=== PATIENT | female | born 1985 | race Caucasian/White ===

== ENCOUNTER 2024-12-06 23:23 | Outpatient (CLI) | payer MEDICAID, SELFPAY ==
[2024-12-06 23:39] VITALS: BMI 24.5
[2024-12-06 23:51] VITALS: BP 129/71; PULSE 90; RESP 16; TEMP 36.4
[2024-12-07 00:18] LABS: Color, Urine Yellow (Yellow); Glucose, Dipstick Normal (Normal); Ketone-Dipstick Negative (Negative); Leukocyte Esterase-Dipstick Negative /ul (Negative); Nitrite-Dipstick Negative (Negative); Occult Blood-Urine Negative /ul (Negative); Protein-Dipstick 15 mg/dl (Negative); Specific Gravity, Urine 1.015 (1.002-1.030); Urine Bilirubin Dipstick Negative (Negative)
[2024-12-07 00:38] LABS: ROM Internal Control Test YES-OK TO RESULT pt. (Internal QC); ROM Patient Test Negative (Negative); Record Kit Lot#, ROM+ K3607
[2024-12-07 01:01] LABS: Fetal Fibronectin Negative
[2024-12-07 01:02] LABS: Record Kit Lot#, fFN L4921
== END 2024-12-07 00:55 | disposition home or self-care (01) ==
LOC: WPOUT 23:37 → WP 23:38
PROVIDERS: Visit Provider Obstetrics & Gynecology
DX: O47.02 False labor before 37 completed weeks of gestation, second trimester (principal); Z3A.27 27 weeks gestation of pregnancy
CPT/HCPCS: 59025; 59050; 81002; 82731; 84112; 99221; G0378

== ENCOUNTER 2025-02-03 04:35 | Outpatient (CLI) | payer MEDICAID, SELFPAY ==
[2025-02-03 04:44] VITALS: BMI 25.5
--- OUTSIDE RECORDS SUMMARY | 2025-02-03 04:47 | XMS RPT_ITS | CCD ---
Author Organization [facility] Care Team Providers Care Demurrage Clerk Name Role Phone Rhys Drake W Unavailable Unavailable Rhys Drake W Unavailable Unavailable No Doctor Assigned, Nodr Unavailable Unavail able Michelle Mckee Unavailable Unavailable Unavailable Unavailable Dayan Galindo MD Primary Care Provider [phone] Mallmarva, Dayan Nag S Unavailable NAZIA GALINDOUN Primary Care Unavailable SUMMER MILNER Attending Unavail able Mallapareddi, Dayan Nag S Unavailable Unavail able Joseph Gallegos Unavailable Unavailable Unavailable Unavailable Issa Gomez Unavailable Unavailable Furnhaja, Fernando Unavailable Mallapareddi, Dayan Nag Betty Primary Care Unavailable Joseph Gallegos Attending Unavailable Mallapareddi, Dayan Nag Betty Primary Care Unavailable Hinds II, Dr. Azael Baker Attending Unavai lable Mallaparedantonio, Dayan Nag Betty Primary Care Unavailable Mallapareddi, Dayan Nag Betty Attending Unavailable Mallapareddi, Dayan Nag Betty Primary Care Unavailable Mallapareddi, Dayan Nag Betty Attending Unavailable DO ISSA GOMEZ Attending Unavailab le Mallapareddi, Dayan Nag Betty Primary Care Unavailable MALLAPAREDDI, DAYAN NAG BETTY Primary Care Unavailable Azael Hinds Attending Unavailable Azael Hinds Referring Unavailable MALLAPAREDDI, DAYAN NAG BETTY Primary Care Unavailable Azael Hinds Attending Unavailable Azael Hinds Referring Unavailable MALLAPAREDDI, DAYAN NAG BETTY Referring Unavailable Ms. MICHELLE MCKEE Primary Care Unavailable MALLAPAREDDI, DAYAN NAG BETTY Attending Unavailable MALLAPAREDDI, DAYAN NAG BETTY Referring Unavailable MALLAPAREDDI, DAYAN NAG BETTY Attending Unavailable MALLAPAREDDI, DAYAN NAG BETTY Referring Unavailable MALLAPAREDDI, DAYAN NAG BETTY Primary Care Unavailable MALLAPAREDDI, DAYAN LILIBETH HERNÁNDEZ Attending Unavailable MALLAPAREDDI, DAYAN NAG BETTY Referring Unavailable RYLEE, Arash VICTORAH Colby Primary Care Unavailable MALLAPAREDDI, DAYAN NAG BETTY Attending Unavailable VICENTA BARR Attending Unavailable MALLAPAREDDI, DAYAN Primary Care Unavailable Mateo POOL MPH, Dayan Nag S Primary Care Pro vider Mateo POOL MPH, Dayan Nag S Unavailable Unavailable Primary Care Provider Unavailabl e MATEO, DAYAN NAG S Primary Care Unavail able Mateo POOL, Dayan Primary Care Provider Unavailable Primary Care Provider Unavailtisha Grijalva MD, Shaila Segundo Unavailable Elsa Das RN Unavailable Unavailable Valeria Werner MD Unavailable Graf MISTRYC, Adriane Rhonda Unavailable [phone] BENY ALATORRE Attending Unavailab awilda HASSAN, PHYSICIAN Primary Care Unavailable SANJUANITA RODARTE Attending Unavailable SANJUANITA RODARTE Attending Unavailable ADRIANE LI Referring Unavailable SANJUANITA RODARTE Attending Unavailable SANJUANITA RODARTE Attending Unavailable Care Physician, No Primary Primary Care Unava ilable Lisa Chapman Attending Unavailable Care Physician, No Primary Primary Care Physicia n Unavailable Dr. Lisa Chapman DO Attending Physician DMITRY GUTIÉRREZ Attending Unavailable VALERIA WERNER Referring Unavailable LISA CHAPMAN Attending Unavailable OTONIEL DEL VALLE Referring Unavailable JEN BOWLING Attending Unavailable ARIN TAYLOR Attending Unavailable JEN BOWLING Attending Unavailable OTONIEL DEL VALLE Attending Unavailable OTONIEL DEL VALLE Referring Unavailable SANJUANITA RODARTE Referring Unavailable SANJUANITA RODARTE Referring Unavailable JEN BOWLING Referring Unavailable UNIQUE MEJIA Attending Unavailable JEN BOWLING Referring Unavailable ABAD STRONG Attending Unavailable PLOTTS, JEN Referring Unavailable PLOTTS, JEN Referring Unavailable PLOTTS, JEN Referring Unavailable PLOTTS, JEN Referring Unavailable PLOTTS, JEN Attending Unavailable PLOTTS, JEN Referring Unavailable PLOTTS, JEN Attending Unavailable BRIDGET, SANJUANITA Referring Unavailable SHINDORF, SANJUANITA Referring Unavailable ROMMEL, LISA Attending Unavailable VALERIA WERNER Attending Unavailable SHINDORF, SANJUANITA Referring Unavailable LINDA COLON Attending Unavail able SHINRF, SANJUANITA Referring Unavailable SABINA UNIQUE James Referring Unavailable OTONIEL DEL VALLE Attending Unavailable SHINPATRICK, SANJUANITA Referring Unavailable Medications Current Medications Medication Drug Class(es) Dates Sig (Normalized) Sig (Original) acetaminophen 325 mg / oxyCODONE hydrochloride 5 mg oral tablet (3 sources) Opioid Agonist Start: 09-09-2023 End: 09-16-2023 take 1 tablet by mouth every six hours for pain oxyCODONE-acetami nophen (Percocet) 5-325 mg tablet Indications: Kidney stone on right side Take 1 tablet by mouth every 6 hours if needed for severe pain (7 - 10) for up to 7 days. 4 tablet 09/09/2023 09/16/2023 Active Start: 12-24-2015 End: 12-06-2024 Oxycodone-Acetaminophen 1 TA BLET tablet Discontinued 2 {tbl} PO EVERY 4 HOURS NEEDED as needed for Moderate-Severe pain 10 0 December 24, 2015 12:00am December 06, 2024 11:54pm albendazole 200 mg oral tablet (2 sources) Antihelminthic Start: 05-02-2021 End: 05-05-2021 take 2 tablets by mouth once daily albendazole (ALBENZA) 200 mg tablet Indications: Rash and nonspecific skin eruption Take 2 (two) tablets (400 mg total) by mouth daily for 3 days . 6 tablet 0 05/02/2021 05/05/2021 Active aspirin 81 mg delayed release oral tablet (14 sources) Platelet Aggregation Inhibitor, Nonsteroidal Anti-inflammatory Drug Start: 10-13-2024 take 2 tablets by mouth once daily aspirin, enteric coated (ECOTRIN LOW STRENGTH) 81 mg EC tablet Take 2 tablets by mouth once daily. 180 tablet 2 10/13/2024 Active Start: 08-04-2024 End: 10-13-2024 take 1 tablet by mouth once daily aspirin, enteric coated (ECOTRIN LOW STRENGTH) 81 mg EC tablet Indications: Encounter for supervision of high risk in first trimester, antepartum (HCC) Take 1 tablet by mouth once daily. 90 tablet 3 08/04/2024 10/13/2024 Discontinued diphenhydrAMINE hydrochloride 25 mg oral capsule (10 sources) Histamine-1 Receptor Antagonist Start: 08-04-2024 take 1 capsule by mouth every twenty-four hours as needed BANOPHEN 25 mg capsule Take 25 mg by mouth at bedtime as needed. 08/04/2024 Active enteric contrast (will be provided with radiology test) (1 source) Start: 05-01-2024 End: 05-02-2024 enteric contrast (will be provided with radiology test) Indications: Encounter for follow-up surveillance of melanoma For CT CHESTABD/PEL W IVCON Routine order Administer, As Directed One Time Only, via Oral, Rectal, both Oral and Rectal, Enteric Tube, Stoma or Indwelling Catheter, Enteric Contrast as designated per enteric contrast guidelines 1 Each 05/01/2024 05/02/2024 Active famotidine 20 mg oral tablet (14 sources) Histamine-2 Receptor Antagonist Start: 08-04-2024 End: 10-13-2024 take 1 tablet by mouth twice daily famotidine (PEPCID) 20 mg tablet Take 1 tablet by mouth two times a day. 60 tablet 2 10/13/2024 Active gabapentin 100 mg oral capsule (10 sources) Anti-epileptic Agent Start: 04-17-2024 End: 05-01-2024 take 1 capsule by mouth three times daily gabapentin (NEURONTIN) 100 mg capsule Take 1 capsule by mouth three times a day for 14 days. 42 capsule 04/17/2024 Active iv contrast (will be provided with radiology test) (20 sources) Start: 05-01-2024 End: 05-02-2024 iv contrast (will be provided with radiology test) Indications: Encounter for follow-up surveillance of melanoma CT Chest ABD/PEL-Inject, intravenously, once for 1 dose.No IV access, insert saline lock prior to the beginning of sedation, infusion, injection of imaging exam. Discontinue saline lock post exam. If Pt. has a central line or IVAD, may access for administration according to line specific nursing protocol. Once exam is complete flush line and de-access according to line specific nursing protocol in the CT contrast administration guidelines link. 1 Each 05/01/2024 05/02/2024 Active Start: 04-09-2024 End: 08-04-2024 iv contrast (will be provide d with radiology test) CT Chest ABD/PEL-Inject, intravenously, once for 1 dose.No IV access, insert saline lock prior to the beginning of sedation, infusion, injection of imaging exam. Discontinue saline lock post exam. If Pt. has a central line or IVAD, may access for administration according to line specific nursing protocol. Once exam is complete flush line and de-access according to line specific nursing protocol in the CT contrast administration guidelines link. 1 Each 04/09/2024 08/04/2024 Discontinued Start: 04-09-2024 End: 04-10-2024 inject 1 dose intravenously once iv contrast (will be provided with radiology test) MRI Brain Inject, intravenously, once for 1 dose.No IV access, insert saline lock prior to beginning of sedation, infusion, injection of imaging exam.Discontinue saline lock post exam. If Pt. has a central line or IVAD, may access for administration according to line specific nursing protocol.Once exam is complete flush line and de-access according to line specific nursing protocol in the MR contrast administration guidelines link 1 Each 04/09/2024 04/10/2024 Active Start: 04-09-2024 iv contrast (w ill be provided with radiology test) CT Chest ABD/PEL-Inject, intravenously, once for 1 dose.No IV access, insert saline lock prior to the beginning of sedation, infusion, injection of imaging exam. Discontinue saline lock post exam. If Pt. has a central line or IVAD, may access for administration according to line specific nursing protocol. Once exam is complete flush line and de-access according to line specific nursing protocol in the CT contrast administration guidelines link. 1 Each 04/09/2024 Active norethindrone 0.35 mg oral tablet (20 sources) Start: 09-24-2023 End: 08-25-2024 take 1 tablet by mouth once daily Norethindrone, Contraceptive, (CANDICE) 0.35 mg tablet Take 1 tablet by mouth once daily. 84 tablet 3 09/24/2023 08/25/2024 Active Start: 10-21-2019 End: 04-18-2023 norethindrone (AYGESTIN) 5 m g tablet Indications: Excessive bleeding in premenopausal period Take 1 tablet by mouth as directed. one by mouth tid x 3 days, bid x 3 days, then daily for up to 10 days 25 tablet 0 10/21/2019 04/18/2023 Discontinued Comment on above: Take 1 tablet by carlos alberto th as directed. one by mouth tid x 3 days, bid x 3 days, then daily for up to 10 days ondansetron 4 mg oral tablet (12 sources) Serotonin-3 Receptor Antagonist Start: take 1 tablet by mouth every eight hours as needed ondansetron (ZOFRAN) 4 mg tablet Take 1 tablet by mouth every 8 hours as needed. 60 tablet 1 08/26/2024 Active Start: 09-09-2023 End: 09-09-2023 4 mg, intravenous, Once, On Sat09/09/23 at 1555, For 1 dose, When administering via IV Push, administer over 3-5 minutes. Start: 09-09-2023 End: 09-16-2023 take 1 tablet by mouth every eight hours for nausea ondansetron ODT (Zofran-ODT) 4 mg disintegrating tablet Indications: Kidney stone on right side Take 1 tablet (4 mg) by mouth every 8 hours if needed for nausea or vomiting for up to 7 days. 2 tablet 09/09/2023 09/16/2023 Active phenazopyridine hydrochloride 200 mg oral tablet (2 sources) Start: 09-14-2021 take 1 tablet by mouth every eight hours as needed Pyridium 200 mg oral tablet ; 1 tab(s) orally every 8 hours, As Needed Quantity: 21 Refills: 0 Ordered: 14-Sep-2021 Azael Hinds Start: 14-Sep-2021 Generic Substitution Allowed Comments: May discolor urine or feces.Medication should be taken with plenty of water.Take with food or milk. Comment on above: May discolor urine o r feces.Medication should be taken with plenty of water.Take with food or milk. PNV no.95/ferrous fum/folic ac ( ORAL) (14 sources) PNV no.95/ferrou s fum/folic ac ( ORAL) Take by mouth. Active Vit,Hood 94-Vxxa-Esvbe (Prenatabs Fa) 1 TABLET tablet (1 source) Start: 12-22-2015 take 1 tablet by mouth once daily Vit,Hood 29-Ftsk-Vgbbl (Prenatabs Fa) 1 TABLET tablet Active 1 {tbl} PO DAILY December 22, 2015 12:00am Complies with drug therapy sertraline 100 mg oral tablet (9 sources) Serotonin Reuptake Inhibitor Start: 12-06-2024 take 1 tablet by mouth once daily Sertraline (Zoloft) 100 mg tablet Active 100 mg PO DAILY December 06, 2024 12:00am Complies with drug therapy Start: 09-02-2024 take 1 tablet by carlos alberto th once daily sertraline (ZOLOFT) 50 mg tablet Take 50 mg by mouth once daily. 09/02/2024 Active tamsulosin hydrochloride 0.4 mg oral capsule (1 source) alpha-Adrenergic Rasta Start: 09-09-2023 End: 09-16-2023 take 1 capsule by mouth once daily tamsulosin (Flomax) 0.4 mg 24 hr capsule Indications: Kidney stone on right side Take 1 capsule (0.4 mg) by mouth once daily for 7 days. 7 capsule 09/09/2023 09/16/2023 Active Completed/Discontinued Medications Medication Drug Class(es) Dates Sig (Normalized) Sig (Original) acetaminophen 325 mg / HYDROcodone bitartrate 5 mg oral tablet (2 sources) Opioid Agonist Start: 09-14-2021 End: 09-18-2021 take 1 tablet by mouth every eight hours hydrocodone-acetam inophen 5 mg-325 mg oral tablet ; 1 tab(s) orally every 8 hours Quantity: 20 Refills: 0 Ordered: 14-Sep-2021 Azael Hinds Start: 14-Sep-2021 End: 18-Sep-2021 Generic Substitution Allowed Comments: Caution [email or web address] prohibits the transfer of this drug to any person other than the person for whom it was prescribed.May cause drowsiness. Alcohol may intensify this effect. Use care when operating dangerous machinery.This product contains acetaminophen. Do not use with any other product containing acetaminophen to prevent possible liver damage.Using more of this medication than prescribed may cause serious breathing problems. Comment on above: [email or web address] prohibits the transfer of this drug to any person other than the person for whom it was prescribed.May cause drowsiness. Alcohol may intensify this effect. Use care when operating dangerous machinery.This product contains acetaminophen. Do not use with any other product containing acetaminophen to prevent possible liver damage.Using more of this medication than prescribed may cause serious breathing problems. [id number] 200 actuat albuterol 0.09 mg/actuat metered dose inhaler (20 sources) beta2-Adrenergic Agonist Start: 09-07-2019 take 1-2 puff(s) by inhalation every four to six hours as needed Ventolin HFA 108 (90 Base) MCG/ACT Inhalation Aerosol Solution INHALE 1 TO 2 PUFFS EVERY 4 TO 6 HOURS NEEDED. Quantity: 1 Refills: 0 Ordered: 07-Sep-2019 Michelle Govea Start : 07-Sep-2019 Active Start: 05-27-2015 End: 08-04-2024 take 2 puff(s) by inhalation every four hours as needed for wheezing albuterol HFA (PROAIR HFA) 90 mcg/actuation inhaler Inhale 2 Puffs as instructed every 4 hours as needed for Wheezing/Shortness of Breath. 1 Inhaler 0 05/27/2015 08/04/2024 Discontinued (Course of therapy completed) Comment on above: Inhale 2 Puffs as in structed every 4 hours as needed for Wheezing/Shortness of Breath. ALPRAZolam 0.5 mg oral tablet (6 sources) Benzodiazepine Start: take 0.5-1 tablets by mouth three times daily as needed ALPRAZolam 0.5 MG Oral Tablet 0.5 - 1 tabs 3 times daily as needed Quantity: 30 Refills: 0 Ordered: 18-Apr-2021 Mateo POOL, MPH, Dayan Mcelroy Start : 18-Apr-2021 Active Benadryl Allergy TABS (6 sources) Benadryl Allergy TABS Quantity: 0 Refills: 0 Ordered: 18-Apr-2021 DO Active cephalexin 500 mg oral tablet (2 sources) Cephalosporin Antibacterial Start: End: take 1 tablet by mouth four times daily cephalexin 500 mg oral tablet ; 1 tab(s) orally 4 times a day Quantity: 28 Refills: 0 Ordered: 18-Sep-2021 Joseph Gallegos Start: 18-Sep-2021 End: 24-Sep-2021 Generic Substitution Allowed Comments: Finish all this medication unless otherwise directed by prescriber. Comment on above: Finish all this medi cation unless otherwise directed by prescriber. Cetirizine (6 sources) Histamine-1 Receptor Antagonist Zyrtec TABS Quantity: 0 Refills: 0 Ordered: 18-Aug-2019 DO Active ciprofloxacin 250 mg oral tablet (2 sources) Quinolone Antimicrobial Start: End: take 1 tablet by mouth twice daily Cipro 250 mg oral tablet ; 1 tab(s) orally 2 times a day Quantity: 6 Refills: 0 Ordered: 14-Sep-2021 Azael Hinds Start: 14-Sep-2021 End: 16-Sep-2021 Generic Substitution Allowed Comments: Avoid prolonged or excessive exposure to direct and/or artificial sunlight while taking this medication.Check with your doctor before becoming .Do not take dairy products, antacids, or iron preparations within one hour of this medication.Finish all this medication unless otherwise directed by prescriber.Medicati on should be taken with plenty of water. Comment on above: Avoid prolonged or e xcessive exposure to direct and/or artificial sunlight while taking this medication.Check with your doctor before becoming .Do not take dairy products, antacids, or iron preparations within one hour of this medication.Finish all this medication unless otherwise directed by prescriber.Medication should be taken with plenty of water. fluticasone propionate 0.05 mg/actuat metered dose nasal spray (6 sources) Corticosteroid Start: take 1 spray(s) nasal route once daily Fluticasone Propionate 50 MCG/ACT Nasal Suspension instill 1 spray into each nostril once daily Quantity: 16 Refills: 0 Ordered: 19-Jun-2019 DO Start : 19-Jun-2019 Active iohexol (OMNIPaque) 350 mg iodine/mL solution 67 mL (1 source) Start: End: 67 mL, intravenous, Once in imaging, Starting on Sat09/09/23 at 1808, For 1 dose 1 ml ketorolac tromethamine 30 mg/ml injection (2 sources) Nonsteroidal Anti-inflammatory Drug, Cyclooxygenase Inhibitor Start: End: 07-15-2 024 15 mg, intravenous, Once, On Sat09/09/23 at 1555, For 1 dose Start: 09-09-2023 End: 09-12-2023 take 1 tablet by mouth every six hours for pain ketorolac (Toradol) 10 mg tablet Indications: Kidney stone on right side Take 1 tablet (10 mg) by mouth every 6 hours if needed for moderate pain (4 - 6) for up to 3 days. 12 tablet 09/09/2023 09/12/2023 Active mebendazole 100 mg chewable tablet (6 sources) Antihelminthic Start: 04-18-2021 take 1 tablet by mouth twice daily Emverm 100 MG Oral Tablet Chewable CHEW AND SWALLOW 1 TABLET TWICE DAILY FOR 3 DAYS Quantity: 6 Refills: 0 Ordered: 18-Apr-2021 Mateo POOL, MPH, Dayan Mcelroy Start : 18-Apr-2021 Active 1 ml morphine sulfate 4 mg/ml prefilled syringe (1 source) Opioid Agonist Start: 09-09-2023 End: 09-09-2023 4 mg, intravenous, Once, On Sat09/09/23 at 1650, For 1 dose naproxen 250 mg oral tablet (1 source) Nonsteroidal Anti-inflammatory Drug Start: 12-24-2015 End: 12-06-2024 take 250-500 mg by mouth every eight hours as needed for pain Naproxen 250 MG tablet Discontinued 250 - 500 mg PO EVERY 8 HOURS NEEDED as needed for MILD PAIN 30 0 December 24, 2015 12:00am December 06, 2024 11:54pm omeprazole 40 mg delayed release oral capsule (1 source) Proton Pump Inhibitor Start: 07-19-2009 End: 04-18-2023 omeprazole(PRILOSE C 40 MG CAP) Take one(1) tablet daily. 30 0 07/19/2009 04/18/2023 Discontinued Comment on above: Take one(1) tablet d aily. predniSONE 20 mg oral tablet (2 sources) Start: 09-16-2019 End: 09-20-2019 take 2 tablets by mouth once daily at mealtime predniSONE 20 mg oral tablet ; 2 tab(s) orally once a day Quantity: 10 Refills: 0 Ordered: 16-Sep-2019 Tiara Hannon Start: 16-Sep-2019 End: 20-Sep-2019 Status: Other Generic Substitution Allowed Comments: It is very important that you take or use this exactly as directed. Do not skip doses or discontinue unless directed by your doctor.Obtain medical advice before taking any non-prescription drugs as some may affect the action of this medication.Take with food or milk. Comment on above: It is very important that you take or use this exactly as directed. Do not skip doses or discontinue unless directed by your doctor.Obtain medical advice before taking any non-prescription drugs as some may affect the action of this medication.Take with food or milk. 1000 ml sodium chloride 9 mg/ml injection (1 source) Start: 09-09-2023 End: 09-09-2023 1,000 mL, intravenous, at 999 mL/hr, Administer over 1 Hours, Once, On Sat09/09/23 at 1555, For 1 dose Problems Active Problems Problem Classification Problem Date Documented Da te Episodic/Chronic Abdominal pain (20 sources) Lower abdominal pain, unspecified; Translations: [Right lower quadrant pain] Onset: 8 Resolved: 0 05-01-2022 Episodic Anxiety disorders (20 sources) Anxiety; Translations: [Anxiety state, unspecified] Onset: 5 08-04-2024 Chronic Calculus of urinary tract (6 sources) Ureteric stone; Translations: [Calculus of ureter] Onset: 2 02-22-2022 Episodic Cancer; other and unspecified primary (20 sources) H/O Malignant melanoma; Translations: [Encounter for follow-up examination after completed treatment for malignant neoplasm] Onset: 5 05-01-2024 Episodic Contraceptive and procreative management (1 source) Patient encounter status; Translations: [Encounter for insertion of intrauterine contraceptive device] 04-23-2024 Episodic Early or threatened labor (20 sources) False labor before 37 completed weeks of gestation, unspecified trimester; Translations: [Threatened premature labor, antepartum condition or complication] Onset: 8 Resolved: 8 11-11-2007 Episodic Esophageal disorders (20 sources) Gastroesophageal reflux disease; Translations: [Gastro-esophageal reflux disease without esophagitis] Onset: 0 07-19-2009 Chronic Fever of unknown origin (1 source) Fever, unspecified; Translations: [Fever, unspecified] Onset: 2 Episodic Gastritis and duodenitis (6 sources) Gastritis; Translations: [Unspecified gastritis and gastroduodenitis, without mention of hemorrhage] Episodic Genitourinary symptoms and ill-defined conditions (1 source) Dysuria; Translations: [Dysuria] Onset: 5 Episodic Headache; including migraine (2 sources) Headache; including migraine; Translations: [Headache, unspecified] Onset: 2 Hemorrhoids (2 sources) Internal hemorrhoids; Translations: [Other hemorrhoids] Onset: 4 09-20-2023 Episodic Immunizations and screening for infectious disease (20 sources) Contact with or exposure to other viral diseases; Translations: [Contact with and (suspected) exposure to covid-19] Onset: 5 02-22-2022 Episodic Melanomas of skin (20 sources) Malignant melanoma of trunk; Translations: [Malignant melanoma of other part of trunk] Onset: 5 03-26-2024 Chronic Other complications of (20 sources) Multigravida of advanced maternal age; Translations: [Supervision of elderly multigravida, first trimester] Onset: 5 08-04-2024 Episodic Other complications of (17 sources) High risk ; Translations: [Supervision of high risk , unspecified, first trimester] Onset: 5 08-04-2024 Episodic Other complications of (15 sources) Heartburn; Translations: [Other specified related conditions, first trimester] Onset: 5 08-04-2024 Episodic Other complications of (2 sources) Vomiting of , unspecified; Translations: [Unspecified vomiting of , unspecified as to episode of care or not applicable] Onset: 5 08-26-2024 Episodic Other complications of (10 sources) Diseases of the digestive system complicating , second trimester; Translations: [Other current conditions classifiable elsewhere of mother, antepartum condition or complication] Onset: 5 09-14-2024 Episodic Other complications of (1 source) Supervision of high risk , unspecified, third trimester; Translations: [Supervision of high risk in third trimester (HCC)] Onset: 5 Episodic Other complications of (1 source) Supervision of with other poor reproductive or obstetric history, third trimester; Translations: [Hx of pre-eclampsia in prior , currently , third trimester ([facility])] Onset: 5 Episodic Other complications of (1 source) Other specified related conditions, third trimester; Translations: [Heartburn during in third trimester ([facility])] Onset: 5 Episodic Other complications of (2 sources) Supervision of elderly multigravida, second trimester; Translations: [Advanced maternal age in multigravida, second trimester ([facility])] Onset: 5 Episodic Other complications of (1 source) Supervision of elderly multigravida, third trimester; Translations: [Multigravida of advanced maternal age in third trimester ([facility])] Onset: 5 Episodic Other complications of (1 source) Other specified related conditions, unspecified trimester; Translations: [Pelvic pressure in ([facility])] Onset: 5 Episodic Other diseases of kidney and ureters (1 source) Hydronephrosis co-occurrent and due to calculus of kidney and ureter; Translations: [Hydronephrosis with renal and ureteral calculous obstruction] 02-13-2022 Episodic Other female genital disorders (16 sources) H/O: premature delivery; Translations: [Personal history of pre-term labor] Onset: 5 08-04-2024 Episodic Other gastrointestinal disorders (6 sources) Chronic constipation; Translations: [Constipation, unspecified] Episodic Other gastrointestinal disorders (6 sources) Diarrhea; Translations: [Diarrhea] Episodic Other gastrointestinal disorders (2 sources) Constipation, unspecified; Translations: [Constipation, unspecified] Onset: 5 Episodic Other gastrointestinal disorders (1 source) Heartburn; Translations: [Heartburn during in third trimester ([facility])] Onset: 5 Episodic Other infections; including parasitic (4 sources) Disease caused by parasite; Translations: [Infestation, unspecified] Episodic Other inflammatory condition of skin (1 source) Pruritus, unspecified; Translations: [Itching] Onset: 5 Episodic Other lower respiratory disease (6 sources) Cough; Translations: [Cough] Episodic Other lower respiratory disease (1 source) Shortness of breath; Translations: [Shortness of breath] Onset: 2 Episodic Other screening for suspected conditions (not mental disorders or infectious disease) (4 sources) Cancer cervix screening status; Translations: [Encounter for screening for malignant neoplasm of cervix] Onset: 5 04-18-2023 Episodic Other skin disorders (1 source) Eruption; Translations: [Rash and other nonspecific skin eruption] Episodic Other upper respiratory disease (6 sources) Nasal discharge; Translations: [Other disease of nasal cavity and sinuses] Episodic Other upper respiratory disease (1 source) Nasal congestion; Translations: [Nasal congestion] Onset: 2 Episodic Residual codes; unclassified (2 sources) Family history of malignant melanoma; Translations: [Family history of malignant neoplasm of other organs or systems] 05-28-2024 Episodic Residual codes; unclassified (2 sources) Family history of breast cancer; Translations: [Family history of malignant neoplasm of breast] 05-28-2024 Episodic Residual codes; unclassified (19 sources) History of pre-eclampsia; Translations: [Personal history of other complications of , childbirth and the puerperium] Onset: 5 08-04-2024 Episodic Residual codes; unclassified (2 sources) Gestation period, 9 weeks; Translations: [9 weeks gestation of ] 08-04-2024 Episodic Residual codes; unclassified (2 sources) Gestation period, 12 weeks; Translations: [12 weeks gestation of ] 08-26-2024 Episodic Residual codes; unclassified (1 source) Gestation period, 15 weeks; Translations: [15 weeks gestation of ] 09-14-2024 Episodic Residual codes; unclassified (3 sources) Gestation period, 19 weeks; Translations: [19 weeks gestation of ] 10-13-2024 Episodic Residual codes; unclassified (2 sources) Gestation period, 27 weeks; Translations: [27 weeks gestation of ] 12-14-2024 Episodic Residual codes; unclassified (1 source) 30 weeks gestation of ; Translations: [30 weeks gestation of (HCC)] Onset: Episodic Residual codes; unclassified (1 source) 24 weeks gestation of ; Translations: [24 weeks gestation of (HCC)] Onset: 5 Episodic Residual codes; unclassified (1 source) 28 weeks gestation of ; Translations: [28 weeks gestation of (HCC)] Onset: 5 Episodic Residual codes; unclassified (1 source) 27 weeks gestation of ; Translations: [27 weeks gestation of ([facility])] Onset: 5 Episodic Residual codes; unclassified (1 source) 19 weeks gestation of ; Translations: [19 weeks gestation of ([facility])] Onset: 5 Episodic Secondary malignancies (1 source) Metastatic malignant melanoma ; Translations: [Secondary and unspecified malignant neoplasm of lymph node, unspecified] 05-01-2024 Chronic Skin and subcutaneous tissue infections (5 sources) Infection of skin; Translations: [Unspecified local infection of skin and subcutaneous tissue] Episodic Spondylosis; intervertebral disc disorders; other back problems (3 sources) Cervicalgia; Translations: [Dorsalgia, unspecified] Onset: 3 Episodic Substance-related disorders (4 sources) Cigarette smoker ; Translations: [Nicotine dependence, cigarettes, uncomplicated] Onset: 2 Chronic Unclassified (2 sources) LOWER R ABD PAIN 09-18-2021 Comment on above: LOWER R ABD PAIN Unclassified (1 source) Pain due to ureteral stent 09-18-2021 Unclassified (2 sources) SOB/FEVER/CONGESTION 11-29-2021 Comment on above: SOB/FEVER/CONGESTION Unclassified (1 source) VIRAL SYNDROME VIRAL SYNDROME 11-29-2021 Comment on above: VIRAL SYNDROME VIRAL SYNDROME Unclassified (1 source) Cough, unspecified; Translations: [Cough, unspecified] Onset: 2 Unclassified (1 source) Contact with and (suspected) exposure to COVID-19; Translations: [Contact with and (suspected) exposure to COVID-19] Onset: 2 Unclassified (1 source) Patient encounter status 04-23-2024 Unclassified (17 sources) [facility] Education - COMMON Onset: 5 07-16-2024 Unclassified (17 sources) Education - [place] Onset: 5 07-16-2024 Unclassified (1 source) Back pain in (HCC); Translations: [Back pain in (HCC)] Onset: 5 Viral infection (2 sources) Viral disease; Translations: [Unspecified viral infection] 11-29-2021 Episodic Viral infection (1 source) COVID-19; Translations: [COVID-19] Onset: 2 Past or Other Problems Problem Classification Problem Date Documented Date Episodic/Chronic Complication of device; implant or graft (2 sources) Ureteric pain; Translations: [Other complications due to genitourinary device, implant, and graft] Onset: 09-18-2021 09-18-2021 Episodic Deficiency and other anemia (20 sources) Anemia; Translations: [Anemia, unspecified] Onset: 10-01-2007 Resolved: 07-19-2009 07-19-2009 Episodic Melanomas of skin (1 source) Personal history of malignant melanoma of skin; Translations: [History of melanoma] Onset: 08-04-2024 Episodic Nonspecific chest pain (15 sources) Tight chest; Translations: [Other chest pain] Onset: 05-03-2021 Episodic Other complications of (20 sources) care for patient with recurrent loss, second trimester; Translations: [Recurrent loss, antepartum condition or complication] Onset: 05-19-2015 Resolved: 05-10-2017 02-20-2021 Episodic Other complications of (20 sources) Maternal tobacco use; Translations: [Smoking (tobacco) complicating , first trimester] Onset: 05-19-2015 Resolved: 05-10-2017 02-20-2021 Episodic Other complications of (1 source) Supervision of high risk , unspecified, second trimester; Translations: [Encounter for supervision of high risk in second trimester, antepartum (HCC)] Onset: 09-14-2024 Episodic Other complications of (1 source) Supervision of elderly multigravida, first trimester; Translations: [Multigravida of advanced maternal age in first trimester ([facility])] Onset: 08-04-2024 Episodic Other complications of (1 source) Supervision of high risk , unspecified, first trimester; Translations: [Encounter for supervision of high risk in first trimester, antepartum ([facility])] Onset: 08-04-2024 Episodic Other diseases of kidney and ureters (1 source) Hydronephrosis with renal and ureteral calculous obstruction; Translations: [Hydronephrosis with renal and ureteral calculous obstruction] Onset: 09-14-2021 Episodic Other female genital disorders (1 source) Personal history of pre-term labor; Translations: [History of delivery] Onset: 08-04-2024 Episodic Other infections; including parasitic (20 sources) 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; Translations: [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] Onset: 04-23-2024 04-23-2024 Episodic Other infections; including parasitic (2 sources) Unspecified parasitic disease; Translations: [Unspecified parasitic disease] Onset: 05-06-2021 Episodic Other and delivery including normal (20 sources) Normal ; Translations: [Encounter for supervision of other normal , unspecified trimester] Onset: 06-30-2007 Resolved: 05-10-2017 07-19-2009 Episodic Other skin disorders (20 sources) Decorative tattoo; Translations: [Other specified disorders of pigmentation] Onset: 05-19-2015 02-20-2021 Episodic Residual codes; unclassified (20 sources) H/O: eclampsia; Translations: [Personal history of other complications of , childbirth and the puerperium] Onset: 05-19-2015 02-20-2021 Episodic Residual codes; unclassified (20 sources) H/O: depression; Translations: [Personal history of other complications of , childbirth and the puerperium] Onset: 05-19-2015 02-20-2021 Episodic Residual codes; unclassified (1 source) Personal history of other complications of , childbirth and the puerperium; Translations: [History of pre-eclampsia] Onset: 08-04-2024 Episodic Residual codes; unclassified (1 source) 15 weeks gestation of ; Translations: [15 weeks gestation of (HCC)] Onset: 09-14-2024 Episodic Residual codes; unclassified (1 source) 12 weeks gestation of ; Translations: [12 weeks gestation of (HCC)] Onset: 08-26-2024 Episodic Residual codes; unclassified (1 source) 9 weeks gestation of ; Translations: [9 weeks gestation of (HCC)] Onset: 08-04-2024 Episodic Urinary tract infections (3 sources) Urinary tract infectious disease; Translations: [Urinary tract infection, site not specified] Onset: 09-18-2021 09-18-2021 Episodic Results Test Name Value Interpretation Reference Range Facility CBC panel Auto (Bld)on 12-14 Erythrocyte distribution width (RBC) [Ratio] 13.6 % Normal 11.5-15.0 [facility] Comment on above: Order Comment: Speci men Type: BLOOD SPECIMEN Ordering Facility: [facility] Address: [address] [place] [address] Performed By: #### 7 3752-8, 5195-3, 13566-2 #### [facility] CLIA [id number] [address] [place] [address] [place] Hematocrit (Bld) [Volume fraction] 34.8 % Low 36.0-46.0 [facility] Comment on above: Order Comment: Speci men Type: BLOOD SPECIMEN Ordering Facility: [facility] Address: [address] [place] [address] Performed By: #### 7 3752-8, 5-3, 84279-1 #### [facility] CLIA [id number] [address] [place] [address] [place] Hemoglobin (Bld) [Mass/Vol] 11.7 g/dL Normal 11.5-15.5 [facility] Comment on above: Order Comment: Speci men Type: BLOOD SPECIMEN Ordering Facility: [facility] Address: [address] [place] [address] Performed By: #### 7 3752-8, 5194-3, 55467-5 #### [facility] CLIA [id number] [address] [place] [address] [place] MCH (RBC) [Entitic mass] 30.0 pg Normal 26.0-34.0 [facility] Comment on above: Order Comment: Speci men Type: BLOOD SPECIMEN Ordering Facility: [facility] Address: [address] [place] [address] Performed By: #### 7 3752-8, 519-3, 35454-0 #### [facility] CLIA [id number] [address] [place] [address] [place] MCHC (RBC) [Mass/Vol] 33.6 g/dL Normal 30.5-36.0 [facility] Comment on above: Order Comment: Speci men Type: BLOOD SPECIMEN Ordering Facility: [facility] Address: [address] [place] [address] Performed By: #### 7 3752-8, 5195-3, 84539-3 #### [facility] CLIA [id number] [address] [place] [address] [place] MCV (RBC) [Entitic vol] 89.2 fL Normal 80.0-100.0 [facility] Comment on above: Order Comment: Speci men Type: BLOOD SPECIMEN Ordering Facility: [facility] Address: [address] [place] [address] Performed By: #### 7 3752-8, 5195-3, 44139-7 #### [facility] CLIA [id number] [address] [place] [address] [place] Nucleated RBC (Bld) [#/Vol] 10*3/uL Normal <0.01 [facility] Comment on above: Order Comment: Speci men Type: BLOOD SPECIMEN Ordering Facility: [facility] Address: [address] [place] [address] Performed By: #### 7 3752-8, 5195-3, 91245-6 #### [facility] CLIA [id number] [address] [place] [address] [place] Platelet mean volume (Bld) [Entitic vol] 8.3 fL Low 9.0-12.7 [facility] Comment on above: Order Comment: Speci men Type: BLOOD SPECIMEN Ordering Facility: [facility] Address: [address] [place] [address] Performed By: #### 7 3752-8, 5195-3, 12953-6 #### [facility] CLIA [id number] [address] [place] [address] [place] Platelets (Bld) [#/Vol] 308 10*3/uL Normal 150-400 [facility] Comment on above: Order Comment: Speci men Type: BLOOD SPECIMEN Ordering Facility: [facility] Address: [address] [place] [address] Performed By: #### 7 3752-8, 5195-3, 20956-6 #### [facility] CLIA [id number] [address] [place] [address] [place] RBC (Bld) [#/Vol] 3.90 10*6/uL Normal 3.90-5.20 [facility] Comment on above: Order Comment: Speci men Type: BLOOD SPECIMEN Ordering Facility: [facility] Address: [address] [place] [address] Performed By: #### 7 3752-8, 5195-3, 37741-2 #### [facility] CLIA [id number] [address] [place] [address] [place] WBC (Bld) [#/Vol] 11.56 10*3/uL High 3.70-11.00 [facility] Comment on above: Order Comment: Speci men Type: BLOOD SPECIMEN Ordering Facility: [facility] Address: [address] [place] [address] Performed By: #### 7 3752-8, 5195-3, 02576-5 #### [facility] CLIA [id number] [address] [place] [address] [place] GESTATIONAL GLUCOSE SCREEN, 1-HOUR, 50 GRAM, NON-FASTINGon 12-14-2024 Glucose [Mass/Vol] 77 mg/dL Normal 74-134 [facility] Comment on above: Order Comment: Speci men Type: BLOOD SPECIMEN Ordering Facility: [facility] Address: [address] [place] [address] Result Comment: [facility] Congress of Obstetricians and Gynecologists ([place]ena/Negro) guidelines state a gestational diabetes mellitus positive screen is made, in women not previously diagnosed with overt diabetes, when the 1 hr plasma glucose level is equal to or above 140 mg/dL. The [facility] recommends a 135 mg/dL cutoff. Performed By: #### 7 3752-8, 5195-3, 53085-5 #### [facility] CLIA [id number] [address] [place] [address] OF [facility] OB Triage Physician Noteon 1 OB Triage Physician Note [facility] Medical Records Department [address] [place] [address] OB Triage Physician Note 12/14/242103 MR#: [id number] Acct: [id number] Name: ADRIANE CARD Rep #: [id number] : 1985 39 From: Lisa Chapman DO PCP: Care Physician,No Primary Status:DEP CLI Y [email or web address] HPI - General General Date of Admission: 12/06/24 Date of Service: 12/06/24 Chief Complaint: r/o labor HPI Narrative ADRIANE CARD, is a 39 F who presents with contractions. No vb, lof. Good FM. Patient states she had a 3D ultrasound done at an outside clinic to get pictures of the baby, and she searched a picture online and was concerned about cervical funneling. She would like some reassurance. PFSH PFSH Home Medications ???Medication ???Instructions ???Recorded ???Last Taken ???Type vits,calcium no.78-iron 1 tab PO DAILY 12/22/15 Unknown Hi story fumarate-folic acid 29 mg-1 mg tablet (Prenatabs FA) sertraline 100 mg tablet (Zoloft) 100 mg PO DAILY 12/06/24 Unknown History Allergy/AdvReac Type Severity Reaction Status Date / Time No Known Allergies Allergy Verified 12/06/24 23:53 Social History Smoking Status: Former smoker History Elective abortions Hx Para 2 Spontaneous abortions Hx # Term Pregnancies Ectopic pregnancies Hx # Pregnancies Multiple births # of living children NST FHR Rate Baby A Baseline: 125 Variability:: Moderate NST Reactive:: Appropriate for gestational age Uterine Activity:: no ctx's Assessment Plan (1) 27 weeks gestation of : (2) Uterine contractions: PLAN: Cervix closed and patient comfortable appearing without regular ctx's on toco. D/c home with return precautions. 12/14/242106 Date Lisa Chapman DO Cosigner Signature (if applicable): Date CC: Dr. Lisa Chapman, DO; No Primary Care Physician Signed Normal [facility] Reagin and Treponema pallidu m IgG and IgM [Interp]on 12-14-2024 T. pallidum IgG+IgM IA Ql (S) Non-Reactive Normal Nonreactive [facility] Comment on above: Order Comment: Speci men Type: BLOOD SPECIMEN [facility] Facility: [facility] Address: [address] [place] [address] Performed By: #### 7 3752-8, 5195-3, 81282-7 #### [facility] CLIA [id number] [address] [place] [address] [place] Reagin+T pallidum IgG+IgM Se rPl-Impon 12-14-2024 Reagin and Treponema pallidum IgG and IgM [Interp] Cannot exclude recent Treponemal infection if specimen collected within 7-10 days after appearance of suspect lesions or 2-3 weeks after an exposure. Clinical correlation is required. Normal [facility] Comment on above: Order Comment: Speci men Type: BLOOD SPECIMEN [facility]ing Facility: [facility] Address: [address] [place] [address] Performed By: #### 7 3752-8, 5195-3, 43067-3 #### [facility] CLIA [id number] [address] [place] [address] [place] [address] [place] BILE ACIDS, TOTALon 12-12-19 25 Bile acid [Moles/Vol] 2.0 umol/L Normal <7.5 [facility] Comment on above: Order Comment: Good cheema Type: BLOOD SPECIMEN Ordering Facility: [facility] Address: [address] [place] [address] Result Comment: Refe rence interval applies to fasting specimens. The total serum bile acid concentration is increased after meals; hence, samples should be collected under fasting conditions, when possible. This does not apply to patients for whom intrahepatic cholestasis of as a diagnostic consideration; these patients will need peak bile acid testing, and samples should be postprandial. This serum bile acid assay should not be used for patients receiving ursodeoxycholic acid, nor should it be used as the primary assay for the screening or diagnosis of genetic disorders of bile acid metabolism. Patient Reference Intervals: 0 Days to 5 Months: Not established 6 Months to 23 Months: <25.8 umol/L 2 Years to 4 Years: <20.9 umol/L 5 Years to 9 Years: <12.4 umol/L 10 Years to 19 Years: <13.6 umol/L 20 Years to 59 Years: <7.5 umol/L >=60 Years: <8.3 umol/L Reference Intervals (Non-fasting): First Trimester (up to 13 weeks gestation): < 15.3 umol/L Reference Interval (Non-fasting): Second Trimester (13 - 27 weeks gestation): < 11.4 umol/L Reference Interval (Non-fasting): Third Trimester (> 27 weeks gestation): < 10.4 umol/L Performed By: #### 2 4325-3, 76085-7 #### [facility] CLIA [id number] [address] [place] [address] [place] Basic metabolic 2000 panelon 12-11-2024 Anion gap [Moles/Vol] 9 mmol/L Normal 8-15 [facility] Comment on above: Order Comment: Good cheema Type: BLOOD SPECIMEN Ordering Facility: [facility] Address: [address] [place] [address] Performed By: #### 2 4325-3, 36153-4 #### [facility] CLIA [id number] [address] [place] [address] [place] Calcium [Mass/Vol] 8.1 mg/dL Low 8.5-10.2 [facility] Comment on above: Order Comment: Speci men Type: BLOOD SPECIMEN Ordering Facility: [facility] Address: [address] [place], [place] [id number] Performed By: #### 2 4325-3, 85773-7 #### [facility] CLIA [id number] [address] [place] [address] [place] Chloride [Moles/Vol] 106 mmol/L Normal 98-107 [facility] Comment on above: Order Comment: Speci men Type: BLOOD SPECIMEN [facility]ing Facility: [facility] Address: [address] [place], [place] [address] Performed By: #### 2 4324-3, 68546-9 #### [facility] CLIA [id number] [address] [place] [address] [place] CO2 [Moles/Vol] 23 mmol/L Normal 22-30 [facility] Comment on above: Order Comment: Speci men Type: BLOOD SPECIMEN Ordering Facility: [facility] Address: [address] [place] [address] Performed By: #### 2 5-3, 87732-2 #### [facility] CLIA [id number] [address] [place] [address] [place] Creatinine [Mass/Vol] 0.53 mg/dL Low 0.58-0.96 [facility] Comment on above: Order Comment: Speci men Type: BLOOD SPECIMEN Ordering Facility: [facility] Address: [address] [place] [address] Performed By: #### 2 4325-3, 40443-6 #### [facility] CLIA [id number] [address] [place] [address] [place] eGFRcr SerPlBld CKD-EPI 2020 122 mL/min/1.73m??? Normal >=60 [facility] Comment on above: Order Comment: Good cheema Type: BLOOD SPECIMEN Ordering Facility: [facility] Address: [address] [place] [address] Result Comment: Thee mated Glomerular Filtration Rate (eGFR) is calculated using the 2020 CKD-EPI creatinine equation. This equation utilizes serum creatinine, sex, and age as parameters. The creatinine assay has traceable calibration to isotope dilution-mass spectrometry. Refer to KDIGO guidelines for clinical interpretation. In patients with unstable renal function, e.g. those with acute kidney injury, the eGFR may not accurately reflect actual GFR. Performed By: #### 2 4325-3, 23878-6 #### [facility] [id number] [address] [place] [address] [place] Glucose [Mass/Vol] 68 mg/dL Low 74-99 [facility] Comment on above: Order Comment: Good cheema Type: BLOOD SPECIMEN [facility]ing Facility: [facility] Address: [address] [place] [address] Result Comment: The [place] Diabetes Association (ADA) provides guidance for cutoff values for fasting glucose and random glucose. The ADA defines fasting as no caloric intake for at least 8 hours. Fasting plasma glucose results between 100 to 125 mg/dL indicate increased risk for diabetes (prediabetes). Fasting plasma glucose results greater than or equal to 126 mg/dL meet the criteria for diagnosis of diabetes. In the absence of unequivocal hyperglycemia, results should be confirmed by repeat testing. In a patient with classic symptoms of hyperglycemia or hyperglycemic crisis, random plasma glucose results greater than or equal to 200 mg/dL meet the criteria for diagnosis of diabetes. Reference: Standards of Medical Care in Diabetes 2016, [place] Diabetes Association. Diabetes Care. 2016.39(Suppl 1). Performed By: #### 2 4325-3, 85278-5 #### [facility] CLIA [id number] [address] [place] [address] [place] Potassium [Moles/Vol] 3.4 mmol/L Low 3.7-5.1 [facility] Comment on above: Order Comment: Speci men Type: BLOOD SPECIMEN [facility]ing Facility: [facility] Address: [address] [place] [address] Performed By: #### 2 4325-3, 97340-5 #### [facility] CLIA [id number] [address] [place] [address] [place] Sodium [Moles/Vol] 138 mmol/L Normal 136-144 [facility] Comment on above: Order Comment: Speci men Type: BLOOD SPECIMEN [facility]ing Facility: [facility] Address: [address] [place] [address] Performed By: #### 2 4325-3, 39241-2 #### [facility] CLIA [id number] [address] [place] [address] [place] Urea nitrogen [Mass/Vol] 12 mg/dL Normal 7-21 [facility] Comment on above: Order Comment: Speci men Type: BLOOD SPECIMEN Ordering Facility: [facility] Address: [address] [place] [address] Performed By: #### 2 4325-3, 40638-8 #### [facility] CLIA [id number] [address] [place] [address] [place] Hepatic function 2000 panelo n 12-11-2024 Albumin [Mass/Vol] 3.5 g/dL Low 3.9-4.9 [facility] Comment on above: Order Comment: Speci men Type: BLOOD SPECIMEN Ordering Facility: [facility] Address: [address] [place] [address] Performed By: #### 2 4325-3, 51779-2 #### [facility] CLIA [id number] [address] [place] [address] [place] ALP [Catalytic activity/Vol] 75 U/L Normal 34-123 [facility] Comment on above: Order Comment: Speci men Type: BLOOD SPECIMEN Ordering Facility: [facility] Address: [address] [place] [address] Performed By: #### 2 4325-3, 11039-6 #### [facility] CLIA [id number] [address] [place] [address] [place] ALT [Catalytic activity/Vol] 8 U/L Normal 7-38 [facility] Comment on above: Order Comment: Speci men Type: BLOOD SPECIMEN Ordering Facility: [facility] Address: [address] [place] [address] Performed By: #### 2 4325-3, 02715-1 #### [facility] CLIA [id number] [address] [place] [address] [place] AST [Catalytic activity/Vol] 13 U/L Normal 13-35 [facility] Comment on above: Order Comment: Speci men Type: BLOOD SPECIMEN Ordering Facility: [facility] Address: [address] [place], [place] [id number] Performed By: #### 2 4325-3, 27221-1 #### [facility] CLIA [id number] [address] [place] [address] [place] Bilirubin [Mass/Vol] 0.3 mg/dL Normal 0.2-1.3 [facility] Comment on above: Order Comment: Speci men Type: BLOOD SPECIMEN Ordering Facility: [facility] Address: [address] [place] [address] Performed By: #### 2 4325-3, 34156-0 #### [facility] CLIA [id number] [address] [place] [address] [place] Bilirubin.conjugated [Mass/Vol] 0.1 mg/dL Normal <0.3 [facility] Comment on above: Order Comment: Speci men Type: BLOOD SPECIMEN Ordering Facility: [facility] Address: [address] [place] [address] Performed By: #### 2 4325-3, 38134-8 #### [facility] CLIA [id number] [address] [place] [address] [place] Protein [Mass/Vol] 6.0 g/dL Low 6.3-8.0 [facility] Comment on above: Order Comment: Speci men Type: BLOOD SPECIMEN Ordering Facility: [facility] Address: [address] [place] [address] [place] [address] Performed By: #### 2 4325-3, 81440-2 #### [facility] CLIA [id number] [address] [place] [address] [place] (ROM) Rupture Of Membraneson 12-07-2024 ROM Negative Normal Negative [facility] Comment on above: Result Comment: Amni otic fluid not present indicates No Rupture of Membranes at time of specimen collection. Performed By: #### L 205.1000, L205.0000 #### [facility] [address] [place] [address]. [place], [place], [address] Bilirubin Test strip Ql (U)O rdered By: Lisa Chapman on 12-07-2024 Bilirubin Ql (U) Negative Negative [facility] Fibronectinon 12-08-19 25 fFIBRONECTIN Negative Normal [facility] Comment on above: Performed By: #### L 205.1000, L205.0000 #### [facility]. [place], [place], [address] fibronectinOrdered By: Lisa Chapman on 12-07-2024 Fibronectin. (Vag fld) [Mass/Vol] Negative [facility] Ketones Test strip Ql (U)Ord ered By: Lisa Chapman on 12-07-2024 Ketones Ql (U) Negative Negative [facility] Nitrite Test strip Ql (U)Ord ered By: Lisa Chapman on 12-07-2024 Nitrite Ql (U) Negative Negative [facility] Protein Test strip Ql (U)Ord ered By: Lisa Chapman on 12-07-2024 Protein Ql (U) 15 mg/dl High Negative [facility] Urinalysis, Routine (Dipstic k)on 12-07-2024 BILIRUBIN URINE Negative Normal Negative [facility] Comment on above: Order Comment: MARVIN CTOR TO SPECIFY Performed By: #### L 400.2010 #### [facility] [address] [place], [address] Clarity (U) Cloudy Normal Clear [facility] Comment on above: Order Comment: MARVIN CTOR TO SPECIFY Performed By: #### L 400.2010 #### [facility] [address] [place], [address] Color (U) Yellow Normal Yellow [facility] Comment on above: Order Comment: MARVIN CTOR TO SPECIFY Performed By: #### L 400.2010 #### [facility] [address] [place], [address] GLUCOSE, UR Normal Normal Normal [facility] Comment on above: Order Comment: MARVIN CTOR TO SPECIFY Performed By: #### L 400.2010 #### [facility] [address] [place], [address] KETONE UR Negative Normal Negative [facility] Comment on above: Order Comment: MARVIN CTOR TO SPECIFY Performed By: #### L 400.2010 #### [facility] [address] [place], [address] LEUK ESTERASE Negative Normal Negative [facility] Comment on above: Order Comment: MARVIN CTOR TO SPECIFY Performed By: #### L 400.2010 #### [facility] [address] [place], [address] Nitrite Ql (U) Negative Normal Negative [facility] Comment on above: Order Comment: MARVIN CTOR TO SPECIFY Performed By: #### L 400.2010 #### [facility] [address] [place], [address] OCCULT BLOOD-UR Negative Normal Negative [facility] Comment on above: Order Comment: MARVIN CTOR TO SPECIFY Performed By: #### L 400.2010 #### [facility] [address] [place], [address] pH UR 7.0 Normal 5.0 - 8.0 [facility] Comment on above: Order Comment: COLLE CTOR TO SPECIFY Performed By: #### L 400.2010 #### [facility] [address] [place], [address] PROT DIPSTX 15 mg/dl Abnormal Negative [facility] Comment on above: Order Comment: MARVIN CTOR TO SPECIFY Performed By: #### L 400.2010 #### [facility] [address] [place], [address] SP.GR. DIPSTX 1.015 Normal 1.002-1.030 [facility] Comment on above: Order Comment: MARVIN CTOR TO SPECIFY Performed By: #### L 400.2010 #### [facility] [address] [place], [address] UROBILI Normal Normal Normal [facility] Comment on above: Order Comment: MARVIN CTOR TO SPECIFY Performed By: #### L 400.2010 #### [facility] [address] [place], [address] Urine clarityOrdered By: Nata Chapman on 12-07-2024 Clarity (U) Cloudy Clear [facility] Urine color determinationOrd ered By: Lisa Chapman on 12-07-2024 Color (U) Yellow Yellow [facility] Urine glucose detectionOrder ed By: Lisa Chapman on 12-07-2024 Glucose Ql (U) Normal mg/dl Normal [facility] Urine leukocyte esterase det ection by dipstickOrdered By: Lisa Chapman on 12-07-2024 Leukocyte esterase Test strip Ql (U) Negative Negative [facility] Urine pHOrdered By: Lisa jimenez on 12-07-2024 pH (U) 7.0 [pH] 5.0 - 8.0 [facility] Urine specific gravity measu rementOrdered By: Lisa Chapman on 12-07-2024 Specific gravity (U) [Rel density] 1.015 1.002-1.030 [facility] Urine urobilinogen measureme ntOrdered By: Lisa Chapman on 12-07-2024 Urobilinogen Ql (U) Normal mg/dl Normal [facility] CNPNon 12-02-2024 CNPN Telephone (OBGYWM) ADRIANE CARD ([id number]) 1985 F Date Time Provider Department 12/02/24 LINDA LUTZ OBGYWMihaela During your visit today, we recorded the following information about you: Linda Gaspar RN 12/02/2024 9:51 AM Signed 26w3d Patient called with c/o LUQ pain. Sharp and shooting. Pain rate of 6 that began this morning. Feeling +FM. She's been working today and has tried drinking water, took a Pepcid ,and walking around. Patient states that she has a hx of Pre E. Denies RUQ pain, KEYS, or vision changes. Last BP in office on 11/24/24 was WNL. Inquired if patient can take her BP at home. She can. Please advise as patient was tearful on the phone. MARYAN Schneider Jennifer, MD 12/02/2024 10:30 AM Signed Symptoms are more consistent with constipation, gas or maternal discomfort from position. Have her check BP if elevated should be seen. Abeba Grullon RN 12/02/2024 10:45 AM Signed Patient notified. Abeba Grullon RN Allergies As of Date: 12/02/2024 (No Known Allergies) Date Reviewed: 12/01/2024 Reviewed by: Sanjuanita Rodarte MD - Fully Assessed Reason for Visit: OB Pain [Other] Prescriptions as of 12/02/2024 - aspirin, enteric coated (ECOTRIN LOW STRENGTH) 81 mg EC tablet Take 2 tablets by mouth once daily. - famotidine (PEPCID) 20 mg tablet Take 1 tablet by mouth two times a day. - sertraline (ZOLOFT) 50 mg tablet Take 50 mg by mouth once daily. - BANOPHEN 25 mg capsule Take 25 mg by mouth at bedtime as needed. - ondansetron (ZOFRAN) 4 mg tablet Take 1 tablet by mouth every 8 hours as needed. - PNV no.95/ferrous fum/folic ac ( ORAL) Take by mouth. Problem List As Of Date 12/02/2024 Noted Resolved Supervision of Other Normal [Z34.80] 06/30/2007 07/19/2009 THRT TRENT LABOR-ANTEPART [O47.00] 09/03/2007 11/11/2007 Unspecified Anemia [D64.9] 10/01/2007 07/19/2009 Abdominal Pain, Generalized [R10.84] 10/01/2007 07/19/2009 GERD (gastroesophageal reflux disease) [K21.9] 07/19/2009 11/17/2024 Two previous miscarriages, affecting care of mo*05/19/2015 05/10/2017 History of toxemia of [Z87.59] 05/19/2015 Tobacco smoking complicating in first*05/19/2015 05/10/2017 History of depression [Z87.59, Z86.5*05/19/2015 Patient requested diagnostic testing [Z01.89] 05/19/2015 05/10/2017 Tattoo [L81.8] 05/19/2015 Encounter for supervision of normal i*05/27/2015 05/10/2017 Malignant melanoma of torso excluding breast (H*03/26/2024 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] 04/23/2024 History of positive PPD, 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] 08/04/2024 CHERI (generalized anxiety disorder) [F41.1] 08/04/2024 History of delivery [Z87.51] 08/04/2024 History of melanoma [Z85.820] 08/04/2024 History of pre-eclampsia [Z87.59] 08/04/2024 Multigravida of advanced maternal age in first *08/04/2024 Heartburn during in first trimester (*08/04/2024 Constipation during in second trimest*09/14/2024 headache in second trimester (HCC) [O*11/24/2024 Encounter Status:Closed by DARIOABEBA WHITMORE on 12/02/24 Normal [facility] US AXILLA ONLY LTon 10-0 PACO US AXILLA ONLY LT * * *Final Report* * * DATE OF EXAM: Nov 25 2024 1:51PM WRU [id number] - PACO US AXILLA ONLY LT / PROCEDURE REASON: 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) * * * * Physician Interpretation * * * * [place] [address] #[id number] - PACO US AXILLA ONLY LT #[id number] - PACO US AXILLA ONLY RT HISTORY: 39 year-old patient presents for short term follow-up of left breast findings described on prior ultrasound. Patient states no personal history of breast cancer. COMPARISON STUDIES: The present examination has been compared to prior imaging studies dated 06/03/2018 (ultrasound) and 08/05/2024 (ultrasound). ULTRASOUND TECHNIQUE: Targeted ultrasound of the indicated area was performed. Card scale images were saved. ULTRASOUND FINDINGS: There are nonenlarged, morphologically normal lymph nodes in the bilateral axillae. No enlarged lymph nodes or lymph nodes with suspicious morphologic features are identified. Findings are stable compared to the prior exam. There are no suspicious findings in the imaged area. IMPRESSION: There are no suspicious sonographic findings in the bilateral axillary regions. Return to annual screening mammogram is recommended. Annual mammogram will be due at age 41. BI-RADS Category 2: Benign Interpreting Radiologist: Salvador Lang M.D. Electronically signed on: 11/25/2024 Brusher Hand: JESSEE Transcribe Date/Time: Nov 25 2024 1:30P Dictated by : SALVADOR LANG MD This examination was interpreted and the report reviewed and electronically signed by: SALVADOR LANG MD on Nov 25 2024 2:02PM EST [id number] Normal [facility] US AXILLA ONLY RTon 10-0 PACO US AXILLA ONLY RT * * *Final Report* * * DATE OF EXAM: Nov 25 2024 1:51PM WRU 0592 - PACO US AXILLA ONLY RT / PROCEDURE REASON: 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) * * * * Physician Interpretation * * * * [place] [address] [place] [address] #[id number] - PACO US AXILLA ONLY LT #[id number] - PACO US AXILLA ONLY RT HISTORY: 39 year-old patient presents for short term follow-up of left breast findings described on prior ultrasound. Patient states no personal history of breast cancer. COMPARISON STUDIES: The present examination has been compared to prior imaging studies dated 06/03/2018 (ultrasound) and 08/05/2024 (ultrasound). ULTRASOUND TECHNIQUE: Targeted ultrasound of the indicated area was performed. Card scale images were saved. ULTRASOUND FINDINGS: There are nonenlarged, morphologically normal lymph nodes in the bilateral axillae. No enlarged lymph nodes or lymph nodes with suspicious morphologic features are identified. Findings are stable compared to the prior exam. There are no suspicious findings in the imaged area. IMPRESSION: There are no suspicious sonographic findings in the bilateral axillary regions. Return to annual screening mammogram is recommended. Annual mammogram will be due at age 41. BI-RADS Category 2: Benign Interpreting Radiologist: Salvador Lang M.D. Electronically signed on: 11/25/2024 Brusher Hand: JESSEE Transcribe Date/Time: Nov 25 2024 1:30P Dictated by : SALVADOR LANG MD This examination was interpreted and the report reviewed and electronically signed by: SALVADOR LANG MD on Nov 25 2024 2:02PM EST [id number] N Normal [facility] Sandy 11-18-2024 CNPN Telephone ([id number]) LONDONADRIANE Bonilla ([id number]) 1985 F Date Time Provider Department 11/18/24 LINDA JAMISON [id number] During your visit today, we recorded the following information about you: Linda Jamison RN 11/18/2024 9:47 AM Signed 2nd risk assessment form submitted 11/18/2024. 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 - famotidine (PEPCID) 20 mg tablet Take 1 tablet by mouth two times a day. - sertraline (ZOLOFT) 50 mg tablet Take 50 mg by mouth once daily. - BANOPHEN 25 mg capsule Take 25 mg by mouth at bedtime as needed. - ondansetron (ZOFRAN) 4 mg tablet Take 1 tablet by mouth every 8 hours as needed. - PNV no.95/ferrous fum/folic ac ( ORAL) Take by mouth. Problem List As Of Date 11/18/2024 Noted Resolved Supervision of Other Normal [Z34.80] 06/30/2007 07/19/2009 THRT TRENT LABOR-ANTEPART [O47.00] 09/03/2007 11/11/2007 Unspecified Anemia [D64.9] 10/01/2007 07/19/2009 Abdominal Pain, Generalized [R10.84] 10/01/2007 07/19/2009 GERD (gastroesophageal reflux disease) [K21.9] 07/19/2009 11/17/2024 Two previous miscarriages, affecting care of mo*05/19/2015 05/10/2017 History of toxemia of [Z87.59] 05/19/2015 Tobacco smoking complicating in first*05/19/2015 05/10/2017 History of depression [Z87.59, Z86.5*05/19/2015 Patient requested diagnostic testing [Z01.89] 05/19/2015 05/10/2017 Tattoo [L81.8] 05/19/2015 Encounter for supervision of normal i*05/27/2015 05/10/2017 Malignant melanoma of torso excluding breast (H*03/26/2024 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 Examination level ultrasound on 10-13-2024 Indication Detailed anatomic survey Advanced maternal age, History of preeclampsia Impression The patient is referred for a detailed anatomic survey. - Single, live, intrauterine . - biometry is consistent with the established gestational age. - No malformations were visualized on a complete detailed anatomic survey. - The amniotic fluid volume is normal amount. - The placenta is anterior, fundal. - The Transabdominal cervical length measures 39.9 mm with no evidence of funneling or other dynamic changes. - Not all structural malformations can be detected by ultrasound examination. Recommendations - growth every 4 weeks starting at 28 weeks. - Additional follow up as clinically indicated. Maternal Assessment Height 170 cm Height (ft) 5 ft Height (in) 7 in Physical Exam Initial weight (lb) 135 lb Initial BMI 21.14 kg/m Maternal assessment other: 6 Para 3 REMOTE READ Method Transabdominal ultrasound examination. View: Suboptimal view: limited by position Reddy . Number of fetuses: 1 Dating LMP on: 05/23/2024 GA by LMP 20 w + 3 d MORENO by LMP: 02/27/2025 GA by prior assessment 19 w + 2 d MORENO by prior assessment: 03/07/2025 Ultrasound examination on: 10/13/2024 GA by U/S based upon: AC, BPD, Femur, HC GA by U/S 20 w + 1 d MORENO by U/S: 03/01/2025 Assigned: based on stated MORENO, selected on 10/13/2024 Assigned GA 19 w + 2 d Assigned MORENO: 03/07/2025 General Evaluation Cardiac activity present. FHR 155 bpm. movements: present. Presentation: cephalic Placenta: Placental site: anterior, fundal Umbilical cord: Cord vessels: 3 vessel cord Amniotic fluid: Amount of AF: normal amount. MVP 4.0 cm Growth Overview Exam date GA BPD (mm) HC (mm) AC (mm) FL (mm) HL (mm) EFW (g) 10/13/2024 19w 2d 46.7 83% 174.3 71% 159.3 92% 30.5 71% 30.3 76% 342 91% Biometry Standard BPD 46.7 mm 20w 1d 83% Hadlock OFD 61.4 mm 19w 6d 91% Nicolaides HC 174.3 mm 20w 0d 71% Gaby Cerebellum tr 20.3 mm 19w 3d 60% Hill Nuchal fold 3.5 mm AC 159.3 mm 21w 0d 92% Hadlock Femur 30.5 mm 19w 4d 71% Gaby Humerus 30.3 mm 20w 0d 76% Gaby EFW 342 g 20w 1d 91% Hadlock EFW (lb) 0 lb EFW (oz) 12 oz EFW by: Hadlock (HC-AC-FL) Extended Plastics Fabricator Or Welder 5.8 mm CM 5.5 mm 72% Nicolaides Extremities / Bony Struc FL / HC 0.17 11% Hadlock Other Structures FHR 155 bpm Anatomy Cranium: normal Lateral ventricles: normal Choroid plexus: normal Midline falx: normal Cavum septi pellucidi: normal Cerebellum: normal Cisterna magna: normal Head / Neck Vermis: normal Neck: normal Nuchal fold: normal Lips: normal Profile: normal Nose: normal Face Maxilla: normal Mandible: normal Orbits: normal Lens: normal 4-chamber view: normal RVOT view: normal LVOT view: normal 3-vessel view: normal 0-byysnz-lmhpqgn view: normal Heart / Thorax Situs: situs solitus (normal) Aortic arch view: normal SVC: normal IVC: normal Cardiac axis: normal Rt lung: normal Lt lung: normal Diaphragm: normal Cord insertion: normal Stomach: normal Kidneys: normal Bladder: normal Genitals: normal Abdomen Abdom. wall: normal Cervical spine: normal Thoracic spine: normal Lumbar spine: normal Sacral spine: normal Arms: normal Legs: normal Rt upper arm: normal Rt forearm: normal Rt hand: normal Rt fingers: normal Lt upper arm: normal Lt forearm: normal Lt hand: normal Lt fingers: normal Rt upper leg: normal Rt lower leg: normal Rt foot: normal Lt upper leg: normal Lt lower leg: normal Lt foot: normal sex: female Wants to know sex: yes Maternal Structures Uterus / Cervix Uterus: Visualized Cervix: Visualized Approach: Transabdominal Cervical length 39.9 mm Other: Patient declined transvaginal ultrasound for cervical length. Ovaries / Tubes / Adnexa Rt ovary: Visualized Lt ovary: Not visualized Performed By: Nika Torres RDMS, RVT Read By: Unique Mejia M.D. MATERNAL MEDICINE [facility] Radiology Study observation (narrative) [facility] Sandy 10-05-2024 BANNER Telephone (GMINE) ADRIANE CARD ([id number]) 1985 F Date Time Provider Department 10/05/24 RAMYA RINALDI During your visit today, we recorded the following information about you: Esperanza Sanabria 10/05/2024 3:23 PM Signed Received call from [email or web address] regarding PA for genetic testing. Confirmed patient's name and , note that patient's last name on genetic testing/PA is Bailey. Deisy explained that they were calling in reference to the patient's genetic testing. Deisy stated that they were unable to process the patient's PA as a privious PA had been submitted and denied in May 2024. [employer] stated that the denial could be appealed, denial number [id number]. Reason for denial was listed as no medical necessity. Informed Deisy that I would update the ordering provider. Esperanza Sanabria Genetic Counselor Library Aide Allergies As of Date: 10/05/2024 (No Known Allergies) Date Reviewed: 09/14/2024 Reviewed by: Raffy Kate LPN - Fully Assessed Prescriptions as of 10/05/2024 - sertraline (ZOLOFT) 50 mg tablet Take 50 mg by mouth once daily. - BANOPHEN 25 mg capsule Take 25 mg by mouth at bedtime as needed. - ondansetron (ZOFRAN) 4 mg tablet Take 1 tablet by mouth every 8 hours as needed. - aspirin, enteric coated (ECOTRIN LOW STRENGTH) 81 mg EC tablet Take 1 tablet by mouth once daily. - famotidine (PEPCID) 20 mg tablet Take 1 tablet by mouth two times a day. - PNV no.95/ferrous fum/folic ac ( ORAL) Take by mouth. Problem List As Of Date 10/05/2024 Noted Resolved Supervision of Other Normal [Z34.80] 06/30/2007 07/19/2009 THRT TRENT LABOR-ANTEPART [O47.00] 09/03/2007 11/11/2007 Unspecified Anemia [D64.9] 10/01/2007 07/19/2009 Abdominal Pain, Generalized [R10.84] 10/01/2007 07/19/2009 GERD (Gastroesophageal Reflux Disease) [K21.9] 07/19/2009 Two previous miscarriages, affecting care of mo*05/19/2015 05/10/2017 History of toxemia of [Z87.59] 05/19/2015 Tobacco smoking complicating in first*05/19/2015 05/10/2017 History of depression [Z87.59, Z86.5*05/19/2015 Patient requested diagnostic testing [Z01.89] 05/19/2015 05/10/2017 Tattoo [L81.8] 05/19/2015 Encounter for supervision of normal i*05/27/2015 05/10/2017 Malignant melanoma of torso excluding breast (H*03/26/2024 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] 04/23/2024 History of positive PPD, 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] 08/04/2024 CHERI (generalized anxiety disorder) [F41.1] 08/04/2024 History of delivery [Z87.51] 08/04/2024 History of melanoma [Z85.820] 08/04/2024 History of pre-eclampsia [Z87.59] 08/04/2024 Encounter for supervision of high risk pregnanc*08/04/2024 Multigravida of advanced maternal age in first *08/04/2024 Heartburn during in first trimester (*08/04/2024 Constipation during in second trimest*09/14/2024 Encounter Status:Closed by ESPERANZA SANABRIA on 10/05/24 [facility] 09-30-2024 CNPN Telephone (OBGYWM) ADRIANE CARD ([id number]) 1985 F Date Time Provider Department 09/30/24 UNIQUE MEJIA OBGYWM During your visit today, we recorded the following information about you: Jason Marquez RN 09/30/2024 2:19 PM Signed OB delivery note from 2005 requested from [facility] for upcoming [facility] appointment. I did call medical records and it is available Jason Marquez RN 09/30/2024 2:30 PM Signed received Allergies As of Date: 09/30/2024 (No Known Allergies) Date Reviewed: 09/14/2024 Reviewed by: Raffy Kate LPN - Fully Assessed Reason for Visit: Request Outside Medical Records [6404] Prescriptions as of 09/30/2024 - sertraline (ZOLOFT) 50 mg tablet Take 50 mg by mouth once daily. - BANOPHEN 25 mg capsule Take 25 mg by mouth at bedtime as needed. - ondansetron (ZOFRAN) 4 mg tablet Take 1 tablet by mouth every 8 hours as needed. - aspirin, enteric coated (ECOTRIN LOW STRENGTH) 81 mg EC tablet Take 1 tablet by mouth once daily. - famotidine (PEPCID) 20 mg tablet Take 1 tablet by mouth two times a day. - PNV no.95/ferrous fum/folic ac ( ORAL) Take by mouth. Problem List As Of Date 09/30/2024 Noted Resolved Supervision of Other Normal [Z34.80] 06/30/2007 07/19/2009 [facility]RT TRENT LABOR-ANTEPART [O47.00] 09/03/2007 11/11/2007 Unspecified Anemia [D64.9] 10/01/2007 07/19/2009 Abdominal Pain, Generalized [R10.84] 10/01/2007 07/19/2009 GERD (Gastroesophageal Reflux Disease) [K21.9] 07/19/2009 Two previous miscarriages, affecting care of mo*05/19/2015 05/10/2017 History of toxemia of [Z87.59] 05/19/2015 Tobacco smoking complicating in first*05/19/2015 05/10/2017 History of depression [Z87.59, Z86.5*05/19/2015 Patient requested diagnostic testing [Z01.89] 05/19/2015 05/10/2017 Tattoo [L81.8] 05/19/2015 Encounter for supervision of normal i*05/27/2015 05/10/2017 Malignant melanoma of torso excluding breast (H*03/26/2024 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] 04/23/2024 History of positive PPD, 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] 08/04/2024 CHERI (generalized anxiety disorder) [F41.1] 08/04/2024 History of delivery [Z87.51] 08/04/2024 History of melanoma [Z85.820] 08/04/2024 History of pre-eclampsia [Z87.59] 08/04/2024 Encounter for supervision of high risk pregnanc*08/04/2024 Multigravida of advanced maternal age in first *08/04/2024 Heartburn during in first trimester (*08/04/2024 Constipation during in second trimest*09/14/2024 Encounter Status:Closed by JASON MARQUEZ on 09/30/24 [facility] Sandy 09-21-2024 CNPN Telephone ([employer]) LONDONADRIANE ([id number]) 1985 F Date Time Provider Department 09/21/24 DMITRY GUTIÉRREZ During your visit today, we recorded the following information about you: Dmitry Gutiérrez LGC 09/21/2024 12:52 PM Signed Tried to call to explain the following: I periodically check to make sure my previous genetic test orders have gone through. When I checked for this patient, I could not find their order in [employer] portal. [employer] also could not find their order, and our [employer] team was unable to see what happened since our interface messages only go back 3 months. Therefore, Ramya Rinaldi placed a new order for testing and I sent a message to the patient via [employer] to inform her of this technical error. Shortly after I sent the [employer] message, Ramya found that the patient was showing up with multiple RQ numbers in [employer] portal and we came to the conclusion that I had been searching for the order using the patient's current last name, but when I had placed the original genetic testing order, the patient's last name was different. I tried to call the patient to let them know this and ask if they still wanted to proceed with genetic testing or not. I will send a [employer] message to follow up instead since she was unavailable and I was unable to leave a voicemail since her mailbox was full. Dmitry Gutiérrez Allergies As of Date: 09/21/2024 (No Known Allergies) Date Reviewed: 09/14/2024 Reviewed by: Raffy Kate LPN - Fully Assessed Reason for Visit: genetic testing update [Other] Prescriptions as of 09/21/2024 - sertraline (ZOLOFT) 50 mg tablet Take 50 mg by mouth once daily. - BANOPHEN 25 mg capsule Take 25 mg by mouth at bedtime as needed. - ondansetron (ZOFRAN) 4 mg tablet Take 1 tablet by mouth every 8 hours as needed. - aspirin, enteric coated (ECOTRIN LOW STRENGTH) 81 mg EC tablet Take 1 tablet by mouth once daily. - famotidine (PEPCID) 20 mg tablet Take 1 tablet by mouth two times a day. - PNV no.95/ferrous fum/folic ac ( ORAL) Take by mouth. Problem List As Of Date 09/21/2024 Noted Resolved Supervision of Other Normal [Z34.80] 06/30/2007 07/19/2009 THRT TRENT LABOR-ANTEPART [O47.00] 09/03/2007 11/11/2007 Unspecified Anemia [D64.9] 10/01/2007 07/19/2009 Abdominal Pain, Generalized [R10.84] 10/01/2007 07/19/2009 GERD (Gastroesophageal Reflux Disease) [K21.9] 07/19/2009 Two previous miscarriages, affecting care of mo*05/19/2015 05/10/2017 History of toxemia of [Z87.59] 05/19/2015 Tobacco smoking complicating in first*05/19/2015 05/10/2017 History of depression [Z87.59, Z86.5*05/19/2015 Patient requested diagnostic testing [Z01.89] 05/19/2015 05/10/2017 Tattoo [L81.8] 05/19/2015 Encounter for supervision of normal i*05/27/2015 05/10/2017 Malignant melanoma of torso excluding breast (H*03/26/2024 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 ED Prov Noteon 09-10-2024 ED Prov Note ED PROVIDER NOTE [facility] EMERGENCY [facility] NAME: Adriane Card AGE: 39 y.o. : 1985 VISIT DATE: 09/10/2024 CSN: [id number] PCP: No, Physician Chief Complaint Patient presents with Constipation Chief complaint constipation History of present illness 39-year-old female who has not had a bowel movement in a week and a half. She has used sasx-ufu-spogbnf enema mag citrate and a suppository still not has had good bowel movement. And is here for assessment she denies any localizing pain or vomiting or fever or chills she is keeping liquids down she has been producing urine as well her blood pressure 114/77 pulse 67 respirate 16 temp 98, she denies any pelvic cramping or vaginal bleeding Past Medical History: Diagnosis Date Anxiety History of pre-eclampsia Melanoma (HCC) Past Surgical History: Procedure Laterality Date LYMPH NODE BIOPSY AND MELANOMA REMOVAL ON BACK; MAR 2024 Family History Problem Relation Age of Onset Breast cancer Maternal Grandmother Social History [1] Previous Medications Medication Sig aspirin 81 MG EC tablet Take 1 (one) tablet (81 mg total) by mouth daily . famotidine (PEPCID) 20 MG tablet Take 1 (one) tablet (20 mg total) by mouth 2 (two) times a day . sertraline (ZOLOFT) 50 MG tablet Take 1 (one) tablet (50 mg total) by mouth nightly . ondansetron (ZOFRAN) 4 MG tablet Take 1 (one) tablet (4 mg total) by mouth every 8 (eight) hours as needed . vitamin with Ca-Iron-FA 27-1 mg Tab Take 1 (one) tablet by mouth daily . Allergies[2] Review of Systems All other systems reviewed and are negative. Patient Vitals for the past 24 hrs: BP Temp Temp src Pulse Resp SpO2 Height Weight 09/10/242031 114/77 98 degrees F (36.7 degrees C) Temporal 67 16 98 % 5' 6 61.2 kg (135 lb) Physical Exam Vitals and nursing note reviewed. Exam conducted with a customs and border protection inspector present. Constitutional: Appearance: Normal appearance. She is normal weight. HENT: Head: Normocephalic and atraumatic. Nose: Nose normal. Mouth/Throat: Mouth: Mucous membranes are dry. Eyes: Extraocular Movements: Extraocular movements intact. Pupils: Pupils are equal, round, and reactive to light. Cardiovascular: Rate and Rhythm: Normal rate and regular rhythm. Musculoskeletal: Cervical back: Normal range of motion and neck supple. Pulmonary: Effort: Pulmonary effort is normal. Breath sounds: Normal breath sounds. Abdominal: General: Abdomen is flat. Bowel sounds are normal. There is no distension. Palpations: Abdomen is soft. Tenderness: There is no abdominal tenderness. There is no right CVA tenderness, left CVA tenderness, guarding or rebound. Hernia: No hernia is present. Skin: General: Skin is warm. Capillary Refill: Capillary refill takes less than 2 seconds. Neurological: Mental Status: She is alert. Laboratory & Radiographic Imaging (if done): No results found for this visit on 09/10/24. No orders to display Procedures Medical Decision Making Differential diagnosis Constipation Soapsuds were given Amount and/or Complexity of Data Reviewed Discussion of management or test interpretation with external provider(s): Relief was experienced and then discharged home . . Clinical Impression: 1. Constipation, unspecified constipation type ED Disposition ED Disposition Discharge Condition Stable Comment Adriane Card discharged to home/self care in stable condition. Follow-up Information 1. Dayan Galindo MD. Specialty: Family Medicine [address] [place] [address] Contact information for after-discharge care Follow-up information has not been specified. [1] Social History Socioeconomic History Marital status: Single Tobacco Use Smoking status: Former Current packs/day: 0.50 Types: Cigarettes Smokeless tobacco: Never Vaping Use Vaping status: Never Used Substance and Sexual Activity Alcohol use: Not Currently Comment: occasional Drug use: Never Sexual activity: Yes Partners: Male [2] No Known Allergies Beny Alatorre MD 09/11/24 0651 AUTHENTICATED BY BENY ALATORRE, ON 09/11/2024 06:51:59 Normal [facility] Examination level ultrasound on 08-26-2024 Indication First trimester anatomic survey Advanced maternal age Impression The patient is referred for a first trimester anatomy scan including nuchal translucency measurement as clinically indicated. - Single, live, intrauterine . - [place] rump length measurement is consistent with the established gestational age. - A qualitative screen of the nuchal translucency and other anatomic structures was unremarkable on an incomplete first trimester anatomic assessment. - Not all structural malformations can be detected by ultrasound examination. Maternal Structures: Right Ovary: Size 25 mm x 22 mm x 20 mm Left Ovary: Size 27 mm x 24 mm x 28 mm Recommendations - A standard anatomic survey at 16 weeks can be offered and a detailed exam at 20 weeks is recommended for increased risk. Maternal Assessment Height 170 cm Height (ft) 5 ft Height (in) 7 in Physical Exam Initial weight (lb) 135 lb Initial BMI 21.14 kg/m Maternal assessment other: 6 Para 3 REMOTE READ Method Transabdominal ultrasound examination Reddy . Number of fetuses: 1 Dating LMP on: 05/23/2024 GA by LMP 13 w + 4 d MORENO by LMP: 02/27/2025 GA by prior assessment 12 w + 3 d MORENO by prior assessment: 03/07/2025 Ultrasound examination on: 08/26/2024 GA by U/S based upon: CRL GA by U/S 12 w + 5 d MORENO by U/S: 03/05/2025 Assigned: based on ultrasound (CRL), selected on 07/16/2024 Assigned GA 12 w + 3 d Assigned MORENO: 03/07/2025 General Evaluation Cardiac activity present Placenta: anterior Cord vessels: 3 vessel cord Amniotic fluid: normal amount Biometry Standard FHR 159 bpm CRL 63.0 mm 12w 5d 60% [place] First Trimester Anatomy Calvarium: normal Falx cerebri: normal Choroid plexus: normal Profile: normal Nasal bone: normal Retronasal triangle: normal Maxilla: normal Mandible: normal Nuchal translucency: Unremarkable Situs: normal Cardiac position: normal Cardiac axis: normal 4-chamber view: normal 4-chamber view with color: normal 5-wdycfj-ssearou view: normal Abdominal cord insertion: normal Stomach: normal Kidneys: normal Bladder: normal Color doppler of perivesical umbilical arteries: normal Vertebral alignment: normal Arms: normal Hands: normal Legs: normal Feet: normal Maternal Structures Uterus / Cervix Uterus: Visualized Uterus length 118 mm Uterus width 105 mm Uterus height 95 mm Uterus Vol 617.7 cm Ovaries / Tubes / Adnexa Rt ovary: Visualized Rt ovary D1 25 mm Rt ovary D2 22 mm Rt ovary D3 20 mm Rt ovary Vol 5.8 cm Lt ovary: Visualized Lt ovary D1 27 mm Lt ovary D2 24 mm Lt ovary D3 28 mm Lt ovary Vol 9.5 cm Performed By: Nika Torres RDMS, RVT Read By: Aura Junior M.D. MATERNAL MEDICINE [facility] Radiology Study observation (narrative) [facility] CBC W Auto Differential pane l (Bld)on 08-19-2024 Basophils (Bld) [#/Vol] 0.04 10*3/uL Normal <0.11 [facility] Comment on above: Order Comment: Speci men Type: BLOOD SPECIMEN Ordering Facility: [facility] Address: [address] [place] [address] Performed By: #### 2 4325-3, 44212-9 #### [facility] CLIA [id number] [address] [place] [address] [place] Basophils/100 WBC (Bld) 0.5 % Normal [facility] Comment on above: Order Comment: Speci men Type: BLOOD SPECIMEN Ordering Facility: [facility] Address: [address] [place] [address] Performed By: #### 2 4325-3, 06573-8 #### [facility] CLIA [id number] [address] [place] [address] [place] Differential cell count method Nom (Bld) Auto Normal [facility] Comment on above: Order Comment: Speci men Type: BLOOD SPECIMEN Ordering Facility: [facility] Address: [address] [place] [address] Performed By: #### 2 4325-3, 79232-6 #### [facility] CLIA [id number] [address] [place] [address] [place] Eosinophils (Bld) [#/Vol] 0.09 10*3/uL Normal <0.46 [facility] Comment on above: Order Comment: Speci men Type: BLOOD SPECIMEN Ordering Facility: [facility] Address: [address] [place] [address] Performed By: #### 2 4325-3, 59648-7 #### [facility] CLIA [id number] [address] [place] [address] [place] Eosinophils/100 WBC (Bld) 1.2 % Normal [facility] Comment on above: Order Comment: Speci men Type: BLOOD SPECIMEN Ordering Facility: [facility] Address: [address] [place] [address] Performed By: #### 2 4325-3, 80305-1 #### [facility] CLIA [id number] [address] [place] [address] [place] Erythrocyte distribution width (RBC) [Ratio] 14.5 % Normal 11.5-15.0 [facility] Comment on above: Order Comment: Speci men Type: BLOOD SPECIMEN Ordering Facility: [facility] Address: [address] [place] [address] Performed By: #### 2 4325-3, 36314-8 #### [facility] CLIA [id number] [address] [place] [address] [place] Hematocrit (Bld) [Volume fraction] 37.9 % Normal 36.0-46.0 [facility] Comment on above: Order Comment: Speci men Type: BLOOD SPECIMEN Ordering Facility: [facility] Address: [address] [place] [address] Performed By: #### 2 4325-3, 70336-1 #### [facility] CLIA [id number] [address] [place] [address] [place] Hemoglobin (Bld) [Mass/Vol] 12.9 g/dL Normal 11.5-15.5 [facility] Comment on above: Order Comment: Speci men Type: BLOOD SPECIMEN Ordering Facility: [facility] Address: [address] [place] [address] Performed By: #### 2 4325-3, 70396-0 #### [facility] CLIA [id number] [address] [place] [address] [place] Immature granulocytes (Bld) [#/Vol] 0.03 10*3/uL Normal <0.10 [facility] Comment on above: Order Comment: Speci men Type: BLOOD SPECIMEN Ordering Facility: [facility] Address: [address] [place] [address] Performed By: #### 2 4325-3, 77780-3 #### [facility] CLIA [id number] [address] [place] [address] [place] Immature granulocytes/100 WBC (Bld) 0.4 % Normal [facility] Comment on above: Order Comment: Speci men Type: BLOOD SPECIMEN Ordering Facility: [facility] Address: [address] [place] [address] Performed By: #### 2 4325-3, 95106-3 #### [facility] CLIA [id number] [address] [place] [address] [place] Lymphocytes (Bld) [#/Vol] 2.68 10*3/uL Normal 1.00-4.00 [facility] Comment on above: Order Comment: Speci men Type: BLOOD SPECIMEN Ordering Facility: [facility] Address: [address] [place] [address] Performed By: #### 2 4325-3, 20078-9 #### [facility] CLIA [id number] [address] [place] [address] [place] Lymphocytes/100 WBC (Bld) 36.3 % Normal [facility] Comment on above: Order Comment: Speci men Type: BLOOD SPECIMEN Ordering Facility: [facility] Address: [address] [place] [address] Performed By: #### 2 4325-3, 33176-8 #### [facility] CLIA [id number] [address] [place] [address] STATES [facility] MCH (RBC) [Entitic mass] 29.2 pg Normal 26.0-34.0 [facility] Comment on above: Order Comment: Speci men Type: BLOOD SPECIMEN Ordering Facility: [facility] Address: [address] [place], [place] [id number] Performed By: #### 2 4324-3, 43593-7 #### [facility] CLIA [id number] [address] [place] [address] [place] MCHC (RBC) [Mass/Vol] 34.0 g/dL Normal 30.5-36.0 [facility] Comment on above: Order Comment: Speci men Type: BLOOD SPECIMEN Ordering Facility: [facility] Address: [address] [place] [address] Performed By: #### 2 3, 75760-8 #### [facility] CLIA [id number] [address] [place] [address] [place] MCV (RBC) [Entitic vol] 85.7 fL Normal 80.0-100.0 [facility] Comment on above: Order Comment: Speci men Type: BLOOD SPECIMEN Ordering Facility: [facility] Address: [address] [place] [address] Performed By: #### 2 3, 87059-3 #### [facility] CLIA [id number] [address] [place] [address] [place] Monocytes (Bld) [#/Vol] 0.48 10*3/uL Normal <0.87 [facility] Comment on above: Order Comment: Speci men Type: BLOOD SPECIMEN Ordering Facility: [facility] Address: [address] [place] [address] Performed By: #### 2 4324-3, 70882-1 #### [facility] CLIA [id number] [address] [place] [address] [place] Monocytes/100 WBC (Bld) 6.5 % Normal [facility] Comment on above: Order Comment: Speci men Type: BLOOD SPECIMEN Ordering Facility: [facility] Address: [address] [place] [address] Performed By: #### 2 4325-3, 22303-9 #### [facility] CLIA [id number] [address] [place] [address] [place] Neutrophils (Bld) [#/Vol] 4.06 10*3/uL Normal 1.45-7.50 [facility] Comment on above: Order Comment: Speci men Type: BLOOD SPECIMEN Ordering Facility: [facility] Address: [address] [place] [address] Performed By: #### 2 4325-3, 79596-8 #### [facility] CLIA [id number] [address] [place] [address] [place] Neutrophils/100 WBC (Bld) 55.1 % Normal [facility] Comment on above: Order Comment: Speci men Type: BLOOD SPECIMEN Ordering Facility: [facility] Address: [address] [place] [address] Performed By: #### 2 4325-3, 53343-9 #### [facility] CLIA [id number] [address] [place] [address] [place] Nucleated RBC (Bld) [#/Vol] 10*3/uL Normal <0.01 [facility] Comment on above: Order Comment: Speci men Type: BLOOD SPECIMEN Ordering Facility: [facility] Address: [address] [place] [address] Performed By: #### 2 4325-3, 24548-0 #### [facility] CLIA [id number] [address] [place] [address] [place] Nucleated RBC/100 WBC (Bld) [Ratio] 0.0 /[address] [facility] Comment on above: Order Comment: Speci men Type: BLOOD SPECIMEN Ordering Facility: [facility] Address: [address] [place] [address] Performed By: #### 2 4325-3, 02079-2 #### [facility] CLIA [id number] [address] [place] [address] [place] Platelet mean volume (Bld) [Entitic vol] 8.3 fL Low 9.0-12.7 [facility] Comment on above: Order Comment: Speci men Type: BLOOD SPECIMEN Ordering Facility: [facility] Address: [address] [place] [address] Performed By: #### 2 4325-3, 04692-1 #### [facility] CLIA [id number] [address] [place] [address] [place] Platelets (Bld) [#/Vol] 280 10*3/uL Normal 150-400 [facility] Comment on above: Order Comment: Speci men Type: BLOOD SPECIMEN Ordering Facility: [facility] Address: [address] [place] [address] Performed By: #### 2 4325-3, 48951-6 #### [facility] CLIA [id number] [address] [place] [address] [place] RBC (Bld) [#/Vol] 4.42 10*6/uL Normal 3.90-5.20 [facility] Comment on above: Order Comment: Speci men Type: BLOOD SPECIMEN Ordering Facility: [facility] Address: [address] [place] [address] Performed By: #### 2 4325-3, 79406-9 #### [facility] CLIA [id number] [address] [place] [address] [place] WBC (Bld) [#/Vol] 7.38 10*3/uL Normal 3.70-11.00 [facility] Comment on above: Order Comment: Speci men Type: BLOOD SPECIMEN Ordering Facility: [facility] Address: [address] [place] [address] Performed By: #### 2 4325-3, 22783-9 #### [facility] CLIA [id number] [address] [place] [address] [place] HBV surface Ag Ser Qlon 07-27 HBV surface Ag Ql (S) Negative Normal Negative [facility] Comment on above: Order Comment: Speci men Type: BLOOD SPECIMEN Ordering Facility: [facility] Address: [address] [place] [address] Performed By: #### 7 3752-8, 5195-3, 20392-8 #### [facility] CLIA [id number] [address] [place] [address] [place] HCV Ab Ser Qlon 08-19-2024 HCV Ab Ql (S) Negative Normal Negative [facility] Comment on above: Order Comment: Speci men Type: BLOOD SPECIMEN Ordering Facility: [facility] Address: [address] [place] [address] Result Comment: The result suggests no evidence of infection with Hepatitis C virus. Should recent infection be suspected, repeat testing may be considered 4-6 weeks after this draw. Performed By: #### 7 3752-8, 5195-3, 48020-9 #### [facility] CLIA [id number] [address] [place] [address] [place] HIV 1+2 Ab IA Qlon HIV 1 and 2 Ab IA.rapid Nom (S/P/Bld) Normal [facility] Comment on above: Order Comment: Speci men Type: BLOOD SPECIMEN Ordering Facility: [facility] Address: [address] [place] [address] Result Comment: Test not indicated. Performed By: #### 7 3752-8, 5195-3, 77640-0 #### [facility] CLIA [id number] [address] [place] [address] [place] HIV 1+2 Ab+HIV1 p24 Ag IA Ql Non-Reactive Normal Nonreactive [facility] Comment on above: Order Comment: Speci men Type: BLOOD SPECIMEN Ordering Facility: [facility] Address: [address] [place] [address] Performed By: #### 7 3752-8, 5195-3, 13018-8 #### [facility] CLIA [id number] [address] [place] [address] [place] HIV immunoassay testing algorithm interpretation (S/P/Bld) [Interp] Normal [facility] Comment on above: Order Comment: Speci men Type: BLOOD SPECIMEN Ordering Facility: [facility] Address: [address] [place] [address] Result Comment: No e vidence of HIV-1 or HIV-2 infection. Should recent infection be suspected, repeat testing may be considered 2-3 weeks after this draw. [place] Rev. Code 3701.243(E): This information has been disclosed to you from confidential records protected from disclosure by state law. You shall make no further disclosure of this information without the specific, written, and informed release of the individual to whom it pertains or as otherwise permitted by state law. A general authorization for the release of medical or other information is not sufficient for the purpose of the release of HIV test results or diagnoses. Performed By: #### 7 3752-8, 5195-3, 14975-1 #### [facility] CLIA [id number] [address] [place] [address] [place] HbA1c (Bld)on 08-19-2024 Average glucose Estimated from glycated hemoglobin (Bld) [Mass/Vol] 103 mg/dL Normal [facility] Comment on above: Order Comment: Speci men Type: BLOOD SPECIMEN [facility]ing Facility: [facility] Address: [address] [place] [address] Result Comment: eAG: (Estimated average glucose) is a calculated value from HgbA1c and is international sales representative of the average blood glucose level in the last 2-3 month period. Performed By: #### 7 3752-8, 5195-3, 97495-2 #### [facility] CLIA [id number] [address] [place] [address] [place] HbA1c (Bld) [Mass fraction] 5.2 % Normal 4.3-5.6 [facility] Comment on above: Order Comment: Good cheema Type: BLOOD SPECIMEN [facility]ing Facility: [facility] Address: [address] [place] [address] Result Comment: Amer [place] Diabetes Association guidelines indicate that patients with HgbA1c in the range 5.7-6.4% are at increased risk for development of diabetes, and intervention by lifestyle modification may be beneficial. HgbA1c greater or equal to 6.5% is considered diagnostic of diabetes. Performed By: #### 7 3752-8, 5195-3, 31185-1 #### [facility] CLIA [id number] [address] [place] [address] [place] RUBELLA IGG ANTIBODYon 08-19 RUBELLA IGG AB, QUAL Positive Normal Positive [facility] Comment on above: Order Comment: Good cheema Type: BLOOD SPECIMEN [facility] Facility: [facility] Address: [address] [place] [address] Result Comment: The result suggests recent or past exposure to Rubella virus or history of Rubella vaccination. Positive result may also be seen due to presence of passively-transferred antibodies. Please correlate with patient's history. Performed By: #### 7 3752-8, 5195-3, 22584-5 #### [facility] CLIA [id number] [address] [place] [address] [place] Reagin and Treponema pallidu m IgG and IgM [Interp]on 08-19-2024 T. pallidum IgG+IgM IA Ql (S) Non-Reactive Normal Nonreactive [facility] Comment on above: Order Comment: Good cheema Type: BLOOD SPECIMEN Ordering Facility: [facility] Address: [address] [place] [address] Performed By: #### 7 3752-8, 5-3, 19094-4 #### [facility] CLIA [id number] [address] [place] [address] [place] Reagin+T pallidum IgG+IgM Se rPl-Impon 08-19-2024 Reagin and Treponema pallidum IgG and IgM [Interp] Cannot exclude recent Treponemal infection if specimen collected within 7-10 days after appearance of suspect lesions or 2-3 weeks after an exposure. Clinical correlation is required. Normal [facility] Comment on above: Order Comment: Speci men Type: BLOOD SPECIMEN [facility]ing Facility: [facility] Address: [address] [place] [address] Performed By: #### 7 3752-8, 5195-3, 35893-6 #### [facility] CLIA [id number] [address] [place] [address] [place] TYPE + SCREEN PRENATALon ABO A Normal [facility] Comment on above: Order Comment: Speci men Type: BLOOD SPECIMEN [facility]ing Facility: [facility] Address: [address] [place] [address] Performed By: #### 7 3752-8, 5-3, 99777-2 #### [facility] CLIA [id number] [address] [place] [address] [place] Rh Nom (Bld) Positive Normal [facility] Comment on above: Order Comment: Speci men Type: BLOOD SPECIMEN [facility]ing Facility: [facility] Address: [address] [place] [address] Performed By: #### 7 3752-8, 5-3, 87834-7 #### [facility] CLIA [id number] [address] [place] [address] [place] TYPE AND SCREEN EXPIRATION 08/22/2024 23:[address] [facility] Comment on above: Order Comment: Speci men Type: BLOOD SPECIMEN [facility]ing Facility: [facility] Address: [address] [place] [address] Performed By: #### 7 3752-8, 5195-3, 42220-0 #### [facility] CLIA [id number] [address] [place], [place] [address] [address] [place] [id number] PLUSon 08-10-2024 Cell-free DNA./Cell-free DNA.total Dosage of chromosome-specific cfDNA (cfDNA) [Molar fraction] 17% Normal [facility] Comment on above: Order Comment: Speci men Type: BLOOD SPECIMEN [facility]ing Facility: [facility] Address: [address] [place] [address] Performed By: #### 2 4325-3, 35343-6 #### [facility] CLIA [id number] [address] [place] [address] [place] Chr 13+18+21+X+Y aneuploidy Dosage of chromosome-specific cfDNA Ql (cfDNA) Negative Normal [facility] Comment on above: Order Comment: Speci men Type: BLOOD SPECIMEN [facility]ing Facility: [facility] Address: [address] [place] [address] Performed By: #### 2 4325-3, 66468-4 #### [facility] CLIA [id number] [address] [place] [address] [place] Chr 21 trisomy Dosage of chromosome-specific cfDNA Ql (cfDNA) Negative Normal [facility] Comment on above: Order Comment: Speci men Type: BLOOD SPECIMEN [facility]ing Facility: [facility] Address: [address] [place] [address] Performed By: #### 2 4325-3, 63554-7 #### [facility] CLIA [id number] [address] [place] [address] [place] Chr X and Y aneuploidy risk Sequencing Ql (cfDNA) [Interp] Not detected Normal [facility] Comment on above: Order Comment: Speci men Type: BLOOD SPECIMEN [facility]ing Facility: [facility] Address: [address] [place] [address] Result Comment: Not Detected Not Detected Performed By: #### 2 5-3, 62253-2 #### [facility] CLIA [id number] [address] [place] [address] [place] Citation Jamarcus (Reference lab test) Comment Normal [facility] Comment on above: Order Comment: Speci men Type: BLOOD SPECIMEN [facility]ing Facility: [facility] Address: [address] [place] [address] Result Comment: 1. P jazmine MONGE, et al. Yasmin Med. 2012;14(3):296-305. 2. Magda MANDUJANO, et al. Prenat Diag. 2013;33(6):591-597. 3. Justo C, et al. Clin Chem. 2015 Apr;61(4):608-616. 4. Juan Jose MONGE, et al. Yasmin Med. 2011;13(11):913-920. 5. ACOG/SMFM Practice Bulletin No. 226, Nov 2019. Performed By: #### 2 3, 33927-7 #### [facility] CLIA [id number] [address] [place] [address] Gestational age Estimated from conception date Reddy Normal [facility] Comment on above: Order Comment: Speci men Type: BLOOD SPECIMEN [facility]ing Facility: [facility] Address: [address] [place] [address] Performed By: #### 2 4324-3, 84939-7 #### [facility] CLIA [id number] [address] [place] [address] [place] GESTATIONALAGE AGE > OR = 9W Yes Normal [facility] Comment on above: Order Comment: Speci men Type: BLOOD SPECIMEN [facility]ing Facility: [facility] Address: [address] [place] [address] Performed By: #### 2 5-3, 24979-4 #### [facility] CLIA [id number] [address] [place] [address] Laboratory comment Jamarcus (Report) Comment Normal [facility] Comment on above: Order Comment: Good cheema Type: BLOOD SPECIMEN [facility]ing Facility: [facility] Address: [address] [place] [address] Result Comment: The MaterniT(R) 21 PLUS laboratory-developed test (LDT) analyzes circulating cell-free DNA from a maternal blood sample. This test is used for screening purposes and not diagnostic. Clinical correlation is recommended. Validation data on twin pregnancies is limited and the ability of this test to detect aneuploidy in higher multiple gestations has not yet been validated. Performed By: #### 2 4325-3, 75847-5 #### [facility] CLIA [id number] [address] [place] [address] forensics team director name Nom (Provider) Comment Normal [facility] Comment on above: Order Comment: Good cheema Type: BLOOD SPECIMEN [facility]ing Facility: [facility] Address: [address] [place] [address] Result Comment: This specimen showed an expected representation of chromosome 21, 18 and 13 material. Clinical correlation is suggested. Comment Ricky Garcia MD, PhD, Director, [facility] Performed By: #### 2 4325-3, 82224-4 #### [facility] [id number] [address] [place] [address] LIMITATIONS OF THE TEST Comment Normal [facility] Comment on above: Order Comment: Good cheema Type: BLOOD SPECIMEN [facility] Facility: [facility] Address: [address] [place] [address] Result Comment: Whil e the results of these tests are highly reliable, discordant results, including inaccurate sex prediction, may occur due to placental, maternal, or mosaicism or neoplasm; vanishing twin; prior maternal organ transplant; or other causes. These tests are screening tests and not diagnostic; they do not replace the accuracy and precision of diagnosis with CVS or amniocentesis. A patient with a positive test result should be referred for genetic counseling and offered invasive diagnosis for confirmation of test results.[5] The results of this testing, including the benefits and limitations, should be discussed with a qualified healthcare provider. management decisions, including termination of the , should not be based on the results of these tests alone. The healthcare provider is responsible for the use of this information in the management of their patient. Sex chromosomal aneuploidies are not reportable for known multiple gestations. A negative result does not ensure an unaffected nor does it exclude the possibility of other chromosomal abnormalities or defects which are not a part of these tests. An uninformative result may be reported, the causes of which may include, but are not limited to, insufficient sequencing coverage, noise or artifacts in the region, amplification or sequencing bias, or insufficient fraction. These tests are not intended to identify pregnancies at risk for neural tube defects or ventral wall defects. Testing for whole chromosome abnormalities (including sex chromosomes) and for subchromosomal abnormalities could lead to the potential discovery of both and maternal genomic abnormalities that could have major, minor, or no, clinical significance. Evaluating the significance of a positive or a non-reportable result may involve both invasive testing and additional studies on the mother. Such investigations may lead to a diagnosis of maternal chromosomal or subchromosomal abnormalities, which on occasion may be associated with benign or malignant maternal neoplasms. These tests may not accurately identify triploidy, balanced rearrangements, or the precise location of subchromosomal duplications or deletions; these may be detected by diagnosis with CVS or amniocentesis. The ability to report results may be impacted by maternal BMI, maternal weight, maternal systemic lupus erythematosus (SLE) and/or by certain pharmaceutical agents such as low molecular weight heparin (for example: Lovenox(R), Xaparin(R), Clexane(R) and Fragmin(R)). Performed By: #### 2 4325-3, 71271-2 #### [facility] CLIA [id number] [address] [place] [address] [place] Monosomy X risk Dosage of chromosome-specific cfDNA Ql (Plasma cell-free+WBC DNA) [Interp] Not detected Normal [facility] Comment on above: Order Comment: Speci men Type: BLOOD SPECIMEN [facility]ing Facility: [facility] Address: [address] [place] [id number] Performed By: #### 2 4325-3, 34703-8 #### [facility] CLIA [id number] [address] [place] [address] NEGATIVE PREDICTIVE VALUE Note Normal [facility] Comment on above: Order Comment: Good cheema Type: BLOOD SPECIMEN [facility]ing Facility: [facility] Address: [address] [place] [address] Result Comment: The Negative Predictive Value (NPV) for trisomy 21, 18, and 13 is greater than 99%. The NPV for SCA and ESS cannot be calculated as SCA and ESS are only reported when an abnormality is detected. Performed By: #### 2 4325-3, 05595-7 #### [facility] CLIA [id number] [address] [place] [address] PERFORMANCE CHARACTERISTICS Note Normal [facility] Comment on above: Order Comment: Good cheema Type: BLOOD SPECIMEN [facility]ing Facility: [facility] Address: [address] [place] [address] Result Comment: ! Sex ! Accuracy: 99.4% ! ! ! ! Region (associated syndrome) ! Est. Sens# ! Est. Spec ! ! ! ! Trisomy 21 (Down Syndrome) ! 99.1% ! 99.9% ! ! ! ! Trisomy 18 (Adan Syndrome) ! >99.9% ! 99.6% ! ! ! ! Trisomy 13 (Patau Syndrome) ! 91.7% ! 99.7% ! ! ! ! Sex Chromosome Aneuploidies## ! 96.2% ! 99.7% ! ! ! * As reported in [facility] database nstd37 [https://www.ncbi.nlm.nih.gov/dbvar/studies/nstd37/ ] # Estimated Sensitivity. Sensitivity estimated across the observed size distribution of each syndrome [per ISCA database nstd37] and across the range of fractions observed in routine clinical NIPT. Actual sensitivity can also be influenced by other factors such as the size of the event, total sequence counts, amplification bias, or sequence bias. ## Reddy gestation only. Performed By: #### 2 4325-3, #### [facility] [id number] [address] [place] [address] [place] POSITIVE PREDICTIVE VALUE N/A Normal [facility] Comment on above: Order Comment: Speci men Type: BLOOD SPECIMEN [facility]ing Facility: [facility] Address: [address] [place] [address] Performed By: #### 2 4325-3, 39662-2 #### [facility] CLIA [id number] [address] [place] [address] [place] Reference Lab Test Method Comment Normal [facility] Comment on above: Order Comment: Speci men Type: BLOOD SPECIMEN [facility]ing Facility: [facility] Address: [address] [place] [address] Result Comment: See Notes Circulating cell-free DNA was purified from the plasma component of maternal blood. The extracted DNA was then converted into a genomic DNA library for aneuploidy analysis of chromosomes 21, 18, and 13 via next generation sequencing.[1] Optional findings based on the test order include sex chromosome aneuploidy (SCA)[2], and enhanced sequencing series (ESS)[3], which will only be reported on as an additional finding when an abnormality is detected. SCA testing includes information on X and Y representation, while ESS testing includes deletions in selected regions (22q, 15q, 11q, 8q, 5p, 4p, 1p) and trisomy of chromosomes 16 and 22. Performed By: #### 2 4325-3, 32610-0 #### [facility] CLIA [id number] [address] [place] [address] [place] Service comment (Unsp spec) [Interp] Comment Normal [facility] Comment on above: Order Comment: Speci men Type: BLOOD SPECIMEN [facility] Facility: [facility] Address: [address] [place] [address] Result Comment: See Notes [employer] is a subsidiary of [facility], using the brand [employer]. This test was developed and its performance characteristics determined by [employer]. It has not been cleared or approved by the Food and Drug Administration. This laboratory is certified under the Clinical Laboratory Improvement Amendments (CLIA) as qualified to perform high complexity clinical laboratory testing and accredited by the [employer] [place] [employer] (CAP). If there is future clinical need for adding MaterniT GENOME testing, this specimen will be available until term. [facility] samples will not be retained beyond 60 days. [facility] patients will have to send a new sample for re-sequencing ([facility] Test Code: 922672). Performed By: #### 2 4325-3, 43520-9 #### [facility] CLIA [id number] [address] [place] [address] [place] Sex Dosage of chromosome-specific cfDNA Nom (cfDNA) Comment Normal [facility] Comment on above: Order Comment: Speci men Type: BLOOD SPECIMEN [facility] Facility: [facility] Address: [address] [place] [address] Result Comment: Cons istent with Female Performed By: #### 2 5-3, 22042-0 #### [facility] CLIA [id number] [address] [place] [address] [place] Test performance information Jamarcus (Unsp spec) Comment Normal [facility] Comment on above: Order Comment: Speci men Type: BLOOD SPECIMEN [facility] Facility: [facility] Address: [address] [place] [address] Result Comment: The performance characteristics of the MaterniT(R) 21 PLUS laboratory-developed test (LDT) have been determined in a clinical validation study with women at increased risk for chromosomal aneuploidy.[1-4] Performed By: #### 2 4324-3, 83294-2 #### [facility] CLIA [id number] [address] [place] [address] [place] Trisomy 13 risk Dosage of chromosome-specific cfDNA Ql (cfDNA) [Interp] Negative Normal [facility] Comment on above: Order Comment: Speci men Type: BLOOD SPECIMEN [facility]ing Facility: [facility] Address: [address] [place] [address] Performed By: #### 2 4325-3, 64445-8 #### [facility] CLIA [id number] [address] [place] [address] [place] Trisomy 18 risk Dosage of chromosome-specific cfDNA Ql (Plasma cell-free+WBC DNA) [Interp] Negative Normal [facility] Comment on above: Order Comment: Speci men Type: BLOOD SPECIMEN [facility] Facility: [facility] Address: [address] [place], [place] [address], [place] [address] Performed By: #### 2 4325-3, 74462-8 #### [facility] [place] [id number] [address] [place] [address] [facility] Sandy 08-06-2024 CNPN Telephone (OGFVWE) ADRIANE CARD ([id number]) 1985 F Date Time Provider Department 08/06/24 NURSE SIZE MARKER [facility] During your visit today, we recorded the following information about you: Lexi Veloz RN 08/06/2024 10:36 AM Signed 1st risk assessment form submitted 08/06/2024. Lexi Veloz RN Allergies As of Date: 08/06/2024 (No Known Allergies) Date Reviewed: 08/04/2024 Reviewed by: Raffy Kate MA - Fully Assessed Reason for Visit: PRAF [4193] Prescriptions as of 08/06/2024 - aspirin, enteric coated (ECOTRIN LOW STRENGTH) 81 mg EC tablet Take 1 tablet by mouth once daily. - famotidine (PEPCID) 20 mg tablet Take 1 tablet by mouth two times a day. - PNV no.95/ferrous fum/folic ac ( ORAL) Take by mouth. Problem List As Of Date 08/06/2024 Noted Resolved Supervision of Other Normal [Z34.80] 06/30/2007 07/19/2009 [facility]RT [facility]ENT LABOR-ANTEPART [O47.00] 09/03/2007 11/11/2007 Unspecified Anemia [D64.9] 10/01/2007 07/19/2009 Abdominal Pain, Generalized [R10.84] 10/01/2007 07/19/2009 GERD (Gastroesophageal Reflux Disease) [K21.9] 07/19/2009 Two previous miscarriages, affecting care of mo*05/19/2015 05/10/2017 History of toxemia of [Z87.59] 05/19/2015 Tobacco smoking complicating in first*05/19/2015 05/10/2017 History of depression [Z87.59, Z86.5*05/19/2015 Patient requested diagnostic testing [Z01.89] 05/19/2015 05/10/2017 Tattoo [L81.8] 05/19/2015 Encounter for supervision of normal i*05/27/2015 05/10/2017 Malignant melanoma of torso excluding breast (H*03/26/2024 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] 04/23/2024 History of positive PPD, 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] 08/04/2024 CHERI (generalized anxiety disorder) [F41.1] 08/04/2024 History of delivery [Z87.51] 08/04/2024 History of melanoma [Z85.820] 08/04/2024 History of pre-eclampsia [Z87.59] 08/04/2024 Encounter for supervision of high risk pregnanc*08/04/2024 Multigravida of advanced maternal age in first *08/04/2024 Heartburn during in first trimester (*08/04/2024 Encounter Status:Closed by LEXI VELOZ on 08/06/24 [facility] PACO US AXILLA ONLY LTon 06- PACO US AXILLA ONLY LT * * *Final Report* * * DATE OF EXAM: Aug 05 2024 11:06AM [id number] - PACO US AXILLA ONLY LT / PROCEDURE REASON: 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) * * * * Physician Interpretation * * * * #[id number] - PACO US AXILLA ONLY LT #[id number] - PACO US AXILLA ONLY RT HISTORY: 39 year-old patient presents for diagnostic evaluation. Patient is asymptomatic in the left breast. Patient states no personal history of breast cancer. COMPARISON STUDIES: The present examination has been compared to prior imaging studies dated 06/03/2018 (mammogram) and 06/03/2018 (ultrasound). ULTRASOUND TECHNIQUE: Targeted ultrasound of the indicated area was performed. Card scale images were saved. ULTRASOUND FINDINGS: There are benign lymph nodes in the bilateral axillae, demonstrating intact fatty hilus and normal cortical thickness. No enlarged or abnormal lymph nodes are identified within either axilla. No masses or fluid collections. IMPRESSION: There are no suspicious sonographic findings in the bilateral axillary regions. Return to annual screening mammogram is recommended. Annual mammogram will be due at age 41. BI-RADS Category 2: Benign Interpreting Radiologist: Salvador Lang M.D. Electronically signed on: 08/05/2024 Brusher Hand: BERNADINE Transcribe Date/Time: Aug 05 2024 11:33A Dictated by : SALVADOR LANG MD This examination was interpreted and the report reviewed and electronically signed by: SALVADOR LANG MD on Aug 05 2024 11:35AM EST [id number] N Normal [facility] PACO US AXILLA ONLY RTon 07-26 PACO US AXILLA ONLY RT * * *Final Report* * * DATE OF EXAM: Aug 05 2024 11:06AM WRU [id number] - PACO US AXILLA ONLY RT / PROCEDURE REASON: 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) * * * * Physician Interpretation * * * * #[id number] - PACO US AXILLA ONLY LT #[id number] - PACO US AXILLA ONLY RT HISTORY: 39 year-old patient presents for diagnostic evaluation. Patient is asymptomatic in the left breast. Patient states no personal history of breast cancer. COMPARISON STUDIES: The present examination has been compared to prior imaging studies dated 06/03/2018 (mammogram) and 06/03/2018 (ultrasound). ULTRASOUND TECHNIQUE: Targeted ultrasound of the indicated area was performed. Card scale images were saved. ULTRASOUND FINDINGS: There are benign lymph nodes in the bilateral axillae, demonstrating intact fatty hilus and normal cortical thickness. No enlarged or abnormal lymph nodes are identified within either axilla. No masses or fluid collections. IMPRESSION: There are no suspicious sonographic findings in the bilateral axillary regions. Return to annual screening mammogram is recommended. Annual mammogram will be due at age 41. BI-RADS Category 2: Benign Interpreting Radiologist: Salvador Lang M.D. Electronically signed on: 08/05/2024 Brusher Hand: BERNADINE Transcribe Date/Time: Aug 05 2024 11:33A Dictated by : SALVADOR LANG MD This examination was interpreted and the report reviewed and electronically signed by: SALVADOR LANG MD on Aug 05 2024 11:35AM EST [id number] N Normal [facility] No Panel Informationon 08-05 IMPRESSION: There are no suspicious sonographic findings in the bilateral axillary regions. Return to annual screening mammogram is recommended. Annual mammogram will be due at age 41. BI-RADS Category 2: Benign Interpreting Radiologist: Salvador Lang M.D. Electronically signed on: 08/05/2024 Brusher Hand: BERNADINE Transcribe Date/Time: Aug 05 2024 11:33A Dictated by : SALVADOR LANG MD This examination was interpreted and the report reviewed and electronically signed by: SALVADOR LANG MD on Aug 05 2024 11:35AM EST DIVISION OF RADIOLOGY Radiology Study observation (narrative) [facility] No Panel InformationOrdered By: Ccf Provider on 08-05-2024 [facility] US Axilla - lefton * * *Final Report* * * DATE OF EXAM: Aug 05 2024 11:06AM WRU 0591 - [facility] US AXILLA ONLY LT / PROCEDURE REASON: 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) * * * * Physician Interpretation * * * * #[id number] - PACO US AXILLA ONLY LT #[id number] - PACO US AXILLA ONLY RT HISTORY: 39 year-old patient presents for diagnostic evaluation. Patient is asymptomatic in the left breast. Patient states no personal history of breast cancer. COMPARISON STUDIES: The present examination has been compared to prior imaging studies dated 06/03/2018 (mammogram) and 06/03/2018 (ultrasound). ULTRASOUND TECHNIQUE: Targeted ultrasound of the indicated area was performed. Card scale images were saved. ULTRASOUND FINDINGS: There are benign lymph nodes in the bilateral axillae, demonstrating intact fatty hilus and normal cortical thickness. No enlarged or abnormal lymph nodes are identified within either axilla. No masses or fluid collections. DIVISION OF RADIOLOGY Provider, [facility] - 08/05/2024 * * *Final Report* * * DATE OF EXAM: Aug 05 2024 11:06AM WRU 0591 - PACO US AXILLA ONLY LT / PROCEDURE REASON: 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) * * * * Physician Interpretation * * * * #[id number] - PACO US AXILLA ONLY LT #[id number] - PACO US AXILLA ONLY RT HISTORY: 39 year-old patient presents for diagnostic evaluation. Patient is asymptomatic in the left breast. Patient states no personal history of breast cancer. COMPARISON STUDIES: The present examination has been compared to prior imaging studies dated 06/03/2018 (mammogram) and 06/03/2018 (ultrasound). ULTRASOUND TECHNIQUE: Targeted ultrasound of the indicated area was performed. Card scale images were saved. ULTRASOUND FINDINGS: There are benign lymph nodes in the bilateral axillae, demonstrating intact fatty hilus and normal cortical thickness. No enlarged or abnormal lymph nodes are identified within either axilla. No masses or fluid collections. IMPRESSION IMPRESSION: There are no suspicious sonographic findings in the bilateral axillary regions. Return to annual screening mammogram is recommended. Annual mammogram will be due at age 41. BI-RADS Category 2: Benign Interpreting Radiologist: Salvador Lang M.D. Electronically signed on: 08/05/2024 Brusher Hand: [facility] Transcribe Date/Time: Aug 05 2024 11:33A Dictated by : SALVADOR LANG MD This examination was interpreted and the report reviewed and electronically signed by: SALVADOR LANG MD on Aug 05 2024 11:35AM [facility] US Axilla - righton 08-06-19 25 * * *Final Report* * * DATE OF EXAM: Aug 05 2024 11:06AM U 0592 - [facility] US AXILLA ONLY RT / PROCEDURE REASON: 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) * * * * Physician Interpretation * * * * #[id number] - PACO US AXILLA ONLY LT #[id number] - PACO US AXILLA ONLY RT HISTORY: 39 year-old patient presents for diagnostic evaluation. Patient is asymptomatic in the left breast. Patient states no personal history of breast cancer. COMPARISON STUDIES: The present examination has been compared to prior imaging studies dated 06/03/2018 (mammogram) and 06/03/2018 (ultrasound). ULTRASOUND TECHNIQUE: Targeted ultrasound of the indicated area was performed. Card scale images were saved. ULTRASOUND FINDINGS: There are benign lymph nodes in the bilateral axillae, demonstrating intact fatty hilus and normal cortical thickness. No enlarged or abnormal lymph nodes are identified within either axilla. No masses or fluid collections. DIVISION OF RADIOLOGY Provider, [facility] - 08/05/2024 * * *Final Report* * * DATE OF EXAM: Aug 05 2024 11:06AM WRU 0592 - PACO US AXILLA ONLY RT / PROCEDURE REASON: 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) * * * * Physician Interpretation * * * * #[id number] - PACO US AXILLA ONLY LT #[id number] - PACO US AXILLA ONLY RT HISTORY: 39 year-old patient presents for diagnostic evaluation. Patient is asymptomatic in the left breast. Patient states no personal history of breast cancer. COMPARISON STUDIES: The present examination has been compared to prior imaging studies dated 06/03/2018 (mammogram) and 06/03/2018 (ultrasound). ULTRASOUND TECHNIQUE: Targeted ultrasound of the indicated area was performed. Card scale images were saved. ULTRASOUND FINDINGS: There are benign lymph nodes in the bilateral axillae, demonstrating intact fatty hilus and normal cortical thickness. No enlarged or abnormal lymph nodes are identified within either axilla. No masses or fluid collections. IMPRESSION IMPRESSION: There are no suspicious sonographic findings in the bilateral axillary regions. Return to annual screening mammogram is recommended. Annual mammogram will be due at age 41. BI-RADS Category 2: Benign Interpreting Radiologist: Salvador Lang M.D. Electronically signed on: 08/05/2024 Brusher Hand: [facility] Transcribe Date/Time: Aug 05 2024 11:33A Dictated by : SALVADOR LANG MD This examination was interpreted and the report reviewed and electronically signed by: SALVADOR LANG MD on Aug 05 2024 11:35AM EST [facility] Bacteria Ur Culton 5 Bacteria identified Cx Nom (U) CULTURE, URINE: No growth (<1,000 CFU/ml) Normal [facility] Comment on above: Performed By: #### 7 3752-8, 5195-3, 41733-6 #### [facility] CLIA [id number] [address] [place] [address] [place] C. trachomatis+N. gonorrhoea e DNA YAS+probe Ql (Unsp spec)on 08-04-2024 C. trachomatis rRNA YAS+probe Ql (Unsp spec) Not detected Not detected [facility] Interpretation and review of laboratory results Normal [facility] N. gonorrhoeae rRNA YAS+probe Ql (Unsp spec) Not detected Not detected [facility] This FDA-approved assay has been modified to accept rectal swabs self-collected in a healthcare setting. For self-collected rectal swabs, the test was developed and its performance characteristics determined by the [facility]'s [facility] Pathology and Laboratory Medicine [place] ([facility]). It has not been cleared or approved by the FDA. [facility] is regulated under CLIA as qualified to perform high-complexity testing. This test is used for clinical purposes. It should not be regarded as investigational or for research. [facility] C. trachomatis rRNA YAS+probe Ql (Unsp spec) Not detected Normal Not detected [facility] Comment on above: Order Comment: Speci men Type: SWABOrdering Facility: [facility] Address: [address] [place] [address] Performed By: #### 3 6902-5 ####[facility]IA [id number] [place] [address] [place] N. gonorrhoeae rRNA YAS+probe Ql (Unsp spec) Not detected Normal Not detected [facility] Comment on above: Order Comment: Speci men Type: SWABOrdering Facility: [facility] Address: [address] [place] [address] Performed By: #### 3 6902-5 ####[facility]IA [id number] [place] [address] [place] POC SANDING MACHINE TENDER ULTRASOUNDon 08-05-19 25 Indication Viability; confirm cardiac activity Impression Single intrauterine gestational sac, CRL is appropriate for clinical dates, corresponding to MORENO cardiac activity is visualized Recommendations Follow up for 1st Trimester Anatomy with Nuchal Translucency as clinically indicated if desired. Method Transvaginal ultrasound examination Reddy . Number of embryos: 1 Dating LMP on: 05/23/2024 GA by LMP 10 w + 3 d MORENO by LMP: 02/27/2025 Ultrasound examination on: 08/04/2024 GA by U/S based upon: CRL GA by U/S 9 w + 5 d MORENO by U/S: 03/04/2025 Assigned: based on ultrasound (CRL), selected on 07/16/2024 Assigned GA 9 w + 2 d Assigned MORENO: 03/07/2025 Biometry Standard CRL 28.9 mm 9w 5d 92% Hadlock Assessment Gestational sac: visualized Location: intrauterine Yolk sac: visualized Embryo: visualized CRL 28.9 mm 9w 5d 92% Hadlock Cardiac activity: present General Evaluation Cardiac activity present Performed By: Jen Bowling CNM Read By: Jen Bowling CNM MATERNAL MEDICINE [facility] Radiology Study observation (narrative) [facility] CNOVon 07-28-2024 CNOV Office Visit (AGGENS3) BAILEYADRIANE ABDI ([id number]) 1985 F Date Time Provider Department 07/28/24 11:00 AM SANJUANITA RODARTE AGGENS3 During your visit today, we recorded the following information about you: Weight Height 62.6 kg 1.676 m Sanjuanita Rodarte MD 07/28/2024 11:39 AM Signed Sanjuanita Rodarte MD Surgical Oncology 1 [facility], [address] [place] [address] Name: Adriane Avalos Age: [age] year old Sex: Adriane Avalos : 1985 Referring Provider: No ref. provider found Subjective CHIEF COMPLAINT: Melanoma surveillance ONCOLOGIC HISTORY: 03/03/24: Melanoma of upper back 04/03/24: WLE + SLNB, path: [id number] Anatomic Location: Upper back Breslow Depth: 1.5mm Ulceration: No Mitosis: 1/mm2 Waldo Lymph Node Biopsy: Yes Number of positive SLN: +1/2 Largest deposit: 0.1mm HISTORY OF PRESENT ILLNESS: Ms. Avalos is a 39 year old female who presents for follow up for history of melanoma. Recently had dermatology appointment where they biopsied another skin lesion which returned with some atypical cells. So she is undergoing a further excision tomorrow. Is currently 9 weeks . Neoadjuvant Immunotherapy: No Number of Neoadjuvant Immunotherapy Cycles: N/A Adjuvant Immunotherapy: No Number of Adjuvant Immunotherapy Cycles: N/A Recurrence: No Location of Recurrence: N/A I personally reviewed Objective PHYSICAL EXAM: Ht 5' 6 (1.68m) Wt 138 lb (62.6kg) LMP 05/23/2024 BMI 22.28 kg/(m2). Physical Exam Constitutional: General: She is not in acute distress. Appearance: Normal appearance. HENT: Head: Normocephalic and atraumatic. Mouth/Throat: Mouth: Mucous membranes are moist. Eyes: Extraocular Movements: Extraocular movements intact. Cardiovascular: Rate and Rhythm: Normal rate. Pulmonary: Effort: Pulmonary effort is normal. No respiratory distress. Abdominal: General: Abdomen is flat. Palpations: Abdomen is soft. Musculoskeletal: General: Normal range of motion. Cervical back: Normal range of motion. Lymphadenopathy: Cervical: No cervical adenopathy. Upper Body: Right upper body: No supraclavicular or axillary adenopathy. Left upper body: No supraclavicular or axillary adenopathy. Lower Body: No right inguinal adenopathy. No left inguinal adenopathy. Skin: General: Skin is warm and dry. Comments: WLE scar well healed without evidence of recurrence or pigmented lesions. Neurological: General: No focal deficit present. Mental Status: She is alert and oriented to person, place, and time. Mental status is at baseline. Psychiatric: Mood and Affect: Mood normal. Behavior: Behavior normal. Thought Content: Thought content normal. Judgment: Judgment normal. DATA: Labs: N/A Images: N/A Assessment/Plan Ms. Avalos is a 39 year old female with history of melanoma of upper back, s/p WLE and SLNB, no signs of recurrence. -Will follow up on previously scheduled US of axilla -Follow up in 3 months with imaging - US of axilla given . -Follow up with Dermatology q3 months. -Skin protection discussed Cancer Staging 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) Staging form: Melanoma of the Skin, AJCC 8th Edition - Pathologic stage from 04/03/2024: Stage IIIA (pT2a, pN1a, cM0) - Signed by Sanjuanita Rodarte MD on 04/13/2024 Sanjuanita Rodarte MD 07/28/2024 1138 Allergies As of Date: 07/28/2024 (No Known Allergies) Date Reviewed: 07/28/2024 Reviewed by: Sanjuanita Rodarte MD - Fully Assessed Reason for Visit: Established Patient [175] Cmt: 3 month follow up, melanoma Primary Visit Diagnosis: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) [C43.59] Order(s):US AXILLA ONLY LEFT [[id number]] Order #: [id number] FUTURE US AXILLA ONLY RIGHT [[id number]] Order #: [id number] FUTURE Prescriptions as of 07/28/2024 - iv contrast (will be provided with radiology test) CT Chest ABD/PEL-Inject, intravenously, once for 1 dose.No IV access, insert saline lock prior to the beginning of sedation, infusion, injection of imaging exam. Discontinue saline lock post exam. If Pt. has a central line or IVAD, may access for administration according to line specific nursing protocol. Once exam is complete flush line and de-access according to line specific nursing protocol in the CT contrast administration guidelines link. - albuterol HFA (PROAIR HFA) 90 mcg/actuation inhaler Inhale 2 Puffs as instructed every 4 hours as needed for Wheezing/Shortness of Breath. Problem List As Of Date 07/28/2024 Noted Resolved Supervision of Other Normal [Z34.80] 06/30/2007 07/19/2009 THRT TRENT LABOR-ANTEPART [O47.00] 09/03/2007 11/11/2007 Unspecified Anemia [D64.9] 10/01/2007 07/19/2009 Abdominal Pain, Generalized [R10.84] 10/01/2007 07/19/2009 GERD ( (more content not included)... Normal [facility] CNOVon 07-16-2024 CNOV Office Visit (OBGYWM ) ADRIANE AVALOS ([id number]) 1985 F Date Time Provider Department 07/16/24 10:45 AM ARIN TAYLOR OBGYWMihaela During your visit today, we recorded the following information about you: Blood pressure Weight Last Period 10460 61.2 kg 05/23/24 Arin Taylor APRN.OPERATIONS OFFICER 07/16/2024 12:08 PM Signed 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 Adriane Avalos is a 39 year old female who presents for problem visit of positive test. HPI: Adriane presents for confirmation of . Taking PNV. was unplanned, but she is accepting. LMP 05/23/24. OB History Gravida5 Para3 Term2 Preterm1 AB2 Living3 SAB2 IAB0 Ectopic0 Multiple0 Live Births3 Dean Of Admissions History LMP: 05/23/2024 (Exact Date), Age at Menarche: 14 Age at First : Age at Menopause: Dean Of Admissions History Comments: Sexual Activity: Yes; Male Contraception: No contraception data on record Menstrual Tracking History Flowsheet Row Office Visit from 04/23/2024 in OB/Gynecology Period Cycle (Days) 28 Period Duration (Days) 6 Menstrual Flow Moderate PAST MEDICAL HISTORY Diagnosis Date - Anemia - GERD (gastroesophageal reflux disease) - History of pre-eclampsia - kidney stones - Known medical problems melanoma back - depression PAST SURGICAL HISTORY Procedure Laterality Date - IUD INSERTION (OUTCOMES MANAGER DEPT)_*[place] 01/29/2008 Mirena - IUD REMOVAL (OUTCOMES MANAGER DEPT)_*FL 06/28/2008 Mirena - KIDNEY STONE SURGERY HX 09/2021 - PAST SURGICAL HISTORY OF 2024 skin lesion biopsy, back FAMILY HISTORY Problem Relation Age of Onset - Breast Cancer Maternal Grandmother 75 - Melanoma Maternal Grandmother one on nose - Diabetes Maternal Grandfather - Heart Maternal Grandfather [place]- Social History Tobacco Use - Smoking status: Former Current packs/day: 0.50 Average packs/day: 0.5 packs/day for 0.4 years (0.2 ttl pk-yrs) Types: Cigarettes Start date: 06/02/2009 Quit date: 06/03/2015 - Smokeless tobacco: Never Vaping Use - Vaping status: Never Used Substance Use Topics - Alcohol use: Not Currently Comment: OCCASIONALLY - Drug use: Never Current Outpatient Medications Medication Sig - albuterol HFA (PROAIR HFA) 90 mcg/actuation inhaler Inhale 2 Puffs as instructed every 4 hours as needed for Wheezing/Shortness of Breath. - iv contrast (will be provided with radiology test) CT Chest ABD/PEL-Inject, intravenously, once for 1 dose.No IV access, insert saline lock prior to the beginning of sedation, infusion, injection of imaging exam. Discontinue saline lock post exam. If Pt. has a central line or IVAD, may access for administration according to line specific nursing protocol. Once exam is complete flush line and de-access according to line specific nursing protocol in the CT contrast administration guidelines link. No current facility-administered medications for this visit. Allergies As of Date: 07/16/2024 (No Known Allergies) Fully Assessed 07/16/2024 REVIEW OF SYSTEMS Expanded ROS: OUTCOMES MANAGER: + test Allergies and current medication updated:Yes SENSITIVE EXAM: The sensitive examination was discussed with the Patient or Patient's Authorized Senior Quality Control Inspector. As applicable, any other physician, advance practice provider, medical student, or other health professional student that will be observing or involved in the sensitive examination for educational or training purposes was discussed with the Patient or Authorized Senior Quality Control Inspector. The Patient or Authorized Senior Quality Control Inspector has agreed to proceed with the sensitive examination. (Sensitive examination includes inspection and/or palpation of the breasts, pelvis, prostate and anorectal regions). EXAM: BP 104/60 Wt 135 lb (61.2kg) LMP 05/23/2024 GENERAL: pleasant, female in no apparent distress HEENT: Normocephalic, atraumatic, mucus membranes moist, and no lesions CHEST: Normal inspiratory effort PELVIC: external genitalia normal, normal Bartholin's glands, urethra, Haven's glands, no vulvar lesions, normal appearing perineal body and perianal region NEURO: alert and oriented x3,exam grossly non-focal EXTREMITIES: normal ASSESSMENT AND PLAN: 1. Encounter for test, result positive (HCC) - ICD9: V72.42, ICD10: Z32.01 (primary diagnosis) - Enrolled in care director rn - Recommend continuing PNV - Reviewed avoiding environmental exposures - Schedule new OB visit 2. with uncertain dates in first trimester (HCC) - ICD9: V22.1, ICD10: Z34.91 - POCUS confirms IUP - POCUS inconsistent with LMP. Confirm MORENO with NT RTO for new OB visit or sooner as needed. Arin Taylor, KAMLA.ARUY Medical Decision Making: Problems: Moderate: New problem with uncertain prognosis Data: Unique test(s) ordered: 2 Risk: Minimal: Minimal risk from testing/treatment Medical Decision Reyna (more content not included)... Normal [facility] OUTSIDE SURG PATH SLIDE REVI EWon 05-28-[address] [facility] Comment on above: Order Comment: Good cheema Type: BLOOD SPECIMEN [facility] Address: [address] [place] [address] Result Comment: Jg gómez Developed Test (LDT) Disclaimer: Performance characteristics of immunohistochemical, immunofluorescent, and chromogenic in-situ hybridization tests have been determined by the performing laboratory within [facility]'s [facility] Pathology and Laboratory Medicine Department ([facility], [facility], [facility], [facility], [facility], [facility], [facility], or [facility]) in a manner consistent with CLIA requirements. One or more of these tests may not have been cleared or approved by the FDA. [facility] is regulated under CLIA as qualified to perform high-complexity testing. These tests are used for clinical purposes. These should not be regarded as investigational or for research. Positive and negative controls stain appropriately. Performed By: #### 7 3752-8, 5195-3, 10456-3 #### [facility] CLIA [id number] [address] [place], [place] [address] [place] [address] [place] CASE REPORT Normal [facility] Comment on above: Order Comment: Good cheema Type: BLOOD SPECIMEN [facility] Address: [address] [place] [address] Result Comment: Surg ical Pathology Report Case: [id number] Authorizing Provider: Valeria Werner MD Collected: 05/28/2024 11:04 AM Ordering Location: [facility] Received: 05/28/2024 11:03 AM [facility] Pathologist: Linda Coates MD Specimen: Slide(s), 1 SLIDE [id number] Performed By: #### 7 3752-8, 5195-3, 23188-4 #### [facility] CLIA [id number] [address] [place] [address] [facility] Comment on above: Order Comment: Speci men Type: BLOOD SPECIMEN [facility] Address: [address] [place] [address] Result Comment: A. S kin, right superior medial upper back, shave biopsy ([id number], A1): - Melanoma, see synoptic report. JK/EB 05/28/2024 at 1012 EDT Performed By: #### 7 3752-8, 5195-3, 59462-3 #### [facility] CLIA [id number] [address] [place] [address] FINAL PERFORMING LAB Normal [facility] Comment on above: Order Comment: Speci men Type: BLOOD SPECIMEN [facility] Address: [address] [place] [address] Result Comment: Diag nostic interpretation performed at: [facility], [address] [place], [place] [address] CLIA# [id number] Dispatcher Street Department: Eamon Forte MD Performed By: #### 7 3752-8, 5195-3, 29204-9 #### [facility] CLIA [id number] [address] [place], [place] [id number] [facility] SYNOPTIC REPORT Normal [facility] Comment on above: Order Comment: Speci men Type: BLOOD SPECIMEN [facility] Address: [address] [place] [address] Result Comment: JONNY PEREZ MELANOMA OF THE SKIN: Biopsy MELANOMA OF THE SKIN: BIOPSY - All Specimens 8th Edition - Protocol posted: 02/06/2023 SPECIMEN Procedure: Biopsy, shave Specimen Laterality: Right TUMOR Tumor Site: Skin of trunk: Superior medial upper back Histologic Type: Low-cumulative sun damage (CSD) melanoma (including superficial spreading melanoma) Maximum Tumor (Breslow) Thickness (Millimeters): At least: 1.5 mm : The lesion focally abuts the base of the shave biopsy specimen. Ulceration: Not identified Anatomic (Wisam) Level: IV (melanoma invades reticular dermis) Mitotic Rate: 1 mitoses per mm2 Microsatellite(s): Not identified Lymphatic and / or Vascular Invasion: Not identified Neurotropism: Not identified Tumor-Infiltrating Lymphocytes: Present, brisk MARGINS Margin Status for Invasive Melanoma: Invasive melanoma present at margin Margin(s) Involved by Invasive Melanoma: Deep: focally abuts deep margin Margin Status for Melanoma In Situ: Melanoma in situ present at margin Margin(s) Involved by Melanoma In Situ: Peripheral pTMN CLASSIFICATION (AJCC 8th Edition) Reporting of pT category is based on information available to the pathologist at the time the report is issued. As per the AJCC (Chapter 1, 8th Ed.) it is the managing physician???s responsibility to establish the final pathologic stage based upon all pertinent information, including but potentially not limited to this pathology report. pT Category: pT2a Performed By: #### 7 3752-8, 5195-3, 86818-2 #### [facility] CLIA [id number] [address] [place] [address] [place] US CERVICAL LYMPH NODE MAPPI NGon 05-13-2024 US CERVICAL LYMPH NODE MAPPING * * *Final Report* * * DATE OF EXAM: May 13 2024 11:54AM [facility] 1049 - US CERVICAL LYMPH NODE MAPPING / PROCEDURE REASON: 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) * * * * Physician Interpretation * * * * CERVICAL LYMPH NODE MAPPING ULTRASOUND CLINICAL HISTORY: History of melanoma. Cervical lymph nodes reported on recent brain MRI. COMPARISON: MRI brain, 04/23/2024. TECHNIQUE: Sonography of the cervical lymph node stations was performed bilaterally. Images were obtained and stored in a permanent archive. RESULT: Right neck: - Level I: No abnormal lymph nodes. - Level II: No abnormal lymph nodes. - Level III: No abnormal lymph nodes. - Level IV: No abnormal lymph nodes. - Level V: No abnormal lymph nodes. Nonenlarged (0.8 cm short axis) posterior neck lymph node corresponds to the palpable abnormality. Left neck: - Level I: No abnormal lymph nodes. - Level II: No abnormal lymph nodes. - Level III: No abnormal lymph nodes. - Level IV: No abnormal lymph nodes. - Level V: No abnormal lymph nodes. Central compartment, Level : No abnormal lymph nodes. IMPRESSION: No pathologic cervical lymphadenopathy. Non-enlarged right posterior cervical node corresponds to a palpable abnormality. Brusher Hand: [facility] Transcribe Date/Time: May 13 2024 11:58A Dictated by : CHAZ MARIE MD This examination was interpreted and the report reviewed and electronically signed by: CHAZ MARIE MD on May 13 2024 12:00PM EST [id number] N Normal [facility] US Head and Neckon Radiology Study observation (narrative) [facility] IMPRESSION: No pathologic cervical lymphadenopathy. Non-enlarged right posterior cervical node corresponds to a palpable abnormality. Brusher Hand: [facility] Transcribe Date/Time: May 13 2024 11:58A Dictated by : CHAZ MARIE MD This examination was interpreted and the report reviewed and electronically signed by: CHAZ MARIE MD on May 13 2024 12:00PM [facility] DIVISION OF RADIOLOGY * * *Final Report* * * DATE OF EXAM: May 13 2024 11:54AM [facility] [address] [facility] CERVICAL LYMPH NODE MAPPING / PROCEDURE REASON: 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) * * * * Physician Interpretation * * * * CERVICAL LYMPH NODE MAPPING ULTRASOUND CLINICAL HISTORY: History of melanoma. Cervical lymph nodes reported on recent brain MRI. COMPARISON: MRI brain, 04/23/2024. TECHNIQUE: Sonography of the cervical lymph node stations was performed bilaterally. Images were obtained and stored in a permanent archive. RESULT: Right neck: - Level I: No abnormal lymph nodes. - Level II: No abnormal lymph nodes. - Level III: No abnormal lymph nodes. - Level IV: No abnormal lymph nodes. - Level V: No abnormal lymph nodes. Nonenlarged (0.8 cm short axis) posterior neck lymph node corresponds to the palpable abnormality. Left neck: - Level I: No abnormal lymph nodes. - Level II: No abnormal lymph nodes. - Level III: No abnormal lymph nodes. - Level IV: No abnormal lymph nodes. - Level V: No abnormal lymph nodes. Central compartment, Level : No abnormal lymph nodes. DIVISION OF RADIOLOGY Provider, Jocelyne Long - 05/13/2024 * * *Final Report* * * DATE OF EXAM: May 13 2024 11:54AM [facility] - US CERVICAL LYMPH NODE MAPPING / PROCEDURE REASON: 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) * * * * Physician Interpretation * * * * CERVICAL LYMPH NODE MAPPING ULTRASOUND CLINICAL HISTORY: History of melanoma. Cervical lymph nodes reported on recent brain MRI. COMPARISON: MRI brain, 04/23/2024. TECHNIQUE: Sonography of the cervical lymph node stations was performed bilaterally. Images were obtained and stored in a permanent archive. RESULT: Right neck: - Level I: No abnormal lymph nodes. - Level II: No abnormal lymph nodes. - Level III: No abnormal lymph nodes. - Level IV: No abnormal lymph nodes. - Level V: No abnormal lymph nodes. Nonenlarged (0.8 cm short axis) posterior neck lymph node corresponds to the palpable abnormality. Left neck: - Level I: No abnormal lymph nodes. - Level II: No abnormal lymph nodes. - Level III: No abnormal lymph nodes. - Level IV: No abnormal lymph nodes. - Level V: No abnormal lymph nodes. Central compartment, Level : No abnormal lymph nodes. IMPRESSION IMPRESSION: No pathologic cervical lymphadenopathy. Non-enlarged right posterior cervical node corresponds to a palpable abnormality. Brusher Hand: [facility] Transcribe Date/Time: May 13 2024 11:58A Dictated by : CHAZ MARIE MD This examination was interpreted and the report reviewed and electronically signed by: CHAZ MARIE MD on May 13 2024 12:00PM [facility] US Head and NeckOrdered By: Ccf Provider on 05-13-2024 [facility] CNOVSPon 05-01-2024 CNOVSP Visit (SP) [facility] ADRIANE AVALOS ([id number]) 1985 F Date Time Provider Department 05/01/24 9:00 AM VALER[facility] WERN[facility] During your visit today, we recorded the following information about you: Temperature Pulse Respiration Blood pressure 96.8 degrees 76/minute 20/minute 106/85 Weight Height 59.6 kg 1.689 m Valeria Werner MD 05/01/2024 10:58 AM Signed [facility] Patient name: Adriane Avalos Date of service: May 01, 2024 Diagnosis Stage IIIA melanoma, upper back Oncology History Stage IIIA melanoma of upper back 03/03/24: melanoma of upper back: Depth 1.5 mm. Ulceration not present. Performed at [facility] 04/03/24 WLE and SLNB: no residual melanoma. [place] lymph node with metastatic melanoma in 1/2 lymph nodes. The metastatic deposit measures 0.1 mm. No extranodal extension is present. 04/23/24 CT C/A/P and brain MRI: incompletely evaluated cervical nodes for which she will have ultrasound; otherwise no evidence of metastatic disease Molecular None Current treatment Surveillance History of Present Illness Ms. Avalos is seen for a diagnosis of stage IIIA melanoma of upper back with < 1mm lymph node involvement. She had biopsy of the upper back on 03/03/24 with pathology showing melanoma, thickness 1.5 mm, ulceration not present. WLE and SLNB on 04/03/24 with metastatic melanoma in 1 lymph node with largest deposit of melanoma measuring 0.1 mm. She has no history of autoimmune disease. Past Medical History PAST MEDICAL HISTORY Diagnosis Date Anemia GERD (gastroesophageal reflux disease) History of pre-eclampsia kidney stones Known medical problems melanoma back depression Surgical History PAST SURGICAL HISTORY Procedure Laterality Date IUD INSERTION (OUTCOMES MANAGER DEPT)_*FL 01/29/2008 Mirena IUD REMOVAL (OUTCOMES MANAGER DEPT)_*FL 06/28/2008 Mirena KIDNEY STONE SURGERY HX 09/2021 PAST SURGICAL HISTORY OF 2024 skin lesion biopsy, back Family History FAMILY HISTORY Problem Relation Age of Onset Breast Cancer Maternal Grandmother 75 Melanoma Maternal Grandmother Diabetes Maternal Grandfather Heart Maternal Grandfather [place]- Social History Social History Tobacco Use Smoking status: Every Day Current packs/day: 0.50 Average packs/day: 0.5 packs/day for 0.2 years (0.1 ttl pk-yrs) Types: Cigarettes Start date: 06/02/2009 Last attempt to quit: 06/03/2015 Smokeless tobacco: Never Vaping Use Vaping status: Never Used Substance Use Topics Alcohol use: Not Currently Comment: OCCASIONALLY Drug use: Never Medications Current Outpatient Medications Medication Sig Dispense Refill gabapentin (NEURONTIN) 100 mg capsule Take 1 capsule by mouth three times a day for 14 days. 42 capsule 0 iv contrast (will be provided with radiology test) CT Chest ABD/PEL-Inject, intravenously, once for 1 dose.No IV access, insert saline lock prior to the beginning of sedation, infusion, injection of imaging exam. Discontinue saline lock post exam. If Pt. has a central line or IVAD, may access for administration according to line specific nursing protocol. Once exam is complete flush line and de-access according to line specific nursing protocol in the CT contrast administration guidelines link. 1 Each 0 Norethindrone, Contraceptive, (CANDICE) 0.35 mg tablet Take 1 tablet by mouth once daily. 84 tablet 3 albuterol HFA (PROAIR HFA) 90 mcg/actuation inhaler Inhale 2 Puffs as instructed every 4 hours as needed for Wheezing/Shortness of Breath. 1 Inhaler 0 iv contrast (will be provided with radiology test) CT Chest ABD/PEL-Inject, intravenously, once for 1 dose.No IV access, insert saline lock prior to the beginning of sedation, infusion, injection of imaging exam. Discontinue saline lock post exam. If Pt. has a central line or IVAD, may access for administration according to line specific nursing protocol. Once exam is complete flush line and de-access according to line specific nursing protocol in the CT contrast administration guidelines link. 1 Each 0 enteric contrast (will be provided with radiology test) For CT CHESTABD/PEL W IVCON Routine order Administer, As Directed One Time Only, via Oral, Rectal, both Oral and Rectal, Enteric Tube, Stoma or Indwelling Catheter, Enteric Contrast as designated per enteric contrast guidelines 1 Each 0 No current facility-administered medications for this visit. Allergies ALLERGIES No Known Allergies Review of systems Review of systems is negative except that noted in HPI. Physical exam Vitals BP 106/85 Pulse 76 Temp 36 ?C (96.8 ?F) (Temporal) Resp 20 Ht 168.9 cm (5' 6.5) Wt 59.6 kg (131 lb 6.3 oz) LMP 04/18/2024 (Exact Date) SpO2 99% BMI 20.89 kg/m? ECOG PERFORMANCE STATUS: 0- Fully active, able to carry on all pre-disease (more content not included)... Normal [facility] C. trachomatis+N. gonorrhoea e DNA YAS+probe Ql (Unsp spec)on 04-23-2024 C. trachomatis rRNA YAS+probe Ql (Unsp spec) Not detected Normal Not detected [facility] Comment on above: Order Comment: Speci men Type: BLOOD SPECIMEN Ordering Facility: [facility] Address: [address] [place] [address] Performed By: #### 2 4325-3, 46143-0 #### [facility] [id number] [address] [place] [address] [place] N. gonorrhoeae rRNA YAS+probe Ql (Unsp spec) Not detected Normal Not detected [facility] Comment on above: Order Comment: Speci men Type: BLOOD SPECIMEN Ordering Facility: [facility] Address: [address] [place] [address] Performed By: #### 2 4325-3, 07098-7 #### [facility] CLIA [id number] [address] [place] [address] [place] CNOVon 04-23-2024 CNOV Office Visit (OBGYWM ) ADRIANE AVALOS ([id number]) 1985 F Date Time Provider Department 04/23/24 3:30 PM LISA CARNEY OBGYWM During your visit today, we recorded the following information about you: Blood pressure Weight Height Last Period 120/70 62.3 kg 1.676 m 04/18/24 Lisa Carney APRN.OPERATIONS OFFICER 04/23/2024 4:15 PM Signed Patient declined customs and border protection inspector. Adriane is a 39 year old who presents for an annual gynecologic exam without complaints. LMP 04/18/2024 Menses: cycles every 25 days and 5-6 days of flow. Contraception: progesterone only HPV vaccine: No Last Pap: 05/20/2018 normal HPV: 05/20/2018 negative History of abnormal pap: No Last mammogram: 2018normal OB History Gravida5 Para3 Term2 Preterm1 AB2 Living3 SAB2 IAB0 Ectopic0 Multiple0 Live Births3 Dean Of Admissions History LMP: 04/18/2024 (Exact Date), Having periods Age at Menarche: 14 Age at First : Age at Menopause: Dean Of Admissions History Comments: Sexual Activity: Yes; Male Contraception: Vasectomy, Pill Menstrual Tracking History Flowsheet Row Office Visit from 04/23/2024 in OB/Gynecology Period Cycle (Days) 28 Period Duration (Days) 6 Menstrual Flow Moderate PAST MEDICAL HISTORY Diagnosis Date Anemia GERD (gastroesophageal reflux disease) History of pre-eclampsia kidney stones Known medical problems melanoma back depression PAST SURGICAL HISTORY Procedure Laterality Date IUD INSERTION (OUTCOMES MANAGER DEPT)_*FL 01/29/2008 Mirena IUD REMOVAL (OUTCOMES MANAGER DEPT)_*FL 06/28/2008 Mirena KIDNEY STONE SURGERY HX 09/2021 PAST SURGICAL HISTORY OF 2024 skin lesion biopsy, back FAMILY HISTORY Problem Relation Age of Onset Breast Cancer Maternal Grandmother 75 Melanoma Maternal Grandmother Diabetes Maternal Grandfather Heart Maternal Grandfather [place]- SOCIAL HISTORY Social History Tobacco Use Smoking status: Every Day Current packs/day: 0.50 Average packs/day: 0.5 packs/day for 0.2 years (0.1 ttl pk-yrs) Types: Cigarettes Start date: 06/02/2009 Last attempt to quit: 06/03/2015 Smokeless tobacco: Never Vaping Use Vaping status: Never Used Substance Use Topics Alcohol use: Not Currently Comment: OCCASIONALLY Drug use: Never REVIEW OF SYSTEMS Abdomen: No abdominal pain, nausea, vomiting, diarrhea, or constipation. No bloating, early satiety, indigestion, or increased flatulence. Bladder: No dysuria, gross hematuria, urinary frequency, urinary urgency, +stress incontinence. Breast: No breast lumps, nipple d/c, overlying skin changes, redness or skin retraction. Allergies and current medication updated:Yes SENSITIVE EXAM: The sensitive examination was discussed with the Patient or Patient's Authorized Senior Quality Control Inspector. As applicable, any other physician, advance practice provider, medical student, or other health professional student that will be observing or involved in the sensitive examination for educational or training purposes was discussed with the Patient or Authorized Senior Quality Control Inspector. The Patient or Authorized Senior Quality Control Inspector has agreed to proceed with the sensitive examination. (Sensitive examination includes inspection and/or palpation of the breasts, pelvis, prostate and anorectal regions). EXAM: BP 120/70 Ht 5' 6 (1.68m) Wt 137 lb 6.4 oz (62.3kg) LMP 04/18/2024 BMI 22.19 kg/(m2). GENERAL: pleasant, female in no apparent distress HEENT: Normocephalic, atraumatic, mucus membranes moist, and no lesions DERMATOLOGY: Normal, without lesions, non-icteric, and non-hirsute BREAST: soft, non-tender, symmetric, no dominant mass, normal nipple-areolar complex, no lymphadenopathy, and no nipple discharge CHEST: Normal inspiratory effort ABDOMEN: soft, non-tender, and no masses PELVIC: external genitalia normal, normal Bartholin's glands, urethra, Haven's glands, no vulvar lesions, no cervical lesions, good vaginal support, physiologic discharge present, normal appearing perineal body and perianal region BIMANUAL: uterus normal size, shape and consistency, no adnexal masses, and non-tender RECTOVAGINAL: deferred. NEURO: alert and oriented x3,exam grossly non-focal EXTREMITIES: normal ASSESSMENT/PLAN: 1) Health maintenance: Pap/HPV up to date. Mammogram starting age 40. Nutrition, exercise and routine health maintenance exams reviewed. Colon cancer screening: start at age 45 2) Contraception: Progestin - only contraceptives Contraceptive options reviewed and information provided. Mirena order filed 3) STD screening: Accepted STD check for Gonorrhea and Chlamydia. 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 Normal [facility] CT ABD/PEL W IVCONon 025 CT ABD/PEL W IVCON * * *Final Report* * * DATE OF EXAM: Apr 23 2024 11:09AM [facility] 0530 - CT ABD/PEL W IVCON / PROCEDURE REASON: 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) * * * * Physician Interpretation * * * * EXAMINATION: CT CHEST WITH IV CONTRAST AND CT ABDOMEN AND PELVIS WITH IV CONTRAST CLINICAL HISTORY: Malignant melanoma TECHNIQUE: CT of the chest from the thoracic inlet to the upper abdomen was performed following administration of IV contrast. CT of the abdomen and pelvis was performed using standard technique. Contrast: IV: 100 ml of Omnip[address] CT Radiation dose: Integrated Dose-length product (DLP) for this visit = 606 mGy*cm. CT Dose Reduction Employed: Automated exposure control(AEC) and iterative recon RESULT: Limitations: None. Chest: Lines, tubes, and devices: None. Lung parenchyma and pleura: There is no effusion. There is dependent atelectasis. Mild biapical fibrosis. There is an approximately 3 mm subpleural nodule within the right apex (series 7, image #15). There is an approximately 5 mm nodule within the apicoposterior segment right upper lobe. There is an approximately 3 mm subpleural nodule within the left lung base (series 7, image #163). Partially calcified nodule is seen in the left lower lobe, measuring approximately 9 mm with surrounding satellite pulmonary nodules, likely related to granulomatous infection (series 7, image #126). There is no pneumothorax or endobronchial lesion. No convincing CT evidence for pneumonia. Thoracic inlet, heart, and mediastinum: Surgical clips are seen within both axilla from prior axillary lymph node dissection. There are associated fluid collections seen within both axilla, measuring 3.1 x 1.3 cm within the right adnexa (series 7, image #35) and 1.8 x 1.3 cm within the left adnexa (series 7, image #42). Consider postoperative hematomas or seromas. Otherwise, there are no pathologically enlarged axillary, mediastinal, or hilar lymph nodes. Calcified left hilar lymph nodes from remote granulomatous disease. The heart is normal in size. There is no significant pericardial effusion. Abdomen/pelvis: Liver: Focal fatty change is seen within the liver, adjacent to the falciform ligament. There is no obvious focal discrete hepatic mass. Biliary: The gallbladder is relatively collapsed. There is no biliary dilation. Spleen: No mass. No splenomegaly. Pancreas: There is no obvious focal discrete pancreatic mass or pancreatic ductal dilation. Adrenals:No mass. Kidneys: There is no hydronephrosis or perinephric fluid collection. Nonobstructing left nephrolithiasis. GI tract: Nonspecific wall thickening of the stomach likely relates to underdistention. There are no dilated loops of bowel to suggest obstruction. Apparent wall thickening of multiple loops of colon is felt to relate to underdistention. Lymph nodes: Prominent retroperitoneal lymph nodes are seen, measuring less than 1 cm in short axis dimension. For example, a left periaortic lymph node measures 0.9 cm in short axis dimension (series 8, image #46). Continued interval surveillance is recommended. Mesentery/Peritoneum: No abdominal ascites. Vasculature: No abdominal aortic aneurysm. Pelvis: There is an approximately 4.1 x 3.6 cm left adnexal cyst (series 8, image #111). Nonspecific wall thickening of the stomach likely relates to underdistention. Phleboliths are seen within the pelvis. Prominent, less than 1 cm pelvic lymph nodes are likely reactive. Bones/Soft Tissues: Mild scoliosis of the spine. No destructive bony lesion. Vacuum phenomena is seen involving sacroiliac joint spaces, bilaterally, with associated sclerosis. A few presumed bone islands are seen within the osseous structures. IMPRESSION: 1. Surgical clips are seen within both axilla from prior axillary lymph node dissection. Associated fluid collections are seen within both axilla, measuring up to 3.1 cm in short axis dimension. Consider postoperative hematomas or seromas. 2. No bulmaro lymphadenopathy is seen within the chest. 3. Indeterminate subcentimeter pulmonary nodules, measuring up to 5 mm in size. Additionally, there is a partially calcified nodule left lower lobe, measuring approximately 9 mm, surrounding tree-in-bud type satellite nodules, which may relate to prior granulomatous infection. 4. No convincing CT evidence for metastatic disease within the abdomen or pelvis. 5. Prominent retroperitoneal lymph nodes, measuring less than 1 cm in short axis dimension. 6. Nonobstructing left nephrolithiasis. 7. 4.1 cm left adnexal cyst. Brusher Hand: [facility] Transcribe Date/Time: Apr 23 2024 1:04P Dictated by : AROLDO SHIRLEY MD This examination was interpreted and the report reviewed and electronically signed by: AROLDO SHIRLEY MD on Apr 23 2024 1:20PM EST [id number] Normal [facility] CT Abdomen and Pelvis W cont rast Solange 04-23-2024 * * *Final Report* * * DATE OF EXAM: Apr 23 2024 11:09AM [facility] 0530 - CT ABD/PEL W IVCON / PROCEDURE REASON: 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) * * * * Physician Interpretation * * * * EXAMINATION: CT CHEST WITH IV CONTRAST AND CT ABDOMEN AND PELVIS WITH IV CONTRAST CLINICAL HISTORY: Malignant melanoma TECHNIQUE: CT of the chest from the thoracic inlet to the upper abdomen was performed following administration of IV contrast. CT of the abdomen and pelvis was performed using standard technique. Contrast: IV: 100 ml of Omnipaque 350 CT Radiation dose: Integrated Dose-length product (DLP) for this visit = 606 mGy*cm. CT Dose Reduction Employed: Automated exposure control(AEC) and iterative recon RESULT: Limitations: None. Chest: Lines, tubes, and devices: None. Lung parenchyma and pleura: There is no effusion. There is dependent atelectasis. Mild biapical fibrosis. There is an approximately 3 mm subpleural nodule within the right apex (series 7, image #15). There is an approximately 5 mm nodule within the apicoposterior segment right upper lobe. There is an approximately 3 mm subpleural nodule within the left lung base (series 7, image #163). Partially calcified nodule is seen in the left lower lobe, measuring approximately 9 mm with surrounding satellite pulmonary nodules, likely related to granulomatous infection (series 7, image #126). There is no pneumothorax or endobronchial lesion. No convincing CT evidence for pneumonia. Thoracic inlet, heart, and mediastinum: Surgical clips are seen within both axilla from prior axillary lymph node dissection. There are associated fluid collections seen within both axilla, measuring 3.1 x 1.3 cm within the right adnexa (series 7, image #35) and 1.8 x 1.3 cm within the left adnexa (series 7, image #42). Consider postoperative hematomas or seromas. Otherwise, there are no pathologically enlarged axillary, mediastinal, or hilar lymph nodes. Calcified left hilar lymph nodes from remote granulomatous disease. The heart is normal in size. There is no significant pericardial effusion. Abdomen/pelvis: Liver: Focal fatty change is seen within the liver, adjacent to the falciform ligament. There is no obvious focal discrete hepatic mass. Biliary: The gallbladder is relatively collapsed. There is no biliary dilation. Spleen: No mass. No splenomegaly. Pancreas: There is no obvious focal discrete pancreatic mass or pancreatic ductal dilation. Adrenals:No mass. Kidneys: There is no hydronephrosis or perinephric fluid collection. Nonobstructing left nephrolithiasis. GI tract: Nonspecific wall thickening of the stomach likely relates to underdistention. There are no dilated loops of bowel to suggest obstruction. Apparent wall thickening of multiple loops of colon is felt to relate to underdistention. Lymph nodes: Prominent retroperitoneal lymph nodes are seen, measuring less than 1 cm in short axis dimension. For example, a left periaortic lymph node measures 0.9 cm in short axis dimension (series 8, image #46). Continued interval surveillance is recommended. Mesentery/Peritoneum: No abdominal ascites. Vasculature: No abdominal aortic aneurysm. Pelvis: There is an approximately 4.1 x 3.6 cm left adnexal cyst (series 8, image #111). Nonspecific wall thickening of the stomach likely relates to underdistention. Phleboliths are seen within the pelvis. Prominent, less than 1 cm pelvic lymph nodes are likely reactive. Bones/Soft Tissues: Mild scoliosis of the spine. No destructive bony lesion. Vacuum phenomena is seen involving sacroiliac joint spaces, bilaterally, with associated sclerosis. A few presumed bone islands are seen within the osseous structures. DIVISION OF RADIOLOGY Provider, [facility] - 04/23/2024 * * *Final Report* * * DATE OF EXAM: Apr 23 2024 11:09AM [facility] 7162 - CT ABD/PEL W IVCON / PROCEDURE REASON: 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) * * * * Physician Interpretation * * * * EXAMINATION: CT CHEST WITH IV CONTRAST AND CT ABDOMEN AND PELVIS WITH IV CONTRAST CLINICAL HISTORY: Malignant melanoma TECHNIQUE: CT of the chest from the thoracic inlet to the upper abdomen was performed following administration of IV contrast. CT of the abdomen and pelvis was performed using standard technique. Contrast: IV: 100 ml of Omnipaque 350 CT Radiation dose: Integrated Dose-length product (DLP) for this visit = 606 mGy*cm. CT Dose Reduction Employed: Automated exposure control(AEC) and iterative recon RESULT: Limitations: None. Chest: Lines, tubes, and devices: None. Lung parenchyma and pleura: There is no effusion. There is dependent atelectasis. Mild biapical fibrosis. There is an approximately 3 mm subpleural nodule within the right apex (series 7, image #15). There is an approximately 5 mm nodule within the apicoposterior segment right upper lobe. There is an approximately 3 mm subpleural nodule within the left lung base (series 7, image #163). Partially calcified nodule is seen in the left lower lobe, measuring approximately 9 mm with surrounding satellite pulmonary nodules, likely related to granulomatous infection (series 7, image #126). There is no pneumothorax or endobronchial lesion. No convincing CT evidence for pneumonia. Thoracic inlet, heart, and mediastinum: Surgical clips are seen within both axilla from prior axillary lymph node dissection. There are associated fluid collections seen within both axilla, measuring 3.1 x 1.3 cm within the right adnexa (series 7, image #35) and 1.8 x 1.3 cm within the left adnexa (series 7, image #42). Consider postoperative hematomas or seromas. Otherwise, there are no pathologically enlarged axillary, mediastinal, or hilar lymph nodes. Calcified left hilar lymph nodes from remote granulomatous disease. The heart is normal in size. There is no significant pericardial effusion. Abdomen/pelvis: Liver: Focal fatty change is seen within the liver, adjacent to the falciform ligament. There is no obvious focal discrete hepatic mass. Biliary: The gallbladder is relatively collapsed. There is no biliary dilation. Spleen: No mass. No splenomegaly. Pancreas: There is no obvious focal discrete pancreatic mass or pancreatic ductal dilation. Adrenals:No mass. Kidneys: There is no hydronephrosis or perinephric fluid collection. Nonobstructing left nephrolithiasis. GI tract: Nonspecific wall thickening of the stomach likely relates to underdistention. There are no dilated loops of bowel to suggest obstruction. Apparent wall thickening of multiple loops of colon is felt to relate to underdistention. Lymph nodes: Prominent retroperitoneal lymph nodes are seen, measuring less than 1 cm in short axis dimension. For example, a left periaortic lymph node measures 0.9 cm in short axis dimension (series 8, image #46). Continued interval surveillance is recommended. Mesentery/Peritoneum: No abdominal ascites. Vasculature: No abdominal aortic aneurysm. Pelvis: There is an approximately 4.1 x 3.6 cm left adnexal cyst (series 8, image #111). Nonspecific wall thickening of the stomach likely relates to underdistention. Phleboliths are seen within the pelvis. Prominent, less than 1 cm pelvic lymph nodes are likely reactive. Bones/Soft Tissues: Mild scoliosis of the spine. No destructive bony lesion. Vacuum phenomena is seen involving sacroiliac joint spaces, bilaterally, with associated sclerosis. A few presumed bone islands are seen within the osseous structures. IMPRESSION IMPRESSION: 1. Surgical clips are seen within both axilla from prior axillary lymph node dissection. Associated fluid collections are seen within both axilla, measuring up to 3.1 cm in short axis dimension. Consider postoperative hematomas or seromas. 2. No bulmaro lymphadenopathy is seen within the chest. 3. Indeterminate subcentimeter pulmonary nodules, measuring up to 5 mm in size. Additionally, there is a partially calcified nodule left lower lobe, measuring approximately 9 mm, surrounding tree-in-bud type satellite nodules, which may relate to prior granulomatous infection. 4. No convincing CT evidence for metastatic disease within the abdomen or pelvis. 5. Prominent retroperitoneal lymph nodes, measuring less than 1 cm in short axis dimension. 6. Nonobstructing left nephrolithiasis. 7. 4.1 cm left adnexal cyst. Brusher Hand: BERNADINE Transcribe Date/Time: Apr 23 2024 1:04P Dictated by : AROLDO SHIRLEY MD This examination was interpreted and the report reviewed an (more content not included)... [facility] Radiology Study observation (narrative) [facility] CT CHEST W IVCONon 5 CT CHEST W IVCON * * *Final Report* * * DATE OF EXAM: Apr 23 2024 11:09AM [facility] 0539 - CT CHEST W IVCON / PROCEDURE REASON: 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) * * * * Physician Interpretation * * * * EXAMINATION: CT CHEST WITH IV CONTRAST AND CT ABDOMEN AND PELVIS WITH IV CONTRAST CLINICAL HISTORY: Malignant melanoma TECHNIQUE: CT of the chest from the thoracic inlet to the upper abdomen was performed following administration of IV contrast. CT of the abdomen and pelvis was performed using standard technique. Contrast: IV: 100 ml of Omnipaque 350 CT Radiation dose: Integrated Dose-length product (DLP) for this visit = 606 mGy*cm. CT Dose Reduction Employed: Automated exposure control(AEC) and iterative recon RESULT: Limitations: None. Chest: Lines, tubes, and devices: None. Lung parenchyma and pleura: There is no effusion. There is dependent atelectasis. Mild biapical fibrosis. There is an approximately 3 mm subpleural nodule within the right apex (series 7, image #15). There is an approximately 5 mm nodule within the apicoposterior segment right upper lobe. There is an approximately 3 mm subpleural nodule within the left lung base (series 7, image #163). Partially calcified nodule is seen in the left lower lobe, measuring approximately 9 mm with surrounding satellite pulmonary nodules, likely related to granulomatous infection (series 7, image #126). There is no pneumothorax or endobronchial lesion. No convincing CT evidence for pneumonia. Thoracic inlet, heart, and mediastinum: Surgical clips are seen within both axilla from prior axillary lymph node dissection. There are associated fluid collections seen within both axilla, measuring 3.1 x 1.3 cm within the right adnexa (series 7, image #35) and 1.8 x 1.3 cm within the left adnexa (series 7, image #42). Consider postoperative hematomas or seromas. Otherwise, there are no pathologically enlarged axillary, mediastinal, or hilar lymph nodes. Calcified left hilar lymph nodes from remote granulomatous disease. The heart is normal in size. There is no significant pericardial effusion. Abdomen/pelvis: Liver: Focal fatty change is seen within the liver, adjacent to the falciform ligament. There is no obvious focal discrete hepatic mass. Biliary: The gallbladder is relatively collapsed. There is no biliary dilation. Spleen: No mass. No splenomegaly. Pancreas: There is no obvious focal discrete pancreatic mass or pancreatic ductal dilation. Adrenals:No mass. Kidneys: There is no hydronephrosis or perinephric fluid collection. Nonobstructing left nephrolithiasis. GI tract: Nonspecific wall thickening of the stomach likely relates to underdistention. There are no dilated loops of bowel to suggest obstruction. Apparent wall thickening of multiple loops of colon is felt to relate to underdistention. Lymph nodes: Prominent retroperitoneal lymph nodes are seen, measuring less than 1 cm in short axis dimension. For example, a left periaortic lymph node measures 0.9 cm in short axis dimension (series 8, image #46). Continued interval surveillance is recommended. Mesentery/Peritoneum: No abdominal ascites. Vasculature: No abdominal aortic aneurysm. Pelvis: There is an approximately 4.1 x 3.6 cm left adnexal cyst (series 8, image #111). Nonspecific wall thickening of the stomach likely relates to underdistention. Phleboliths are seen within the pelvis. Prominent, less than 1 cm pelvic lymph nodes are likely reactive. Bones/Soft Tissues: Mild scoliosis of the spine. No destructive bony lesion. Vacuum phenomena is seen involving sacroiliac joint spaces, bilaterally, with associated sclerosis. A few presumed bone islands are seen within the osseous structures. IMPRESSION: 1. Surgical clips are seen within both axilla from prior axillary lymph node dissection. Associated fluid collections are seen within both axilla, measuring up to 3.1 cm in short axis dimension. Consider postoperative hematomas or seromas. 2. No bulmaro lymphadenopathy is seen within the chest. 3. Indeterminate subcentimeter pulmonary nodules, measuring up to 5 mm in size. Additionally, there is a partially calcified nodule left lower lobe, measuring approximately 9 mm, surrounding tree-in-bud type satellite nodules, which may relate to prior granulomatous infection. 4. No convincing CT evidence for metastatic disease within the abdomen or pelvis. 5. Prominent retroperitoneal lymph nodes, measuring less than 1 cm in short axis dimension. 6. Nonobstructing left nephrolithiasis. 7. 4.1 cm left adnexal cyst. Brusher Hand: BERNADINE Transcribe Date/Time: Apr 23 2024 1:04P Dictated by : AROLDO SHIRLEY MD This examination was interpreted and the report reviewed and electronically signed by: AROLDO SHIRLEY MD on Apr 23 2024 1:20PM EST [id number] N Normal [facility] CT Chest W contrast [place] * * *Final Report* * * DATE OF EXAM: Apr 23 2024 11:09AM [facility] 0539 - CT CHEST W IVCON / PROCEDURE REASON: 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) * * * * Physician Interpretation * * * * EXAMINATION: CT CHEST WITH IV CONTRAST AND CT ABDOMEN AND PELVIS WITH IV CONTRAST CLINICAL HISTORY: Malignant melanoma TECHNIQUE: CT of the chest from the thoracic inlet to the upper abdomen was performed following administration of IV contrast. CT of the abdomen and pelvis was performed using standard technique. Contrast: IV: 100 ml of Omnipaque 350 CT Radiation dose: Integrated Dose-length product (DLP) for this visit = 606 mGy*cm. CT Dose Reduction Employed: Automated exposure control(AEC) and iterative recon RESULT: Limitations: None. Chest: Lines, tubes, and devices: None. Lung parenchyma and pleura: There is no effusion. There is dependent atelectasis. Mild biapical fibrosis. There is an approximately 3 mm subpleural nodule within the right apex (series 7, image #15). There is an approximately 5 mm nodule within the apicoposterior segment right upper lobe. There is an approximately 3 mm subpleural nodule within the left lung base (series 7, image #163). Partially calcified nodule is seen in the left lower lobe, measuring approximately 9 mm with surrounding satellite pulmonary nodules, likely related to granulomatous infection (series 7, image #126). There is no pneumothorax or endobronchial lesion. No convincing CT evidence for pneumonia. Thoracic inlet, heart, and mediastinum: Surgical clips are seen within both axilla from prior axillary lymph node dissection. There are associated fluid collections seen within both axilla, measuring 3.1 x 1.3 cm within the right adnexa (series 7, image #35) and 1.8 x 1.3 cm within the left adnexa (series 7, image #42). Consider postoperative hematomas or seromas. Otherwise, there are no pathologically enlarged axillary, mediastinal, or hilar lymph nodes. Calcified left hilar lymph nodes from remote granulomatous disease. The heart is normal in size. There is no significant pericardial effusion. Abdomen/pelvis: Liver: Focal fatty change is seen within the liver, adjacent to the falciform ligament. There is no obvious focal discrete hepatic mass. Biliary: The gallbladder is relatively collapsed. There is no biliary dilation. Spleen: No mass. No splenomegaly. Pancreas: There is no obvious focal discrete pancreatic mass or pancreatic ductal dilation. Adrenals:No mass. Kidneys: There is no hydronephrosis or perinephric fluid collection. Nonobstructing left nephrolithiasis. GI tract: Nonspecific wall thickening of the stomach likely relates to underdistention. There are no dilated loops of bowel to suggest obstruction. Apparent wall thickening of multiple loops of colon is felt to relate to underdistention. Lymph nodes: Prominent retroperitoneal lymph nodes are seen, measuring less than 1 cm in short axis dimension. For example, a left periaortic lymph node measures 0.9 cm in short axis dimension (series 8, image #46). Continued interval surveillance is recommended. Mesentery/Peritoneum: No abdominal ascites. Vasculature: No abdominal aortic aneurysm. Pelvis: There is an approximately 4.1 x 3.6 cm left adnexal cyst (series 8, image #111). Nonspecific wall thickening of the stomach likely relates to underdistention. Phleboliths are seen within the pelvis. Prominent, less than 1 cm pelvic lymph nodes are likely reactive. Bones/Soft Tissues: Mild scoliosis of the spine. No destructive bony lesion. Vacuum phenomena is seen involving sacroiliac joint spaces, bilaterally, with associated sclerosis. A few presumed bone islands are seen within the osseous structures. DIVISION OF RADIOLOGY Provider, [facility] - 04/23/2024 * * *Final Report* * * DATE OF EXAM: Apr 23 2024 11:09AM [facility] 0539 - CT CHEST W IVCON / PROCEDURE REASON: 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) * * * * Physician Interpretation * * * * EXAMINATION: CT CHEST WITH IV CONTRAST AND CT ABDOMEN AND PELVIS WITH IV CONTRAST CLINICAL HISTORY: Malignant melanoma TECHNIQUE: CT of the chest from the thoracic inlet to the upper abdomen was performed following administration of IV contrast. CT of the abdomen and pelvis was performed using standard technique. Contrast: IV: 100 ml of Omnipaque 350 CT Radiation dose: Integrated Dose-length product (DLP) for this visit = 606 mGy*cm. CT Dose Reduction Employed: Automated exposure control(AEC) and iterative recon RESULT: Limitations: None. Chest: Lines, tubes, and devices: None. Lung parenchyma and pleura: There is no effusion. There is dependent atelectasis. Mild biapical fibrosis. There is an approximately 3 mm subpleural nodule within the right apex (series 7, image #15). There is an approximately 5 mm nodule within the apicoposterior segment right upper lobe. There is an approximately 3 mm subpleural nodule within the left lung base (series 7, image #163). Partially calcified nodule is seen in the left lower lobe, measuring approximately 9 mm with surrounding satellite pulmonary nodules, likely related to granulomatous infection (series 7, image #126). There is no pneumothorax or endobronchial lesion. No convincing CT evidence for pneumonia. Thoracic inlet, heart, and mediastinum: Surgical clips are seen within both axilla from prior axillary lymph node dissection. There are associated fluid collections seen within both axilla, measuring 3.1 x 1.3 cm within the right adnexa (series 7, image #35) and 1.8 x 1.3 cm within the left adnexa (series 7, image #42). Consider postoperative hematomas or seromas. Otherwise, there are no pathologically enlarged axillary, mediastinal, or hilar lymph nodes. Calcified left hilar lymph nodes from remote granulomatous disease. The heart is normal in size. There is no significant pericardial effusion. Abdomen/pelvis: Liver: Focal fatty change is seen within the liver, adjacent to the falciform ligament. There is no obvious focal discrete hepatic mass. Biliary: The gallbladder is relatively collapsed. There is no biliary dilation. Spleen: No mass. No splenomegaly. Pancreas: There is no obvious focal discrete pancreatic mass or pancreatic ductal dilation. Adrenals:No mass. Kidneys: There is no hydronephrosis or perinephric fluid collection. Nonobstructing left nephrolithiasis. GI tract: Nonspecific wall thickening of the stomach likely relates to underdistention. There are no dilated loops of bowel to suggest obstruction. Apparent wall thickening of multiple loops of colon is felt to relate to underdistention. Lymph nodes: Prominent retroperitoneal lymph nodes are seen, measuring less than 1 cm in short axis dimension. For example, a left periaortic lymph node measures 0.9 cm in short axis dimension (series 8, image #46). Continued interval surveillance is recommended. Mesentery/Peritoneum: No abdominal ascites. Vasculature: No abdominal aortic aneurysm. Pelvis: There is an approximately 4.1 x 3.6 cm left adnexal cyst (series 8, image #111). Nonspecific wall thickening of the stomach likely relates to underdistention. Phleboliths are seen within the pelvis. Prominent, less than 1 cm pelvic lymph nodes are likely reactive. Bones/Soft Tissues: Mild scoliosis of the spine. No destructive bony lesion. Vacuum phenomena is seen involving sacroiliac joint spaces, bilaterally, with associated sclerosis. A few presumed bone islands are seen within the osseous structures. IMPRESSION IMPRESSION: 1. Surgical clips are seen within both axilla from prior axillary lymph node dissection. Associated fluid collections are seen within both axilla, measuring up to 3.1 cm in short axis dimension. Consider postoperative hematomas or seromas. 2. No bulmaro lymphadenopathy is seen within the chest. 3. Indeterminate subcentimeter pulmonary nodules, measuring up to 5 mm in size. Additionally, there is a partially calcified nodule left lower lobe, measuring approximately 9 mm, surrounding tree-in-bud type satellite nodules, which may relate to prior granulomatous infection. 4. No convincing CT evidence for metastatic disease within the abdomen or pelvis. 5. Prominent retroperitoneal lymph nodes, measuring less than 1 cm in short axis dimension. 6. Nonobstructing left nephrolithiasis. 7. 4.1 cm left adnexal cyst. Brusher Hand: BERNADINE Transcribe Date/Time: Apr 23 2024 1:04P Dictated by : AROLDO SHIRLEY MD This examination was interpreted and the report reviewed and (more content not included)... [facility] MR Brain WO and W contrast I VOrdered By: [facility] Provider on 04-23-2024 Interpretation and review of laboratory results Abnormal [facility] Radiology Result ACTIONABLE Abnormal [facility] Comment on above: This report contains an incidental or actionable finding. This finding may be a new finding separate from the reason your provider ordered the imaging test or it may be an already known finding that needs additional or continued follow-up. Because of this incidental or actionable finding, you may need another test (imaging or a different type of test). Please contact your provider for the next steps. [facility] MR Brain WO and W contrast I Von 04-23-2024 IMPRESSION: 1. Age expected MRI brain. 2. No MR imaging evidence for intracranial metastasis disease. 3. Numerous incompletely evaluated cervical lymph nodes. ACTIONABLE RESULT: FOLLOW-UP Acuity: Actionable Findings: Head and Neck-ENT Routing Code: HNI_3 Recommendation: Unlisted Recommendation (see report) Time Frame: At the discretion of the clinical team. COMMUNICATION: Results will be communicated with the ordering provider via [employer] staff message or phone message by [facility] [employer] [facility] within 2 business days of report finalization. --END OF FINDING-- Brusher Hand: PSCMicah Transcribe Date/Time: Apr 23 2024 11:38A Dictated by : MELINA DONAHUE MD This examination was interpreted and the report reviewed and electronically signed by: MELINA DONHAUE MD on Apr 23 2024 11:41AM [facility] DIVISION OF RADIOLOGY * * *Final Report* * * DATE OF EXAM: Apr 23 2024 11:33AM [facility] 0295 - MRI BRAIN WO/W IVCON / PROCEDURE REASON: 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) * * * * Physician Interpretation * * * * COMPARISONS: None. HISTORY: Malignant melanoma. TECHNIQUE: MRI brain without and with contrast. MQ: MRBWOW_2 CONTRAST: 6.5 mL Elucirem IV. RESULT: MRI BRAIN: Acute abnormality: None. No abnormal signal, mass or enhancement that would raise concern for intracranial metastatic disease on MR imaging. On contrast no abnormal enhancement in brain or meninges. No restricted diffusion concerning for acute ischemia. No susceptibility concerning for acute hemorrhage. Age expected sulci, gyri, ventricles, CSF spaces, brain, bones & skull base. No mass effect or collections. On contrast no abnormal enhancement in brain or meninges. Incompletely evaluated cervical region numerous lymph nodes which are of unclear significance & may be inflammatory in nature, however, should be further worked up by clinical exam and if necessary CT neck for characterization. These are only partially visualized on the current MRI. DIVISION OF RADIOLOGY Provider, [facility] - 04/23/2024 * * *Final Report* * * DATE OF EXAM: Apr 23 2024 11:33AM [facility] 0295 - MRI BRAIN WO/W IVCON / PROCEDURE REASON: 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) * * * * Physician Interpretation * * * * COMPARISONS: None. HISTORY: Malignant melanoma. TECHNIQUE: MRI brain without and with contrast. MQ: MRBWOW_2 CONTRAST: 6.5 mL Elucirem IV. RESULT: MRI BRAIN: Acute abnormality: None. No abnormal signal, mass or enhancement that would raise concern for intracranial metastatic disease on MR imaging. On contrast no abnormal enhancement in brain or meninges. No restricted diffusion concerning for acute ischemia. No susceptibility concerning for acute hemorrhage. Age expected sulci, gyri, ventricles, CSF spaces, brain, bones & skull base. No mass effect or collections. On contrast no abnormal enhancement in brain or meninges. Incompletely evaluated cervical region numerous lymph nodes which are of unclear significance & may be inflammatory in nature, however, should be further worked up by clinical exam and if necessary CT neck for characterization. These are only partially visualized on the current MRI. IMPRESSION IMPRESSION: 1. Age expected MRI brain. 2. No MR imaging evidence for intracranial metastasis disease. 3. Numerous incompletely evaluated cervical lymph nodes. ACTIONABLE RESULT: FOLLOW-UP Acuity: Actionable Findings: Head and Neck-ENT Routing Code: HNI_3 Recommendation: Unlisted Recommendation (see report) Time Frame: At the discretion of the clinical team. COMMUNICATION: Results will be communicated with the ordering provider via [employer] staff message or phone message by [facility] within 2 business days of report finalization. --END OF FINDING-- Brusher Hand: BERNADINE Transcribe Date/Time: Apr 23 2024 11:38A Dictated by : MELINA DONAHUE MD This examination was interpreted and the report reviewed and electronically signed by: MELINA DONAHUE MD on Apr 23 2024 11:41AM [facility] MRI BRAIN WO/W IVCONon 04-23 MRI BRAIN WO/W IVCON * * *Final Report* * * DATE OF EXAM: Apr 23 2024 11:33AM [facility] 0295 - MRI BRAIN WO/W IVCON / PROCEDURE REASON: 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) * * * * Physician Interpretation * * * * COMPARISONS: None. HISTORY: Malignant melanoma. TECHNIQUE: MRI brain without and with contrast. MQ: MRBWOW_2 CONTRAST: 6.5 mL Elucirem IV. RESULT: MRI BRAIN: Acute abnormality: None. No abnormal signal, mass or enhancement that would raise concern for intracranial metastatic disease on MR imaging. On contrast no abnormal enhancement in brain or meninges. No restricted diffusion concerning for acute ischemia. No susceptibility concerning for acute hemorrhage. Age expected sulci, gyri, ventricles, CSF spaces, brain, bones and skull base. No mass effect or collections. On contrast no abnormal enhancement in brain or meninges. Incompletely evaluated cervical region numerous lymph nodes which are of unclear significance and may be inflammatory in nature, however, should be further worked up by clinical exam and if necessary CT neck for characterization. These are only partially visualized on the current MRI. IMPRESSION: 1. Age expected MRI brain. 2. No MR imaging evidence for intracranial metastasis disease. 3. Numerous incompletely evaluated cervical lymph nodes. ACTIONABLE RESULT: FOLLOW-UP Acuity: Actionable Findings: Head and Neck-ENT Routing Code: HNI_3 Recommendation: Unlisted Recommendation (see report) Time Frame: At the discretion of the clinical team. COMMUNICATION: Results will be communicated with the ordering provider via [employer] staff message or phone message by [facility] within 2 business days of report finalization. --END OF FINDING-- Brusher Hand: BERNADINE Transcribe Date/Time: Apr 23 2024 11:38A Dictated by : MELINA DONAHUE MD This examination was interpreted and the report reviewed and electronically signed by: MELINA DONAHUE MD on Apr 23 2024 11:41AM EST [id number] ACTIONABLE Invalid Interpretation Code [facility] No Panel Informationon 04-23 IMPRESSION: 1. Surgical clips are seen within both axilla from prior axillary lymph node dissection. Associated fluid collections are seen within both axilla, measuring up to 3.1 cm in short axis dimension. Consider postoperative hematomas or seromas. 2. No bulmaro lymphadenopathy is seen within the chest. 3. Indeterminate subcentimeter pulmonary nodules, measuring up to 5 mm in size. Additionally, there is a partially calcified nodule left lower lobe, measuring approximately 9 mm, surrounding tree-in-bud type satellite nodules, which may relate to prior granulomatous infection. 4. No convincing CT evidence for metastatic disease within the abdomen or pelvis. 5. Prominent retroperitoneal lymph nodes, measuring less than 1 cm in short axis dimension. 6. Nonobstructing left nephrolithiasis. 7. 4.1 cm left adnexal cyst. Brusher Hand: BERNADINE Transcribe Date/Time: Apr 23 2024 1:04P Dictated by : AROLDO SHIRLEY MD This examination was interpreted and the report reviewed and electronically signed by: AROLDO SHIRLEY MD on Apr 23 2024 1:20PM [facility] RAD[facility] Radiology Study observation (narrative) [facility] No Panel InformationOrdered By: Ccf Provider on 04-23-2024 [facility] TRICHOMONAS VAGINALIS NAATon 04-23-2024 T. vaginalis DNA YAS+probe Ql (Unsp spec) Not detected Normal Not detected [facility] Comment on above: Order Comment: Speci men Type: BLOOD SPECIMEN [facility]ing Facility: [facility] Address: [address] [place] [address] Performed By: #### 2 4325-3, 98660-0 #### [facility] CLIA [id number] [address] [place] [address] CNOVon 04-14-2024 CNOV Office Visit (AGGENS3) BAILEYADRIANE ABDI ([id number]) 1985 F Date Time Provider Department 04/14/24 3:15 PM SANJUANITA RODARTE AGGENS3 During your visit today, we recorded the following information about you: Pulse Respiration Blood pressure Weight 68/minute 18/minute 116/72 68 kg Height 1.676 m Sanjuanita Rodarte MD 04/14/2024 4:23 PM Signed Sanjuanita Rodarte MD Surgical Oncology [address] [place] [address], [address] [place], [place] [phone] Name: Adriane Avalos Age: [age] year old Sex: Adriane Avalos : 1985 Referring Provider: No ref. provider found Subjective CHIEF COMPLAINT: Postop Melanoma ONCOLOGIC HISTORY: 03/03/24: Melanoma of upper back 04/03/24: WLE + SLNB, path: [id number] HISTORY OF PRESENT ILLNESS: Ms. Avalos is a 39 year old female who presents for postop follow up for history of melanoma. Date of Surgery:04/03/2024 Anatomic Location: Upper back Breslow Depth: 1.5mm Ulceration: No Mitosis: 1/mm2 Waldo Lymph Node Biopsy: Yes Number of positive SLN: +1/2 Largest deposit: 0.1mm I personally reviewed Tobacco Allergies Meds Problems Med Hx Surg Hx Fam Hx Objective PHYSICAL EXAM: BP 116/72 Pulse 68 Resp 18 Ht 5' 6 (1.68m) Wt 150 lb (68.0kg) LMP 03/26/2023 BMI 24.22 kg/(m2). Physical Exam Constitutional: Appearance: Normal appearance. She is normal weight. HENT: Head: Normocephalic and atraumatic. Eyes: Extraocular Movements: Extraocular movements intact. Cardiovascular: Rate and Rhythm: Normal rate. Pulmonary: Effort: Pulmonary effort is normal. No respiratory distress. Breath sounds: No stridor. Abdominal: General: Abdomen is flat. Palpations: Abdomen is soft. Musculoskeletal: General: Normal range of motion. Cervical back: Normal range of motion. Lymphadenopathy: Comments: Bilateral axillary seromas, no drainage Skin: General: Skin is warm and dry. Comments: Incisions well healing Neurological: General: No focal deficit present. Mental Status: She is alert and oriented to person, place, and time. Mental status is at baseline. Psychiatric: Mood and Affect: Mood normal. Behavior: Behavior normal. Thought Content: Thought content normal. Judgment: Judgment normal. DATA: Pathology Report: FINAL DIAGNOSIS A. Waldo lymph node, right axillary, excision: - Metastatic melanoma in one (1) lymph node (1), (see comment). - The metastatic deposit is 0.1 mm. - No extranodal extension is present. B. Waldo lymph node, left axillary, excision: - One (1) benign lymph node (0), (see comment). C. Skin, back, wide local excision: - Skin with scar formation, consistent with prior surgical procedure. - There is a small junctional nevus near to scar, completely excised. - No evidence of residual melanoma. Assessment/Plan Ms. Avalos is a 39 year old female with history of melanoma of upper back, s/p WLE and SLNB, recovering well but has developed a right axillary seroma -Seroma bilaterally in axilla. If continues to be bothersome, will have IR place seroma drain. -Discussed pathology results with her. Staging scans have been ordered. -Will discuss at Tumor Board in regard to adjuvant immunotherapy and call her with consensus recommendations after. -Follow up in 3 months with US of axilla. -Follow up [id number] with Dermatology -Sun protection recommendations discussed. Cancer Staging 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) Staging form: Melanoma of the Skin, AJCC 8th Edition - Pathologic stage from 04/03/2024: Stage IIIA (pT2a, pN1a, cM0) - Signed by Sanjuanita Rodarte MD on 04/13/2024 Sanjuanita Rodarte MD 04/14/2024 1622 Allergies As of Date: 04/14/2024 (No Known Allergies) Date Reviewed: 04/14/2024 Reviewed by: Sanjuanita Rodarte MD - Fully Assessed Reason for Visit: Post Op Follow Up [3947] Cmt: PO S/P WLE Melanoma Primary Visit Diagnosis: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) [C43.59] Order(s):US AXILLA ONLY LEFT [[id number]] Order #: [id number] FUTURE US AXILLA ONLY RIGHT [[id number]] Order #: [id number] FUTURE Prescriptions as of 04/14/2024 - iv contrast (will be provided with radiology test) CT Chest ABD/PEL-Inject, intravenously, once for 1 dose.No IV access, insert saline lock prior to the beginning of sedation, infusion, injection of imaging exam. Discontinue saline lock post exam. If Pt. has a central line or IVAD, may access for administration according to line specific nursing protocol. Once exam is complete flush line and de-access according to line specific nursing protocol in the CT contrast administration guidelines link. - Norethindrone, Contraceptive, (CANDICE) 0.35 mg tablet Take 1 tablet by mouth once daily. - albuterol HFA (PROAIR HFA) 90 mcg/actuation inhaler Inhale 2 Puffs as inst (more content not included)... Normal [facility] ANES POSTPROC EVALon 025 ANES POSTPROC EVAL HNO ID: [id number] Author: MANJIT PUCKETT MD Service: Anesthesiology Author Type: Anesthesiologist Type: Anesthesia Postprocedure Evaluation Filed: 04/03/2024 19:20 Note Text: POST ANESTHESIA EVALUATION NOTE : 1985 Procedure Summary Date: 04/03/24 Room / Location: [place] [address] [place] [address] OR Anesthesia Start: 1346 Anesthesia Stop: 1647 Procedures: WIDE LOCAL EXCISION OF BACK MELANOMA INTRAOPERATIVE ID OF SENTINEL LYMPH NODE(S) INCL'D INJECTION OF NON-RAD DYE WHEN PERFORMED EXCISION LYMPH NODE OPEN DEEP AXILLARY NODE (Bilateral: Axilla) Diagnosis: Malignant melanoma of back (HCC) (Malignant melanoma of back (HCC) [C43.59]) Surgeons: Sanjuanita Rodarte MD Responsible Provider: Manjit Puckett MD Anesthesia Type: general ASA Status: 2 Anesthesia Type: general Airway Type: ETT Last Vitals Vitals Value Taken Time BP 120/72 04/03/24 1810 Temp 36.1 ?C (97 ?F) 04/03/24 1810 HR SpO2 68 04/03/24 1812 Resp 23 04/03/24 1812 SpO2 100 % 04/03/24 1810 Vitals shown include unfiled device data. Post Anesthesia Patient Status Patient Evaluation: bedside. Anticipated Disposition: phase 2 then home. Neurological Status: aware and responsive. Pulmonary Status: breathing comfortably on room air Airway Control: returned to baseline unsupported. Cardiovascular Status: stable. Pain Management: clinically adequate - multimodal analgesia pain management approach Postoperative Hydration: acceptable. Intraoperative Events: no significant anesthesia events Post Operative Nausea/Vomiting Status: no significant post operative nausea or vomiting Recommendation: continue current plan of care. Anesthesia Observations No Documentation SIGNATURE: Manjit Puckett MD PATIENT NAME: Adriane Avalos DATE: April 03, 2024 TIME: 7:19 PM CSN: [id number] [facility] ANES PRE-OPon 04-03-2024 ANES PRE-OP HNO ID: [id number] Author: JULIO DEMARCO MD Service: Anesthesiology Author Type: Anesthesiologist Type: Anesthesia Preprocedure Evaluation Filed: 04/03/2024 12:58 Note Text: ANESTHESIOLOGY DAY OF SURGERY NOTE : 1985 Procedure Information Date/Time: 04/03/24 1230 Procedures: WIDE LOCAL EXCISION OF BACK MELANOMA INTRAOPERATIVE ID OF SENTINEL LYMPH NODE(S) INCL'D INJECTION OF NON-RAD DYE WHEN PERFORMED Location: [place] [facility] [place] Surgeons: Sanjuanita Rodarte MD Estimated body mass index is 24.21 kg/m? as calculated from the following: Height as of 03/26/24: 167.6 cm (5' 6). Weight as of 03/26/24: 68 kg (150 lb). Most recent hematocrit and potassium results: Hematocrit 36.9 11/23/2015 Other history: + tobacco - 1/2 ppd x 20 years Melanoma Relevant Problems GI (+) GERD (gastroesophageal reflux disease) NEURO-PSYCH (+) History of depression (+) History of toxemia of I - PHYSICAL EVALUATION AIRWAY Patient intubated: No. Tracheostomy tube not present Mallampati: II. TM distance: >3 FB. Neck ROM: full ROM without neurological symptoms. Mouth opening: adequate. Short neck: no. Thick neck: no DENTAL Dental findings: teeth intact. II - ANESTHESIA PLAN ASA Score: 2 Anesthetic Plan: general Airway type: ETT The patient is a current smoker. NPO Status: adequate Beta Rasta Monitoring Plan Monitoring plan: standard ASA. Post Procedure Analgesic Plan Postoperative analgesic plan: multimodal analgesia. Informed Consent Anesthetic risks, benefits, alternatives, personnel and consent discussed: yes. Patient / Responsible Democrat agrees to proceed: yes Patient / Surrogate agrees to blood products: blood products not planned Significant changes in the patient condition since the History and Physical, not otherwise documented in primary service progress note: no. Potential Anesthesia issues that may suggest increased risk of complications or contraindication to planned procedure: none. Vitals Value Taken Time BP 112/69 04/03/24 0910 Pulse 72 04/03/24 0910 Resp 16 04/03/24 0910 Temp 36.9 ?C (98.4 ?F) 04/03/24 0910 SpO2 99 % 04/03/24 0910 Facility-Administered Medications as of 04/03/2024 Medication Dose Route Frequency lidocaine (PF) 10 mg/mL (1 %) 1-2 mg injection (XYLOCAINE) 0.1-0.2 mL INTRADERMAL PRN NaCl 0.9% iv flush bag 20 mL INTRAVENOUS PRN [COMPLETED] acetaminophen 975 mg tab(s) (TYLENOL) 975 mg ORAL Pre-Op Once [COMPLETED] celecoxib 400 mg cap(s) (CeleBREX) 400 mg ORAL Pre-Op Once [COMPLETED] gabapentin 300 mg cap(s) (NEURONTIN) 300 mg ORAL Pre-Op Once Outpatient Medications as of 04/03/2024 Medication Sig Norethindrone, Contraceptive, (CANDICE) 0.35 mg tablet Take 1 tablet by mouth once daily. albuterol HFA (PROAIR HFA) 90 mcg/actuation inhaler Inhale 2 Puffs as instructed every 4 hours as needed for Wheezing/Shortness of Breath. I have interviewed and examined the patient. I have reviewed the medical record and/or the pre-anesthesia evaluation, pertinent labs, and test results. This contains updated information obtained within 48 hours of Surgery/Procedure. SIGNATURE: Julio Demarco MD PATIENT NAME: Adriane Avalos DATE: April 03, 2024 TIME: 12:28 PM CSN: [id number] Normal [facility] NM LYMPH NODE IMAGINGon NM LYMPH NODE IMAGING * * *Final Report* * * DATE OF EXAM: Apr 03 2024 8:15AM [facility] 0033 - NM LYMPH NODE IMAGING / PROCEDURE REASON: 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) * * * * Physician Interpretation * * * * EXAM: CUTANEOUS LYMPHOSCINTIGRAPHY HISTORY: 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) Preoperative sentinel lymph node mapping. TECHNIQUE: * The injection was performed by Dr. Rodarte, Patient identity verified by having them verbalize their name and date of . Injection site was verified with the electronic medical record, patient, and electroneurodiagnostic technologist prior to radiopharmaceutical administration. Safety time out was performed prior to injection and site was cleaned in usual sterile fashion. * 1.18 millicuries of filtered technetium-99m sulfur colloid were injected in 4 aliquots intradermally around the aforementioned skin lesion site. * Immediate dynamic images were acquired to confirm location. Subsequent static images were obtained. * Fused images created and sent to the imaging archive. RESULTS: Foci of activity in the right axillary, consistent with the sentinel lymph nodes. Additional possible left axillary lymph node Injection related activity in the mid to the back. IMPRESSION: Few sentinel lymph nodes in the right axilla. Additional possible lymph node in the left axilla. Brusher Hand: PSCB Transcribe Date/Time: Apr 03 2024 9:00A Dictated by : GIFTY PATTERSON MD This examination was interpreted and the report reviewed and electronically signed by: GIFTY PATTERSON MD on Apr 03 2024 9:04AM EST [id number] Normal [facility] NURSING PROGon 04-03-2024 NURSING PROG HNO ID: [id number] Author: MATTHEW TEAGUE, MARYAN Service: ? Author Type: Registered Nurse Type: Nursing Progress Note Filed: 04/03/2024 07:27 Note Text: Pt had a positive test today, pt states she had a medication induced 03/26/24. Dr Demarco, Dr Rodarte and Nuclear Imaging notified, ok to proceed from Dr Rodarte and Dr Demarco [facility] OPERATIVE NOon 04-03-2024 OPERATIVE NO HNO ID: [id number] Author: SANJUANITA RODARTE MD Service: General Surgery Author Type: Physician Type: Operative Report Filed: 04/03/2024 16:27 Note Text: OPERATIVE/PROCEDURE REPORT LOG ID: [id number] Surgery/Procedure Date: 04/03/2024 Incision/Procedure Start Time: 2:25 PM Incision Close/Procedure End Time: Surgeon(s)/Procedural ist(s) and Library Aide(s): Surgeons and Role: * Sanjuanita Rodarte MD - Primary * Aldo Forrest MD - Resident - Assisting No Additional Staff Procedure(s): Wide local excision of melanoma of right upper back and bilateral axillary sentinel lymph node biopsy Anesthesia: General Indications for Surgery: Ms. Adriane Avalos is a 39 year old female with a history of melanoma on right upper back. Findings: Biopsy site without residual pigmentation. Bilateral axillary lymph nodes hot and blue. Procedure Details: Prior to the operation, the patient was seen in the preoperative holding area where the site and side were marked. The patient was then taken to radiology where they were injected with radiocolloid by nuclear medicine radiology. A post-procedure lymphoscintigraphy showed localization of the sentinel node to the bilateral axillary lymph node basin. The patient was brought to the operating room after a preoperative huddle was performed, confirming the correct patient, procedure, and site. General anesthesia was induced. The patient was positioned supine with both arms out. Antibiotics were admininstered within one hour of incision. Surgical timeout was performed prior to making incision to confirm correct patient, procedure, and site with all members of the team in agreement. The dermis around the index site was then injected with lymphazurin blue. The patient was then prepped and draped in usual sterile fashion. The area of maximum radioactive uptake in the left axillary lymph node basin was identified using the gamma probe. A transverse incision was made in this area and extended through the superficial fascia. The gamma probe was then used to direct dissection toward the sentinel lymph node as well as identifying any blue lymphatics or lymph nodes. Clips were used to secure the lymphatics and the node was dissected free. The node was hot and blue. The ex vivo count of the node was measured and the lymph node basin was explored with the gamma probe for any nodes with greater than 10% of this count. The basin was also explored for any additional blue or palpable lymph nodes. No additional lymph nodes were identified. Hemostasis was achieved and the incision was closed in layers and skin glue applied. The area of maximum radioactive uptake in the right axillary lymph node basin was identified using the gamma probe. A transverse incision was made in this area and extended through the superficial fascia. The gamma probe was then used to direct dissection toward the sentinel lymph node as well as identifying any blue lymphatics or lymph nodes. Clips were used to secure the lymphatics and the node was dissected free. The node was hot and blue. The ex vivo count of the node was measured and the lymph node basin was explored with the gamma probe for any nodes with greater than 10% of this count. The basin was also explored for any additional blue or palpable lymph nodes. No additional lymph nodes were identified. Hemostasis was achieved and the incision was closed in layers and skin glue applied. The patient was then repositioned prone and reprepped and redraped in the usual sterile fashion. Attention was then turned to the wide local excision of the index site located on the right upper back. A 1 cm circumferential margin was marked around the primary lesion. This created a 3 cm diameter excision. The excision was made elliptical with the long axis of closure in the longitudinal axis of the right upper back. The incision was made sharply and carried down to the level of the fascia using electrocautery. The specimen was oriented, marked, and passed off to Pathology. The total length of the incision was 7.5 cm. Cutaneous flaps were created by undermining the subcutaneous tissue off of the deep fascia for 1 cm. Once this was completed, the incision was able to be closed with acceptable amount of tension due to the mobility of the flaps. The incision was closed with a combination of various sized vicryl sutures in multiple layers. Skin glue was applied. At the completion of the case, sponge, lap, and instrument counts were correct x2. The patient tolerated the procedure well, was extubated in the operating room, and taken to the PACU in stable condition. Commission on Cancer - Standard 5.5: Wide Local Excision for Primary Cutaneous Melanoma Wide Local Excision for Primary Cutaneous Melanoma - Excision 1 (Back) Operation performed with curative intent Yes Original Breslow thickness of the lesion 1.5 mm (to the tenth of a millimeter) (more content not included)... Normal [facility] Pathology biopsy report Jamarcus (Tiss)on 04-03-2024 CASE REPORT Normal [facility] Comment on above: Order Comment: Speci men Type: TISSUE SPECIMEN [facility]ing Facility: [facility] Address: [address] [place] [address] Result Comment: Surg ica Pathology Report Case: [id number] Authorizing Provider: Sanjuanita Rodarte MD Collected: 04/03/2024 02:47 PM Ordering Location: [place] [facility] Received: 04/06/2024 07:57 AM Pathologist: Maycol Olivares MD Specimens: A) - Lymph Node, Right, Waldo, right axillary sentinal lymph node #1, hot and blue OOB 1444 B) - Lymph Node, Left, Waldo, left axillary sentinal lymph node #1, Hot and blue, OOB 1513 C) - Skin, Wide Excision, wide local excision, single staple marking superior, double staple marking right lateral Performed By: #### 6 6121-5 #### [facility] CLIA [id number] [address] [place] [address] [place] CLINICAL HISTORY Normal [facility] Comment on above: Order Comment: Speci men Type: TISSUE SPECIMEN Ordering Facility: [facility] Address: [address] [place] [address] Result Comment: Pre- op diagnosis: Malignant melanoma of back (HCC) [C43.59] Performed By: #### 6 6121-5 #### [facility] CLIA [id number] [address] DIAGNOSIS COMMENT Normal [facility] Comment on above: Order Comment: Speci men Type: TISSUE SPECIMEN [facility]ing Facility: [facility] Address: [address] [place] [address] Result Comment: In a ccordance with sentinel lymph node protocol, immunostains for SOX10, Melan A and HMB45 were performed on parts A and B. There is a small focus of melanoma cells in part A which is positive for SOX10, Melan A and HMB45. No melanoma cells are identified in part B. Per outside report, the patient was previously diagnosed with superficial spreading melanoma, staged as pT2a; together with the findings here, the stage would be [id number]. Selected slides were reviewed by Dr. Rah Cottrell, who agrees with this assessment. Laboratory Developed Test (LDT) Disclaimer: Performance characteristics of immunohistochemical, immunofluorescent and chromogenic in-situ hybridization tests have been determined by the performing laboratory within [facility]???s [facility] Pathology and Laboratory Medicine Department ([facility], [facility], [facility], [facility], [facility], [facility], [facility], or [facility]) in a manner consistent with CLIA requirements. One or more of these tests have not been cleared or approved by the FDA. [facility] is regulated under CLIA as qualified to perform high-complexity testing. These tests are used for clinical purposes. They should not be regarded as investigational or for research. Positive and negative controls stain appropriately. Performed By: #### 6 6121-5 #### [facility] CLIA [id number] [address] FINAL DIAGNOSIS Normal [facility] Comment on above: Order Comment: Speci men Type: TISSUE SPECIMEN Ordering Facility: [facility] Address: [address] [place] [address] Result Comment: A. S entinel lymph node, right axillary, excision: - Metastatic melanoma in one (1) lymph node (1/), (see comment). - The metastatic deposit is 0.1 mm. - No extranodal extension is present. B. Waldo lymph node, left axillary, excision: - One (1) benign lymph node (0/1), (see comment). C. Skin, back, wide local excision: - Skin with scar formation, consistent with prior surgical procedure. - There is a small junctional nevus near to scar, completely excised. - No evidence of residual melanoma. at 1508 EST Performed By: #### 6 6121-5 #### [facility] CLIA [id number] [address] FINAL PERFORMING LAB Normal [facility] Comment on above: Order Comment: Good cheema Type: TISSUE SPECIMEN Ordering Facility: [facility] Address: [address] [place] [address] Result Comment: Diag nostic interpretation performed at: [facility], [address] [place] [address] CLIA# [id number] Dispatcher Street Department: Rah Cottrell MD Performed By: #### 6 6121-5 #### [facility] CLIA [id number] [address] GROSS DESCRIPTION Normal [facility] Comment on above: Order Comment: Good cheema Type: TISSUE SPECIMEN Ordering Facility: [facility] Address: [address] [place] [address] Result Comment: A. L ymph Node, Right, Waldo Received in formalin labeled right axillary sentinel lymph node 1 is a yellow to pink-carlton nodule resembling a possible lymph node measuring 3.1 x 2.3 x 1.7 cm. The specimen is serially sectioned and totally submitted in formalin in 5 cassettes. B. Lymph Node, Left, Waldo Received in formalin labeled left axillary sentinel lymph node #1 is a yellow-pink nodule resembling a possible lymph node measuring 4.5 x 2.3 x 1.5 cm. The specimen is serially sectioned and totally submitted in formalin in 7 cassettes. C. Skin, Wide Excision Received in formalin labeled wide local excision and oriented per the requisition with 1 staple superior to yemi lateral is an oriented ellipse of skin with underlying tissue measuring 5.5 x 2.7 x 2.1 cm. The lateral margin is inked orange, the medial margin is inked blue and the deep margin is inked black. The skin surface displays a red-carlton scarlike area measuring 1.2 x 0.8 cm. The scarlike area extends within 1.7 cm of the superior tip, 0.8 cm of the lateral margin, 2.5 cm of the inferior tip and 0.8 cm of the medial margin. The scarlike area is totally submitted en bloc. Tissue submitted as follows: C1 perpendicular superior tip international sales representative section C2 perpendicular inferior tip international sales representative section C3-C14 scarlike area totally submitted in block from superior to inferior aspect (C3-C8 with lateral margin, C9-C14 with medial margin) Gross examination performed at [facility], [address] [place] [address] KVB April 06, 2024 12:07 PM Performed By: #### 6 6121-5 #### [facility] CLIA [id number] [address] [place] [address] CNOVon 03-26-2024 CNOV Office Visit (AGGENS3) BAILEYADRIANE ([id number]) 1985 F Date Time Provider Department 03/26/24 11:30 AM SANJUANITA RODARTE AGGENS3 During your visit today, we recorded the following information about you: Weight Height 68 kg 1.676 m Sanjuanita Rodarte MD 03/26/2024 11:59 AM Signed Sanjuanita Rodarte MD Surgical Oncology [address] [place] [address], [address] [place] [address] Name: Adriane Avalos Age: [age] year old Sex: Adriane Bailey : 1985 Referring Provider: Adriane Li PA-C Subjective CHIEF COMPLAINT: Melanoma ONCOLOGIC HISTORY: 03/03/24: Melanoma of upper back HISTORY OF PRESENT ILLNESS: Ms. Avalos is a 39 year old female who presents for initial evaluation for melanoma. New Skin Lesion: Yes Changing size/shape: No Bleeding: No Other concerning lesions/nodules: No Prior history of melanoma: No History of sunburns:Yes History of tanning bed use: Yes Family history of Melanoma: Yes Maternal grandmother Anatomic Location: Right upper medial back Breslow Depth: 1.5mm Ulceration: No Mitosis: 1/mm2 PAST MEDICAL HISTORY Diagnosis Date Anemia GERD (gastroesophageal reflux disease) History of pre-eclampsia in prior , currently kidney stones depression Pre-eclampsia or eclampsia superimposed on pre-existing hypertension, with delivery, with current complication PAST SURGICAL HISTORY Procedure Laterality Date IUD INSERTION (OUTCOMES MANAGER DEPT)_*FL 01/29/2008 Mirena IUD REMOVAL (OUTCOMES MANAGER DEPT)_*FL 06/28/2008 Mirena KIDNEY STONE SURGERY HX 09/2021 PAST SURGICAL HISTORY OF 2024 skin lesion biopsy, back Current Outpatient Medications on File Prior to Visit Medication Sig Norethindrone, Contraceptive, (CANDICE) 0.35 mg tablet Take 1 tablet by mouth once daily. albuterol HFA (PROAIR HFA) 90 mcg/actuation inhaler Inhale 2 Puffs as instructed every 4 hours as needed for Wheezing/Shortness of Breath. No current facility-administered medications on file prior to visit. ALLERGIES No Known Allergies FAMILY HISTORY Problem Relation Age of Onset Breast Cancer Maternal Grandmother 75 Melanoma Maternal Grandmother Diabetes Maternal Grandfather Heart Maternal Grandfather [place]- Social History Tobacco Use Smoking status: Every Day Current packs/day: 0.50 Average packs/day: 0.5 packs/day for 0.1 years Types: Cigarettes Start date: 06/02/2009 Last attempt to quit: 06/03/2015 Smokeless tobacco: Never Vaping Use Vaping status: Never Used Substance Use Topics Alcohol use: Not Currently Comment: OCCASIONALLY Drug use: Never I personally reviewed Tobacco Allergies Meds Problems Med Hx Surg Hx Fam Hx Objective PHYSICAL EXAM: Ht 5' 6 (1.68m) Wt 150 lb (68.0kg) LMP 03/31/2023 BMI 24.22 kg/(m2). Physical Exam Constitutional: Appearance: Normal appearance. She is normal weight. HENT: Head: Normocephalic and atraumatic. Mouth/Throat: Mouth: Mucous membranes are moist. Eyes: Extraocular Movements: Extraocular movements intact. Cardiovascular: Rate and Rhythm: Normal rate. Pulmonary: Effort: Pulmonary effort is normal. No respiratory distress. Abdominal: General: Abdomen is flat. Palpations: Abdomen is soft. Musculoskeletal: General: Normal range of motion. Cervical back: Normal range of motion. Lymphadenopathy: Cervical: No cervical adenopathy. Right cervical: No superficial or posterior cervical adenopathy. Left cervical: No superficial or posterior cervical adenopathy. Upper Body: Right upper body: No supraclavicular or axillary adenopathy. Left upper body: No supraclavicular or axillary adenopathy. Lower Body: No right inguinal adenopathy. No left inguinal adenopathy. Skin: General: Skin is warm and dry. Comments: Biopsy site without residual pigmenation Neurological: General: No focal deficit present. Mental Status: She is alert and oriented to person, place, and time. Psychiatric: Mood and Affect: Mood normal. Behavior: Behavior normal. Thought Content: Thought content normal. Judgment: Judgment normal. Back melanoma biopsy site DATA: Pathology Report: 03/03/24: Right Medial Upper back Melanoma Histologic Type: superficial spreading Maximum Tumor thickness: 1.5mm Ulceration: Not identified Margins: Positive - deep focally involved by invasive melanoma and peripheral involved by melanoma in situ Mitotic index: 1/mm2 LVI: Not identified Microsatellitosis: not identified PNI: not identified Regeression: not identified Pathologic stage: pT2a Assessment/Plan Ms. Avalos is a 39 year old female with new melanoma of right upper back. Surgical Planning: WLE: Yes SLNB: Yes - Melanoma [place] risk calculator: 19% Adjacent tissue rearrangement, possible skin graft: No (more content not included)... Normal [facility] HISTORY PHYSICALon HISTORY PHYSICAL HNO ID: [id number] Author: SANJUANITA RODARTE MD Service: ? Author Type: Physician Type: H&P Filed: 03/26/2024 11:59 Note Text: Sanjuanita Rodarte MD Surgical Oncology [address] [place] [address] [address] [place] [address] Name: Adriane Avalos Age: [age] year old Sex: Adriane Avalos : 1985 Referring Provider: Adriane Li PA-C Subjective CHIEF COMPLAINT: Melanoma ONCOLOGIC HISTORY: 03/03/24: Melanoma of upper back HISTORY OF PRESENT ILLNESS: Ms. Avalos is a 39 year old female who presents for initial evaluation for melanoma. New Skin Lesion: Yes Changing size/shape: No Bleeding: No Other concerning lesions/nodules: No Prior history of melanoma: No History of sunburns:Yes History of tanning bed use: Yes Family history of Melanoma: Yes Maternal grandmother Anatomic Location: Right upper medial back Breslow Depth: 1.5mm Ulceration: No Mitosis: 1/mm2 PAST MEDICAL HISTORY Diagnosis Date Anemia GERD (gastroesophageal reflux disease) History of pre-eclampsia in prior , currently kidney stones depression Pre-eclampsia or eclampsia superimposed on pre-existing hypertension, with delivery, with current complication PAST SURGICAL HISTORY Procedure Laterality Date IUD INSERTION (OUTCOMES MANAGER DEPT)_*FL 01/29/2008 Mirena IUD REMOVAL (OUTCOMES MANAGER DEPT)_*FL 06/28/2008 Mirena KIDNEY STONE SURGERY HX 09/2021 PAST SURGICAL HISTORY OF 2024 skin lesion biopsy, back Current Outpatient Medications on File Prior to Visit Medication Sig Norethindrone, Contraceptive, (CANDICE) 0.35 mg tablet Take 1 tablet by mouth once daily. albuterol HFA (PROAIR HFA) 90 mcg/actuation inhaler Inhale 2 Puffs as instructed every 4 hours as needed for Wheezing/Shortness of Breath. No current facility-administered medications on file prior to visit. ALLERGIES No Known Allergies FAMILY HISTORY Problem Relation Age of Onset Breast Cancer Maternal Grandmother 75 Melanoma Maternal Grandmother Diabetes Maternal Grandfather Heart Maternal Grandfather [place]- Social History Tobacco Use Smoking status: Every Day Current packs/day: 0.50 Average packs/day: 0.5 packs/day for 0.1 years Types: Cigarettes Start date: 06/02/2009 Last attempt to quit: 06/03/2015 Smokeless tobacco: Never Vaping Use Vaping status: Never Used Substance Use Topics Alcohol use: Not Currently Comment: OCCASIONALLY Drug use: Never I personally reviewed Tobacco Allergies Meds Problems Med Hx Surg Hx Fam Hx Objective PHYSICAL EXAM: Ht 5' 6 (1.68m) Wt 150 lb (68.0kg) LMP 03/31/2023 BMI 24.22 kg/(m2). Physical Exam Constitutional: Appearance: Normal appearance. She is normal weight. HENT: Head: Normocephalic and atraumatic. Mouth/Throat: Mouth: Mucous membranes are moist. Eyes: Extraocular Movements: Extraocular movements intact. Cardiovascular: Rate and Rhythm: Normal rate. Pulmonary: Effort: Pulmonary effort is normal. No respiratory distress. Abdominal: General: Abdomen is flat. Palpations: Abdomen is soft. Musculoskeletal: General: Normal range of motion. Cervical back: Normal range of motion. Lymphadenopathy: Cervical: No cervical adenopathy. Right cervical: No superficial or posterior cervical adenopathy. Left cervical: No superficial or posterior cervical adenopathy. Upper Body: Right upper body: No supraclavicular or axillary adenopathy. Left upper body: No supraclavicular or axillary adenopathy. Lower Body: No right inguinal adenopathy. No left inguinal adenopathy. Skin: General: Skin is warm and dry. Comments: Biopsy site without residual pigmenation Neurological: General: No focal deficit present. Mental Status: She is alert and oriented to person, place, and time. Psychiatric: Mood and Affect: Mood normal. Behavior: Behavior normal. Thought Content: Thought content normal. Judgment: Judgment normal. Back melanoma biopsy site DATA: Pathology Report: 03/03/24: Right Medial Upper back Melanoma Histologic Type: superficial spreading Maximum Tumor thickness: 1.5mm Ulceration: Not identified Margins: Positive - deep focally involved by invasive melanoma and peripheral involved by melanoma in situ Mitotic index: 1/mm2 LVI: Not identified Microsatellitosis: not identified PNI: not identified Regeression: not identified Pathologic stage: pT2a Assessment/Plan Ms. Avalos is a 39 year old female with new melanoma of right upper back. Surgical Planning: WLE: Yes SLNB: Yes - Melanoma [place] risk calculator: 19% Adjacent tissue rearrangement, possible skin graft: No Plastics to close: No Cardiac History: no On ASA or Anticoagulants: no Pacemaker/defibrillat or/implanted device: no Cancer Staging 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) Staging form: Melanoma of the Skin, AJCC 8th Editi (more content not included)... Normal [facility] CBC W Auto Differential pane l (Bld)on 09-09-2023 Basophils (Bld) [#/Vol] 0.05 10*3/uL [facility] Basophils/100 WBC (Bld) 0.5 % 0.0 - 2.0 % [facility] Eosinophils (Bld) [#/Vol] 0.53 10*3/uL [facility] Eosinophils/100 WBC (Bld) 5.1 % 0.0 - 6.0 % [facility] Erythrocyte distribution width (RBC) [Ratio] 13.6 % 11.5 - 14.5 % [facility] Hematocrit (Bld) [Volume fraction] 42.0 % 36.0 - 46.0 % [facility] Hemoglobin (Bld) [Mass/Vol] 13.8 g/dL 12.0 - 16.0 g/dL [facility] Immature granulocytes (Bld) [#/Vol] 0.03 10*3/uL [facility] Immature granulocytes/100 WBC (Bld) 0.3 % 0.0 - 0.9 % [facility] Comment on above: Immature Granulocyte Count (IG) includes promyelocytes, myelocytes and metamyelocytes but does not include bands. Percent differential counts (%) should be interpreted in the context of the absolute cell counts (cells/UL). Lymphocytes (Bld) [#/Vol] 3.86 10*3/uL [facility] Lymphocytes/100 WBC (Bld) 37.2 % 13.0 - 44.0 % [facility] MCH (RBC) [Entitic mass] 29.9 pg 26.0 - 34.0 pg [facility] MCHC (RBC) [Mass/Vol] 32.9 g/dL 32.0 - 36.0 g/dL [facility] MCV (RBC) [Entitic vol] 91 fL 80 - 100 fL [facility] Monocytes (Bld) [#/Vol] 0.79 10*3/uL [facility] Monocytes/100 WBC (Bld) 7.6 % 2.0 - 10.0 % [facility] Neutrophils (Bld) [#/Vol] 5.11 10*3/uL [facility] Comment on above: Percent differential counts (%) should be interpreted in the context of the absolute cell counts (cells/uL). Neutrophils/100 WBC (Bld) 49.3 % 40.0 - 80.0 % [facility] Nucleated RBC/100 WBC (Bld) [Ratio] 0.0 % [facility] Platelets (Bld) [#/Vol] 348 10*3/uL [facility] RBC (Bld) [#/Vol] 4.61 10*6/uL [facility] WBC (Bld) [#/Vol] 10.4 10*3/uL [facility] Basophils (Bld) [#/Vol] 0.05 x10*3/uL Normal 0.00-0.10 [facility] Comment on above: Performed By: #### 5 7021-8 #### MARLEE FREEMAN ([id number]) [facility] ([facility]) [address] [place] [address]236 Basophils/100 WBC (Bld) 0.5 % Normal 0.0-2.0 [facility] Comment on above: Performed By: #### 5 7021-8 #### MARLEE FREEMAN ([id number]) [facility] ([facility]) [address] [place] [address] 17642 Eosinophils (Bld) [#/Vol] 0.53 x10*3/uL Normal 0.00-0.70 [facility] Comment on above: Performed By: #### 5 7021-8 #### MARELE FREEMAN ([id number]) [facility] ([facility]) [facility] [place] [address] Eosinophils/100 WBC (Bld) 5.1 % Normal 0.0-6.0 [facility] Comment on above: Performed By: #### 5 7021-8 #### MARLEE FREEMAN ([id number]) [facility] ([facility]) [address] [place] [address] 23213 Erythrocyte distribution width (RBC) [Ratio] 13.6 % Normal 11.5-14.5 [facility] Comment on above: Performed By: #### 5 7021-8 #### MARLEE FREEMAN ([id number]) [facility] ([facility]) [address] [place] [address] Hematocrit (Bld) [Volume fraction] 42.0 % Normal 36.0-46.0 [facility] Comment on above: Performed By: #### 5 7021-8 #### MARLEE FREEMAN ([id number]) [facility] ([facility]) [address] [place], [place] [id number] Hemoglobin (Bld) [Mass/Vol] 13.8 g/dL Normal 12.0-16.0 [facility] Comment on above: Performed By: #### 5 7021-8 #### MARLEE FREEMAN ([id number]) [facility] ([facility]) [address] [place] [address] Immature granulocytes (Bld) [#/Vol] 0.03 x10*3/uL Normal 0.00-0.70 [facility] Comment on above: Performed By: #### 5 7021-8 #### MARLEE FREEMAN ([id number]) [facility] ([facility]) [address] [place], [place] [id number] Immature granulocytes/100 WBC (Bld) 0.3 % Normal 0.0-0.9 [facility] Comment on above: Result Comment: Suzan ture Granulocyte Count (IG) includes promyelocytes, myelocytes and metamyelocytes but does not include bands. Percent differential counts (%) should be interpreted in the context of the absolute cell counts (cells/UL). Performed By: #### 5 7021-8 #### MARLEE FREEMAN ([id number]) [facility] ([facility]) [address] [place] [address]1740 Lymphocytes (Bld) [#/Vol] 3.86 x10*3/uL Normal 1.20-4.80 [facility] Comment on above: Performed By: #### 5 7021-8 #### MARLEE FREEMAN ([id number]) [facility] ([facility]) [address] [place] [address] 13698 Lymphocytes/100 WBC (Bld) 37.2 % Normal 13.0-44.0 [facility] Comment on above: Performed By: #### 5 7021-8 #### MARLEE FREEMAN ([id number]) [facility] ([facility]) [address] [place] [address] 77273 MCH (RBC) [Entitic mass] 29.9 pg Normal 26.0-34.0 [facility] Comment on above: Performed By: #### 5 7021-8 #### MARLEE FREEMAN ([id number]) [facility] ([facility]) [address] [place] [address] 32273 MCHC (RBC) [Mass/Vol] 32.9 g/dL Normal 32.0-36.0 [facility] Comment on above: Performed By: #### 5 7021-8 #### MARLEE FREEMAN ([id number]) [facility] ([facility]) [address] [place] [address] 52566 MCV (RBC) [Entitic vol] 91 fL Normal 80-100 [facility] Comment on above: Performed By: #### 5 7021-8 #### MARLEE FREEMAN ([id number]) [facility] ([facility]) [address] [place] [address] 16615 Monocytes (Bld) [#/Vol] 0.79 x10*3/uL Normal 0.10-1.00 [facility] Comment on above: Performed By: #### 5 7021-8 #### MARLEE FREEMAN ([id number]) [facility] ([facility]) [address] [place] [address] 52448 Monocytes/100 WBC (Bld) 7.6 % Normal 2.0-10.0 [facility] Comment on above: Performed By: #### 5 7021-8 #### MARLEE FREEMAN ([id number]) [facility] ([facility]) [address] [place] [address] 71161 Neutrophils (Bld) [#/Vol] 5.11 x10*3/uL Normal 1.20-7.70 [facility] Comment on above: Result Comment: Perc ent differential counts (%) should be interpreted in the context of the absolute cell counts (cells/uL). Performed By: #### 5 7021-8 #### MARLEE FREEMAN ([id number]) [facility] ([facility]) [address] [place] [address] 43346 Neutrophils/100 WBC (Bld) 49.3 % Normal 40.0-80.0 [facility] Comment on above: Performed By: #### 5 7021-8 #### MARLEE FREEMAN ([id number]) [facility] ([facility]) [address] [place] [address] 69244 Nucleated RBC/100 WBC (Bld) [Ratio] 0.0 /100 WBCs Normal 0.0-0.0 [facility] Comment on above: Performed By: #### 5 7021-8 #### MARLEE FREEMAN ([id number]) [facility] ([facility]) [address] [place] [address] 27710 Platelets (Bld) [#/Vol] 348 x10*3/uL Normal 150-450 [facility] Comment on above: Performed By: #### 5 7021-8 #### MARLEE FREEMAN ([id number]) [facility] ([facility]) [address] [place] [address] 59347 RBC (Bld) [#/Vol] 4.61 x10*6/uL Normal 4.00-5.20 [facility] Comment on above: Performed By: #### 5 7021-8 #### MARLEE FREEMAN ([id number]) [facility] ([facility]) [address] [place] [address] 56685 WBC (Bld) [#/Vol] 10.4 x10*3/uL Normal 4.4-11.3 [facility] Comment on above: Performed By: #### 5 7021-8 #### MARLEE FREEMAN ([id number]) [facility] ([facility]) [address] [place] [address] ABDOMEN PELVIS W IV CONTR Rod 09-09-2023 CT ABDOMEN PELVIS W IV CONTRAST STUDY: CT Abdomen and Pelvis with IV Contrast; 09/09/2023 6:10 PM INDICATION: Right lower quadrant pain. COMPARISON: XR abdomen 09/18/2021. CT abdomen/pelvis 09/14/2021. ACCESSION NUMBER(S): [id number] ORDERING CLINICIAN: SELAM MARCELO TECHNIQUE: CT of the abdomen and pelvis was performed. Contiguous axial images were obtained at 3 mm slice thickness through the abdomen and pelvis. Coronal and sagittal reconstructions at 3 mm slice thickness were performed. Omnipaque 350:67 mL was administered intravenously. FINDINGS: LOWER CHEST: No cardiomegaly. No pericardial effusion. Lung bases are clear. ABDOMEN: LIVER: No hepatomegaly. Smooth surface contour. Redemonstration of periportal edema which is more prominent currently. BILE DUCTS: No intrahepatic or extrahepatic biliary ductal dilatation. GALLBLADDER: The gallbladder is normal. STOMACH: No abnormalities identified. PANCREAS: No masses or ductal dilatation. SPLEEN: No splenomegaly or focal splenic lesion. ADRENAL GLANDS: No thickening or nodules. KIDNEYS AND URETERS: Kidneys are normal in size and location. There is a 4 mm nonobstructing calculus in the lower pole of the left kidney. There is moderate right hydroureteronephrosis down to the bladder where there is a 2 to 3 mm calculus. PELVIS: BLADDER: The bladder although not well filled and is grossly unremarkable for intrinsic disease. REPRODUCTIVE ORGANS: No abnormalities identified. BOWEL: No abnormalities identified. VESSELS: No abnormalities identified. Abdominal aorta is normal in caliber. PERITONEUM/RETROPERIT ONEUM/LYMPH NODES: No free fluid. No pneumoperitoneum. No lymphadenopathy. ABDOMINAL WALL: No abnormalities identified. SOFT TISSUES: No abnormalities identified. BONES: No acute fracture or aggressive osseous lesion. IMPRESSION: 2-3 mm obstructing calculus at the right ureterovesical junction with moderate right hydroureteronephrosis . Nonobstructing 4 mm calculus in lower pole left kidney. Marked periportal edema. Correlation with patient's history for any known liver disease or other cause is recommended if not already evaluated.. Signed by Nick Luz MD [facility] CT Abdomen and Pelvis W cont rast [place] 09-09-2023 2-3 mm obstructing calculus at the right ureterovesical junction with moderate right hydroureteronephrosis . Nonobstructing 4 mm calculus in lower pole left kidney. Marked periportal edema. Correlation with patient's history for any known liver disease or other cause is recommended if not already evaluated.. Signed by Nick Luz MD TELERADIOLOGY STUDY: CT Abdomen and Pelvis with IV Contrast; 09/09/2023 6:10 PM INDICATION: Right lower quadrant pain. COMPARISON: XR abdomen 09/18/2021. CT abdomen/pelvis 09/14/2021. ACCESSION NUMBER(S): [id number] ORDERING CLINICIAN: SELAM MARCELO TECHNIQUE: CT of the abdomen and pelvis was performed. Contiguous axial images were obtained at 3 mm slice thickness through the abdomen and pelvis. Coronal and sagittal reconstructions at 3 mm slice thickness were performed. Omnipaque 350:67 mL was administered intravenously. FINDINGS: LOWER CHEST: No cardiomegaly. No pericardial effusion. Lung bases are clear. ABDOMEN: LIVER: No hepatomegaly. Smooth surface contour. Redemonstration of periportal edema which is more prominent currently. BILE DUCTS: No intrahepatic or extrahepatic biliary ductal dilatation. GALLBLADDER: The gallbladder is normal. STOMACH: No abnormalities identified. PANCREAS: No masses or ductal dilatation. SPLEEN: No splenomegaly or focal splenic lesion. ADRENAL GLANDS: No thickening or nodules. KIDNEYS AND URETERS: Kidneys are normal in size and location. There is a 4 mm nonobstructing calculus in the lower pole of the left kidney. There is moderate right hydroureteronephrosis down to the bladder where there is a 2 to 3 mm calculus. PELVIS: BLADDER: The bladder although not well filled and is grossly unremarkable for intrinsic disease. REPRODUCTIVE ORGANS: No abnormalities identified. BOWEL: No abnormalities identified. VESSELS: No abnormalities identified. Abdominal aorta is normal in caliber. PERITONEUM/RETROPERIT ONEUM/LYMPH NODES: No free fluid. No pneumoperitoneum. No lymphadenopathy. ABDOMINAL WALL: No abnormalities identified. SOFT TISSUES: No abnormalities identified. BONES: No acute fracture or aggressive osseous lesion. TELERADIOLOGY Sukh, Nick Wells MD - 09/09/2023 STUDY: CT Abdomen and Pelvis with IV Contrast; 09/09/2023 6:10 PM INDICATION: Right lower quadrant pain. COMPARISON: XR abdomen 09/18/2021. CT abdomen/pelvis 09/14/2021. ACCESSION NUMBER(S): [id number] ORDERING CLINICIAN: SELAM Bella BILDERQUIRINO TECHNIQUE: CT of the abdomen and pelvis was performed. Contiguous axial images were obtained at 3 mm slice thickness through the abdomen and pelvis. Coronal and sagittal reconstructions at 3 mm slice thickness were performed. Omnipaque 350:67 mL was administered intravenously. FINDINGS: LOWER CHEST: No cardiomegaly. No pericardial effusion. Lung bases are clear. ABDOMEN: LIVER: No hepatomegaly. Smooth surface contour. Redemonstration of periportal edema which is more prominent currently. BILE DUCTS: No intrahepatic or extrahepatic biliary ductal dilatation. GALLBLADDER: The gallbladder is normal. STOMACH: No abnormalities identified. PANCREAS: No masses or ductal dilatation. SPLEEN: No splenomegaly or focal splenic lesion. ADRENAL GLANDS: No thickening or nodules. KIDNEYS AND URETERS: Kidneys are normal in size and location. There is a 4 mm nonobstructing calculus in the lower pole of the left kidney. There is moderate right hydroureteronephrosis down to the bladder where there is a 2 to 3 mm calculus. PELVIS: BLADDER: The bladder although not well filled and is grossly unremarkable for intrinsic disease. REPRODUCTIVE ORGANS: No abnormalities identified. BOWEL: No abnormalities identified. VESSELS: No abnormalities identified. Abdominal aorta is normal in caliber. PERITONEUM/RETROPERIT ONEUM/LYMPH NODES: No free fluid. No pneumoperitoneum. No lymphadenopathy. ABDOMINAL WALL: No abnormalities identified. SOFT TISSUES: No abnormalities identified. BONES: No acute fracture or aggressive osseous lesion. IMPRESSION: 2-3 mm obstructing calculus at the right ureterovesical junction with moderate right hydroureteronephrosis . Nonobstructing 4 mm calculus in lower pole left kidney. Marked periportal edema. Correlation with patient's history for any known liver disease or other cause is recommended if not already evaluated.. Signed by Nick Luz MD [facility] Work Phone: Radiology Study observation (narrative) [facility] Work Phone: CT Abdomen and Pelvis W cont rast IVOrdered By: Nick Luz on 09-09-2023 [facility] Work Phone: Comprehensive metabolic 2000 panelon 09-09-2023 Albumin BCP dye [Mass/Vol] 4.3 g/dL 3.4 - 5.0 g/dL [facility] ALP [Catalytic activity/Vol] 52 U/L 33 - 110 U/L [facility] ALT With P-5'-P [Catalytic activity/Vol] 10 U/L 7 - 45 U/L [facility] Comment on above: Patients treated wit h Sulfasalazine may generate falsely decreased results for ALT. Anion gap [Moles/Vol] 12 mmol/L 10 - 20 mmol/L [facility] AST With P-5'-P [Catalytic activity/Vol] 10 U/L 9 - 39 U/L [facility] Bilirubin [Mass/Vol] 0.5 mg/dL 0.0 - 1 .2 mg/dL [facility] Calcium [Mass/Vol] 8.9 mg/dL 8.6 - 10. 3 mg/dL [facility] Chloride [Moles/Vol] 107 mmol/L 98 - 10 7 mmol/L [facility] CO2 [Moles/Vol] 23 mmol/L 21 - 32 mmol/L [facility] Creatinine [Mass/Vol] 0.76 mg/dL 0.50 - 1.05 mg/dL [facility] eGFR - PINF [facility] Comment on above: Calculations of thee mated GFR are performed using the 2020 CKD-EPI Study Refit equation without the race variable for the IDMS-Traceable creatinine methods. https://jasn.asnjournals.org/content//ASN.503852 5012 Glucose [Mass/Vol] 96 mg/dL 74 - 99 mg/dL [facility] Potassium [Moles/Vol] 3.7 mmol/L 3.5 - 5.3 mmol/L [facility] Protein [Mass/Vol] 6.8 g/dL 6.4 - 8.2 g/dL [facility] Sodium [Moles/Vol] 138 mmol/L 136 - 145 mmol/L [facility] Urea nitrogen [Mass/Vol] 13 mg/dL 6 - 23 mg/dL [facility] Albumin BCP dye [Mass/Vol] 4.3 g/dL Normal 3.4-5.0 [facility] Comment on above: Performed By: #### 2 4323-8 #### WHALEN LYDIA ([id number]) [facility] ([facility]) [address] [place] [address] ALP [Catalytic activity/Vol] 52 U/L Normal 33-110 [facility] Comment on above: Performed By: #### 2 4323-8 #### MARLEE FREEMAN ([id number]) [facility] ([facility]) [address] [place] [address] ALT With P-5'-P [Catalytic activity/Vol] 10 U/L Normal 7-45 [facility] Comment on above: Result Comment: Ingrid ents treated with Sulfasalazine may generate falsely decreased results for ALT. Performed By: #### 2 432-8 #### MARLEE FREEMAN ([id number]) [facility] ([facility]) [address] [place] [address]126 Anion gap [Moles/Vol] 12 mmol/L Normal 10-20 [facility] Comment on above: Performed By: #### 2 432-8 #### MARLEE FREEMAN ([id number]) [facility] ([facility]) [address] [place] [address] 97924 AST With P-5'-P [Catalytic activity/Vol] 10 U/L Normal 9-39 [facility] Comment on above: Performed By: #### 2 432-8 #### MARLEE FREEMAN ([id number]) [facility] ([facility]) [address] [place] [address] Bilirubin [Mass/Vol] 0.5 mg/dL Normal 0.0-1.2 [facility] Comment on above: Performed By: #### 2 432-8 #### MARLEE FREEMAN ([id number]) [facility] ([facility]) [address] [place] [address] Calcium [Mass/Vol] 8.9 mg/dL Normal 8.6-10.3 [facility] Comment on above: Performed By: #### 2 4323-8 #### MARLEE FREEMAN ([id number]) [facility] ([facility]) [address] [place] [address] Chloride [Moles/Vol] 107 mmol/L Normal 98-107 [facility] Comment on above: Performed By: #### 2 4323-8 #### MARLEE FREEMAN ([id number]) [facility] ([facility]) [address] [place] [address] 42719 CO2 [Moles/Vol] 23 mmol/L Normal 21-32 [facility] Comment on above: Performed By: #### 2 4323-8 #### MARLEE FREEMAN ([id number]) [facility] ([facility]) [address] [place] [address] 78649 Creatinine [Mass/Vol] 0.76 mg/dL Normal 0.50-1.05 [facility] Comment on above: Performed By: #### 2 4323-8 #### MARLEE FREEMAN ([id number]) [facility] ([facility]) [address] [place] [address] 13929 GFR/1.73 sq M.predicted MDRD (S/P/Bld) [Vol rate/Area] mL/min/{1.73_m2} Normal >60 [facility] Comment on above: Result Comment: Calc ulations of estimated GFR are performed using the 2020 CKD-EPI Study Refit equation without the race variable for the IDMS-Traceable creatinine methods. https://jasn.asnjournals.org/content/early//ASN.120998 1196 Performed By: #### 2 4323-8 #### MARLEE FREEMAN ([id number]) [facility] ([facility]) [address] [place] [address] 65857 Glucose [Mass/Vol] 96 mg/dL Normal 74-99 [facility] Comment on above: Performed By: #### 2 4323-8 #### MARLEE FREEMAN ([id number]) [facility] ([facility]) [address] [place] [address]70 Potassium [Moles/Vol] 3.7 mmol/L Normal 3.5-5.3 [facility] Comment on above: Performed By: #### 2 4323-8 #### MARLEE FREEMAN ([id number]) [facility] ([facility]) [address] [place] [address] 31719 Protein [Mass/Vol] 6.8 g/dL Normal 6.4-8.2 [facility] Comment on above: Performed By: #### 2 4323-8 #### MARLEE FREEMAN ([id number]) [facility] ([facility]) [address] [place] [address] 92056 Sodium [Moles/Vol] 138 mmol/L Normal 136-145 [facility] Comment on above: Performed By: #### 2 4323-8 #### MARLEE FREEMAN ([id number]) [facility] ([facility]) [address] [place] [address] 41841 Urea nitrogen [Mass/Vol] 13 mg/dL Normal 6-23 [facility] Comment on above: Performed By: #### 2 4323-8 #### MARLEE FREEMAN ([id number]) [facility] ([facility]) [address] [place], [place] [phone] HCG ( test) IA.rapi d Ql (U)Ordered By: Joni Soriano on 09-09-2023 HCG ( test) Ql (U) Negative NEGATIVE [facility] Interpretation and review of laboratory results Normal [facility] HCG ( test) IA.rapi d Ql (U)on 09-09-2023 HCG ( test) Ql (U) Negative Normal NEGATIVE [facility] Comment on above: Performed By: #### 8 0384-1 #### MARLEE FREEMAN ([id number]) [facility] ([facility]) [address] [place] [address] 73824 Lactateon 09-09-2023 Lactate [Moles/Vol] 1.1 mmol/L 0.4 - 2. 0 mmol/L [facility] Lactate [Moles/Vol] 1.1 mmol/L Normal 0.4-2.0 [facility] Comment on above: Order Comment: Venip uncture immediately after or during the administration of Metamizole may lead to falsely low results. Testing should be performed immediately prior to Metamizole dosing. Performed By: #### 2 524-7 #### MARLEE FREEMAN ([id number]) [facility] ([facility]) [address] [place] [address] Lactate [Moles/Vol]on 2023 Interpretation and review of laboratory results Normal [facility] Venipuncture immediately after or during the administration of Metamizole may lead to falsely low results. Testing should be performed immediately prior to Metamizole dosing. [facility] Lipaseon 09-09-2023 Lipase [Catalytic activity/Vol] 20 U/L U/L [facility] Lipase [Catalytic activity/V ol]on 09-09-2023 Venipuncture immediately after or during the administration of Metamizole may lead to falsely low results. Testing should be performed immediately prior to Metamizole dosing. [facility] No Panel Informationon 09-08 Interpretation and review of laboratory results Normal [facility] Triacylglycerol lipaseon Lipase [Catalytic activity/Vol] 20 U/L Normal [facility] Comment on above: Order Comment: Venip uncture immediately after or during the administration of Metamizole may lead to falsely low results. Testing should be performed immediately prior to Metamizole dosing. Performed By: #### 3 040-3 #### MARLEE FREEMAN ([id number]) [facility] ([facility]) [address] [place] [phone] Urinalysis complete W Reflex Culture panel (U)on 09-09-2023 Appearance (U) Clear Clear [facility] Bacteria Auto (Urine sed) [#/Area] 1+ Abnormal NONE SEEN /HPF [facility] Bilirubin (U) [Mass/Vol] Negative NEGATIVE [facility] Color (U) Light-Yellow Light-Yellow, Yellow, Dark-Yellow [facility] Epithelial cells.squamous Auto (Urine sed) [#/Area] 1-9 (SPARSE) Reference range not established. /HPF [facility] Glucose Auto test strip (U) [Mass/Vol] Normal Normal mg/dL [facility] Interpretation and review of laboratory results Abnormal [facility] Ketones (U) [Mass/Vol] Negative NEGATIVE mg/dL [facility] Leukocyte esterase Auto test strip Ql (U) Negative NEGATIVE [facility] Mucus Auto (Urine sed) [#/Area] 2+ Reference range not established. /LPF [facility] Nitrite Auto test strip Ql (U) Negative NEGATIVE [facility] pH (U) 5.5 [pH] 5.0, 5.5, 6.0, 6.5, 7.0, 7.5, 8.0 [facility] Protein (U) [Mass/Vol] Negative NEGATIVE, 10 (TRACE), 20 (TRACE) mg/dL [facility] RBC (U) [#/Vol] 0.1 (1+) Abnormal NEGATIVE [facility] RBC Auto (Urine sed) [#/Area] 6-10 Abnormal NONE, 1-2, 3-5 /HPF [facility] Specific gravity (U) [Rel density] 1.012 1.005 - 1.035 [facility] Urobilinogen (U) [Mass/Vol] Normal Normal mg/dL [facility] WBC Auto (Urine sed) [#/Area] 1-5 1-5, NONE /HPF [facility] Appearance (U) Clear Normal Clear [facility] Comment on above: Performed By: #### 5 8077-9 #### MARLEE FREEMAN ([id number]) [facility] ([facility]) [address] [place] [address] Bacteria Auto (Urine sed) [#/Area] 1+ /HPF Abnormal NONE SEEN [facility] Comment on above: Performed By: #### 5 8077-9 #### MARLEE FREEMAN ([id number]) [facility] ([facility]) [address] [place] [address] 82853 Bilirubin (U) [Mass/Vol] Negative Normal NEGATIVE [facility] Comment on above: Performed By: #### 5 8077-9 #### MARLEE FREEMAN ([id number]) [facility] ([facility]) [address] [place], [place] [phone] Color (U) Light-Yellow Normal Light-Yellow, Yellow, Dark-Yellow [facility] Comment on above: Performed By: #### 5 8077-9 #### MARLEE FREEMAN ([id number]) [facility] ([facility]) [address] [place] [address] 11775 Epithelial cells.squamous Auto (Urine sed) [#/Area] 1-9 (SPARSE) Normal Reference range not established. [facility] Comment on above: Performed By: #### 5 8077-9 #### MARLEE FREEMAN ([id number]) [facility] ([facility]) [address] [place] [address] Glucose Auto test strip (U) [Mass/Vol] Normal Normal Normal [facility] Comment on above: Performed By: #### 5 8077-9 #### MARLEE FREEMAN ([id number]) [facility] ([facility]) [address] [place] [address] Ketones (U) [Mass/Vol] Negative Normal NEGATIVE [facility] Comment on above: Performed By: #### 5 8077-9 #### MARLEE FREEMAN ([id number]) [facility] ([facility]) [address] [place] [address] Leukocyte esterase Auto test strip Ql (U) Negative Normal NEGATIVE [facility] Comment on above: Performed By: #### 5 8077-9 #### MARLEE FREEMAN ([id number]) [facility] ([facility]) [address] [place] [address] Mucus Auto (Urine sed) [#/Area] 2+ /LPF Normal Reference range not established. [facility] Comment on above: Performed By: #### 5 8077-9 #### MARLEE FREEMAN ([id number]) [facility] ([facility]) [address] [place] [address] Nitrite Auto test strip Ql (U) Negative Normal NEGATIVE [facility] Comment on above: Performed By: #### 5 8077-9 #### MARLEE FREEMAN ([id number]) [facility] ([facility]) [address] [place] [address] pH (U) 5.5 [pH] Normal 5.0, 5.5, 6.0, 6.5, 7.0, 7.5, 8.0 [facility] Comment on above: Performed By: #### 5 8077-9 #### MARLEE FREEMAN ([id number]) [facility] ([facility]) [address] [place] [address] 76326 Protein (U) [Mass/Vol] Negative Normal NEGATIVE, 10 (TRACE), 20 (TRACE) [facility] Comment on above: Performed By: #### 5 8077-9 #### MARLEE FREEMAN ([id number]) [facility] ([facility]) [address] [place] [address] 02879 RBC (U) [#/Vol] 0.1 (1+) Abnormal NEGATIVE [facility] Comment on above: Performed By: #### 5 8077-9 #### MARLEE FREEMAN ([id number]) [facility] ([facility]) [address] [place] [address] 38734 RBC Auto (Urine sed) [#/Area] 6-10 Abnormal NONE, 1-2, 3-5 [facility] Comment on above: Performed By: #### 5 8077-9 #### MARLEE FREEMAN ([id number]) [facility] ([facility]) [address] [place] [address] Specific gravity (U) [Rel density] 1.012 Normal 1.005-1.035 [facility] Comment on above: Performed By: #### 5 8077-9 #### MARLEE FREEMAN ([id number]) [facility] ([facility]) [address] [place] [address] 82329 Urobilinogen (U) [Mass/Vol] Normal Normal Normal [facility] Comment on above: Performed By: #### 5 8077-9 #### MARLEE FREEMAN ([id number]) [facility] ([facility]) [address] [place] [address] 82739 WBC Auto (Urine sed) [#/Area] 1-5 Normal 1-5, NONE [facility] Comment on above: Performed By: #### 5 8077-9 #### MARLEE FREEMAN ([id number]) [facility] ([place] [address] [place] [address] C. trachomatis+N. gonorrhoea e DNA YAS+probe Ql (Unsp spec)on 04-19-2023 C. trachomatis rRNA YAS+probe Ql (Unsp spec) Negative Negative for Chlamydia trachomatis by amplificaton [facility] N. gonorrhoeae rRNA YAS+probe Ql (Unsp spec) Negative Negative for Neisseria gonorrhoeae by amplification [facility] TRICHOMONAS VAGINALIS NAATon 04-19-2023 T. vaginalis DNA YAS+probe Ql (Unsp spec) Negative Negative for Trichomonas vaginalis by amplification [facility] HEP B SURF AG SCRNon 024 HBV surface Ag Ql (S) Negative Negative [facility] HIV 1+2 Ab IA Qlon 4 HIV 1 and 2 Ab IA.rapid Nom (S/P/Bld) [facility] HIV 1+2 Ab+HIV1 p24 Ag IA Ql Non-Reactive Nonreactive [facility] HIV immunoassay testing algorithm interpretation (S/P/Bld) [Interp] [facility] Reagin and Treponema pallidu m IgG and IgM [Interp]on 04-18-2023 T. pallidum IgG+IgM IA Ql (S) Non-Reactive Nonreactive [facility] SYPHILIS TOTAL W/REFLEXon Reagin and Treponema pallidum IgG and IgM [Interp] Cannot exclude recent Treponemal infection if specimen collected within 7-10 days after appearance of suspect lesions or 2-3 weeks after an exposure. Clinical correlation is required. [facility] CT ANGIOGRAM NECKon 03-17-19 CT ANGIOGRAM NECK EXAMINATION: CT ANGIOGRAM NECK HISTORY: ORDERING SYSTEM PROVIDED HISTORY: neck pain, fall COMPARISON: None TECHNIQUE: Standard contrast enhanced neck CT arteriogram was performed. Dose reduction techniques were achieved by using automated exposure control and/or adjustment of mA and/or kV according to patient size and/or use of iterative reconstruction technique. Carotid stenosis was measured utilizing NASCET criteria. 3D volume-rendered images were also created on a separate workstation and submitted as part of the examination. CONTRAST: IOPAMIDOL 370 MG IODINE/ML (76 %) INTRAVENOUS SOLUTION - 75 mL, FINDINGS: VASCULATURE FINDINGS: Arch AND Subclavian Arteries: Brachiocephalic and left common carotid artery share a common origin. Subclavian arteries are normal bilaterally. Common Carotids: Normal bilaterally. ICAs: Patent bilaterally to the carotid terminus. Vertebral Arteries: Patent to the confluence with the basilar artery. Left dominant vertebral system. NECK FINDINGS: No acute soft tissue abnormalities in the neck. Airway is patent. Normal thyroid. Visualized lungs are clear. No acute osseous abnormalities. IMPRESSION: No large vessel arterial occlusion, high-grade narrowing, or substantial luminal irregularity in the neck to suggest traumatic vascular injury. Workstation ID: [id number] Dictated by: LISA BOWIE on Sat Mar 17, 2022 9:51:01 PM EST Transcribed by: LISA BOWIE on Sat Mar 17, 2022 9:51:01 PM EST Finalized by: LISA BOWIE on Sat Mar 17, 2022 9:51:01 PM EST Normal [facility] Comment on above: Order Comment: Injur y/Trauma or Illness?:Injury/Trauma How long have you had these symptoms (acute/chronic)?:Acute Reason for exam?:neck pain post fall Type of Exam?:Initial Mechanism of injury?:fall Additional signs and symptoms?:fall Clinical Event Note-ED Post Discharge Result Follow Up: COVIon 11-30-2021 Clinical Event Note-ED Post Discharge Result Follow Up: COVI Clinical Event: Clinical Event Note: TopicED Post Discharge Result Follow Up: COVID (+) Details Patient tested positive for COVID during recent ED visit. ED doctor educated the patient on the positive result and proper discharge instructions (at-home care, quarantine, etc). No further follow up from EDPD team is needed. If there are any other questions for the ED Post-Discharge Culture Follow Up Team, please contact [phone]. . Pharm. JamesD. 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 This test has received FDA Emergency Use Authorization (EUA) and has been verified by [facility]. This test is only authorized for the duration of time that circumstances exist to justify the authorization of the emergency use of in vitro diagnostic tests for the detection of SARS-CoV-2 virus and/or diagnosis of COVID-19 infection under section 564(b)(1) of the Act, 21 U.S.C. 360bbb-3(b)(1), unless the authorization is terminated or revoked sooner. [facility] is certified under CLIA-88 as qualified to perform high complexity testing. Testing is performed in the [facility] laboratory located at [address] [place] [address]. SARS-CoV-2/Flu/RSV Multiplex Test: Fact sheet for providers: https://www.fda.gov/media/849002/download Fact sheet for patients: https://www.fda.gov/media/356298/download Performed By: #### C OV19 #### [place] [id number] Lab Specimen Source Nasal, Nasopharyngeal Normal [facility] Comment on above: Performed By: #### C OV19 #### [place] [id number] Performed By: #### O VPG3 #### [address] [address] Covid 19 Resultson 2 SARS-CoV-2 (COVID-19) RNA YAS+probe Ql (Unsp spec) POSITIVE COVID-19 Test Coronaviruses are common world-wide and are the cause of many common colds. SARS-COV2 is a new coronavirus that began circulating worldwide in 2019 so we are calling it COVID-19. It has been estimated that four out of five patients with COVID-19 will recover at home without the need for medical attention. Symptoms of COVID-19 may include cough, fever, shortness of breath, loss of taste or smell and other flu-like symptoms including chills, sore muscles, sore throat, and headache. Severe illness is more common in older people and people with other health problems such as high blood pressure, obesity, and immune system problems. If the test is positive, you have COVID-19. You will be contacted by the ordering physicians office and instructed to remain on home isolation, in accordance with CDC guidelines. You may also be contacted by the [facility] to see if any of your close contacts may have been exposed to the virus and need to quarantine. If the test is negative, you likely do not have COVID-19 at this time, but you still may have a different illness that can spread to other people (like Influenza, or the Flu) and could still be at risk for getting COVID-19. We recommend that you stay away from other people to limit the spread of illness until your symptoms are improving and you are fever-free for 24 hours without the use of fever lowering medications such as acetaminophen or ibuprofen. No test is 100% accurate so if you are still concerned you may have COVID-19, talk to your doctor about the need to continue to stay away from others. Medicines Unless your provider told you not to use the following: Acetaminophen (Tylenol and others) is generally safe. Anti-inflammatory medications, such as Ibuprofen (Advil or Motrin) or Naproxen (Aleve) can also be used. Slgl-ucl-thzxjuy cough and cold medicines can be used according to the instructions on the package. Some wqia-zdq-fteiizy medicines also contain acetaminophen. Make sure you are not taking more than your recommended dose. For those not hospitalized, there is no specific treatment available for this illness. Antibiotics do not treat Coronaviruses. Follow-Up Follow up with your doctor by scheduling a virtual visit or consider follow-up at one of our urgent care fever clinics. If you are having difficulty breathing, or are very weak and having difficulty standing, this is a medical emergency. Call 911 or have someone take you to the nearest emergency room immediately. If possible, wear a facemask. Additional guidance from the CDC for patients who tested POSITIVE for COVID-19 How to isolate: Isolate yourself in a specific room at home and limit your contact with others. Use a separate bathroom from other members of the household, when possible. Leave home only to get essential medical care. Do not go to work, school or public areas. Avoid using public transportation, ride-sharing, or taxis. Restrict contact with pets and other animals. If you must care for your pet or be around animals while you are sick, wash your hands before and after your interaction and wear a facemask. Make sure that shared spaces in the home have good airflow, such as by an air conditioner or an opened window, weather permitting. Personal Hygiene Procedures: Wear a face mask when in the same room as other people or pets. If a face mask interferes with your breathing, others should wear a mask when sharing space with you. Frequent hand-washing: wash your hands with soap and water for at least 20 seconds. If soap and water are not available, use alcohol-based hand reclamation kettle tender. Avoid touching your eyes, nose, and mouth with unwashed hands. Household Hygiene Procedures: Avoid sharing personal household items such as dishes, glassware, cups, eating utensils, towels or bedding with other people or pets in your home. After use, these items should be washed with soap and hot water. Disinfect all high-touch surfaces every day with antibacterial cleaning solutions such as Lysol wipes, bleach, cleansers, etc. High-touch surfaces include tabletops, doorknobs, bathroom fixtures, toilets, phones, keyboards, tablets and bedside tables. Immediately clean any surfaces that may have blood, poop or body fluids on them, using antibacterial cleaning solutions such as Lysol wipes, bleach, cleansers, etc. If clothing or bedding come into contact with blood, poop or body fluids, they should be washed immediately. Follow the directions on the laundry detergent and clothing labels but hot water is recommended when possible. Stopping home isolation precautions: If possible, consult your doctor before stopping home isolation precautions. According to the CDC, you can discontinue home isolation precautions when you have met both of these criteria: Your fever and respiratory symptoms have been gone for 24 nela (more content not included)... Normal [facility] INFLUENZA A + B PCRon 2021 INFLUENZA A, PCR Not detected Normal Not Detected [facility] Comment on above: Result Comment: Resp iratory virus testing is performed routinely by PCR for Influenza A/B and RSV. Not Detected results do not preclude Influenza A/B or RSV infections since the adequacy of sample collection or low viral burden may impact the clinical sensitivity of this test method. Performed By: #### O VPG3 #### [facility] [address] [place] [address] INFLUENZA B, PCR Not detected Normal Not Detected [facility] Comment on above: Result Comment: Resp iratory virus testing is performed routinely by PCR for Influenza A/B and RSV. Not Detected results do not preclude Influenza A/B or RSV infections since the adequacy of sample collection or low viral burden may impact the clinical sensitivity of this test method. Performed By: #### O VPG3 #### [facility] [address] [place] [address] Provider Note - ED v3on 100 Provider Note - ED v3 Provider Note: Chart Review: ED NOTES ED NOTES: Source of Information: Patient. EMR was reviewed for previous records. HPI: Flu symptoms. This 36-year-old white female presents to the ED with complaint of flulike symptoms that began yesterday with a fever of 101.6 with body aches, headache, cough, congestion shortness of breath. Patient states that she was ill approximate week ago with similar symptoms did test herself multiple times for COVID which were negative. States that she is concerned because she is having shortness of breath. Patient does admit to smoking 1/2 pack/day of cigarettes. She denies any sputum production. She states that she has been treating herself with Tylenol and ibuprofen with some relief of her symptoms nothing else seems a make her symptoms worse. PMH: Kidney stones PSH: Kidney stone surgery August 2021 Social Hx: The patient is to smoking 1/2 pack/day. Admits to occasional use of alcohol. Denies any illegal drug use. Fam: MEDS: Ibuprofen, Tylenol ALLERGIES: NKDA PHYSICAL EXAM: General: Patient alert, awake, oriented X3, appears to be in no obvious distress, nontoxic, cooperative Skin: Warm. Dry. Intact. No rash. Eyes: PEARTLA, EOMIs intact, sclera white, conjunctiva clear HEENT: Atraumatic. Normo-cephalic. Oral and nasal mucosa pink and moist. Neck: Supple without meningismus, no lymphadenopathy. CV: Heart is slightly tachycardic regular without murmur Respiratory: Nonlabored breathing. There are no retractions or tachypnea. Lungs are clear to auscultation bilaterally. GI: Soft, nontender, without gross distention, bowel sounds present in all 4 quadrants. There is no pulsatile masses. There is no CVA tenderness. No rebound, rigidity or guarding. MUSC: There is no joint swelling or bony tenderness on exam. Neuro: Cranial nerves II - XII grossly intact. No focal neurologic deficits are noted on exam. Lower extremities: There is no peripheral edema bilaterally, negative Homans sign. No palpable cords. Distal pulses are +2/4 and present in both lower extremities. Psych: Maintains eye contact. Cooperative. ED course: Patient's room air pulse ox was 99 - 100%. He was treated Tylenol for her fever and tested for influenza and COVID-19. Meets SIRS criteria but clinically she does not appear to be toxic I believe her abnormal vital signs are secondary to her fever. Patient was tested for flu and COVID-19. Patient felt that since I was in and do any x-rays that she wanted to go home and be contacted about her tests via phone. Patient's COVID-19 test did come back positive she was contacted by nursing staff via phone concerning her positive status and the need for isolation until asymptomatic for 5 days. This chart was dictated with the use of FilesX software within the framework of the current electronic medical records software. Attempts were made to edit in real time, given time constraints there is the potential for inaccuracies in my dictation. Issa Gomez, DO HISTORY OF PRESENTING ILLNESS ADRIANE is a 36 year old Female and was seen by me at 29-Nov-2021 08:20 for a chief complaint of cough (c/o cough, fever and sob on and off since last week. states she was exposed to covid.)(1). Triage Information: Most recent Vital Sign Value Date Temp (F): 100.8 11-29-2021 08:18 Temp (C): 38.2 11-29-2021 08:18 Heart Rate (beats/min): 104 11-29-2021 08:18 Respirations (breaths/min): 18 11-29-2021 08:18 SpO2 (%): 98 11-29-2021 08:18 BP Systolic (mm Hg): 129 11-29-2021 08:18 BP Diastolic (mm Hg): 92 11-29-2021 08:18 PAST MEDICAL HISTORY CURRENT OR FORMER SUBSTANCE USE: Tobacco/Nicotine Use: light user (uses <10 cig/day, OR <0.5 ppd, OR 1 can/pouch loose leaf tobacco per week, OR <0.5 vape pods per day) Alcohol Use: occasionally Drug Use: denies,ALLERGIES/INTO LERANCES: No Known Allergies HEALTH HISTORY: No documented data. OUTPATIENT MEDICATIONS: Home Medications Review Status for Reconciliation: Incomplete Med Status: Incomplete Medication History Drug Name: Cipro 250 mg oral tablet Instructions: 1 tab(s) orally 2 times a day Drug Name: Pyridium 200 mg oral tablet Instructions: 1 tab(s) orally every 8 hours, As Needed Drug Name: hydrocodone-acetamino phen 5 mg-325 mg oral tablet Instructions: 1 tab(s) orally every 8 hours Drug N (more content not included)... Normal [facility] Risk Screen - Adult Emergenc yon 11-29-2021 Risk Screen - Adult Emergency Preferred Language: Preferred Language: Preferred Language for Discussing Health Care (patient/designee)Yin gu Patient Preferred Pharmacy: Patient Preferred Pharmacy Statement: I have reviewed and updated the patient's preferred pharmacy selection for today's visit. Advanced Directives: Advance Directive/DNRno Family Violence Adult: Abuse Screen: Are you or have you been threatened or abused physically, emotionally, or sexually by anyoneno Learning Assessment (Patient): Learning Assessment (Patient): Patient is Able to be Assessed for Learningyes Factors Influencing Readiness to Learnn/a Factors that Impact Ability to Learnnone Devices/Methods Used to Communicatenone Learning Preferencesverbal instruction; written material Cultural Considerationsnone Developmental Considerationsnone Taoism Considerationsnone Learning Assessment (Other Learner): Learning Assessment (Other Learner): Other learner availableno Pressure Injury/TB/Substance: Pressure Injury: Do you have a coughyes... Has your cough lasted longer than 2 weeksno Smoking Statusmoderate user (uses 11-30 cig/day, OR 0.5-1.5 ppd, OR 2-3 cans/pouches loose leaf tobacco per week, OR 0.5-1.5 vape pods per day) Tobacco Cessation Education (provide if tobacco use within the last 12 mos) patient declined Alcohol Useoccasionally Drug Usedenies Admission Risk Screen: Significant IndicatorsComplete CAGE: CAGE: Is this an injured patient at a Trauma Center ([facility]/Sis lisbeth/[place]): no Electronic Signatures: Rita Stevenson (RN) (Signed 29-Nov-2021 08:25) Authored: Preferred Language, Patient Preferred Pharmacy, Advanced Directives, Family Violence Adult, Learning Assessment (Patient), Learning Assessment (Other Learner), Pressure Injury/TB/Substance, Pressure Injury, CAGE Last Updated: 29-Nov-2021 08:25 by Rita Stevenson (RN) [facility] Triage - EDon 11-29-2021 Triage - ED Quick Triage: Are You no Have You Given In The Last 6 Weeksno Are You Currently Breastfeedingno Chart Review: PRIMARY ASSESSMENT ABCD Normal Findings: airway open and patent, circulation normal and alert and oriented ARRIVAL INFORMATION Means of Arrival: Ambulatory Mode of Arrival: private vehicle Arrival From: home Accompanied By: spouse/significant other Language: Spoken Language Preferred: Dominican Reading Language Preferred: Dominican Present on Arrival: Device Present on Arrival to ED: no CHIEF COMPLAINT ADRIANE AVALOS is a Female patient with a chief complaint of cough (c/o cough, fever and sob on and off since last week. states she was exposed to covid.). Triage Date/Time: 29-Nov-2021 08:13 KAT: 3 Pain Rating (0-10): 6 = Moderate Pain location: generalized Vital Signs: Temperature: 100.8F ( 38.2C) taken temporal Blood Pressure: 129/92 Mean: Heart Rate: 104 Respiratory Rate: 18 Pulse Oximetry: 98% on room air, no respiratory support. Height: 5 feet 6.00 inches. 167.6 CM Weight: 139.9 pounds. Calculated 63.5 kg. (stated) Calculated BMI (kg/m2): 22.606 Calculated BSA (m2) 1.72 Darron Coma Scale: Best Eye Response: (E4) spontaneous Best Motor Response: (M6) obeys commands Best Verbal Response: (V5) oriented [place] Score: 15 Allergies: no Last menstrual period: 27-Sep-2022 Patient has homicidal thoughts: no Symptoms Are POSITIVE For: body aches, congestion, cough, dyspnea and fever. Risk Screens Suicide Risk Screen In the Past Month: Have you wished you were or wished you could go to sleep and not wake up no In the Past Month: Have you had any actual thoughts of killing yourself no In Your Lifetime: Have you ever done anything, started to do anything, or prepared to do anything to end your life no Goodson Fall Scale Screening Has the patient fallen before (or is the patient in the ED as a result of a fall) has not had a fall Does the patient have an impaired gait does not have impaired gait Is the patient cognitively impaired not cognitively impaired Interventions: Goodson Fall Interventions: LOW INTERVENTIONS: *patient oriented to surroundings and call system, * patient/family falls education completed and documented, *patients fall status communicated during bedside handoff, *whiteboard updated, *mode of toileting discussed with patient, *bed in low position with brakes locked, *call light in reach, * non-skid footwear TRAVEL HISTORY Travel History Coronavirus Screening: positive for exposure and positive for symptoms Travel Exposure History: NO travel to International locations in the past 30 days PAIN Pain Scale Used: LAYA Pain Rating (0-10): 6 = Moderate Past Medical History: Past Medical History Reviewedyes kidney stone: Past Surgical History, Active stent: Past Medical History, Active Electronic Signatures: Rita Stevenson (MARYAN) (Signed 29-Nov-2021 08:23) Entered: Risk Screens, Pain, Arrival, ABCD, Travel History, Chart Review, Scores, Past Medical History Authored: Quick Triage, Risk Screens, Pain, Arrival, ABCD, Travel History, Chart Review, Scores, Past Medical History Last Updated: 29-Nov-2021 08:23 by Rita Stevenson (MARYAN) Normal [facility] Office Visit (Urology)on Follow-up visit Diagnoses/Problems Assessed Right ureteral stone (592.1) (N20.1) Patient Discussion/Summary Stone analysis reviewed Stone prevention discussed. Diet reviewed. Discussed fluid intake Will follow small renal stone Treatment options for LUTS reviewed Lifestyle change to help prevent UTIs discussed. Encouraged fluid intake. F/U 1 year with [facility] Chief Complaint An interactive audio and video telecommunication system which permits real time communications between the patient (at the originating site) and provider (at the distant site) was utilized to provide this telehealth service. Verbal consent was requested and obtained from ADRIANE AVALOS on this date, 09/28/2021 12:30 PM , for a telehealth visit. stone analysis results History of Present IllnessPatient is here for stone analysis results. S/P Right Ureteroscopy on 09/14/21. Chronic LUT'S sx are mild and stable. Denies urgency and frequency. Denies dysuria. Denies hematuria. Nocturia x1. No medication for LUT'S. Review of Systems Constitutional: No fever, No chills. Eye: Negative. Ear/Nose/Mouth/Throat : Negative. Respiratory: No shortness of breath, No cough. Cardiovascular: No chest pain, No peripheral edema. Gastrointestinal: No nausea, Genitourinary: Negative except as documented in history of present illness. Hematology/Lymphatics : Patient denies being on blood thinners.. Endocrine: Negative. Immunologic: Not immunocompromised. Musculoskeletal: Negative Integumentary: Negative. Neurologic: Alert and oriented X4. Psychiatric: Negative. Active Problems Problems Anxiety (300.00) (F41.9) Chest tightness (786.59) (R07.89) Chest wall pain (786.52) (R07.89) Chronic constipation (564.00) (K59.09) Cough (786.2) (R05.9) Diarrhea, unspecified type (787.91) (R19.7) Gastritis (535.50) (K29.70) Hookworm, Citizen [place] (126.1) (B76.1) Parasite infestation (134.9) (B89) Right ureteral stone (592.1) (N20.1) Skin infection (686.9) (L08.9) Stuffy and runny nose (478.19) (J34.89) Surgical History Problems No history of surgery Family History Maternal Grandmother Family history of malignant neoplasm of breast (V16.3) (Z80.3) Social History Problems Current some day smoker (305.1) (F17.200) social smoker on weekends No advance directives (V49.89) (Z78.9) No recent foreign travel Allergies Medication No Known Drug Allergies Recorded By: Breanne Gutiérrez; 08/18/2019 3:38:15 PM Current Meds Medication NameInstruction ALPRAZolam 0.5 MG Oral Tablet0.5 - 1 tabs 3 times daily as needed Benadryl Allergy TABS Emverm 100 MG Oral Tablet ChewableCHEW AND SWALLOW 1 TABLET TWICE DAILY FOR 3 DAYS Fluticasone Propionate 50 MCG/ACT Nasal Suspensioninstill 1 spray into each nostril once daily Ventolin HFA 108 (90 Base) MCG/ACT Inhalation Aerosol SolutionINHALE 1 TO 2 PUFFS EVERY 4 TO 6 HOURS NEEDED. Zyrtec TABS Physical Exam No physical exam done given the virtual nature of the visit Signatures Electronically signed by : Azael Hinds II, MD; Sep 28 2021 12:07PM EST (Author) [email or web address] Surgical pathology studyon 0 09-25-2021 CONVERTED CLINICAL DIAGNOSIS-HISTORY Clinical Diagnosis History UETER CALCULI [facility] CONVERTED FINAL DIAGNOSIS A. STONE CALCULI: --GROSS DIAGNOSIS ONLY: CALCULUS MATERIAL, SENT FOR STONE ANALYSIS. [facility] CONVERTED FINAL REPORT PDF LINK TO COPY AND PASTE \\copathshare\copath\ PDF \[id number] .pdf [facility] CONVERTED GROSS DESCRIPTION Received fresh, labeled with the patient's name and hospital number and stone calculus, are two calculi aggregating to 0.4 x 0.3 x 0.2 cm. Tissue is not received with the specimen. A photograph has been taken. The stones are sent for stone analysis. The specimen is for gross examination only. [facility] Pathology Report Name ADRIANE AVALOS Pathologist: PETE JEFFERSON Date of Procedure: 09/14/2021 Date Received: 09/15/2021 Date Reported 09/25/2021 Submitting Physician: AZAEL HINDS II, MD Location: [facility] Other External # FINAL DIAGNOSIS A. STONE CALCULI: --GROSS DIAGNOSIS ONLY: CALCULUS MATERIAL, SENT FOR STONE ANALYSIS. Electronically Signed Out By PETE JEFFERSON/IDALMIS By the signature on this report, the individual or group listed as making the Final Interpretation/Diagno sis certifies that they have reviewed this case. Diagnostic interpretation performed [facility] [address] [facility] [address] [facility] [address] Clinical History: Clinical Diagnosis History UETER CALCULI Specimens Submitted As: A: STONE CALCULI Gross Description: Received fresh, labeled with the patient's name and hospital number and stone calculus, are two calculi aggregating to 0.4 x 0.3 x 0.2 cm. Tissue is not received with the specimen. A photograph has been taken. The stones are sent for stone analysis. The specimen is for gross examination only. [facility] rcc/09/16/2021 [facility] Department of Pathology [address] [place] [address] [facility] CALCULI [STONE] ANALYSISon 0 09-22-2021 CALCULI COMPOSITION See Note Merged with [facility] Comment on above: Result Comment: Calc malcolm composed primarily of: 30% calcium oxalate monohydrate, 10% calcium oxalate dihydrate, and 60% calcium phosphate (hydroxy- and carbonate- apatite). INTERPRETIVE INFORMATION: Calculi (Stone) analysis Calculi are the products of physiological processes that yield crystalline compounds in a matrix of biological compounds and blood. Matrix components are not reported. The clinically significant crystalline components identified in calculi specimens are reported. Gross description may not be consistent with composition determined by FTIR analysis. Performed By: [email or web address] [address] [place] [address] Department: Austin Dolan MD, PhD Performed By: #### C ALCU #### [email or web address] [address] [place] [id number] DESCRIPTION See Note [facility] Comment on above: Result Comment: Spec imen consists of two brown and carlton calculi fragments. The total weight is 6 mg. Performed By: #### C ALCU #### [email or web address] [address] [place] [address] WEIGHT 6 mg [facility] Comment on above: Performed By: #### C ALCU #### [email or web address] [address] [place] [address] ABDOMEN AP VIEWon 09-18-2021 ABDOMEN AP VIEW Patient Name: ADRIANE AVALOS STUDY: ABDOMEN AP VIEW; 09/18/2021 2:02 am INDICATION: Ureteral stent. COMPARISON: CT abdomen pelvis 09/14/2021 ACCESSION NUMBER(S): [id number] ORDERING CLINICIAN: JOSEPH GALLEGOS FINDINGS: A right-sided double-J stent is present. The distal loop overlies the lower pelvis and suspected location of the bladder. The proximal loop overlies the right lower abdomen, slightly lower than the expected level of the renal pelvis, even with the position of the kidney being inferiorly displaced on prior CT Nonobstructive bowel gas pattern. Visualized lungs are clear. Osseous structures demonstrate no acute bony changes. IMPRESSION: A right-sided double-J stent is present with the proximal loop slightly lower than expected even though the right kidney is inferiorly displaced on prior CT. Consider repeat CT if there is clinical concern for a malpositioned stent in the setting of pain. Electronically signed by: JORGE BANKS MD Normal [facility] HCG,URINEon 09-18-2021 Beta HCG ( test) Ql (U) Negative Normal Negative [facility] Comment on above: Performed By: #### H [place] #### [place] [id number] Office Visit (Urology)on Follow-up visit Diagnoses/Problems Assessed Right ureteral stone (592.1) (N20.1) Current some day smoker (305.1) (F17.200) social smoker on weekends Orders Right ureteral stone Follow-up visit in 2 weeks Outpatient Follow-up STONE ANALYSIS Status: Hold For - Scheduling Requested for: [id number] Ordered Stat;For: Right ureteral stone; Ordered By: Azael Hinds II Performed: Due: 17Dec2021 SocHx: Current some day smoker Tobacco Use Screening; Status:Complete; Done: [id number] Perform:Not Applicable;Ordered; For:SocHx: Current some day smoker; Ordered By:Henrietta Barrientos; Chief Complaint RIGHT URETERAL STONE Active Problems Problems Anxiety (300.00) (F41.9) Chest tightness (786.59) (R07.89) Chest wall pain (786.52) (R07.89) Chronic constipation (564.00) (K59.09) Cough (786.2) (R05.9) Diarrhea, unspecified type (787.91) (R19.7) Gastritis (535.50) (K29.70) Hookworm, Citizen [place] (126.1) (B76.1) Parasite infestation (134.9) (B89) Skin infection (686.9) (L08.9) Stuffy and runny nose (478.19) (J34.89) Surgical History Problems No history of surgery Family History Maternal Grandmother Family history of malignant neoplasm of breast (V16.3) (Z80.3) Social History Problems Current some day smoker (305.1) (F17.200) social smoker on weekends No advance directives (V49.89) (Z78.9) No recent foreign travel Allergies Medication No Known Drug Allergies Recorded By: Breanne Gutiérrez; 08/18/2019 3:38:15 PM Current Meds Medication NameInstruction ALPRAZolam 0.5 MG Oral Tablet0.5 - 1 tabs 3 times daily as needed Benadryl Allergy TABS Emverm 100 MG Oral Tablet ChewableCHEW AND SWALLOW 1 TABLET TWICE DAILY FOR 3 DAYS Fluticasone Propionate 50 MCG/ACT Nasal Suspensioninstill 1 spray into each nostril once daily Ventolin HFA 108 (90 Base) MCG/ACT Inhalation Aerosol SolutionINHALE 1 TO 2 PUFFS EVERY 4 TO 6 HOURS NEEDED. Zyrtec TABS Vitals Vital Signs Recorded: [id number] 11:43AM Heart Rate70 Hgnsdrxs417 [id number] Height5 ft 7 in Enzmxc782 lb 6 oz BMI Zrsucdxyvt18.67 kg/m2 BSA Calculated1.73 Tobacco Usea) Yes PHQ-2 Patient Declined/Screening not indicatedYes Falls Screening (Age 18+)a) No falls within the last year Procedure The patient was prepped using a Betadine solution. Lidocaine jelly was instilled into the urethra. The flexible cystoscope was sterilely inserted into the urethra and formal cystoscopy performed in a systematic fashion. . For detailed findings of the procedure, please see Dr. Hinds's remarks below SCOPE B USED, PATIENT IS ON KEFLEX STENT REMOVED. NORMAL CYSTO F/U 2 WEEKS TO REVIEW STONE ANALYSIS Signatures Electronically signed by : Azael Hinds II, MD; Sep 18 2021 12:50PM EST (Author) [email or web address] Provider Note - ED v3on 07-2 Provider Note - ED v3 Provider Note: Chart Review: ED NOTES ED NOTES: This is a 36-year-old female who presents with pain in her lower quadrant. She recently had stent placement in her right ureter with Dr. Hinds on 09/14, states she was feeling very well after the procedure. Then today she started noticing worsening pain. Denied any fevers or chills. Notes nausea but no vomiting. Denied any prior abdominal surgeries. Denies any vaginal bleeding or vaginal discharge. No back pain or CVA tenderness. She is supposed to call Dr. Hinds's office this week in order to have the stent removed. HISTORY OF PRESENTING ILLNESS ADRIANE is a 36 year old Female and was seen by me at 17-Sep-2021 22:27 for a chief complaint of other (SP kidney stone surgery with stent placement 2 days ago. C/O severe pain and feels like she has another kidney stone.)(1). The historian is the patient. Triage Information: Most recent Vital Sign Value Date Temp (F): 100.1 09-17-2021 22:28 Temp (C): 37.8 09-17-2021 22:28 Heart Rate (beats/min): 75 09-17-2021 22:28 Respirations (breaths/min): 20 09-17-2021 22:28 SpO2 (%): 97 09-17-2021 22:28 BP Systolic (mm Hg): 123 09-17-2021 22:28 BP Diastolic (mm Hg): 84 09-17-2021 22:28 PAST MEDICAL HISTORY CURRENT OR FORMER SUBSTANCE USE: Tobacco/Nicotine Use: never smoker Alcohol Use: denies Drug Use: denies,ALLERGIES/INTO LERANCES: No Known Allergies HEALTH HISTORY: No documented data. OUTPATIENT MEDICATIONS: Home Medications Review Status for Reconciliation: Not Done Med Status: Patient Currently Takes Medications Drug Name: Cipro 250 mg oral tablet Instructions: 1 tab(s) orally 2 times a day Drug Name: Pyridium 200 mg oral tablet Instructions: 1 tab(s) orally every 8 hours, As Needed Drug Name: hydrocodone-acetamino phen 5 mg-325 mg oral tablet Instructions: 1 tab(s) orally every 8 hours Drug Name: cephalexin 500 mg oral tablet Instructions: 1 tab(s) orally 4 times a day SIGNIFICANT EVENTS: Clinical Events Description:Surgical Procedure Additional Notes:1. CYSTO R RPG R UETER W/CRISTIANO R STENT; Past Medical History Description:stent Past Surgical History Description:kidney stone REVIEW OF SYSTEMS CONSTITUTIONAL: Negative for: chills and fever CARDIOVASCULAR: Negative for: chest pain RESPIRATORY: Negative for: cough and dyspnea GASTROINTESTINAL: POSITIVE for: abdominal pain (RLQ pain) and nausea; Negative for: diarrhea and vomiting; GENITOURINARY: POSITIVE for: dysuria, frequency and hematuria; Negative for: vaginal bleeding and vaginal discharge; MUSCULOSKELETAL: Negative for: back pain, sensory deficits, stiffness and weakness NEUROLOGICAL: Negative for: dizziness and loss of consciousness; All other systems reviewed and are negative PHYSICAL EXAM CONSTITUTIONAL: Well appearing, well nourished, awake, alert, oriented to person, place, time/situation and in no apparent distress. CARDIOVASCULAR: RRR RESPIRATORY: Breath sounds clear and equal bilaterally. GASTROINTESTINAL: Abdomen soft, no abdominal tenderness to palpation, negative Meadows sign, no pain at McBurney's point, no CVA tenderness to percussion MUSCULOSKELETAL: Spine appears normal, range of motion is not limited, no muscle or joint tenderness. NEUROLOGICAL: Alert and oriented, no focal deficits, no motor or sensory deficits. SKIN: Skin normal color for race, warm, dry and intact. No evidence of trauma. CRITICAL CARE RESULTS: Recent Lab Results: I have reviewed these laboratory results: Urinalysis 18-Sep-2021 00:19:00 ResultValue Color, Urine [place] Reference Range: STRAW,YELLOW Appearance, Urine HAZY Specific [place], Urine 1.019 pH, Urine 6.0 Protein, Urine >=500(3+) A Glucose, Urine NEGATIVE Blood, Urine LARGE(3+) A Ketones, Urine NEGATIVE Bilirubin, Urine NEGATIVE Urobilinogen, Urine 4.0 H Nitrite, Urine Positive A Leukocyte Esterase, Urine TRACE A Urine Test 18-Sep-2021 00:19:00 ResultValue HCG, Urine NEGATIVE Urinalysis, Microscopic 18-Sep-2021 00:19:00 ResultValue White Cells 42 A Red Blood Cells >182 A Epithelial Cells, Squamous 1 Radiology Results: Impression: A right-sided double-J stent is present with the proximal loop slightly lower than expected even though the right kidney is inferiorly displaced on prior CT. Considerrepeat CT if there is clinical concern for a malpositioned stent in the setting of pain. Xray Abdomen AP View [Sep 18 2021 2:58AM] VITAL SIGNS: T PRBP SpO2O2(LPM) %FiO2 Method 18-Sep-2021 02:00:[id number] 98 18-Sep-2021 01:30:[id number] 97 17-Sep-2021 23:37:[id number] 97 17-Sep-2021 22:28:[id number]/ 84 97 room air, no respiratory support MDM MDM/ED COURSE: This is a young female who was recently diagnosed with kidney stones. She had a ureteral stent put in the right side on September [address] Hinds (more content not included)... Normal [facility] Rad[facility]on 09-18-2021 XR Abdomen AP Normal [facility]- [employer] Phone: Risk Screen - Adult Emergenc yon 09-18-2021 Risk Screen - Adult Emergency Preferred Language: Preferred Language: Preferred Language for Discussing Health Care (patient/designee)Yin gu Advanced Directives: Advance Directive/DNRno Family Violence Adult: Abuse Screen: Are you or have you been threatened or abused physically, emotionally, or sexually by anyoneno Learning Assessment (Patient): Learning Assessment (Patient): Patient is Able to be Assessed for Learningyes Factors Influencing Readiness to Learnpain Factors that Impact Ability to Learnnone Devices/Methods Used to Communicatenone Learning Preferenceswritten material Cultural Considerationsnone Developmental Considerationsnone Taoism Considerationsnone Other Learnersnone Learning Assessment (Other Learner): Learning Assessment (Other Learner): Other learner availableno Pressure Injury/TB/Substance: Pressure Injury: Pressure Injury Present on Admissionno Do you have a coughno Smoking Statusmoderate user (uses 11-30 cig/day, OR 0.5-1.5 ppd, OR 2-3 cans/pouches loose leaf tobacco per week, OR 0.5-1.5 vape pods per day) Tobacco Cessation Education (provide if tobacco use within the last 12 mos) patient declined Alcohol Useoccasionally Drug Usedenies Drug 2 Usedenies Admission Risk Screen: Significant IndicatorsComplete CAGE: CAGE: Is this an injured patient at a Trauma Center ([facility] no Electronic Signatures: Brittny Porter (SUPV) (Signed 17-Sep-2021 22:52) Authored: Preferred Language, Advanced Directives, Family Violence Adult, Learning Assessment (Patient), Learning Assessment (Other Learner), Pressure Injury/TB/Substance, Pressure Injury, CAGE Last Updated: 17-Sep-2021 22:52 by Brittny Porter (SUPV) [facility] Tobacco Screening.on 022 Fall risk assessment a) No falls within the last year QL-Bejvnjs-Qth land Work Phone: Tobacco use status CPHS a) Yes FB-Tuqxbup-Hfn land Work Phone: Tobacco Screening. Yes MP-Uro logy-[employer] Work Phone: Triage - EDon 09-18-2021 Triage - ED Quick Triage: Are You no Have You Given In The Last 6 Weeksno Are You Currently Breastfeedingno The patient and/or guardian verbally acknowledges placement for services into the following (when Urgent Care Service hours are operating):emergency department Chart Review: ARRIVAL INFORMATION Mode of Arrival: private vehicle CHIEF COMPLAINT ADRIANE AVALOS is a Female patient with a chief complaint of other (SP kidney stone surgery with stent placement 2 days ago. C/O severe pain and feels like she has another kidney stone.). Onset of the Complaint: 17-Sep-2021 Triage Date/Time: 17-Sep-2021 22:28 KAT: 3 Pain Rating (0-10): 10 = Severe Vital Signs: Temperature: 100.1F ( 37.8C) taken temporal Blood Pressure: 123/84 Mean: Heart Rate: 75 Respiratory Rate: 20 Pulse Oximetry: 97% on room air, no respiratory support. Height: 5 feet 7.00 inches. 170.1 CM Weight: 154.3 pounds. Calculated 70.0 kg. (stated) Calculated BMI (kg/m2): 24.192 Calculated BSA (m2) 1.82 Darron Coma Scale: Best Eye Response: (E4) spontaneous Best Motor Response: (M6) obeys commands Best Verbal Response: (V5) oriented [place] Score: 15 Cough lasting greater than 3 weeks: no Patient immunocompromised related to: N/A Allergies: no Last menstrual period: 04-Sep-2021 unknown [employer]IOR [employer] History: (N/A had vasectomy) Patient has homicidal thoughts: no Last Known Well: unknown Risk Screens Suicide Risk Screen In the Past Month: Have you wished you were or wished you could go to sleep and not wake up no In the Past Month: Have you had any actual thoughts of killing yourself no In Your Lifetime: Have you ever done anything, started to do anything, or prepared to do anything to end your life no Goodson Fall Scale Screening Has the patient fallen before (or is the patient in the ED as a result of a fall) has not had a fall Does the patient have an impaired gait does not have impaired gait Is the patient cognitively impaired not cognitively impaired Interventions: Goodson Fall Interventions: LOW INTERVENTIONS: *patient oriented to surroundings and call system, * patient/family falls education completed and documented, *patients fall status communicated during bedside handoff, *whiteboard updated, *mode of toileting discussed with patient, *bed in low position with brakes locked, *call light in reach, * non-skid footwearlow interventions except: patient oriented to surroundings and call systemlow interventions except: patient/family falls education completed and documentedlow interventions except: patients fall status communicated during bedside handoff, whiteboard updatedlow interventions except: mode of toileting discussed with patientlow interventions except: bed in low position with brakes lockedlow interventions except: call light in reach and low interventions except: non-skid footwear TRAVEL HISTORY Travel History Coronavirus Screening: no exposure or symptoms and congregate living Coronavirus Screening Details: No COVID vaccine Travel Exposure History: NO travel to International locations in the past 30 days PAIN Pain Scale Used: LAYA Pain Rating (0-10): 10 = Severe Past Medical History: Past Medical History Reviewedyes kidney stone: Past Surgical History, Active stent: Past Medical History, Active Electronic Signatures: Brittny Porter (SUPV) (Signed 17-Sep-2021 22:51) Authored: Quick Triage, Risk Screens, Pain, Travel History, Chart Review, Scores, Past Medical History Last Updated: 17-Sep-2021 22:51 by Brittny Porter (SUPV) Normal [facility] UA MICROSCOPICon 09-18-2021 RBC (U) [#/Vol] /uL Abnormal 0-5 [facility] Comment on above: Performed By: #### U AMIC #### [address] [address] SQUAMOUS EPITH. CELLS 1 /HPF Normal [facility] Comment on above: Performed By: #### U AMIC #### [address] [address] WBC 42 /HPF Abnormal 0-5 [facility] Comment on above: Performed By: #### U AMIC #### [address] [address] URINALYSISon 09-18-2021 Appearance (U) HAZY Normal CLEAR [facility] Comment on above: Performed By: #### U A #### [address] [address] Bilirubin Ql (U) Negative Normal NEGATIVE [facility] Comment on above: Performed By: #### U A #### [address] [address] Color (U) [place] Normal STRAW,YELLOW [facility] Comment on above: Performed By: #### U A #### [address] [address] Glucose Ql (U) Negative Normal NEGATIVE [facility] Comment on above: Performed By: #### U A #### [address] [address] Hemoglobin Ql (U) LARGE(3+) Abnormal NEGATIVE [facility] Comment on above: Performed By: #### U A #### [address] [address] Ketones Ql (U) Negative Normal NEGATIVE [facility] Comment on above: Performed By: #### U A #### [address] [address] Leukocyte esterase Test strip Ql (U) TRACE Abnormal NEGATIVE [facility] Comment on above: Performed By: #### U A #### [address] [address] Nitrite Ql (U) Positive Abnormal NEGATIVE [facility] Comment on above: Performed By: #### U A #### [address] [address] pH (U) 6.0 [pH] Normal 5.0 - 8.0 [facility] Comment on above: Performed By: #### U A #### [address] [address] Protein Ql (U) >=500(3+) Abnormal NEGATIVE [facility] Comment on above: Performed By: #### U A #### [address] [address] Specific gravity (U) [Rel density] 1.019 Normal 1.005 - 1.035 [facility] Comment on above: Performed By: #### U A #### [address] [address] Urobilinogen (U) [Mass/Vol] 4.0 mg/dL High 0.0 - 1.9 [facility] Comment on above: Result Comment: SOME PIGMENTS AND MEDICATIONS MAY CAUSE A FALSE POSITIVE UROBILINOGEN Performed By: #### U A #### [address] [address] Urinalysison 09-18-2021 Color (U) [place] See Below [employer] Work Phone: Comment on above: Reference Range: STR AW,YELLOW Glucose Ql (U) Negative NEGATIVE [employer] Work Phone: Ketones Ql (U) Negative NEGATIVE [employer] TESARO Work Phone: Leukocyte esterase Test strip Ql (U) TRACE Abnormal NEGATIVE BV-Djyhwbw-Wor land Work Phone: pH (U) 6.0 [pH] 5.0 - 8.0 NF-Iaajyxw-Ock land Work Phone: Protein (U) [Mass/Vol] >=500(3+) Abnormal NEGATIVE XE-Lgslmck-Elx land Work Phone: RBC (U) [#/Vol] LARGE(3+) Abnormal NEGATIVE [employer] yTESARO Work Phone: Specific gravity (U) [Rel density] 1.019 1 See Below CZ-Npepdne-Qgp land Work Phone: Comment on above: Reference Range: 1.0 05 - 1.035 Urinalysis Positive Abnormal NEGATIVE KN-Rfzbxcl-Rvq land Work Phone: Urinalysis 4.0 mg/dL above high threshold 0.0 - 1.9 NU-Xdeofbp-Ezi land Work Phone: Comment on above: SOME PIGMENTS AND ME DICATIONS MAY CAUSE AFALSE POSITIVE UROBILINOGEN Urinalysis Negative NEGATIVE WK-Kekujyf-Dgo opvizor Work Phone: Urinalysis HAZY CLEAR IW-Cvgtvfe-Lca land Work Phone: Urinalysis, Microscopicon Urinalysis, Microscopic 1 {/HPF} RM-Wkymewe-Bit land Work Phone: Urinalysis, Microscopic >182 Abnormal 0-5 LR-Ixujyck-Edv land Work Phone: Urinalysis, Microscopic 42 {/HPF} Abnormal 0-5 CZ-Trppmpx-Mcb land Work Phone: Urine Teston 09-18 HCG ( test) Ql (U) Negative Negative UL-Fwnxrns-Nox land Work Phone: Bacteria identified Cx Nom ( U)on 09-15-2021 PATIENT: ADRIANE AVALOS LOCATION: [facility]#: [id number] : 87 AGE: SEX: F ORDERED BY: AHMET CARCAMO SOURCE: URINE COLLECTED: 09/14/21 09:24 ANTIBIOTICS AT ILDA.: RECEIVED : 09/14/21 17:25 SITE: R E S U L T S URINE CULTURE,BACTERIAL FINAL 09/15/21 11:04 NO SIGNIFICANT GROWTH. SOFT CONVERSION [facility] CBC AND DIFFERENTIALon 09-14 Basophils (Bld) [#/Vol] 0.10 10*3/uL Normal 0.00 - 0.10 [facility] Comment on above: Performed By: #### O VPG3 #### [facility] [address] [place] [address] Basophils/100 WBC (Bld) 0.9 % Normal 0.0 - 2.0 [facility] Comment on above: Performed By: #### O VPG3 #### [facility] [address] [place] [address] Eosinophils (Bld) [#/Vol] 0.30 10*3/uL Normal 0.00 - 0.70 [facility] Comment on above: Performed By: #### O VPG3 #### [facility] [address] [place] [address] Eosinophils/100 WBC (Bld) 4.4 % Normal 0.0 - 6.0 [facility] Comment on above: Performed By: #### O VPG3 #### [facility] [address] [place] [address] Erythrocyte distribution width (RBC) [Ratio] 13.8 % Normal 11.5 - 14.5 [facility] Comment on above: Performed By: #### O VPG3 #### [facility] [address] [place] [address] Hematocrit (Bld) [Volume fraction] 41.0 % Normal 36.0 - 46.0 [facility] Comment on above: Performed By: #### O VPG3 #### [facility] [address] [place] [address] Hemoglobin (Bld) [Mass/Vol] 14.1 g/dL Normal 12.0 - 16.0 [facility] Comment on above: Performed By: #### O VPG3 #### [facility] [address] [place] [address] Lymphocytes (Bld) [#/Vol] 3.10 10*3/uL Normal 1.20 - 4.80 [facility] Comment on above: Performed By: #### O VPG3 #### [facility] [address] [place] [address] Lymphocytes/100 WBC (Bld) 39.9 % Normal 13.0 - 44.0 [facility] Comment on above: Performed By: #### O VPG3 #### [facility] [address] [place] [address] MCHC (RBC) [Mass/Vol] 34.3 g/dL Normal 32.0 - 36.0 [facility] Comment on above: Performed By: #### O VPG3 #### [facility] [address] [place] [address] MCV (RBC) [Entitic vol] 89 fL Normal 80 - 100 [facility] Comment on above: Performed By: #### O VPG3 #### [facility] [address] [place] [address] Monocytes (Bld) [#/Vol] 0.60 10*3/uL Normal 0.10 - 1.00 [facility] Comment on above: Performed By: #### O VPG3 #### [facility] [address] [place] [address] Monocytes/100 WBC (Bld) 7.5 % Normal 2.0 - 10.0 [facility] Comment on above: Performed By: #### O VPG3 #### [facility] [address] [place] [address] Neutrophils (Bld) [#/Vol] 3.70 10*3/uL Normal 1.20 - 7.70 [facility] Comment on above: Result Comment: Perc ent differential counts (%) should be interpreted in the context of the absolute cell counts (cells/L). Performed By: #### O VPG3 #### [facility] [address] [place] [address] Neutrophils/100 WBC (Bld) 47.3 % Normal 40.0 - 80.0 [facility] Comment on above: Performed By: #### O VPG3 #### [facility] [address] [place] [address] Platelets (Bld) [#/Vol] 313 10*3/uL Normal 150 - 450 [facility] Comment on above: Performed By: #### O VPG3 #### [facility] [address] [place] [address] RBC 4.63 x10E12/L Normal 4.00 - 5.20 [facility] Comment on above: Performed By: #### O VPG3 #### [facility] [address] [place] [address] WBC (Bld) [#/Vol] 7.8 10*3/uL Normal 4.4 - 11.3 [facility] Comment on above: Performed By: #### O VPG3 #### [facility] [address] [place] [address] CBC W Auto Differential pane l (Bld)on 09-14-2021 Basophils (Bld) [#/Vol] 0.10 10*3/uL [facility] Basophils/100 WBC (Bld) 0.9 % 0.0 - 2.0 % [facility] Eosinophils (Bld) [#/Vol] 0.30 10*3/uL [facility] Eosinophils/100 WBC (Bld) 4.4 % 0.0 - 6.0 % [facility] Erythrocyte distribution width (RBC) [Ratio] 13.8 % 11.5 - 14.5 % [facility] Hematocrit (Bld) [Volume fraction] 41.0 % 36.0 - 46.0 % [facility] Hemoglobin (Bld) [Mass/Vol] 14.1 g/dL 12.0 - 16.0 g/dL [facility] Lymphocytes (Bld) [#/Vol] 3.10 10*3/uL [facility] Lymphocytes/100 WBC (Bld) 39.9 % 13.0 - 44.0 % [facility] MCHC (RBC) [Mass/Vol] 34.3 g/dL 32.0 - 36.0 g/dL [facility] MCV (RBC) [Entitic vol] 89 fL 80 - 100 fL [facility] Monocytes (Bld) [#/Vol] 0.60 10*3/uL [facility] Monocytes/100 WBC (Bld) 7.5 % 2.0 - 10.0 % [facility] Neutrophils (Bld) [#/Vol] 3.70 10*3/uL [facility] Comment on above: Percent differential counts (%) should be interpreted in the context of the absolute cell counts (cells/L). Neutrophils/100 WBC (Bld) 47.3 % 40.0 - 80.0 % [facility] Platelets (Bld) [#/Vol] 313 10*3/uL [facility] RBC (Bld) [#/Vol] 4.63 10*6/uL [facility] WBC (Bld) [#/Vol] 7.8 10*3/uL [facility] COMPREHENSIVE PANELon 2021 Albumin [Mass/Vol] 4.2 g/dL Normal 3.4 - 5.0 [facility] Comment on above: Performed By: #### C MP #### [address] [address] ALP [Catalytic activity/Vol] 54 U/L Normal 33 - 110 [facility] Comment on above: Performed By: #### C MP #### [address] [address] ALT [Catalytic activity/Vol] 19 U/L Normal 7 - 45 [facility] Comment on above: Result Comment: Ingrid ents treated with Sulfasalazine may generate falsely decreased results for ALT. Performed By: #### C MP #### [address] [address] Anion gap [Moles/Vol] 10 mmol/L Normal 10 - 20 [facility] Comment on above: Performed By: #### C MP #### [address] [address] AST [Catalytic activity/Vol] 16 U/L Normal 9 - 39 [facility] Comment on above: Performed By: #### C MP #### [address] [address] Bilirubin [Mass/Vol] 0.5 mg/dL Normal 0.0 - 1.2 [facility] Comment on above: Performed By: #### C MP #### [address] [address] Calcium [Mass/Vol] 8.5 mg/dL Low 8.6 - 10.3 [facility] Comment on above: Performed By: #### C MP #### [address] [address] Chloride [Moles/Vol] 106 mmol/L Normal 98 - 107 [facility] Comment on above: Performed By: #### C MP #### [address] [address] Creatinine [Mass/Vol] 0.92 mg/dL Normal 0.50 - 1.05 [facility] Comment on above: Performed By: #### C MP #### [address] [address] GFR/1.73 sq M.predicted among non-blacks MDRD (S/P/Bld) [Vol rate/Area] 83 mL/min/{1.73_m2} Normal >90 [facility] Comment on above: Result Comment: CALC ULATIONS OF ESTIMATED GFR ARE PERFORMED USING THE 2020 CKD-EPI STUDY REFIT EQUATION WITHOUT THE RACE VARIABLE FOR THE IDMS-TRACEABLE CREATININE METHODS. https://jasn.asnjournals.org/content/early//ASN.447598 8952 Performed By: #### C MP #### [address] [address] Glucose [Mass/Vol] 100 mg/dL High 74 - 99 [facility] Comment on above: Performed By: #### C MP #### [address] [address] HCO3 (Bld) [Moles/Vol] 27 mmol/L Normal 21 - 32 [facility] Comment on above: Performed By: #### C MP #### [address] [address] Potassium [Moles/Vol] 4.1 mmol/L Normal 3.5 - 5.3 [facility] Comment on above: Performed By: #### C MP #### [address] [address] Protein [Mass/Vol] 6.7 g/dL Normal 6.4 - 8.2 [facility] Comment on above: Performed By: #### C MP #### [address] [address] Sodium [Moles/Vol] 139 mmol/L Normal 136 - 145 [facility] Comment on above: Performed By: #### C MP #### [address] [address] Urea nitrogen [Mass/Vol] 16 mg/dL Normal 6 - 23 [facility] Comment on above: Performed By: #### C MP #### [address] [address] CORONAVIRUS 2019 BY PCRon Lab Specimen Source Nasal, Nasopharyngeal Normal [facility] Comment on above: Performed By: #### C OV19 #### [place] [id number] SARS-CoV-2 (COVID-19) RNA YAS+probe Ql (Unsp spec) Not detected Normal Not Detected [facility] Comment on above: Result Comment: . This test has received FDA Emergency Use Authorization (EUA) and has been verified by [facility]. This test is only authorized for the duration of time that circumstances exist to justify the authorization of the emergency use of in vitro diagnostic tests for the detection of SARS-CoV-2 virus and/or diagnosis of COVID-19 infection under section 564(b)(1) of the Act, 21 U.S.C. 360bbb-3(b)(1), unless the authorization is terminated or revoked sooner. [facility] is certified under CLIA-88 as qualified to perform high complexity testing. Testing is performed in the [facility] laboratory located at [address] [place] [address]. SARS-CoV-2/Flu/RSV Multiplex Test: Fact sheet for providers: https://www.fda.gov/media/448314/download Fact sheet for patients: https://www.fda.gov/media/920014/download Performed By: #### C OV19 #### [place] [id number] CT ABDOMEN AND PELVIS W IV C Syd 09-14-2021 CT ABDOMEN AND PELVIS W IV CONTRAST Patient Name: ADRIANE AVALOS STUDY: CT ABDOMEN AND PELVIS W IV CONTRAST; 09/14/2021 10:11 am INDICATION: stable. Right lower quadrant pain COMPARISON: 02/18/2016 ACCESSION NUMBER(S): [id number] ORDERING CLINICIAN: AHMET CARCAMO TECHNIQUE: CT of the abdomen and pelvis was performed. Standard contiguous axial images were obtained at 3 mm slice thickness through the abdomen and pelvis. Coronal and sagittal reconstructions at 3 mm slice thickness were performed. 90 milliliter OMNIPAQUE 350 contrast administered intravenously without immediate complication. FINDINGS: LOWER CHEST: Unremarkable. ABDOMEN: LIVER: There is periportal edema present. The liver density is normal. The size is mildly enlarged. Smooth surface contour. Patent hepatic vasculature. No focal lesion is evident. GALLBLADDER: Normal size gallbladder. No radiopaque gallstones. BILE DUCTS: Normal caliber. PANCREAS: The pancreas appears within normal limits, no evidence of pancreatitis or mass. SPLEEN: Normal size. Homogeneous enhancement. ADRENAL GLANDS: Within normal limits. KIDNEYS AND URETERS: Delayed nephrographic enhancement pattern of the right kidney. Moderate right hydronephrosis and hydroureter. Obstructing stone measuring 6 mm, at the right UVJ. Approximately 3 mm stone identified in the left lower kidney is unchanged. No left hydronephrosis. Normal left renal enhancement. No focal lesion evident. PELVIS: BLADDER: Bladder is low in volume. REPRODUCTIVE ORGANS: Normal size anteverted uterus and ovaries. Corpus luteal cyst noted in the left ovary. No suspicious adnexal mass. BOWEL: The stomach is unremarkable. The small bowel is normal in caliber without evidence of focal wall thickening or obstruction. There is no evidence of focal wall thickening or dilatation of the large bowel. Appendix is difficult to follow, visualized portions have normal caliber, mildly prominent enhancement, such as image 109 series 2, however no surrounding inflammatory change. No fluid in the lumen or findings to suggest acute appendicitis. VESSELS: The aorta and IVC are within normal limits. The principal vasculature of the abdomen and pelvis is patent. No aneurysm. PERITONEUM/RETROPERIT ONEUM/LYMPH NODES: Trace free fluid, likely physiologic. No generalized ascites. No abscess. No pneumoperitoneum. No adenopathy. BONES AND ABDOMINAL WALL: No evidence of acute fracture. No suspicious osseous lesions are identified. The abdominal wall soft tissues appear normal. IMPRESSION: 1. 6 mm stone in the right ureter at the UVJ, causing moderate hydronephrosis and hydroureter, with delayed nephrographic enhancement pattern in the right kidney compared to the left. Unclear if this is a different stone or the same stone previously identified in the right ureter on the remote prior study. 2. There is a nonobstructing unchanged left lower pole kidney stone seen. No left ureteral stone or hydronephrosis. 3. Mild hepatic enlargement and periportal edema noted. 4. No evidence of appendicitis or acute abnormality of the bowel. Electronically signed by: LIUDMILA BELTRÁN MD Normal [facility] CT Abdomen and Pelvis W cont rast Solange 09-14-2021 Patient Name: ADRIANE AVALOS STUDY: CT ABDOMEN AND PELVIS W IV CONTRAST; 09/14/2021 10:11 am INDICATION: stable. Right lower quadrant pain COMPARISON: 02/18/2016 ACCESSION NUMBER(S): [id number] ORDERING CLINICIAN: AHMET CARCAMO TECHNIQUE: CT of the abdomen and pelvis was performed. Standard contiguous axial images were obtained at 3 mm slice thickness through the abdomen and pelvis. Coronal and sagittal reconstructions at 3 mm slice thickness were performed. 90 milliliter OMNIPAQUE 350 contrast administered intravenously without immediate complication. FINDINGS: LOWER CHEST: Unremarkable. ABDOMEN: LIVER: There is periportal edema present. The liver density is normal. The size is mildly enlarged. Smooth surface contour. Patent hepatic vasculature. No focal lesion is evident. GALLBLADDER: Normal size gallbladder. No radiopaque gallstones. BILE DUCTS: Normal caliber. PANCREAS: The pancreas appears within normal limits, no evidence of pancreatitis or mass. SPLEEN: Normal size. Homogeneous enhancement. ADRENAL GLANDS: Within normal limits. KIDNEYS AND URETERS: Delayed nephrographic enhancement pattern of the right kidney. Moderate right hydronephrosis and hydroureter. Obstructing stone measuring 6 mm, at the right UVJ. Approximately 3 mm stone identified in the left lower kidney is unchanged. No left hydronephrosis. Normal left renal enhancement. No focal lesion evident. PELVIS: BLADDER: Bladder is low in volume. REPRODUCTIVE ORGANS: Normal size anteverted uterus and ovaries. Corpus luteal cyst noted in the left ovary. No suspicious adnexal mass. BOWEL: The stomach is unremarkable. The small bowel is normal in caliber without evidence of focal wall thickening or obstruction. There is no evidence of focal wall thickening or dilatation of the large bowel. Appendix is difficult to follow, visualized portions have normal caliber, mildly prominent enhancement, such as image 109 series 2, however no surrounding inflammatory change. No fluid in the lumen or findings to suggest acute appendicitis. VESSELS: The aorta and IVC are within normal limits. The principal vasculature of the abdomen and pelvis is patent. No aneurysm. PERITONEUM/RETROPERIT ONEUM/LYMPH NODES: Trace free fluid, likely physiologic. No generalized ascites. No abscess. No pneumoperitoneum. No adenopathy. BONES AND ABDOMINAL WALL: No evidence of acute fracture. No suspicious osseous lesions are identified. The abdominal wall soft tissues appear normal. IMPRESSION: 1. 6 mm stone in the right ureter at the UVJ, causing moderate hydronephrosis and hydroureter, with delayed nephrographic enhancement pattern in the right kidney compared to the left. Unclear if this is a different stone or the same stone previously identified in the right ureter on the remote prior study. 2. There is a nonobstructing unchanged left lower pole kidney stone seen. No left ureteral stone or hydronephrosis. 3. Mild hepatic enlargement and periportal edema noted. 4. No evidence of appendicitis or acute abnormality of the bowel. RIS LEGACY CONVERSIONS Liudmila Beltrán MD - 05/01/2022 Patient Name: ADRIANE AVALOS STUDY: CT ABDOMEN AND PELVIS W IV CONTRAST; 09/14/2021 10:11 am INDICATION: stable. Right lower quadrant pain COMPARISON: 02/18/2016 ACCESSION NUMBER(S): [id number] ORDERING CLINICIAN: AHMET CARCAMO TECHNIQUE: CT of the abdomen and pelvis was performed. Standard contiguous axial images were obtained at 3 mm slice thickness through the abdomen and pelvis. Coronal and sagittal reconstructions at 3 mm slice thickness were performed. 90 milliliter OMNIPAQUE 350 contrast administered intravenously without immediate complication. FINDINGS: LOWER CHEST: Unremarkable. ABDOMEN: LIVER: There is periportal edema present. The liver density is normal. The size is mildly enlarged. Smooth surface contour. Patent hepatic vasculature. No focal lesion is evident. GALLBLADDER: Normal size gallbladder. No radiopaque gallstones. BILE DUCTS: Normal caliber. PANCREAS: The pancreas appears within normal limits, no evidence of pancreatitis or mass. SPLEEN: Normal size. Homogeneous enhancement. ADRENAL GLANDS: Within normal limits. KIDNEYS AND URETERS: Delayed nephrographic enhancement pattern of the right kidney. Moderate right hydronephrosis and hydroureter. Obstructing stone measuring 6 mm, at the right UVJ. Approximately 3 mm stone identified in the left lower kidney is unchanged. No left hydronephrosis. Normal left renal enhancement. No focal lesion evident. PELVIS: BLADDER: Bladder is low in volume. REPRODUCTIVE ORGANS: Normal size anteverted uterus and ovaries. Corpus luteal cyst noted in the left ovary. No suspicious adnexal mass. BOWEL: The stomach is unremarkable. The small bowel is normal in caliber without evidence of focal wall thickening or obstruction. There is no evidence of focal wall thickening or dilatation of the large bowel. Appendix is difficult to follow, visualized portions have normal caliber, mildly prominent enhancement, such as image 109 series 2, however no surrounding inflammatory change. No fluid in the lumen or findings to suggest acute appendicitis. VESSELS: The aorta and IVC are within normal limits. The principal vasculature of the abdomen and pelvis is patent. No aneurysm. PERITONEUM/RETROPERIT ONEUM/LYMPH NODES: Trace free fluid, likely physiologic. No generalized ascites. No abscess. No pneumoperitoneum. No adenopathy. BONES AND ABDOMINAL WALL: No evidence of acute fracture. No suspicious osseous lesions are identified. The abdominal wall soft tissues appear normal. IMPRESSION: 1. 6 mm stone in the right ureter at the UVJ, causing moderate hydronephrosis and hydroureter, with delayed nephrographic enhancement pattern in the right kidney compared to the left. Unclear if this is a different stone or the same stone previously identified in the right ureter on the remote prior study. 2. There is a nonobstructing unchanged left lower pole kidney stone seen. No left ureteral stone or hydronephrosis. 3. Mild hepatic enlargement and periportal edema noted. 4. No evidence of appendicitis or acute abnormality of the bowel. [facility] Work Phone: Radiology Study observation (narrative) [facility] Work Phone: CT Abdomen and Pelvis W cont rast IVOrdered By: Liudmila Beltrán on 09-14-2021 [facility] Work Phone: CT Abdomen and Pelvis with I V Contraston 09-14-2021 CT Abdomen and Pelvis W contrast IV Normal YS-Mmknvhf-JjpMetrolight Work Phone: Complete Blood Count + Diffe rentialon 09-14-2021 Basophils/100 WBC (Bld) 0.9 % 0.0 - 2.0 CJ-Xihchhs-QytAppear Here Work Phone: Erythrocyte distribution width (RBC) [Ratio] 13.8 % See Below AC-Lpzchdu-XvrAppear Here Work Phone: Comment on above: Reference Range: 11. 5 - 14.5 Hematocrit (Bld) [Volume fraction] 41.0 % See Below PW-Voxxszl-Bhj land Work Phone: Comment on above: Reference Range: 36. 0 - 46.0 Hemoglobin (Bld) [Mass/Vol] 14.1 g/dL See Below UR-Wcuclms-Mnn land Work Phone: Comment on above: Reference Range: 12. 0 - 16.0 Lymphocytes/100 WBC (Bld) 39.9 % See Below JI-Zfgycxy-And land Work Phone: Comment on above: Reference Range: 13. 0 - 44.0 MCHC (RBC) [Mass/Vol] 34.3 g/dL See Below Luxim- Urology-SnapLayout Work Phone: Comment on above: Reference Range: 32. 0 - 36.0 MCV (RBC) [Entitic vol] 89 fL 80 - 100 EW-Kbdemyt-Dzt land Work Phone: Monocytes/100 WBC (Bld) 7.5 % 2.0 - 10.0 MG-Nekkvni-Ely land Work Phone: Neutrophils/100 WBC (Bld) 47.3 % See Below GA-Vbtgyap-Heh land Work Phone: Comment on above: Reference Range: 40. 0 - 80.0 Platelets (Bld) [#/Vol] 313 10*3/uL 150 - 450 SI-Abmmvxh-Oml land Work Phone: RBC (Bld) [#/Vol] 4.63 {x10E12/L} See Below metraTecyTESARO Work Phone: Comment on above: Reference Range: 4.0 0 - 5.20 WBC (Bld) [#/Vol] 7.8 10*3/uL 4.4 - 11.3 MP-Uro logy-SnapLayout Work Phone: Complete Blood Count + Differential 0.10 {x10E9/L} See Below VR-Twuwusu-Bfn land Work Phone: Comment on above: Reference Range: 0.0 0 - 0.10 Complete Blood Count + Differential 0.30 {x10E9/L} See Below CV-Lqvdajr-Tjj land Work Phone: Comment on above: Reference Range: 0.0 0 - 0.70 Complete Blood Count + Differential 0.60 {x10E9/L} See Below FW-Opwtaaq-Xli land Work Phone: Comment on above: Reference Range: 0.1 0 - 1.00 Complete Blood Count + Differential 3.10 {x10E9/L} See Below PP-Kuhjlgt-Nsn land Work Phone: Comment on above: Reference Range: 1.2 0 - 4.80 Complete Blood Count + Differential 3.70 {x10E9/L} See Below KI-Umviozz-Zcq opvizor Work Phone: Comment on above: Reference Range: 1.2 0 - 7.70 Percent differential counts (%) should be interpreted in the context of the absolute cell counts (cells/L). Complete Blood Count + Differential 4.4 % 0.0 - 6.0 DL-Fzbcnwh-OxsAppear Here Work Phone: Comprehensive metabolic 2000 panelon 09-14-2021 Albumin BCP dye [Mass/Vol] 4.2 g/dL 3.4 - 5.0 g/dL [facility] ALP [Catalytic activity/Vol] 54 U/L 33 - 110 U/L [facility] ALT With P-5'-P [Catalytic activity/Vol] 19 U/L 7 - 45 U/L [facility] Comment on above: Patients treated wit h Sulfasalazine may generate falsely decreased results for ALT. Anion gap [Moles/Vol] 10 mmol/L 10 - 20 mmol/L [facility] AST With P-5'-P [Catalytic activity/Vol] 16 U/L 9 - 39 U/L [facility] Bilirubin [Mass/Vol] 0.5 mg/dL 0.0 - 1 .2 mg/dL [facility] Calcium [Mass/Vol] 8.5 mg/dL Low 8.6 - 10. 3 mg/dL [facility] Chloride [Moles/Vol] 106 mmol/L 98 - 10 7 mmol/L [facility] CO2 [Moles/Vol] 27 mmol/L 21 - 32 mmol/L [facility] Creatinine [Mass/Vol] 0.92 mg/dL 0.50 - 1.05 mg/dL [facility] GFR Female 83 - PINF [facility] Comment on above: CALCULATIONS OF THEE MATED GFR ARE PERFORMED USING THE 2020 CKD-EPI STUDY REFIT EQUATION WITHOUT THE RACE VARIABLE FOR THE IDMS-TRACEABLE CREATININE METHODS. https://jasn.asnjournals.org/content//ASN.574708 0400 Glucose [Mass/Vol] 100 mg/dL High 74 - 99 mg/dL [facility] Interpretation and review of laboratory results Abnormal [facility] Potassium [Moles/Vol] 4.1 mmol/L 3.5 - 5.3 mmol/L [facility] Protein [Mass/Vol] 6.7 g/dL 6.4 - 8.2 g/dL [facility] Sodium [Moles/Vol] 139 mmol/L 136 - 145 mmol/L [facility] Urea nitrogen [Mass/Vol] 16 mg/dL 6 - 23 mg/dL [facility] Coronavirus 2019 RNA by PCR, Symptomaticon 09-14-2021 Coronavirus 2019 RNA by PCR, Symptomatic Not detected Normal See Below HL-Yyltoob-C OpVista Work Phone: Comment on above: SOURCE: Nasal, Nasop haryngealReference Range: Not Detected.This test has received FDA Emergency Use Authorization (EUA) and has been verified by [facility]. This test is only authorized for the duration of time that circumstances exist to justify the authorization of the emergency use of in vitro diagnostic tests for the detection of SARS-CoV-2 virus and/or diagnosis of COVID-19 infection under section 564(b)(1) of the Act, 21 U.S.C. 360bbb-3(b)(1), unless the authorization is terminated or revoked sooner. [facility] is certified under CLIA-88 as qualified to perform high complexity testing. Testing is performed in the [facility] laboratory located at [address] [place] [address].SARS-CoV-2/Flu/RSV Multiplex Test: Fact sheet for providers: https://www.fda.gov/media/108177/downloadFact sheet for patients: https://www.fda.gov/media/202234/download Covid 19 Resultson 2 SARS-CoV-2 (COVID-19) RNA YAS+probe Ql (Unsp spec) NEGATIVE COVID-19 Test Coronaviruses are common world-wide and are the cause of many common colds. SARS-COV2 is a new coronavirus that began circulating worldwide in 2019 so we are calling it COVID-19. It has been estimated that four out of five patients with COVID-19 will recover at home without the need for medical attention. Symptoms of COVID-19 may include cough, fever, shortness of breath, loss of taste or smell and other flu-like symptoms including chills, sore muscles, sore throat, and headache. Severe illness is more common in older people and people with other health problems such as high blood pressure, obesity, and immune system problems. If the test is positive, you have COVID-19. You will be contacted by the ordering physicians office and instructed to remain on home isolation, in accordance with CDC guidelines. You may also be contacted by the [facility] to see if any of your close contacts may have been exposed to the virus and need to quarantine. If the test is negative, you likely do not have COVID-19 at this time, but you still may have a different illness that can spread to other people (like Influenza, or the Flu) and could still be at risk for getting COVID-19. We recommend that you stay away from other people to limit the spread of illness until your symptoms are improving and you are fever-free for 24 hours without the use of fever lowering medications such as acetaminophen or ibuprofen. No test is 100% accurate so if you are still concerned you may have COVID-19, talk to your doctor about the need to continue to stay away from others. Medicines Unless your provider told you not to use the following: Acetaminophen (Tylenol and others) is generally safe. Anti-inflammatory medications, such as Ibuprofen (Advil or Motrin) or Naproxen (Aleve) can also be used. Lhto-rgu-zswmzgv cough and cold medicines can be used according to the instructions on the package. Some eupy-ixx-xtckqrr medicines also contain acetaminophen. Make sure you are not taking more than your recommended dose. For those not hospitalized, there is no specific treatment available for this illness. Antibiotics do not treat Coronaviruses. Follow-Up Follow up with your doctor by scheduling a virtual visit or consider follow-up at one of our urgent care fever clinics. If you are having difficulty breathing, or are very weak and having difficulty standing, this is a medical emergency. Call 911 or have someone take you to the nearest emergency room immediately. If possible, wear a facemask. Additional guidance from the CDC for patients who tested POSITIVE for COVID-19 How to isolate: Isolate yourself in a specific room at home and limit your contact with others. Use a separate bathroom from other members of the household, when possible. Leave home only to get essential medical care. Do not go to work, school or public areas. Avoid using public transportation, ride-sharing, or taxis. Restrict contact with pets and other animals. If you must care for your pet or be around animals while you are sick, wash your hands before and after your interaction and wear a facemask. Make sure that shared spaces in the home have good airflow, such as by an air conditioner or an opened window, weather permitting. Personal Hygiene Procedures: Wear a face mask when in the same room as other people or pets. If a face mask interferes with your breathing, others should wear a mask when sharing space with you. Frequent hand-washing: wash your hands with soap and water for at least 20 seconds. If soap and water are not available, use alcohol-based hand reclamation kettle tender. Avoid touching your eyes, nose, and mouth with unwashed hands. Household Hygiene Procedures: Avoid sharing personal household items such as dishes, glassware, cups, eating utensils, towels or bedding with other people or pets in your home. After use, these items should be washed with soap and hot water. Disinfect all high-touch surfaces every day with antibacterial cleaning solutions such as Lysol wipes, bleach, cleansers, etc. High-touch surfaces include tabletops, doorknobs, bathroom fixtures, toilets, phones, keyboards, tablets and bedside tables. Immediately clean any surfaces that may have blood, poop or body fluids on them, using antibacterial cleaning solutions such as Lysol wipes, bleach, cleansers, etc. If clothing or bedding come into contact with blood, poop or body fluids, they should be washed immediately. Follow the directions on the laundry detergent and clothing labels but hot water is recommended when possible. Stopping home isolation precautions: If possible, consult your doctor before stopping home isolation precautions. According to the CDC, you can discontinue home isolation precautions when you have met both of these criteria: Your fever and respiratory symptoms have been gone for 24 nela (more content not included)... Normal [facility] Cult, Urineon 09-14-2021 Bacteria identified Cx Nom (U) FR-Nkusdst-RmyAppear Here Work Phone: HCG ( test) IA.rapi d Ql (U)on 09-14-2021 HCG ( test) Ql (U) Negative Negative [facility] HCG,URINEon 09-14-2021 Beta HCG ( test) Ql (U) Negative Normal Negative [facility] Comment on above: Performed By: #### U A #### [facility] [address] [place] [address] LACTATEon 09-14-2021 Lactate [Moles/Vol] 0.6 mmol/L Normal 0.4 - 2.0 [facility] Comment on above: Result Comment: Millicent puncture immediately after or during the administration of Metamizole may lead to falsely low results. Testing should be performed immediately prior to Metamizole dosing. Performed By: #### O VPG3 #### [facility] [address] [place] [address] Laboratory - Chemistry and C hemistry - challengeon 09-14-2021 Albumin BCP dye [Mass/Vol] 4.2 g/dL 3.4 - 5.0 NH-Ehthagr-CpvAppear Here Work Phone: ALP [Catalytic activity/Vol] 54 U/L 33 - 110 WQ-Eepmbnu-YqdAppear Here Work Phone: ALT With P-5'-P [Catalytic activity/Vol] 19 U/L 7 - 45 CM-Qykgotc-MxuMetrolight Work Phone: Comment on above: Patients treated wit h Sulfasalazine may generate falsely decreased results for ALT. Anion gap [Moles/Vol] 10 mmol/L 10 - 20 [facility] Work Phone: AST With P-5'-P [Catalytic activity/Vol] 16 U/L 9 - 39 PW-Xyvllez-Yob land Work Phone: Bilirubin [Mass/Vol] 0.5 mg/dL 0.0 - 1.2 MP-U rology-Doc land Work Phone: Calcium [Mass/Vol] 8.5 mg/dL below low threshold 8.6 - 10.3 OL-Sjeqyls-Jqq land Work Phone: Chloride [Moles/Vol] 106 mmol/L 98 - 107 MP-U rology-Doc land Work Phone: CO2 [Moles/Vol] 27 mmol/L 21 - 32 MP-Urolog y-Doc land Work Phone: Creatinine [Mass/Vol] 0.92 mg/dL See Below MP- Urology-Doc land Work Phone: Comment on above: Reference Range: 0.5 0 - 1.05 Glucose [Mass/Vol] 100 mg/dL above high threshold 74 - 99 HQ-Jmldjps-Onq land Work Phone: Potassium [Moles/Vol] 4.1 mmol/L 3.5 - 5.3 MP- Urology-Dco land Work Phone: Protein [Mass/Vol] 6.7 g/dL 6.4 - 8.2 MP-Uro logy-Doc land Work Phone: Sodium [Moles/Vol] 139 mmol/L 136 - 145 MP-Uro logy-Doc land Work Phone: Urea nitrogen [Mass/Vol] 16 mg/dL 6 - 23 MU-Gntvfqj-Fdt land Work Phone: Lactateon 09-14-2021 Lactate [Moles/Vol] 0.6 mmol/L 0.4 - 2. 0 mmol/L [facility] Comment on above: Venipuncture immedia tely after or during the administration of Metamizole may lead to falsely low results. Testing should be performed immediately prior to Metamizole dosing. Lactate [Moles/Vol]on 2021 [facility] Lactate, Levelon 09-14-2021 Lactate [Moles/Vol] 0.6 mmol/L 0.4 - 2.0 MP-Ur ology-SnapLayout Work Phone: Comment on above: Venipuncture immedia tely after or during the administration of Metamizole may lead to falsely low results. Testing should be performed immediately prior to Metamizole dosing. No Panel Informationon 09-14 Please click on the link to view the study images Normal UO-Dmplbpj-Rtk land Work Phone: [facility] 83 {mL/min/1.73m2} >90 MP-Uro logy-SnapLayout Work Phone: Comment on above: CALCULATIONS OF THEE MATED GFR ARE PERFORMED USING THE 2020 CKD-EPI STUDY REFIT EQUATION WITHOUT THE RACE VARIABLE FOR THE IDMS-TRACEABLE CREATININE METHODS.https://jasn.asnjournals.org/content/early/ N.0723537422 Order Reconciliationon 09-14 Order Reconciliation Page 1 Discharge Reconciliation Document Reconciliation Type: Discharge requested on behalf of Azael Hinds (Physician) done by Azael Hinds) Discharge - Reconciliation: 14-Sep-2021 12:31 by: Azael Hinds) Current OrdersDateHOME MEDICATIONS AT DISCHARGE DateReconciliation Comment/ Additional Information Sodium Chloride 0.9% Infusion IV Bag Volume = 1,000 mL Run at: 125 mL/hr IntraVenous 14-Sep-2021 09:38 Sodium Chloride 0.9% Infusion is not required Home Medications Added During Discharge Reconciliation Call Physician For: inability to urinate every 8-12 hours and your bladder becomes too full or painful. Call Physician For: signs and sypmtoms of infection Increased redness or swelling at incision site, increased pain/tenderness at surgical site, increased temperature greater than 100 degress, increasing and/or progressive drainage from surgical site, and/or unusual odor from surgical site. Cipro 250 mg oral tablet 1 tab(s) orally 2 times a day Diet Regular Discharge Discharge Diagnosis< N13.30 Hydronephrosis, acquired Discharge Provider, Azael Hinds Discharge Disposition : .Home Condition at Discharge: Satisfactory Discharge Communication Instructions for Nursing Only: Remove IV prior to discharge from hospital. Do not remove any midline, if present, without an order from the provider. Discharge Instructions - PHR After your discharge from the hospital, two Summary of Care Documents will be available online in your Personal Health Record (PHR). 1.[facility] Document Architecture (C-CDA) Patient Discharge Summary This document is a summary of your hospital stay to be kept for your reference.2.C-CDA Visit Summary This document is a summary of your hospital stay to be shared with your follow-up providers (doctor, scooping machine tender, physical therapist, etc.). Follow Up with Dr Hinds in 1-2 Weeks hydrocodone-acetamino phen 5 mg-325 mg oral tablet 1 tab(s) orally every 8 hours Post Procedure Discharge Criteria Criteria: Easily arousable / responding appropriately; Significant complications are absent; SpO2 = or > 92%, or if SpO2 < 92%, maintains within 2% of baseline; Vital signs +/- 20% of preprocedure status; Ambulates without dizziness / age appropriate activity and ambulatory status returns to pre-procedure baseline. Pyridium 200 mg oral tablet 1 tab(s) orally every 8 hours, As Needed All Active Home Medications at time of Discharge Reconciliation: 14-Sep-2021 12:31 Call Physician For: inability to urinate every 8-12 hours and your bladder becomes too full or painful. Call Physician For: signs and sypmtoms of infection Increased redness or swelling at incision site, increased pain/tenderness at surgical site, increased temperature greater than 100 degress, increasing and/or progressive drainage from surgical site, and/or unusual odor from surgical site. Cipro 250 mg oral tablet 1 tab(s) orally 2 times a day Diet Regular Discharge Discharge Diagnosis< N13.30 Hydronephrosis, acquired Discharge Provider, Azael Hinds Discharge Disposition : .Home Condition at Discharge: Satisfactory Discharge Communication Instructions for Nursing Only: Remove IV prior to discharge from hospital. Do not remove any midline, if present, without an order from the provider. Discharge Instructions - PHR After your discharge from the hospital, two Summary of Care Documents will be available online in your Personal Health Record (PHR). 1.[facility] Document Architecture (C-CDA) Patient Discharge Summary This document is a summary of your hospital stay to be kept for your reference.2.C-CDA Visit Summary This document is a summary of your hospital stay to be shared with your follow-up providers (doctor, scooping machine tender, physical therapist, etc.). Follow Up with Dr Hinds in 1-2 Weeks hydrocodone-acetamino phen 5 mg-325 mg oral tablet 1 tab(s) orally every 8 hours Post Procedure Discharge Criteria Criteria: Easily arousable / responding appropriately; Significant complications are absent; SpO2 = or > 92%, or if SpO2 < 92%, maintains within 2% of baseline; Vital signs +/- 20% of preprocedure status; Ambulates without dizziness / age appropriate activity and ambulatory status returns to pre-procedure baseline. Pyridium 200 mg oral tablet 1 tab(s) orally every 8 hours, As Needed Normal [facility] Preop Checkliston 09-14-2021 Preop Checklist Preop Checklist: Preop Checklist: Arrival [id number] Arrival Time13:00 Procedure Typeright cystoscopy, stent placement Temperature C36.7 degrees C Temperature F98.1 degrees F Heart Rate50 beats per minute Respiratory Rate16 breath per minute Blood Pressure Usayvukp732 mm/Hg Blood Pressure Hdunqvqgo32 mm/Hg COVID 19 Results in Last 7 daysnegative NPOyes Last Food [id number] 18:00 Last Clear Fluid [id number] 18:00 NPO Commentyes ID Band On Patientpatient ID (name) Consent Signedyes H&P Completeyes EKG Performednot ordered Chest X-Ray Performednot ordered Preop Antibioticsnot ordered Type and Screen Resultedn/a HCG Urine TestN/A blood work was negative SCD's Appliednot applicable Denturesnot applicable Prostheticsnot applicable Hearing Aidsnot applicable Valuables Securednot applicable Glasses / Contactsnot applicable Cardiovascular Assessment: Apicalregular Respiratory Assessment: Respirationsunlabored regular Air Exchangegood Breath Soundsclear Neurological Assessment: Level of Consciousnessalert, oriented Mobilitymoves all extremities Able to Express Selfyes Age Appropriateyes Emotional Statuscalm Skin Assessment: Skin Site(s) with Current Compromisenone Preop Education: Surgical Site Infection Preventionyes Pain Scales and Managementyes Language / Communication: Language / CommunicationEnglish Electronic Signatures: Mayra Olguin) (Signed 14-Sep-2021 13:23) Authored: Preop Checklist Last Updated: 14-Sep-2021 13:23 by Mayra Olguin (RN) [facility] Provider Note - ED v3on 07- Provider Note - ED v3 Provider Note: Chart Review: ED NOTES ED NOTES: 36-year-old female presents with chief complaint of right lower quadrant pain. Patient states symptoms abruptly started approximately 3 hours ago. Patient is complaining of moderate amount of pain in the right inguinal area with radiation into the flank. Patient does have history of both ovarian cyst and urolithiasis. Patient is complaining of associated nausea. Patient denies any possibility of . Patient denies any diarrhea. Patient denies any trauma to the affected area. Patient will have an IV established and be given Toradol 15 mg IV and Zofran 4 mg IV. The patient states that she is still having severe pain after Toradol was given. Patient did receive 2 mg of IV morphine which she told the nurse usually does not work. Patient is still complaining of pain will be given 50 micrograms of fentanyl. I did speak to Dr. Hinds and patient will have retrieval of the stone this afternoon at 130. I have let the patient know this. Patient will be discharged to same-day surgery with discharge instructions per Dr. Hinds. HISTORY OF PRESENTING ILLNESS ADRIANE is a 36 year old Female and was seen by me at 14-Sep-2021 08:51 for a chief complaint of abdominal pain (c/o right lower abd pain x 2 hrs, states it woke her this morning. c/o nausea, denies v/d. denies any urinary symptoms)(1). The historian is the patient. Triage Information: Most recent Vital Sign Value Date Temp (F): 99.5 09-14-2021 08:51 Temp (C): 37.5 09-14-2021 08:51 Heart Rate (beats/min): 64 09-14-2021 08:51 Respirations (breaths/min): 20 09-14-2021 08:51 SpO2 (%): 100 09-14-2021 08:51 BP Systolic (mm Hg): 146 09-14-2021 08:51 BP Diastolic (mm Hg): 104 09-14-2021 08:51 PAST MEDICAL HISTORY ALLERGIES/INTOLERANCE S: No Known Allergies HEALTH HISTORY: No documented data. OUTPATIENT MEDICATIONS: Home Medications Review Status for Reconciliation: N/A Med Status: Patient Currently Takes Medications Drug Name: predniSONE 20 mg oral tablet Instructions: 2 tab(s) orally once a day SIGNIFICANT EVENTS: No documented data. REVIEW OF SYSTEMS GASTROINTESTINAL: POSITIVE for: abdominal pain, nausea and vomiting; All other systems reviewed and are negative PHYSICAL EXAM CONSTITUTIONAL: Well appearing, well nourished, awake, alert, oriented to person, place, time/situation and in no apparent distress. HENMT: Airway patent, ears with clear tympanic membranes bilaterally. Nasal mucosa clear. Mouth with normal mucosa. Throat has no vesicles, no oropharyngeal exudates and uvula is midline. Face with no lymph node enlargement. EYES: Clear bilaterally, pupils equal, round and reactive to light. CARDIOVASCULAR: Normal rate, regular rhythm. Heart sounds S1, S2. No murmurs, rubs or gallops. PMI non-displaced. RESPIRATORY: Breath sounds clear and equal bilaterally. GASTROINTESTINAL: Abdomen soft, non-distended, no rebound, no guarding. Bowel sounds normal in all 4 quadrants. Moderate right inguinal pain with some pain over the right ovary. GENITOURINARY: No discharge, no lesions. MUSCULOSKELETAL: Spine appears normal, range of motion is not limited, no muscle or joint tenderness. NEUROLOGICAL: Alert and oriented, no focal deficits, no motor or sensory deficits. SKIN: Skin normal color for race, warm, dry and intact. No evidence of trauma. PSYCHIATRIC: Alert and oriented to person, place, time/situation. normal mood and affect. No apparent risk to self or others. HEME/LYMPH: No adenopathy or splenomegaly. No cervical, supraclavicular or inguinal lymphadenopathy. CRITICAL CARE RESULTS: Recent Lab Results: I have reviewed these laboratory results: Urine Test 14-Sep-2021 09:24:00 ResultValue HCG, Urine NEGATIVE Urinalysis with Culture if Indicated 14-Sep-2021 09:24:00 ResultValue Color, Urine Yellow Reference Range: STRAW,YELLOW Appearance, Urine HAZY Specific [place], Urine 1.021 pH, Urine 5.0 Protein, Urine NEGATIVE Glucose, Urine NEGATIVE Blood, Urine SMALL(1+) A Ketones, Urine NEGATIVE Bilirubin, Urine NEGATIVE Urobilinogen, Urine <2.0 Nitrite, Urine Negative Leukocyte Esterase, Urine TRACE A Urinalysis, Microscopic 14-Sep-2021 09:24:00 ResultValue White Cells 12 A Red Blood Cells 8 A Epithelial Cells, Squamous 12 Bacteria, Urine 1+ A Mucous 2+ Complete Blood Count + Differential 14-Sep-2021 08:54:00 ResultValue White Blood Cell Count 7.8 Red Blood Cell Count 4.63 HGB 14.1 HCT 41.0 MCV 89 MCHC 34.3 PLT 313 RDW-CV 13.8 Neutrophil % 47.3 Lymphocyte % 39.9 Monocyte % 7.5 Eosinophil % 4.4 Basophil % 0.9 Neutrophil Count 3.70 Lymphocyte Count 3.10 Monocyte Count 0.60 Eosinophil Count 0.30 Basophil Count 0.10 Comprehensive Metabolic Panel 14-Sep-2021 08:54:00 ResultValue Glucose, Serum 100 H NA 139 K 4.1 CL 106 Bicarbonate, Serum 27 Anion G (more content not included)... Normal [facility] RF Kidney and Ureter and Uri nary bladder Views W contrast retrogradeon 09-14-2021 [email or web address] LEGACY CONVERSIONS Conversion, Ge Radiology - 04/20/2022 [facility] Work Phone: Radiology Study observation (narrative) [facility] Work Phone: RF Kidney and Ureter and Uri nary bladder Views W contrast retrogradeOrdered By: Ge Conversion on 09-14-2021 [facility] Risk Screen - Adult Emergenc yon 09-14-2021 Risk Screen - Adult Emergency Preferred Language: Preferred Language: Preferred Language for Discussing Health Care (patient/designee)Yin gu Advanced Directives: Advance Directive/DNRno Family Violence Adult: Abuse Screen: Are you or have you been threatened or abused physically, emotionally, or sexually by anyoneno Learning Assessment (Patient): Learning Assessment (Patient): Patient is Able to be Assessed for Learningyes Factors Influencing Readiness to Learnn/a Factors that Impact Ability to Learnnone Devices/Methods Used to Communicatenone Learning Preferencesverbal instruction; written material Cultural Considerationsnone Developmental Considerationsnone Taoism Considerationsnone Learning Assessment (Other Learner): Learning Assessment (Other Learner): Other learner availableno Pressure Injury/TB/Substance: Pressure Injury: Do you have a coughno Smoking Statusmoderate user (uses 11-30 cig/day, OR 0.5-1.5 ppd, OR 2-3 cans/pouches loose leaf tobacco per week, OR 0.5-1.5 vape pods per day) Tobacco Cessation Education (provide if tobacco use within the last 12 mos) patient declined Alcohol Useoccasionally Drug Usedenies Admission Risk Screen: Significant IndicatorsComplete CAGE: CAGE: Is this an injured patient at a Trauma Center ([facility]/Sis [place]): no Electronic Signatures: Rita Stevenson (RN) (Signed 14-Sep-2021 08:57) Authored: Preferred Language, Advanced Directives, Family Violence Adult, Learning Assessment (Patient), Learning Assessment (Other Learner), Pressure Injury/TB/Substance, Pressure Injury, CAGE Last Updated: 14-Sep-2021 08:57 by Rita Stevenson (RN) [facility] SARS-CoV-2 (COVID-19) RNA NA A+probe Ql (Resp)on 09-14-2021 SARS-related CoV RNA YAS+probe Ql (Resp) Not detected Not Detected [facility] Comment on above: . This test has received [facility] Emergency Use Authorization (EUA) and has been verified by [facility]. This test is only authorized for the duration of time that circumstances exist to justify the authorization of the emergency use of in vitro diagnostic tests for the detection of SARS-CoV-2 virus and/or diagnosis of COVID-19 infection under section 564(b)(1) of the Act, 21 U.S.C. 360bbb-3(b)(1), unless the authorization is terminated or revoked sooner. [facility] is certified under CLIA-88 as qualified to perform high complexity testing. Testing is performed in the [facility] laboratory located at [address] [place] [address]. SARS-CoV-2/Flu/RSV Multiplex Test: Fact sheet for providers: https://www.fda.gov/media/169336/download Fact sheet for patients: https://www.fda.gov/media/445295/download [facility] Triage - EDon 09-14-2021 Triage - ED Quick Triage: Are You no Have You Given In The Last 6 Weeksno Are You Currently Breastfeedingno Chart Review: PRIMARY ASSESSMENT ABCD Normal Findings: airway open and patent, circulation normal and alert and oriented ARRIVAL INFORMATION Means of Arrival: Ambulatory Mode of Arrival: private vehicle Arrival From: home Accompanied By: immediate family member Language: Spoken Language Preferred: Dominican Reading Language Preferred: Dominican Present on Arrival: Device Present on Arrival to ED: no CHIEF COMPLAINT ADRIANE AVALOS is a Female patient with a chief complaint of abdominal pain (c/o right lower abd pain x 2 hrs, states it woke her this morning. c/o nausea, denies v/d. denies any urinary symptoms). Triage Date/Time: 14-Sep-2021 08:45 KAT: 3 Pain Rating (0-10): 8 = Severe Pain location: abd Vital Signs: Temperature: 99.5F ( 37.5C) taken temporal Blood Pressure: 146/104 Mean: Heart Rate: 64 Respiratory Rate: 20 Pulse Oximetry: 100% on room air, no respiratory support. Height: 5 feet 6.00 inches. 167.6 CM Weight: 145.5 pounds. Calculated 66.0 kg. (stated) Calculated BMI (kg/m2): 23.496 Calculated BSA (m2) 1.75 [place] Coma Scale: Best Eye Response: (E4) spontaneous Best Motor Response: (M6) obeys commands Best Verbal Response: (V5) oriented Darron Score: 15 Allergies: no Patient has homicidal thoughts: no Symptoms Are POSITIVE For: nausea. Symptoms Are Negative For: diarrhea, fever and vomiting. Risk Screens Suicide Risk Screen In the Past Month: Have you wished you were or wished you could go to sleep and not wake up no In the Past Month: Have you had any actual thoughts of killing yourself no In Your Lifetime: Have you ever done anything, started to do anything, or prepared to do anything to end your life no Goodson Fall Scale Screening Has the patient fallen before (or is the patient in the ED as a result of a fall) has not had a fall Does the patient have an impaired gait does not have impaired gait Is the patient cognitively impaired not cognitively impaired Interventions: Goodson Fall Interventions: LOW INTERVENTIONS: *patient oriented to surroundings and call system, * patient/family falls education completed and documented, *patients fall status communicated during bedside handoff, *whiteboard updated, *mode of toileting discussed with patient, *bed in low position with brakes locked, *call light in reach, * non-skid footwear TRAVEL HISTORY Travel History Coronavirus Screening: no exposure or symptoms Travel Exposure History: NO travel to International locations in the past 30 days PAIN Pain Scale Used: LAYA Pain Rating (0-10): 8 = Severe Past Medical History: Past Medical History Reviewedyes Electronic Signatures: Rita Stevenson (RN) (Signed 14-Sep-2021 08:56) Entered: Risk Screens, Pain, Arrival, ABCD, Travel History, Chart Review, Scores, Past Medical History Authored: Quick Triage, Risk Screens, Pain, Arrival, ABCD, Travel History, Chart Review, Scores, Past Medical History Last Updated: 14-Sep-2021 08:56 by Rita Stevenson (MARYAN) Normal [facility] UA MICROSCOPICon 09-14-2021 BACTERIA 1+ /HPF Abnormal [facility] Comment on above: Performed By: #### U [place] #### [place] [id number] Mucus Ql (Urine sed) 2+ /LPF Normal [facility] Comment on above: Performed By: #### U AMIC #### [place] [id number] RBC 8 /HPF Abnormal 0-5 [facility] Comment on above: Performed By: #### U AMIC #### [place] [id number] SQUAMOUS EPITH. CELLS 12 /HPF Normal [facility] Comment on above: Performed By: #### U AMIC #### [place] [id number] WBC 12 /HPF Abnormal 0-5 [facility] Comment on above: Performed By: #### U AMIC #### [address] Surgical Pathology Depar tmenton 09-14-2021 [facility] Surgical Pathology Department Name ADRIANE AVALOS Pathologist: PETE JEFFERSON Date of Procedure: 09/14/2021 Date Received: 09/15/2021 Date Reported 09/25/2021 Submitting Physician: AZAEL HINDS II, MD Location: [facility] Other External # FINAL DIAGNOSIS A. STONE CALCULI: --GROSS DIAGNOSIS ONLY: CALCULUS MATERIAL, SENT FOR STONE ANALYSIS. Electronically Signed Out By PETE JEFFERSON/IDALMIS By the signature on this report, the individual or group listed as making the Final Interpretation/Diagno sis certifies that they have reviewed this case. Diagnostic interpretation performed at [address] [place] [address] Clinical History: Clinical Diagnosis History UETER CALCULI Specimens Submitted As: A: STONE CALCULI Gross Description: Received fresh, labeled with the patient's name and hospital number and stone calculus, are two calculi aggregating to 0.4 x 0.3 x 0.2 cm. Tissue is not received with the specimen. A photograph has been taken. The stones are sent for stone analysis. The specimen is for gross examination only. [facility] 09/16/2021 [facility] Department of Pathology [address] [place] [address] Normal [facility] Comment on above: Performed By: #### U HCS #### [facility] Surgical Pathology Department [address] [place] [address] URINALYSIS WITH CULTURE IF I NDICATEDon 09-14-2021 Appearance (U) HAZY Normal CLEAR [facility] Comment on above: Performed By: #### U A #### [address] [address] Bilirubin Ql (U) Negative Normal NEGATIVE [facility] Comment on above: Performed By: #### U A #### [address] [address] Color (U) Yellow Normal STRAW,YELLOW [facility] Comment on above: Performed By: #### U A #### [address] [address] Glucose Ql (U) Negative Normal NEGATIVE [facility] Comment on above: Performed By: #### U A #### [address] [address] Hemoglobin Ql (U) SMALL(1+) Abnormal NEGATIVE [facility] Comment on above: Performed By: #### U A #### [address] [address] Ketones Ql (U) Negative Normal NEGATIVE [facility] Comment on above: Performed By: #### U A #### [address] [address] Leukocyte esterase Test strip Ql (U) TRACE Abnormal NEGATIVE [facility] Comment on above: Performed By: #### U A #### [address] [address] Nitrite Ql (U) Negative Normal NEGATIVE [facility] Comment on above: Performed By: #### U A #### [address] [address] pH (U) 5.0 [pH] Normal 5.0 - 8.0 [facility] Comment on above: Performed By: #### U A #### [address] [address] Protein Ql (U) Negative Normal NEGATIVE [facility] Comment on above: Performed By: #### U A #### [address] [address] Specific gravity (U) [Rel density] 1.021 Normal 1.005 - 1.035 [facility] Comment on above: Performed By: #### U A #### [address] [address] Urobilinogen (U) [Mass/Vol] mg/dL Normal 0.0 - 1.9 [facility] Comment on above: Performed By: #### U A #### [address] [address] Color (U) Yellow See Below [facility] Work Phone: Comment on above: Reference Range: STR AW,YELLOW Glucose Ql (U) Negative NEGATIVE -Urology -[employer] Work Phone: Ketones Ql (U) Negative NEGATIVE -Urolog [facility] Work Phone: Leukocyte esterase Test strip Ql (U) TRACE Abnormal NEGATIVE KS[facility] Work Phone: pH (U) 5.0 [pH] 5.0 - 8.0 ZP[facility]Ssanfjf[facility] Work Phone: Protein (U) [Mass/Vol] Negative NEGATIVE EX[facility]Ddbmjii[facility]Njf [facility] Work Phone: RBC (U) [#/Vol] SMALL(1+) Abnormal NEGATIVE [employer] yTESARO Work Phone: Specific gravity (U) [Rel density] 1.021 1 See Below SF[facility]kz[facility]ac[facility] Work Phone: Comment on above: Reference Range: 1.0 05 - 1.035 URINALYSIS WITH CULTURE IF INDICATED Negative NEGATIVE [employer] Work Phone: URINALYSIS WITH CULTURE IF INDICATED <2.0 0.0 - 1.9 [employer] Work Phone: URINALYSIS WITH CULTURE IF INDICATED HAZY CLEAR [employer] Work Phone: URINE CULTURE,BACTERIALon URINE CULTURE,BACTERIAL PATIENT: ADRIANE AVALOS LOCATION: [facility]#: [id number] : 87 AGE: SEX: F ORDERED BY: AHMET CARCAMO SOURCE: URINE COLLECTED: 09/14/21 09:24 ANTIBIOTICS AT ILDA.: RECEIVED : 09/14/21 17:25 SITE: R E S U L T S URINE CULTURE,BACTERIAL FINAL 09/15/21 11:04 NO SIGNIFICANT GROWTH. [facility] Comment on above: Performed By: #### U [facility] [address] #### [facility] [address] [address] [facility] [place] [address] Urinalysis complete W Reflex Culture panel (U)on 09-14-2021 Appearance (U) HAZY CLEAR [facility] Bilirubin (U) [Mass/Vol] Negative NEGATIVE [facility] Color (U) Yellow STRAW,YELLOW [facility] Glucose Auto test strip (U) [Mass/Vol] Negative NEGATIVE mg/dL [facility] Interpretation and review of laboratory results Abnormal [facility] Ketones (U) [Mass/Vol] Negative NEGATIVE mg/dL [facility] Leukocyte esterase Auto test strip Ql (U) TRACE Abnormal NEGATIVE [facility] Nitrite Auto test strip Ql (U) Negative NEGATIVE [facility] pH (U) 5.0 [pH] 5.0 - 8.0 [facility] Protein (U) [Mass/Vol] Negative NEGATIVE mg/dL [facility] RBC (U) [#/Vol] SMALL(1+) Abnormal NEGATIVE [facility] Specific gravity (U) [Rel density] 1.021 1.005 - 1.035 [facility] Urobilinogen (U) [Mass/Vol] mg/dL 0.0 - 1.9 mg/dL [facility] Urinalysis microscopic panel Auto Ql (U)on 09-14-2021 Bacteria Auto (Urine sed) [#/Area] 1+ Abnormal /HPF [facility] Epithelial cells.squamous Auto (Urine sed) [#/Area] 12 /HPF [facility] Interpretation and review of laboratory results Abnormal [facility] Mucus Auto (Urine sed) [#/Area] 2+ /LPF [facility] RBC Auto (Urine sed) [#/Area] 8 Abnormal [facility] WBC Auto (Urine sed) [#/Area] 12 Abnormal [facility] Urinalysis, Microscopicon Urinalysis, Microscopic 2+ [facility] Work Phone: Urinalysis, Microscopic 1+ Abnormal VQ[facility]Flcbysa[facility] Work Phone: Urinalysis, Microscopic 12 {/HPF} Abnormal 0-5 CC[facility]rap[facility]Wul [facility] Work Phone: Urinalysis, Microscopic 8 {/HPF} Abnormal 0-5 JP[facility]Xcpfeww[facility]tv [facility] Work Phone: Urine Teston 09-14 HCG ( test) Ql (U) Negative Negative TM[facility] Work Phone: OVA/PARA + GIARDIA/CRYPTOSPO RIDIUM ANTIGENon 05-12-2021 OVA + PARASITE EXAM Negative Normal Negative [facility] Comment on above: Order Comment: TAKEN FROM [facility], WENT TO [place] Result Comment: INTE RPRETIVE INFORMATION: Ova and Parasite, Fecal Method for identification of Ova and Parasites includes wet mount and trichrome stains. Due to the various shedding cycles of many parasites, three separate stool specimens collected over a 5-7-day period are recommended for ova and parasite examination. A single negative result does not rule out the possibility of a parasitic infection. The ova and parasite exam does not specifically detect Cryptosporidium, Cyclospora, Cystoisospora, and Microsporidia. For additional test information refer to [employer] consult, https://Care-n-Share.Cazoomi/content/diarrhea Performed By: [email or web address] [address] [place] [address] Department: Cinda Mcghee MD Performed By: #### O VPG3 #### [place] [address] OVA/PARA + GIARDIA/CRYPTOSPO RIDIUM ANTIGENon 05-10-2021 GIARDIA ANTIGEN Negative Normal Negative [facility] Comment on above: Order Comment: TAKEN FROM [facility], WENT TO [place] Result Comment: Perf ormed By: WARUPINDER [employer] [address] [place] [address] Department: Cinda Mcghee MD Performed By: #### O VPG3 #### [place] [address] CRYPTOSPORIDIUM ANTIGEN Negative Normal Negative [facility] Comment on above: Order Comment: TAKEN FROM [facility], WENT TO [place] Result Comment: Perf ormed By: [facility] [employer] [address] [place] [address] Department: Cinda Mcghee MD Performed By: #### O VPG3 #### [place] [address] No Panel Informationon 05-06 Negative Negative [facility] Work Phone: Comment on above: Performed By: [email or web address], [place] [address]Laboratory Director: Cinda Mcghee MD SOURCE: INTERPRETIVE INFORMATION: Ova and Parasite, FecalMethod for identification of Ova and Parasites includes wet mount and trichrome stains.Due to the various shedding cycles of many parasites, three separate stool specimens collected over a 5-7-day period are recommended for ova and parasite examination. A single negative result does not rule out the possibility of a parasitic infection. The ova and parasite exam does not specifically detect Cryptosporidium, Cyclospora, Cystoisospora, and Microsporidia. For additional test information refer to [facility] consult, [email or web address] By: [email or web address] [place], [place] [email or web address] Director: Cinda Mcghee MD OVA/PARA + GIARDIA/CRYPTOSPO RIDIUM ANTIGENon 05-06-2021 Lab Specimen Source Merged with [facility] Comment on above: Order Comment: TAKEN FROM [facility], WENT TO [place] Performed By: #### O VPG3 #### [facility] [address] [place] [address] CHEST 2 VIEW PA AND LATon CHEST 2 VIEW PA AND LAT Patient Name: ADRIANE AVALOS STUDY: TH CHEST 2 VIEW PA AND LAT; 05/03/2021 10:36 am INDICATION: pain in the posterior chestwall. R07.89: Chest wall pain. COMPARISON: None. ACCESSION NUMBER(S): [id number] ORDERING CLINICIAN: BENNY GALINDO FINDINGS: CARDIOMEDIASTINAL SILHOUETTE: Cardiomediastinal silhouette is normal in size and configuration. LUNGS: There are no focal areas of consolidation or pleural effusions noted. ABDOMEN: No remarkable upper abdominal findings. BONES: No acute osseous changes. IMPRESSION: 1. No evidence of acute cardiopulmonary process. Electronically signed by: SHORTY JARRELL MD [facility] Office Visit (Family Medicin e)on 05-03-2021 Follow-up visit Diagnoses/Problems Chest wall pain (786.52) (R07.89) Skin infection (686.9) (L08.9) Parasite infestation (134.9) (B89) Orders Chest wall pain Xray Chest 2 View PA + Lateral; Status:Complete; Done: 03May2021 10:36AM Radiologist to Determine Optimal Study : Y What are the patient's signs and symptoms? : pain in the posterior chestwall. Parasite infestation Ova and Parasite + Giardia/Crypto Ag; Status:Active; Requested for:04May2021; Patient History : Travel History Skin infection Infectious Disease Referral Evaluation and Treatment Evaluate AND Treat Status: Hold For - Scheduling Requested for: 03May2021 Chief Complaint pt. co itching, pinching, stinging felling under skin. History of Present Illness patient is here for follow up regarding concerns about parasite infestation. Patient reports that after the previous course of mebendazole her symptoms significantly improved. However in the last few days she noticed more worms coming out of her nose and around her lips. She also reports that her has started having similar symptoms. She also reports that she has pain in her back chest wall in the right upper chest. Hurts intermittently. Worse with pressure on that area. Patient is concerned that the parasite may exist other organs such as lungs, heart, brain or eyes. She reports that she went to the urgent care yesterday and was started on another course of antiparasitic treatment. Unsure what the medication was. Plan: Her stool for parasites and ova did not show any evidence of parasites. Discussed the low likelihood of parasitic infestation in her brain or eyes at this time. Ordering another on parasite as the patient is concerned that there is infestation in her nose. She will bring sample. Collection container is provided. 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 X-rays ordered for further evaluation of any possible pulmonary condition. 1 Follow-up in 2 weeks 1 1 Amended By: Dayan Galindo; May 04 2021 8:55 PM ESTReview of Systems ROS negative except discussed above in HPI. Active Problems Anxiety (300.00) (F41.9) Chest tightness (786.59) (R07.89) Chronic constipation (564.00) (K59.09) Cough (786.2) (R05.9) Diarrhea, unspecified type (787.91) (R19.7) Gastritis (535.50) (K29.70) Hookworm, Citizen Of [place] (126.1) (B76.1) Stuffy and runny nose (478.19) (J34.89) Surgical History No history of surgery Family History Family history of malignant neoplasm of breast (V16.3) (Z80.3) Social History Current some day smoker (305.1) (F17.200) social smoker on weekends No advance directives (V49.89) (Z78.9) No recent foreign travel Allergies No Known Drug Allergies Recorded By: Breanne Gutiérrez; 08/18/2019 3:38:15 PM Current Meds Medication NameInstructionReason ALPRAZolam 0.5 MG Oral Tablet0.5 - 1 tabs 3 times daily as neededAnxiety Ventolin HFA 108 (90 Base) MCG/ACT Inhalation Aerosol SolutionINHALE 1 TO 2 PUFFS EVERY 4 TO 6 HOURS NEEDED.Chest tightness, Cough Emverm 100 MG Oral Tablet ChewableCHEW AND SWALLOW 1 TABLET TWICE DAILY FOR 3 DAYSHookworm, Citizen Of [place] Benadryl Allergy TABS Fluticasone Propionate 50 MCG/ACT Nasal Suspensioninstill 1 spray into each nostril once daily Zyrtec TABS Vitals Vital Signs Recorded: 03May2021 09:33AM Heart Rate96 Ogjwsevw223 Xevmtkdru19 Height5 ft 7 in Cjxkbb375 lb 5.86 oz BMI Adxsvbcdja98.99 kg/m2 BSA Calculated1.74 Tobacco Usea) Yes Patient encouraged to stop using tobacco productsYes Physical Exam Healing wounds are noticed in her forearms. Otherwise normal examination. Results/Data Xray Chest 2 View PA + [id number] 10:36Dayan Masters Test NameResultFlagReferen ce Xray Chest 2 View PA + Lateral(Report) FINAL REPORT Interpreted by: SHORTY JARRELL CRAIG, MD 05/04/21 10:53 Patient Name: ADRIANE AVALOS STUDY: TH CHEST 2 VIEW PA AND LAT; 05/03/2021 10:36 am INDICATION: pain in the posterior chestwall. R07.89: Chest wall pain. COMPARISON: None. ACCESSION NUMBER(S): [id number] ORDERING CLINICIAN: BENNY GALINDO FINDINGS: CARDIOMEDIASTINAL SILHOUETTE: Cardiomediastinal silhouette is normal in size and configuration. LUNGS: There are no focal areas of consolidation or pleural effusions noted. ABDOMEN: No remarkable upper abdominal findings. BONES: No acute osseous changes. IMPRESSION: 1. No evidence of acute cardiopulmonary process. Electronically signed by: SHORTY JARRELL 05/04/21 10:53 'Scores and Scales' Message Please let the patient know that the x-ray did not show any abnormalities in her lungs. Verified Results Xray Chest 2 View PA + [id number] 10:36Dayan Masters Test NameResultFlagReferen ce Xray Chest 2 View PA + Lateral(Report) FINAL REPORT Interpreted by: SHORTY JARRELL CRAIG, MD 05/04/21 10:53 Patient Name: ADRIANE AVALOS STUDY: TH CHEST 2 VIEW PA A (more content not included)... Normal [facility] 05-03-2021 XR Chest 2 Views Please click on the link to view the study images Normal -[facility] Work Phone: XR Chest 2 Views Normal [facility] Work Phone: Tobacco Screening.on 022 Tobacco use status [facility] a) Yes [facility] Work Phone: Tobacco Screening. Yes [facility] Work Phone: OVA/PARA + GIARDIA/CRYPTOSPO RIDIUM ANTIGENon 04-27-2021 OVA + PARASITE EXAM Negative Normal Negative [facility] Comment on above: Result Comment: INTE RPRETIVE INFORMATION: Ova and Parasite, Fecal Method for identification of Ova and Parasites includes wet mount and trichrome stains. Due to the various shedding cycles of many parasites, three separate stool specimens collected over a 5-7-day period are recommended for ova and parasite examination. A single negative result does not rule out the possibility of a parasitic infection. The ova and parasite exam does not specifically detect Cryptosporidium, Cyclospora, Cystoisospora, and Microsporidia. For additional test information refer to [facility] consult, [email or web address] Performed By: [facility] [address] [place] [address] Department: Cinda Mcghee MD Performed By: #### O VPG3 #### [employer] [address] [place], [place] [address] [address] [place] [address] OVA/PARA + GIARDIA/CRYPTOSPO RIDIUM ANTIGENon 04-23-2021 GIARDIA ANTIGEN Negative Normal Negative [facility] Comment on above: Result Comment: Perf ormed By: [employer] [address] [place] [address] Department: Cinda Mcghee MD Performed By: #### O VPG3 #### [facility] [address] [place] [address] [facility] [address] [place] [address] CRYPTOSPORIDIUM ANTIGEN Negative Normal Negative [facility] Comment on above: Result Comment: Perf ormed By: [facility] [address] [place] [address] Department: Cinda Mcghee MD Performed By: #### O VPG3 #### [facility] [address] [place] [address] [facility] [address] [place] [address] No Panel Informationon 04-20 Negative Negative [facility] Work Phone: Comment on above: Performed By: CRISTOBAL Chairez [email or web address] [place], [place] [address]Laboratory Director: Cinda Mcghee MD SOURCE: INTERPRETIVE INFORMATION: Ova and Parasite, FecalMethod for identification of Ova and Parasites includes wet mount and trichrome stains.Due to the various shedding cycles of many parasites, three separate stool specimens collected over a 5-7-day period are recommended for ova and parasite examination. A single negative result does not rule out the possibility of a parasitic infection. The ova and parasite exam does not specifically detect Cryptosporidium, Cyclospora, Cystoisospora, and Microsporidia. For additional test information refer to [facility] consult, [email or web address] By: CRISTOBAL Rodriguez[address] [place], [place] [address]Laboratory Director: Cinda Mcghee MD OVA/PARA + GIARDIA/CRYPTOSPO RIDIUM ANTIGENon 04-20-2021 Lab Specimen Source Normal [facility] Comment on above: Performed By: #### O VPG3 #### [facility] [address] [place], [place] [id number] [place] [address] Office Visit (Family Medicin e)on 04-18-2021 Follow-up visit Diagnoses/Problems Anxiety (300.00) (F41.9) Hookworm, Citizen [place] (126.1) (B76.1) Orders Anxiety Start: ALPRAZolam 0.5 MG Oral Tablet; 0.5 - 1 tabs 3 times daily as needed Hookworm, Citizen Of [place] Start: Emverm 100 MG Oral Tablet Chewable (Mebendazole); CHEW AND SWALLOW 1 TABLET TWICE DAILY FOR 3 DAYS Ova and Parasite + Giardia/Crypto Ag; Status:Active; Requested for:[id number]; Patient History : Travel History Chief Complaint pt. c/o itchy skin,can see parasites under her skin. An interactive audio and video telecommunication system which permits real time communications between the patient (at the originating site) and provider (at the distant site) was utilized to provide this telehealth service. Verbal consent was requested and obtained from ADRIANE AVALOS on this date, 04/18/2021 01:40 PM , for a telehealth visit. History of Present Illness Adriane is a 36-year-old female here for evaluation of skin lesions and worms noticed on her skin. Patient reports that 2 days ago she started to notice small lesions on her skiN which were itchy. When she scratched them she noticed that a small worm was present inside the skin lesion. Then she eventually noticed any skin lesions and noticed similar worms expressed from the wounds. She traveled to [place] about a month ago. Other than that did not have any other travel. Her daughter was treated recently for pinworms. Along with the daughter she was also treated for pinworm with 1 dose of parenteral pamoate, despite not having any symptoms because of her close proximity. She is in significant amount of distress. She has history of anxiety and she is not able to control her anxiety at this point. She has not rested for the last 16-18 hours due to the distress from her skin lesions. Previously has used alprazolam to help her anxiety pain.. Plan: Unfortunately unable to examine due to the nature of the visit. Seen the videos over the phone which are not very clear but can notice possibly some minute worm in the wounds. We will treat with 3 days course of mebendazole for possible hookworm infestation. We will sign the parasite for further evaluation from pathology. Recommended to collect clean samples. Given her acute anxiety with the current skin lesions starting alprazolam at a low dose to be taken as needed up to 3 times per day. Follow-up in 1 to 2 weeks. Active Problems Chest tightness (786.59) (R07.89) Chronic constipation (564.00) (K59.09) Cough (786.2) (R05.9) Diarrhea, unspecified type (787.91) (R19.7) Gastritis (535.50) (K29.70) Stuffy and runny nose (478.19) (J34.89) Surgical History No history of surgery Family History Family history of malignant neoplasm of breast (V16.3) (Z80.3) Social History Current some day smoker (305.1) (F17.200) social smoker on weekends No advance directives (V49.89) (Z78.9) No recent foreign travel Allergies No Known Drug Allergies Recorded By: Breanne Gutiérrez; 08/18/2019 3:38:15 PM Current Meds Medication NameInstructionReason Ventolin HFA 108 (90 Base) MCG/ACT Inhalation Aerosol SolutionINHALE 1 TO 2 PUFFS EVERY 4 TO 6 HOURS NEEDED.Chest tightness, Cough Benadryl Allergy TABS Fluticasone Propionate 50 MCG/ACT Nasal Suspensioninstill 1 spray into each nostril once daily Zyrtec TABS Physical Exam Unable to perform examination due to nature of the visit 'Scores and Scales' Signatures Electronically signed by : Dayan Galindo MD MPH; Apr 18 2021 3:56PM EST (Author) Normal [facility] X[facility] Spine Cervical 2 or 3 Vie on 02-10-2017 INR Coag RelTime (Bld) Exam Date/Time:02/10/2017 07:54 ESTReason for Exam:Neck PainReportXR Spine Cervical 2 or 3 Views.CLINICAL STATEMENT: Neck pain in a 32-year-old female.TECHNIQUE: AP, lateral, and odontoid views.COMPARISON: None.FINDINGS:7 normal cervical segments are seen. The alignment is satisfactory.Preverte bral soft tissues are normal. Disc spaces are preserved. No traumaticor degenerative change is noted.C1 and C2 appear anatomically aligned.IMPRESSION:No rmal cervical spine. FINAL REPORT Dictated: 02/10/2017 8:42 am Natalya Wise DO RSigned (Electronic Signature): 02/10/2017 8:42 amSigned by: Natalya Wise DO Technologist: [facility] Vital Signs Date Time Vital Sign Value Performing Clinician Faci lity 12-06-2024 23:51-0400 Body temperature 97.6 [degF] No Primary Care Physician [facility] 12-06-2024 23:51-0400 Diastolic blood pressure 71 mm[Hg] No Primary Care Physician [facility] 12-06-2024 23:51-0400 Heart rate 90 /min No Primary Care Physician [facility] 12-06-2024 23:51-0400 Respiratory rate 16 /min No Primary Care Physician [facility] 12-06-2024 23:51-0400 Systolic blood pressure 129 mm[Hg] No Primary Care Physician [facility] 12-06-2024 23:39-0400 Body height 167.64 cm No Primary Care Physician [facility] 12-06-2024 23:39-0400 Body mass index (BMI) [Ratio] 24.5 kg/m2 No Primary Care Physician [facility] 12-06-2024 23:39-0400 Body weight 68.76 kg No Primary Care Physician [facility] 10-13-2024 10:57-0400 Body mass index (BMI) [Ratio] 21.76 kg/m2 Abad Strong MD Work Phone: [facility] 10-13-2024 10:57-0400 Body weight 62.51 kg Abad Strong MD Work Phone: [facility] 10-13-2024 10:57-0400 Diastolic blood pressure 66 mm[Hg] Abad Strong MD Work Phone: [facility] 10-13-2024 10:57-0400 Systolic blood pressure 114 mm[Hg] Abad Strong MD Work Phone: [facility] 10-13-2024 09:06-0400 Body mass index (BMI) [Ratio] 21.91 kg/m2 Unique Mejia MD Work Phone: [facility] 10-13-2024 09:06-0400 Body weight 62.96 kg Unique Mejia MD Work Phone: [facility] 10-13-2024 09:06-0400 Diastolic blood pressure 62 mm[Hg] Unique Mejia MD Work Phone: [facility] 10-13-2024 09:06-0400 Systolic blood pressure 100 mm[Hg] Unique Mejia MD Work Phone: [facility] 09-14-2024 09:22-0400 Body mass index (BMI) [Ratio] 21.31 kg/m2 Jen Plotts BAG SHAKER.CNM Work Phone: [facility] 09-14-2024 09:22-0400 Body weight 61.24 kg Jen Plotts BAG SHAKER.CNM Work Phone: [facility] 09-14-2024 09:22-0400 Diastolic blood pressure 60 mm[Hg] Jen Plotts BAG SHAKER.CNM Work Phone: [facility] 09-14-2024 09:22-0400 Systolic blood pressure 96 mm[Hg] Jen Plotts BAG SHAKER.CNM Work Phone: [facility] 08-26-2024 10:20-0400 Body mass index (BMI) [Ratio] 21.16 kg/m2 Jen Plotts [employer] SH[employer]ER.CNM Work Phone: [facility] 08-26-2024 10:20-0400 Body weight 60.78 kg Jen Plotts BAG SHAKER.CNM Work Phone: [facility] 08-26-2024 10:20-0400 Diastolic blood pressure 66 mm[Hg] Jen Plotts BAG SHAKER.CNM Work Phone: [facility] 08-26-2024 10:20-0400 Systolic blood pressure 118 mm[Hg] Jen Plotts BAG SHAKER.CNM Work Phone: [facility] 08-04-2024 08:45-0400 Body height 169.5 cm Jen Plotts BAG [employer]ER.CNM Work Phone: [facility] 08-04-2024 08:45-0400 Body mass index (BMI) [Ratio] 21.47 kg/m2 Jen Plotts BAG SHAKER.CNM Work Phone: [facility] 08-04-2024 08:45-0400 Body weight 61.69 kg Jen Bowling BAG SHAKER.CNM Work Phone: [facility] 08-04-2024 08:45-0400 Diastolic blood pressure 66 mm[Hg] Jen Bowling BAG SHAKER.CNM Work Phone: [facility] 08-04-2024 08:45-0400 Systolic blood pressure 102 mm[Hg] Jen Bowling BAG SHAKER.CNM Work Phone: [facility] 07-28-2024 11:12-0400 Body height 167.6 cm Sanjuanita Rodarte MD Work Phone: [facility] 07-28-2024 11:12-0400 Body mass index (BMI) [Ratio] 22.27 kg/m2 Sanjuanita Rodarte MD Work Phone: [facility] 07-28-2024 11:12-0400 Body weight 62.6 kg Sanjuanita Rodarte MD Work Phone: [facility] 05-01-2024 09:10-0500 Body height 168.9 cm Valeria Werner MD Work Phone: [facility] 05-01-2024 09:10-0500 Body mass index (BMI) [Ratio] 20.89 kg/m2 Valeria Werner MD Work Phone: [facility] 05-01-2024 09:10-0500 Body temperature 96.8 [degF] Valeria Werner MD Work Phone: [facility] 05-01-2024 09:10-0500 Body weight 59.6 kg Valeria Werner MD Work Phone: [facility] 05-01-2024 09:10-0500 Diastolic blood pressure 85 mm[Hg] Valeria Werner MD Work Phone: [facility] 05-01-2024 09:10-0500 Heart rate 76 /min Valeria Werner MD Work Phone: [facility] 05-01-2024 09:10-0500 Respiratory rate 20 /min Valeria Werner MD Work Phone: [facility] 05-01-2024 09:10-0500 SaO2% (BldA) [Mass fraction] 99 % Valeria Werner MD Work Phone: [facility] 05-01-2024 09:10-0500 Systolic blood pressure 106 mm[Hg] Valeria Werner MD Work Phone: [facility] 04-23-2024 15:38-0500 Body height 167.6 cm Lisa Rommel [employer]ER.OPERATIONS OFFICER Work Phone: [facility] 04-23-2024 15:38-0500 Body mass index (BMI) [Ratio] 22.18 kg/m2 Lisa Rommel BAG SHAKER.OPERATIONS OFFICER Work Phone: [facility] 04-23-2024 15:38-0500 Body weight 62.32 kg Lisa Felt BAG SHAKER.OPERATIONS OFFICER Work Phone: [facility] 04-23-2024 15:38-0500 Diastolic blood pressure 70 mm[Hg] Lisa Felt BAG SHAKER.OPERATIONS OFFICER Work Phone: [facility] 04-23-2024 15:38-0500 Systolic blood pressure 120 mm[Hg] Lisa Felt BAG SHAKER.OPERATIONS OFFICER Work Phone: [facility] 04-14-2024 15:08-0500 Body height 167.6 cm Sanjuanita Rodarte MD Work Phone: [facility] 04-14-2024 15:08-0500 Body mass index (BMI) [Ratio] 24.21 kg/m2 Sanjuanita Rodarte MD Work Phone: [facility] 04-14-2024 15:08-0500 Body weight 68.04 kg Sanjuanita Rodarte MD Work Phone: [facility] 04-14-2024 15:08-0500 Diastolic blood pressure 72 mm[Hg] Sanjuanita Rodarte MD Work Phone: [facility] 04-14-2024 15:08-0500 Heart rate 68 /min Sanjuanita Rodarte MD Work Phone: [facility] 04-14-2024 15:08-0500 Respiratory rate 18 /min Sanjuanita Rodarte MD Work Phone: [facility] 04-14-2024 15:08-0500 Systolic blood pressure 116 mm[Hg] Sanjuanita Rodarte MD Work Phone: [facility] 03-26-2024 11:11-0500 Body height 167.6 cm Sanjuanita Rodarte MD Work Phone: [facility] 03-26-2024 11:11-0500 Body mass index (BMI) [Ratio] 24.21 kg/m2 Sanjuanita Rodarte MD Work Phone: [facility] 03-26-2024 11:11-0500 Body weight 68.04 kg Sanjuanita Rodarte MD Work Phone: [facility] 09-20-2023 13:36-0400 Body height 167.6 cm Shila Herrera MD Work Phone: [facility] 09-20-2023 13:36-0400 Body mass index (BMI) [Ratio] 22.6 kg/m2 Shila Herrera MD Work Phone: [facility] 09-20-2023 13:36-0400 Body temperature 97.81 [degF] Shila Herrera MD Work Phone: [facility] 09-20-2023 13:36-0400 Body weight 63.5 kg Shila Herrera MD Work Phone: [facility] 09-20-2023 13:36-0400 Diastolic blood pressure 74 mm[Hg] Shila Herrera MD Work Phone: [facility] 09-20-2023 13:36-0400 Heart rate 90 /min Shila Herrera MD Work Phone: [facility] 09-20-2023 13:36-0400 Respiratory rate 17 /min Shila Herrera MD Work Phone: [facility] 09-20-2023 13:36-0400 SaO2% (BldA) [Mass fraction] 99 % Shila Herrera MD Work Phone: [facility] 09-20-2023 13:36-0400 Systolic blood pressure 110 mm[Hg] Shila Herrera MD Work Phone: [facility] 09-09-2023 20:02-0400 Diastolic blood pressure 67 mm[Hg] Dayan Galindo MD MPH Work Phone: [facility] 09-09-2023 20:02-0400 Heart rate 60 /min Dayan aGlindo MD MPH Work Phone: [facility] 09-09-2023 20:02-0400 Respiratory rate 16 /min Dayan Galindo MD MPH Work Phone: [facility] 09-09-2023 20:02-0400 SaO2% (BldA) [Mass fraction] 96 % Dayan Galindo MD MPH Work Phone: [facility] 09-09-2023 20:02-0400 Systolic blood pressure 110 mm[Hg] Dayan Galindo MD MPH Work Phone: [facility] 09-09-2023 15:54-0400 Body height 167.6 cm Dayan Galindo MD MPH Work Phone: [facility] 09-09-2023 15:54-0400 Body mass index (BMI) [Ratio] 24.21 kg/m2 Dayan Galindo MD MPH Work Phone: [facility] 09-09-2023 15:54-0400 Body temperature 97.59 [degF] Dayan Galindo MD MPH Work Phone: [facility] 09-09-2023 15:54-0400 Body weight 68.04 kg Dayan Galindo MD MPH Work Phone: [facility] 04-18-2023 15:29-0500 Body height 167.6 cm Lisa Rommel B[employer]ER.OPERATIONS OFFICER Work Phone: [facility] 04-18-2023 15:29-0500 Body weight 71.4 kg Lisa Felt BAG SHAKER.OPERATIONS OFFICER Work Phone: [facility] 04-18-2023 15:29-0500 Diastolic blood pressure 76 mm[Hg] Lisa Rommel BAG SHAKER.OPERATIONS OFFICER Work Phone: [facility] 04-18-2023 15:29-0500 Systolic blood pressure 110 mm[Hg] Lisa Rommel BAG SHAKER.OPERATIONS OFFICER Work Phone: [facility] 11-29-2021 11:10-0400 Diastolic blood pressure 86 mm[Hg] Dayan Nag Mallapareddi [facility] 11-29-2021 11:10-0400 Heart rate 102 /min Dayan Lilibeth Mallapareddi [facility] 11-29-2021 11:10-0400 Respiratory rate 18 /min Dayan Nag Mallapareddi [facility] 11-29-2021 11:10-0400 SaO2% (BldA) [Mass fraction] 98 % Dayan Nag Mallapareddi [facility] 11-29-2021 11:10-0400 Systolic blood pressure 97 mm[Hg] Dayan Nag Mallapareddi [facility] 11-29-2021 10:18-0400 Body height 167.6 cm Dayan Nag Mallapareddi [facility] 11-29-2021 10:18-0400 Body temperature 100.76 [degF] Dayan Nag Mallapareddi [facility] 11-29-2021 10:18-0400 Body weight 63.5 kg Dayan Nag Mallapareddi [facility] 09-18-2021 11:43-0400 Body height 170.18 cm Dayan Nag S Mallapareddi Work Phone: AQ-Tvbibzx-Ujiouiw Work Phone: 09-18-2021 11:43-0400 Body mass index (BMI) [Ratio] 21.67 kg/m2 Dayan Nag S Mallapareddi Work Phone: YH-Ejhzkpm-Yjzhpef Work Phone: 09-18-2021 11:43-0400 Body surface area Derived from formula 1.73 m2 Dayan Nag S Mallapareddi Work Phone: SJ-Csinuxw-Nkrjtsv Work Phone: 09-18-2021 11:43-0400 Body weight 62.77 kg Dayan Nag S Mallapareddi Work Phone: XK-Ykmjvuf-Zqbhnor Work Phone: 09-18-2021 11:43-0400 Diastolic blood pressure 70 mm[Hg] Dayan Nag S Mallapareddi Work Phone: AW-Qmgufmi-Exnzdnh Work Phone: 09-18-2021 11:43-0400 Heart rate 70 /min Dayan Nag S Mallapareddi Work Phone: VK-Dqcmqcd-Vqznnza Work Phone: 09-18-2021 11:43-0400 Systolic blood pressure 118 mm[Hg] Dayan Nag S Mallapareddi Work Phone: CB-Febefjv-Aqawlbb Work Phone: 09-18-2021 05:30-0400 Diastolic blood pressure 72 mm[Hg] Dayan Nag Mallapareddi [facility] 09-18-2021 05:30-0400 Heart rate 61 /min Dayan Nag Mallapareddi [facility] 09-18-2021 05:30-0400 Respiratory rate 17 /min Dayan Nag Mallapareddi [facility] 09-18-2021 05:30-0400 SaO2% (BldA) [Mass fraction] 100 % Dayan Nag Mallapareddi [facility] 09-18-2021 05:30-0400 Systolic blood pressure 112 mm[Hg] Dayan Nag Mallapareddi [facility] 09-14-2021 13:19-0400 Body temperature 98.1 [degF] Azael Hinds MD Work Phone: [facility] 09-14-2021 13:19-0400 Diastolic blood pressure 95 mm[Hg] Azael Hinds MD Work Phone: [facility] 09-14-2021 13:19-0400 Heart rate 50 /min Azael Hinds MD Work Phone: [facility] 09-14-2021 13:19-0400 Respiratory rate 16 /min Azael Hinds MD Work Phone: [facility] 09-14-2021 13:19-0400 Systolic blood pressure 135 mm[Hg] Azael Hinds MD Work Phone: [facility] 09-14-2021 08:51-0400 Body height 167.6 cm Azael Hinds MD Work Phone: [facility] 09-14-2021 08:51-0400 Body mass index (BMI) [Ratio] 23.5 kg/m2 Azael Hinds MD Work Phone: [facility] 09-14-2021 08:51-0400 Body weight 66 kg Azael Hinds MD Work Phone: [facility] 09-14-2021 08:51-0400 SaO2% (BldA) [Mass fraction] 100 % Azael Hinds MD Work Phone: [facility] 05-03-2021 09:33-0500 Body height 170.18 cm Dayan Nag S Mallapareddi Work Phone: [facility] Work Phone: 05-03-2021 09:33-0500 Body mass index (BMI) [Ratio] 21.99 kg/m2 Dayan Nag S Mallapareddi Work Phone: [facility] Work Phone: 05-03-2021 09:33-0500 Body surface area Derived from formula 1.74 m2 Dayan Nag S Mallapareddi Work Phone: [facility] Work Phone: 05-03-2021 09:33-0500 Body weight 63.67 kg Dayan Nag S Mallapareddi Work Phone: [facility] Work Phone: 05-03-2021 09:33-0500 Diastolic blood pressure 82 mm[Hg] Dayan Nag S Mallapareddi Work Phone: [facility] Work Phone: 05-03-2021 09:33-0500 Heart rate 96 /min Dayan Nag S Mallapareddi Work Phone: [facility] Work Phone: 05-03-2021 09:33-0500 Systolic blood pressure 112 mm[Hg] Dayan Nag S Mallapareddi Work Phone: [facility] Work Phone: 05-02-2021 19:27-0500 Body height 167.6 cm Summer Milner OPERATIONS OFFICER Work Phone: [facility] 05-02-2021 19:27-0500 Body mass index (BMI) [Ratio] 23.4 kg/m2 Summer Milner OPERATIONS OFFICER Work Phone: [facility] 05-02-2021 19:27-0500 Body temperature 97.2 [degF] Summer Milner OPERATIONS OFFICER Work Phone: [facility] 05-02-2021 19:27-0500 Body weight 65.77 kg Summerliya Milner OPERATIONS OFFICER Work Phone: [facility] 05-02-2021 19:27-0500 Diastolic blood pressure 87 mm[Hg] Summer Conn OPERATIONS OFFICER Work Phone: [facility] 05-02-2021 19:27-0500 Heart rate 87 /min Summerliya Milner OPERATIONS OFFICER Work Phone: [facility] 05-02-2021 19:27-0500 Respiratory rate 16 /min Summerliya Milner OPERATIONS OFFICER Work Phone: [facility] 05-02-2021 19:27-0500 SaO2% (BldA) [Mass fraction] 100 % Summer Milner OPERATIONS OFFICER Work Phone: [facility] 05-02-2021 19:27-0500 Systolic blood pressure 133 mm[Hg] Summer Milner OPERATIONS OFFICER Work Phone: [facility] Encounters Encounter Date Encounter Type Care Provider Facility Start: 12-28-2024 End: 12-28-2024 ambulatory JEN BOWLING Facility:[facility] [place] Start: 12-14-2024 End: 12-14-2024 ambulatory OTONIEL DEL VALLE Facility:[facility] [place] Start: 12-11-2024 End: 12-11-2024 [facility] [place] Start: 12-08-2024 End: 12-08-2024 ambulatory UNIQUE MEJIA Facility:[facility] [place] Start: 12-06-2024 End: 12-07-2024 ambulatory No Primary Care Physician Facility:[facility] Start: 12-06-2024 End: 12-07-[address] Lisa Chapman DO [facility] Work Phone: Start: 12-02-2024 End: 12-02-2024 ambulatory SANJUANITA RODARTE Facility:[facility] Start: 11-25-2024 ambulatory SANJUANITA RODARTE Faci lity:[facility] [place] Start: 11-24-2024 End: 11-24-2024 ambulatory LINDA CARMONA Facility:[facility] [place] Start: 11-17-2024 End: 11-17-2024 [facility] Facility:[facility] [place] Start: 10-13-2024 End: 10-13-2024 Patient encounter procedure Whi Tech 1 Enrobing Machine Feeder [facility] Comment on above: screening for malformation using ultrasonics (HCC) (Primary Dx); Multigravida of advanced maternal age in second trimester (HCC); 19 weeks gestation of (HCC) History of pre-eclam psia (Primary Dx); History of melanoma; 19 weeks gestation of ([facility]) Encounter for superv ision of high risk in second trimester, antepartum (HCC) (Primary Dx); 19 weeks gestation of (HCC); Advanced maternal age in multigravida, second trimester (HCC) Start: 10-13-2024 End: 10-13-2024 ambulatory UNIQUE MEJIA Facility:[facility] [place] Start: 10-05-2024 End: 10-05-2024 Telephone encounter Ramya Rinaldi MS Work Phone: [facility] Start: 09-21-2024 End: 09-21-2024 Orders Only Ramya Rinaldi MS Work Phone: [facility] Comment on above: Malignant melanoma o f skin (HCC) (Primary Dx); Family history of breast cancer; Family history of melanoma genetic testing upda te Start: 09-14-2024 End: 09-14-2024 Patient encounter procedure Jen Bowling APRN.QUITA Work Phone: OB/Gynecology Comment on above: 15 weeks gestation o f ([facility]) (Primary Dx); CHERI (generalized anxiety disorder); Multigravida of advanced maternal age in second trimester ([facility]); Encounter for supervision of high risk in second trimester, antepartum ([facility]); Constipation during in second trimester ([facility]) Start: 09-14-2024 End: 09-14-2024 [facility] [place] Start: 09-10-2024 End: 09-10-2024 Emergency department patient visit BENY MENDOZA [facility] Start: 08-26-2024 End: 08-26-2024 ambulatory JEN BOWLING Facility:[facility] [place] Start: 08-26-2024 End: 08-26-2024 Patient encounter procedure Jen Bowling BAG SHAKER.CNMihaela Work Phone: OB/Gynecology Comment on above: 12 weeks gestation o f ([facility]) (Primary Dx); History of delivery; History of pre-eclampsia; Nausea/vomiting in ([facility]) Encounter for antena trista screening for malformation using ultrasound ([facility]) (Primary Dx); 12 weeks gestation of ([facility]); Multigravida of advanced maternal age in first trimester ([facility]) Start: 08-19-2024 End: 08-19-2024 ambulatory JEN [facility] Facility:[facility] [place] Start: 08-17-2024 End: 10-17-2024 Follow-up encounter Jen Bowling APRN.CNM Work Phone: OB/Gynecology Start: 08-10-2024 End: 08-10-2024 [facility]ulatory [facility] [place] Start: 08-06-2024 End: 08-06-2024 Telephone encounter Nurse Enrobing Machine Feeder Jerrica Lopez Work Phone: Obstetrics/Gynecology Comment on above: PRAF Start: 08-05-2024 ambulatory DMITRY GUTIÉRREZ Facility :[facility] [place] Start: 08-05-2024 End: 08-05-2024 Subsequent hospital visit by physician [facility] 2 Work Phone: Radiology Comment on above: Malignant melanoma o f torso excluding breast (HCC) [C43.59] Start: 08-04-2024 End: 08-04-2024 Patient encounter procedure eJn Bowling APRN.CNM Work Phone: OB/Gynecology Comment on above: Encounter for superv ision of high risk in first trimester, antepartum (HCC) (Primary Dx); 9 weeks gestation of (HCC); with uncertain dates in first trimester (HCC); Multigravida of advanced maternal age in first trimester (HCC); History of pre-eclampsia; History of melanoma; History of delivery; CHERI (generalized anxiety disorder); History of positive PPD, untreated; 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); History of depression; Heartburn during in first trimester (HCC) Start: 08-04-2024 End: 08-04-2024 [facility] [place] Start: 08-03-2024 End: 08-03-2024 E-mail encounter from caregiver Jen Bowling REA Work Phone: OB/Gynecology Start: 08-03-2024 End: 08-03-2024 Patient encounter procedure Jen Bowling APRN.CNM Work Phone: OB/Gynecology Comment on above: New OB appointment o n 08/04/24 Start: 07-29-2024 End: 07-29-2024 ambulatory Elsa Das RN Hematology/Oncology Start: 07-29-2024 End: 07-29-2024 E-mail encounter from caregiver Elsa Das RN Hematology/Oncology Start: 07-28-2024 End: 07-28-2024 Office outpatient visit 25 minutes Sanjuanita Rodarte MD Work Phone: [facility] Comment on above: Malignant melanoma o f torso excluding breast (HCC) (Primary Dx) Start: 07-28-2024 End: 07-28-2024 ambulatory SANJUANITA RODARTE Facility:[facility] Start: 07-16-2024 End: 07-16-2024 ambulatory ARIN TAYLOR Facility:[facility] [place] Start: 06-01-2024 End: 06-05-2024 ambulatory Valeria Werner MD Work Phone: Hematology/Oncology Comment on above: pathology re-review Start: 06-01-2024 End: 06-05-2024 E-mail encounter from caregiver Valeria Werner MD Work Phone: Hematology/Oncology Start: 06-01-2024 End: 08-01-2024 Follow-up encounter Valeria Werner MD Work Phone: Hematology/Oncology Start: 05-28-2024 End: 05-28-2024 ambulatory Dmitry Gutiérrez [facility] Work Phone: [facility] Comment on above: Family history of me lanoma (Primary Dx); Malignant melanoma of skin (HCC); Family history of breast cancer Start: 05-28-2024 End: 05-28-2024 Telemedicine consultation with patient Dmitry Gutiérrez [facility] Work Phone: [facility] Start: 05-13-2024 End: 07-13-2024 Follow-up encounter Sanjuanita Rodarte MD Work Phone: [facility] Start: 05-13-2024 End: 05-13-2024 ambulatory SANJUANITA RODARTE Facility:[facility] [place] Start: 05-13-2024 End: 05-13-2024 Subsequent hospital visit by physician Us Walter A21 5 Work Phone: Radiology Start: 05-01-2024 End: 05-01-2024 ambulatory VALERIA WERNER Facility:[facility] [place] Start: 05-01-2024 End: 05-01-2024 Follow-up encounter Valeria Werner MD Work Phone: Hematology/Oncology Comment on above: Encounter for follow -up surveillance of melanoma (Primary Dx); 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); Malignant melanoma of skin (HCC); 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) Start: 05-01-2024 End: 05-01-2024 Patient encounter procedure Valeria Werner MD Work Phone: Hematology/Oncology Start: 04-24-2024 End: 06-24-2024 Orders Only Sanjuanita Rodarte MD Work Phone: [facility] Comment on above: Malignant melanoma o f back (HCC) (Primary Dx) Malignant melanoma o f torso excluding breast (HCC) (Primary Dx) Start: 04-23-2024 End: 04-23-2024 Patient encounter procedure Lisa Carney APRN.CNP Work Phone: OB/Gynecology Comment on above: Encounter for gyneco logical examination (general) (routine) without abnormal findings (Primary Dx); Screen for STD (sexually transmitted disease); Encounter for insertion of intrauterine contraceptive device (IUD) Start: 04-23-2024 End: 04-23-2024 Patient encounter status Lisa Carney APRN.OPERATIONS OFFICER Work Phone: [facility] Start: 04-23-2024 End: 04-23-2024 ambulatory LISA CARNEY Facility:[facility] [place] Start: 04-23-2024 End: 04-23-2024 ambulatory SANJUANITA RODARTE Facility:[facility] [place] Start: 04-23-2024 End: 04-23-2024 Subsequent hospital visit by physician [facility] (I-Stat) Work Phone: Cat Scan Comment on above: Malignant melanoma o f torso excluding breast (HCC) [C43.59] Start: 04-17-2024 End: 04-17-2024 Orders Only Sanjuanita Rodarte MD Work Phone: [facility] Start: 04-16-2024 End: 04-16-2024 Orders Only Sanjuanita Rodarte MD Work Phone: [facility] Comment on above: Malignant melanoma o f torso excluding breast (HCC) (Primary Dx) Start: 04-14-2024 End: 04-14-2024 Postop follow up visit related to original px Sanjuanita Rodarte MD Work Phone: [facility] Comment on above: Malignant melanoma o f torso excluding breast (HCC) (Primary Dx) Start: 04-14-2024 End: 04-14-2024 ambulatory SANJUANITA RODARTE Facility:[facility] Start: 04-09-2024 End: 04-09-2024 Orders Only Sanjuanita Rodarte MD Work Phone: [facility] Comment on above: Malignant melanoma o f torso excluding breast (HCC) (Primary Dx) Start: 03-26-2024 End: 03-26-2024 Office outpatient new 60 minutes Sanjuanita Rodarte MD Work Phone: [facility] Comment on above: Malignant melanoma o f torso excluding breast (HCC) (Primary Dx) Start: 03-26-2024 End: 03-26-2024 Orders Only Sanjuanita Rodarte MD Work Phone: [facility] Comment on above: Malignant melanoma o f back (HCC) (Primary Dx) Start: 12-04-2023 End: 12-04-2023 Refill Lisa Rommel PAREDES Work Phone: OB/Gynecology Comment on above: Refill Request Start: 09-20-2023 End: 09-20-2023 Office outpatient new 30 minutes Shila Herrera MD Work Phone: [facility] Comment on above: Internal hemorrhoids (Primary Dx) Start: 09-09-2023 End: 09-09-2023 Emergency department patient visit DAYAN Wells [facility] Work Phone: Comment on above: Kidney stone on righ t side (Primary Dx) Start: 04-18-2023 End: 04-18-2023 Patient encounter procedure Lisa Carney OPERATIONS OFFICER Work Phone: OB/Gynecology Comment on above: Encounter for gyneco logical examination (general) (routine) without abnormal findings (Primary Dx); Screening for cervical cancer; Encounter for screening for human papillomavirus (HPV); Screening for STDs (sexually transmitted diseases) Start: 04-18-2023 End: 04-18-2023 Patient encounter status Lisa Carney OPERATIONS OFFICER Work Phone: [facility] Start: 03-17-2022 End: 03-18-2022 Emergency department patient visit [facility] Start: 11-29-2021 End: 11-29-2021 Emergency department patient visit Issa Gomez [facility] Emergency 04 Start: 09-28-2021 ambulatory [id number] Start: 09-18-2021 amb[id number] Start: 09-18-2021 Patient encounter procedure Dayan Galindo Work Phone: [facility] Work Phone: Start: 09-18-2021 End: 09-18-2021 Emergency department patient visit Joseph Gallegos [facility] Emergency 11 Start: 09-14-2021 End: 09-14-2021 [id number] Start: 09-14-2021 End: 09-14-2021 Subsequent hospital visit by physician Azael Hinds MD Work Phone: [facility] Comment on above: Hydronephrosis with renal and ureteral calculous obstruction (Primary Dx); Contact with and (suspected) exposure to covid-19; Nicotine dependence, unspecified, uncomplicated; Calculus of ureter; Right lower quadrant pain Start: 05-17-2021 ambulatory [facility] Facility:[id number] Start: 05-17-2021 EPV, Provider: Dayan Galindo, Status: Pen, Time: 10:00 AM Dayan Wells Mallapareddi Work Phone: [facility] Work Phone: Start: 05-15-2021 Chart Update Dayan Blakereddi Work Phone: [facility] Work Phone: Start: 05-08-2021 AUDIT Dayan Wells Mallapareddi Work Phone: [facility] Work Phone: Start: 05-06-2021 ambulatory Dayan Lilibeth [facility] Mallapareddi Facility:[id number] Start: 05-03-2021 ambulatory Dayan Mcel[facility] Mallapareddi Facility:[id number] Start: 05-03-2021 Office outpatient vi sit 25 minutes Dayan Wells Mallapareddi Work Phone: [facility] Work Phone: Start: 05-03-2021 Patient encounter procedure Dayan Blakereddi Work Phone: [facility] Work Phone: Start: 05-02-2021 End: 05-02-2021 Office outpatient new 20 minutes Summer Milner CNP Work Phone: [facility] Comment on above: Rash and nonspecific skin eruption (Primary Dx); Cigarette smoker Start: 05-02-2021 End: 05-02-2021 ambulatory DAYAN [facility] Start: 04-18-2021 Office outpatient vi sit 15 minutes Michelle Mckee [facility] Work Phone: Start: 04-18-2021 ambulatory [facility]ANMARIBELL [facility] Facility:[id number] Start: 02-10-2017 End: 02-10-2017 Emergency department patient visit Rhys Drake Facility:[facility] Start: 05-19-2015 End: 05-10-2017 Patient requested procedure Lisa Carney APRN.OPERATIONS OFFICER Work Phone: [facility] Procedures Date Procedure Procedure Detail Performing Clinician Start: 12-07-2024 Measurement of pH in vaginal fluid specimen using nitrazine yellow for detection of rupture of amniotic membrane No Primary Care Physician Comment on above: Amniotic fluid not p resent indicates No Rupture of FetalMembranes at time of specimen collection. Start: 12-07-2024 Urnls dip stick/tabl et reagent auto microscopy No Primary Care Physician Start: 10-13-2024 Us preg uterus after 1st trimest / gestation Jen Bowling BAG SHAKER.CNM Work Phone: Start: 08-26-2024 Us preg uterus after 1st trimest / gestation Jen Bowling BAG SHAKER.CNM Work Phone: Start: 08-19-2024 Antibody screen DMITRY GUTIÉRREZ Comment on above: Order Comment: Speci men Type: BLOOD SPECIMEN Ordering Facility: [facility] Address: [address] [place] [address] Performed By: #### 7 [id number], [id number], [id number] #### [facility] CLIA [id number] [address] [place] [address] [place] Start: 08-05-2024 Us lmtd joint/oth no nvasc xtr strux r-t w/img Sanjuanita Rodarte MD Work Phone: Start: 08-04-2024 Iadna chlamydia trac homatis amplified probe tq Jen Bowilng BAG SHAKER.KARMENM Work Phone: Start: 08-04-2024 Us uterus l imited 1/> fetuses Jen Bowling BAG SHAKER.KARMENM Work Phone: Start: 05-13-2024 Us soft tissue head & neck real time imge docm Sanjuanita Rodarte MD Work Phone: Start: 04-23-2024 Mri brain brain stem w/o w/contrast material Sanjuanita Rodarte MD Work Phone: Start: 04-23-2024 Ct abdomen & pelvis w/contrast material Sanjuanita Rodarte MD Work Phone: Start: 04-23-2024 Ct thorax w/contrast material Sanjuanita Rodarte MD Work Phone: Start: 09-09-2023 Ct abdomen & pelvis w/contrast material Selam Marcelo BAG SHAKER-OPERATIONS OFFICER Work Phone: Start: 09-09-2023 Urinalysis complete W Reflex Culture panel - Urine Selam Marcelo BAG SHAKER-OPERATIONS OFFICER Work Phone: Start: 09-09-2023 Urine test visual color cmprsn meths Selam Marcelo BAG SHAKER-OPERATIONS OFFICER Work Phone: Start: 09-09-2023 Urnls dip stick/tabl et reagent auto microscopy Selam Robbinsderquirino BAG SHAKER-OPERATIONS OFFICER Work Phone: Start: 09-09-2023 Comprehensive metabo lic panel Selam Marcelo BAG SHAKER-OPERATIONS OFFICER Work Phone: Start: 04-18-2023 Iadna chlamydia trac homatis amplified probe tq Lisa Felt BAG SHAKER.OPERATIONS OFFICER Work Phone: Start: 04-18-2023 Microscopic observat ion [Identifier] in Cervix by Cyto stain Dayan Galindo MD MPH Work Phone: Start: 09-14-2021 X-ray urinary tract exam with contrast material Azael Hinds MD Work Phone: Start: 09-14-2021 Surgical pathology study Azael Hinds MD Work Phone: Start: 09-14-2021 SARS-CoV-2 (COVID-19 ) RNA [Presence] in Respiratory specimen by YAS with probe detection Ahmet Robertsonft DO Work Phone: Start: 09-14-2021 Ct abdomen & pelvis w/contrast material Ahmet Carcamo DO Work Phone: Start: 09-14-2021 Bacteria identified in Urine by Culture Ahmet Carcamo DO Work Phone: Start: 09-14-2021 Choriogonadotropin ( test) [Presence] in Urine Ahmet Bonilla [employer] Work Phone: Start: 09-14-2021 Urinalysis complete W Reflex Culture panel - Urine Ahmet Bonilla [employer] Work Phone: Start: 09-14-2021 Urinalysis microscop ic panel - Urine Qualitative by Automated Ahmet Bonilla [employer] Work Phone: Start: 09-14-2021 Blood count complete auto&auto difrntl wbc Ahmet Bonilla [employer] Work Phone: Start: 09-14-2021 Comprehensive metabo lic 2000 panel - Serum or Plasma Ahmet Bonilla [employer] Work Phone: Start: 09-14-2021 Lactate [Moles/volum e] in Serum or Plasma Ahmet Bonilla [employer] Work Phone: No history of surgery Michelle Mckee Plan of Treatment Date Care Activity Detail Author Start: 01-26-2036 Zoster Vaccines (1 o f 2) Zoster Vaccines (1 of 2) [facility] Start: 04-18-2028 Screening for malign ant neoplasm of cervix [facility] Start: 04-18-2026 Screening for malign ant neoplasm of cervix [facility] Start: 10-10-2025 DTaP/Tdap/Td Vaccine s (2 - Td or Tdap) DTaP/Tdap/Td Vaccines (2 - Td or Tdap) [facility] Start: 10-10-2025 Tetanus vaccination Tetanus: Every 1 0yrs [facility] Start: 10-10-2025 Urine microalbumin profile DTaP,Tdap,Td Vaccine (2 - Td or Tdap) [facility] Start: 04-26-2025 End: 04-26-2025 Patient encounter procedure 04/26/2025 4:00 PM EST Office Visit OB/Gynecology [address] [place] [address] Lisa Carney APRN.OPERATIONS OFFICER [address] [place], [place] [address] Annual OB/Gynecology Comment on above: Annual Start: 01-10-2025 RSV Vaccine (1 - Ris k 1-dose series) RSV Vaccine (1 - Risk 1-dose series) [facility] Start: 12-07-2024 [facility] Start: 12-06-2024 Nonstress test [facility] Start: 12-06-2024 Obstetric monitoring [facility] Start: 12-06-2024 Vital signs measurements [facility] Start: 12-06-2024 [facility] Start: 11-24-2024 End: 11-24-2024 Admission to same day surgery center 11/24/2024 3:45 PM EDT [facility] SURGERY DEPARTMENT 1 [facility] 3rd Floor [place] [id number] Sanjuanita Rodarte MD [address] [place] [phone] Fu Ultrasound 11/10(LEFT MESSAGE TO R/S 08/24) [facility] SURGERY [facility] Comment on above: Fu Ultrasound 11/10( LEFT MESSAGE TO R/S 08/24) Start: 11-17-2024 End: 11-17-2024 Admission to same day surgery center [facility] SURGERY DEPARTMENT Comment on above: Fu Ultrasound 11/10 Fu Ultrasound 11/10( LEFT MESSAGE TO R/S 08/24) Start: 11-10-2024 End: 11-10-2024 Patient encounter procedure Radiology Comment on above: Malignant melanoma o f torso excluding breast (HCC) [C43.59] OB Start: 10-26-2024 Influenza vaccination [facility] Start: 10-13-2024 End: 10-13-2024 Patient encounter procedure [facility] Comment on above: Anatomy Consult to MFM Anatomy/MFM/OB Start: 09-14-2024 End: 09-14-2024 Patient encounter procedure 09/14/2024 9:15 AM EDT Routine Office Visit OB/Gynecology [address] [place] [address] Jen Bowling APRN.CN [address] [place] [address] OB OB/Gynecology Comment on above: OB Start: 09-03-2024 End: 08-03-2025 OBSTETRIC ULTRASOUND WHI OBSTETRIC ULTRASOUND WHI Anc Imaging Routine Encounter for supervision of high risk in first trimester, antepartum (HCC) Expected: 09/03/2024, Expires: 08/03/2025 [facility] Comment on above: Expected: 09/03/2024 , Expires: 08/03/2025 Start: 09-03-2024 End: 09-03-2024 Patient encounter procedure 09/03/2024 10:20 AM EDT Routine Office Visit OB/Gynecology [address] [place], [place] [id number] Abad Strong MD [address] [place], [place] [id number] Initial OB - LMP 05/23 OB/Gynecology Comment on above: Initial OB - LMP 04/26 9 Start: 08-26-2024 End: 08-26-2024 Patient encounter procedure Maternal Medicine Comment on above: Nuchal OB Start: 08-18-2024 End: 11-17-2024 ANEMIA REFLEX PANEL ANEMIA REFLEX PANEL Lab Routine Encounter for supervision of high risk in first trimester, antepartum (HCC) Expected: 08/18/2024, Expires: 11/17/2024 [facility] Work Phone: Comment on above: Expected: 08/18/2024 , Expires: 11/17/2024 Start: 08-18-2024 End: 11-17-2024 Hemoglobin A1c in Blood HEMOGLOBIN A1C Lab Routine Encounter for supervision of high risk in first trimester, antepartum (HCC) Expected: 08/18/2024, Expires: 11/17/2024 [facility] Comment on above: Expected: 08/18/2024 , Expires: 11/17/2024 Start: 08-18-2024 End: 11-17-2024 Hepatitis B virus surface Ag [Presence] in Serum HEPATITIS B SURFACE ANTIGEN Lab Routine Encounter for supervision of high risk in first trimester, antepartum (HCC) Expected: 08/18/2024, Expires: 11/17/2024 [facility] Comment on above: Expected: 08/18/2024 , Expires: 11/17/2024 Start: 08-18-2024 End: 11-17-2024 Hepatitis C virus Ab [Presence] in Serum HEPATITIS C ANTIBODY IA WITH CONFIRMATION Lab Routine Encounter for supervision of high risk in first trimester, antepartum (HCC) Expected: 08/18/2024, Expires: 11/17/2024 [facility] Comment on above: Expected: 08/18/2024 , Expires: 11/17/2024 Start: 08-18-2024 End: 11-17-2024 HIV 1+2 Ab [Presence] in Serum or Plasma by Immunoassay HIV 1/2 COMBO WITH REFLEX TO DIFFERENTIATION Lab Routine Encounter for supervision of high risk in first trimester, antepartum (HCC) Expected: 08/18/2024, Expires: 11/17/2024 [facility] Comment on above: Expected: 08/18/2024 , Expires: 11/17/2024 Start: 08-18-2024 End: 08-03-2025 OBSTETRIC ULTRASOUND WHI OBSTETRIC ULTRASOUND WHI Anc Imaging Routine Encounter for supervision of high risk in first trimester, antepartum (HCC) Expected: 08/18/2024, Expires: 08/03/2025 [facility] Comment on above: Expected: 08/18/2024 , Expires: 08/03/2025 Start: 08-18-2024 End: 11-17-2024 RUBELLA IGG ANTIBODY RUBELLA IGG ANTIBODY Lab Routine Encounter for supervision of high risk in first trimester, antepartum (HCC) Expected: 08/18/2024, Expires: 11/17/2024 [facility] Comment on above: Expected: 08/18/2024 , Expires: 11/17/2024 Start: 08-18-2024 End: 11-17-2024 SYPHILIS TREPONEMAL W/REFLEX SYPHILIS TREPONEMAL W/REFLEX Lab Routine Encounter for supervision of high risk in first trimester, antepartum (HCC) Expected: 08/18/2024, Expires: 11/17/2024 [facility] Comment on above: Expected: 08/18/2024 , Expires: 11/17/2024 Start: 08-18-2024 End: 11-17-2024 TYPE + SCREEN TYPE + SCREEN Blood Bank Routine Encounter for supervision of high risk in first trimester, antepartum (HCC) Expected: 08/18/2024, Expires: 11/17/2024 [facility] Comment on above: Expected: 08/18/2024 , Expires: 11/17/2024 Start: 08-05-2024 End: 08-05-2024 Patient encounter procedure 08/05/2024 10:45 AM EDT Appointment Radiology [address] [place] [address] tried to leave vm about canceling diagnostic mammogram after verifying with Dr. Lang-bogdan full, Requested Diagnostic mammogram orders only if needed, per Dr. Lang. Dx: 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) [C43.59] Radiology Comment on above: tried to leave vm ab out canceling diagnostic mammogram after verifying with Dr. Grady full, Requested Diagnostic mammogram orders only if needed, per Dr. Lang. Dx: 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) [C43.59] Start: 08-04-2024 End: 11-03-2024 Chromosome 21 trisomy [Presence] in Blood or Tissue by Cytogenetics [id number] PLUS Lab Routine Encounter for supervision of high risk in first trimester, antepartum (HCC) 9 weeks gestation of (HCC) Multigravida of advanced maternal age in first trimester ([facility]) History of pre-eclampsia History of melanoma History of delivery Expected: 08/04/2024, Expires: 11/03/2024 [facility] Comment on above: Expected: 08/04/2024 , Expires: 11/03/2024 Start: 08-04-2024 End: 08-04-2024 Patient encounter procedure OB/Gynecology Comment on above: Initial OB - LMP 04/26 9 Encounter for superv ision of normal in multigravida (HCC) (Primary Dx); with uncertain dates in first trimester (HCC) Start: 07-31-2024 End: 07-31-2024 ambulatory 07/31/2024 3:30 PM EDT [facility] Hematology/Oncology [address] [place] [address] Valeria Werner MD [address] [place] [address] vv per pt req Hematology/Oncology Comment on above: vv per pt req Start: 07-29-2024 End: 07-29-2024 ambulatory 07/29/2024 1:30 PM EDT [facility] Hematology/Oncology [address] [place] [address] Valeria Werner MD [address] [place] [address] vv per pt req Hematology/Oncology Comment on above: vv per pt req Start: 07-29-2024 End: 07-29-2024 Patient encounter procedure Mammogram Comment on above: Dx: Malignant melano ma of torso excluding breast (HCC) [C43.59] tried to leave vm ab out canceling diagnostic mammogram after verifying with Dr. Lang- full, Requested Diagnostic mammogram orders only if needed, per Dr. Lang. Dx: 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) [C43.59] Start: 07-28-2024 End: 07-28-2024 Patient encounter procedure 07/28/2024 11:00 AM EDT Office Visit [facility] GENER[facility] SURGERY DEPARTMENT [address] [place] [address] [address] [place] [address] Sanjuanita Rodarte MD [address] [place] [address] 3 month FU melanoma and US 07/14 [facility] SURGERY DEPARTMENT Comment on above: 3 month FU melanoma and US 07/14 Start: 07-24-2024 End: 07-24-2024 Patient encounter procedure Cat Scan Comment on above: Malignant melanoma o f skin (HCC) [C43.9] Start: 07-16-2024 End: 07-16-2024 Patient encounter procedure 07/16/2024 10:45 AM EDT Office Visit OB/Gynecology [address] [place] [address] Arin Taylor, KAMLA.OPERATIONS OFFICER [address] [place] [address] Confrim a test. OB/Gynecology Comment on above: Confrim a test. Start: 07-14-2024 End: 07-14-2024 Patient encounter procedure 07/14/2024 4:00 PM EDT Appointment Radiology [address] [place] [address] Dx: 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) [C43.59] Radiology Comment on above: Dx: Malignant melano ma of torso excluding breast (HCC) [C43.59] Start: 07-12-2024 End: 05-14-2025 US Axilla - left US AXILLA ONLY LEFT Radiology Routine 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) Expected: 07/12/2024 (Approximate), Expires: 05/14/2025 [facility] Work Phone: Comment on above: Expected: 07/12/2024 (Approximate), Expires: 05/14/2025 Start: 06-16-2024 End: 06-16-2024 Patient encounter procedure 06/16/2024 4:00 PM EDT Office Visit OB/Gynecology [address] [place] [address] Linda Colon MD [address] [place] [address] IUD insert OB/Gynecology Comment on above: IUD insert Start: 06-01-2024 End: 06-01-2024 Patient encounter procedure 06/01/2024 4:00 PM EDT Office Visit OB/Gynecology [address] [place] [address] Arin Taylor APRN.OPERATIONS OFFICER [address] [place] [address] IUD insert OB/Gynecology Comment on above: IUD insert Start: 05-28-2024 End: 05-28-2024 ambulatory 05/28/2024 3:00 PM EDT [facility] [address] [place] [address] Dmitry Gutiérrez LGC [address] [place] [address] Malignant melanoma of skin (HCC) [C43.9] [facility] Comment on above: Malignant melanoma o f skin (HCC) [C43.9] Start: 05-15-2024 End: 05-15-2024 Patient encounter procedure 05/15/2024 10:00 AM EDT Office Visit OB/Gynecology [address] [place] [address] Lisa Carney, BAG SHAKER.OPERATIONS OFFICER [address] [place] [address] IUD insert OB/Gynecology Comment on above: IUD insert Start: 05-07-2024 End: 05-07-2024 Patient encounter procedure 05/07/2024 9:15 AM EDT Appointment Radiology [address] [place] [address] 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) [C43.59] Radiology Comment on above: Malignant melanoma o f torso excluding breast (HCC) [C43.59] Start: 05-01-2024 End: 05-01-2024 ambulatory 05/01/2024 9:00 AM EST Visit (SP) Office Hematology/Oncology [address] [place] [address] Valeria Werner MD [address] [place] [address] Metastatic Melanoma Hematology/Oncology Comment on above: Metastatic Melanoma Start: 04-23-2024 End: 04-23-2024 Patient encounter procedure 04/23/2024 3:30 PM EST Office Visit OB/Gynecology [address] [place] [address] Lisa Carney, BAG SHAKER.OPERATIONS OFFICER [address] [place] [address] Annual OB/Gynecology Comment on above: Annual Start: 04-23-2024 End: 04-23-2024 Patient encounter procedure Cat Scan Comment on above: Malignant melanoma o f torso excluding breast (HCC) [C43.59] Start: 04-14-2024 End: 04-14-2024 Patient encounter procedure 04/14/2024 10:00 AM EST Office [address] [facility] SURGERY DEPARTMENT 1 [facility] 3rd Floor [place] [phone] Sanjuanita Rdoarte MD [address] [place] [phone] s/p wle melanoma [facility] DEPARTMENT Comment on above: s/p wle melanoma Start: 04-09-2024 End: 07-09-2024 CREATININE BLD CREATININE BLD Lab Routine 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) Expected: 04/09/2024, Expires: 07/09/2024 [facility] Comment on above: Expected: 04/09/2024 , Expires: 07/09/2024 Start: 04-03-2024 End: 04-03-2024 Admission to same day surgery center 04/03/2024 12:30 PM EST - 04/03/2024 2:15 PM EST Surgery [place] [facility] 1 [place] [address] Sanjuanita Rodarte MD [address] [place] [phone] WIDE LOCAL EXCISION OF BACK MELANOMA [facility] Comment on above: WIDE LOCAL EXCISION OF BACK MELANOMA Start: 04-03-2024 End: 04-03-2024 Excision mal lesion trunk/arm/leg 2.1-3.0 cm EXCISION MALIGNANT LESION TRUNK 2.1-3.0CM Malignant melanoma of back (HCC) 04/03/2024 12:30 PM EST [facility] Start: 04-03-2024 End: 04-03-2024 Intraop sentinel lymph node id w/dye injection INTRAOPERATIVE ID OF SENTINEL LYMPH NODE(S) INCL'D INJECTION OF NON-RAD DYE WHEN PERFORMED Malignant melanoma of back (HCC) 04/03/2024 12:30 PM EST [facility] Start: 04-03-2024 Subsequent hospital visit by physician 04/03/2024 12:30 PM EST Hospital Encounter [facility] [address] [place] [address] Sanjuanita Rodarte MD [address] [place] [phone] Malignant melanoma of back (HCC) [C43.59] [facility] Comment on above: Malignant melanoma o f back (HCC) [C43.59] Start: 10-27-2023 Covid-19 Vaccine ( season) Covid-19 Vaccine ( season) [facility] Start: 10-27-2023 Influenza vaccination Influenza Vacc ine (#1) [facility] Start: 05-17-2023 Screening for malign ant neoplasm of cervix [facility] Start: 04-18-2023 End: 07-18-2023 Hepatitis C virus Ab [Presence] in Serum [facility] Work Phone: Comment on above: Expected: 04/18/2023 , Expires: 07/18/2023 Start: 02-25-2023 Depression Assessment Depression Ass essment [facility] Start: 10-26-2022 COVID-19 Vaccine ( season) COVID-19 Vaccine ( season) [facility] Start: 10-26-2022 Influenza vaccination Influenza Vacc ine (#1) [facility] Start: 12-05-2021 Patient encounter procedure [facility] Start: 10-06-2021 FUV, Provider: Azael Hinds II, Status: Pen, Time: 11:15 AM FUV, Provider: Azael Hinds II, Status: Pen, Time: 11:15 AM [id number] Work Phone: Start: 08-24-2021 Influenza vaccination Sequenti al Influenza Vaccine (#1) [facility] Comment on above: Postponed from 10/26 (Treatment Not Available) Start: 05-17-2021 EPV, Provider: Dayan Galindo, Status: Pen, Time: 10:00 AM EPV, Provider: Dayan Galindo, Status: Pen, Time: 10:00 AM [facility] Work Phone: Start: 05-17-2019 History and physical examination, annual for health maintenance Wellness Visit [facility] Start: 02-05-2017 Hepatitis B Vaccine (2 of 3 - 19+ 3-dose series) Hepatitis B Vaccine (2 of 3 - 19+ 3-dose series) [facility] Start: 02-05-2017 Hepatitis B Vaccines (2 of 3 - 19+ 3-dose series) Hepatitis B Vaccines (2 of 3 - 19+ 3-dose series) [facility] Start: 02-05-2017 MMR Vaccines (1 of 1 - Standard series) MMR Vaccines (1 of 1 - Standard series) [facility] Start: 02-05-2017 Varicella vaccination Varicell a Vaccines (2 of 2 - 13+ 2-dose series) [facility] Start: 2013 HPV Vaccine (1 - 3-d ose SCDM series) HPV Vaccine (1 - 3-dose SCDM series) [facility] Start: 01-26-2008 DTaP/Tdap/Td Vaccine s (1 - Tdap) DTaP/Tdap/Td Vaccines (1 - Tdap) [facility] Start: 2007 Screening for malign ant neoplasm of cervix [facility] Start: 2005 Pneumococcal vaccination Pneumococcal Vaccine (1 of 2 - PCV) [facility] Start: 01-26-2004 Anxiety Screening Anxiety Screening [facility] Start: 01-26-2004 Depression Screening Depression Scre ening [facility] Start: 01-26-2004 Hepatitis C screening Hepatitis C Sc reening [facility] Start: 2001 HIV screening HIV Screening [facility] Start: 1998 Depression screening using PHQ-9 (Patient Health Questionnaire 9) score [facility] Start: 01-26-1992 Pneumococcal Vaccine : Ped or At-Risk (1 of 2 - PCV) Pneumococcal Vaccine: Ped or At-Risk (1 of 2 - PCV) [facility] Start: 01-26-1992 Pneumococcal Vaccine : Ped or At-Risk (1 of 2 - PPSV23) Pneumococcal Vaccine: Ped or At-Risk (1 of 2 - PPSV23) [facility] Start: 01-26-1992 Pneumococcal Vaccine : Pediatrics (0 to 5 Years) and At-Risk Patients (6 to 64 Years) (1 of 2 - PCV) Pneumococcal Vaccine: Pediatrics (0 to 5 Years) and At-Risk Patients (6 to 64 Years) (1 of 2 - PCV) [facility] Start: 1991 COVID-19 Vaccine (1) COVID-19 Vaccin e (1) [facility] Start: 1989 History and physical examination, annual for health maintenance Wellness Visit [facility] Start: 1987 MMR Vaccines (1 of 1 - Standard series) MMR Vaccines (1 of 1 - Standard series) [facility] Start: 1987 Varicella vaccination Varicell a Vaccines (1 of 2 - 2-dose childhood series) [facility] Start: 1986 COVID-19 Vaccine (#1) COVID-19 Vacci ne (#1) [facility] Start: 1986 Hepatitis B Vaccines (1 of 3 - 3-dose series) Hepatitis B Vaccines (1 of 3 - 3-dose series) [facility] Start: 1986 HIV screening HIV Screening [facility] Start: 1986 Lipid panel Lipid Panel [facility] Start: 1986 Screening for malign ant neoplasm of cervix Pap Smear [facility] Start: 1986 Yearly Adult Physical Yearly Adult P hysical [facility] Bacteria identified in Urine by Culture BACTERIAL CULTURE, URINE Microbiology Routine Encounter for supervision of high risk in first trimester, antepartum (HCC) 08/04/2024 9:38 AM EDT [facility] Chlamydia trachomatis+Neisseria gonorrhoeae DNA [Presence] in Unspecified specimen by YAS with probe detection GONORRHEA/CHLAMYDIA NAAT Lab Routine Screen for STD (sexually transmitted disease) 04/23/2024 4:21 PM EST [facility] End: 05-07-2025 CT Abdomen and Pelvis W contrast IV CT ABD/PEL W IVCON Radiology Routine 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) 1 Occurrences starting 04/09/2024 until 05/07/2025 [facility] Comment on above: 1 Occurrences starti ng 04/09/2024 until 05/07/2025 End: 05-31-2025 CT Abdomen and Pelvis W contrast IV CT ABD/PEL W IVCON Radiology Routine Malignant melanoma of skin (HCC) Encounter for follow-up surveillance of melanoma 1 Occurrences starting 05/01/2024 until 05/31/2025 [facility] Work Phone: Comment on above: 1 Occurrences starti ng 05/01/2024 until 05/31/2025 End: 05-07-2025 CT Chest W contrast IV CT CHEST W IVCON Radiology Routine 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) 1 Occurrences starting 04/09/2024 until 05/07/2025 [facility] Comment on above: 1 Occurrences starti ng 04/09/2024 until 05/07/2025 End: 05-31-2025 CT Chest W contrast IV CT CHEST W IVCON Radiology Routine Malignant melanoma of skin (HCC) Encounter for follow-up surveillance of melanoma 1 Occurrences starting 05/01/2024 until 05/31/2025 [facility] Comment on above: 1 Occurrences starti ng 05/01/2024 until 05/31/2025 End: 09-09-2023 Extra Urine Cadr Tube Extra Urine Card Tube Lab Timed Once for 1 Occurrences starting 09/09/2023 until 09/09/2023 [facility] Work Phone: Comment on above: Once for 1 Occurrenc es starting 09/09/2023 until 09/09/2023 Insertion intrauteri ne device iud INSERT INTRAUTERINE DEVICE Procedures Routine Encounter for insertion of intrauterine contraceptive device (IUD) Ordered: 04/23/2024 [facility] Work Phone: Comment on above: Ordered: 04/23/2024 End: 05-09-2025 MR Brain WO and W contrast IV MRI BRAIN WO/W IVCON Radiology Routine 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) 1 Occurrences starting 04/09/2024 until 05/09/2025 [facility] Work Phone: Comment on above: 1 Occurrences starti ng 04/09/2024 until 05/09/2025 End: 04-24-2025 NM Lymph node Views NM LYMPH NODE IMAGING Radiology Routine 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) 1 Occurrences starting 03/26/2024 until 04/24/2025 [facility] Work Phone: Comment on above: 1 Occurrences starti ng 03/26/2024 until 04/24/2025 [facility] INVITAE HEREDIT DERRICK DIAGNOSTIC CANCER PANEL [facility] INVITAE HEREDITARY DIAGNOSTIC CANCER PANEL Lab Routine Malignant melanoma of skin (HCC) Family history of melanoma Family history of breast cancer Ordered: 05/28/2024 [facility] Work Phone: Comment on above: Ordered: 05/28/2024 [facility] INVITAE HEREDIT DERRICK DIAGNOSTIC CANCER PANEL [facility] INVITAE HEREDITARY DIAGNOSTIC CANCER PANEL Lab Routine Malignant melanoma of skin (HCC) Family history of breast cancer Family history of melanoma Ordered: 09/21/2024 [facility] Work Phone: Comment on above: Ordered: 09/21/2024 End: 05-01-2025 OBSTETRIC ULTRASOUND WHI OBSTETRIC ULTRASOUND WHI Anc Imaging Routine History of pre-eclampsia Once per month for 5 Occurrences starting 10/13/2024 until 05/01/2025 [facility] Work Phone: Comment on above: Once per month for 5 Occurrences starting 10/13/2024 until 05/01/2025 PAP TEST PAP TEST Lab Dianna thakur Encounter for gynecological examination (general) (routine) without abnormal findings Screening for cervical cancer Encounter for screening for human papillomavirus (HPV) 04/18/2023 4:18 PM [facility] Work Phone: Patient Education Kick Counts ED False Labor OB Triage: Return to Hospital or Notify Physician if you Experience: [facility] Work Phone: TRICHOMONAS VAGINALI S NAAT TRICHOMONAS VAGINALIS NAAT Lab Routine Screen for STD (sexually transmitted disease) 04/23/2024 4:21 PM [facility] End: 09-09-2023 Urinalysis complete W Reflex Culture panel - Urine [facility] Service Area Work Phone: Comment on above: STAT (Lab) for 1 Occ urrences starting 09/09/2023 until 09/09/2023 End: 08-27-2025 US Axilla - left US AXILLA ONLY LEFT Radiology Routine 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) 1 Occurrences starting 07/28/2024 until 08/27/2025 [facility] Work Phone: Comment on above: 1 Occurrences starti ng 07/28/2024 until 08/27/2025 End: 05-14-2025 US Axilla - right US AXILLA ONLY RIGHT Radiology Routine 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) 1 Occurrences starting 04/14/2024 until 05/14/2025 [facility] Comment on above: 1 Occurrences starti ng 04/14/2024 until 05/14/2025 End: 08-27-2025 US Axilla - right US AXILLA ONLY RIGHT Radiology Routine 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) 1 Occurrences starting 07/28/2024 until 08/27/2025 [facility] Comment on above: 1 Occurrences starti ng 07/28/2024 until 08/27/2025 End: 05-24-2025 US Head and neck soft tissue US HEAD/NECK SOFT TISSUE OTHER Radiology Routine 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) 1 Occurrences starting 04/24/2024 until 05/24/2025 [facility] Work Phone: Comment on above: 1 Occurrences starti ng 04/24/2024 until 05/24/2025 US NECK (POC) FOR ASCENCIO RG USE ONLY US NECK (POC) FOR SURG USE ONLY Imaging Diagnostic Routine Malignant melanoma of back (HCC) Ordered: 04/24/2024 [facility] Work Phone: Comment on above: Ordered: 04/24/2024 US NECK (POC) FOR ASCENCIO RG USE ONLY US NECK (POC) FOR SURG USE ONLY Imaging Diagnostic Routine 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) Ordered: 04/24/2024 [facility] Work Phone: Comment on above: [facility]: [facility] Immunization Date Immunization Notes Care Provider Sergei sadler 11-17-2019 Influenza, injectabl e, Madin [place] Canine Kidney, preservative free, quadrivalent Michelle Mckee -[facility] Work Phone: 11-17-2019 influenza virus vaccine, unspecified formulation Lisa Carney APRN.CNP Work Phone: [facility] 03-31-2018 Influenza, injectabl e, Madin Yaneli Canine Kidney, preservative free, quadrivalent Michelle Colby Mckee [facility] Work Phone: 01-08-2017 hepatitis B vaccine, adult dosage Michelle Bowman Rylee [facility] Work Phone: 01-08-2017 varicella virus vaccine Michelle D Gio bose [facility] Work Phone: 11-17-2015 influenza, injectabl e, quadrivalent, contains preservative Lisa Felt [facility] Work Phone: [facility] 10-27-2015 Influenza virus vaccine No P [facility] Physician [facility] 10-11-2015 tetanus toxoid, redu karley diphtheria toxoid, and acellular pertussis vaccine, adsorbed Michelle Mckee [facility] Payers Date Payer Category Payer Self-pay 2023 Medicaid [id number] 2023 Private Health Insurance HUMANA HU[employer]NA MEDICAID [facility] [id number] 2023-Present [address] [address] [place] [address] Medicaid [id number] 2022 Unknown [id number] 2021 Unknown [id number] 2017 Unknown 2015 Medicaid [id number] 1985 Unknown [id number] [id number] 03 1986 Unknown [id number] 2.16.840.1.676286.3.579.2.1 9 1986 Unknown [id number] 2.16.840.1.909488.3.579.2.1 9 1986 Unknown [id number] 2.16.840.1.172729.3.579.2.1 069 1986 Unknown [id number] 2.16.840.1.442123.3.579.2.1 069 1986 Unknown [id number] 2.16.840.1.966491.3.579.2.1 069 1986 Unknown [id number] 2.16.840.1.044899.3.579.2.3 56 1986 Unknown [id number] 2.16.840.1.022630.3.579.2.3 56 1986 Unknown [id number] 2.16.840.1.808132.3.579.2.3 56 1986 Unknown [id number] 2.16.840.1.524381.3.579.2.3 56 1986 Unknown [id number] 2.16.840.1.784958.3.579.2.3 56 1986 Unknown [id number] 2.16.840.1.108971.3.579.2.3 56 1986 Unknown [id number] 2.16.840.1.641705.3.579.2.9 03 1986 Unknown [id number] 2.16.840.1.741237.3.579.2.1 243 1986 Unknown [id number] 2.16.840.1.264075.3.579.2.9 02 Unknown [id number] 2.16.840.1.368644.3.579.2.4 62 Social History Date Type Detail Facility Start: 05-02-2021 End: 03-26-2024 No advance directives No advance directives [facility] Comment on above: social smoker on bryce sheppard; Start: 06-02-2009 End: 03-26-2024 Tobacco smoking status NHIS Smokes tobacco daily [facility] Start: 05-02-2021 End: 07-16-2024 Tobacco use and exposure Smokeless tobacco non-user [facility] Start: 05-02-2021 End: 09-09-2023 Alcohol intake Current drinker of alcohol (finding) [facility] Start: 05-02-2021 History SDOH Alcohol Comment occasional [facility] Start: 1985 Sex Assigned At Not on file [facility] Start: 04-22-2021 End: 09-09-2023 Exposure to SARS-CoV-2 (event) Not sure [facility] Tobacco smoking consumption unknown [facility] Start: 04-18-2023 End: 03-26-2024 Gender identity Not on file [facility] Work Phone: Start: 12-22-2015 End: 02-02-2016 Tobacco smoking status NHIS Ex-smoker [facility] Start: 06-02-2009 End: 06-03-2015 History of tobacco use Current smoker [facility] Start: 06-02-2009 End: 06-03-2015 History of tobacco use Cigarette Smoker [facility] Start: 04-18-2023 End: 08-04-2024 Alcohol intake Ex-drinker (finding) [facility] Start: 01-27-2012 National Score (1-100), lower number is lower risk 80 [facility] Start: 04-18-2023 Alcohol Comment [facility]CCASIONALLY [facility] Start: 05-02-2021 Gender identity Identifies as female gender (finding) [facility] Start: 06-14-2024 [facility] Start: 1985 Sex assigned at Female [facility] Medical Equipment Procedure Code Equipment Code Equipment Origin al Text Equipment Identifier Dates [id number] Slimeline Ez 365 Laser Case [id number] Start: 09-14-2021 Comment on above: Description: Convert ed from [facility]. Please see archived information for full log information. Stent, Polaris Ultra 5fr 24cm, Disposable Case [id number] Start: 09-14-2021 Comment on above: Description: Convert ed from [facility]. Please see archived information for full log information. Goals Date Patient Goal Desired Activity /State Personal health goal Clinical Notes 05-27-2015 to 12-14-2024 Quick Notes - Abad Strong MD - 10/13/2024 11:02 AM EDTPrenatal Quick Notes - Abad Strong MD - 10/13/2024 11:02 AM EDTPatient InstructionsPatient Instructions<item> Note Date & Type Note Facility 12-14-2024 Note HNO ID: [id number] Author: ADRIANE RODRIGUEZ MA Service: ? Author Type: Hot Wort Settler Type: Progress Notes Filed: 12/14/2024 17:29 Note Text: Patient identified by name and date of . Adriane Card presents today for a vaccination of Tdap. Patient denies an allergy to latex: yes Patient denies a severe (life-threatening) allergy to a previous dose of Tdap, DTP, DTaP, DT or Td vaccine. Yes Patient denies history of epilepsy or neurological problems: Yes Patient is afebrile and denies being moderately or severely ill: Yes Patient denies history of Guillain-Holden Syndrome (a severe paralytic illness): Yes Tdap Adacel injection was given without incident. See immunizations for details of immunizations administered today. VIS sheet provided: Yes Provider Lisa Chapman DO was present in office at time of injection. Adriane Rodriguez MA [facility] 12-01-2024 Note HNO ID: [id number] Author: SANJUANITA RODARTE MD Service: ? Author Type: Physician Type: Progress Notes Filed: 12/08/2024 11:50 Note Text: Sanjuanita Rodarte MD Surgical Oncology 1 [facility], [place] [address] VIRTUAL VISIT PROGRESS NOTE This is a virtual visit using Audio Only Visit due to technical issues. It required patient-provider interaction for the medical decision making as documented below. I have communicated my name and active licensure. The patient's identity and physical location were verified at the time of this visit. Either the patient or their legal international sales representative has been informed of the risks and benefits of -- and alternatives to -- treatment through a remote evaluation and consents to proceed with the evaluation remotely. Name: Adriane Card Age: [age] year old Sex: Adriane Card : 1985 Referring Provider: No ref. provider found Subjective CHIEF COMPLAINT: Melanoma surveillance ONCOLOGIC HISTORY: 03/03/24: Melanoma of upper back 04/03/24: WLE + SLNB, path: [id number] Anatomic Location: Upper back Breslow Depth: 1.5mm Ulceration: No Mitosis: 1/mm2 Waldo Lymph Node Biopsy: Yes Number of positive SLN: +1/2 Largest deposit: 0.1mm HISTORY OF PRESENT ILLNESS: Ms. Card is a 39 year old female who presents for follow up for history of melanoma. Adjuvant Immunotherapy: No Number of Adjuvant Immunotherapy Cycles: N/A Recurrence: No Location of Recurrence: N/A I personally reviewed Tobacco Allergies Meds Problems Med Hx Surg Hx Fam Hx Objective OBJECTIVE VIDEO EXAM: (if completed, performed via video enabled technology) No exam performed DATA: Labs: No recent labs Images: US Date of Test: 11/25/2024 IMPRESSION: There are no suspicious sonographic findings in the bilateral axillary regions. Assessment/Plan Ms. Card is a 39 year old female with history of melanoma of upper back, s/p WLE and SLNB, without any evidence of recurrence. -Follow up in 3 months with US given . -Continue skin protection and regular Dermatology skin checks. Cancer Staging 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) Staging form: Melanoma of the Skin, AJCC 8th Edition - Pathologic stage from 04/03/2024: Stage IIIA (pT2a, pN1a, cM0) - Signed by Sanjuanita Rodarte MD on 04/13/2024 I spent a total of 20 minutes on the date of the service which included preparing to see the patient, completing clinical documentation, counseling and educating the patient/family/caregiver, and ordering medications, tests, or procedures Encounter started as a virtual visit (audio-visual) but was converted to a telephone visit (audio only) due to insurmountable technological challenges. Sanjuanita Rodarte MD 12/01/2024 1559 [facility] 11-25-2024 Note HNO ID: [id number] Author: MAYRA ALMANZA RDMS Service: ? Author Type: Contact Center Engineer Type: Progress Notes Filed: 11/26/2024 14:45 Note Text: Radiology Service Progress Note PATIENT NAME: Adriane Card DATE OF SERVICE: November 26, 2024 TIME: 2:45 PM PATIENT IDENTITY VERIFICATION COMPLETED USING TWO (2) IDENTIFIERS: Name and Date of confirmed by patient verbally. FALL SCREENING: Has the patient had 2 falls in the last year or 1 fall with injury or currently using an Ambulatory Assistive Device (Walker, Cane, Wheelchair, Crutches, etc.)? No PATIENT GENDER DATA: Assigned female at . status: : Yes. Urinalysis hCG results are as follows: Positive status: NO. PATIENT RELEVANT IMPLANT DATA REVIEWED: Not Applicable PATIENT PRESENTS WITH AN IMPLANTABLE OR ATTACHED GROUP MANAGER: No RADIOLOGY DEPARTMENT: Ultrasound PERIPHERAL IV DATA: Not applicable SIGNED BY: Mayra Almanza RDMS RVT November 26, 2024 2:[address] [facility] 10-13-2024 Progress note Formatting of t his note might be different from the original. RR- VB No. LOF No. CTXS No. Movement: present. Other c/o: No. Medication list reviewed. SENSITIVE EXAM: Sensitive exam not performed. Physical Exam See Flow Sheet Gen: no accute distress, well appearing A/P 19w2d Estimated Date of Delivery: 03/07/25 ASSESSMENT/PLAN: 1. Encounter for supervision of high risk in second trimester, antepartum (HCC) - ICD9: V23.9, ICD10: O09.92 (primary diagnosis) 2. 19 weeks gestation of (HCC) - ICD9: V22.2, ICD10: Z3A.19 3. Advanced maternal age in multigravida, second trimester (HCC) - ICD9: 659.63, ICD10: O09.522 cont asa refill on pepcid prn heartburn anatomy US nad MFM consult done f/u in 4 weeks or prn Abad Strong MD [facility] 10-13-2024 Miscellaneous Notes RR- VB No. LOF No. CTXS No. Movement: present. Other c/o: No. Medication list reviewed. SENSITIVE EXAM: Sensitive exam not performed. Physical Exam See Flow Sheet Gen: no accute distress, well appearing A/P 19w2d Estimated Date of Delivery: 03/07/25 ASSESSMENT/PLAN: 1. Encounter for supervision of high risk in second trimester, antepartum (HCC) - ICD9: V23.9, ICD10: O09.92 (primary diagnosis) 2. 19 weeks gestation of (HCC) - ICD9: V22.2, ICD10: Z3A.19 3. Advanced maternal age in multigravida, second trimester (HCC) - ICD9: 659.63, ICD10: O09.522 cont asa refill on pepcid prn heartburn anatomy US nad MFM consult done f/u in 4 weeks or prn Abad Strong MD documented in this encounter [facility] 10-13-2024 Instructions Lavern Gan LPN - 10/13/2024 10:53 AM EDT SEQUENTIAL SCREENINGS The [facility] offers sequential screenings for women who are interested in screenings for chromosomal abnormalities and certain defects during a . The sequential screen combines ultrasound and blood tests to determine the risk of chromosomal abnormalities, including Down's Syndrome (Trisomy 21) and Trisomy 18, as well as open neural tube defects including spina bifida. Ultrasound examination is performed between 11 weeks and 13 weeks gestational age. Blood tests are drawn after the ultrasound and again later in the between 15 and 21 weeks gestational age. Please let your physician know if you are interested in this testing. It will require an appointment with our digital field service technician. This is not an ultrasound performed by a physician in our office during a routine visit. SIGNS AND SYMPTOMS OF LABOR 1. Contractions every 10 minutes or more often 2. Clear, pink, or brownish fluid (water) leaking from vagina 3. Feeling that baby is pushing down, pressure 4. Low, dull backache 5. Cramps that feel like a period 6. Cramps with or without diarrhea If you notice any of the above symptoms, contact our office at [phone] and ask to speak with a nurse. After hours, you can call doctors registry at [phone] OR call [facility] at [phone] and ask to have the doctor delivery consultant paged. If you consider this an emergency, dial -[phone] or go to your nearest emergency department. NEED HELP? Are you dealing with a violent or abusive relationship? Are you a victim of rape or sexual assult? Call [facility] ([place]) 24 hour Crisis Hotline: 893.359.8431 or 805-314-9731. MANUAL Your Guide to a Healthy manual is now on-line. Visit [email or web address] ncyGuide to download your free copy documented in this encounter [facility] 10-13-2024 Note HNO ID: [id number] Author: UNIQUE MEJIA MD Service: ? Author Type: Physician Type: Progress Notes Filed: 10/13/2024 10:52 Note Text: MFM Consultation requested by Jen Bowling CNM. I will convey my findings and advice to the requesting provider either through electronic medical record or via [place] postal service. 39 year old at 19 wks and 2 days presents for maternal medicine consultation secondary to history of severe preeclampsia at 34 weeks resulting in an induced vaginal delivery. She had severe range blood pressures with systolics in 180's. She had neurological symptoms as well with headaches and visual changes. Her subsequent pregnancies resulted in full term deliveries. She has been diagnosed with melanoma stage IIIa in late 2023. She had surgery in 02/2024 and has been following with dermatology/oncology with frequent visits. She is scheduled for visits every 3 months. Did not require immunotherapy or chemo. Surgery is considered curative in this case. Past Medical History: PAST MEDICAL HISTORY Diagnosis Date Anemia GERD (gastroesophageal reflux disease) History of pre-eclampsia kidney stones Known medical problems melanoma back Malignant melanoma (HCC) depression Past Surgical History: PAST SURGICAL HISTORY Procedure Laterality Date IUD INSERTION (OUTCOMES MANAGER DEPT)_*FL 01/29/2008 Mirena IUD REMOVAL (OUTCOMES MANAGER DEPT)_*FL 06/28/2008 Mirena KIDNEY STONE SURGERY HX 09/2021 PAST SURGICAL HISTORY OF 2024 skin lesion biopsy, back Past Obstetrical History: Obstetric History T2 L3 SAB2 IAB0 Ectopic0 Multiple0 Live Births3 Name of Baby 1: CRISTAL Date: 07/01/05 GA: 34w0d Type: VAGINAL Apgar1: Not recorded Apgar5: Not recorded Living: Living Name of Baby 2: Not recorded Date: 12/27/06 GA: 6w0d Type: Not recorded Apgar1: Not recorded Apgar5: Not recorded Living: Not recorded Name of Baby 3: richard Date: 11/26/07 GA: 39w0d Type: Vaginal, Spontaneous Apgar1: Not recorded Apgar5: Not recorded Living: Living Name of Baby 4: Not recorded Date: 08/25/14 GA: 4w0d Type: Not recorded Apgar1: Not recorded Apgar5: Not recorded Living: Not recorded Name of Baby 5: Aria Date: 12/23/15 GA: 37w6d Type: Vaginal, Spontaneous Apgar1: 8 Apgar5: 8 Living: Living Name of Baby 6: Not recorded Date: Not recorded GA: Not recorded Type: Not recorded Apgar1: Not recorded Apgar5: Not recorded Living: Not recorded Problem List Noted Noted By Resolved Resolved By Constipation during in second trimester (HCC) 09/14/2024 Jen Bowling APRN.CNM No Overview Signed 09/14/2024 12:01 PM by Jen Bowling APRN.CNM 09/14/24- Taking stool softeners daily with minimal relief. Seen in ED last week and had enema done. Stopped taking Zofran due to constipation. 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 Has upcoming appointment with psychiatrist for evaluation for medication. CHERI score today 18. Jen Bowling APRN.CNM History of delivery 08/04/2024 Jen Bowling APRN.CNM No Overview Addendum 08/04/2024 12:19 PM by Jen Bowling APRN.CNM 08/04/24 - First in 2005 diagnosed with preeclampsia and delivered at 34 weeks gestation. All other deliveries were term deliveries. Order for M consult. Jen Bowling APRN.CNM History of melanoma 08/04/2024 Jen Bowling APRN.CNM No History of pre-eclampsia 08/04/2024 Jen Bowling APRN.CNM No Overview Signed 08/04/2024 12:09 PM by Jen Bowling APRN.CNM 08/04/24- Delivered at 34 weeks gestation due to preeclampsia. Patient was on magnesium sulfate during labor. Jen Bowling APRN.CNM Encounter for supervision of high risk in second trimester, antepartum (HCC) 08/04/2024 Jen Bowling APRN.CNM No Overview Addendum 09/14/2024 12:08 PM by Jen Bowling APRN.CNM Care Checklist Vaccines: [] Flu vaccine [x] declined [] RSV vaccine 32 - 36 08/01 (Oct - Mar) [x] declined [] COVID vaccine [x] declined [] TDaP 27-36 [] declined First trimester: [x] Dating US [x] 1st tri labs [x] Pap smear [] Carrier screening [x] declined [x] NIPT screening [] declined [x] First trimester anatomy scan [] declined [x] universal ASA ordered (start 12w-16w) [] declined [] M Power Consult [x] not indicated [] declined Second trimester: [] Anatomy scan [] Mode of Delivery - [] Feeding - [] Pump ordered [] Diabetes screen [] CBC, RPR [] Behavioral Health Screening Third trimester (28-30 weeks): [] Consent [] Contraception [] Math And Science Division Chair [] TeamBirth handout Third trimester (36-40 weeks): [] GBS [] Presentation - [] Sched (more content not included)... [facility] 10-13-2024 History of Present illness Narrative MFM Consultation requested by Jen Bowling CNM. I will convey my findings and advice to the requesting provider either through electronic medical record or via [place] postal service. 39 year old at 19 wks and 2 days presents for maternal medicine consultation secondary to history of severe preeclampsia at 34 weeks resulting in an induced vaginal delivery. She had severe range blood pressures with systolics in 180's. She had neurological symptoms as well with headaches and visual changes. Her subsequent pregnancies resulted in full term deliveries. She has been diagnosed with melanoma stage IIIa in late 2024. She had surgery in 02/2024 and has been following with dermatology/oncology with frequent visits. She is scheduled for visits every 3 months. Did not require immunotherapy or chemo. Surgery is considered curative in this case. Past Medical History: PAST MEDICAL HISTORY Diagnosis Date Anemia GERD (gastroesophageal reflux disease) History of pre-eclampsia kidney stones Known medical problems melanoma back Malignant melanoma (HCC) depression Past Surgical History: PAST SURGICAL HISTORY Procedure Laterality Date IUD INSERTION (OUTCOMES MANAGER DEPT)_*FL 01/29/2008 Mirena IUD REMOVAL (OUTCOMES MANAGER DEPT)_*FL 06/28/2008 Mirena KIDNEY STONE SURGERY HX 09/2021 PAST SURGICAL HISTORY OF 2024 skin lesion biopsy, back Past Obstetrical History: Obstetric History T2 L3 SAB2 IAB0 Ectopic0 Multiple0 Live Births3 Name of Baby 1: CRISTAL Date: 07/01/05 GA: 34w0d Type: VAGINAL Apgar1: Not recorded Apgar5: Not recorded Living: Living Name of Baby 2: Not recorded Date: 12/27/06 GA: 6w0d Type: Not recorded Apgar1: Not recorded Apgar5: Not recorded Living: Not recorded Name of Baby 3: addyson Date: 11/26/07 GA: 39w0d Type: Vaginal, Spontaneous Apgar1: Not recorded Apgar5: Not recorded Living: Living Name of Baby 4: Not recorded Date: 08/25/14 GA: 4w0d Type: Not recorded Apgar1: Not recorded Apgar5: Not recorded Living: Not recorded Name of Baby 5: Aria Date: 12/23/15 GA: 37w6d Type: Vaginal, Spontaneous Apgar1: 8 Apgar5: 8 Living: Living Name of Baby 6: Not recorded Date: Not recorded GA: Not recorded Type: Not recorded Apgar1: Not recorded Apgar5: Not recorded Living: Not recorded Problem List Noted Noted By Resolved Resolved By Constipation during in second trimester ([facility]) 09/14/2024 Jen Bowling APRN.CNM No Overview Signed 09/14/2024 12:01 PM by Jen Bowling APRN.CNM 09/14/24- Taking stool softeners daily with minimal relief. Seen in ED last week and had enema done. Stopped taking Zofran due to constipation. 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 Has upcoming appointment with psychiatrist for evaluation for medication. CHERI score today 18. Jen Bowling APRN.CNM History of delivery 08/04/2024 Jen Bowling APRN.CNM No Overview Addendum 08/04/2024 12:19 PM by Jen Bowling APRN.CNM 08/04/24 - First in 2005 diagnosed with preeclampsia and delivered at 34 weeks gestation. All other deliveries were term deliveries. Order for M consult. Jen Bowling APRN.CNM History of melanoma 08/04/2024 Jen Bowling APRN.CNM No History of pre-eclampsia 08/04/2024 Jen Bowling APRN.CNM No Overview Signed 08/04/2024 12:09 PM by Jen Bowling APRN.CNM 08/04/24- Delivered at 34 weeks gestation due to preeclampsia. Patient was on magnesium sulfate during labor. Jen Bowling APRN.CNM Encounter for supervision of high risk in second trimester, antepartum (HCC) 08/04/2024 Jen Bowling APRN.CNM No Overview Addendum 09/14/2024 12:08 PM by Jen Bowling APRN.CNM Care Checklist Vaccines: [] Flu vaccine [x] declined [] RSV vaccine 32 0/7 - 36 6/ (Oct - Mar) [x] declined [] COVID vaccine [x] declined [] TDaP 27-36 [] declined First trimester: [x] Dating US [x] 1st tri labs [x] Pap smear [] Carrier screening [x] declined [x] NIPT screening [] declined [x] First trimester anatomy scan [] declined [x] universal ASA ordered (start 12w-16w) [] declined [] M Power Consult [x] not indicated [] declined Second trimester: [] Anatomy scan [] Mode of Delivery - [] Feeding - [] Pump ordered [] Diabetes screen [] CBC, RPR [] Behavioral Health Screening Third trimester (28-30 weeks): [] Consent [] Contraception [] Math And Science Division Chair [] TeamBirth handout Third trimester (36-40 weeks): [] GBS [] Presentation - [] Scheduled [] yes - Hibiclens, pre-op instructions, CBC, T&S ordered [] no [] H&P [] Preferences worksheet [] Scanned in EMR [] Patient to bring copy to hospital [] Declined Multigravida of advanced maternal age in first trimester ([facility]) 08/04/2024 Jen Bowling APRN.CNM No Overview Signed 08/04/2024 12:25 PM by Jen Bowling APRN.CNM 08/04/24- Patient will be age 40 at the time of delivery. Accepts NIPT screening after 10 weeks gestation. Jen Bowling APRN.CNM Heartburn during in first trimester ([facility]) 08/04/2024 Jen Bowling APRN.CNM No Overview Signed 08/04/2024 4:44 PM by Jen Bowling APRN.CNM Pepcid 20 mg PO -RX sent. 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 Patient had removal of lymph nodes. No chemo/radiation. Continues to have exams every 6 months with oncology. Jen Bowling APRN.CNM History of toxemia of 05/19/2015 Jason Marquez, RN No Overview Signed 05/19/2015 11:11 AM by Jason Marquez (Rn) 05/19/2015Pt has a history of toxemia with her first and she was transferred to [facility] and was induced at 34 weeks.No problems with last . TKRN History of depression 05/19/2015 Jason Marquez RN No Overview Signed 05/19/2015 11:13 AM by Jason Marquez (Rn) 05/19/2015Pt has a history of depression never diagnosed by a doctor. She has never been on medication to treat the depression. She said the depression symptoms. TKRN Tattoo 05/19/2015 Jason Marquez RN No Overview Signed 05/19/2015 11:14 AM by Jason Marquez (Rn) Pt requests Hepatitis C testing @ [facility]. TKRN GERD (gastroesophageal reflux disease) 07/19/2009 Melodie Vizcarra No Encounter for supervision of normal in multigravida in first trimester ([facility]) 05/27/2015 Linda Grimes 05/10/2017 Lisa Carney APRN.OPERATIONS OFFICER Two previous miscarriages, affecting care of mother in second trimester, antepartum ([facility]) 05/19/2015 Jason Marquez RN 05/10/2017 Overview Signed 05/19/2015 11:10 AM by Jason Marquez (Rn) 05/19/2015 Pt has a history of 2 miscarriages. She denies any bleeding. Notes occasional mild cramping that she believes is round ligament pain. Pt to call/come in of she develops any bleeding, pain worsens or PRN problems. TKRN Tobacco smoking complicating in first trimester ([facility]) 05/19/2015 Jason Marquez RN 05/10/2017 Overview Addendum 10/11/2015 10:18 AM by Jennyfer Mota CNP Quit smoking MH 05/19/2015 Pt smokes 4-5 cigarettes a day, down from 1/2 ppd. Discussed risks of smoking during . Advised pt to quit.TKRN Patient requested diagnostic testing 05/19/2015 Jason Marquez RN 05/10/2017 Overview Signed 05/19/2015 11:14 AM by Jason Marquez (Rn) 05/19/2015 Pt requests nuchal ultrasound. TKRN Anemia, unspecified 10/01/2007 Anthony Stevenson MD 07/19/2009 Melodie Vizcarra Abdominal pain, generalized 10/01/2007 Anthony Stevenson MD 07/19/2009 Melodie Vizcarra Threatened premature labor, antepartum(644.03) 09/03/2007 Anthony Stevenson MD 11/11/2007 Anthony Stevenson MD Supervision of other normal 06/30/2007 Anthony Stevenson MD 07/19/2009 Melodie Vizcarra Social History: SOCIAL HISTORY[1] Medications: Current Outpatient Medications on File Prior to Visit Medication Sig sertraline (ZOLOFT) 50 mg tablet Take 50 mg by mouth once daily. BANOPHEN 25 mg capsule Take 25 mg by mouth at bedtime as needed. ondansetron (ZOFRAN) 4 mg tablet Take 1 tablet by mouth every 8 hours as needed. aspirin, enteric coated (ECOTRIN LOW STRENGTH) 81 mg EC tablet Take 1 tablet by mouth once daily. famotidine (PEPCID) 20 mg tablet Take 1 tablet by mouth two times a day. PNV no.95/ferrous fum/folic ac ( ORAL) Take by mouth. No current facility-administered medications on file prior to visit. Allergies: ALLERGIES No Known Allergies Family History: FAMILY HISTORY Adopted: Yes Problem Relation Age of Onset Breast Cancer Maternal Grandmother 75 Melanoma Maternal Grandmother one on nose Diabetes Maternal Grandfather Heart Maternal Grandfather AK- Assessment: 39 year old at 19 wks and 2 days presents for maternal medicine consultation secondary to history of severe preeclampsia and stage IIIa melanoma. Plan: History of severe preeclampsia at 34 weeks in 2005 Women with a clinical diagnosis of preeclampsia have increased risk for hypertensive disorders in subsequent pregnancies. The chances of recurrence decrease as the likelihood of true preeclampsia increases. If the condition does recur, it will usually not be worse, and if preeclampsia truly arose de maria e, it probably will be less severe in subsequent pregnancies. Some women, however, are normotensive between pregnancies but have recurrent preeclampsia. The risk of such recurrence is increased when preeclampsia occurs in the late second or early third trimester. The recurrence of severe preeclampsia or eclampsia in one predicts its likely recurrence in subsequent pregnancies. In patients who had a diagnosis of preeclampsia with their first , the risk of recurrence of preeclampsia with subsequent is 11%. In a study of primiparas with severe preeclampsia, the recurrence rate was 45% . Because the diagnosis in these studies was based solely on clinical findings, these groups probably included patients with unrecognized preexisting blood pressure elevation or underlying renal or cardiovascular disease. I advised the patient regarding the signs and symptoms of severe preeclampsia. We discussed the recommendation for delivery with magnesium for seizure prophylaxis if preeclampsia with severe features is diagnosed. We discussed that the diagnosis of severe preeclampsia in the patient usually requires delivery unless the patient meets certain diagnostic criteria for conservative management. I recommend initiating baby ASA in the late first trimester to reduce the risk of recurrence. Recommend initiating serial growth scans every 4 weeks starting at 28 weeks secondary to history of preeclampsia with previous . Melanoma in Malignant melanoma occurs accounts for 8% of all gestational malignant tumors. Concerns regarding the possible relationship between melanoma and arose from early reports of poor outcome of melanoma in women. Melanoma occurring during may be more advanced and is more likely located in sites associated with poorer prognosis. Head, neck, and truncal lesions occurred in 43% of patients, compared with 38% of non controls, but other reports found no increase in poor prognostic locations in . has been associated with increased tumor thickness in some reports. There may be a hormonal induction of proliferation of the cancerous melanoma cells in , but no specific -related hormone has been identified. The effect of on tumor site and thickness remains unclear. Historically, melanoma in has been associated with a poorer prognosis, with several controlled studies reporting a decrease in survival rates compared with those for non women. However, when matched for site and stage, no significant difference in survival is observed. Natasha and coworkers reported the only study showing a difference in survival rate despite matching by age, tumor site, and stage. At 10 years of follow-up, there was a statistically different survival rate of 26% for the group and 43% for the non group in this study. Other studies have not observed any significant differences in survival rates in women, but some report a shorter disease-free survival for women, perhaps because of the shorter follow-up period in these studies. Three large, case-control studies of the prognosis of melanoma diagnosed during did not show any difference in survival. O'Akhil and colleagues used the records from the [place] [facility] Registry between 1990 and 1998 and reported no difference in survival between 303 patients with -associated melanoma and 1799 age-matched non controls. Surgery is the only effective cure for melanoma. Recommendations should be based on the same prognostic factors established for a non patient. In a woman diagnosed with early-stage melanoma, there is no reason to delay surgery. Chemotherapy does not offer sufficient benefit to the mother to warrant risk to the fetus. In women presenting with metastatic disease, the decision regarding termination of and initiating systemic therapy should be individualized according to the prognosis and the patient's wishes. Although melanoma is not the most common malignancy manifesting in , it is the most common cancer to metastasize to the placenta. With placental involvement, risk of melanoma metastasis is approximately 22%. Neonates delivered with concomitant placental involvement should be considered a high-risk population. Given the risk of metastasis to the fetus, we recommend that the placentas of all women with suspected metastatic melanoma during should be closely evaluated by gross and microscopic examination. Immunohistochemical staining for melanoma antigens should be performed on histologic sections, using S-100, HMB-45, or other appropriate markers. Research tests that may be of value include examination of cord blood buffy coat for the presence of tumor cells using immunohistochemical staining or reverse transcriptase polymerase chain reaction. Research evaluation to establish the maternal origin of the tumor (including karyotyping, cytogenetics, and HLA typing of the mother, , and tumors) may also be useful. If the does not present with metastases at , we would recommend periodic evaluation for development of melanoma for at least 24 months coinciding with routine well-child checks. Evaluation should include a baseline chest x-ray and liver enzymes, including lactate dehydrogenase, which may be repeated every 6 months. Other studies may be included on the basis of clinical suspicion. Because of its rarity, studies regarding melanoma treatment are lacking in infants. The use of adjuvant high-dose interferon valentina therapy has not been reported. A low incidence of irreversible spastic diplegia (0% to 11.5%) has been observed with low-dose interferon valentina in infants, and the risk of this complication may be increased in neonates. At this point, there is insufficient information to make a definitive recommendation about adjuvant therapy for infants at risk for maternal melanoma metastases. Further information can be found in the following article: Journal of Clinical Oncology, Vol 21, Issue 11 (July), 2002: 0165-0550 Metastatic Melanoma in : Risk of Transplacental Metastases in the May Cathie Julian Douglas Grossman, [place], Mohsen Blackburn, Pierre Parks [place], Catalino Davenport To be clear, this patient was not diagnosed with metastatic melanoma, but if she happens to have a metastatic recurrence during , the above information may apply. Recommend continued surveillance with dermatology and oncology during the course of this . Unique Mejia MD I spent a total of 40 minutes on the date of the service which included preparing to see the patient, [id number] patient care, completing clinical documentation, obtaining and/or reviewing separately obtained history, counseling and educating the patient/family/caregiver, ordering medications, tests, or procedures, communicating with other HCPs (not separately reported), independently interpreting results (not separately reported), and communicating results to the patient/family/caregiver. [1] Social History Tobacco Use Smoking status: Former Current packs/day: 0.50 Average packs/day: 0.5 packs/day for 0.6 years (0.3 ttl pk-yrs) Types: Cigarettes Start date: 06/02/2009 Quit date: 06/03/2015 Smokeless tobacco: Never Vaping Use Vaping status: Never Used Substance Use Topics Alcohol use: Not Currently Comment: OCCASIONALLY Drug use: Never documented in this encounter [facility] 10-05-2024 Telephone encounter Note Received call from [employer] regarding PA for genetic testing. Confirmed patient's name and , note that patient's last name on genetic testing/PA is Bailey. [employer] explained that they were calling in reference to the patient's genetic testing. Deisy stated that they were unable to process the patient's PA as a privious PA had been submitted and denied in May 2024. Deisy stated that the denial could be appealed, denial number [id number]. Reason for denial was listed as no medical necessity. Informed Deisy that I would update the ordering provider. Esperanza Sanabria Genetic Counselor Library Aide [facility] 10-05-2024 Miscellaneous Notes Received call from [employer] regarding PA for genetic testing. Confirmed patient's name and , note that patient's last name on genetic testing/PA is Starkey. [employer] explained that they were calling in reference to the patient's genetic testing. Allial[employer]to stated that they were unable to process the patient's PA as a privious PA had been submitted and denied in May 2024. Deisy stated that the denial could be appealed, denial number [id number]. Reason for denial was listed as no medical necessity. Informed Deisy that I would update the ordering provider. Esperanza Sanabria Genetic Counselor Library Aide documented in this encounter [facility] 09-21-2024 Telephone encounter Note Tried to call to explain the following: I periodically check to make sure my previous genetic test orders have gone through. When I checked for this patient, I could not find their order in [employer]'s portal. [employer] also could not find their order, and our [employer] team was unable to see what happened since our interface messages only go back 3 months. Therefore, Ramya Rinaldi placed a new order for testing and I sent a message to the patient via [employer] to inform her of this technical error. Shortly after I sent the [employer] message, Ramya found that the patient was showing up with multiple RQ numbers in [employer]'s portal and we came to the conclusion that I had been searching for the order using the patient's current last name, but when I had placed the original genetic testing order, the patient's last name was different. I tried to call the patient to let them know this and ask if they still wanted to proceed with genetic testing or not. I will send a [employer] message to follow up instead since she was unavailable and I was unable to leave a voicemail since her mailbox was full. Dmitry Gutiérrez [facility] Work Phone: 09-21-2024 Miscellaneous Notes Tried to call to explain the following: I periodically check to make sure my previous genetic test orders have gone through. When I checked for this patient, I could not find their order in [employer]'s portal. [employer] also could not find their order, and our [employer] team was unable to see what happened since our interface messages only go back 3 months. Therefore, Ramya Franklyn placed a new order for testing and I sent a message to the patient via [employer] to inform her of this technical error. Shortly after I sent the [employer] message, Ramya found that the patient was showing up with multiple RQ numbers in [employer]'s portal and we came to the conclusion that I had been searching for the order using the patient's current last name, but when I had placed the original genetic testing order, the patient's last name was different. I tried to call the patient to let them know this and ask if they still wanted to proceed with genetic testing or not. I will send a [employer] message to follow up instead since she was unavailable and I was unable to leave a voicemail since her mailbox was full. Dmitry Gutiérrez documented in this encounter [facility] 09-21-2024 Note HNO ID: [id number] Author: RAMYA RINALDI MS Service: ? Author Type: Genetic Counselor Type: Progress Notes Filed: 09/21/2024 12:36 Note Text: After discussing with original ordering genetic counselor, Dmitry Gutiérrez MS, placing new genetic testing order for patient. Original order never got correctly integrated with [employer], so saliva sample never got sent. Ramya Rinaldi MS, [facility] Licensed, Certified Genetic Counselor [facility] 09-21-2024 History of Present illness Narrative After discussing with original ordering genetic counselor, Dmitry Gutiérrez MS, placing new genetic testing order for patient. Original order never got correctly integrated with [employer], so saliva sample never got sent. Ramya Rinaldi MS, [facility] Licensed, Certified Genetic Counselor documented in this encounter [facility] 09-14-2024 Progress note Formatting of t his note might be different from the original. S: Adriane Card is a 39 year old female who presents at 15 weeks gestation for a routine visit. No movement to date. Increased anxiety over not feeling movement. Has anterior placenta. Denies headache, visual changes, chest pain, shortness of breath, vaginal bleeding, leakage of fluid, or dysuria. Seen in ED last week for constipation. Got enema. Stopped taking Zofran PO and is taking stool softeners daily. O: See flow sheet Gen: No apparent distress Abd: Gravid, nontender ASSESSMENT/PLAN: 1. 15 weeks gestation of 2. CHERI (generalized anxiety disorder) 3. Multigravida of advanced maternal age in second trimester 4. Encounter for supervision of high risk in second trimester, antepartum 5. Constipation in - Continue stool softeners daily - Continue vitamin and ASA - Continue Zoloft 50 mg PO daily- counseling? - In process of getting insurance switched from [employer] in order to deliver at [facility] 4 weeks for anatomy US and MFM consult Jen Bowling APRN.CNM [facility] 09-14-2024 Miscellaneous Notes S: Adriane Card is a 39 year old female who presents at 15 weeks gestation for a routine visit. No movement to date. Increased anxiety over not feeling movement. Has anterior placenta. Denies headache, visual changes, chest pain, shortness of breath, vaginal bleeding, leakage of fluid, or dysuria. Seen in ED last week for constipation. Got enema. Stopped taking Zofran PO and is taking stool softeners daily. O: See flow sheet Gen: No apparent distress Abd: Gravid, nontender ASSESSMENT/PLAN: 1. 15 weeks gestation of 2. CHERI (generalized anxiety disorder) 3. Multigravida of advanced maternal age in second trimester 4. Encounter for supervision of high risk in second trimester, antepartum 5. Constipation in - Continue stool softeners daily - Continue vitamin and ASA - Continue Zoloft 50 mg PO daily- counseling? - In process of getting insurance switched from [employer] in order to deliver at [facility] 4 weeks for anatomy US and MFM consult Jen Bowling APRN.CNM documented in this encounter [facility] 09-14-2024 Instructions Raffy Kate LPN - 09/14/2024 9:21 AM EDT SEQUENTIAL SCREENINGS The [facility] offers sequential screenings for women who are interested in screenings for chromosomal abnormalities and certain defects during a . The sequential screen combines ultrasound and blood tests to determine the risk of chromosomal abnormalities, including Down's Syndrome (Trisomy 21) and Trisomy 18, as well as open neural tube defects including spina bifida. Ultrasound examination is performed between 11 weeks and 13 weeks gestational age. Blood tests are drawn after the ultrasound and again later in the between 15 and 21 weeks gestational age. Please let your physician know if you are interested in this testing. It will require an appointment with our digital field service technician. This is not an ultrasound performed by a physician in our office during a routine visit. SIGNS AND SYMPTOMS OF LABOR 1. Contractions every 10 minutes or more often 2. Clear, pink, or brownish fluid (water) leaking from vagina 3. Feeling that baby is pushing down, pressure 4. Low, dull backache 5. Cramps that feel like a period 6. Cramps with or without diarrhea If you notice any of the above symptoms, contact our office at [phone] and ask to speak with a nurse. After hours, you can call doctors registry at [phone] OR call [facility] at [phone] and ask to have the doctor delivery consultant paged. If you consider this an emergency, dial 7-1-2 or go to your nearest emergency department. NEED HELP? Are you dealing with a violent or abusive relationship? Are you a victim of rape or sexual assult? Call [facility] ([facility] 24 hour Crisis Hotline: 614.518.4704 or 485-849-8341. MANUAL Your Guide to a Healthy manual is now on-line. Visit [email or web address] ncyGuide to download your free copy documented in this encounter [facility] 08-26-2024 Progress note Formatting of t his note might be different from the original. Anatomy ultrasound reviewed. No abnormalities identified. Follow up as clinically indicated. Please place copy in ob chart. Abad Strong MD [facility] Work Phone: 08-26-2024 Miscellaneous Notes Anatomy ultrasound reviewed. No abnormalities identified. Follow up as clinically indicated. Please place copy in ob chart. Abad Strong MD documented in this encounter [facility] 08-26-2024 Progress note Formatting of t his note might be different from the original. S: Adriane Card is a 39 year old female who presents at 12 weeks gestation for a routine visit. Just completed 1st trimester ultrasound. Has already completed labs and NIPT. Still struggling with daily nausea and some emesis. Taking Pepcid for acid reflux. Seen by counselor and discussed starting on medication for anxiety. Was given Benadryl (something equivalent) but this is not helping yet. Planning on discussing other medications at next visit in 2 weeks. Denies headache, visual changes, chest pain, shortness of breath, vaginal bleeding, leakage of fluid, or dysuria. Feeling well, no complaints. O: See flow sheet Gen: No apparent distress Abd: Gravid, nontender ASSESSMENT/PLAN: 1. 12 weeks gestation of 2. History of delivery 3. History of pre-eclampsia 4. Nausea/vomiting in - Insurance is [employer]- patient notified that [facility] does not take insurance and she will call and attempt to change plan - Continue vitamin and ASA - Labs completed - Start Zofran 4 mg PO PRN for nausea - RTO 4 weeks or sooner if needed Jen Bowling APRN.CNM [facility] 08-26-2024 Miscellaneous Notes S: Adriane Card is a 39 year old female who presents at 12 weeks gestation for a routine visit. Just completed 1st trimester ultrasound. Has already completed labs and NIPT. Still struggling with daily nausea and some emesis. Taking Pepcid for acid reflux. Seen by counselor and discussed starting on medication for anxiety. Was given Benadryl (something equivalent) but this is not helping yet. Planning on discussing other medications at next visit in 2 weeks. Denies headache, visual changes, chest pain, shortness of breath, vaginal bleeding, leakage of fluid, or dysuria. Feeling well, no complaints. O: See flow sheet Gen: No apparent distress Abd: Gravid, nontender ASSESSMENT/PLAN: 1. 12 weeks gestation of 2. History of delivery 3. History of pre-eclampsia 4. Nausea/vomiting in - Insurance is [employer]- patient notified that [facility] does not take insurance and she will call and attempt to change plan - Continue vitamin and ASA - Labs completed - Start Zofran 4 mg PO PRN for nausea - RTO 4 weeks or sooner if needed Jen Bowling APRN.CNM documented in this encounter [facility] 08-26-2024 Instructions Lavern Gan LPN - 08/26/2024 9:59 AM EDT SEQUENTIAL SCREENINGS The [facility] offers sequential screenings for women who are interested in screenings for chromosomal abnormalities and certain defects during a . The sequential screen combines ultrasound and blood tests to determine the risk of chromosomal abnormalities, including Down's Syndrome (Trisomy 21) and Trisomy 18, as well as open neural tube defects including spina bifida. Ultrasound examination is performed between 11 weeks and 13 weeks gestational age. Blood tests are drawn after the ultrasound and again later in the between 15 and 21 weeks gestational age. Please let your physician know if you are interested in this testing. It will require an appointment with our digital field service technician. This is not an ultrasound performed by a physician in our office during a routine visit. SIGNS AND SYMPTOMS OF LABOR 1. Contractions every 10 minutes or more often 2. Clear, pink, or brownish fluid (water) leaking from vagina 3. Feeling that baby is pushing down, pressure 4. Low, dull backache 5. Cramps that feel like a period 6. Cramps with or without diarrhea If you notice any of the above symptoms, contact our office at [phone] and ask to speak with a nurse. After hours, you can call doctors registry at [phone] OR call [facility] at [phone] and ask to have the doctor delivery consultant paged. If you consider this an emergency, dial [phone]- or go to your nearest emergency department. NEED HELP? Are you dealing with a violent or abusive relationship? Are you a victim of rape or sexual assult? Call [facility] ([place]) 24 hour Crisis Hotline: 150.182.6629 or 232-425-9033. MANUAL Your Guide to a Healthy manual is now on-line. Visit [email or web address] ncyGuide to download your free copy documented in this encounter [facility] 08-06-2024 Telephone encounter Note 1st risk assessment form submitted 08/06/2024. Lexi Veloz RN [facility] 08-06-2024 Miscellaneous Notes 1st risk assessment form submitted 08/06/2024. Lexi Veloz RN documented in this encounter [facility] 08-05-2024 Note HNO ID: [id number] Author: MAYRA ALMANZA RDMS Service: ? Author Type: Contact Center Engineer Type: Progress Notes Filed: 08/06/2024 15:46 Note Text: Radiology Service Progress Note PATIENT NAME: Adriane Card DATE OF SERVICE: August 06, 2024 TIME: 3:45 PM PATIENT IDENTITY VERIFICATION COMPLETED USING TWO (2) IDENTIFIERS: Name and Date of confirmed by patient verbally. FALL SCREENING: Has the patient had 2 falls in the last year or 1 fall with injury or currently using an Ambulatory Assistive Device (Walker, Cane, Wheelchair, Crutches, etc.)? No PATIENT GENDER DATA: Assigned female at . status: : Yes. Urinalysis hCG results are as follows: Positive Radiologist notified: Dr. Lang status: NO. PATIENT RELEVANT IMPLANT DATA REVIEWED: Not Applicable PATIENT PRESENTS WITH AN IMPLANTABLE OR ATTACHED GROUP MANAGER: No RADIOLOGY DEPARTMENT: Ultrasound PERIPHERAL IV DATA: Not applicable SIGNED BY: Mayra Almanza RDMS RVT August 06, 2024 3:[address] [facility] 08-04-2024 Note Addended by: JEN BOWLING on: 08/04/2024 04:44 PM Modules accepted: Orders [facility] 08-04-2024 Note Addended by: JEN BOWLING on: 08/04/2024 04:44 PM Modules accepted: Orders [facility] 08-04-2024 Miscellaneous Notes Addended by: JEN BOWLING on: 08/04/2024 04:44 PM Modules accepted: Orders Addended by: JEN BOWLING on: 08/04/2024 04:44 PM Modules accepted: Orders at 9.2 weeks gestation here for NOB. See progress note. Jen Bowling APRN.CNM documented in this encounter [facility] 08-04-2024 Progress note Formatting of t his note might be different from the original. at 9.2 weeks gestation here for NOB. See progress note. Jen Bowling APRN.CNM [facility] 08-03-2024 Note HNO ID: [id number] Author: JEN BOWLING APRN.CNM Service: ? Author Type: Ultrasound Specialist Type: Progress Notes Filed: 08/04/2024 12:32 Note Text: INITIAL OB ASSESSMENT HPI: Adriane is a 39 year old White here to establish Obstetrical Care. Patient's last menstrual period was 05/23/2024 (exact date). from OB Dating Form. was unplanned but accepted Complaints: nausea in the evening OB History Gravida6 Para3 Term2 Preterm1 AB2 Living3 SAB2 IAB0 Ectopic0 Multiple0 Live Births3 Previous history: Prior : never History of 4th degree laceration: No History of shoulder dystocia: No History of Hypertensive disorders including pre-eclampsia or gestational hypertension: Yes History of gestational diabetes: No Patient's Risk Screening for delivery: Have you had a prior reddy between 20w and 36w6d? Yes Did you present in active spontaneous labor or have ruptured membranes, or advanced cervical dilation (greater than or equal to 4 cm) or effacement? No How many pregnancies have you had before? 4 Did you have a previous baby with a GBS Infection? No Please select all that apply for any prior : N/A MEDICAL/PSYCHOSOCIAL HISTORY: History of hemorrhage or bleeding concerns: No Thyroid Disease: No History of chronic hypertension: No History of pre-existing diabetes: No ABO/RH(D) Date Value Ref Range Status 06/24/2015 A POSITIVE Final BMI 21.47 kg/(m2) Last Pap: 04/30/2023 History of abnormal pap: No Prior treatment for cervical dysplasia: none. Last HPV: 04/30/2023 History of STDs: None Partner History of STDs: None Did you have a partner with Herpes? No Tobacco use: No E-Cigarette/Vaping Use: No Caffeine use: Yes - 1 cup of coffee int he morning Drug use: No Alcohol use: No Multivitamin with Folic acid: Yes Would refuse blood transfusion if medically necessary: No Social Needs: How often does this describe you? I don't have enough money to pay my bills: Sometimes Within the past 12 months, have you worried that your food would run out before you had money to buy more? Often - has a WIC appointment 08/05/2024 In the past 12 months, has lack of reliable transportation kept you from going to medical appointments or work, or from getting things needed for daily living? Never In the past 12 months, have you had any concerns about having a place to live, or about the condition or quality of your housing? Never Would you like more information on any of the following (please check all that apply)? Not interested Social History: Do you have any history of depression, anxiety, PTSD, or other mood problems? Yes Do you have a history of abuse or trauma that may impact your experience? No Are you currently employed? Yes Depression/Anxiety Screening: denies, admits to symptoms of depression. OB Depression and Anxiety Screening- This Encounter Feeling down, depressed, or hopeless: Not at all Little interest or pleasure in doing things: Not at all Feeling nervous, anxious, or on edge More than half the days Not being able to stop or control worrying Several days Anxiety Pre-Screening Total (If >/= 3 additional questions will be reviewed) 3 Worrying too much about different things Nearly Everyday Trouble relaxing Nearly Everyday Being so restless that it is hard to sit still Nearly Everyday Becoming easily annoyed or irritable Nearly Everyday Feeling afraid, as if something awful might happen Nearly Everyday How difficult to do work, care for home, get along with people Somewhat difficult CHERI-7 Score 18 Genetic Screening: Partner present: No Patient verbalized knowledge of partner family health history: No Do you or your partner have any personal or family history of defects not previously discussed: No Do you have history of a complicated by anomaly, genetic condition, or demise: No Preeclampsia Risk Screening: Screening for prevention of preeclampsia: High risk factors: History of pre-eclampsia, especially when accompanied by an adverse outcome Moderate risk ractors: Age 35 years or older OB Risk Screening: Completed, positive findings include: Patient answered 'Yes' they had a prior reddy between 20w and 36w6d. Marital Status:Single Partner: Name: Jace Ramsey Age: 31 Occupation: [employer] Gender: Male PAST MEDICAL HISTORY Diagnosis Date Anemia GERD (gastroesophageal reflux disease) History of pre-eclampsia kidney stones Known medical problems melanoma back Malignant melanoma (HCC) depression PAST SURGICAL HISTORY Procedure Laterality Date IUD INSERTION (OUTCOMES MANAGER DEPT)_*FL 01/29/2008 Mirena IUD REMOVAL (OUTCOMES MANAGER DEPT)_*FL 06/28/2008 Mirena KIDNEY STONE SURGERY HX 09/2021 PAST SURGICAL HISTORY OF 2024 skin lesion biopsy, back Current Outpatient Medications (more content not included)... [facility] 08-03-2024 History of Present illness Narrative INITIAL OB ASSESSMENT HPI: Adriane is a 39 year old White here to establish Obstetrical Care. Patient's last menstrual period was 05/23/2024 (exact date). from OB Dating Form. was unplanned but accepted Complaints: nausea in the evening OB History Gravida6 Para3 Term2 Preterm1 AB2 Living3 SAB2 IAB0 Ectopic0 Multiple0 Live Births3 Previous history: Prior : never History of 4th degree laceration: No History of shoulder dystocia: No History of Hypertensive disorders including pre-eclampsia or gestational hypertension: Yes History of gestational diabetes: No Patient's Risk Screening for delivery: Have you had a prior reddy between 20w and 36w6d? Yes Did you present in active spontaneous labor or have ruptured membranes, or advanced cervical dilation (greater than or equal to 4 cm) or effacement? No How many pregnancies have you had before? 4 Did you have a previous baby with a GBS Infection? No Please select all that apply for any prior : N/A MEDICAL/PSYCHOSOCIAL HISTORY: History of hemorrhage or bleeding concerns: No Thyroid Disease: No History of chronic hypertension: No History of pre-existing diabetes: No ABO/RH(D) Date Value Ref Range Status 06/24/2015 A POSITIVE Final BMI 21.47 kg/(m^2) Last Pap: 04/30/2023 History of abnormal pap: No Prior treatment for cervical dysplasia: none. Last HPV: 04/30/2023 History of STDs: None Partner History of STDs: None Did you have a partner with Herpes? No Tobacco use: No E-Cigarette/Vaping Use: No Caffeine use: Yes - 1 cup of coffee int he morning Drug use: No Alcohol use: No Multivitamin with Folic acid: Yes Would refuse blood transfusion if medically necessary: No Social Needs: How often does this describe you? I don't have enough money to pay my bills: Sometimes Within the past 12 months, have you worried that your food would run out before you had money to buy more? Often - has a WIC appointment 08/05/2024 In the past 12 months, has lack of reliable transportation kept you from going to medical appointments or work, or from getting things needed for daily living? Never In the past 12 months, have you had any concerns about having a place to live, or about the condition or quality of your housing? Never Would you like more information on any of the following (please check all that apply)? Not interested Social History: Do you have any history of depression, anxiety, PTSD, or other mood problems? Yes Do you have a history of abuse or trauma that may impact your experience? No Are you currently employed? Yes Depression/Anxiety Screening: denies, admits to symptoms of depression. OB Depression and Anxiety Screening- This Encounter Feeling down, depressed, or hopeless: Not at all Little interest or pleasure in doing things: Not at all Feeling nervous, anxious, or on edge More than half the days Not being able to stop or control worrying Several days Anxiety Pre-Screening Total (If >/= 3 additional questions will be reviewed) 3 Worrying too much about different things Nearly Everyday Trouble relaxing Nearly Everyday Being so restless that it is hard to sit still Nearly Everyday Becoming easily annoyed or irritable Nearly Everyday Feeling afraid, as if something awful might happen Nearly Everyday How difficult to do work, care for home, get along with people Somewhat difficult CHERI-7 Score 18 Genetic Screening: Partner present: No Patient verbalized knowledge of partner family health history: No Do you or your partner have any personal or family history of defects not previously discussed: No Do you have history of a complicated by anomaly, genetic condition, or demise: No Preeclampsia Risk Screening: Screening for prevention of preeclampsia: High risk factors: History of pre-eclampsia, especially when accompanied by an adverse outcome Moderate risk ractors: Age 35 years or older OB Risk Screening: Completed, positive findings include: Patient answered 'Yes' they had a prior reddy between 20w and 36w6d. Marital Status:Single Partner: Name: Jace Ramsey Age: 31 Occupation: [employer] Gender: Male PAST MEDICAL HISTORY Diagnosis Date Anemia GERD (gastroesophageal reflux disease) History of pre-eclampsia kidney stones Known medical problems melanoma back Malignant melanoma (HCC) depression PAST SURGICAL HISTORY Procedure Laterality Date IUD INSERTION (OUTCOMES MANAGER DEPT)_*FL 01/29/2008 Mirena IUD REMOVAL (OUTCOMES MANAGER DEPT)_*FL 06/28/2008 Mirena KIDNEY STONE SURGERY HX 09/2021 PAST SURGICAL HISTORY OF 2024 skin lesion biopsy, back Current Outpatient Medications Medication Sig Dispense Refill PNV no.95/ferrous fum/folic ac ( ORAL) Take by mouth. albuterol HFA (PROAIR HFA) 90 mcg/actuation inhaler Inhale 2 Puffs as instructed every 4 hours as needed for Wheezing/Shortness of Breath. 1 Inhaler 0 iv contrast (will be provided with radiology test) CT Chest ABD/PEL-Inject, intravenously, once for 1 dose.No IV access, insert saline lock prior to the beginning of sedation, infusion, injection of imaging exam. Discontinue saline lock post exam. If Pt. has a central line or IVAD, may access for administration according to line specific nursing protocol. Once exam is complete flush line and de-access according to line specific nursing protocol in the CT contrast administration guidelines link. (Patient not taking: Reported on 07/28/2024) 1 Each 0 No current facility-administered medications for this visit. Allergies As of Date: 08/04/2024 (No Known Allergies) Fully Assessed 08/04/2024 Does patient have penicillin allergy: No REVIEW OF SYSTEMS: GENERAL: Negative for: Fever or Chills and Positive for: Fatigue HEENT: Negative for: Headache, Impaired Vision, Ringing in Ears, Nosebleeds NECK: Negative for: Swelling, Pain, Stiffness RESPIRATORY: Negative for: Cough, Shortness of breath, Wheezing GASTROINTESTINAL: Negative for: Heartburn, Constipation, Diarrhea, Blood in stool, Vomiting, Positive for: Nausea and Positive for: Heartburn MUSCULOSKELETAL: Negative for: Muscle or joint pain, stiffness, Joint swelling NEUROLOGIC/PSYCHIATRIC: Negative for: Weakness, Paralysis, Numbness, Tingling, Tremor, Anxiety, Depression, Memory loss SKIN: Negative for: Rash, Itching GENITOURINARY: Negative for: vaginal itching, vaginal discharge, hematuria or dysuria and Positive for: urinary frequency SENSITIVE EXAM: The sensitive examination was discussed with the Patient or Patient's Authorized Senior Quality Control Inspector. As applicable, any other physician, advance practice provider, medical student, or other health professional student that will be observing or involved in the sensitive examination for educational or training purposes was discussed with the Patient or Authorized Senior Quality Control Inspector. The Patient or Authorized Senior Quality Control Inspector has agreed to proceed with the sensitive examination. (Sensitive examination includes inspection and/or palpation of the breasts, pelvis, prostate and anorectal regions). PHYSICAL EXAM: BP 102/66 Ht 5' 6.732 (1.70m) Wt 136 lb (61.7kg) LMP 05/23/2024 BMI 21.47 kg/(m^2). GENERAL: pleasant in no apparent distress DERMATOLOGY: Normal, without lesions, non-icteric, and non-hirsute NECK: Supple and full range of motion CHEST: Normal inspiratory effort BREAST: soft, non-tender, symmetric, no dominant mass, normal nipple-areolar complex, no lymphadenopathy, and no nipple discharge ABDOMEN: soft, non-tender, and no masses NEURO: alert and oriented x3,exam grossly non-focal PELVIS: External genitalia normal without lesions. Perineal body intact. No vaginal or cervical lesions. Cervix closed. Clinical Pelvimetry: Pelvimetry clinically assessed as adequate Limited OB ultrasound exam: single intrauterine , positive cardiac activity, and crown-rump length 9.5 weeks ASSESSMENT: 39 year old at 9w2d wks gestational age PLAN: 1) Patient oriented to practice. Patient given new OB orientation folder. Discussed nutrition, folic acid supplementation, dietary guidelines, exercise, smoking, alcohol, caffeine, and drug use. Discussed routine OB labs including STD/HIV. Discussed how to access Your guide to a health and the Acupuncture Physician. Reviewed midwifery and emergency medical service manager services that are available. Reviewed [employer] program. Patient declines referral at this time. 2) Screening: Hemoglobin A1C: ordered Baby Aspirin: The patient has been counseled about the potential benefits of low dose aspirin in and our recommendation that this be offered to all patients, regardless of whether they meet the high risk criteria specified above. She Accepts Aneuploidy Screening: Discussed aneuploidy screening, nuchal translucency/first trimester early anatomy ultrasound and NIPT. The risks/benefits and limitations of NIPT/aneuploidy screening were reviewed including the potential for false negative and false positive results. The availability of genetic counseling was reviewed. Information on aneuploidy screening was provided. The patient chooses to proceed with First trimester early anatomy ultrasound (12-13w6d) and NIPT (10 weeks) Myriad Carrier Screening: Discussed myriad carrier screening. We discussed the availability of professional-society guided carrier screening and reviewed the conditions screened and limitations of screening. The availability of genetic counseling was reviewed. Information on carrier screening was provided. The patient Declines 3) Patient offered option of Virtual Visits. Patient prefers in person visits. 4) History of . Will order MFM consult for further discussion. AMA: Aneuploidy screening reviewed Follow up in 4 weeks or sooner prn. Jen oBwling APRN.CNM documented in this encounter [facility] 08-03-2024 Instructions Raffy Kate MA - 08/03/2024 10:58 AM EDT Please select the following link to access the [facility] Your Guide to a Healthy . [email or web address] documented in this encounter [facility] 07-29-2024 Telephone encounter Note Chas Forrest, You had an appointment with Dr. Werner today that you did not log in for. If you are still seeking care with her, please call [phone] to reschedule. If not, please call the office at [phone] to update the office. Elsa RNCC [facility] 07-29-2024 Miscellaneous Notes Chas Forrest, You had an appointment with Dr. Werner today that you did not log in for. If you are still seeking care with her, please call [phone] to reschedule. If not, please call the office at [phone] to update the office. Elsa RNCC documented in this encounter [facility] 07-28-2024 History of Present illness Narrative Images from the original note were not included. Sanjuanita Rodarte MD Surgical Oncology [address] [facility], [address] [place] [id number] Name: Adriane Avalos Age: [age] year old Sex: Adriane Avalos : 1985 Referring Provider: No ref. provider found Subjective CHIEF COMPLAINT: Melanoma surveillance ONCOLOGIC HISTORY: 03/03/24: Melanoma of upper back 04/03/24: WLE + SLNB, path: [id number] Anatomic Location: Upper back Breslow Depth: 1.5mm Ulceration: No Mitosis: 1/mm2 Waldo Lymph Node Biopsy: Yes Number of positive SLN: +1/2 Largest deposit: 0.1mm HISTORY OF PRESENT ILLNESS: Ms. Avalos is a 39 year old female who presents for follow up for history of melanoma. Recently had dermatology appointment where they biopsied another skin lesion which returned with some atypical cells. So she is undergoing a further excision tomorrow. Is currently 9 weeks . Neoadjuvant Immunotherapy: No Number of Neoadjuvant Immunotherapy Cycles: N/A Adjuvant Immunotherapy: No Number of Adjuvant Immunotherapy Cycles: N/A Recurrence: No Location of Recurrence: N/A I personally reviewed Objective PHYSICAL EXAM: Ht 5' 6 (1.68m) Wt 138 lb (62.6kg) LMP 05/23/2024 BMI 22.28 kg/(m^2). Physical Exam Constitutional: General: She is not in acute distress. Appearance: Normal appearance. HENT: Head: Normocephalic and atraumatic. Mouth/Throat: Mouth: Mucous membranes are moist. Eyes: Extraocular Movements: Extraocular movements intact. Cardiovascular: Rate and Rhythm: Normal rate. Pulmonary: Effort: Pulmonary effort is normal. No respiratory distress. Abdominal: General: Abdomen is flat. Palpations: Abdomen is soft. Musculoskeletal: General: Normal range of motion. Cervical back: Normal range of motion. Lymphadenopathy: Cervical: No cervical adenopathy. Upper Body: Right upper body: No supraclavicular or axillary adenopathy. Left upper body: No supraclavicular or axillary adenopathy. Lower Body: No right inguinal adenopathy. No left inguinal adenopathy. Skin: General: Skin is warm and dry. Comments: WLE scar well healed without evidence of recurrence or pigmented lesions. Neurological: General: No focal deficit present. Mental Status: She is alert and oriented to person, place, and time. Mental status is at baseline. Psychiatric: Mood and Affect: Mood normal. Behavior: Behavior normal. Thought Content: Thought content normal. Judgment: Judgment normal. DATA: Labs: N/A Images: N/A Assessment/Plan Ms. Avalos is a 39 year old female with history of melanoma of upper back, s/p WLE and SLNB, no signs of recurrence. -Will follow up on previously scheduled US of axilla -Follow up in 3 months with imaging - US of axilla given . -Follow up with Dermatology q3 months. -Skin protection discussed Cancer Staging 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) Staging form: Melanoma of the Skin, AJCC 8th Edition - Pathologic stage from 04/03/2024: Stage IIIA (pT2a, pN1a, cM0) - Signed by Sanjuanita Rodarte MD on 04/13/2024 Sanjuanita Rodarte MD 07/28/2024 [id number] documented in this encounter [facility] 07-28-2024 Note HNO ID: [id number] Author: SANJUANITA RODARTE MD Service: ? Author Type: Physician Type: Progress Notes Filed: 07/28/2024 11:39 Note Text: Sanjuanita Rodarte MD Surgical Oncology [address] [facility], [address] [place] [id number] Name: Adriane Avalos Age: [age] year old Sex: Adriane Avalos : 1985 Referring Provider: No ref. provider found Subjective CHIEF COMPLAINT: Melanoma surveillance ONCOLOGIC HISTORY: 03/03/24: Melanoma of upper back 04/03/24: WLE + SLNB, path: [id number] Anatomic Location: Upper back Breslow Depth: 1.5mm Ulceration: No Mitosis: 1/mm2 Waldo Lymph Node Biopsy: Yes Number of positive SLN: +1/2 Largest deposit: 0.1mm HISTORY OF PRESENT ILLNESS: Ms. Avalos is a 39 year old female who presents for follow up for history of melanoma. Recently had dermatology appointment where they biopsied another skin lesion which returned with some atypical cells. So she is undergoing a further excision tomorrow. Is currently 9 weeks . Neoadjuvant Immunotherapy: No Number of Neoadjuvant Immunotherapy Cycles: N/A Adjuvant Immunotherapy: No Number of Adjuvant Immunotherapy Cycles: N/A Recurrence: No Location of Recurrence: N/A I personally reviewed Objective PHYSICAL EXAM: Ht 5' 6 (1.68m) Wt 138 lb (62.6kg) LMP 05/23/2024 BMI 22.28 kg/(m2). Physical Exam Constitutional: General: She is not in acute distress. Appearance: Normal appearance. HENT: Head: Normocephalic and atraumatic. Mouth/Throat: Mouth: Mucous membranes are moist. Eyes: Extraocular Movements: Extraocular movements intact. Cardiovascular: Rate and Rhythm: Normal rate. Pulmonary: Effort: Pulmonary effort is normal. No respiratory distress. Abdominal: General: Abdomen is flat. Palpations: Abdomen is soft. Musculoskeletal: General: Normal range of motion. Cervical back: Normal range of motion. Lymphadenopathy: Cervical: No cervical adenopathy. Upper Body: Right upper body: No supraclavicular or axillary adenopathy. Left upper body: No supraclavicular or axillary adenopathy. Lower Body: No right inguinal adenopathy. No left inguinal adenopathy. Skin: General: Skin is warm and dry. Comments: WLE scar well healed without evidence of recurrence or pigmented lesions. Neurological: General: No focal deficit present. Mental Status: She is alert and oriented to person, place, and time. Mental status is at baseline. Psychiatric: Mood and Affect: Mood normal. Behavior: Behavior normal. Thought Content: Thought content normal. Judgment: Judgment normal. DATA: Labs: N/A Images: N/A Assessment/Plan Ms. Avalos is a 39 year old female with history of melanoma of upper back, s/p WLE and SLNB, no signs of recurrence. -Will follow up on previously scheduled US of axilla -Follow up in 3 months with imaging - US of axilla given . -Follow up with Dermatology q3 months. -Skin protection discussed Cancer Staging 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) Staging form: Melanoma of the Skin, AJCC 8th Edition - Pathologic stage from 04/03/2024: Stage IIIA (pT2a, pN1a, cM0) - Signed by Sanjuanita Rodarte MD on 04/13/2024 Sanjuanita Rodarte MD 07/28/2024 [id number] [facility] 07-16-2024 Note HNO ID: [id number] Author: ARIN TAYLOR APRN.OPERATIONS OFFICER Service: ? Author Type: Nurse Practitioner Type: Progress Notes Filed: 07/16/2024 12:08 Note Text: 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 Adriane Avalos is a 39 year old female who presents for problem visit of positive test. HPI: Adriane presents for confirmation of . Taking PNV. was unplanned, but she is accepting. LMP 05/23/24. OB History Gravida5 Para3 Term2 Preterm1 AB2 Living3 SAB2 IAB0 Ectopic0 Multiple0 Live Births3 Dean Of Admissions History LMP: 05/23/2024 (Exact Date), Age at Menarche: 14 Age at First : Age at Menopause: Dean Of Admissions History Comments: Sexual Activity: Yes; Male Contraception: No contraception data on record Menstrual Tracking History Flowsheet Row Office Visit from 04/23/2024 in OB/Gynecology Period Cycle (Days) 28 Period Duration (Days) 6 Menstrual Flow Moderate PAST MEDICAL HISTORY Diagnosis Date - Anemia - GERD (gastroesophageal reflux disease) - History of pre-eclampsia - kidney stones - Known medical problems melanoma back - depression PAST SURGICAL HISTORY Procedure Laterality Date - IUD INSERTION (OUTCOMES MANAGER DEPT)_*FL 01/29/2008 Mirena - IUD REMOVAL (OUTCOMES MANAGER DEPT)_*FL 06/28/2008 Mirena - KIDNEY STONE SURGERY HX 09/2021 - PAST SURGICAL HISTORY OF 2024 skin lesion biopsy, back FAMILY HISTORY Problem Relation Age of Onset - Breast Cancer Maternal Grandmother 75 - Melanoma Maternal Grandmother one on nose - Diabetes Maternal Grandfather - Heart Maternal Grandfather [place]- Social History Tobacco Use - Smoking status: Former Current packs/day: 0.50 Average packs/day: 0.5 packs/day for 0.4 years (0.2 ttl pk-yrs) Types: Cigarettes Start date: 06/02/2009 Quit date: 06/03/2015 - Smokeless tobacco: Never Vaping Use - Vaping status: Never Used Substance Use Topics - Alcohol use: Not Currently Comment: OCCASIONALLY - Drug use: Never Current Outpatient Medications Medication Sig - albuterol HFA (PROAIR HFA) 90 mcg/actuation inhaler Inhale 2 Puffs as instructed every 4 hours as needed for Wheezing/Shortness of Breath. - iv contrast (will be provided with radiology test) CT Chest ABD/PEL-Inject, intravenously, once for 1 dose.No IV access, insert saline lock prior to the beginning of sedation, infusion, injection of imaging exam. Discontinue saline lock post exam. If Pt. has a central line or IVAD, may access for administration according to line specific nursing protocol. Once exam is complete flush line and de-access according to line specific nursing protocol in the CT contrast administration guidelines link. No current facility-administered medications for this visit. Allergies As of Date: 07/16/2024 (No Known Allergies) Fully Assessed 07/16/2024 REVIEW OF SYSTEMS Expanded ROS: OUTCOMES MANAGER: + test Allergies and current medication updated:Yes SENSITIVE EXAM: The sensitive examination was discussed with the Patient or Patient's Authorized Senior Quality Control Inspector. As applicable, any other physician, advance practice provider, medical student, or other health professional student that will be observing or involved in the sensitive examination for educational or training purposes was discussed with the Patient or Authorized Senior Quality Control Inspector. The Patient or Authorized Senior Quality Control Inspector has agreed to proceed with the sensitive examination. (Sensitive examination includes inspection and/or palpation of the breasts, pelvis, prostate and anorectal regions). EXAM: BP 104/60 Wt 135 lb (61.2kg) LMP 05/23/2024 GENERAL: pleasant, female in no apparent distress HEENT: Normocephalic, atraumatic, mucus membranes moist, and no lesions CHEST: Normal inspiratory effort PELVIC: external genitalia normal, normal Bartholin's glands, urethra, Haven's glands, no vulvar lesions, normal appearing perineal body and perianal region NEURO: alert and oriented x3,exam grossly non-focal EXTREMITIES: normal ASSESSMENT AND PLAN: 1. Encounter for test, result positive (HCC) - ICD9: V72.42, ICD10: Z32.01 (primary diagnosis) - Enrolled in care director rn - Recommend continuing PNV - Reviewed avoiding environmental exposures - Schedule new OB visit 2. with uncertain dates in first trimester (HCC) - ICD9: V22.1, ICD10: Z34.91 - POCUS confirms IUP - POCUS inconsistent with LMP. Confirm MORENO with NT RTO for new OB visit or sooner as needed. Arin Taylor APRN.AURY Medical Decision Making: Problems: Moderate: New problem with uncertain prognosis Data: Unique test(s) ordered: 2 Risk: Minimal: Minimal risk from testing/treatment Medical Decision Making Level: 3 - Low [facility] 05-28-2024 History of Present illness Narrative Images from the original note were not included. [facility] Department of Medical Genetics Consultation Note Genetic Counselor: Dmitry Gutiérrez [facility] [place] Patient: Adriane Avalos This visit was conducted via [employer]. I have communicated my name and active licensure. The patient's identity and physical location were verified at the time of this visit. Either the patient or their legal international sales representative has been informed of the risks and benefits of -- and alternatives to -- treatment through a remote evaluation and consents to proceed with the evaluation remotely. The patient provided consent for a genetic counseling student to observe their appointment. HIGH LEVEL SUMMARY: The patient's personal and family history is potentially suggestive of a hereditary cancer syndrome. The patient provided informed consent for Multi-Cancer panel through [employer] [facility]. Results are expected in 2-3 weeks from the time of sample collection. Genetic counseling and consideration of genetic testing is recommended for the patient's maternal grandmother. We will request that [employer] sends a saliva kit to the patient's home. The patient should follow up with me if they do not receive this kit within one week of today's appointment. IDENTIFICATION AND CHIEF COMPLAINT: Dr. Valeria Werner requested a consultation for genetic counseling and risk assessment for Adriane Avalos, a 39 year old female, for discussion of her recent diagnosis of melanoma and family history of breast cancer and melanoma. She presents to clinic today to discuss the possibility of a genetic predisposition to cancer, and to further clarify her risks, as well as her family members' risks for cancer. 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 This was found to be metastatic to one lymph node. She is being followed for surveillance and serial imaging. PAST MEDICAL HISTORY Diagnosis Date Anemia GERD (gastroesophageal reflux disease) History of pre-eclampsia kidney stones Known medical problems melanoma back depression PAST SURGICAL HISTORY Procedure Laterality Date IUD INSERTION (OUTCOMES MANAGER DEPT)_*FL 01/29/2008 Mirena IUD REMOVAL (OUTCOMES MANAGER DEPT)_*FL 06/28/2008 Mirena KIDNEY STONE SURGERY HX 09/2021 PAST SURGICAL HISTORY OF 2024 skin lesion biopsy, back CANCER SURVEILLANCE HISTORY: Mammograms: Yes / most recent on 06/03/2018 Breast MRI's: No Breast Biopsies: No Colonoscopy: No EGD: No GI Polyps: N/A Dermatology: Yes / most recent in February, goes every 3 months for follow up per patient REPRODUCTIVE HISTORY AND PERSONAL RISK ASSESSMENT FACTORS: Weight: Last 1 Encounter Wt Readings: Date: Wt: 05/01/2024 59.6 kg (131 lb 6.3 oz) Height: Last 1 Encounter Ht Readings: Date: Ht: 05/01/2024 168.9 cm (5' 6.5) Menarche was at age 14 Premenopausal Uterus Intact: Yes Ovaries Intact: Yes First live at age 20 She has not used HRT in the past. SOCIAL HISTORY: Social History Tobacco Use Smoking status: Every Day Current packs/day: 0.50 Average packs/day: 0.5 packs/day for 0.3 years (0.1 ttl pk-yrs) Types: Cigarettes Start date: 06/02/2009 Last attempt to quit: 06/03/2015 Smokeless tobacco: Never Vaping Use Vaping status: Never Used Substance Use Topics Alcohol use: Not Currently Comment: OCCASIONALLY Drug use: Never FAMILY HISTORY: We obtained a detailed, 4-generation family history. Significant diagnoses are listed below: FAMILY HISTORY Problem Relation Age of Onset Breast Cancer Maternal Grandmother 75 Melanoma Maternal Grandmother one on nose Diabetes Maternal Grandfather Heart Maternal Grandfather [place]- The patient's maternal ancestors are of [place] descent and paternal ancestors are of unknown descent. It is unknown if there is Ashkenazi Jehovah'S Witness ancestry. It is unknown if there is consanguinity. A copy of the patient's pedigree will be available under the scanned documents tab following today's visit. GENETIC COUNSELING RISK ASSESSMENT, DISCUSSION, AND SUGGESTED FOLLOW UP: We reviewed the natural history and genetic etiology of sporadic, familial and hereditary cancer syndromes. The patient's personal and family history is potentially suggestive of: a hereditary cancer syndrome Genetic testing can be offered to individuals that have been diagnosed with melanoma that meet the following criteria: >= 2 melanomas in an individual or family melanoma and other cancer(s) in an individual melanoma and at least 2 other cancers in 1st- or 2nd-degree relatives age <=35 at diagnosis Uveal melanoma Non-cutaneous melanoma Melanoma in non-sun exposed area limited family structure Additionally, a recent 2023 study (PMID: 47940204) showed that 10.6-15.8% patients with melanoma have a germline pathogenic/likely pathogenic mutation, so genetic testing can be considered for any patient with a diagnosis of melanoma, regardless of additional history. We discussed that identification of a hereditary cancer syndrome may help her care providers tailor her medical management. If a mutation is detected, the National Comprehensive Cancer Network and/or expert opinion recommendations could include increased cancer surveillance and prophylactic surgery options. If a mutation is detected, the patient will be referred back to the referring provider and to any additional appropriate care providers to discuss the relevant options. Inheritance of hereditary cancer syndromes was discussed with the patient. If a mutation is not found in the patient, this will decrease the likelihood of a hereditary cancer syndrome as the explanation for the patient's personal history of melanoma. However, it cannot completely rule out this possibility. Cancer surveillance options would be discussed for the patient according to the appropriate standard National Comprehensive Cancer Network and [place] Cancer Society guidelines, with consideration of their personal and family history risk factors. In this case, the patient will be referred back to their care providers for discussions of management. After considering the risks, benefits, and limitations, the patient chose to pursue and provided informed consent for the following testing: Multi-Cancer panel through [employer]. The Multi-Cancer Panel includes the following 70 genes: AIP, ALK, APC, SOTO, AXIN2, BAP1, BARD1, BLM, BMPR1A, BRCA1, BRCA2, BRIP1, CDC73, CDH1, CDK4, CDKN1B, CDKN2A, CHEK2, CTNNA1, DICER1, EGFR, EPCAM, FH, FLCN, GREM1, HOXB13, KIT, LZTR1, MAX, MBD4, MEN1, MET, MITF, MLH1, MSH2, MSH3, MSH6, MUTYH, NF1, NF2, NTHL1, PALB2, PDGFRA, PMS2, POLD1, POLE, POT1, HLMBL3H, PTCH1, PTEN, RAD51C, RAD51D, RB1, RET, SDHA, SDHAF2, SDHB, SDHC, SDHD, SMAD4, SMARCA4, SMARCB1, SMARCE1, STK11, SUFU, HENC995, TP53, TSC1, TSC2, VHL. The Multi-Cancer panel looks at genes associated with cancers of the breast, gynecologic tract (ovarian, uterine/endometrial), gastrointestinal system (colorectal, gastric, pancreatic), endocrine glands (thyroid, parathyroid, pituitary, adrenal glands), genitourinary tract (renal/urinary tract, prostate), skin (melanoma, basal cell carcinoma), and brain/nervous system. We discussed that an NGS panel can rarely result in an unexpected finding which may or may not be related to the presenting phenotype. We discussed that [employer] may contact the patient regarding billing. The patient should watch for this communication and respond promptly. The patient should contact [employer] directly with any billing questions (ph. [phone] or [email or web address]). Per the patient's request, we will contact her by [employer] or telephone to review these results. A follow up genetic counseling visit will be scheduled if requested. The patient was offered a referral to meet with a therapist. The patient declined the referral at this time and was told to reach out if she changes her mind. The patient was seen for a total of 30 minutes, greater than 50% of which was spent [id number] counseling. This plan is being carried out under the oversight of Dr. Bhavana Marshall. This note will also be sent to the referring provider via the electronic medical record. EVITA Leiva L[facility] CC: Dr. Valeria Marshall documented in this encounter [facility] 05-28-2024 Note HNO ID: [id number] Author: DMITRY GUTIÉRREZ LGC Service: ? Author Type: Research Type: Progress Notes Filed: 05/28/2024 15:58 Note Text: [facility] Department of Medical Genetics Consultation Note Genetic Counselor: EVITA Leiva [facility] Patient: Adriane Avalos This visit was conducted via [employer]. I have communicated my name and active licensure. The patient's identity and physical location were verified at the time of this visit. Either the patient or their legal international sales representative has been informed of the risks and benefits of -- and alternatives to -- treatment through a remote evaluation and consents to proceed with the evaluation remotely. The patient provided consent for a genetic counseling student to observe their appointment. HIGH LEVEL SUMMARY: The patient's personal and family history is potentially suggestive of a hereditary cancer syndrome. The patient provided informed consent for Multi-Cancer panel through [employer]. Results are expected in 2-3 weeks from the time of sample collection. Genetic counseling and consideration of genetic testing is recommended for the patient's maternal grandmother. We will request that [employer] sends a saliva kit to the patient's home. The patient should follow up with me if they do not receive this kit within one week of today's appointment. IDENTIFICATION AND CHIEF COMPLAINT: Dr. Valeria Werner requested a consultation for genetic counseling and risk assessment for Adriane Avalos, a 39 year old female, for discussion of her recent diagnosis of melanoma and family history of breast cancer and melanoma. She presents to clinic today to discuss the possibility of a genetic predisposition to cancer, and to further clarify her risks, as well as her family members' risks for cancer. 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 This was found to be metastatic to one lymph node. She is being followed for surveillance and serial imaging. PAST MEDICAL HISTORY Diagnosis Date Anemia GERD (gastroesophageal reflux disease) History of pre-eclampsia kidney stones Known medical problems melanoma back depression PAST SURGICAL HISTORY Procedure Laterality Date IUD INSERTION (OUTCOMES MANAGER DEPT)_*FL 01/29/2008 Mirena IUD REMOVAL (OUTCOMES MANAGER DEPT)_*FL 06/28/2008 Mirena KIDNEY STONE SURGERY HX 09/2021 PAST SURGICAL HISTORY OF 2024 skin lesion biopsy, back CANCER SURVEILLANCE HISTORY: Mammograms: Yes / most recent on 06/03/2018 Breast MRI's: No Breast Biopsies: No Colonoscopy: No EGD: No GI Polyps: N/A Dermatology: Yes / most recent in February, goes every 3 months for follow up per patient REPRODUCTIVE HISTORY AND PERSONAL RISK ASSESSMENT FACTORS: Weight: Last 1 Encounter Wt Readings: Date: Wt: 05/01/2024 59.6 kg (131 lb 6.3 oz) Height: Last 1 Encounter Ht Readings: Date: Ht: 05/01/2024 168.9 cm (5' 6.5) Menarche was at age 14 Premenopausal Uterus Intact: Yes Ovaries Intact: Yes First live at age 20 She has not used HRT in the past. SOCIAL HISTORY: Social History Tobacco Use Smoking status: Every Day Current packs/day: 0.50 Average packs/day: 0.5 packs/day for 0.3 years (0.1 ttl pk-yrs) Types: Cigarettes Start date: 06/02/2009 Last attempt to quit: 06/03/2015 Smokeless tobacco: Never Vaping Use Vaping status: Never Used Substance Use Topics Alcohol use: Not Currently Comment: OCCASIONALLY Drug use: Never FAMILY HISTORY: We obtained a detailed, 4-generation family history. Significant diagnoses are listed below: FAMILY HISTORY Problem Relation Age of Onset Breast Cancer Maternal Grandmother 75 Melanoma Maternal Grandmother one on nose Diabetes Maternal Grandfather Heart Maternal Grandfather [place]- The patient's maternal ancestors are of [place] descent and paternal ancestors are of unknown descent. It is unknown if there is Ashkenazi Jehovah'S Witness ancestry. It is unknown if there is consanguinity. A copy of the patient's pedigree will be available under the scanned documents tab following today's visit. GENETIC COUNSELING RISK ASSESSMENT, DISCUSSION, AND SUGGESTED FOLLOW UP: We reviewed the natural history and genetic etiology of sporadic, familial and hereditary cancer syndromes. The patient's personal and family history is potentially suggestive of: a hereditary cancer syndrome Genetic testing can be offered to individuals that have been diagnosed with melanoma that meet the following criteria: >= 2 melanomas in an individual or family melanoma and other cancer(s) in an individual melanoma and at least 2 other cancers in 1st- or 2nd-degree relatives age <=35 at diagnosis Uveal melanoma Non-cutaneous melanoma Melanoma in non-sun exposed area limited family structure Additionally, a recent 2023 study (PMID: 121876 (more content not included)... [facility] 05-13-2024 History of Present illness Narrative Radiology Service Progress Note PATIENT NAME: Adriane JURADON: [id number] DATE OF SERVICE: May 13, 2024 TIME: 11:58 AM PATIENT IDENTITY VERIFICATION COMPLETED USING TWO (2) IDENTIFIERS: Name and Date of confirmed by patient verbally. FALL SCREENING: Has the patient had 2 falls in the last year or 1 fall with injury or currently using an Ambulatory Assistive Device (Walker, Cane, Wheelchair, Crutches, etc.)? No PATIENT GENDER DATA: Assigned female at . status: Unknown status: N/A PATIENT RELEVANT IMPLANT DATA REVIEWED: Not Applicable PATIENT PRESENTS WITH AN IMPLANTABLE OR ATTACHED GROUP MANAGER: No RADIOLOGY DEPARTMENT: Ultrasound PERIPHERAL IV DATA: Not applicable SIGNED BY: Abad Nunez RDMS, RVAva May 13, 2024 11:58 AM documented in this encounter [facility] 05-13-2024 Note HNO ID: [id number] Author: ABAD NUNEZ RDMS Service: ? Author Type: Shelf Filler Type: Progress Notes Filed: 05/13/2024 11:58 Note Text: Radiology Service Progress Note PATIENT NAME: Adriane Avalos DATE OF SERVICE: May 13, 2024 TIME: 11:58 AM PATIENT IDENTITY VERIFICATION COMPLETED USING TWO (2) IDENTIFIERS: Name and Date of confirmed by patient verbally. FALL SCREENING: Has the patient had 2 falls in the last year or 1 fall with injury or currently using an Ambulatory Assistive Device (Walker, Cane, Wheelchair, Crutches, etc.)? No PATIENT GENDER DATA: Assigned female at . status: Unknown status: N/A PATIENT RELEVANT IMPLANT DATA REVIEWED: Not Applicable PATIENT PRESENTS WITH AN IMPLANTABLE OR ATTACHED GROUP MANAGER: No RADIOLOGY DEPARTMENT: Ultrasound PERIPHERAL IV DATA: Not applicable SIGNED BY: Abad Nunez RDMS, RVT May 13, 2024 11:[address] [facility] 05-01-2024 Instructions Valeria Werner MD - 05/01/2024 10:05 AM EST I will have your original biopsy reviewed here. I will see you back in [address] Rodarte I ordered a consult to genetics to discuss if there could be any mutation that could be passed down in your family that could affect your or your children's cancer risk documented in this encounter [facility] 05-01-2024 Note HNO ID: [id number] Author: SHARONDA KINNEY MA Service: ? Author Type: Hot Wort Settler Type: Progress Notes Filed: 05/01/2024 10:58 Note Text: Additional intake questions: Has the patient had fever, nausea, vomiting, diarrhea, constipation, fatigue for > 1 week? No Does the patient have a decreased appetite? No Does patient want to see a Calender Supervisor? No (yes to any of above refer patient to schedulers for dietitian appointment) ) Does patient have any new or increased numbness or tingling of extremities? No Is patient interested in fertility information? No Does patient need any prescription refills? No Does patient have an advanced directive in place? No, Electronically Signed By: Sharonda Kinney MA [facility] 05-01-2024 History of Present illness Narrative Additional intake questions: Has the patient had fever, nausea, vomiting, diarrhea, constipation, fatigue for > 1 week? No Does the patient have a decreased appetite? No Does patient want to see a Calender Supervisor? No (yes to any of above refer patient to schedulers for dietitian appointment) ) Does patient have any new or increased numbness or tingling of extremities? No Is patient interested in fertility information? No Does patient need any prescription refills? No Does patient have an advanced directive in place? No, Electronically Signed By: Sharonda Kinney MA [facility] Patient name: Adriane Avalos Date of service: May 01, 2024 Diagnosis Stage IIIA melanoma, upper back Oncology History Stage IIIA melanoma of upper back 03/03/24: melanoma of upper back: Depth 1.5 mm. Ulceration not present. [facility] 04/03/24 WLE and SLNB: no residual melanoma. [place] lymph node with metastatic melanoma in 1/2 lymph nodes. The metastatic deposit measures 0.1 mm. No extranodal extension is present. 04/23/24 CT C/A/P and brain MRI: incompletely evaluated cervical nodes for which she will have ultrasound; otherwise no evidence of metastatic disease Molecular None Current treatment Surveillance History of Present Illness Ms. Avalos is seen for a diagnosis of stage IIIA melanoma of upper back with < 1mm lymph node involvement. She had biopsy of the upper back on 03/03/24 with pathology showing melanoma, thickness 1.5 mm, ulceration not present. WLE and SLNB on 04/03/24 with metastatic melanoma in 1 lymph node with largest deposit of melanoma measuring 0.1 mm. She has no history of autoimmune disease. Past Medical History PAST MEDICAL HISTORY Diagnosis Date Anemia GERD (gastroesophageal reflux disease) History of pre-eclampsia kidney stones Known medical problems melanoma back depression Surgical History PAST SURGICAL HISTORY Procedure Laterality Date IUD INSERTION (OUTCOMES MANAGER DEPT)_*FL 01/29/2008 Mirena IUD REMOVAL (OUTCOMES MANAGER DEPT)_*FL 06/28/2008 Mirena KIDNEY STONE SURGERY HX 09/2021 PAST SURGICAL HISTORY OF 2024 skin lesion biopsy, back Family History FAMILY HISTORY Problem Relation Age of Onset Breast Cancer Maternal Grandmother 75 Melanoma Maternal Grandmother Diabetes Maternal Grandfather Heart Maternal Grandfather [place]- Social History Social History Tobacco Use Smoking status: Every Day Current packs/day: 0.50 Average packs/day: 0.5 packs/day for 0.2 years (0.1 ttl pk-yrs) Types: Cigarettes Start date: 06/02/2009 Last attempt to quit: 06/03/2015 Smokeless tobacco: Never Vaping Use Vaping status: Never Used Substance Use Topics Alcohol use: Not Currently Comment: OCCASIONALLY Drug use: Never Medications Current Outpatient Medications Medication Sig Dispense Refill gabapentin (NEURONTIN) 100 mg capsule Take 1 capsule by mouth three times a day for 14 days. 42 capsule 0 iv contrast (will be provided with radiology test) CT Chest ABD/PEL-Inject, intravenously, once for 1 dose.No IV access, insert saline lock prior to the beginning of sedation, infusion, injection of imaging exam. Discontinue saline lock post exam. If Pt. has a central line or IVAD, may access for administration according to line specific nursing protocol. Once exam is complete flush line and de-access according to line specific nursing protocol in the CT contrast administration guidelines link. 1 Each 0 Norethindrone, Contraceptive, (CANDICE) 0.35 mg tablet Take 1 tablet by mouth once daily. 84 tablet 3 albuterol HFA (PROAIR HFA) 90 mcg/actuation inhaler Inhale 2 Puffs as instructed every 4 hours as needed for Wheezing/Shortness of Breath. 1 Inhaler 0 iv contrast (will be provided with radiology test) CT Chest ABD/PEL-Inject, intravenously, once for 1 dose.No IV access, insert saline lock prior to the beginning of sedation, infusion, injection of imaging exam. Discontinue saline lock post exam. If Pt. has a central line or IVAD, may access for administration according to line specific nursing protocol. Once exam is complete flush line and de-access according to line specific nursing protocol in the CT contrast administration guidelines link. 1 Each 0 enteric contrast (will be provided with radiology test) For CT CHESTABD/PEL W IVCON Routine order Administer, As Directed One Time Only, via Oral, Rectal, both Oral and Rectal, Enteric Tube, Stoma or Indwelling Catheter, Enteric Contrast as designated per enteric contrast guidelines 1 Each 0 No current facility-administered medications for this visit. Allergies ALLERGIES No Known Allergies Review of systems Review of systems is negative except that noted in HPI. Physical exam Vitals BP 106/85 Pulse 76 Temp 36 C (96.8 F) (Temporal) Resp 20 Ht 168.9 cm (5' 6.5) Wt 59.6 kg (131 lb 6.3 oz) LMP 04/18/2024 (Exact Date) SpO2 99% BMI 20.89 kg/m ECOG PERFORMANCE STATUS: 0- Fully active, able to carry on all pre-disease performance w/o restriction. Physical Exam Vitals and nursing note reviewed. Constitutional: General: She is not in acute distress. HENT: Head: Normocephalic and atraumatic. Cardiovascular: Rate and Rhythm: Normal rate and regular rhythm. Heart sounds: Normal heart sounds. Pulmonary: Effort: Pulmonary effort is normal. Breath sounds: Normal breath sounds. Abdominal: General: Abdomen is flat. There is no distension. Palpations: Abdomen is soft. There is no mass. Tenderness: There is no abdominal tenderness. Musculoskeletal: General: No tenderness or signs of injury. Cervical back: No tenderness. Lymphadenopathy: Cervical: No cervical adenopathy. Comments: No palpable axillary adenopathy No palpable cervical adenopathy Well-healed scar, upper back Skin: General: Skin is warm and dry. Findings: No erythema or rash. Neurological: Mental Status: She is alert and oriented to person, place, and time. Mental status is at baseline. Labs I personally reviewed her surgical pathology reports as outlined under Oncology History. Imaging I personally reviewed her imaging as outlined under Oncology History. Assessment and plan Ms. Avalos is seen for a diagnosis of stage IIIA melanoma of upper back with 0.1 mm lymph node involvement. Stage IIIA melanoma of upper back with 0.1 mm lymph node involvement Today we discussed her diagnosis, prognosis, and treatment options. She has stage IIIA melanoma with 0.1 mm lymph node involvement. We reviewed melanoma-specific survival for AJCC 8th edition stage IIIA melanoma, which is 93% at 5 years and 88% at 10 years (Bernard et al [place] Cancer J Clin 2017). We also reviewed the following data for recurrence risk of stage IIIA melanoma which showed low risk of recurrence specifically in patients with stage IIIA melanoma with < 0.3 mm lymph node involvement (PMID [id number]). 5 year disease specific survival rate in this population was 94%. 5 year DMFS in this population was 92%. We discussed the role of immune therapy in stage III melanoma and reviewed that, in stage IIIA melanoma with < 0.3 mm lymph node involvement, the absolute benefit of immune therapy is low, and there is a risk of toxicity including immune-related adverse events including a risk of endocrinopathy, which is usually permanent. It is reasonable to proceed with active surveillance. We discussed that adjuvant dabrafenib + trametinib is also FDA approved for resected stage III melanoma but would require BRAF V600 mutation. Her BRAF mutation status is not known. We will have her outside biopsy slides reviewed here to confirm stage. Will then plan to follow with serial imaging. Due to family history of breast cancer and melanoma in addition to her age at diagnosis of melanoma I placed referral to genetics. Valeria Werner MD I spent a total of 60 minutes on the date of the service which included preparing to see the patient, [id number] patient care, completing clinical documentation, obtaining and/or reviewing separately obtained history, performing a medically appropriate examination, counseling and educating the patient/family/caregiver, ordering medications, tests, or procedures, communicating with other HCPs (not separately reported), independently interpreting results (not separately reported), communicating results to the patient/family/caregiver, and care coordination (not separately reported). documented in this encounter [facility] 05-01-2024 Note HNO ID: [id number] Author: VALERIA WERNER MD Service: ? Author Type: Physician Type: Progress Notes Filed: 05/01/2024 10:58 Note Text: [facility] Patient name: Adriane Avalos Date of service: May 01, 2024 Diagnosis Stage IIIA melanoma, upper back Oncology History Stage IIIA melanoma of upper back 03/03/24: melanoma of upper back: Depth 1.5 mm. Ulceration not present. Performed [facility] 04/03/24 WLE and SLNB: no residual melanoma. Waldo lymph node with metastatic melanoma in 1/2 lymph nodes. The metastatic deposit measures 0.1 mm. No extranodal extension is present. 04/23/24 CT C/A/P and brain MRI: incompletely evaluated cervical nodes for which she will have ultrasound; otherwise no evidence of metastatic disease Molecular None Current treatment Surveillance History of Present Illness Ms. Avalos is seen for a diagnosis of stage IIIA melanoma of upper back with < 1mm lymph node involvement. She had biopsy of the upper back on 03/03/24 with pathology showing melanoma, thickness 1.5 mm, ulceration not present. WLE and SLNB on 04/03/24 with metastatic melanoma in 1 lymph node with largest deposit of melanoma measuring 0.1 mm. She has no history of autoimmune disease. Past Medical History PAST MEDICAL HISTORY Diagnosis Date Anemia GERD (gastroesophageal reflux disease) History of pre-eclampsia kidney stones Known medical problems melanoma back depression Surgical History PAST SURGICAL HISTORY Procedure Laterality Date IUD INSERTION (OUTCOMES MANAGER DEPT)_*FL 01/29/2008 Mirena IUD REMOVAL (OUTCOMES MANAGER DEPT)_*FL 06/28/2008 Mirena KIDNEY STONE SURGERY HX 09/2021 PAST SURGICAL HISTORY OF 2024 skin lesion biopsy, back Family History FAMILY HISTORY Problem Relation Age of Onset Breast Cancer Maternal Grandmother 75 Melanoma Maternal Grandmother Diabetes Maternal Grandfather Heart Maternal Grandfather [place]- Social History Social History Tobacco Use Smoking status: Every Day Current packs/day: 0.50 Average packs/day: 0.5 packs/day for 0.2 years (0.1 ttl pk-yrs) Types: Cigarettes Start date: 06/02/2009 Last attempt to quit: 06/03/2015 Smokeless tobacco: Never Vaping Use Vaping status: Never Used Substance Use Topics Alcohol use: Not Currently Comment: OCCASIONALLY Drug use: Never Medications Current Outpatient Medications Medication Sig Dispense Refill gabapentin (NEURONTIN) 100 mg capsule Take 1 capsule by mouth three times a day for 14 days. 42 capsule 0 iv contrast (will be provided with radiology test) CT Chest ABD/PEL-Inject, intravenously, once for 1 dose.No IV access, insert saline lock prior to the beginning of sedation, infusion, injection of imaging exam. Discontinue saline lock post exam. If Pt. has a central line or IVAD, may access for administration according to line specific nursing protocol. Once exam is complete flush line and de-access according to line specific nursing protocol in the CT contrast administration guidelines link. 1 Each 0 Norethindrone, Contraceptive, (CANDICE) 0.35 mg tablet Take 1 tablet by mouth once daily. 84 tablet 3 albuterol HFA (PROAIR HFA) 90 mcg/actuation inhaler Inhale 2 Puffs as instructed every 4 hours as needed for Wheezing/Shortness of Breath. 1 Inhaler 0 iv contrast (will be provided with radiology test) CT Chest ABD/PEL-Inject, intravenously, once for 1 dose.No IV access, insert saline lock prior to the beginning of sedation, infusion, injection of imaging exam. Discontinue saline lock post exam. If Pt. has a central line or IVAD, may access for administration according to line specific nursing protocol. Once exam is complete flush line and de-access according to line specific nursing protocol in the CT contrast administration guidelines link. 1 Each 0 enteric contrast (will be provided with radiology test) For CT CHESTABD/PEL W IVCON Routine order Administer, As Directed One Time Only, via Oral, Rectal, both Oral and Rectal, Enteric Tube, Stoma or Indwelling Catheter, Enteric Contrast as designated per enteric contrast guidelines 1 Each 0 No current facility-administered medications for this visit. Allergies ALLERGIES No Known Allergies Review of systems Review of systems is negative except that noted in HPI. Physical exam Vitals BP 106/85 Pulse 76 Temp 36 ?C (96.8 ?F) (Temporal) Resp 20 Ht 168.9 cm (5' 6.5) Wt 59.6 kg (131 lb 6.3 oz) LMP 04/18/2024 (Exact Date) SpO2 99% BMI 20.89 kg/m? ECOG PERFORMANCE STATUS: 0- Fully active, able to carry on all pre-disease performance w/o restriction. Physical Exam Vitals and nursing note reviewed. Constitutional: General: She is not in acute distress. HENT: Head: Normocephalic and atraumatic. Cardiovascular: Rate and Rhythm: Normal rate and regular rhythm. Heart sounds: Normal heart sounds. Pulmonary: Effort: Pulmonary effort (more content not included)... [facility] 04-23-2024 Note HNO ID: [id number] Author: LISA CARNEY APRN.OPERATIONS OFFICER Service: ? Author Type: Nurse Practitioner Type: Progress Notes Filed: 04/23/2024 16:15 Note Text: Patient declined customs and border protection inspector. Adriane is a 39 year old who presents for an annual gynecologic exam without complaints. LMP 04/18/2024 Menses: cycles every 25 days and 5-6 days of flow. Contraception: progesterone only HPV vaccine: No Last Pap: 05/20/2018 normal HPV: 05/20/2018 negative History of abnormal pap: No Last mammogram: 2018normal OB History Gravida5 Para3 Term2 Preterm1 AB2 Living3 SAB2 IAB0 Ectopic0 Multiple0 Live Births3 [facility] History LMP: 04/18/2024 (Exact Date), Having periods Age at Menarche: 14 Age at First : Age at Menopause: [facility] History Comments: Sexual Activity: Yes; Male Contraception: Vasectomy, Pill Menstrual Tracking History Flowsheet Row Office Visit from 04/23/2024 in OB/Gynecology Period Cycle (Days) 28 Period Duration (Days) 6 Menstrual Flow Moderate PAST MEDICAL HISTORY Diagnosis Date Anemia GERD (gastroesophageal reflux disease) History of pre-eclampsia kidney stones Known medical problems melanoma back depression PAST SURGICAL HISTORY Procedure Laterality Date IUD INSERTION (OUTCOMES MANAGER DEPT)_*FL 01/29/2008 Mirena IUD REMOVAL (OUTCOMES MANAGER DEPT)_*FL 06/28/2008 Mirena KIDNEY STONE SURGERY HX 09/2021 PAST SURGICAL HISTORY OF 2024 skin lesion biopsy, back FAMILY HISTORY Problem Relation Age of Onset Breast Cancer Maternal Grandmother 75 Melanoma Maternal Grandmother Diabetes Maternal Grandfather Heart Maternal Grandfather [place]- SOCIAL HISTORY Social History Tobacco Use Smoking status: Every Day Current packs/day: 0.50 Average packs/day: 0.5 packs/day for 0.2 years (0.1 ttl pk-yrs) Types: Cigarettes Start date: 06/02/2009 Last attempt to quit: 06/03/2015 Smokeless tobacco: Never Vaping Use Vaping status: Never Used Substance Use Topics Alcohol use: Not Currently Comment: OCCASIONALLY Drug use: Never REVIEW OF SYSTEMS Abdomen: No abdominal pain, nausea, vomiting, diarrhea, or constipation. No bloating, early satiety, indigestion, or increased flatulence. Bladder: No dysuria, gross hematuria, urinary frequency, urinary urgency, +stress incontinence. Breast: No breast lumps, nipple d/c, overlying skin changes, redness or skin retraction. Allergies and current medication updated:Yes SENSITIVE EXAM: The sensitive examination was discussed with the Patient or Patient's Authorized Senior Quality Control Inspector. As applicable, any other physician, advance practice provider, medical student, or other health professional student that will be observing or involved in the sensitive examination for educational or training purposes was discussed with the Patient or Authorized Senior Quality Control Inspector. The Patient or Authorized Senior Quality Control Inspector has agreed to proceed with the sensitive examination. (Sensitive examination includes inspection and/or palpation of the breasts, pelvis, prostate and anorectal regions). EXAM: BP 120/70 Ht 5' 6 (1.68m) Wt 137 lb 6.4 oz (62.3kg) LMP 04/18/2024 BMI 22.19 kg/(m2). GENERAL: pleasant, female in no apparent distress HEENT: Normocephalic, atraumatic, mucus membranes moist, and no lesions DERMATOLOGY: Normal, without lesions, non-icteric, and non-hirsute BREAST: soft, non-tender, symmetric, no dominant mass, normal nipple-areolar complex, no lymphadenopathy, and no nipple discharge CHEST: Normal inspiratory effort ABDOMEN: soft, non-tender, and no masses PELVIC: external genitalia normal, normal Bartholin's glands, urethra, Haven's glands, no vulvar lesions, no cervical lesions, good vaginal support, physiologic discharge present, normal appearing perineal body and perianal region BIMANUAL: uterus normal size, shape and consistency, no adnexal masses, and non-tender RECTOVAGINAL: deferred. NEURO: alert and oriented x3,exam grossly non-focal EXTREMITIES: normal ASSESSMENT/PLAN: 1) Health maintenance: Pap/HPV up to date. Mammogram starting age 40. Nutrition, exercise and routine health maintenance exams reviewed. Colon cancer screening: start at age 45 2) Contraception: Progestin - only contraceptives Contraceptive options reviewed and information provided. Mirena order filed 3) STD screening: Accepted STD check for Gonorrhea and Chlamydia. 4) Follow up one year or sooner as needed Lisa Carney APRN.AURY [facility] 04-23-2024 History of Present illness Narrative Patient declined customs and border protection inspector. Adriane is a 39 year old who presents for an annual gynecologic exam without complaints. LMP 04/18/2024 Menses: cycles every 25 days and 5-6 days of flow. Contraception: progesterone only HPV vaccine: No Last Pap: 05/20/2018 normal HPV: 05/20/2018 negative History of abnormal pap: No Last mammogram: 2018normal OB History Gravida5 Para3 Term2 Preterm1 AB2 Living3 SAB2 IAB0 Ectopic0 Multiple0 Live Births3 [facility] History LMP: 04/18/2024 (Exact Date), Having periods Age at Menarche: 14 Age at First : Age at Menopause: [facility] History Comments: Sexual Activity: Yes; Male Contraception: Vasectomy, Pill Menstrual Tracking History Flowsheet Row Office Visit from 04/23/2024 in OB/Gynecology Period Cycle (Days) 28 Period Duration (Days) 6 Menstrual Flow Moderate PAST MEDICAL HISTORY Diagnosis Date Anemia GERD (gastroesophageal reflux disease) History of pre-eclampsia kidney stones Known medical problems melanoma back depression PAST SURGICAL HISTORY Procedure Laterality Date IUD INSERTION (OUTCOMES MANAGER DEPT)_*FL 01/29/2008 Mirena IUD REMOVAL (OUTCOMES MANAGER DEPT)_*FL 06/28/2008 Mirena KIDNEY STONE SURGERY HX 09/2021 PAST SURGICAL HISTORY OF 2024 skin lesion biopsy, back FAMILY HISTORY Problem Relation Age of Onset Breast Cancer Maternal Grandmother 75 Melanoma Maternal Grandmother Diabetes Maternal Grandfather Heart Maternal Grandfather [place]- SOCIAL HISTORY Social History Tobacco Use Smoking status: Every Day Current packs/day: 0.50 Average packs/day: 0.5 packs/day for 0.2 years (0.1 ttl pk-yrs) Types: Cigarettes Start date: 06/02/2009 Last attempt to quit: 06/03/2015 Smokeless tobacco: Never Vaping Use Vaping status: Never Used Substance Use Topics Alcohol use: Not Currently Comment: OCCASIONALLY Drug use: Never REVIEW OF SYSTEMS Abdomen: No abdominal pain, nausea, vomiting, diarrhea, or constipation. No bloating, early satiety, indigestion, or increased flatulence. Bladder: No dysuria, gross hematuria, urinary frequency, urinary urgency, +stress incontinence. Breast: No breast lumps, nipple d/c, overlying skin changes, redness or skin retraction. Allergies and current medication updated:Yes SENSITIVE EXAM: The sensitive examination was discussed with the Patient or Patient's Authorized Senior Quality Control Inspector. As applicable, any other physician, advance practice provider, medical student, or other health professional student that will be observing or involved in the sensitive examination for educational or training purposes was discussed with the Patient or Authorized Senior Quality Control Inspector. The Patient or Authorized Senior Quality Control Inspector has agreed to proceed with the sensitive examination. (Sensitive examination includes inspection and/or palpation of the breasts, pelvis, prostate and anorectal regions). EXAM: BP 120/70 Ht 5' 6 (1.68m) Wt 137 lb 6.4 oz (62.3kg) LMP 04/18/2024 BMI 22.19 kg/(m^2). GENERAL: pleasant, female in no apparent distress HEENT: Normocephalic, atraumatic, mucus membranes moist, and no lesions DERMATOLOGY: Normal, without lesions, non-icteric, and non-hirsute BREAST: soft, non-tender, symmetric, no dominant mass, normal nipple-areolar complex, no lymphadenopathy, and no nipple discharge CHEST: Normal inspiratory effort ABDOMEN: soft, non-tender, and no masses PELVIC: external genitalia normal, normal Bartholin's glands, urethra, Haven's glands, no vulvar lesions, no cervical lesions, good vaginal support, physiologic discharge present, normal appearing perineal body and perianal region BIMANUAL: uterus normal size, shape and consistency, no adnexal masses, and non-tender RECTOVAGINAL: deferred. NEURO: alert and oriented x3,exam grossly non-focal EXTREMITIES: normal ASSESSMENT/PLAN: 1) Health maintenance: Pap/HPV up to date. Mammogram starting age 40. Nutrition, exercise and routine health maintenance exams reviewed. Colon cancer screening: start at age 45 2) Contraception: Progestin - only contraceptives Contraceptive options reviewed and information provided. Mirena order filed 3) STD screening: Accepted STD check for Gonorrhea and Chlamydia. 4) Follow up one year or sooner as needed Lisa Carney APRN.AURY documented in this encounter [facility] 04-23-2024 History of Present illness Narrative Radiology Service Progress Note PATIENT NAME: Adriane Avalos DATE OF SERVICE: April 23, 2024 TIME: 11:10 AM PATIENT IDENTITY VERIFICATION COMPLETED USING TWO (2) IDENTIFIERS: Name and Date of confirmed by patient verbally. FALL SCREENING: Has the patient had 2 falls in the last year or 1 fall with injury or currently using an Ambulatory Assistive Device (Walker, Cane, Wheelchair, Crutches, etc.)? No PATIENT GENDER DATA: Assigned female at . status: : No status: NO. PATIENT RELEVANT IMPLANT DATA REVIEWED: Yes PATIENT PRESENTS WITH AN IMPLANTABLE OR ATTACHED GROUP MANAGER: No RADIOLOGY DEPARTMENT: MR; Exam(s) Completed: Head: Routine Brain PERIPHERAL IV DATA: Site assessment: Clean,Dry and Intact, Site disposition Discontinued SIGNED BY: RT Briseida(R) April 23, 2024 11:10 AM documented in this encounter [facility] 04-23-2024 Note HNO ID: [id number] Author: RONIT MCINTYRE RT(R) Service: ? Author Type: Technologist Type: Progress Notes Filed: 04/23/2024 11:10 Note Text: Radiology Service Progress Note PATIENT NAME: Adriane Avalos DATE OF SERVICE: April 23, 2024 TIME: 11:10 AM PATIENT IDENTITY VERIFICATION COMPLETED USING TWO (2) IDENTIFIERS: Name and Date of confirmed by patient verbally. FALL SCREENING: Has the patient had 2 falls in the last year or 1 fall with injury or currently using an Ambulatory Assistive Device (Walker, Cane, Wheelchair, Crutches, etc.)? No PATIENT GENDER DATA: Assigned female at . status: : No status: NO. PATIENT RELEVANT IMPLANT DATA REVIEWED: Yes PATIENT PRESENTS WITH AN IMPLANTABLE OR ATTACHED GROUP MANAGER: No RADIOLOGY DEPARTMENT: MR; Exam(s) Completed: Head: Routine Brain PERIPHERAL IV DATA: Site assessment: Clean,Dry and Intact, Site disposition Discontinued SIGNED BY: RT Briseida(R) April 23, 2024 11:[address] [facility] 04-23-2024 History of Present illness Narrative Radiology Service Progress Note DATE OF SERVICE: April 23, 2024 TIME: 4:03 PM PATIENT IDENTITY VERIFICATION COMPLETED USING TWO (2) STANDARD IDENTIFIERS: Name and Date of confirmed by patient verbally. FALL SCREENING: Has the patient had 2 falls in the last year or 1 fall with injury or currently using an Ambulatory Assistive Device (Walker, Cane, Wheelchair, Crutches, etc.)? No PATIENT GENDER DATA: Assigned female at . status: : No status: NO. PATIENT RELEVANT IMPLANT DATA REVIEWED: Yes PATIENT PRESENTS WITH AN IMPLANTABLE OR ATTACHED GROUP MANAGER: No ALLERGIES: Reviewed and unchanged CONTRAST ALLERGY: NO. EXAM: CT -CONTRAST INDUCED NEPHROPATHY RISK FACTORS: Not applicable CREATININE: No results found for: CREAT, EGFROTH, EGFRAA P.O.C.T. RESULTS: POC done: Yes, See Lab Tab April 23, 2024 TREATMENT: N/A PERIPHERAL IV DATA: Ambulatory: A peripheral IV was started in the Left antecubital site with a Angio cath: 22 gauge. RADIOLOGY DEPARTMENT: CT; Exam(s) Completed: Chest Abdomen Pelvis SIGNATURE: RT Anastasiia(R) PATIENT NAME: Adriane Avalos DATE: April 23, 2024 TIME: 4:03 PM documented in this encounter [facility] 04-23-2024 Note HNO ID: [id number] Author: SHANICE ABRAMS RT(R) Service: ? Author Type: Shelf Filler Type: Progress Notes Filed: 04/23/2024 16:03 Note Text: Radiology Service Progress Note DATE OF SERVICE: April 23, 2024 TIME: 4:03 PM PATIENT IDENTITY VERIFICATION COMPLETED USING TWO (2) STANDARD IDENTIFIERS: Name and Date of confirmed by patient verbally. FALL SCREENING: Has the patient had 2 falls in the last year or 1 fall with injury or currently using an Ambulatory Assistive Device (Walker, Cane, Wheelchair, Crutches, etc.)? No PATIENT GENDER DATA: Assigned female at . status: : No status: NO. PATIENT RELEVANT IMPLANT DATA REVIEWED: Yes PATIENT PRESENTS WITH AN IMPLANTABLE OR ATTACHED GROUP MANAGER: No ALLERGIES: Reviewed and unchanged CONTRAST ALLERGY: NO. EXAM: CT -CONTRAST INDUCED NEPHROPATHY RISK FACTORS: Not applicable CREATININE: No results found for: CREAT, EGFROTH, EGFRAA P.O.C.T. RESULTS: POC done: Yes, See Lab Tab April 23, 2024 TREATMENT: N/A PERIPHERAL IV DATA: Ambulatory: A peripheral IV was started in the Left antecubital site with a Angio cath: 22 gauge. RADIOLOGY DEPARTMENT: CT; Exam(s) Completed: Chest Abdomen Pelvis SIGNATURE: RT Anastasiia(R) PATIENT NAME: Adriane Avalos DATE: April 23, 2024 TIME: 4:[address] [facility] 04-14-2024 History of Present illness Narrative Sanjuanita Rodarte MD Surgical Oncology [address] [facility], [address] [place] [address] Name: Adriane Avalos Age: [age] year old Sex: Adriane Avalos : 1985 Referring Provider: No ref. provider found Subjective CHIEF COMPLAINT: Postop Melanoma ONCOLOGIC HISTORY: 03/03/24: Melanoma of upper back 04/03/24: WLE + SLNB, path: [id number] HISTORY OF PRESENT ILLNESS: Ms. Avalos is a 39 year old female who presents for postop follow up for history of melanoma. Date of Surgery:04/03/2024 Anatomic Location: Upper back B[place]low Depth: 1.5mm Ulceration: No Mitosis: 1/mm2 Waldo Lymph Node Biopsy: Yes Number of positive SLN: +1/2 Largest deposit: 0.1mm I personally reviewed Tobacco Allergies Meds Problems Med Hx Surg Hx Fam Hx Objective PHYSICAL EXAM: BP 116/72 Pulse 68 Resp 18 Ht 5' 6 (1.68m) Wt 150 lb (68.0kg) LMP 03/26/2023 BMI 24.22 kg/(m^2). Physical Exam Constitutional: Appearance: Normal appearance. She is normal weight. HENT: Head: Normocephalic and atraumatic. Eyes: Extraocular Movements: Extraocular movements intact. Cardiovascular: Rate and Rhythm: Normal rate. Pulmonary: Effort: Pulmonary effort is normal. No respiratory distress. Breath sounds: No stridor. Abdominal: General: Abdomen is flat. Palpations: Abdomen is soft. Musculoskeletal: General: Normal range of motion. Cervical back: Normal range of motion. Lymphadenopathy: Comments: Bilateral axillary seromas, no drainage Skin: General: Skin is warm and dry. Comments: Incisions well healing Neurological: General: No focal deficit present. Mental Status: She is alert and oriented to person, place, and time. Mental status is at baseline. Psychiatric: Mood and Affect: Mood normal. Behavior: Behavior normal. Thought Content: Thought content normal. Judgment: Judgment normal. DATA: Pathology Report: FINAL DIAGNOSIS A. Waldo lymph node, right axillary, excision: - Metastatic melanoma in one (1) lymph node (1/), (see comment). - The metastatic deposit is 0.1 mm. - No extranodal extension is present. B. Waldo lymph node, left axillary, excision: - One (1) benign lymph node (0/1), (see comment). C. Skin, back, wide local excision: - Skin with scar formation, consistent with prior surgical procedure. - There is a small junctional nevus near to scar, completely excised. - No evidence of residual melanoma. Assessment/Plan Ms. Avalos is a 39 year old female with history of melanoma of upper back, s/p WLE and SLNB, recovering well but has developed a right axillary seroma -Seroma bilaterally in axilla. If continues to be bothersome, will have IR place seroma drain. -Discussed pathology results with her. Staging scans have been ordered. -Will discuss at Tumor Board in regard to adjuvant immunotherapy and call her with consensus recommendations after. -Follow up in 3 months with US of axilla. -Follow up [id number] with Dermatology -Sun protection recommendations discussed. Cancer Staging 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) Staging form: Melanoma of the Skin, AJCC 8th Edition - Pathologic stage from 04/03/2024: Stage IIIA (pT2a, pN1a, cM0) - Signed by Sanjuanita Rodarte MD on 04/13/2024 Sanjuanita Rodarte MD 04/14/2024 1622 documented in this encounter [facility] 04-14-2024 Note HNO ID: [id number] Author: SANJUANITA RODARTE MD Service: ? Author Type: Physician Type: Progress Notes Filed: 04/14/2024 16:23 Note Text: Sanjuanita Rodarte MD Surgical Oncology [address] [place] [address], [place] [address] Name: Adriane Avalos Age: [age] year old Sex: Adriane Avalos : 1985 Referring Provider: No ref. provider found Subjective CHIEF COMPLAINT: Postop Melanoma ONCOLOGIC HISTORY: 03/03/24: Melanoma of upper back 04/03/24: WLE + SLNB, path: [id number] HISTORY OF PRESENT ILLNESS: Ms. Avalos is a 39 year old female who presents for postop follow up for history of melanoma. Date of Surgery:04/03/2024 Anatomic Location: Upper back Breslow Depth: 1.5mm Ulceration: No Mitosis: 1/mm2 Waldo Lymph Node Biopsy: Yes Number of positive SLN: +1/2 Largest deposit: 0.1mm I personally reviewed Tobacco Allergies Meds Problems Med Hx Surg Hx Fam Hx Objective PHYSICAL EXAM: BP 116/72 Pulse 68 Resp 18 Ht 5' 6 (1.68m) Wt 150 lb (68.0kg) LMP 03/26/2023 BMI 24.22 kg/(m2). Physical Exam Constitutional: Appearance: Normal appearance. She is normal weight. HENT: Head: Normocephalic and atraumatic. Eyes: Extraocular Movements: Extraocular movements intact. Cardiovascular: Rate and Rhythm: Normal rate. Pulmonary: Effort: Pulmonary effort is normal. No respiratory distress. Breath sounds: No stridor. Abdominal: General: Abdomen is flat. Palpations: Abdomen is soft. Musculoskeletal: General: Normal range of motion. Cervical back: Normal range of motion. Lymphadenopathy: Comments: Bilateral axillary seromas, no drainage Skin: General: Skin is warm and dry. Comments: Incisions well healing Neurological: General: No focal deficit present. Mental Status: She is alert and oriented to person, place, and time. Mental status is at baseline. Psychiatric: Mood and Affect: Mood normal. Behavior: Behavior normal. Thought Content: Thought content normal. Judgment: Judgment normal. DATA: Pathology Report: FINAL DIAGNOSIS A. Waldo lymph node, right axillary, excision: - Metastatic melanoma in one (1) lymph node (02/25), (see comment). - The metastatic deposit is 0.1 mm. - No extranodal extension is present. B. Waldo lymph node, left axillary, excision: - One (1) benign lymph node (0), (see comment). C. Skin, back, wide local excision: - Skin with scar formation, consistent with prior surgical procedure. - There is a small junctional nevus near to scar, completely excised. - No evidence of residual melanoma. Assessment/Plan Ms. Avalos is a 39 year old female with history of melanoma of upper back, s/p WLE and SLNB, recovering well but has developed a right axillary seroma -Seroma bilaterally in axilla. If continues to be bothersome, will have IR place seroma drain. -Discussed pathology results with her. Staging scans have been ordered. -Will discuss at Tumor Board in regard to adjuvant immunotherapy and call her with consensus recommendations after. -Follow up in 3 months with US of axilla. -Follow up [id number] with Dermatology -Sun protection recommendations discussed. Cancer Staging 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) Staging form: Melanoma of the Skin, AJCC 8th Edition - Pathologic stage from 04/03/2024: Stage IIIA (pT2a, pN1a, cM0) - Signed by Sanjuanita Rodarte MD on 04/13/2024 Sanjuanita Rodarte MD 04/14/2024 [id number] [facility] 04-09-2024 Note HNO ID: [id number] Author: SANJUANITA RODARTE MD Service: ? Author Type: Physician Type: Progress Notes Filed: 04/09/2024 12:19 Note Text: Informed her of pathology results. Will obtain staging scans and present at tumor board for role of adjuvant immunotherapy. [facility] 04-09-2024 History of Present illness Narrative Informed her of pathology results. Will obtain staging scans and present at tumor board for role of adjuvant immunotherapy. documented in this encounter [facility] 04-03-2024 Note HNO ID: [id number] Author: REFUGIO SHIRLEY APRN.NEWS WIRE PHOTO OPERATOR Service: Nursing Author Type: Nurse Rail Car Welder Type: Anesthesia Procedure Notes Filed: 04/03/2024 14:12 Note Text: ANESTHESIOLOGY PROCEDURE NOTE Airway General Information Procedure Start Time/Medication Administration: 04/03/2024 1:52 PM Procedure End Time: 04/03/2024 1:52 PM Patient location during procedure: OR Timeout Performed Pre-procedure: timeout performed Consent Obtained: Yes Patient identity confirmed: arm band and patient Staffing NEWS WIRE PHOTO OPERATOR: Refugio Shirley APRN.NEWS WIRE PHOTO OPERATOR Performed by: CANDY Indications and Patient Condition Indications for airway management: anesthesia Preoxygenated: yes anesthesia circuit Patient position: sniffing Method: asleep Cricoid Pressure: No Manual In-Line Stabilization: No Difficult Mask: No Final Airway Details Final airway type: endotracheal airway Final Endotracheal Airway: ETT Cuffed: yes Successful intubation technique: direct laryngoscopy Endotracheal tube insertion site: oral Blade: Keith Blade size: #3 ETT size (mm): 7.0 Measured from: teeth Measurement (cm): 22 Placement verified by: capnometry Cormack-Lehane Classification: grade I - full view of glottis Number of attempts at approach: 1 Failed airway: no Unrecognized esophageal intubation: no Airway not difficult SIGNATURE: Refugio Shirley APRN.NEWS WIRE PHOTO OPERATOR PATIENT NAME: Adriane Avalos DATE: April 03, 2024 TIME: 2:12 PM CSN: [id number] [facility] 03-26-2024 History and physical note Images from the original note were not included. Sanjuanita Rodarte MD Surgical Oncology [address] [place] [address], [address] [place] [address] Name: Adriane Avalos Age: [age] year old Sex: Adriane Avalos : 1985 Referring Provider: Adriane Li PA-C Subjective CHIEF COMPLAINT: Melanoma ONCOLOGIC HISTORY: 03/03/24: Melanoma of upper back HISTORY OF PRESENT ILLNESS: Ms. Avalos is a 39 year old female who presents for initial evaluation for melanoma. New Skin Lesion: Yes Changing size/shape: No Bleeding: No Other concerning lesions/nodules: No Prior history of melanoma: No History of sunburns:Yes History of tanning bed use: Yes Family history of Melanoma: Yes Maternal grandmother Anatomic Location: Right upper medial back Breslow Depth: 1.5mm Ulceration: No Mitosis: 1/mm2 PAST MEDICAL HISTORY Diagnosis Date Anemia GERD (gastroesophageal reflux disease) History of pre-eclampsia in prior , currently kidney stones depression Pre-eclampsia or eclampsia superimposed on pre-existing hypertension, with delivery, with current complication PAST SURGICAL HISTORY Procedure Laterality Date IUD INSERTION (OUTCOMES MANAGER DEPT)_*FL 01/29/2008 Mirena IUD REMOVAL (OUTCOMES MANAGER DEPT)_*FL 06/28/2008 Mirena KIDNEY STONE SURGERY HX 09/2021 PAST SURGICAL HISTORY OF 2024 skin lesion biopsy, back Current Outpatient Medications on File Prior to Visit Medication Sig Norethindrone, Contraceptive, (CANDICE) 0.35 mg tablet Take 1 tablet by mouth once daily. albuterol HFA (PROAIR HFA) 90 mcg/actuation inhaler Inhale 2 Puffs as instructed every 4 hours as needed for Wheezing/Shortness of Breath. No current facility-administered medications on file prior to visit. ALLERGIES No Known Allergies FAMILY HISTORY Problem Relation Age of Onset Breast Cancer Maternal Grandmother 75 Melanoma Maternal Grandmother Diabetes Maternal Grandfather Heart Maternal Grandfather [place]- Social History Tobacco Use Smoking status: Every Day Current packs/day: 0.50 Average packs/day: 0.5 packs/day for 0.1 years Types: Cigarettes Start date: 06/02/2009 Last attempt to quit: 06/03/2015 Smokeless tobacco: Never Vaping Use Vaping status: Never Used Substance Use Topics Alcohol use: Not Currently Comment: OCCASIONALLY Drug use: Never I personally reviewed Tobacco Allergies Meds Problems Med Hx Surg Hx Fam Hx Objective PHYSICAL EXAM: Ht 5' 6 (1.68m) Wt 150 lb (68.0kg) LMP 03/31/2023 BMI 24.22 kg/(m^2). Physical Exam Constitutional: Appearance: Normal appearance. She is normal weight. HENT: Head: Normocephalic and atraumatic. Mouth/Throat: Mouth: Mucous membranes are moist. Eyes: Extraocular Movements: Extraocular movements intact. Cardiovascular: Rate and Rhythm: Normal rate. Pulmonary: Effort: Pulmonary effort is normal. No respiratory distress. Abdominal: General: Abdomen is flat. Palpations: Abdomen is soft. Musculoskeletal: General: Normal range of motion. Cervical back: Normal range of motion. Lymphadenopathy: Cervical: No cervical adenopathy. Right cervical: No superficial or posterior cervical adenopathy. Left cervical: No superficial or posterior cervical adenopathy. Upper Body: Right upper body: No supraclavicular or axillary adenopathy. Left upper body: No supraclavicular or axillary adenopathy. Lower Body: No right inguinal adenopathy. No left inguinal adenopathy. Skin: General: Skin is warm and dry. Comments: Biopsy site without residual pigmenation Neurological: General: No focal deficit present. Mental Status: She is alert and oriented to person, place, and time. Psychiatric: Mood and Affect: Mood normal. Behavior: Behavior normal. Thought Content: Thought content normal. Judgment: Judgment normal. Back melanoma biopsy site DATA: Pathology Report: 03/03/24: Right Medial Upper back Melanoma Histologic Type: superficial spreading Maximum Tumor thickness: 1.5mm Ulceration: Not identified Margins: Positive - deep focally involved by invasive melanoma and peripheral involved by melanoma in situ Mitotic index: 1/mm2 LVI: Not identified Microsatellitosis: not identified PNI: not identified Regeression: not identified Pathologic stage: pT2a Assessment/Plan Ms. Avalos is a 39 year old female with new melanoma of right upper back. Surgical Planning: WLE: Yes SLNB: Yes - Melanoma [place] risk calculator: 19% Adjacent tissue rearrangement, possible skin graft: No Plastics to close: No Cardiac History: no On ASA or Anticoagulants: no Pacemaker/defibrillator/implanted device: no Cancer Staging 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) Staging form: Melanoma of the Skin, AJCC 8th Edition - Clinical stage from 03/26/2024: Stage IB (cT2a, cN0, cM0) - Signed by Sanjuanita Rodarte MD on 03/26/2024 Sanjuanita Rodarte MD 03/26/2024 1151 [facility] 03-26-2024 History and physical note Images from the original note were not included. Sanjuanita Rodarte MD Surgical Oncology [address] [facility], [address] [place] [address] Name: Adriane Avalos Age: [age] year old Sex: Adriane Avalos : 1985 Referring Provider: Adriane Li PA-C Subjective CHIEF COMPLAINT: Melanoma ONCOLOGIC HISTORY: 03/03/24: Melanoma of upper back HISTORY OF PRESENT ILLNESS: Ms. Avalos is a 39 year old female who presents for initial evaluation for melanoma. New Skin Lesion: Yes Changing size/shape: No Bleeding: No Other concerning lesions/nodules: No Prior history of melanoma: No History of sunburns:Yes History of tanning bed use: Yes Family history of Melanoma: Yes Maternal grandmother Anatomic Location: Right upper medial back Breslow Depth: 1.5mm Ulceration: No Mitosis: 1/mm2 PAST MEDICAL HISTORY Diagnosis Date Anemia GERD (gastroesophageal reflux disease) History of pre-eclampsia in prior , currently kidney stones depression Pre-eclampsia or eclampsia superimposed on pre-existing hypertension, with delivery, with current complication PAST SURGICAL HISTORY Procedure Laterality Date IUD INSERTION (OUTCOMES MANAGER DEPT)_*FL 01/29/2008 Mirena IUD REMOVAL (OUTCOMES MANAGER DEPT)_*FL 06/28/2008 Mirena KIDNEY STONE SURGERY HX 09/2021 PAST SURGICAL HISTORY OF 2024 skin lesion biopsy, back Current Outpatient Medications on File Prior to Visit Medication Sig Norethindrone, Contraceptive, (CANDICE) 0.35 mg tablet Take 1 tablet by mouth once daily. albuterol HFA (PROAIR HFA) 90 mcg/actuation inhaler Inhale 2 Puffs as instructed every 4 hours as needed for Wheezing/Shortness of Breath. No current facility-administered medications on file prior to visit. ALLERGIES No Known Allergies FAMILY HISTORY Problem Relation Age of Onset Breast Cancer Maternal Grandmother 75 Melanoma Maternal Grandmother Diabetes Maternal Grandfather Heart Maternal Grandfather [place]- Social History Tobacco Use Smoking status: Every Day Current packs/day: 0.50 Average packs/day: 0.5 packs/day for 0.1 years Types: Cigarettes Start date: 06/02/2009 Last attempt to quit: 06/03/2015 Smokeless tobacco: Never Vaping Use Vaping status: Never Used Substance Use Topics Alcohol use: Not Currently Comment: OCCASIONALLY Drug use: Never I personally reviewed Tobacco Allergies Meds Problems Med Hx Surg Hx Fam Hx Objective PHYSICAL EXAM: Ht 5' 6 (1.68m) Wt 150 lb (68.0kg) LMP 03/31/2023 BMI 24.22 kg/(m^2). Physical Exam Constitutional: Appearance: Normal appearance. She is normal weight. HENT: Head: Normocephalic and atraumatic. Mouth/Throat: Mouth: Mucous membranes are moist. Eyes: Extraocular Movements: Extraocular movements intact. Cardiovascular: Rate and Rhythm: Normal rate. Pulmonary: Effort: Pulmonary effort is normal. No respiratory distress. Abdominal: General: Abdomen is flat. Palpations: Abdomen is soft. Musculoskeletal: General: Normal range of motion. Cervical back: Normal range of motion. Lymphadenopathy: Cervical: No cervical adenopathy. Right cervical: No superficial or posterior cervical adenopathy. Left cervical: No superficial or posterior cervical adenopathy. Upper Body: Right upper body: No supraclavicular or axillary adenopathy. Left upper body: No supraclavicular or axillary adenopathy. Lower Body: No right inguinal adenopathy. No left inguinal adenopathy. Skin: General: Skin is warm and dry. Comments: Biopsy site without residual pigmenation Neurological: General: No focal deficit present. Mental Status: She is alert and oriented to person, place, and time. Psychiatric: Mood and Affect: Mood normal. Behavior: Behavior normal. Thought Content: Thought content normal. Judgment: Judgment normal. Back melanoma biopsy site DATA: Pathology Report: 03/03/24: Right Medial Upper back Melanoma Histologic Type: superficial spreading Maximum Tumor thickness: 1.5mm Ulceration: Not identified Margins: Positive - deep focally involved by invasive melanoma and peripheral involved by melanoma in situ Mitotic index: 1/mm2 LVI: Not identified Microsatellitosis: not identified PNI: not identified Regeression: not identified Pathologic stage: pT2a Assessment/Plan Ms. Avalos is a 39 year old female with new melanoma of right upper back. Surgical Planning: WLE: Yes SLNB: Yes - Melanoma [place] risk calculator: 19% Adjacent tissue rearrangement, possible skin graft: No Plastics to close: No Cardiac History: no On ASA or Anticoagulants: no Pacemaker/defibrillator/implanted device: no Cancer Staging 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) Staging form: Melanoma of the Skin, AJCC 8th Edition - Clinical stage from 03/26/2024: Stage IB (cT2a, cN0, cM0) - Signed by Sanjuanita Rodarte MD on 03/26/2024 Sanjuanita Rodarte MD 03/26/2024 1151 documented in this encounter [facility] 09-20-2023 History of Present illness Narrative HISTORY & PHYSICAL EXAMINATION Patient Name: Adriane Avalos MR #: [id number] : 1985 Physicians: Dayan Galindo MD (Family); No ref. provider found (Referring) Chief Complaint/Reason for Visit: Hemorrhoids History of Present Illness: Adriane Avalos is a 38 y.o. y/o female past medical without history presenting for referral for complaints of hemorrhoids. She describes being seen multiple times over the last 10 years with complaints of perianal pain, itching and swelling. Has tried [id number] hemorrhoid products and creams. Denies any significant pain with bowel movements. Describes her bowel movements as being fairly soft. Complains of sensation of having to have a bowel movement and some tissue being external. History: I have reviewed the PMHx, PSHx, SHx, FHx in EMR with the patient during this encounter face to face and patient agrees with the documentation History reviewed. No pertinent past medical history. History reviewed. No pertinent surgical history. Family History Problem Relation Age of Onset Breast cancer Maternal Grandmother Social History Socioeconomic History Marital status: Single Tobacco Use Smoking status: Every Day Current packs/day: 0.50 Types: Cigarettes Smokeless tobacco: Never Substance and Sexual Activity Alcohol use: Yes Comment: occasional Drug use: Never Sexual activity: Yes Partners: Male Allergy Information: Patient has no known allergies. Home Medications: No current outpatient medications on file as of 09/20/2023. Review of Systems: Review of Systems Physical Examination: Vital Signs: BP 110/74 (BP Location: Left arm, Patient Position: Sitting, BP Cuff Size: Adult) Pulse 90 Temp 97.8 F (36.6 C) (Temporal) Resp 17 Ht 5' 6 Wt 63.5 kg (140 lb) SpO2 99% BMI 22.60 kg/m Physical Exam Physical Exam Constitutional: Appearance: Normal appearance. HENT: Mouth/Throat: Mouth: Mucous membranes are moist. Eyes: Pupils: Pupils are equal, round, and reactive to light. Cardiovascular: Rate and Rhythm: Normal rate. Pulmonary: Effort: Pulmonary effort is normal. Abdominal: General: There is no distension. Palpations: Abdomen is soft. Tenderness: There is no abdominal tenderness. Genitourinary: Comments: Prone jackknife: Small external tag present in the posterior near the midline. No significant external hemorrhoids. ROYA without significant palpable mass along the anal canal Anoscopy performed in all 4 quadrants in the posterior left quadrant there was an area of internal hemorrhoids with irritation. These were easily grasped and banded Musculoskeletal: General: Normal range of motion. Cervical back: Normal range of motion. Skin: General: Skin is warm. Coloration: Skin is not jaundiced. Neurological: General: No focal deficit present. Mental Status: She is alert. Psychiatric: Mood and Affect: Mood normal. Laboratory and Additional Data Reviewed: Laboratory 09/20/23 2:41 PM Laboratory Lab Results Component Value Date WBC 10.30 03/17/2022 RBC 4.98 03/17/2022 HGB 15.2 03/17/2022 HCT 46.5 (H) 03/17/2022 PLT 330 03/17/2022 No results found for: AMYLASE No results found for: LIPASE Assessment and Plan: Adriane Avalos is a 38 y.o. y/o female presenting for internal hemorrhoids There is no problem list on file for this patient. Plan: Internal hemorrhoid banding x 2 Instructed patient to keep stool soft and easy to pass with daily MiraLAX or stool softeners Educated patient that bleeding while bands are in place is normal Patient can follow-up in my office if any problems arise or concern for recurrent bleeding Total time 30 minutes, greater than 50% spent [id number] with the patient obtaining history and performing exam explained the procedure obtaining consent and coordinating care documented in this encounter [facility] 09-09-2023 Emergency department Note Chief Complaint Patient presents with Abdominal Pain Amb to ED with c/o RLQ pain x 2 hrs with nausea. Denies any fever, V/D, or urinary s/s. Patient History Past Medical History: Diagnosis Date Kidney stones Past Surgical History: Procedure Laterality Date CT ANGIO NECK 03/17/2022 CT ANGIO NECK 03/17/2022 OTHER SURGICAL HISTORY 08/18/2019 No history of surgery No family history on file. Social History Social History Narrative Not on file No Known Allergies PMH: Reviewed PSH: Reviewed Social History: Reviewed. Allergies reviewed. HPI: Adriane Avalos is a 38 y.o. female who presents to the ED today unaccompanied with complaints of right lower quadrant abdominal pain x 2 hours. Started suddenly. No radiation of her pain. Nauseated, no vomiting or fevers. Denies diarrhea. Did not take any for pain prior to arrival. Last menstrual period started 4 days ago. Has history of kidney stone and ovarian cyst. REVIEW OF SYSTEMS: All other systems reviewed and negative except as listed in HPI. PHYSICAL EXAM: GENERAL: Vitals noted, no distress. Alert and oriented x 3. Non-toxic. EENT: TMs clear. Posterior oropharynx unremarkable. EOMI, no nystagmus noted. NECK: Supple. No masses. No midline tenderness. No meningeal signs. CARDIAC: Regular rate, rhythm. No murmurs rubs or gallops. No JVD. PULMONARY: Lungs clear and equal bilaterally. No wheezes rales or rhonchi. No respiratory distress. ABDOMEN: Soft, nondistended, and localized tenderness to the RLQ. No peritoneal signs. Bowel sounds are present and normoactive in all 4 quadrants. No pulsatile masses. No CVA tenderness. EXTREMITIES: No peripheral edema. SKIN: No rash. Warm, dry, and intact. NEURO: No focal neurologic deficits. Labs Reviewed URINALYSIS WITH REFLEX CULTURE AND MICROSCOPIC - Abnormal Result Value Color, Urine Light-Yellow Appearance, Urine Clear Specific [place], Urine 1.012 pH, Urine 5.5 Protein, Urine NEGATIVE Glucose, Urine Normal Blood, Urine 0.1 (1+) (*) Ketones, Urine NEGATIVE Bilirubin, Urine NEGATIVE Urobilinogen, Urine Normal Nitrite, Urine NEGATIVE Leukocyte Esterase, Urine NEGATIVE URINALYSIS MICROSCOPIC WITH REFLEX CULTURE - Abnormal WBC, Urine 1-5 RBC, Urine 6-10 (*) Squamous Epithelial Cells, Urine 1-9 (SPARSE) Bacteria, Urine 1+ (*) Mucus, Urine 2+ LIPASE - Normal Lipase 20 Narrative: Venipuncture immediately after or during the administration of Metamizole may lead to falsely low results. Testing should be performed immediately prior to Metamizole dosing. LACTATE - Normal Lactate 1.1 Narrative: Venipuncture immediately after or during the administration of Metamizole may lead to falsely low results. Testing should be performed immediately prior to Metamizole dosing. COMPREHENSIVE METABOLIC PANEL - Normal Glucose 96 Sodium 138 Potassium 3.7 Chloride 107 Bicarbonate 23 Anion Gap 12 Urea Nitrogen 13 Creatinine 0.76 eGFR >90 Calcium 8.9 Albumin 4.3 Alkaline Phosphatase 52 Total Protein 6.8 AST 10 Bilirubin, Total 0.5 ALT 10 HCG, URINE, QUALITATIVE - Normal HCG, Urine NEGATIVE CBC WITH AUTO DIFFERENTIAL WBC 10.4 nRBC 0.0 RBC 4.61 Hemoglobin 13.8 Hematocrit 42.0 MCV 91 MCH 29.9 MCHC 32.9 RDW 13.6 Platelets 348 Neutrophils % 49.3 Immature Granulocytes %, Automated 0.3 Lymphocytes % 37.2 Monocytes % 7.6 Eosinophils % 5.1 Basophils % 0.5 Neutrophils Absolute 5.11 Immature Granulocytes Absolute, Automated 0.03 Lymphocytes Absolute 3.86 Monocytes Absolute 0.79 Eosinophils Absolute 0.53 Basophils Absolute 0.05 URINALYSIS WITH REFLEX CULTURE AND MICROSCOPIC Narrative: The following orders were created for panel order Urinalysis with Reflex Culture and Microscopic. Procedure Abnormality Status --------- ------ Urinalysis with Reflex Cu...[[id number]] Abnormal Final result Extra Urine Card Tube[[id number]] Please view results for these tests on the individual orders. EXTRA URINE CARD TUBE CT abdomen pelvis w IV contrast Final Result 2-3 mm obstructing calculus at the right ureterovesical junction with moderate right hydroureteronephrosis. Nonobstructing 4 mm calculus in lower pole left kidney. Marked periportal edema. Correlation with patient's history for any known liver disease or other cause is recommended if not already evaluated.. Signed by Nick Luz MD Medical Decision Making ED COURSE: This patient was seen and examined by myself independently. IV established. Labs are obtained and noted above. She is hydrated with normal saline 1 L bolus. Medicated with Toradol and Zofran IV, she is driving today. After coming back from [place], her pain worsened, she is requesting additional pain medication. Her mom is going for a ride home. She is given morphine. This improves her pain. CT of the abdomen pelvis with IV contrast, interpreted by radiology, shows 2 to 3 mm obstructing calculus at the right UVJ with moderate right hydroureteronephrosis. Nonobstructing 4 mm calculus in the lower pole left kidney. Marked periportal edema. Patient is made aware of these findings. Her liver function tests are normal. She has no issues with her liver that she is aware of. Recommend that she follow with her primary care physician to reevaluate this as it is a redemonstration on the CT compared to previous. Offered admission for pain control and possible stenting with urology but the patient wishes to be discharged home to follow-up outpatient with urology, Dr. Hinds. Given to go packs of Percocet and Zofran for tonight. Prescriptions for Percocet, Zofran, Toradol, Flomax sent to her pharmacy of choice for pickup tomorrow. Recommend return to ED for any new or worsening symptoms. She is discharged home in stable condition with computer instructions given. Differential Diagnoses Considered: Appendicitis, colitis, pancreatitis, cholecystitis, hepatitis, kidney stone, UTI, pyelonephritis Chronic Medical Conditions Significantly Affecting Care: see above External Records Reviewed: I reviewed recent and relevant outside records including: PCP notes, prior discharge summary, previous radiologic studies Diagnostic testing considered: blood, urine, CT abd/pelv Escalation of Care: Appropriate for outpatient management, considered observation/admission, patient/family declined Prescription Drug Consideration: Percocet, Zofran, Toradol, Flomax DIAGNOSTIC IMPRESSION: #1 kidney stone right side #2 periportal edema THAO Garcia 09/09/231950 documented in this encounter [facility] Work Phone: 09-09-2023 Physician Emergency department Note Chief Complaint Patient presents with Abdominal Pain Amb to ED with c/o RLQ pain x 2 hrs with nausea. Denies any fever, V/D, or urinary s/s. Patient History Past Medical History: Diagnosis Date Kidney stones Past Surgical History: Procedure Laterality Date CT ANGIO NECK 03/17/2022 CT ANGIO NECK 03/17/2022 OTHER SURGICAL HISTORY 08/18/2019 No history of surgery No family history on file. Social History Social History Narrative Not on file No Known Allergies PMH: Reviewed PSH: Reviewed Social History: Reviewed. Allergies reviewed. HPI: Adriane Avalos is a 38 y.o. female who presents to the ED today unaccompanied with complaints of right lower quadrant abdominal pain x 2 hours. Started suddenly. No radiation of her pain. Nauseated, no vomiting or fevers. Denies diarrhea. Did not take any for pain prior to arrival. Last menstrual period started 4 days ago. Has history of kidney stone and ovarian cyst. REVIEW OF SYSTEMS: All other systems reviewed and negative except as listed in HPI. PHYSICAL EXAM: GENERAL: Vitals noted, no distress. Alert and oriented x 3. Non-toxic. EENT: TMs clear. Posterior oropharynx unremarkable. EOMI, no nystagmus noted. NECK: Supple. No masses. No midline tenderness. No meningeal signs. CARDIAC: Regular rate, rhythm. No murmurs rubs or gallops. No JVD. PULMONARY: Lungs clear and equal bilaterally. No wheezes rales or rhonchi. No respiratory distress. ABDOMEN: Soft, nondistended, and localized tenderness to the RLQ. No peritoneal signs. Bowel sounds are present and normoactive in all 4 quadrants. No pulsatile masses. No CVA tenderness. EXTREMITIES: No peripheral edema. SKIN: No rash. Warm, dry, and intact. NEURO: No focal neurologic deficits. Labs Reviewed URINALYSIS WITH REFLEX CULTURE AND MICROSCOPIC - Abnormal Result Value Color, Urine Light-Yellow Appearance, Urine Clear Specific [place], Urine 1.012 pH, Urine 5.5 Protein, Urine NEGATIVE Glucose, Urine Normal Blood, Urine 0.1 (1+) (*) Ketones, Urine NEGATIVE Bilirubin, Urine NEGATIVE Urobilinogen, Urine Normal Nitrite, Urine NEGATIVE Leukocyte Esterase, Urine NEGATIVE URINALYSIS MICROSCOPIC WITH REFLEX CULTURE - Abnormal WBC, Urine 1-5 RBC, Urine 6-10 (*) Squamous Epithelial Cells, Urine 1-9 (SPARSE) Bacteria, Urine 1+ (*) Mucus, Urine 2+ LIPASE - Normal Lipase 20 Narrative: Venipuncture immediately after or during the administration of Metamizole may lead to falsely low results. Testing should be performed immediately prior to Metamizole dosing. LACTATE - Normal Lactate 1.1 Narrative: Venipuncture immediately after or during the administration of Metamizole may lead to falsely low results. Testing should be performed immediately prior to Metamizole dosing. COMPREHENSIVE METABOLIC PANEL - Normal Glucose 96 Sodium 138 Potassium 3.7 Chloride 107 Bicarbonate 23 Anion Gap 12 Urea Nitrogen 13 Creatinine 0.76 eGFR >90 Calcium 8.9 Albumin 4.3 Alkaline Phosphatase 52 Total Protein 6.8 AST 10 Bilirubin, Total 0.5 ALT 10 HCG, URINE, QUALITATIVE - Normal HCG, Urine NEGATIVE CBC WITH AUTO DIFFERENTIAL WBC 10.4 nRBC 0.0 RBC 4.61 Hemoglobin 13.8 Hematocrit 42.0 MCV 91 MCH 29.9 MCHC 32.9 RDW 13.6 Platelets 348 Neutrophils % 49.3 Immature Granulocytes %, Automated 0.3 Lymphocytes % 37.2 Monocytes % 7.6 Eosinophils % 5.1 Basophils % 0.5 Neutrophils Absolute 5.11 Immature Granulocytes Absolute, Automated 0.03 Lymphocytes Absolute 3.86 Monocytes Absolute 0.79 Eosinophils Absolute 0.53 Basophils Absolute 0.05 URINALYSIS WITH REFLEX CULTURE AND MICROSCOPIC Narrative: The following orders were created for panel order Urinalysis with Reflex Culture and Microscopic. Procedure Abnormality Status --------- ------ Urinalysis with Reflex Cu...[[id number]] Abnormal Final result Extra Urine Card Tube[[id number]] Please view results for these tests on the individual orders. EXTRA URINE CARD TUBE CT abdomen pelvis w IV contrast Final Result 2-3 mm obstructing calculus at the right ureterovesical junction with moderate right hydroureteronephrosis. Nonobstructing 4 mm calculus in lower pole left kidney. Marked periportal edema. Correlation with patient's history for any known liver disease or other cause is recommended if not already evaluated.. Signed by Nick Luz MD Medical Decision Making ED COURSE: This patient was seen and examined by myself independently. IV established. Labs are obtained and noted above. She is hydrated with normal saline 1 L bolus. Medicated with Toradol and Zofran IV, she is driving today. After coming back from CT, her pain worsened, she is requesting additional pain medication. Her mom is going for a ride home. She is given morphine. This improves her pain. CT of the abdomen pelvis with IV contrast, interpreted by radiology, shows 2 to 3 mm obstructing calculus at the right UVJ with moderate right hydroureteronephrosis. Nonobstructing 4 mm calculus in the lower pole left kidney. Marked periportal edema. Patient is made aware of these findings. Her liver function tests are normal. She has no issues with her liver that she is aware of. Recommend that she follow with her primary care physician to reevaluate this as it is a redemonstration on the CT compared to previous. Offered admission for pain control and possible stenting with urology but the patient wishes to be discharged home to follow-up outpatient with urology, Dr. Hinds. Given to go packs of Percocet and Zofran for tonight. Prescriptions for Percocet, Zofran, Toradol, Flomax sent to her pharmacy of choice for pickup tomorrow. Recommend return to ED for any new or worsening symptoms. She is discharged home in stable condition with computer instructions given. Differential Diagnoses Considered: Appendicitis, colitis, pancreatitis, cholecystitis, hepatitis, kidney stone, UTI, pyelonephritis Chronic Medical Conditions Significantly Affecting Care: see above External Records Reviewed: I reviewed recent and relevant outside records including: PCP notes, prior discharge summary, previous radiologic studies Diagnostic testing considered: blood, urine, CT abd/pelv Escalation of Care: Appropriate for outpatient management, considered observation/admission, patient/family declined Prescription Drug Consideration: Percocet, Zofran, Toradol, Flomax DIAGNOSTIC IMPRESSION: #1 kidney stone right side #2 periportal edema THAO Garcia 09/09/231950 [facility] Work Phone: 04-18-2023 History of Present illness Narrative 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 Adriane is a 38 year old who presents for an annual gynecologic exam with complaints, stress incontinence . Going thru a divorce Menses: cycles every 25-30 days and 7 days of flow. Contraception: None HPV vaccine: No Last Pap: 05/20/2018 normal HPV: 05/20/2018 negative History of abnormal pap: No Last mammogram: 2019normal Sexually active: Yes Patient concerns for STD exposure: Yes: partner unfaithful Pain with intercourse: No Postcoital bleeding: No OB History T2 L3 SAB2 IAB0 Ectopic0 Multiple0 Live Births3 Dean Of Admissions History LMP: 04/16/2018, Having periods Age at Menarche: Age at First : Age at Menopause: Dean Of Admissions History Comments: Sexual Activity: Yes; Male Contraception: Vasectomy PAST MEDICAL HISTORY Diagnosis Date Anemia GERD (gastroesophageal reflux disease) History of pre-eclampsia in prior , currently kidney stones depression Pre-eclampsia or eclampsia superimposed on pre-existing hypertension, with delivery, with current complication PAST SURGICAL HISTORY Procedure Laterality Date IUD INSERTION (OUTCOMES MANAGER DEPT)_*PA 01/29/2008 Mirena IUD REMOVAL (OUTCOMES MANAGER DEPT)_*PA 06/28/2008 Mirena FAMILY HISTORY Problem Relation Age of Onset Breast Cancer Maternal Grandmother 75 Diabetes Maternal Grandfather Heart Maternal Grandfather [place]- SOCIAL HISTORY Social History Tobacco Use Smoking status: Former Years: 6 Types: Cigarettes Quit date: 06/03/2015 Years since quittin.8 Smokeless tobacco: Never Substance Use Topics Alcohol use: Yes Comment: OCCASIONALLY , not while Drug use: No REVIEW OF SYSTEMS Abdomen: No abdominal pain, nausea, vomiting, diarrhea, or constipation. No bloating, early satiety, indigestion, or increased flatulence. Bladder: No dysuria, gross hematuria, urinary frequency, urinary urgency, +stress incontinence. Breast: No breast lumps, nipple d/c, overlying skin changes, redness or skin retraction. Allergies and current medication updated:Yes EXAM: LMP 04/16/2018 GENERAL: pleasant, female in no apparent distress HEENT: Normocephalic, atraumatic, mucus membranes moist, and no lesions NECK: Supple, full range of motion, no adenopathy, and thyroid normal DERMATOLOGY: Normal, without lesions, non-icteric, and non-hirsute BREAST: soft, non-tender, symmetric, no dominant mass, normal nipple-areolar complex, no lymphadenopathy, and no nipple discharge CHEST: Normal inspiratory effort ABDOMEN: soft, non-tender, and no masses PELVIC: external genitalia normal, normal Bartholin's glands, urethra, Haven's glands, no vulvar lesions, no cervical lesions, good vaginal support, physiologic discharge present, normal appearing perineal body and perianal region BIMANUAL: uterus normal size, shape and consistency, no adnexal masses, and non-tender RECTOVAGINAL: deferred. NEURO: alert and oriented x3,exam grossly non-focal EXTREMITIES: normal ASSESSMENT/PLAN: 1) Health maintenance: Pap done with HPV. Mammogram starting age 40. Nutrition, exercise and routine health maintenance exams reviewed. Calcium/Vitamin D supplementation information provided. 2) Contraception: none. Contraceptive options reviewed and information provided. 3) STD screening: Accepts full STD screeening including HIV, Syphilis and Hepatitis. 4) Follow up one year or sooner as needed Lsia Carney APRN.AURY documented in this encounter [facility] 11-29-2021 Hospital Discharge instructions Provider/Service: Fernando SinghLocation: [address] Number: [phone] [facility] 09-14-2021 Note History & Physical R eviewed: /Lactating: Are You no (1) Are You Currently Breastfeedingno (1) I have reviewed the History and Physical dated: 14-Sep-2021 History and Physical reviewed and relevant findings noted. Patient examined to review pertinent physical findings.: No significant changes Home Medications Reviewed: no changes noted Allergies Reviewed: no changes noted ERAS (Enhanced Recovery After Surgery): ERAS Patient: no Consent: COVID-19 Consent: COVID-19 Risk ConsentSurgeon has reviewed doshi risks related to the risk of brandon COVID-19 and if they contract COVID-19 what the risks are. Electronic Signatures: Azael Hinds) (Signed 14-Sep-2021 12:24) Authored: History & Physical Reviewed, ERAS, Consent, Note Completion Last Updated: 14-Sep-2021 12:24 by Azael Hinds) References: 1. Data Referenced From Triage - ED 14-Sep-2021 08:51 [facility] 09-14-2021 History and physical note History & Physical Reviewed: /Lactating: Are You no (1) Are You Currently no (1) I have reviewed the History and Physical dated: 14-Sep-2021 History and Physical reviewed and relevant findings noted. Patient examined to review pertinent physical findings.: No significant changes Home Medications Reviewed: no changes noted Allergies Reviewed: no changes noted ERAS (Enhanced Recovery After Surgery): ERAS Patient: no Consent: COVID-19 Consent: COVID-19 Risk Consent Surgeon has reviewed doshi risks related to the risk of brandon COVID-19 and if they contract COVID-19 what the risks are. Electronic Signatures: Azael Hinds) (Signed 14-Sep-2021 12:24) Authored: History & Physical Reviewed, ERAS, Consent, Note Completion Last Updated: 14-Sep-2021 12:24 by Azael Hinds) References: 1. Data Referenced From Triage - ED 14-Sep-2021 08:51 T [facility] Work Phone: 09-14-2021 History and physical note History & Physical Reviewed: /Lactating: Are You no (1) Are You Currently no (1) I have reviewed the History and Physical dated: 14-Sep-2021 History and Physical reviewed and relevant findings noted. Patient examined to review pertinent physical findings.: No significant changes Home Medications Reviewed: no changes noted Allergies Reviewed: no changes noted ERAS (Enhanced Recovery After Surgery): ERAS Patient: no Consent: COVID-19 Consent: COVID-19 Risk Consent Surgeon has reviewed doshi risks related to the risk of brandon COVID-19 and if they contract COVID-19 what the risks are. Electronic Signatures: Azael Hinds) (Signed 14-Sep-2021 12:24) Authored: History & Physical Reviewed, ERAS, Consent, Note Completion Last Updated: 14-Sep-2021 12:24 by Azael Hinds) References: 1. Data Referenced From Triage - ED 14-Sep-2021 08:51 documented in this encounter [facility] Work Phone: 05-02-2021 Instructions Summer Milner CNP - 05/02/2021 7:57 PM EST Thank you for choosing [facility] for your healthcare needs today. Schedule follow up with your doctor NESHA. ER for symptoms of concern. Please consider smoking cessation. documented in this encounter [facility] 05-02-2021 History of Present illness Narrative Images from the original note were not included. Patient Name: [facility] Location: Adriane Avalos [address] [place] [id number] Date Of : Date Of Visit: 1985 05/02/2021 MRN# Provider: [id number] Summer Milner CNP Chief Complaint Patient presents with Rash Pt states she had this issue 2 weeks ago and was seen and provider told her he thought it was hookworms from traveling, was given emverm with failed results, states there are worms in her nose, daughter was treated for pinworms 2 weeks ago Assessment & Plan 1. Rash and nonspecific skin eruption albendazole (ALBENZA) 200 mg tablet DISCONTINUED: albendazole (ALBENZA) 200 mg tablet possible cutaneous larva migrans 2. Cigarette smoker No follow-ups on file. Medical Decision Making Non-toxic in NAD with report of worms in her nose. Child treated for pinworms 2 weeks ago. Client has a rash to the lower leg very light erythema in linear appearance and she is concerned this is a worm. She was in [place] 2 weeks ago. Rash is not the typical presentation for cutaneous larva migrans. She has had stool testing but has not had the results given to her at the time of visit. States she had a tele-health follow up today and she slept through it. Smoker. Additional Clinical Comments Encouraged smoking cessation and follow up with her doctor. See DIMPLE Subjective 36 y.o. female presents with Rash (Pt states she had this issue 2 weeks ago and was seen and provider told her he thought it was hookworms from traveling, was given emverm with failed results, states there are worms in her nose, daughter was treated for pinworms 2 weeks ago) Client states she has worms in her nose. Daughter treated for pinworms. States she was tested and treated herself 2 weeks ago and her symptoms improved. She traveled to [place] in February. Symptoms began in March. She has a linear red rash to the calf and several small lumps behind her ears. Partner also with concern for worms. Review Of Systems Review of Systems Skin: Positive for rash. Red linear rash on the calf. Medical History History reviewed. No pertinent past medical history. History reviewed. No pertinent surgical history. There is no problem list on file for this patient. Social History Social History Tobacco Use Smoking status: Current Every Day Smoker Packs/day: 0.50 Smokeless tobacco: Never Used Substance Use Topics Alcohol use: Yes Comment: occasional Drug use: Never Family History No family history on file. Objective Physical Exam BP 133/87 (BP Location: Left arm, Patient Position: Sitting, BP Cuff Size: Adult) Pulse 87 Temp 97.2 F (36.2 C) (Infrared) Resp 16 Ht 5' 6 Wt 65.8 kg (145 lb) SpO2 100% BMI 23.40 kg/m Vision/Hearing Exam:No exam data present Physical Exam Vitals and nursing note reviewed. Constitutional: General: She is not in acute distress. Appearance: Normal appearance. She is not ill-appearing, toxic-appearing or diaphoretic. HENT: Head: Normocephalic and atraumatic. Cardiovascular: Rate and Rhythm: Normal rate. Pulmonary: Effort: Pulmonary effort is normal. Skin: General: Skin is warm and dry. Comments: Light erythematous linear rash on the lower legs, light erythema of the ankles. Neurological: Mental Status: She is alert and oriented to person, place, and time. Psychiatric: Mood and Affect: Mood normal. Procedure Notes Procedures Results No results found for this or any previous visit (from the past 168 hour(s)). No orders to display Orders Placed This Visit No orders of the defined types were placed in this encounter. Medication List At End Of Visit Current Outpatient Medications Medication Sig Dispense Refill albendazole (ALBENZA) 200 mg tablet Take 2 (two) tablets (400 mg total) by mouth daily for 3 days . 6 tablet 0 No current facility-administered medications for this visit. Patient Instructions Thank you for choosing [facility] for your healthcare needs today. Schedule follow up with your doctor NESHA. ER for symptoms of concern. Please consider smoking cessation. documented in this encounter [facility] 05-02-2021 History of Present illness Narrative patient is here for follow up regarding concerns about parasite infestation. Patient reports that after the previous course of mebendazole her symptoms significantly improved. However in the last few days she noticed more worms coming out of her nose and around her lips. She also reports that her has started having similar symptoms. She also reports that she has pain in her back chest wall in the right upper chest. Hurts intermittently. Worse with pressure on that area. Patient is concerned that the parasite may exist other organs such as lungs, heart, brain or eyes. She reports that she went to the urgent care yesterday and was started on another course of antiparasitic treatment. Unsure what the medication was.Plan:Her stool for parasites and ova did not show any evidence of parasites. Discussed the low likelihood of parasitic infestation in her brain or eyes at this time. Ordering another on parasite as the patient is concerned that there is infestation in her nose. She will bring sample. Collection container is provided. 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 X-rays ordered for further evaluation of any possible pulmonary condition.Follow-up in 2 weeks -[facility] Work Phone: 04-16-2021 History of Present illness Narrative Adriane is a 36-year-old female here for evaluation of skin lesions and worms noticed on her skin. Patient reports that 2 days ago she started to notice small lesions on her skiN which were itchy. When she scratched them she noticed that a small worm was present inside the skin lesion. Then she eventually noticed any skin lesions and noticed similar worms expressed from the wounds. She traveled to [place] about a month ago. Other than that did not have any other travel. Her daughter was treated recently for pinworms. Along with the daughter she was also treated for pinworm with 1 dose of parenteral pamoate, despite not having any symptoms because of her close proximity. She is in significant amount of distress. She has history of anxiety and she is not able to control her anxiety at this point. She has not rested for the last 16-18 hours due to the distress from her skin lesions. Previously has used alprazolam to help her anxiety pain..Plan:Unfortunately unable to examine due to the nature of the visit. Seen the videos over the phone which are not very clear but can notice possibly some minute worm in the wounds. We will treat with 3 days course of mebendazole for possible hookworm infestation. We will sign the parasite for further evaluation from pathology. Recommended to collect clean samples.Given her acute anxiety with the current skin lesions starting alprazolam at a low dose to be taken as needed up to 3 times per day.Follow-up in 1 to 2 weeks. [facility] Work Phone: 05-27-2015 History of Past i llness Narrative Problem Noted Date Diagnosed Date Resolved Date Encounter for supervision of normal in multigravida in first trimester 05/27/201505/10 Two previous miscarriages, a ffecting care of mother in second trimester, antepartum 05/19/2015 0 05/10/2017 Overview: 05/19/2015 Pt has a history of 2 miscarriages. She denies any bleeding. Notes occasional mild cramping that she believes is round ligament pain. Pt to call/come in of she develops any bleeding, pain worsens or PRN problems. TKRN Tobacco smoking complicating in first trimester 05/19/2015 05/10/2017 Overview: Quit smoking [facility] 05/19/2015 Pt smokes 4-5 cigarettes a day, down from 1/2 ppd. Discussed risks of smoking during . Advised pt to quit.TKRN Patient requested diagnostic testing 05/19/2015 05/10/2017 Overview: 05/19/2015 Pt requests nuchal ultrasound. TKRN Anemia, unspecified 10/01/2007 07/20/19 10 Abdominal pain, generalized 10/01/2007 07/19/2009 Threatened premature labor, antepartum(644.03) 09/03/2007 11/11/2007 Supervision of other normal 06/30/2007 07/19/2009 documented as of this encounter (statuses as of 04/19/2023) [facility] [place] [facility]* Diagnosis Rash and nonspecific skin eruption- Primary Rash and other nonspecific skin eruption Cigarette smoker Tobacco use disorder [facility] [place] [facility]* Diagnosis Hydronephrosis with renal and ureteral calculous obstruction- Primary Contact with and (suspected) exposure to covid-19 Nicotine dependence, unspecified, uncomplicated Calculus of ureter Right lower quadrant pain documented in this encounter [facility] Work Phone: Evaluation note* Diagnosis Encounter for gynecological examination (general) (routine) without abnormal findings- Primary Screening for cervical cancer Screening for malignant neoplasm of the cervix Encounter for screening for human papillomavirus (HPV) Special screening examination for human papillomavirus (HPV) Screening for STDs (sexually transmitted diseases) Screening examination for venereal disease documented in this encounter [facility] [place] [facility]* Diagnosis Internal hemorrhoids- Primary Internal hemorrhoids without mention of complication documented in this encounter [facility] note* Diagnosis Kidney stone on right side- Primary documented in this encounter [facility] Work Phone: Evaluation note* Diagnosis 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)- Primary Malignant melanoma of back (HCC) Malignant melanoma of skin of trunk, except scrotum [facility] Diagnosis Malignant melanoma of back (HCC)- Primary Malignant melanoma of skin of trunk, except scrotum Malignant melanoma of back (HCC) Malignant melanoma of skin of trunk, except scrotum documented [facility] [place] [facility] Diagnosis 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)- Primary [facility] [place] [facility] Diagnosis 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)- Primary [facility] [place] [facility] Diagnosis 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)- Primary [facility] Encounter for gynecological examination (general) (routine) without abnormal findings- Primary Screen for STD (sexually transmitted disease) Screening examination for venereal disease Encounter for insertion of intrauterine contraceptive device (IUD) [facility] Diagnosis 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) [facility] [place] [facility] Diagnosis 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) documented [facility] this [facility] [place] [facility]* Diagnosis Malignant melanoma of back (HCC)- Primary Malignant melanoma of skin of trunk, except scrotum [facility] [place] [facility]* Diagnosis 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)- Primary [facility] [place] [facility]* Diagnosis 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)- Primary [facility] Diagnosis Encounter for follow-up surveillance of melanoma- Primary Unspecified follow-up examination 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) Malignant melanoma of skin (HCC) Melanoma of skin, site unspecified 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) [facility] [place] [facility]* Diagnosis 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) [facility] [place] [facility]* Diagnosis Family history of melanoma- Primary Family history of other specified malignant neoplasm Malignant melanoma of skin (HCC) Melanoma of skin, site unspecified Family history of breast cancer Family history of malignant neoplasm of breast [facility] [place] [facility]* Diagnosis Encounter for supervision of high risk in first trimester, antepartum (HCC)- Primary 9 weeks gestation of (HCC) state, incidental with uncertain dates in first trimester (HCC) Multigravida of advanced maternal age in first trimester (HCC) History of pre-eclampsia Personal history of other genital system and obstetric disorders History of melanoma Personal history of malignant melanoma of skin History of delivery CHERI (generalized anxiety disorder) Generalized anxiety disorder History of positive PPD, 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) History of depression Heartburn during in first trimester (HCC) [facility] [place] [facility]* Diagnosis 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) [facility] [place] [facility]* Diagnosis 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)- Primary documented [facility] this [facility] [place] [facility]* Diagnosis 12 weeks gestation of (HCC)- Primary state, incidental History of delivery History of pre-eclampsia Personal history of other genital system and obstetric disorders Nausea/vomiting in ([facility]) Unspecified vomiting of , unspecified as to episode of care documented in this encounter [facility] [place] [facility]* Diagnosis Encounter for screening for malformation using ultrasound ([facility])- Primary 12 weeks gestation of ([facility]) state, incidental Multigravida of advanced maternal age in first trimester ([facility]) documented in this encounter [facility] [place] [facility]* Diagnosis 15 weeks gestation of ([facility])- Primary state, incidental CHERI (generalized anxiety disorder) Generalized anxiety disorder Multigravida of advanced maternal age in second trimester ([facility]) Encounter for supervision of high risk in second trimester, antepartum ([facility]) Constipation during in second trimester ([facility]) documented in this encounter [facility] [place] [facility]* Diagnosis Malignant melanoma of skin ([facility])- Primary Melanoma of skin, site unspecified Family history of breast cancer Family history of malignant neoplasm of breast Family history of melanoma Family history of other specified malignant neoplasm documented in this encounter [facility] [place] [facility]* Diagnosis screening for malformation using ultrasonics ([facility])- Primary Encounter for routine screening for malformation using ultrasonics Multigravida of advanced maternal age in second trimester ([facility]) 19 weeks gestation of ([facility]) state, incidental documented in this encounter [facility] [place] [facility]* Diagnosis History of pre-eclampsia- Primary Personal history of other genital system and obstetric disorders History of melanoma Personal history of malignant melanoma of skin 19 weeks gestation of ([facility]) state, incidental documented in this encounter [facility] [place] [facility]* Diagnosis Encounter for supervision of high risk in second trimester, antepartum ([facility])- Primary 19 weeks gestation of ([facility]) state, incidental Advanced maternal age in multigravida, second trimester ([facility]) documented in this encounter [facility] note* Diagnosis Onset Date Resolution Status Admit Date 27 weeks gestation of acut e December 06, 2024 11:23pm Uterine contractions acute Octo 2024 11:23pm [facility] Work Phone: History and physical note [facility] Medical Records Department [address] [place] [address] OB Triage Physician Note 12/14/242103 MR#: [id number] Acct: [id number] Name: ADRIANE CARD Rep #:[id number] : 1985 39 From: Lisa Chapman DO PCP: Care Physician,No Primary Status :DEP CLI Y Location: [facility] HPI - General General Date of Admission: 12/06/24 Date of Service: 12/06/24 Chief Complaint: r/o labor HPI Narrative ADRIANE CARD, is a 39 F who presents with contractions. No vb, lof. Good FM. Patient states she had a 3D ultrasound done at an outside clinic to get picturesof the baby, and she searched a picture online and was concerned about cervical funneling. She would like some reassurance. PFSH PFSH Home Medications ?Medication ?Instructions ?Recorded ?Last Taken ?Type vits,calcium no.78-iron 1 tab PO DAILY Unknown History fumarate-folic acid 29 mg-1 mg tablet (Prenatabs FA) sertraline 100 mg tablet (Zoloft) 100 mg PO DAILY 11/25 04/21 Unknown History Allergy/AdvReac Type Severity Reaction Status Date / Time No Known Allergies Allergy Verified 12/06/24 23:53 Social History Smoking Status: Former smoker History Elective abortions Hx Para 2 Spontaneous abortions Hx # Term Pregnancies Ectopic pregnancies Hx # Pregnancies Multiple births # of living children NST FHR Rate Baby A Baseline: 125 Variability:: Moderate NST Reactive:: Appropriate for gestational age Uterine Activity:: no ctx's Assessment & Plan (1) 27 weeks gestation of : (2) Uterine contractions: PLAN: Cervix closed and patient comfortable appearing without regular ctx's on toco. D/c home with return precautions. 12/14/242106 DO> Date _ Lisa Chapman DO Cosigner Signature (if applicable): Date CC: Dr. Lisa Chapman, DO; No Primary Care Physician ~ Signed [facility] Author Lisa Chapman [facility] Note Date/Time December 14, 2024 9 :07pm [facility] Medical Records Department [address] [place] [address] OB Triage Physician Note 12/14/242103 MR#: [id number] Acct: [id number] Name: ADRIANE CARD Rep #:[id number] : 1985 39 From: Lisa Chapman DO PCP: Care Physician,No Primary Status :DEP CLI Y Location: [facility] HPI - General General Date of Admission: 12/06/24 Date of Service: 12/06/24 Chief Complaint: r/o labor HPI Narrative ADRIANE CARD, is a 39 F who presents with contractions. No vb, lof. Good FM. Patient states she had a 3D ultrasound done at an outside clinic to get picturesof the baby, and she searched a picture online and was concerned about cervical funneling. She would like some reassurance. PFSH PFSH Home Medications ?Medication ?Instructions ?Recorded ?Last Taken ?Type vits,calcium no.78-iron 1 tab PO DAILY Unknown History fumarate-folic acid 29 mg-1 mg tablet (Prenatabs FA) sertraline 100 mg tablet (Zoloft) 100 mg PO DAILY 11/25 04/21 Unknown History Allergy/AdvReac Type Severity Reaction Status Date / Time No Known Allergies Allergy Verified 12/06/24 23:53 Social History Smoking Status: Former smoker History Elective abortions Hx Para 2 Spontaneous abortions Hx # Term Pregnancies Ectopic pregnancies Hx # Pregnancies Multiple births # of living children NST FHR Rate Baby A Baseline: 125 Variability:: Moderate NST Reactive:: Appropriate for gestational age Uterine Activity:: no ctx's Assessment & Plan (1) 27 weeks gestation of : (2) Uterine contractions: PLAN: Cervix closed and patient comfortable appearing without regular ctx's on toco. D/c home with return precautions. 12/14/242106 <Electronically signed by Lisa Chapman DO> Date _ Lisa Chapman DO Cosigner Signature (if applicable): Date CC: Dr. Lisa Chapman, DO; No Primary Care Physician ~ Signed [facility] Work Phone: Hospital Discharge instructions* Attachments The following attachments cannot be sent through Care Everywhere. * Kidney Stone, Adult ED (Dominican) [facility]: Relkxt for referral (narrative)* Consultation (Routine) - Authorized Specialty Diagnoses / Procedures Referred By Moreno bradley Referred To Contact Urology Diagnoses Kidney stone on right side Selam Marcelo, BAG SHAKER-OPERATIONS OFFICER [address] [address] Referral ID Status Reason Start Date Expiration Date Visits Requested Visits Authorized [id number] Authorized Specialty Services Required 09/09/2023 09/08/2024 1 1 [facility] Work Phone: Rehfpb for referral (narrative)* Diagnostic Procedure Only (Routine) - New Request Specialty Diagnoses / Procedures Referred By Moreno bradley Referred To Contact MOLECULAR & FUNCTIONAL IMAGING Diagnoses 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) Procedures NM LYMPH NODE IMAGING LYMPHATICS & LYMPH NODES IMAGING Sanjuanita Rodarte MD [address] [place] [address] Molecular & Functional Imaging [address] [place] [address] Referral ID Status Reason Start Date Expiration Date Visits Requested Visits Authorized [id number] New Request Auto-Generat ed Referral 03/26/2024 04/25/2025 1 1 [facility] for referral (narrative)No reason for referral information [facility]WTr[facility] Work Phone: Reason for visit Narrative* MRI/CT (Routine) - Closed Specialty Diagnoses / Procedures Referred By Moreno bradley Referred To Contact MR IMAGING Diagnoses 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) Procedures MRI BRAIN WO/W IVCON MRI BRAIN BRAIN STEM W/O W/CONTRAST MATERIAL Sanjuanita Rodarte MD [address] [place] [address] Phone: tel: fax: [place] [address] Referral ID Status Reason Start Date Expiration Date V isits Requested Visits Authorized [id number] Closed Auto-Generate d Referral 04/09/2024 05/09/2025 1 1 [facility] for visit Narrative* Diagnostic Procedure Only (Routine) - Closed Specialty Diagnoses / Procedures Referred By Moreno bradley Referred To Contact US IMAGING Diagnoses 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) Procedures US HEAD/NECK SOFT TISSUE OTHER US SOFT TISSUE HEAD & NECK REAL TIME IMGE Sanjuanita Centeno MD [address] [place] [address] Phone: tel: fax: [place] [address] Referral ID Status Reason Start Date Expiration Date V isits Requested Visits Authorized [id number] Closed Auto-Generate d Referral 04/24/2024 05/24/2025 1 1 [facility] for visit Narrative* Diagnostic Procedure Only (Routine) - Closed Specialty Diagnoses / Procedures Referred By Moreno bradley Referred To Contact BR IMAGING Diagnoses 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) Procedures US AXILLA ONLY LEFT US LMTD JOINT/OTH NONVASC XTR STRUX R-T W/IMG Sanjuanita Rodarte MD [address] [place] [address] Phone: tel: fax: [facility] [address] [place] [address] Referral ID Status Reason Start Date Expiration Date V isits Requested Visits Authorized [id number] Closed Auto-Generate d Referral 07/12/2024 05/14/2025 1 1 [facility] Summary Purpose Family History No Family History Records FoundUnknown Family Member Name Dates Details Family history of malignant neoplasm of breast: Maternal Grandmother(V16.3, Z80.3) Status:Active Unknown Family Member Name Dates Details Family history of malignant neoplasm of breast: Maternal Grandmother(V16.3, Z80.3) Status:Active Unknown Family Member Name Dates Details Family history of malignant neoplasm of breast: Maternal Grandmother(V16.3, Z80.3) Status:Active Unknown Family Member Name Dates Details Family history of malignant neoplasm of breast: Maternal Grandmother(V16.3, Z80.3) Status:Active Unknown Family Member Name Dates Details Family history of malignant neoplasm of breast: Maternal Grandmother(V16.3, Z80.3) Status:Active Unknown Family Member Name Dates Details Family history of malignant neoplasm of breast: Maternal Grandmother(V16.3, Z80.3) Status:Active Advance Directives No Advanced Directives Records FoundDocuments on File Type Date Recorded 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 c/o itchy skin,can see parasites under her skin. * An interactive audio and video telecommunication system which permits real time communications between the patient (at the originating site) and provider (at the distant site) was utilized to providethis telehealth service. * Verbal consent was requested and obtained from ADRIANE AVALOS on this date, 04/18/2021 01:40 PM , for a telehealth visit. pt. co itching, pinching, stinging felling under skin.pt. 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 Chief Complaint and Reason for Visit Chief Complaint Admit Date R/O December 06, 2024 1 1:23pm Reason for Visit Admit Date 27 weeks gestation of December 06, 2024 11:23pm Uterine contractions December 06, 2024 11:23pm Additional Source Comments INFORMATION SOURCE (unrecogn ized section and content) DATE CREATED AUTHOR 08/20/2017 [facility] DATE CREATED AUTHOR AUTHOR'S ORGANIZ ATION 05/04/2021 [facility] DATE CREATED AUTHOR AUTHOR'S ORGANIZ ATION 09/29/2021 [email or web address] DATE CREATED AUTHOR AUTHOR'S ORGANIZ ATION 02/21/2022 [facility] DATE CREATED AUTHOR AUTHOR'S ORGANIZ ATION 02/21/2022 [facility] DATE CREATED AUTHOR AUTHOR'S ORGANIZ ATION 03/23/2022 [facility] DATE CREATED AUTHOR AUTHOR'S ORGANIZ ATION 09/13/2023 [facility] DATE CREATED AUTHOR AUTHOR'S ORGANIZ ATION 09/17/2024 [facility] DATE CREATED AUTHOR AUTHOR'S ORGANIZ ATION 12/10/2024 [facility] DATE CREATED AUTHOR AUTHOR'S ORGANIZ ATION 12/21/2024 [facility] DATE CREATED AUTHOR AUTHOR'S ORGANIZ ATION 12/29/2024 [facility] Reason for Visit (unrecogniz ed section and content) Reason Comments Rash Pt states she had th is issue 2 weeks ago and was seen and provider told her he thought it was hookworms from traveling, was given emverm with failed results, states there are worms in her nose, daughter was treated for pinworms 2 weeks ago Reason Comments Dean Of Admissions Exam Reason Comments Hemorrhoids Reason Onset Date Comments Refill Request 12/04/2023 Reason Comments Abdominal Pain Amb to ED with c/o R LQ pain x 2 hrs with nausea. Denies any fever, V/D, or urinary s/s. Reason Comments New Patient Melanoma, upper back Reason Comments Post Op Follow Up PO S/P WLE Melanoma Reason Comments Well Woman Reason Comments Radiology CT Specialty Diagnoses / Procedures Referred By Contac t Referred To Contact CT IMAGING Diagnoses 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) Procedures CT CHEST W IVCON DIAGNOSTIC COMPUTED TOMOGRAPHY THORAX W/CONTRAST Sanjuanita Rodarte MD [address] [place] [address] Phone: tel: fax:[phone] [place] [id number] Referral ID Status Reason Start Date Expiration Date V isits Requested Visits Authorized [id number] Closed Auto-Generate d Referral 04/13/2024 02/24/2025 1 1 Reason Comments Consult Specialty Diagnoses / Procedures Referred By Contac t Referred To Contact Diagnoses 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) Procedures CONSULT TO HEMATOLOGY/ONCOLOGY OFFICE/OUTPATIENT NEW HIGH MDM 60 MINUTES Sanjuanita Rodarte MD [address] [place] [address] Phone: tel: fax: [place] [address] [place] [address] Phone: tel: fax: Referral ID Status Reason Start Date Expiration Date V isits Requested Visits Authorized [id number] Closed PCP Requested Referral 04/16/2024 04/16/2025 1 1 Reason Comments Melanoma Specialty Diagnoses / Procedures Referred By Moreno t Referred To Contact Diagnoses Malignant melanoma of skin (HCC) Procedures CONSULT TO MEDICAL GENETICS - CANCER MEDICAL GENETICS COUNSELING EACH 30 [place] [address] [place] [address] Phone: tel: fax: [facility] [address] [place] [address] Referral ID Status Reason Start Date Expiration Date Visits Requested Visits Authorized [id number] Pending Review PCP Requested Referral Auto-Generate d Referral 05/01/2024 05/01/2025 1 1 Reason Comments new ob Reason Comments PRAF Reason Comments Established Patient 3 month follow up, mihaela burnett Reason Onset Date Comments Care 08/26/2024 Reason Comments US Specialty Diagnoses / Procedures Referred By Moreno bradley Referred To Contact [facility] Diagnoses Encounter for supervision of normal in multigravida (HCC) Procedures OBSTETRIC ULTRASOUND WHI US PREG UTERUS AFTER 1ST TRIMEST GESTATION Jen Bowling APRN.[address] [address] Phone: tel: fax: [address] [address] Referral ID Status Reason Start Date Expiration Date V isits Requested Visits Authorized [id number] Closed Auto-Generate d Referral 08/18/2024 08/03/2025 1 1 Reason Onset Date Comments Care 09/14/2024 Reason Comments genetic testing update Referral ID Status Reason Start Date Expiration Date V isits Requested Visits Authorized [id number] Closed Auto-Generate d Referral 09/03/2024 08/03/2025 1 1 Reason Comments Consult Referred by Jen Bowling Specialty Diagnoses / Procedures Referred By Moreno bradley Referred To Contact Diagnoses Multigravida of advanced maternal age in first trimester (HCC) History of pre-eclampsia History of melanoma 9 weeks gestation of (HCC) Procedures OFFICE/OUTPATIENT NEW HIGH MDM 60 MINUTES Jen Bowling APRN.[facility] [address] [place] [address] Phone: tel: fax: Referral ID Status Reason Start Date Expiration Date V isits Requested Visits Authorized [id number] Closed PCP Requested Referral Auto-Generated Referral 08/04/2024 08/04/2025 1 1 Reason Onset Date Comments Care 10/13/2024 Care Teams (unrecognized sec tion and content) Demurrage Clerk Relationship Specialty Start Date End Date Dayan Galindo MD [address] [place] [address] PCP - General Family Medicine 05/02/21 Demurrage Clerk Relationship Specialty Start Date End Date Dayan Galindo MD MPH [address] [facility], [place] [address] PCP - General 05/03/21 Dayan Galindo MD MPH [address] [facility], [place] [address] PCP - MMO ACO PCP 05/26/21 10/25/21 Demurrage Clerk Relationship Specialty Start Date End Date Dayan Galindo MD [address] [place] [address] PCP - General Family Medicine 05/02/21 Demurrage Clerk Relationship Specialty Start Date End Date Dayan Galindo MD MPH [address] [facility], [address] [address] PCP - General 05/03/21 Demurrage Clerk Relationship Specialty Start Date End Date Shaila Grijalva MD [address] [place] [address] Crew Person Dermatology 03/31/24 Demurrage Clerk Relationship Specialty Start Date End Date Shaila Grijalva MD [address] [place] [address] Crew Person Dermatology 03/31/24 Demurrage Clerk Relationship Specialty Start Date End Date Shaila Grijalva MD [address] [place] [address] Crew Person Dermatology 03/31/24 Demurrage Clerk Relationship Specialty Start Date End Date Shaila Grijalva MD [address] [place] [address] Crew Person Dermatology 03/31/24 Demurrage Clerk Relationship Specialty Start Date End Date Shaila Grijalva MD [address] [place] [address] Crew Person Dermatology 03/31/24 Demurrage Clerk Relationship Specialty Start Date End Date Shaila Grijalva MD [address] [place] [address] Crew Person Dermatology 03/31/24 Demurrage Clerk Relationship Specialty Start Date End Date Shaila Grijalva MD [address] [place] [address] Crew Person Dermatology 03/31/24 Demurrage Clerk Relationship Specialty Start Date End Date Shaila Grijalva MD [address] [place] [address] Crew Person Dermatology 03/31/24 Demurrage Clerk Relationship Specialty Start Date End Date Shaila Grijalva MD [address] [place] [address] Crew Person Dermatology 03/31/24 Elsa Das, RN Specialty Industrial Health And Safety Professor Hematology/Oncology 05/01/24 [place] [address] [place] [address] Specialty C++ Quant Developer Hematology/Oncology 05/01/24 Demurrage Clerk Relationship Specialty Start Date End Date Shaila Grijalva MD [address] [place] [address] Crew Person Dermatology 03/31/24 Elsa Das, RN Specialty Industrial Health And Safety Professor Hematology/Oncology 05/01/24 [place] [address] [facility] [place] [address] Specialty C++ Quant Developer Hematology/Oncology 05/01/24 Demurrage Clerk Relationship Specialty Start Date End Date Shaila Grjialva MD [address] [place], [place] [id number] Crew Person Dermatology 03/31/24 Elsa Das, RN Specialty Industrial Health And Safety Professor Hematology/Oncology 05/01/24 [place] [address] [place] [address] Specialty C++ Quant Developer Hematology/Oncology 05/01/24 Demurrage Clerk Relationship Specialty Start Date End Date Shaila Grijalva MD [address] [place] [address] Crew Person Dermatology 03/31/24 Elsa Das, RN Specialty Industrial Health And Safety Professor Hematology/Oncology 05/01/24 [place] [address] [place] [address] Specialty C++ Quant Developer Hematology/Oncology 05/01/24 Demurrage Clerk Relationship Specialty Start Date End Date Shaila Grijalva MD [address] [place] [address] Crew Person Dermatology 03/31/24 Elsa Das, MARYAN Specialty Industrial Health And Safety Professor Hematology/Oncology 05/01/24 [place] [address] [place] [address] Specialty C++ Quant Developer Hematology/Oncology 05/01/24 Demurrage Clerk Relationship Specialty Start Date End Date Shaila Grijalva MD [address] [place] [address] Crew Person Dermatology 03/31/24 Elsa Das, RN Specialty Industrial Health And Safety Professor Hematology/Oncology 05/01/24 [place] [address] [place] [address] Specialty C++ Quant Developer Hematology/Oncology 05/01/24 Demurrage Clerk Relationship Specialty Start Date End Date Shaila Grijalva MD [address] [place] [address] Crew Person Dermatology 03/31/24 Elsa Das, RN Specialty Industrial Health And Safety Professor Hematology/Oncology 05/01/24 [place] [address] [place] [address] Specialty C++ Quant Developer Hematology/Oncology 05/01/24 Adriane Li PA-C [address] [place] [address] Dermatology 07/29/24 Demurrage Clerk Relationship Specialty Start Date End Date Shaila Grijalva MD [address] [place] [address] Crew Person Dermatology 03/31/24 Elsa Das, RN Specialty Industrial Health And Safety Professor Hematology/Oncology 05/01/24 [place] [address] [place] [address] Specialty C++ Quant Developer Hematology/Oncology 05/01/24 Adriane Li PA-C [address] [place] [address] Dermatology 07/29/24 Demurrage Clerk Relationship Specialty Start Date End Date Shaila Grijalva MD [address] [place] [address] Crew Person Dermatology 03/31/24 Elsa Das, RN Specialty Industrial Health And Safety Professor Hematology/Oncology 05/01/24 [place] [address] [place] [address] Specialty C++ Quant Developer Hematology/Oncology 05/01/24 Adriane Li PA-C [address] [place] [address] Dermatology 07/29/24 Demurrage Clerk Relationship Specialty Start Date End Date Shaila Grijalva MD [address] [place] [address] Crew Person Dermatology 03/31/24 Elsa Das, RN Specialty Industrial Health And Safety Professor Hematology/Oncology 05/01/24 [place] [address] [place] [address] Specialty C++ Quant Developer Hematology/Oncology 05/01/24 Adriane Li PA-C [address] [place] [address] Dermatology 07/29/24 Demurrage Clerk Relationship Specialty Start Date End Date Shaila Grijalva MD [address] [place] [address] Crew Person Dermatology 03/31/24 Elsa Das RN Specialty Industrial Health And Safety Professor Hematology/Oncology 05/01/24 [place] [address] [place] [address] Specialty C++ Quant Developer Hematology/Oncology 05/01/24 Adriane Li PA-C [address] [place] [address] Dermatology 07/29/24 Demurrage Clerk Relationship Specialty Start Date End Date Shaila Grijalva MD [address] [place] [address] Crew Person Dermatology 03/31/24 Elsa Das, RN Specialty Industrial Health And Safety Professor Hematology/Oncology 05/01/24 [place] [address] [place] [address] Specialty C++ Quant Developer Hematology/Oncology 05/01/24 Adriane Li PA-C [address] [place] [address] Dermatology 07/29/24 Demurrage Clerk Relationship Specialty Start Date End Date Shaila Grijalva MD [address] [place] [address] Crew Person Dermatology 03/31/24 Elsa Das, RN Specialty Industrial Health And Safety Professor Hematology/Oncology 05/01/24 [place] [address] [place] [id number] Specialty C++ Quant Developer Hematology/Oncology 05/01/24 Demurrage Clerk Relationship Specialty Start Date End Date Shaila Grijalva MD [address] [place] [address] Crew Person Dermatology 03/31/24 Elsa Das, RN Specialty Industrial Health And Safety Professor Hematology/Oncology 05/01/24 [place] [address] [place] [id number] Specialty C++ Quant Developer Hematology/Oncology 05/01/24 Adriane Li PA-C [address] [place] [address] Dermatology 07/29/24 Demurrage Clerk Relationship Specialty Start Date End Date Shaila Grijalva MD [address] [place] [address] Crew Person Dermatology 03/31/24 Elsa Das, RN Specialty Industrial Health And Safety Professor Hematology/Oncology 05/01/24 [place] [address] [place] [address] Specialty C++ Quant Developer Hematology/Oncology 05/01/24 Adriane Li PA-C [address] [place] [address] Dermatology 07/29/24 Demurrage Clerk Relationship Specialty Start Date End Date Shaila Grijalva MD [address] [place] [address] Crew Person Dermatology 03/31/24 Elsa Das RN Specialty Industrial Health And Safety Professor Hematology/Oncology 05/01/24 [place] [address] [place] [address] Specialty C++ Quant Developer Hematology/Oncology 05/01/24 Adriane Li PA-C [address] [place] [address] Dermatology 07/29/24 Demurrage Clerk Relationship Specialty Start Date End Date Shaila Grijalva MD [address] [place] [address] Crew Person Dermatology 03/31/24 Elsa Das, MARYAN Specialty Industrial Health And Safety Professor Hematology/Oncology 05/01/24 [place] [address] [place] [address] Specialty C++ Quant Developer Hematology/Oncology 05/01/24 Adriane Li PA-C [address] [place] [address] Dermatology 07/29/24 Demurrage Clerk Relationship Specialty Start Date End Date Shaila Grijalva MD [address] [place] [address] Crew Person Dermatology 03/31/24 Elsa Das, MARYAN Specialty Industrial Health And Safety Professor Hematology/Oncology 05/01/24 [place] [address] [place] [address] Specialty C++ Quant Developer Hematology/Oncology 05/01/24 Adriane Li PA-C [address] [place] [address] Dermatology 07/29/24 Demurrage Clerk Relationship Specialty Start Date End Date Shaila Grijalva MD [address] [place] [address] Crew Person Dermatology 03/31/24 Elsa Das, MARYAN Specialty Industrial Health And Safety Professor Hematology/Oncology 05/01/24 [place] [address] [place] [address] Specialty C++ Quant Developer Hematology/Oncology 05/01/24 Adriane Li PA-C [address] [place] [address] Dermatology 07/29/24 Demurrage Clerk Relationship Specialty Start Date End Date Shaila Grijalva MD [address] [place] [address] Crew Person Dermatology 03/31/24 Elsa Das, RN Specialty Industrial Health And Safety Professor Hematology/Oncology 05/01/24 [place] [address] [place] [address] Specialty C++ Quant Developer Hematology/Oncology 05/01/24 Adriane Li PA-C [address] [place] [address] Dermatology 07/29/24 Demurrage Clerk Relationship Specialty Start Date End Date Shaila Grijalva MD [address] [place] [address] Crew Person Dermatology 03/31/24 Elsa Das RN Specialty Industrial Health And Safety Professor Hematology/Oncology 05/01/24 [place] [address] [place] [address] Specialty C++ Quant Developer Hematology/Oncology 05/01/24 Adriane Li PA-C [address] [place] [address] Dermatology 07/29/24 Demurrage Clerk Relationship Specialty Start Date End Date Shaila Grijalva MD [address] [place] [address] Crew Person Dermatology 03/31/24 Elsa Das, MARYAN Specialty Industrial Health And Safety Professor Hematology/Oncology 05/01/24 [place] [address] [place] [address] Specialty C++ Quant Developer Hematology/Oncology 05/01/24 Adriane Li PA-C [address] [place] [address] Dermatology 07/29/24 Team Status: Active Member Role/Relationship Status Dates No Primary Care Physician Primary care physician Activ e Team Status: Inactive Member Role/Relationship Status Dates No Primary Care Physician Primary care physician Activ e Start: December 06, 2024 End: December 07, 2024 Dr. Lisa Chapman , DO Attending physician Active Start: December 06, 2024 End: December 07, 2024 <item><item> Privacy Markings (unrecogniz ed section and content) Section Author: Pushpa Gant PROHIBITION ON REDISCLOSURE OF CONFIDENTIAL INFORMATION This notice accompanies a disclosure of information concerning a client made to you with the consent of such client. Section Author: Pushpa [employer]Gnt PROHIBITION ON REDISCLOSURE OF CONFIDENTIAL INFORMATION This notice accompanies a disclosure of information concerning a client made to you with the consent of such client. Source Comments (unrecognize d section and content) In the event this informatio n is protected by the Federal Confidentiality of Alcohol and Drug Abuse Patient Records regulations: The Federal rules restrict any use of the information to criminally investigate or prosecute any alcohol or drug abuse patient.[facility] the event this information is protected by the Federal Confidentiality of Alcohol and Drug Abuse Patient Records regulations: The Federal rules restrict any use of the information to criminally investigate or prosecute any alcohol or drug abuse patient.[facility]on[facility] the event this information is protected by the Federal Confidentiality of Alcohol and Drug Abuse Patient Records regulations: The Federal rules restrict any use of the information to criminally investigate or prosecute any alcohol or drug abuse patient.[facility]on[facility] the event this information is protected by the Federal Confidentiality of Alcohol and Drug Abuse Patient Records regulations: The Federal rules restrict any use of the information to criminally investigate or prosecute any alcohol or drug abuse patient.[facility]on[facility] the event this information is protected by the Federal Confidentiality of Alcohol and Drug Abuse Patient Records regulations: The Federal rules restrict any use of the information to criminally investigate or prosecute any alcohol or drug abuse patient.[facility]on[facility] the event this information is protected by the Federal Confidentiality of Alcohol and Drug Abuse Patient Records regulations: The Federal rules restrict any use of the information to criminally investigate or prosecute any alcohol or drug abuse patient.[facility]onIn the event this information is protected by the Federal Confidentiality of Alcohol and Drug Abuse Patient Records regulations: The Federal rules restrict any use of the information to criminally investigate or prosecute any alcohol or drug abuse patient.[facility]onIn the event this information is protected by the Federal Confidentiality of Alcohol and Drug Abuse Patient Records regulations: The Federal rules restrict any use of the information to criminally investigate or prosecute any alcohol or drug abuse patient.[facility]onIn the event this information is protected by the Federal Confidentiality of Alcohol and Drug Abuse Patient Records regulations: The Federal rules restrict any use of the information to criminally investigate or prosecute any alcohol or drug abuse patient.[facility]onIn the event this information is protected by the Federal Confidentiality of Alcohol and Drug Abuse Patient Records regulations: The Federal rules restrict any use of the information to criminally investigate or prosecute any alcohol or drug abuse patient.[facility]onIn the event this information is protected by the Federal Confidentiality of Alcohol and Drug Abuse Patient Records regulations: The Federal rules restrict any use of the information to criminally investigate or prosecute any alcohol or drug abuse patient.[facility]onIn the event this information is protected by the Federal Confidentiality of Alcohol and Drug Abuse Patient Records regulations: The Federal rules restrict any use of the information to criminally investigate or prosecute any alcohol or drug abuse patient.[facility]onIn the event this information is protected by the Federal Confidentiality of Alcohol and Drug Abuse Patient Records regulations: The Federal rules restrict any use of the information to criminally investigate or prosecute any alcohol or drug abuse patient.[facility]onIn the event this information is protected by the Federal Confidentiality of Alcohol and Drug Abuse Patient Records regulations: The Federal rules restrict any use of the information to criminally investigate or prosecute any alcohol or drug abuse patient.[facility]onIn the event this information is protected by the Federal Confidentiality of Alcohol and Drug Abuse Patient Records regulations: The Federal rules restrict any use of the information to criminally investigate or prosecute any alcohol or drug abuse patient.[facility]onIn the event this information is protected by the Federal Confidentiality of Alcohol and Drug Abuse Patient Records regulations: The Federal rules restrict any use of the information to criminally investigate or prosecute any alcohol or drug abuse patient.[facility]onIn the event this information is protected by the Federal Confidentiality of Alcohol and Drug Abuse Patient Records regulations: The Federal rules restrict any use of the information to criminally investigate or prosecute any alcohol or drug abuse patient.[facility]onIn the event this information is protected by the Federal Confidentiality of Alcohol and Drug Abuse Patient Records regulations: The Federal rules restrict any use of the information to criminally investigate or prosecute any alcohol or drug abuse patient.[facility]onIn the event this information is protected by the Federal Confidentiality of Alcohol and Drug Abuse Patient Records regulations: The Federal rules restrict any use of the information to criminally investigate or prosecute any alcohol or drug abuse patient.[facility]onIn the event this information is protected by the Federal Confidentiality of Alcohol and Drug Abuse Patient Records regulations: The Federal rules restrict any use of the information to criminally investigate or prosecute any alcohol or drug abuse patient.[facility]onIn the event this information is protected by the Federal Confidentiality of Alcohol and Drug Abuse Patient Records regulations: The Federal rules restrict any use of the information to criminally investigate or prosecute any alcohol or drug abuse patient.[facility]onIn the event this information is protected by the Federal Confidentiality of Alcohol and Drug Abuse Patient Records regulations: The Federal rules restrict any use of the information to criminally investigate or prosecute any alcohol or drug abuse patient.[facility]onIn the event this information is protected by the Federal Confidentiality of Alcohol and Drug Abuse Patient Records regulations: The Federal rules restrict any use of the information to criminally investigate or prosecute any alcohol or drug abuse patient.[facility]onIn the event this information is protected by the Federal Confidentiality of Alcohol and Drug Abuse Patient Records regulations: The Federal rules restrict any use of the information to criminally investigate or prosecute any alcohol or drug abuse patient.[facility]onIn the event this information is protected by the Federal Confidentiality of Alcohol and Drug Abuse Patient Records regulations: The Federal rules restrict any use of the information to criminally investigate or prosecute any alcohol or drug abuse patient.[facility]onIn the event this information is protected by the Federal Confidentiality of Alcohol and Drug Abuse Patient Records regulations: The Federal rules restrict any use of the information to criminally investigate or prosecute any alcohol or drug abuse patient.[facility]onIn the event this information is protected by the Federal Confidentiality of Alcohol and Drug Abuse Patient Records regulations: The Federal rules restrict any use of the information to criminally investigate or prosecute any alcohol or drug abuse patient.[facility]onIn the event this information is protected by the Federal Confidentiality of Alcohol and Drug Abuse Patient Records regulations: The Federal rules restrict any use of the information to criminally investigate or prosecute any alcohol or drug abuse patient.[facility]onIn the event this information is protected by the Federal Confidentiality of Alcohol and Drug Abuse Patient Records regulations: The Federal rules restrict any use of the information to criminally investigate or prosecute any alcohol or drug abuse patient.[facility]onIn the event this information is protected by the Federal Confidentiality of Alcohol and Drug Abuse Patient Records regulations: The Federal rules restrict any use of the information to criminally investigate or prosecute any alcohol or drug abuse patient.[facility]onIn the event this information is protected by the Federal Confidentiality of Alcohol and Drug Abuse Patient Records regulations: The Federal rules restrict any use of the information to criminally investigate or prosecute any alcohol or drug abuse patient.[facility]onIn the event this information is protected by the Federal Confidentiality of Alcohol and Drug Abuse Patient Records regulations: The Federal rules restrict any use of the information to criminally investigate or prosecute any alcohol or drug abuse patient.[facility]onIn the event this information is protected by the Federal Confidentiality of Alcohol and Drug Abuse Patient Records regulations: The Federal rules restrict any use of the information to criminally investigate or prosecute any alcohol or drug abuse patient.[facility]onIn the event this information is protected by the Federal Confidentiality of Alcohol and Drug Abuse Patient Records regulations: The Federal rules restrict any use of the information to criminally investigate or prosecute any alcohol or drug abuse patient.[facility]onIn the event this information is protected by the Federal Confidentiality of Alcohol and Drug Abuse Patient Records regulations: The Federal rules restrict any use of the information to criminally investigate or prosecute any alcohol or drug abuse patient.[facility]onIn the event this information is protected by the Federal Confidentiality of Alcohol and Drug Abuse Patient Records regulations: The Federal rules restrict any use of the information to criminally investigate or prosecute any alcohol or drug abuse patient.[facility]onIn the event this information is protected by the Federal Confidentiality of Alcohol and Drug Abuse Patient Records regulations: The Federal rules restrict any use of the information to criminally investigate or prosecute any alcohol or drug abuse patient.[facility]onIn the event this information is protected by the Federal Confidentiality of Alcohol and Drug Abuse Patient Records regulations: The Federal rules restrict any use of the information to criminally investigate or prosecute any alcohol or drug abuse patient.[facility]onIn the event this information is protected by the Federal Confidentiality of Alcohol and Drug Abuse Patient Records regulations: The Federal rules restrict any use of the information to criminally investigate or prosecute any alcohol or drug abuse patient.[facility] Scheduled Active and Recently Administ ered Medications (unrecognized section and content) Medication Order 09/07/2023 09/08/2023 09/09/2023 iohexol (OMNIPaque) 350 mg iodine/mL solution 67 mL (COMPLETED) 67 mL, intravenous, Once in imaging, Starting on Sat09/09/23 at 1808, For 1 dose 1809 (Given - Provid er: Nataliya Desir) ketorolac (Toradol) injection 15 mg (COMPLETED) 15 mg, intravenous, Once, On Sat09/09/23 at 1555, For 1 dose 1607 (Given - Provid er: Sheree Webb RN) morphine injection 4 mg (COMPLETED) 4 mg, intravenous, Once, On Sat09/09/23 at 1650, For 1 dose 1654 (Given - Provid er: Sheree Webb RN) ondansetron (Zofran) injection 4 mg (COMPLETED) 4 mg, intravenous, Once, On Sat09/09/23 at 1555, For 1 dose, When administering via IV Push, administer over 3-5 minutes. 1607 (Given - Provid er: Sheree Webb RN) sodium chloride 0.9 % bolus 1,000 mL (COMPLETED) 1,000 mL, intravenous, at 999 mL/hr, Administer over 1 Hours, Once, On Sat09/09/23 at 1555, For 1 dose 1606 (New Bag - Prov ider: Sheree Webb RN)1701 (Stopped - Provider: Sheree Webb RN) Goals (unrecognized section and content) Goals may be documented in a n alternate section FOR RECORDS PERTAINING TO PATIENTS WHO ARE OR HAVE BEEN ENROLLED IN A CHEMICAL DEPENDENCY/SUBSTANCEABUSE PROGRAM, SOME INFORMATION MAY BE OMITTED. This clinical summary was aggregated from multiple sources. Caution should be exercised in using it in the provision of clinical care. This summary normalizes information from multiple sources, and as a consequence, information in this document may materially change the coding, format and clinical context of patient data. In addition, data may be omitted in some cases. CLINICAL DECISIONS SHOULD BE BASED ON THE PRIMARY CLINICAL RECORDS. [employer] provides no warranty or guarantee of the accuracy or completeness of information in this document.
[2025-02-03 04:56] VITALS: RESP 16; TEMP 36.8
[2025-02-03 04:57] VITALS: PULSE 94; O2SAT 97
[2025-02-03 04:58] VITALS: BP 129/78; PULSE 81
--- NOTE | 2025-02-03 07:29 | OB.TRI.NOTE ---
HPI - General General Date of Admission: 02/03/25 Date of Service: 02/03/25 Chief Complaint: contractions HPI Narrative SHEA CALLAHAN, is a 40 F who presents with contractions since midnight. No bleeding no leaking. 1 cm at time of arrival. Made a little change to 1.5 cm. Does have frequency contractions. That are not all painful. Previous vaginal deliveries at 37 weeks. A 34 week delivery for PRE E. Starting IVF bolus Maternal Data Information Final MORENO: 03/07/25 Gestational age: 35+3 PFSH PFSH Home Medications ?Medication ?Instructions ?Recorded ?Last Taken ?Type vits,calcium no.78-iron 1 tab PO DAILY 12/22/15 Unknown History fumarate-folic acid 29 mg-1 mg tablet (Prenatabs FA) sertraline 100 mg tablet (Zoloft) 100 mg PO DAILY 12/06/24 Unknown History famotidine 20 mg tablet 20 mg PO DAILY 02/03/25 Unknown History Allergy/AdvReac Type Severity Reaction Status Date / Time No Known Allergies Allergy Verified 02/03/25 04:52 Social History Smoking Status: Former smoker History 6 Elective abortions Hx Para 2 Spontaneous abortions Hx # Term Pregnancies Ectopic pregnancies Hx # Pregnancies Multiple births # of living children NST FHR Rate Baby A Baseline: 130 Variability:: Moderate Accelerations:: 15 x 15 Decelerations:: None NST Reactive:: Yes Uterine Activity:: q 2 Assessment & Plan (1) Uterine contractions: (2) 35 weeks gestation of : PLAN: Plan IVF bolus. GBS negative. Recheck
[2025-02-03] MEDS: Lactated Ringers 1,000 ML 999 ML IV (07:30)
[2025-02-03 10:59] LABS: Color, Urine Straw (Yellow); Glucose, Dipstick Normal (Normal); Ketone-Dipstick Negative (Negative); Leukocyte Esterase-Dipstick Negative /ul (Negative); Nitrite-Dipstick Negative (Negative); Occult Blood-Urine Negative /ul (Negative); Protein-Dipstick Negative (Negative); Specific Gravity, Urine 1.010 (1.002-1.030); Urine Bilirubin Dipstick Negative (Negative)
[2025-02-03 11:04] VITALS: BP 115/62; PULSE 65; O2SAT 97
--- NOTE | 2025-02-03 11:53 | NURSING ---
Provider on unit reviewed FHR tracing and discussed plan of care with RN
--- NOTE | 2025-02-03 17:18 | PCM.PN.CNM ---
Subjective Subjective Patient stated feeling better since IV hydration. No cervical change after extensive monitoring. Objective Data Objective Data Vital Signs: Vital Signs Temp Pulse Resp BP Pulse Ox 98.3 F 65 16 115/62 97 02/03/25 04:56 02/03/25 11:04 02/03/25 04:56 02/03/25 11:04 02/03/25 11:04 Weight: 158 lb 3.2 oz Body Mass Index (BMI) 25.5 Lab / Micro Data Labs: Laboratory Results - last 24 hr 02/03/25 10:45: Urine Color Straw, Urine Clarity Clear, Urine pH 8.0, Ur Specific [place] 1.010, Urine Protein Negative, Urine Glucose (UA) Normal, Urine Ketones Negative, Urine Occult Blood Negative, Urine Nitrite Negative, Urine Bilirubin Negative, Urine Urobilinogen Normal, Ur Leukocyte Esterase Negative Micro: Microbiology 02/03/25 05:00 Genital vaginal Group B Streptococcus (PCR) - Final Assessment & Plan (1) 35 weeks gestation of : (2) Uterine contractions: PLAN: Plan PTL precautions and kick counts reviewed D/C home with follow up in office UA negative Dr. Whalen aware of A&P
== END 2025-02-03 11:30 | disposition home or self-care (01) ==
LOC: WPOUT 04:40 → WP 04:40
PROVIDERS: Advanced Practice Midwife; Referring Provider Obstetrics & Gynecology; Visit Provider Obstetrics & Gynecology
DX: O47.03 False labor before 37 completed weeks of gestation, third trimester (principal); Z3A.35 35 weeks gestation of pregnancy; Z87.891 Personal history of nicotine dependence
CPT/HCPCS: 59025; 59050; 81002; 87081; 87086; 87088; 87653; 99221; G0378

== ENCOUNTER 2025-02-23 04:50 | Outpatient (CLI) | payer MEDICAID, SELFPAY ==
[2025-02-23 04:54] VITALS: BMI 26.6
[2025-02-23 04:58] VITALS: PULSE 86; O2SAT 98
--- OUTSIDE RECORDS SUMMARY | 2025-02-23 04:59 | XMS RPT_ITS | CCD ---
Author Organization [facility] Care Team Providers Care Necktie Stitcher Name Role Phone Rhys Drake W Unavailable Unavailable Rhys Drake W Unavailable Unavailable No Doctor Assigned, Nodr Unavailable Unavail able Michelle Mckee Unavailable Unavailable Unavailable Unavailable Dayan Galindo MD Primary Care Provider Mallmarva, Dayan Nag S Unavailable NAZIA GALINDOUN [...] RN Unavailable Unavailable Valeria Werner MD Unavailable [phone] Graf MISTRYC, Adriane Rhonda Unavailable BENY ALATORRE Attending Unavailab awilda HASSAN, PHYSICIAN [...] ( ORAL) Take by mouth. Active Vit,Hood 27-Ptlo-Gqpkl (Prenatabs Fa) 1 TABLET tablet (1 source) Start: 12-22-2015 take 1 tablet by mouth once daily Vit,Hood 38-Jmzu-Aaxkp (Prenatabs Fa) 1 TABLET tablet Active 1 [...] End: 18-Sep-2021 Generic Substitution Allowed Comments: Caution [place] law prohibits the transfer of this drug [...] serious breathing problems. Comment on above: Caution [place] law prohibits the transfer of this drug to any person other than the person for whom it was prescribed.May cause drowsiness. Alcohol may intensify this effect. Use care when operating dangerous machinery.This product contains acetaminophen. Do not use with any other product containing acetaminophen to prevent possible liver damage.Using more of this medication than prescribed may cause serious breathing problems. [id number] 200 actuat albuterol 0.09 mg/actuat metered dose [...] in prior , currently , third trimester ([facility])] Onset: 5 Episodic Other complications of (1 source) Other specified related conditions, third trimester; Translations: [Heartburn during in third trimester ([facility])] Onset: 5 Episodic Other complications of (2 sources) Supervision of elderly multigravida, second trimester; Translations: [Advanced maternal age in multigravida, second trimester ([facility])] Onset: 5 Episodic Other complications of (1 source) Supervision of elderly multigravida, third trimester; Translations: [Multigravida of advanced maternal age in third trimester ([facility])] Onset: 5 Episodic Other complications of (1 source) Other specified related conditions, unspecified trimester; Translations: [Pelvic pressure in ([facility])] Onset: 5 Episodic Other diseases [...] Heartburn; Translations: [Heartburn during in third trimester ([facility])] Onset: 5 Episodic Other infections; [...] of ; Translations: [27 weeks gestation of ([facility])] Onset: 5 Episodic Residual codes; unclassified (1 source) 19 weeks gestation of ; Translations: [19 weeks gestation of ([facility])] Onset: 5 Episodic Secondary malignancies [...] of advanced maternal age in first trimester ([facility])] Onset: 08-04-2024 Episodic Other complications of (1 source) Supervision of high risk , unspecified, first trimester; Translations: [Encounter for supervision of high risk in first trimester, antepartum ([facility])] Onset: 08-04-2024 Episodic Other diseases [...] width (RBC) [Ratio] 13.6 % Normal 11.5-15.0 [facility] Comment on above: Order Comment: Speci men Type: BLOOD SPECIMEN Ordering Facility: [facility] Address: [address] [place] [address] Performed By: #### 7 3752-8, 5195-3, 42570-0 #### [facility] CLIA [id number] [address] [place] [address] [place] Hematocrit (Bld) [Volume fraction] 34.8 % Low 36.0-46.0 [facility] Comment on above: Order Comment: Speci men Type: BLOOD SPECIMEN Ordering Facility: [facility] Address: [address] [place] [address] Performed By: #### 7 3752-8, 5-3, 69639-6 #### [facility] CLIA [id number] [address] [place] [address] [place] Hemoglobin (Bld) [Mass/Vol] 11.7 g/dL Normal 11.5-15.5 [facility] Comment on above: Order Comment: Speci men Type: BLOOD SPECIMEN Ordering Facility: [facility] Address: [address] [place] [address] Performed By: #### 7 3752-8, 5194-3, 73142-1 #### [facility] CLIA [id number] [address] [place] [address] [place] MCH (RBC) [Entitic mass] 30.0 pg Normal 26.0-34.0 [facility] Comment on above: Order Comment: Speci men Type: BLOOD SPECIMEN Ordering Facility: [facility] Address: [address] [place] [address] Performed By: #### 7 3752-8, 519-3, 36707-1 #### [facility] CLIA [id number] [address] [place] [address] [place] MCHC (RBC) [Mass/Vol] 33.6 g/dL Normal 30.5-36.0 [facility] Comment on above: Order Comment: Speci men Type: BLOOD SPECIMEN Ordering Facility: [facility] Address: [address] [place] [address] Performed By: #### 7 3752-8, 5195-3, 22180-1 #### [facility] CLIA [id number] [address] [place] [address] [place] MCV (RBC) [Entitic vol] 89.2 fL Normal 80.0-100.0 [facility] Comment on above: Order Comment: Speci men Type: BLOOD SPECIMEN Ordering Facility: [facility] Address: [address] [place] [address] Performed By: #### 7 3752-8, 5195-3, 49756-2 #### [facility] CLIA [id number] [address] [place] [address] [place] Nucleated RBC (Bld) [#/Vol] 10*3/uL Normal <0.01 [facility] Comment on above: Order Comment: Speci men Type: BLOOD SPECIMEN Ordering Facility: [facility] Address: [address] [place] [address] Performed By: #### 7 3752-8, 5195-3, 43906-9 #### [facility] CLIA [id number] [address] [place] [address] [place] Platelet mean volume (Bld) [Entitic vol] 8.3 fL Low 9.0-12.7 [facility] Comment on above: Order Comment: Speci men Type: BLOOD SPECIMEN Ordering Facility: [facility] Address: [address] [place] [address] Performed By: #### 7 3752-8, 5195-3, 15953-2 #### [facility] CLIA [id number] [address] [place] [address] [place] Platelets (Bld) [#/Vol] 308 10*3/uL Normal 150-400 [facility] Comment on above: Order Comment: Speci men Type: BLOOD SPECIMEN Ordering Facility: [facility] Address: [address] [place] [address] Performed By: #### 7 3752-8, 5195-3, 04602-8 #### [facility] CLIA [id number] [address] [place] [address] [place] RBC (Bld) [#/Vol] 3.90 10*6/uL Normal 3.90-5.20 [facility] Comment on above: Order Comment: Speci men Type: BLOOD SPECIMEN Ordering Facility: [facility] Address: [address] [place] [address] Performed By: #### 7 3752-8, 5195-3, 29276-3 #### [facility] CLIA [id number] [address] [place] [address] [place] WBC (Bld) [#/Vol] 11.56 10*3/uL High 3.70-11.00 [facility] Comment on above: Order Comment: Speci men Type: BLOOD SPECIMEN Ordering Facility: [facility] Address: [address] [place] [address] Performed By: #### 7 3752-8, 5195-3, 98043-9 #### [facility] CLIA [id number] [address] [place] [address] [place] GESTATIONAL GLUCOSE SCREEN, 1-HOUR, 50 GRAM, NON-FASTINGon 12-14-2024 Glucose [Mass/Vol] 77 mg/dL Normal 74-134 [facility] Comment on above: Order Comment: Speci men Type: BLOOD SPECIMEN Ordering Facility: [facility] Address: [address] [place] [address] Result Comment: [facility] Congress of Obstetricians and Gynecologists (Lena/Negro) guidelines state a gestational diabetes mellitus positive screen is made, in women not previously diagnosed with overt diabetes, when the 1 hr plasma glucose level is equal to or above 140 mg/dL. The [facility] Converter Operator and [facility] recommends a 135 mg/dL cutoff. Performed By: #### 7 3752-8, 5195-3, 25311-4 #### [facility] CLIA [id number] [address] [place] [address] OF [facility] OB Triage Physician Noteon 1 OB Triage Physician Note [facility] Medical Records Department [address] [place] [address] OB Triage Physician Note 12/14/242103 MR#: [id number] Acct: [id number] Name: ADRIANE CARD Rep #: [id number] : 1985 39 From: Lisa Chapman DO PCP: Care Physician,No Primary Status:DEP CLI Y Location: [facility] HPI - General General Date of Admission: [...] DO; No Primary Care Physician Signed Normal [facility] Reagin and Treponema pallidu m IgG and IgM [Interp]on 12-14-2024 T. pallidum IgG+IgM IA Ql (S) Non-Reactive Normal Nonreactive [facility] Comment on above: Order Comment: Speci men Type: BLOOD SPECIMEN Ordering Facility: [facility] Address: [address] [place] [address] Performed By: #### 7 3752-8, 5195-3, 76176-4 #### [facility] CLIA [id number] [address] [place] [address] [place] Reagin+T pallidum IgG+IgM Se rPl-Impon 12-14-2024 Reagin and Treponema pallidum IgG and IgM [Interp] Cannot exclude recent Treponemal infection if specimen collected within 7-10 days after appearance of suspect lesions or 2-3 weeks after an exposure. Clinical correlation is required. Normal [facility] Comment on above: Order Comment: Speci men Type: BLOOD SPECIMEN Ordering Facility: [facility] Address: [address] [place] [address] Performed By: #### 7 3752-8, 5195-3, 41444-5 #### [facility] CLIA [id number] [address] [place] [address] [place] [address] [place] BILE ACIDS, TOTALon 12-12-19 25 Bile acid [Moles/Vol] 2.0 umol/L Normal <7.5 [facility] Comment on above: Order Comment: Good cheema Type: BLOOD SPECIMEN Ordering Facility: [facility] Address: [address] [place] [address] Result Comment: Refe rence interval applies to [...] 10.4 umol/L Performed By: #### 2 4325-3, 99120-3 #### [facility] CLIA [id number] [address] [place] [address] [place] Basic metabolic 2000 panelon 12-11-2024 Anion gap [Moles/Vol] 9 mmol/L Normal 8-15 [facility] Comment on above: Order Comment: Good cheema Type: BLOOD SPECIMEN Ordering Facility: [facility] Address: [address] [place] [address] Performed By: #### 2 4325-3, 65697-7 #### [facility] CLIA [id number] [address] [place] [address] [place] Calcium [Mass/Vol] 8.1 mg/dL Low 8.5-10.2 [facility] Comment on above: Order Comment: Speci men Type: BLOOD SPECIMEN Ordering Facility: [facility] Address: [address] [place], [place] [address] Performed By: #### 2 4325-3, 19260-9 #### [facility] CLIA [id number] [address] [place] [address] [place] Chloride [Moles/Vol] 106 mmol/L Normal 98-107 [facility] Comment on above: Order Comment: Speci men Type: BLOOD SPECIMEN Ordering Facility: [facility] Address: [address] [place], [place] [address] Performed By: #### 2 4324-3, 51896-5 #### [facility] CLIA [id number] [address] [place] [address] [place] CO2 [Moles/Vol] 23 mmol/L Normal 22-30 [facility] Comment on above: Order Comment: Speci men Type: BLOOD SPECIMEN Ordering Facility: [facility] Address: [address] [place] [address] Performed By: #### 2 5-3, 55998-6 #### [facility] CLIA [id number] [address] [place] [address] [place] Creatinine [Mass/Vol] 0.53 mg/dL Low 0.58-0.96 [facility] Comment on above: Order Comment: Speci men Type: BLOOD SPECIMEN Ordering Facility: [facility] Address: [address] [place] [address] Performed By: #### 2 4325-3, 13082-3 #### [facility] CLIA [id number] [address] [place] [address] [place] eGFRcr SerPlBld CKD-EPI 2020 122 mL/min/1.73m??? Normal >=60 [facility] Comment on above: Order Comment: Good cheema Type: BLOOD SPECIMEN Ordering Facility: [facility] Address: [address] [place] [address] Result Comment: Thee mated Glomerular Filtration Rate [...] actual GFR. Performed By: #### 2 4325-3, 02568-9 #### [id number] [address] [place] [address] [place] Glucose [Mass/Vol] 68 mg/dL Low 74-99 [facility] Comment on above: Order Comment: Good cheema Type: BLOOD SPECIMEN Ordering Facility: [facility] Address: [address] [place] [address] Result Comment: The [place] Diabetes Association (ADA) provides guidance for cutoff [...] Standards of Medical Care in Diabetes 2016, [place] [employer]. Diabetes Care. 2016.39(Suppl 1). Performed By: #### 2 4325-3, 26511-0 #### [facility] CLIA [id number] [address] [place] [address] [place] Potassium [Moles/Vol] 3.4 mmol/L Low 3.7-5.1 [facility] Comment on above: Order Comment: Speci men Type: BLOOD SPECIMEN Ordering Facility: [facility] Address: [address] [place] [address] Performed By: #### 2 4325-3, 66707-5 #### [facility] CLIA [id number] [address] [place] [address] [place] Sodium [Moles/Vol] 138 mmol/L Normal 136-144 [facility] Comment on above: Order Comment: Speci men Type: BLOOD SPECIMEN Ordering Facility: [facility] Address: [address] [place] [address] Performed By: #### 2 4325-3, 21135-9 #### [facility] CLIA [id number] [address] [place] [address] [place] Urea nitrogen [Mass/Vol] 12 mg/dL Normal 7-21 [facility] Comment on above: Order Comment: Speci men Type: BLOOD SPECIMEN Ordering Facility: [facility] Address: [address] [place] [address] Performed By: #### 2 4325-3, 45024-1 #### [facility] CLIA [id number] [address] [place] [address] [place] Hepatic function 2000 panelo n 12-11-2024 Albumin [Mass/Vol] 3.5 g/dL Low 3.9-4.9 [facility] Comment on above: Order Comment: Speci men Type: BLOOD SPECIMEN Ordering Facility: [facility] Address: [address] [place] [address] Performed By: #### 2 4325-3, 34423-1 #### [facility] CLIA [id number] [address] [place] [address] [place] ALP [Catalytic activity/Vol] 75 U/L Normal 34-123 [facility] Comment on above: Order Comment: Speci men Type: BLOOD SPECIMEN Ordering Facility: [facility] Address: [address] [place] [address] Performed By: #### 2 4325-3, 33386-4 #### [facility] CLIA [id number] [address] [place] [address] [place] ALT [Catalytic activity/Vol] 8 U/L Normal 7-38 [facility] Comment on above: Order Comment: Speci men Type: BLOOD SPECIMEN Ordering Facility: [facility] Address: [address] [place] [address] Performed By: #### 2 4325-3, 36080-7 #### [facility] CLIA [id number] [address] [place] [address] [place] AST [Catalytic activity/Vol] 13 U/L Normal 13-35 [facility] Comment on above: Order Comment: Speci men Type: BLOOD SPECIMEN Ordering Facility: [facility] Address: [address] [place], [place] [address] Performed By: #### 2 4325-3, 62953-3 #### [facility] CLIA [id number] [address] [place] [address] [place] Bilirubin [Mass/Vol] 0.3 mg/dL Normal 0.2-1.3 [facility] Comment on above: Order Comment: Speci men Type: BLOOD SPECIMEN Ordering Facility: [facility] Address: [address] [place] [address] Performed By: #### 2 4325-3, 48772-1 #### [facility] CLIA [id number] [address] [place] [address] [place] Bilirubin.conjugated [Mass/Vol] 0.1 mg/dL Normal <0.3 [facility] Comment on above: Order Comment: Speci men Type: BLOOD SPECIMEN Ordering Facility: [facility] Address: [address] [place] [address] Performed By: #### 2 4325-3, 24543-8 #### [facility] CLIA [id number] [address] [place] [address] [place] Protein [Mass/Vol] 6.0 g/dL Low 6.3-8.0 [facility] Comment on above: Order Comment: Speci men Type: BLOOD SPECIMEN Ordering Facility: [facility] Address: [address] [place] [address] [place] [address] Performed By: #### 2 4325-3, 73994-7 #### [facility] CLIA [id number] [address] [place] [address] [place] (ROM) Rupture Of Membraneson 12-07-2024 ROM Negative Normal Negative [facility] Comment on above: Result Comment: Amni otic fluid not present indicates No Rupture of Membranes at time of specimen collection. Performed By: #### L 205.1000, L205.0000 #### [facility] [address] [place] [address]. [place], [place], [address] Bilirubin Test strip Ql (U)O rdered By: Lisa Chapman on 12-07-2024 Bilirubin Ql (U) Negative Negative [facility] Fibronectinon 12-08-19 25 fFIBRONECTIN Negative Normal [facility] Comment on above: Performed By: #### L 205.1000, L205.0000 #### [facility] [place], [place], [address] fibronectinOrdered By: Lisa Chapman on 12-07-2024 Fibronectin. (Vag fld) [Mass/Vol] Negative [facility] Ketones Test strip Ql (U)Ord ered By: Lisa Chapman on 12-07-2024 Ketones Ql (U) Negative Negative [facility] Nitrite Test strip Ql (U)Ord ered By: Lisa Chapman on 12-07-2024 Nitrite Ql (U) Negative Negative [facility] Protein Test strip Ql (U)Ord ered By: Lisa Chapman on 12-07-2024 Protein Ql (U) 15 mg/dl High Negative [facility] Urinalysis, Routine (Dipstic k)on 12-07-2024 BILIRUBIN URINE Negative Normal Negative [facility] Comment on above: Order Comment: MARVIN CTOR TO SPECIFY Performed By: #### L 400.2010 #### [facility] [address] [place], [address] Clarity (U) Cloudy Normal Clear [facility] Comment on above: Order Comment: MARVIN CTOR TO SPECIFY Performed By: #### L 400.2010 #### [facility] [address] [place], [address] Color (U) Yellow Normal Yellow [facility] Comment on above: Order Comment: MARVIN CTOR TO SPECIFY Performed By: #### L 400.2010 #### [facility] [address] [place], [address] GLUCOSE, UR Normal Normal Normal [facility] Comment on above: Order Comment: MARVIN CTOR TO SPECIFY Performed By: #### L 400.2010 #### [facility] [address] [place], [address] KETONE UR Negative Normal Negative [facility] Comment on above: Order Comment: MARVIN CTOR TO SPECIFY Performed By: #### L 400.2010 #### [facility] [address] [place], [address] LEUK ESTERASE Negative Normal Negative [facility] Comment on above: Order Comment: MARVIN CTOR TO SPECIFY Performed By: #### L 400.2010 #### [facility] [address] [place], [address] Nitrite Ql (U) Negative Normal Negative [facility] Comment on above: Order Comment: MARVIN CTOR TO SPECIFY Performed By: #### L 400.2010 #### [facility] [address] [place], [address] OCCULT BLOOD-UR Negative Normal Negative [facility] Comment on above: Order Comment: MARVIN CTOR TO SPECIFY Performed By: #### L 400.2010 #### [facility] [address] [place], [address] pH UR 7.0 Normal 5.0 - 8.0 [facility] Comment on above: Order Comment: COLLE CTOR TO SPECIFY Performed By: #### L 400.2010 #### [facility] [address] [place], [address] PROT DIPSTX 15 mg/dl Abnormal Negative [facility] Comment on above: Order Comment: MARVIN CTOR TO SPECIFY Performed By: #### L 400.2010 #### [facility] [address] [place], [address] SP.GR. DIPSTX 1.015 Normal 1.002-1.030 [facility] Comment on above: Order Comment: MARVIN CTOR TO SPECIFY Performed By: #### L 400.2010 #### [facility] [address] [place], [address] UROBILI Normal Normal Normal [facility] Comment on above: Order Comment: MARVIN CTOR TO SPECIFY Performed By: #### L 400.2010 #### [facility] [address] [place], [address] Urine clarityOrdered By: Nata Chapman on 12-07-2024 Clarity (U) Cloudy Clear [facility] Urine color determinationOrd ered By: Lisa Chapman on 12-07-2024 Color (U) Yellow Yellow [facility] Urine glucose detectionOrder ed By: Lisa Chapman on 12-07-2024 Glucose Ql (U) Normal mg/dl Normal [facility] Urine leukocyte esterase det ection by dipstickOrdered By: Lisa Chapman on 12-07-2024 Leukocyte esterase Test strip Ql (U) Negative Negative [facility] Urine pHOrdered By: Lisa jimenez on 12-07-2024 pH (U) 7.0 [pH] 5.0 - 8.0 [facility] Urine specific gravity measu rementOrdered By: Lisa Chapman on 12-07-2024 Specific gravity (U) [Rel density] 1.015 1.002-1.030 [facility] Urine urobilinogen measureme ntOrdered By: Lisa Chapman on 12-07-2024 Urobilinogen Ql (U) Normal mg/dl Normal [facility] CNPNon 12-02-2024 CNPN Telephone (OBGYWM) ADRIANE CARD ([id number]) 1985 F Date Time Provider Department 12/02/24 [...] Status:Closed by DARIOABEBA WHITMORE on 12/02/24 Normal [facility] US AXILLA ONLY LTon 10-0 [facility] US AXILLA ONLY LT * * *Final Report* * * DATE OF EXAM: Nov 25 2024 1:51PM WRU [id number] - [facility] US AXILLA ONLY LT / PROCEDURE REASON: 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) * * * * Physician Interpretation * * * * [place] [address] #[id number] - PACO US AXILLA ONLY LT #[id number] - [facility] US AXILLA ONLY RT HISTORY: [...] Salvador Lang M.D. Electronically signed on: 11/25/2024 Automobile Engine Assembler: JESSEE Transcribe Date/Time: Nov 25 2024 1:30P Dictated by : SALVADOR LANG MD This examination was interpreted and the report reviewed and electronically signed by: SALVADOR LANG MD on Nov 25 2024 2:02PM EST [id number] Normal [facility] US AXILLA ONLY RTon 10-0 [facility] US AXILLA ONLY RT * * *Final Report* * * DATE OF EXAM: Nov 25 2024 1:51PM WRU 0592 - [facility] US AXILLA ONLY RT / PROCEDURE REASON: 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) * * * * Physician Interpretation * * * * [address] [address] [place] [address] #[id number] - [facility] US AXILLA ONLY LT #[id number] - [facility] US AXILLA ONLY RT HISTORY: [...] Salvador Lang M.D. Electronically signed on: 11/25/2024 Automobile Engine Assembler: JESSEE Transcribe Date/Time: Nov 25 2024 1:30P Dictated by : SALVADOR LANG MD This examination was interpreted and the report reviewed and electronically signed by: SALVADOR LANG MD on Nov 25 2024 2:02PM EST [id number] N Normal [facility] 11-18-2024 CNPN Telephone ([id number]) LONDONADRIANE Bonilla ([id number]) 1985 F Date Time Provider Department 11/18/24 LINDA JAMISON [id number] During your visit today, we recorded the following information about you: Linda Jamison RN 11/18/2024 9:47 AM Signed 2nd risk assessment form submitted 11/18/2024. 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 MATERNAL MEDICINE [facility] Radiology Study observation (narrative) [facility] [place] 10-05-2024 [facility] Telephone (GMINE) ADRIANE CARD ([id number]) 1985 F Date Time Provider Department 10/05/24 RAMYA RINALDI During your visit today, we recorded the following information about you: Esperanza Sanabria 10/05/2024 3:23 PM Signed Received call from [employer] regarding PA for genetic testing. Confirmed patient's [...] the denial could be appealed, denial number [id number]. Reason for denial was listed as no medical necessity. Informed Deisy that I would update the ordering provider. Esperanza Sanabria Genetic Counselor Manager Cosmetic Allergies As of Date: 10/05/2024 (No Known [...] Encounter Status:Closed by ESPERANZA SANABRIA on 10/05/24 [facility] 09-30-2024 CNPN Telephone (OBGYWM) ADRIANE CARD ([id number]) 1985 F Date Time Provider Department 09/30/24 UNIQEU MEJIA OBGYWM During your visit today, we recorded the following information about you: Jason Marquez RN 09/30/2024 2:19 PM Signed OB delivery note from 2005 requested from [facility] for upcoming [facility] appointment. I did call medical records and it is available Jason Marquez RN 09/30/2024 2:30 PM Signed received Allergies As of Date: 09/30/2024 (No Known Allergies) Date Reviewed: 09/14/2024 Reviewed by: Raffy Kate LPN - Fully Assessed Reason for Visit: Request Outside Medical Records [[id number]] Prescriptions as of 09/30/2024 - sertraline (ZOLOFT) [...] Encounter Status:Closed by JASON MARQUEZ on 09/30/24 [facility] [place] 09-21-2024 CNPN Telephone ([employer]) LONDONADRIANE ([id number]) 1985 F Date Time Provider Department 09/21/24 DMITRY GUTIÉRREZ During your visit today, we recorded the following information about you: Dmitry Gutiérrez LGC 09/21/2024 12:52 PM Signed Tried to call to explain the following: I periodically check to make sure my previous genetic test orders have gone through. When I checked for this patient, I could not find their order in [employer] portal. [employer] also could not find their order, and our [facility] team was unable to see what happened since our interface messages only go back 3 months. Therefore, Ramya Rinaldi placed a new order for testing and I sent a message to the patient via [employer] to inform her of this technical error. Shortly after I sent the [employer] message, Ramya found that the patient was showing up with multiple RQ numbers in [employer]'s portal and we came to the conclusion [...] testing or not. I will send a [employer] message to follow up instead since she [...] Status:Closed by DMITRY GUTIÉRREZ on 09/21/24 Normal [facility] ED Prov Noteon 09-10-2024 ED Prov Note ED PROVIDER NOTE [facility] EMERGENCY [facility] NAME: Adriane Card AGE: 39 y.o. : 1985 VISIT DATE: 09/10/2024 CSN: [id number] PCP: No, Physician Chief Complaint Patient presents with Constipation Chief complaint constipation History of present illness 39-year-old female who has not had a bowel movement in a week and a half. She has used vthz-bfb-edqpbtg enema mag citrate and a suppository still [...] nursing note reviewed. Exam conducted with a rail technician present. Constitutional: Appearance: Normal appearance. She is [...] 1. Dayan Galindo MD. Specialty: Family Medicine [address] [place] [address] Contact information for after-discharge care Follow-up information [...] indicated. - Single, live, intrauterine . - [place] rump length measurement is consistent with the [...] view: normal 4-chamber view with color: normal 3-ndalhy-luadmtb view: normal Abdominal cord insertion: normal Stomach: [...] Read By: Aura Junior M.D. MATERNAL MEDICINE [facility] Radiology Study observation (narrative) [facility] CBC W Auto Differential pane l (Bld)on 08-19-2024 Basophils (Bld) [#/Vol] 0.04 10*3/uL Normal <0.11 [facility] Comment on above: Order Comment: Speci men Type: BLOOD SPECIMEN Ordering Facility: [facility] Address: [address] [place] [address] Performed By: #### 2 4325-3, 77716-6 #### [facility] CLIA [id number] [address] [place] [address] [place] Basophils/100 WBC (Bld) 0.5 % Normal [facility] Comment on above: Order Comment: Speci men Type: BLOOD SPECIMEN Ordering Facility: [facility] Address: [address] [place] [address] Performed By: #### 2 4325-3, 46808-6 #### [facility] CLIA [id number] [address] [place] [address] [place] Differential cell count method Nom (Bld) Auto Normal [facility] Comment on above: Order Comment: Speci men Type: BLOOD SPECIMEN Ordering Facility: [facility] Address: [address] [place] [address] Performed By: #### 2 4325-3, 61990-2 #### [facility] CLIA [id number] [address] [place] [address] [place] Eosinophils (Bld) [#/Vol] 0.09 10*3/uL Normal <0.46 [facility] Comment on above: Order Comment: Speci men Type: BLOOD SPECIMEN Ordering Facility: [facility] Address: [address] [place] [address] Performed By: #### 2 4325-3, 05620-1 #### [facility] CLIA [id number] [address] [place] [address] [place] Eosinophils/100 WBC (Bld) 1.2 % Normal [facility] Comment on above: Order Comment: Speci men Type: BLOOD SPECIMEN Ordering Facility: [facility] Address: [address] [place] [address] Performed By: #### 2 4325-3, 79096-8 #### [facility] CLIA [id number] [address] [place] [address] [place] Erythrocyte distribution width (RBC) [Ratio] 14.5 % Normal 11.5-15.0 [facility] Comment on above: Order Comment: Speci men Type: BLOOD SPECIMEN Ordering Facility: [facility] Address: [address] [place] [address] Performed By: #### 2 4325-3, 31625-8 #### [facility] CLIA [id number] [address] [place] [address] [place] Hematocrit (Bld) [Volume fraction] 37.9 % Normal 36.0-46.0 [facility] Comment on above: Order Comment: Speci men Type: BLOOD SPECIMEN Ordering Facility: [facility] Address: [address] [place] [address] Performed By: #### 2 4325-3, 91612-0 #### [facility] CLIA [id number] [address] [place] [address] [place] Hemoglobin (Bld) [Mass/Vol] 12.9 g/dL Normal 11.5-15.5 [facility] Comment on above: Order Comment: Speci men Type: BLOOD SPECIMEN Ordering Facility: [facility] Address: [address] [place] [address] Performed By: #### 2 4325-3, 75274-2 #### [facility] CLIA [id number] [address] [place] [address] [place] Immature granulocytes (Bld) [#/Vol] 0.03 10*3/uL Normal <0.10 [facility] Comment on above: Order Comment: Speci men Type: BLOOD SPECIMEN Ordering Facility: [facility] Address: [address] [place] [address] Performed By: #### 2 4325-3, 05939-8 #### [facility] CLIA [id number] [address] [place] [address] [place] Immature granulocytes/100 WBC (Bld) 0.4 % Normal [facility] Comment on above: Order Comment: Speci men Type: BLOOD SPECIMEN Ordering Facility: [facility] Address: [address] [place] [address] Performed By: #### 2 4325-3, 67801-3 #### [facility] CLIA [id number] [address] [place] [address] [place] Lymphocytes (Bld) [#/Vol] 2.68 10*3/uL Normal 1.00-4.00 [facility] Comment on above: Order Comment: Speci men Type: BLOOD SPECIMEN Ordering Facility: [facility] Address: [address] [place] [address] Performed By: #### 2 4325-3, 11172-1 #### [facility] CLIA [id number] [address] [place] [address] [place] Lymphocytes/100 WBC (Bld) 36.3 % Normal [facility] Comment on above: Order Comment: Speci men Type: BLOOD SPECIMEN Ordering Facility: [facility] Address: [address] [place] [address] Performed By: #### 2 4325-3, 17868-0 #### [facility] CLIA [id number] [address] [place] [address] STATES [facility] MCH (RBC) [Entitic mass] 29.2 pg Normal 26.0-34.0 [facility] Comment on above: Order Comment: Speci men Type: BLOOD SPECIMEN Ordering Facility: [facility] Address: [address] [place], [place] [address] Performed By: #### 2 4324-3, 21465-3 #### [facility] CLIA [id number] [address] [place] [address] [place] MCHC (RBC) [Mass/Vol] 34.0 g/dL Normal 30.5-36.0 [facility] Comment on above: Order Comment: Speci men Type: BLOOD SPECIMEN Ordering Facility: [facility] Address: [address] [place] [address] Performed By: #### 2 3, 91931-8 #### [facility] CLIA [id number] [address] [place] [address] [place] MCV (RBC) [Entitic vol] 85.7 fL Normal 80.0-100.0 [facility] Comment on above: Order Comment: Speci men Type: BLOOD SPECIMEN Ordering Facility: [facility] Address: [address] [place] [address] Performed By: #### 2 3, 82159-1 #### [facility] CLIA [id number] [address] [place] [address] [place] Monocytes (Bld) [#/Vol] 0.48 10*3/uL Normal <0.87 [facility] Comment on above: Order Comment: Speci men Type: BLOOD SPECIMEN Ordering Facility: [facility] Address: [address] [place] [address] Performed By: #### 2 4324-3, 14406-7 #### [facility] CLIA [id number] [address] [place] [address] [place] Monocytes/100 WBC (Bld) 6.5 % Normal [facility] Comment on above: Order Comment: Speci men Type: BLOOD SPECIMEN Ordering Facility: [facility] Address: [address] [place] [address] Performed By: #### 2 4325-3, 94978-9 #### [facility] CLIA [id number] [address] [place] [address] [place] Neutrophils (Bld) [#/Vol] 4.06 10*3/uL Normal 1.45-7.50 [facility] Comment on above: Order Comment: Speci men Type: BLOOD SPECIMEN Ordering Facility: [facility] Address: [address] [place] [address] Performed By: #### 2 4325-3, 55811-0 #### [facility] CLIA [id number] [address] [place] [address] [place] Neutrophils/100 WBC (Bld) 55.1 % Normal [facility] Comment on above: Order Comment: Speci men Type: BLOOD SPECIMEN Ordering Facility: [facility] Address: [address] [place] [address] Performed By: #### 2 4325-3, 59738-5 #### [facility] CLIA [id number] [address] [place] [address] [place] Nucleated RBC (Bld) [#/Vol] 10*3/uL Normal <0.01 [facility] Comment on above: Order Comment: Speci men Type: BLOOD SPECIMEN Ordering Facility: [facility] Address: [address] [place] [address] Performed By: #### 2 4325-3, 34470-9 #### [facility] CLIA [id number] [address] [place] [address] [place] Nucleated RBC/100 WBC (Bld) [Ratio] 0.0 /100 WBC Normal [facility] Comment on above: Order Comment: Speci men Type: BLOOD SPECIMEN Ordering Facility: [facility] Address: [address] [place] [address] Performed By: #### 2 4325-3, 41350-0 #### [facility] CLIA [id number] [address] [place] [address] [place] Platelet mean volume (Bld) [Entitic vol] 8.3 fL Low 9.0-12.7 [facility] Comment on above: Order Comment: Speci men Type: BLOOD SPECIMEN Ordering Facility: [facility] Address: [address] [place] [address] Performed By: #### 2 4325-3, 36564-7 #### [facility] CLIA [id number] [address] [place] [address] [place] Platelets (Bld) [#/Vol] 280 10*3/uL Normal 150-400 [facility] Comment on above: Order Comment: Speci men Type: BLOOD SPECIMEN Ordering Facility: [facility] Address: [address] [place] [address] Performed By: #### 2 4325-3, 93475-3 #### [facility] CLIA [id number] [address] [place] [address] [place] RBC (Bld) [#/Vol] 4.42 10*6/uL Normal 3.90-5.20 [facility] Comment on above: Order Comment: Speci men Type: BLOOD SPECIMEN Ordering Facility: [facility] Address: [address] [place] [address] Performed By: #### 2 4325-3, 49395-3 #### [facility] CLIA [id number] [address] [place] [address] [place] WBC (Bld) [#/Vol] 7.38 10*3/uL Normal 3.70-11.00 [facility] Comment on above: Order Comment: Speci men Type: BLOOD SPECIMEN Ordering Facility: [facility] Address: [address] [place] [address] Performed By: #### 2 4325-3, 03181-5 #### [facility] CLIA [id number] [address] [place] [address] [place] HBV surface Ag Ser Qlon 07-27 HBV surface Ag Ql (S) Negative Normal Negative [facility] Comment on above: Order Comment: Speci men Type: BLOOD SPECIMEN Ordering Facility: [facility] Address: [address] [place] [address] Performed By: #### 7 3752-8, 5195-3, 61820-6 #### [facility] CLIA [id number] [address] [place] [address] [place] HCV Ab Ser Qlon 08-19-2024 HCV Ab Ql (S) Negative Normal Negative [facility] Comment on above: Order Comment: Speci men Type: BLOOD SPECIMEN Ordering Facility: [facility] Address: [address] [place] [address] Result Comment: The result suggests no evidence of infection with Hepatitis C virus. Should recent infection be suspected, repeat testing may be considered 4-6 weeks after this draw. Performed By: #### 7 3752-8, 5195-3, 17936-0 #### [facility] CLIA [id number] [address] [place] [address] [place] HIV 1+2 Ab IA Qlon HIV 1 and 2 Ab IA.rapid Nom (S/P/Bld) Normal [facility] Comment on above: Order Comment: Speci men Type: BLOOD SPECIMEN Ordering Facility: [facility] Address: [address] [place] [address] Result Comment: Test not indicated. Performed By: #### 7 3752-8, 5195-3, 17277-2 #### [facility] CLIA [id number] [address] [place] [address] [place] HIV 1+2 Ab+HIV1 p24 Ag IA Ql Non-Reactive Normal Nonreactive [facility] Comment on above: Order Comment: Speci men Type: BLOOD SPECIMEN Ordering Facility: [facility] Address: [address] [place] [address] Performed By: #### 7 3752-8, 5195-3, 88099-7 #### [facility] CLIA [id number] [address] [place] [address] [place] HIV immunoassay testing algorithm interpretation (S/P/Bld) [Interp] Normal [facility] Comment on above: Order Comment: Speci men Type: BLOOD SPECIMEN Ordering Facility: [facility] Address: [address] [place] [address] Result Comment: No e vidence of HIV-1 or HIV-2 infection. Should recent infection be suspected, repeat testing may be considered 2-3 weeks after this draw. [place] Rev. Code 3701.243(E): This information has been [...] diagnoses. Performed By: #### 7 3752-8, 5195-3, 87534-9 #### [facility] CLIA [id number] [address] [place] [address] [place] HbA1c (Bld)on 08-19-2024 Average glucose Estimated from glycated hemoglobin (Bld) [Mass/Vol] 103 mg/dL Normal [facility] Comment on above: Order Comment: Speci men Type: BLOOD SPECIMEN Ordering Facility: [facility] Address: [address] [place] [address] Result Comment: eAG: (Estimated average glucose) is a calculated value from HgbA1c and is appliance service representative of the average blood glucose level in the last 2-3 month period. Performed By: #### 7 3752-8, 5195-3, 29394-1 #### [facility] CLIA [id number] [address] [place] [address] [place] HbA1c (Bld) [Mass fraction] 5.2 % Normal 4.3-5.6 [facility] Comment on above: Order Comment: Good cheema Type: BLOOD SPECIMEN Ordering Facility: [facility] Address: [address] [place] [address] Result Comment: Amer [place] Diabetes Association guidelines indicate that patients with HgbA1c in the range 5.7-6.4% are at increased risk for development of diabetes, and intervention by lifestyle modification may be beneficial. HgbA1c greater or equal to 6.5% is considered diagnostic of diabetes. Performed By: #### 7 3752-8, 5195-3, 23854-8 #### [facility] CLIA [id number] [address] [place] [address] [place] RUBELLA IGG ANTIBODYon 08-19 RUBELLA IGG AB, QUAL Positive Normal Positive [facility] Comment on above: Order Comment: Good cheema Type: BLOOD SPECIMEN Ordering Facility: [facility] Address: [address] [place] [address] Result Comment: The result suggests recent or past exposure to Rubella virus or history of Rubella vaccination. Positive result may also be seen due to presence of passively-transferred antibodies. Please correlate with patient's history. Performed By: #### 7 3752-8, 5195-3, 24339-3 #### [facility] CLIA [id number] [address] [place] [address] [place] Reagin and Treponema pallidu m IgG and IgM [Interp]on 08-19-2024 T. pallidum IgG+IgM IA Ql (S) Non-Reactive Normal Nonreactive [facility] Comment on above: Order Comment: Good cheema Type: BLOOD SPECIMEN Ordering Facility: [facility] Address: [address] [place] [address] Performed By: #### 7 3752-8, 5-3, 42191-4 #### [facility] CLIA [id number] [address] [place] [address] [place] Reagin+T pallidum IgG+IgM Se rPl-Impon 08-19-2024 Reagin and Treponema pallidum IgG and IgM [Interp] Cannot exclude recent Treponemal infection if specimen collected within 7-10 days after appearance of suspect lesions or 2-3 weeks after an exposure. Clinical correlation is required. Normal [facility] Comment on above: Order Comment: Speci men Type: BLOOD SPECIMEN Ordering Facility: [facility] Address: [address] [place] [address] Performed By: #### 7 3752-8, 5195-3, 12150-7 #### [facility] CLIA [id number] [address] [place] [address] [place] TYPE + SCREEN PRENATALon ABO A Normal [facility] Comment on above: Order Comment: Speci men Type: BLOOD SPECIMEN Ordering Facility: [facility] Address: [address] [place] [address] Performed By: #### 7 3752-8, 5-3, 87083-7 #### [facility] CLIA [id number] [address] [place] [address] [place] Rh Nom (Bld) Positive Normal [facility] Comment on above: Order Comment: Speci men Type: BLOOD SPECIMEN Ordering Facility: [facility] Address: [address] [place] [address] Performed By: #### 7 3752-8, 5-3, 18541-7 #### [facility] CLIA [id number] [address] [place] [address] [place] TYPE AND SCREEN EXPIRATION 08/22/2024 23:59 Normal [facility] Comment on above: Order Comment: Speci men Type: BLOOD SPECIMEN Ordering Facility: [facility] Address: [address] [place] [address] Performed By: #### 7 3752-8, 5195-3, 46087-0 #### [facility] CLIA [id number] [address] [place], [place] [address] [address] [place] [id number] PLUSon 08-10-2024 Cell-free DNA./Cell-free DNA.total Dosage of chromosome-specific cfDNA (cfDNA) [Molar fraction] 17% Normal [facility] Comment on above: Order Comment: Speci men Type: BLOOD SPECIMEN Ordering Facility: [facility] Address: [address] [place] [address] Performed By: #### 2 4325-3, 75503-1 #### [facility] CLIA [id number] [address] [place] [address] [place] Chr 13+18+21+X+Y aneuploidy Dosage of chromosome-specific cfDNA Ql (cfDNA) Negative Normal [facility] Comment on above: Order Comment: Speci men Type: BLOOD SPECIMEN Ordering Facility: [facility] Address: [address] [place] [address] Performed By: #### 2 4325-3, 43567-4 #### [facility] CLIA [id number] [address] [place] [address] [place] Chr 21 trisomy Dosage of chromosome-specific cfDNA Ql (cfDNA) Negative Normal [facility] Comment on above: Order Comment: Speci men Type: BLOOD SPECIMEN Ordering Facility: [facility] Address: [address] [place] [address] Performed By: #### 2 4325-3, 50207-2 #### [facility] CLIA [id number] [address] [place] [address] [place] Chr X and Y aneuploidy risk Sequencing Ql (cfDNA) [Interp] Not detected Normal [facility] Comment on above: Order Comment: Speci men Type: BLOOD SPECIMEN Ordering Facility: [facility] Address: [address] [place] [address] Result Comment: Not Detected Not Detected Performed By: #### 2 5-3, 76727-2 #### [facility] CLIA [id number] [address] [place] [address] [place] Citation Jamarcus (Reference lab test) Comment Normal [facility] Comment on above: Order Comment: Speci men Type: BLOOD SPECIMEN Ordering Facility: [facility] Address: [address] [place] [address] Result Comment: 1. P jazmine MONGE, et al. Yasmin Med. 2012;14(3):296-305. 2. Magda MANDUJANO, et al. Prenat Diag. 2013;33(6):591-597. 3. Justo C, et al. Clin Chem. 2015 Apr;61(4):608-616. 4. Juan Jose MONGE, et al. Yasmin Med. 2011;13(11):913-920. 5. ACOG/SMFM Practice Bulletin No. 226, Nov 2019. Performed By: #### 2 3, 09081-0 #### [facility] CLIA [id number] [address] [place] [address] Gestational age Estimated from conception date Reddy Normal [facility] Comment on above: Order Comment: Speci men Type: BLOOD SPECIMEN Ordering Facility: [facility] Address: [address] [place] [address] Performed By: #### 2 4324-3, 86492-9 #### [facility] CLIA [id number] [address] [place] [address] [place] GESTATIONALAGE AGE > OR = 9W Yes Normal [facility] Comment on above: Order Comment: Speci men Type: BLOOD SPECIMEN Ordering Facility: [facility] Address: [address] [place] [address] Performed By: #### 2 5-3, 18558-9 #### [facility] CLIA [id number] [address] [place] [address] Laboratory comment Jamarcus (Report) Comment Normal [facility] Comment on above: Order Comment: Good cheema Type: BLOOD SPECIMEN Ordering Facility: [facility] Address: [address] [place] [address] Result Comment: The MaterniT(R) 21 PLUS laboratory-developed test (LDT) analyzes circulating cell-free DNA from a maternal blood sample. This test is used for screening purposes and not diagnostic. Clinical correlation is recommended. Validation data on twin pregnancies is limited and the ability of this test to detect aneuploidy in higher multiple gestations has not yet been validated. Performed By: #### 2 4325-3, 76326-7 #### [facility] CLIA [id number] [address] [place] [address] neurosurgery research director name Nom (Provider) Comment Normal [facility] Comment on above: Order Comment: Good cheema Type: BLOOD SPECIMEN Ordering Facility: [facility] Address: [address] [place] [address] Result Comment: This specimen showed an expected representation of chromosome 21, 18 and 13 material. Clinical correlation is suggested. Comment Ricky Garcia MD, PhD, Director, [employer] Performed By: #### 2 4325-3, 62297-1 #### [id number] [address] [place] [address] LIMITATIONS OF THE TEST Comment Normal [facility] Comment on above: Order Comment: Good cheema Type: BLOOD SPECIMEN Ordering Facility: [facility] Address: [address] [place] [address] Result Comment: Whil e the results of [...] and Fragmin(R)). Performed By: #### 2 4325-3, 72101-6 #### [facility] CLIA [id number] [address] [place] [address] [place] Monosomy X risk Dosage of chromosome-specific cfDNA Ql (Plasma cell-free+WBC DNA) [Interp] Not detected [facility] Comment on above: Order Comment: Speci men Type: BLOOD SPECIMEN Ordering Facility: [facility] Address: [address] [place] [id number] Performed By: #### 2 4325-3, 45575-4 #### [facility] CLIA [id number] [address] [place] [address] NEGATIVE PREDICTIVE VALUE Note [facility] Comment on above: Order Comment: Good cheema Type: BLOOD SPECIMEN Ordering Facility: [facility] Address: [address] [place] [address] Result Comment: The Negative Predictive Value (NPV) for trisomy 21, 18, and 13 is greater than 99%. The NPV for SCA and ESS cannot be calculated as SCA and ESS are only reported when an abnormality is detected. Performed By: #### 2 4325-3, 26946-1 #### [facility] CLIA [id number] [address] [place] [address] PERFORMANCE CHARACTERISTICS Note [facility] Comment on above: Order Comment: Good cheema Type: BLOOD SPECIMEN Ordering Facility: [facility] Address: [address] [place] [address] Result Comment: ! Sex ! Accuracy: 99.4% [...] ! ! ! * As reported in [facility] database nstd37 [https://www.ncbi.nlm.nih.gov/dbvar/studies/nstd37/ ] # [...] only. Performed By: #### 2 4325-3, #### [facility] [id number] [address] [place] [address] [place] POSITIVE PREDICTIVE VALUE N/A [facility] Comment on above: Order Comment: Speci men Type: BLOOD SPECIMEN Ordering Facility: [facility] Address: [address] [place] [address] Performed By: #### 2 4325-3, 73851-7 #### [facility] CLIA [id number] [address] [place] [address] [place] Reference Lab Test Method Comment [facility] Comment on above: Order Comment: Speci men Type: BLOOD SPECIMEN Ordering Facility: [facility] Address: [address] [place] [address] Result Comment: See Notes Circulating cell-free DNA [...] and 22. Performed By: #### 2 4325-3, 08858-0 #### [facility] CLIA [id number] [address] [place] [address] [place] Service comment (Unsp spec) [Interp] Comment [facility] Comment on above: Order Comment: Speci men Type: BLOOD SPECIMEN Ordering Facility: [facility] Address: [address] [place] [address] Result Comment: See Notes [employer]. is a subsidiary of [employer], using the brand [employer]. This test was developed and its performance characteristics determined by [employer]. It has not been cleared or approved by the Food and Drug Administration. This laboratory is certified under the Clinical Laboratory Improvement Amendments (CLIA) as qualified to perform high complexity clinical laboratory testing and accredited by the [employer] [place] [employer] (CAP). If there is future clinical need for adding MaterniT GENOME testing, this specimen will be available until term. [facility] samples will not be retained beyond 60 days. [facility] patients will have to send a new sample for re-sequencing ([facility] Test Code: 900347). Performed By: #### 2 4325-3, 33221-2 #### [facility] CLIA [id number] [address] [place] [address] [place] Sex Dosage of chromosome-specific cfDNA Nom (cfDNA) Comment [facility] Comment on above: Order Comment: Speci men Type: BLOOD SPECIMEN Ordering Facility: [facility] Address: [address] [place] [address] Result Comment: Cons istent with Female Performed By: #### 2 5-3, 26900-3 #### [facility] CLIA [id number] [address] [place] [address] [place] Test performance information Jamarcus (Unsp spec) Comment [facility] Comment on above: Order Comment: Speci men Type: BLOOD SPECIMEN Ordering Facility: [facility] Address: [address] [place] [address] Result Comment: The performance characteristics of the MaterniT(R) 21 PLUS laboratory-developed test (LDT) have been determined in a clinical validation study with women at increased risk for chromosomal aneuploidy.[1-4] Performed By: #### 2 4324-3, 81568-3 #### [facility] CLIA [id number] [address] [place] [address] [place] Trisomy 13 risk Dosage of chromosome-specific cfDNA Ql (cfDNA) [Interp] Negative [facility] Comment on above: Order Comment: Speci men Type: BLOOD SPECIMEN Ordering Facility: [facility] Address: [address] [place] [address] Performed By: #### 2 4325-3, 68547-3 #### [facility] CLIA [id number] [address] [place] [address] OF [place] Trisomy 18 risk Dosage of chromosome-specific cfDNA Ql (Plasma cell-free+WBC DNA) [Interp] Negative [facility] Comment on above: Order Comment: Speci men Type: BLOOD SPECIMEN Ordering Facility: [facility] Address: [address] [place], [place] [address], [place] [address] Performed By: #### 2 4325-3, 82612-5 #### [facility] LUDMILA [id number] [address] [place] [address] [facility] Sandy 08-06-2024 CNPN Telephone (OGFVWE) ADRIANE CARD ([id number]) 1985 F Date Time Provider Department 08/06/24 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 Electronically signed on: 08/05/2024 Automobile Engine Assembler: BERNADINE Transcribe Date/Time: Aug 05 2024 11:33A Dictated by : SALVADOR LANG MD This examination was interpreted and the report reviewed and electronically signed by: SALVADOR LANG MD on Aug 05 2024 11:35AM EST [id number] [facility] PACO US AXILLA ONLY RTon 07-26 PACO US AXILLA ONLY RT * * *Final Report* * * DATE OF EXAM: Aug 05 2024 11:06AM WRU 0592 - PACO US AXILLA ONLY RT / PROCEDURE REASON: 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) * * * * Physician Interpretation * * * * #[id number] - PACO US AXILLA ONLY LT #[id number] - PACO US AXILLA ONLY RT HISTORY: [...] Salvador Lang M.D. Electronically signed on: 08/05/2024 Automobile Engine Assembler: BERNADINE Transcribe Date/Time: Aug 05 2024 11:33A Dictated by : SALVADOR LANG MD This examination was interpreted and the report reviewed and electronically signed by: SALVADOR LANG MD on Aug 05 2024 11:35AM EST [id number] [facility] No Panel Informationon 08-05 IMPRESSION: There are no suspicious sonographic findings in the bilateral axillary regions. Return to annual screening mammogram is recommended. Annual mammogram will be due at age 41. BI-RADS Category 2: Benign Interpreting Radiologist: Salvador Lang M.D. Electronically signed on: 08/05/2024 Automobile Engine Assembler: BERNADINE Transcribe Date/Time: Aug 05 2024 11:33A Dictated by : SALVADOR LANG MD This examination was interpreted and the report reviewed and electronically signed by: SALVADOR LANG MD on Aug 05 2024 11:35AM EST DIVISION OF RADIOLOGY Radiology Study observation (narrative) [facility] No Panel InformationOrdered By: Ccf Provider on 08-05-2024 [facility] US Axilla - lefton * * *Final Report* * * DATE OF EXAM: Aug 05 2024 11:06AM WRU 0591 - [facility] US AXILLA ONLY LT / PROCEDURE REASON: 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) * * * * Physician Interpretation * * * * #[id number] - PACO US AXILLA ONLY LT #[id number] - PACO US AXILLA ONLY RT HISTORY: [...] or fluid collections. DIVISION OF RADIOLOGY Provider, [facility] - 08/05/2024 * * *Final Report* * * DATE OF EXAM: Aug 05 2024 11:06AM WRU 0591 - PACO US AXILLA ONLY LT / PROCEDURE REASON: 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) * * * * Physician Interpretation * * * * #[id number] - PACO US AXILLA ONLY LT #[id number] - PACO US AXILLA ONLY RT HISTORY: [...] Salvador Lang M.D. Electronically signed on: 08/05/2024 Automobile Engine Assembler: [facility] Transcribe Date/Time: Aug 05 2024 11:33A Dictated by : SALVADOR LANG MD This examination was interpreted and the report reviewed and electronically signed by: SALVADOR LANG MD on Aug 05 2024 11:35AM [facility] US Axilla - righton 08-06-19 25 * * *Final Report* * * DATE OF EXAM: Aug 05 2024 11:06AM U 0592 - [facility] US AXILLA ONLY RT / PROCEDURE REASON: 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) * * * * Physician Interpretation * * * * #[id number] - PACO US AXILLA ONLY LT #[id number] - PACO US AXILLA ONLY RT HISTORY: [...] or fluid collections. DIVISION OF RADIOLOGY Provider, [facility] - 08/05/2024 * * *Final Report* * * DATE OF EXAM: Aug 05 2024 11:06AM WRU 0592 - PACO US AXILLA ONLY RT / PROCEDURE REASON: 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) * * * * Physician Interpretation * * * * #[id number] - PACO US AXILLA ONLY LT #[id number] - PACO US AXILLA ONLY RT HISTORY: [...] Salvador Lang M.D. Electronically signed on: 08/05/2024 Automobile Engine Assembler: BERNADINE Transcribe Date/Time: Aug 05 2024 11:33A Dictated by : SALVADOR LANG MD This examination was interpreted and the report reviewed and electronically signed by: SALVADOR LANG MD on Aug 05 2024 11:35AM EST [facility] Bacteria Ur Culton 5 Bacteria identified Cx Nom (U) CULTURE, URINE: No growth (<1,000 CFU/ml) [facility] Comment on above: Performed By: #### 7 3752-8, 5195-3, 32300-2 #### [facility] CLIA [id number] [address] [place] [address] [place] C. trachomatis+N. gonorrhoea e DNA YAS+probe Ql (Unsp spec)on 08-04-2024 C. trachomatis rRNA YAS+probe Ql (Unsp spec) Not detected Not detected [facility] Interpretation and review of laboratory results Normal [facility] N. gonorrhoeae rRNA YAS+probe Ql (Unsp spec) Not detected Not detected [facility] This FDA-approved assay has been modified to accept rectal swabs self-collected in a healthcare setting. For self-collected rectal swabs, the test was developed and its performance characteristics determined by the [facility]'s [facility] Pathology and Laboratory Medicine [place] ([facility]). It has not been cleared or approved by the FDA. [facility] is regulated under CLIA as qualified to perform high-complexity testing. This test is used for clinical purposes. It should not be regarded as investigational or for research. [facility] C. trachomatis rRNA YAS+probe Ql (Unsp spec) Not detected Normal Not detected [facility] Comment on above: Order Comment: Speci men Type: SWABOrdering Facility: [facility] Address: [address] [place] [address] Performed By: #### 3 6902-5 ####[facility] [id number] [place] [address] [place] N. gonorrhoeae rRNA YAS+probe Ql (Unsp spec) Not detected Normal Not detected [facility] Comment on above: Order Comment: Speci men Type: SWABOrdering Facility: [facility] Address: [address] [place] [address] Performed By: #### 3 6902-5 ####[facility] [id number] [place] [address] [place] POC BODY COVERER ULTRASOUNDon 08-05-19 25 Indication Viability; confirm cardiac [...] Read By: Jen Bowling CNM MATERNAL MEDICINE [facility] Radiology Study observation (narrative) [facility] CNOVon 07-28-2024 CNOV Office Visit (AGGENS3) BAILEYADRIANE ABDI ([id number]) 1985 F Date Time Provider Department 07/28/24 11:00 AM SANJUANITA RODARTE AGGENS3 During your visit today, we recorded the following information about you: Weight Height 62.6 kg 1.676 m Sanjuanita Rodarte MD 07/28/2024 11:39 AM Signed Sanjuanita Rodarte MD Surgical Oncology [address] [facility], [address] [place] [address] Name: Adriane Avalos Age: [age] year old Sex: Adriane Avalos : 1985 Referring Provider: No ref. provider found Subjective CHIEF COMPLAINT: Melanoma surveillance ONCOLOGIC HISTORY: 03/03/24: Melanoma of upper back 04/03/24: WLE + SLNB, path: [id number] Anatomic Location: Upper back Breslow Depth: 1.5mm Ulceration: No Mitosis: 1/mm2 Bolivar Lymph Node Biopsy: Yes Number of positive [...] breast (HCC) [C43.59] Order(s):US AXILLA ONLY LEFT [[id number]] Order #: [id number] FUTURE US AXILLA ONLY RIGHT [[id number]] Order #: [id number] FUTURE Prescriptions as of 07/28/2024 - iv [...] GERD ( (more content not included)... Normal [facility] CNOVon 07-16-2024 CNOV Office Visit (OBGYWM ) ADRIANE AVALOS ([id number]) 1985 F Date Time Provider Department 07/16/24 10:45 AM ARIN TAYLOR OBGYWMihaela During your visit today, we recorded the following information about you: Blood pressure Weight Last Period 10460 61.2 kg 05/23/24 Arin Tayolr APRN.SALESPERSON [employer] 07/16/2024 12:08 PM Signed Drafting Supervisor offered: Patient declines. Adriane Aavlos is a 39 year old female who presents for problem visit of positive test. HPI: Adriane presents for confirmation of . Taking PNV. was unplanned, but she is accepting. LMP 05/23/24. OB History Gravida5 Para3 Term2 Preterm1 AB2 Living3 SAB2 IAB0 Ectopic0 Multiple0 Live Births3 Binder Layer History LMP: 05/23/2024 (Exact Date), Age at Menarche: 14 Age at First : Age at Menopause: Binder Layer History Comments: Sexual Activity: Yes; Male Contraception: [...] HISTORY Procedure Laterality Date - IUD INSERTION (GROCERY CLERK CHECKING DEPT)_*FL 01/29/2008 Mirena - IUD REMOVAL (GROCERY CLERK CHECKING DEPT)_*FL 06/28/2008 Mirena - KIDNEY STONE SURGERY HX 09/2021 - PAST SURGICAL HISTORY OF 2024 skin lesion biopsy, back FAMILY HISTORY Problem Relation Age of Onset - Breast Cancer Maternal Grandmother 75 - Melanoma Maternal Grandmother one on nose - Diabetes Maternal Grandfather - Heart Maternal Grandfather [place]- Social History Tobacco Use - Smoking status: [...] Assessed 07/16/2024 REVIEW OF SYSTEMS Expanded ROS: GROCERY CLERK CHECKING: + test Allergies and current medication updated:Yes SENSITIVE EXAM: The sensitive examination was discussed with the Patient or Patient's Authorized Mine Car Mechanic. As applicable, any other physician, advance practice provider, medical student, or other health professional student that will be observing or involved in the sensitive examination for educational or training purposes was discussed with the Patient or Authorized Mine Car Mechanic. The Patient or Authorized Mine Car Mechanic has agreed to proceed with the sensitive examination. (Sensitive examination includes inspection and/or palpation of the breasts, pelvis, prostate and anorectal regions). EXAM: BP 104/60 Wt 135 lb (61.2kg) LMP 05/23/2024 GENERAL: pleasant, female in no apparent distress HEENT: Normocephalic, atraumatic, mucus membranes moist, and no lesions CHEST: Normal inspiratory effort PELVIC: external genitalia normal, normal Bartholin's glands, urethra, Loyalhanna's glands, no vulvar lesions, normal appearing perineal body and perianal region NEURO: alert and oriented x3,exam grossly non-focal EXTREMITIES: normal ASSESSMENT AND PLAN: 1. Encounter for test, result positive (HCC) - ICD9: V72.42, ICD10: Z32.01 (primary diagnosis) - Enrolled in home care provider - Recommend continuing PNV - Reviewed avoiding environmental exposures - Schedule new OB visit 2. with uncertain dates in first trimester (HCC) - ICD9: V22.1, ICD10: Z34.91 - POCUS confirms IUP - POCUS inconsistent with LMP. Confirm MORENO with NT RTO for new OB visit or sooner as needed. Arin Taylor, KAMLA.AURY Medical Decision Making: Problems: Moderate: New problem with uncertain prognosis Data: Unique test(s) ordered: 2 Risk: Minimal: Minimal risk from testing/treatment Medical Decision Reyna (more content not included)... [facility] OUTSIDE SURG PATH SLIDE REVI EWon 05-28-2024 AP DISCLAIMER [facility] Comment on above: Order Comment: Good cheema Type: BLOOD SPECIMEN Ordering Facility: [facility] Address: [address] [place] [address] Result Comment: Jg gómez Developed Test (LDT) Disclaimer: Performance characteristics of immunohistochemical, immunofluorescent, and chromogenic in-situ hybridization tests have been determined by the performing laboratory within [facility]'s [facility] Pathology and Laboratory Medicine Department ([facility], [facility], [facility], [facility], [facility], [facility], or [facility]) in a manner consistent with CLIA requirements. One or more of these tests may not have been cleared or approved by the FDA. [facility] is regulated under CLIA as qualified to perform high-complexity testing. These tests are used for clinical purposes. These should not be regarded as investigational or for research. Positive and negative controls stain appropriately. Performed By: #### 7 3752-8, 5195-3, 59469-9 #### [facility] CLIA [id number] [address] [place], [place] [address] [place] [address] [place] CASE REPORT [facility] Comment on above: Order Comment: Good cheema Type: BLOOD SPECIMEN Ordering Facility: [facility] Address: [address] [place] [address] Result Comment: Surg ical Pathology Report Case: [id number] Authorizing Provider: Valeria Werner MD Collected: 05/28/2024 11:04 AM Ordering Location: [facility] Received: 05/28/2024 11:03 AM [facility] Pathologist: Linda Coates MD Specimen: Slide(s), 1 SLIDE [id number] Performed By: #### 7 3752-8, 5195-3, 53474-5 #### [facility] CLIA [id number] [address] [place] [address] FINAL DIAGNOSIS [facility] Comment on above: Order Comment: Speci men Type: BLOOD SPECIMEN Ordering Facility: [facility] Address: [address] [place] [address] Result Comment: A. S kin, right superior medial upper back, shave biopsy ([id number], A1): - Melanoma, see synoptic report. JK/EB 05/28/2024 at 1012 EDT Performed By: #### 7 3752-8, 5195-3, 58178-9 #### [facility] CLIA [id number] [address] [place] [address] FINAL PERFORMING LAB Normal [facility] Comment on above: Order Comment: Speci men Type: BLOOD SPECIMEN Ordering Facility: [facility] Address: [address] [place] [address] Result Comment: Diag nostic interpretation performed at: [facility], [address] [place], [place] [address] CLIA# [id number] [employer] T[employer] Cloth: Eamon Forte MD Performed By: #### 7 3752-8, 5195-3, 12855-1 #### [facility] CLIA [id number] [address] [place], [place] [address] [facility] SYNOPTIC REPORT [facility] Comment on above: Order Comment: Speci men Type: BLOOD SPECIMEN Ordering Facility: [facility] Address: [address] [place] [address] Result Comment: JONNY PEREZ MELANOMA OF THE [...] pT2a Performed By: #### 7 3752-8, 5195-3, 00350-8 #### [facility] CLIA [id number] [address] [place] [address] [place] US CERVICAL LYMPH NODE MAPPI NGon 05-13-2024 US CERVICAL LYMPH NODE MAPPING * * *Final Report* * * DATE OF EXAM: May 13 2024 11:54AM [facility] 1049 - US CERVICAL LYMPH NODE MAPPING [...] cervical node corresponds to a palpable abnormality. Automobile Engine Assembler: [facility] Transcribe Date/Time: May 13 2024 11:58A Dictated by : CHAZ MARIE MD This examination was interpreted and the report reviewed and electronically signed by: CHAZ MARIE MD on May 13 2024 12:00PM EST [id number] [facility] US Head and Neckon Radiology Study observation (narrative) [facility] IMPRESSION: No pathologic cervical lymphadenopathy. Non-enlarged right posterior cervical node corresponds to a palpable abnormality. Automobile Engine Assembler: [facility] Transcribe Date/Time: May 13 2024 11:58A Dictated by : CHAZ MARIE MD This examination was interpreted and the report reviewed and electronically signed by: CHAZ MARIE MD on May 13 2024 12:00PM [facility] DIVISION OF RADIOLOGY * * *Final Report* * * DATE OF EXAM: May 13 2024 11:54AM [facility] 1049 [facility] CERVICAL LYMPH NODE MAPPING / PROCEDURE [...] cervical node corresponds to a palpable abnormality. Automobile Engine Assembler: [facility] Transcribe Date/Time: May 13 2024 11:58A Dictated by : CHAZ MARIE MD This examination was interpreted and the report reviewed and electronically signed by: CHAZ MARIE MD on May 13 2024 12:00PM [facility] US Head and NeckOrdered By: Ccf Provider on 05-13-2024 [facility] CNOVSPon 05-01-2024 [facility]OVSP [facility] ADRIANE AVALOS ([id number]) 1985 F Date Time Provider Department 05/01/24 9:00 AM [facility] During your visit today, we recorded the following information about you: Temperature Pulse Respiration Blood pressure 96.8 degrees 76/minute 20/minute 106/85 Weight Height 59.6 kg 1.689 m Valeria Werner MD 05/01/2024 10:58 AM Signed [facility] Patient name: Adriane Avalos Date of service: May 01, 2024 Diagnosis Stage IIIA melanoma, upper back Oncology History Stage IIIA melanoma of upper back 03/03/24: melanoma of upper back: Depth 1.5 mm. Ulceration not present. Performed at [facility] Dermatology 04/03/24 WLE and SLNB: no residual melanoma. Bolivar lymph node with metastatic melanoma in 1/2 [...] SURGICAL HISTORY Procedure Laterality Date IUD INSERTION (GROCERY CLERK CHECKING DEPT)_*FL 01/29/2008 Mirena IUD REMOVAL (GROCERY CLERK CHECKING DEPT)_*FL 06/28/2008 Mirena KIDNEY STONE SURGERY HX 09/2021 PAST SURGICAL HISTORY OF 2024 skin lesion biopsy, back Family History FAMILY HISTORY Problem Relation Age of Onset Breast Cancer Maternal Grandmother 75 Melanoma Maternal Grandmother Diabetes Maternal Grandfather Heart Maternal Grandfather [place]- Social History Social History Tobacco Use Smoking [...] all pre-disease (more content not included)... [facility] C. trachomatis+N. gonorrhoea e DNA AYS+probe Ql (Unsp spec)on 04-23-2024 C. trachomatis rRNA YAS+probe Ql (Unsp spec) Not detected Normal Not detected [facility] Comment on above: Order Comment: Speci men Type: BLOOD SPECIMEN Ordering Facility: [facility] Address: [address] [place] [address] Performed By: #### 2 4325-3, 57627-2 #### [facility] [id number] [address] [place] [address] [place] N. gonorrhoeae rRNA YAS+probe Ql (Unsp spec) Not detected Normal Not detected [facility] Comment on above: Order Comment: Speci men Type: BLOOD SPECIMEN Ordering Facility: [facility] Address: [address] [place] [address] Performed By: #### 2 4325-3, 53620-6 #### [facility] CLIA [id number] [address] [place] [address] [place] CNOVon 04-23-2024 CNOV Office Visit (OBGYWM ) ADRIANE AVALOS ([id number]) 1985 F Date Time Provider Department 04/23/24 3:30 PM LISA CARNEY OBGYWM During your visit today, we recorded the following information about you: Blood pressure Weight Height Last Period 120/70 62.3 kg 1.676 m 04/18/24 Lisa Carney APRN.SALESPERSON [employer]ARD [employer] 04/23/2024 4:15 PM Signed Patient declined rail technician. Adriane is a 39 year old who presents for an annual gynecologic exam without complaints. LMP 04/18/2024 Menses: cycles every 25 days and 5-6 days of flow. Contraception: progesterone only HPV vaccine: No Last Pap: 05/20/2018 normal HPV: 05/20/2018 negative History of abnormal pap: No Last mammogram: 2018normal OB History Gravida5 Para3 Term2 Preterm1 AB2 Living3 SAB2 IAB0 Ectopic0 Multiple0 Live Births3 Binder Layer History LMP: 04/18/2024 (Exact Date), Having periods Age at Menarche: 14 Age at First : Age at Menopause: Binder Layer History Comments: Sexual Activity: Yes; Male Contraception: Vasectomy, Pill Menstrual Tracking History Flowsheet Row Office Visit from 04/23/2024 in OB/Gynecology Period Cycle (Days) 28 Period Duration (Days) 6 Menstrual Flow Moderate PAST MEDICAL HISTORY Diagnosis Date Anemia GERD (gastroesophageal reflux disease) History of pre-eclampsia kidney stones Known medical problems melanoma back depression PAST SURGICAL HISTORY Procedure Laterality Date IUD INSERTION (GROCERY CLERK CHECKING DEPT)_*FL 01/29/2008 Mirena IUD REMOVAL (GROCERY CLERK CHECKING DEPT)_*FL 06/28/2008 Mirena KIDNEY STONE SURGERY HX 09/2021 PAST SURGICAL HISTORY OF 2024 skin lesion biopsy, back FAMILY HISTORY Problem Relation Age of Onset Breast Cancer Maternal Grandmother 75 Melanoma Maternal Grandmother Diabetes Maternal Grandfather Heart Maternal Grandfather [place]- SOCIAL HISTORY Social History Tobacco Use Smoking [...] discussed with the Patient or Patient's Authorized Mine Car Mechanic. As applicable, any other physician, advance practice provider, medical student, or other health professional student that will be observing or involved in the sensitive examination for educational or training purposes was discussed with the Patient or Authorized Mine Car Mechanic. The Patient or Authorized Mine Car Mechanic has agreed to proceed with the sensitive [...] external genitalia normal, normal Bartholin's glands, urethra, Loyalhanna's glands, no vulvar lesions, no cervical lesions, [...] year or sooner as needed Lisa Carney APRN.SALESPERSON [employer] Allergies As of Date: 04/23/2024 (No Known Allergies) Date Reviewed: 04/23/2024 Reviewed by: Lisa Carney APRN.SALESPERSON [employer] - Fully Assessed Reason for Visit: Well Woman [1463] Primary Visit Diagnosis:Encounter for national secretary (more content not included)... Normal [facility] CT ABD/PEL W IVCONon 025 CT ABD/PEL W IVCON * * *Final Report* * * DATE OF EXAM: Apr 23 2024 11:09AM [facility] 0530 - CT ABD/PEL W IVCON [...] nephrolithiasis. 7. 4.1 cm left adnexal cyst. Automobile Engine Assembler: BERNADINE Transcribe Date/Time: Apr 23 2024 1:04P Dictated by : AROLDO SHIRLEY MD This examination was interpreted and the report reviewed and electronically signed by: AORLDO SHIRLEY MD on Apr 23 2024 1:20PM EST [id number] Normal [facility] CT Abdomen and Pelvis W cont rast Solange 04-23-2024 * * *Final Report* * * DATE OF EXAM: Apr 23 2024 11:09AM [facility] 0530 - CT ABD/PEL W IVCON [...] the osseous structures. DIVISION OF RADIOLOGY Provider, [facility] - 04/23/2024 * * *Final Report* * * DATE OF EXAM: Apr 23 2024 11:09AM [facility] 7545 - CT ABD/PEL W IVCON / PROCEDURE [...] nephrolithiasis. 7. 4.1 cm left adnexal cyst. Automobile Engine Assembler: BERNADINE Transcribe Date/Time: Apr 23 2024 1:04P Dictated by : AROLDO SHIRLEY MD This examination was interpreted and the report reviewed an (more content not included)... [facility] Radiology Study observation (narrative) [facility] CT CHEST W IVCONon 5 CT CHEST W IVCON * * *Final Report* * * DATE OF EXAM: Apr 23 2024 11:09AM [facility] 0539 - CT CHEST W IVCON [...] nephrolithiasis. 7. 4.1 cm left adnexal cyst. Automobile Engine Assembler: BERNADINE Transcribe Date/Time: Apr 23 2024 1:04P Dictated by : AROLDO SHIRLEY MD This examination was interpreted and the report reviewed and electronically signed by: AROLDO SHIRLEY MD on Apr 23 2024 1:20PM EST [id number] Normal [facility] CT Chest W contrast Solange * * *Final Report* * * DATE OF EXAM: Apr 23 2024 11:09AM [facility] 0539 - CT CHEST W IVCON [...] the osseous structures. DIVISION OF RADIOLOGY Provider, [facility] - 04/23/2024 * * *Final Report* * * DATE OF EXAM: Apr 23 2024 11:09AM [facility] 0539 - CT CHEST W IVCON [...] nephrolithiasis. 7. 4.1 cm left adnexal cyst. Automobile Engine Assembler: BERNADINE Transcribe Date/Time: Apr 23 2024 1:04P Dictated by : AROLDO SHIRLEY MD This examination was interpreted and the report reviewed and (more content not included)... [facility] MR Brain WO and W contrast I VOrdered By: Ccf Provider on 04-23-2024 Interpretation and review of laboratory results Abnormal [facility] Radiology Result ACTIONABLE Abnormal [facility] Comment on above: This report contains [...] contact your provider for the next steps. [facility] MR Brain WO and W contrast I [...] be communicated with the ordering provider via [employer] staff message or phone message by Imaging Support Services within 2 business days of report finalization. --END OF FINDING-- Automobile Engine Assembler: PSCMicah Transcribe Date/Time: Apr 23 2024 11:38A Dictated by : MELINA DONAHUE MD This examination was interpreted and the report reviewed and electronically signed by: MELINA DONAHUE MD on Apr 23 2024 11:41AM [facility] DIVISION OF RADIOLOGY * * *Final Report* * * DATE OF EXAM: Apr 23 2024 11:33AM [facility] 0295 - MRI BRAIN WO/W IVCON / [...] the current MRI. DIVISION OF RADIOLOGY Provider, [facility] - 04/23/2024 * * *Final Report* * * DATE OF EXAM: Apr 23 2024 11:33AM [facility] 0295 - MRI BRAIN WO/W IVCON / [...] be communicated with the ordering provider via [employer] staff message or phone message by Imaging Support Services within 2 business days of report finalization. --END OF FINDING-- Automobile Engine Assembler: BERNADINE Transcribe Date/Time: Apr 23 2024 11:38A Dictated by : MELINA DONAHUE MD This examination was interpreted and the report reviewed and electronically signed by: MELINA DONAHUE MD on Apr 23 2024 11:41AM [facility] MRI BRAIN WO/W IVCONon 04-23 MRI BRAIN WO/W IVCON * * *Final Report* * * DATE OF EXAM: Apr 23 2024 11:33AM [facility] 0295 - MRI BRAIN WO/W IVCON / [...] be communicated with the ordering provider via [employer] staff message or phone message by Imaging Support Services within 2 business days of report finalization. --END OF FINDING-- Automobile Engine Assembler: BERNADINE Transcribe Date/Time: Apr 23 2024 11:38A Dictated by : MELINA DONAHUE MD This examination was interpreted and the report reviewed and electronically signed by: MELINA DONAHUE MD on Apr 23 2024 11:41AM EST [id number] ACTIONABLE Invalid Interpretation Code [facility] No Panel Informationon 04-23 IMPRESSION: 1. [...] nephrolithiasis. 7. 4.1 cm left adnexal cyst. Automobile Engine Assembler: BERNADINE Transcribe Date/Time: Apr 23 2024 1:04P Dictated by : AROLDO SHIRLEY MD This examination was interpreted and the report reviewed and electronically signed by: AROLDO SHIRLEY MD on Apr 23 2024 1:20PM [facility] DIVISION OF RADIOLOGY Radiology Study observation (narrative) [facility] No Panel InformationOrdered By: Ccf Provider on 04-23-2024 [facility] TRICHOMONAS VAGINALIS NAATon 04-23-2024 T. vaginalis DNA YAS+probe Ql (Unsp spec) Not detected Normal Not detected [facility] Comment on above: Order Comment: Speci men Type: BLOOD SPECIMEN Ordering Facility: [facility] Address: [address] [place] [address] Performed By: #### 2 4325-3, 07071-3 #### [facility] CLIA [id number] [address] [place] [address] CNOVon 04-14-2024 CNOV Office Visit (AGGENS3) BAILEYADRIANE ABDI ([id number]) 1985 F Date Time Provider Department 04/14/24 3:15 PM SANJUANITA RODARTE AGGENS3 During your visit today, we recorded the following information about you: Pulse Respiration Blood pressure Weight 68/minute 18/minute 116/72 68 kg Height 1.676 m Sanjuanita Rodarte MD 04/14/2024 4:23 PM Signed Sanjuanita Rodarte MD Surgical Oncology [address] [place] [address], [address] [place], [place] [id number] Name: Adriane Avalos Age: [age] year old Sex: Adriane Avalos : 1985 Referring Provider: No ref. provider found Subjective CHIEF COMPLAINT: Postop Melanoma ONCOLOGIC HISTORY: 03/03/24: Melanoma of upper back 04/03/24: WLE + SLNB, path: [id number] HISTORY OF PRESENT ILLNESS: Ms. Avalos is a 39 year old female who presents for postop follow up for history of melanoma. Date of Surgery:04/03/2024 Anatomic Location: Upper back Breslow Depth: 1.5mm Ulceration: No Mitosis: 1/mm2 Bolivar Lymph Node Biopsy: Yes Number of positive [...] normal. DATA: Pathology Report: FINAL DIAGNOSIS A. Bolivar lymph node, right axillary, excision: - Metastatic melanoma in one (1) lymph node (1), (see comment). - The metastatic deposit is 0.1 mm. - No extranodal extension is present. B. Bolivar lymph node, left axillary, excision: - One [...] months with US of axilla. -Follow up [id number] with Dermatology -Sun protection recommendations discussed. Cancer [...] breast (HCC) [C43.59] Order(s):US AXILLA ONLY LEFT [[id number]] Order #: [id number] FUTURE US AXILLA ONLY RIGHT [[id number]] Order #: [id number] FUTURE Prescriptions as of 04/14/2024 - iv [...] as inst (more content not included)... Normal [facility] ANES POSTPROC EVALon 025 ANES POSTPROC EVAL HNO ID: [id number] Author: MANJIT PUCKETT MD Service: Anesthesiology Author Type: Anesthesiologist Type: Anesthesia Postprocedure Evaluation Filed: 04/03/2024 19:20 Note Text: POST ANESTHESIA EVALUATION NOTE : 1985 Procedure Summary Date: 04/03/24 Room / Location: [place] [address] [place] [address] OR Anesthesia Start: 1346 Anesthesia Stop: 1647 [...] April 03, 2024 TIME: 7:19 PM CSN: [id number] [facility] ANES PRE-OPon 04-03-2024 ANES PRE-OP HNO ID: [id number] Author: JULIO DEMARCO MD Service: Anesthesiology Author [...] April 03, 2024 TIME: 12:28 PM CSN: [id number] Normal [facility] NM LYMPH NODE IMAGINGon NM LYMPH NODE IMAGING * * *Final Report* * * DATE OF EXAM: Apr 03 2024 8:15AM [facility] 0033 - NM LYMPH NODE IMAGING / [...] with the electronic medical 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 Safety time out [...] possible lymph node in the left axilla. 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 Author Type: Registered Nurse Type: Nursing Progress Note Filed: 04/03/2024 07:27 Note Text: Pt had a positive test today, pt states she had a medication induced 03/26/24. Dr Demarco, Dr Rodarte and Nuclear Imaging notified, ok to proceed from Dr Rodarte and Dr Demarco [facility] OPERATIVE NOon 04-03-2024 OPERATIVE NO HNO ID: [id number] Author: SANJUANITA RODARTE MD Service: General Surgery Author Type: Physician Type: Operative Report Filed: 04/03/2024 16:27 Note Text: OPERATIVE/PROCEDURE REPORT LOG ID: [id number] Surgery/Procedure Date: 04/03/2024 Incision/Procedure Start Time: 2:25 PM Incision Close/Procedure End Time: Surgeon(s)/Procedural ist(s) and Manager Cosmetic(s): Surgeons and Role: * Sanjuanita Rodarte MD [...] a millimeter) (more content not included)... Normal [facility] Pathology biopsy report Jamarcus (Tiss)on 04-03-2024 CASE REPORT Normal [facility] Comment on above: Order Comment: Speci men Type: TISSUE SPECIMEN Ordering Facility: [facility] Address: [address] [place] [address] Result Comment: Surg ica Pathology Report Case: [id number] Authorizing Provider: Sanjuanita Rodarte MD Collected: 04/03/2024 02:47 PM Ordering Location: [facility] Received: 04/06/2024 07:57 AM Pathologist: Maycol Olivares MD Specimens: A) - Lymph Node, Right, Bolivar, right axillary sentinal lymph node #1, hot and blue OOB 1444 B) - Lymph Node, Left, Bolivar, left axillary sentinal lymph node #1, Hot and blue, OOB 1513 C) - Skin, Wide Excision, wide local excision, single staple marking superior, double staple marking right lateral Performed By: #### 6 6121-5 #### [facility] CLIA [id number] [address] [place] [address] [place] CLINICAL HISTORY Normal [facility] Comment on above: Order Comment: Speci men Type: TISSUE SPECIMEN Ordering Facility: [facility] Address: [address] [place] [address] Result Comment: Pre- op diagnosis: 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 Selected slides were reviewed by Dr. Rah Cottrell, who agrees with this assessment. Laboratory Developed Test (LDT) Disclaimer: Performance characteristics of immunohistochemical, immunofluorescent and chromogenic in-situ hybridization tests have been determined by the performing laboratory within [facility]???s Nick Christopher Pathology and Laboratory Medicine Department ([facility], [facility], [facility], [facility], [facility], [facility], or [facility]) in a manner consistent with CLIA requirements. One or more of these tests have not been cleared or approved by the FDA. [facility] is regulated under CLIA as qualified to perform high-complexity testing. These tests are used for clinical purposes. They should not be regarded as investigational or for research. Positive and negative controls stain appropriately. Performed By: #### 6 6121-5 #### [facility] CLIA [id number] [address] FINAL DIAGNOSIS Normal [facility] Comment on above: Order Comment: Speci men Type: TISSUE SPECIMEN Ordering Facility: [facility] Address: [address] [place] [address] Result Comment: A. S entinel lymph node, right axillary, excision: - Metastatic melanoma in one (1) lymph node (1/), (see comment). - The metastatic deposit is 0.1 mm. - No extranodal extension is present. B. Bolivar lymph node, left axillary, excision: - One (1) benign lymph node (0/1), (see comment). C. Skin, back, wide local excision: - Skin with scar formation, consistent with prior surgical procedure. - There is a small junctional nevus near to scar, completely excised. - No evidence of residual melanoma. at 1508 EST Performed By: #### 6 6121-5 #### [facility] CLIA [id number] [address] FINAL PERFORMING LAB Normal [facility] Comment on above: Order Comment: Good cheema Type: TISSUE SPECIMEN Ordering Facility: [facility] Address: [address] [place] [address] Result Comment: Diag nostic interpretation performed at: [facility], [address] [place] [address] CLIA# [id number] Indigo Vat Tender Cloth: Rah Cottrell MD Performed By: #### 6 6121-5 #### [facility] CLIA [id number] [address] GROSS DESCRIPTION Normal [facility] Comment on above: Order Comment: Good cheema Type: TISSUE SPECIMEN Ordering Facility: [facility] Address: [address] [place] [address] Result Comment: A. L ymph Node, Right, Bolivar Received in formalin labeled right axillary sentinel lymph node 1 is a yellow to pink-carlton nodule resembling a possible lymph node measuring 3.1 x 2.3 x 1.7 cm. The specimen is serially sectioned and totally submitted in formalin in 5 cassettes. B. Lymph Node, Left, Bolivar Received in formalin labeled left axillary sentinel [...] submitted as follows: C1 perpendicular superior tip appliance service representative section C2 perpendicular inferior tip appliance service representative section C3-C14 scarlike area totally submitted in block from superior to inferior aspect (C3-C8 with lateral margin, C9-C14 with medial margin) Gross examination performed at [facility], [address] [place] [address] KVB April 06, 2024 12:07 PM Performed By: #### 6 6121-5 #### [facility] CLIA [id number] [address] [place] [address] CNOVon 03-26-2024 CNOV Office Visit (AGGENS3) BAILEYADRIANE ([id number]) 1985 F Date Time Provider Department 03/26/24 11:30 AM SANJUANITA RODARTE AGGENS3 During your visit today, we recorded the following information about you: Weight Height 68 kg 1.676 m Sanjuanita Rodarte MD 03/26/2024 11:59 AM Signed Sanjuanita Rodarte MD Surgical Oncology [address] [place] [address], [address] [place] [address] Name: Adriane Avalos Age: [age] year old [...] SURGICAL HISTORY Procedure Laterality Date IUD INSERTION (GROCERY CLERK CHECKING DEPT)_*FL 01/29/2008 Mirena IUD REMOVAL (GROCERY CLERK CHECKING DEPT)_*FL 06/28/2008 Mirena KIDNEY STONE SURGERY HX [...] Grandmother Diabetes Maternal Grandfather Heart Maternal Grandfather [place]- Social History Tobacco Use Smoking status: Every [...] Planning: WLE: Yes SLNB: Yes - Melanoma [place] risk calculator: 19% Adjacent tissue rearrangement, possible skin graft: No (more content not included)... Normal [facility] HISTORY PHYSICALon HISTORY PHYSICAL HNO ID: [id number] Author: SANJUANITA RODARTE MD Service: ? Author Type: Physician Type: H&P Filed: 03/26/2024 11:59 Note Text: Sanjuanita Rodarte MD Surgical Oncology [address] [place] [address] [address] [place] [address] Name: Adriane Avalos Age: [age] year old [...] SURGICAL HISTORY Procedure Laterality Date IUD INSERTION (GROCERY CLERK CHECKING DEPT)_*FL 01/29/2008 Mirena IUD REMOVAL (GROCERY CLERK CHECKING DEPT)_*FL 06/28/2008 Mirena KIDNEY STONE SURGERY HX [...] Grandmother Diabetes Maternal Grandfather Heart Maternal Grandfather [place]- Social History Tobacco Use Smoking status: Every [...] Planning: WLE: Yes SLNB: Yes - Melanoma [place] risk calculator: 19% Adjacent tissue rearrangement, possible skin graft: No Plastics to close: No Cardiac History: no On ASA or Anticoagulants: no Pacemaker/defibrillat or/implanted device: no Cancer Staging 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) Staging form: Melanoma of the Skin, AJCC 8th Editi (more content not included)... Normal [facility] CBC W Auto Differential pane l (Bld)on 09-09-2023 Basophils (Bld) [#/Vol] 0.05 10*3/uL [facility] Basophils/100 WBC (Bld) 0.5 % 0.0 - 2.0 % [facility] Eosinophils (Bld) [#/Vol] 0.53 10*3/uL [facility] Eosinophils/100 WBC (Bld) 5.1 % 0.0 - 6.0 % [facility] Erythrocyte distribution width (RBC) [Ratio] 13.6 % 11.5 - 14.5 % [facility] Hematocrit (Bld) [Volume fraction] 42.0 % 36.0 - 46.0 % [facility] Hemoglobin (Bld) [Mass/Vol] 13.8 g/dL 12.0 - 16.0 g/dL [facility] Immature granulocytes (Bld) [#/Vol] 0.03 10*3/uL [facility] Immature granulocytes/100 WBC (Bld) 0.3 % 0.0 - 0.9 % [facility] Comment on above: Immature Granulocyte Count (IG) includes promyelocytes, myelocytes and metamyelocytes but does not include bands. Percent differential counts (%) should be interpreted in the context of the absolute cell counts (cells/UL). Lymphocytes (Bld) [#/Vol] 3.86 10*3/uL [facility] Lymphocytes/100 WBC (Bld) 37.2 % 13.0 - 44.0 % [facility] MCH (RBC) [Entitic mass] 29.9 pg 26.0 - 34.0 pg [facility] MCHC (RBC) [Mass/Vol] 32.9 g/dL 32.0 - 36.0 g/dL [facility] MCV (RBC) [Entitic vol] 91 fL 80 - 100 fL [facility] Monocytes (Bld) [#/Vol] 0.79 10*3/uL [facility] Monocytes/100 WBC (Bld) 7.6 % 2.0 - 10.0 % [facility] Neutrophils (Bld) [#/Vol] 5.11 10*3/uL [facility] Comment on above: Percent differential counts (%) should be interpreted in the context of the absolute cell counts (cells/uL). Neutrophils/100 WBC (Bld) 49.3 % 40.0 - 80.0 % [facility] Nucleated RBC/100 WBC (Bld) [Ratio] 0.0 % [facility] Platelets (Bld) [#/Vol] 348 10*3/uL [facility] RBC (Bld) [#/Vol] 4.61 10*6/uL [facility] WBC (Bld) [#/Vol] 10.4 10*3/uL [facility] Basophils (Bld) [#/Vol] 0.05 x10*3/uL Normal 0.00-0.10 [facility] Comment on above: Performed By: #### 5 7021-8 #### MARLEE FREEMAN ([id number]) [facility] ([facility]) [address] [place] [address] Basophils/100 WBC (Bld) 0.5 % Normal 0.0-2.0 [facility] Comment on above: Performed By: #### 5 7021-8 #### MARLEE FREEMAN ([id number]) [facility] ([facility]) [address] [place] [address] Eosinophils (Bld) [#/Vol] 0.53 x10*3/uL Normal 0.00-0.70 [facility] Comment on above: Performed By: #### 5 7021-8 #### MARLEE FREEMAN ([id number]) [facility] ([facility]) [facility] [place] [address] Eosinophils/100 WBC (Bld) 5.1 % Normal 0.0-6.0 [facility] Comment on above: Performed By: #### 5 7021-8 #### MARLEE FREEMAN ([id number]) [facility] ([facility]) [address] [place] [address] Erythrocyte distribution width (RBC) [Ratio] 13.6 % Normal 11.5-14.5 [facility] Comment on above: Performed By: #### 5 7021-8 #### MARLEE FREEMAN ([id number]) [facility] ([facility]) [address] [place] [address] Hematocrit (Bld) [Volume fraction] 42.0 % Normal 36.0-46.0 [facility] Comment on above: Performed By: #### 5 7021-8 #### MARLEE FREEMAN ([id number]) [facility] ([facility]) [address] [place], [place] [id number] Hemoglobin (Bld) [Mass/Vol] 13.8 g/dL Normal 12.0-16.0 [facility] Comment on above: Performed By: #### 5 7021-8 #### MARLEE FREEMAN ([id number]) [facility] ([facility]) [address] [place] [address] Immature granulocytes (Bld) [#/Vol] 0.03 x10*3/uL Normal 0.00-0.70 [facility] Comment on above: Performed By: #### 5 7021-8 #### MARLEE FREEMAN ([id number]) [facility] ([facility]) [address] [place], [place] [id number] Immature granulocytes/100 WBC (Bld) 0.3 % Normal 0.0-0.9 [facility] Comment on above: Result Comment: Suzan ture Granulocyte Count (IG) includes promyelocytes, myelocytes and metamyelocytes but does not include bands. Percent differential counts (%) should be interpreted in the context of the absolute cell counts (cells/UL). Performed By: #### 5 7021-8 #### MARLEE FREEMAN ([id number]) [facility] ([facility]) [address] [place] [address] 62380 Lymphocytes (Bld) [#/Vol] 3.86 x10*3/uL Normal 1.20-4.80 [facility] Comment on above: Performed By: #### 5 7021-8 #### MARLEE FREEMAN ([id number]) [facility] ([facility]) [address] [place] [address] 91222 Lymphocytes/100 WBC (Bld) 37.2 % Normal 13.0-44.0 [facility] Comment on above: Performed By: #### 5 7021-8 #### MARLEE FREEMAN ([id number]) [facility] ([facility]) [address] [place] [address] 64898 MCH (RBC) [Entitic mass] 29.9 pg Normal 26.0-34.0 [facility] Comment on above: Performed By: #### 5 7021-8 #### MARLEE FREEMAN ([id number]) [facility] ([facility]) [address] [place] [address] 64946 MCHC (RBC) [Mass/Vol] 32.9 g/dL Normal 32.0-36.0 [facility] Comment on above: Performed By: #### 5 7021-8 #### MARLEE FREEMAN ([id number]) [facility] ([facility]) [address] [place] [address] 43190 MCV (RBC) [Entitic vol] 91 fL Normal 80-100 [facility] Comment on above: Performed By: #### 5 7021-8 #### MARLEE FREEMAN ([id number]) [facility] ([facility]) [address] [place] [address] 33071 Monocytes (Bld) [#/Vol] 0.79 x10*3/uL Normal 0.10-1.00 [facility] Comment on above: Performed By: #### 5 7021-8 #### MARLEE FREEMAN ([id number]) [facility] ([facility]) [address] [place] [address] 47948 Monocytes/100 WBC (Bld) 7.6 % Normal 2.0-10.0 [facility] Comment on above: Performed By: #### 5 7021-8 #### MARLEE FREEMAN ([id number]) [facility] ([facility]) [address] [place] [address] 34837 Neutrophils (Bld) [#/Vol] 5.11 x10*3/uL Normal 1.20-7.70 [facility] Comment on above: Result Comment: Perc ent differential counts (%) should be interpreted in the context of the absolute cell counts (cells/uL). Performed By: #### 5 7021-8 #### MARLEE FREEMAN ([id number]) [facility] ([facility]) [address] [place] [address] 98925 Neutrophils/100 WBC (Bld) 49.3 % Normal 40.0-80.0 [facility] Comment on above: Performed By: #### 5 7021-8 #### MARLEE FREEMAN ([id number]) [facility] ([facility]) [address] [place] [address] 78855 Nucleated RBC/100 WBC (Bld) [Ratio] 0.0 /100 WBCs Normal 0.0-0.0 [facility] Comment on above: Performed By: #### 5 7021-8 #### MARLEE FREEMAN ([id number]) [facility] ([facility]) [address] [place] [address] 71035 Platelets (Bld) [#/Vol] 348 x10*3/uL Normal 150-450 [facility] Comment on above: Performed By: #### 5 7021-8 #### MARLEE FREEMAN ([id number]) [facility] ([facility]) [address] [place] [address] 16460 RBC (Bld) [#/Vol] 4.61 x10*6/uL Normal 4.00-5.20 [facility] Comment on above: Performed By: #### 5 7021-8 #### MARLEE FREEMAN ([id number]) [facility] ([facility]) [address] [place] [address] 53112 WBC (Bld) [#/Vol] 10.4 x10*3/uL Normal 4.4-11.3 [facility] Comment on above: Performed By: #### 5 7021-8 #### MARLEE FREEMAN ([id number]) [facility] ([facility]) [address] [place] [address] ABDOMEN PELVIS W IV CONTR Rod 09-09-2023 CT ABDOMEN PELVIS W IV CONTRAST STUDY: CT Abdomen and Pelvis with IV Contrast; 09/09/2023 6:10 PM INDICATION: Right lower quadrant pain. COMPARISON: XR abdomen 09/18/2021. CT abdomen/pelvis 09/14/2021. ACCESSION NUMBER(S): [id number] ORDERING CLINICIAN: SELAM MARCELO TECHNIQUE: CT of [...] already evaluated.. Signed by Nick Luz MD [facility] CT Abdomen and Pelvis W cont rast [...] abdomen 09/18/2021. CT abdomen/pelvis 09/14/2021. ACCESSION NUMBER(S): [id number] ORDERING CLINICIAN: SELAM MARCELO TECHNIQUE: CT of [...] abdomen 09/18/2021. CT abdomen/pelvis 09/14/2021. ACCESSION NUMBER(S): [id number] ORDERING CLINICIAN: SELAM Bella BILDERQUIRINO TECHNIQUE: CT [...] already evaluated.. Signed by Nick Luz MD [facility] Work Phone: Radiology Study observation (narrative) [facility] Work Phone: CT Abdomen and Pelvis W cont rast IVOrdered By: Nick Luz on 09-09-2023 [facility] Work Phone: Comprehensive metabolic 2000 panelon 09-09-2023 Albumin BCP dye [Mass/Vol] 4.3 g/dL 3.4 - 5.0 g/dL [facility] ALP [Catalytic activity/Vol] 52 U/L 33 - 110 U/L [facility] ALT With P-5'-P [Catalytic activity/Vol] 10 U/L 7 - 45 U/L [facility] Comment on above: Patients treated wit h Sulfasalazine may generate falsely decreased results for ALT. Anion gap [Moles/Vol] 12 mmol/L 10 - 20 mmol/L [facility] AST With P-5'-P [Catalytic activity/Vol] 10 U/L 9 - 39 U/L [facility] Bilirubin [Mass/Vol] 0.5 mg/dL 0.0 - 1 .2 mg/dL [facility] Calcium [Mass/Vol] 8.9 mg/dL 8.6 - 10. 3 mg/dL [facility] Chloride [Moles/Vol] 107 mmol/L 98 - 10 7 mmol/L [facility] CO2 [Moles/Vol] 23 mmol/L 21 - 32 mmol/L [facility] Creatinine [Mass/Vol] 0.76 mg/dL 0.50 - 1.05 mg/dL [facility] eGFR - PINF [facility] Comment on above: Calculations of thee mated GFR are performed using the 2020 CKD-EPI Study Refit equation without the race variable for the IDMS-Traceable creatinine methods. https://jasn.asnjournals.org/content//ASN.532624 2202 Glucose [Mass/Vol] 96 mg/dL 74 - 99 mg/dL [facility] Potassium [Moles/Vol] 3.7 mmol/L 3.5 - 5.3 mmol/L [facility] Protein [Mass/Vol] 6.8 g/dL 6.4 - 8.2 g/dL [facility] Sodium [Moles/Vol] 138 mmol/L 136 - 145 mmol/L [facility] Urea nitrogen [Mass/Vol] 13 mg/dL 6 - 23 mg/dL [facility] Albumin BCP dye [Mass/Vol] 4.3 g/dL Normal 3.4-5.0 [facility] Comment on above: Performed By: #### 2 4323-8 #### WHALEN LYDIA ([id number]) [facility] ([facility]) [address] [place] [address] 77215 ALP [Catalytic activity/Vol] 52 U/L Normal 33-110 [facility] Comment on above: Performed By: #### 2 4323-8 #### MARLEE FREEMAN ([id number]) [facility] ([facility]) [address] [place] [address] ALT With P-5'-P [Catalytic activity/Vol] 10 U/L Normal 7-45 [facility] Comment on above: Result Comment: Ingrid ents treated with Sulfasalazine may generate falsely decreased results for ALT. Performed By: #### 2 432-8 #### MARLEE FREEMAN ([id number]) [facility] ([facility]) [address] [place] [address] 66313 Anion gap [Moles/Vol] 12 mmol/L Normal 10-20 [facility] Comment on above: Performed By: #### 2 432-8 #### MARLEE FREEMAN ([id number]) [facility] ([facility]) [address] [place] [address] 97250 AST With P-5'-P [Catalytic activity/Vol] 10 U/L Normal 9-39 [facility] Comment on above: Performed By: #### 2 432-8 #### MARLEE FREEMAN ([id number]) [facility] ([facility]) [address] [place] [address] Bilirubin [Mass/Vol] 0.5 mg/dL Normal 0.0-1.2 [facility] Comment on above: Performed By: #### 2 432-8 #### MARLEE FREEMAN ([id number]) [facility] ([facility]) [address] [place] [address] Calcium [Mass/Vol] 8.9 mg/dL Normal 8.6-10.3 [facility] Comment on above: Performed By: #### 2 4323-8 #### MARLEE FREEMAN ([id number]) [facility] ([facility]) [address] [place] [address] Chloride [Moles/Vol] 107 mmol/L Normal 98-107 [facility] Comment on above: Performed By: #### 2 4323-8 #### MARLEE FREEMAN ([id number]) [facility] ([facility]) [address] [place] [address] 88604 CO2 [Moles/Vol] 23 mmol/L Normal 21-32 [facility] Comment on above: Performed By: #### 2 4323-8 #### MARLEE FREEMAN ([id number]) [facility] ([facility]) [address] [place] [address] 84028 Creatinine [Mass/Vol] 0.76 mg/dL Normal 0.50-1.05 [facility] Comment on above: Performed By: #### 2 4323-8 #### MARLEE FREEMAN ([id number]) [facility] ([facility]) [address] [place] [address] 23223 GFR/1.73 sq M.predicted MDRD (S/P/Bld) [Vol rate/Area] mL/min/{1.73_m2} Normal >60 [facility] Comment on above: Result Comment: Calc ulations of estimated GFR are performed using the 2020 CKD-EPI Study Refit equation without the race variable for the IDMS-Traceable creatinine methods. https://jasn.asnjournals.org/content/early//ASN.071668 8622 Performed By: #### 2 4323-8 #### MARLEE FREEMAN ([id number]) [facility] ([facility]) [address] [place] [address] 04231 Glucose [Mass/Vol] 96 mg/dL Normal 74-99 [facility] Comment on above: Performed By: #### 2 4323-8 #### MARLEE FREEMAN ([id number]) [facility] ([facility]) [address] [place] [address] 20786 Potassium [Moles/Vol] 3.7 mmol/L Normal 3.5-5.3 [facility] Comment on above: Performed By: #### 2 4323-8 #### MARLEE FREEMAN ([id number]) [facility] ([facility]) [address] [place] [address] 03504 Protein [Mass/Vol] 6.8 g/dL Normal 6.4-8.2 [facility] Comment on above: Performed By: #### 2 4323-8 #### MARLEE FREEMAN ([id number]) [facility] ([facility]) [address] [place] [address] 48693 Sodium [Moles/Vol] 138 mmol/L Normal 136-145 [facility] Comment on above: Performed By: #### 2 4323-8 #### MARLEE FREEMAN ([id number]) [facility] ([facility]) [address] [place] [address] 88736 Urea nitrogen [Mass/Vol] 13 mg/dL Normal 6-23 [facility] Comment on above: Performed By: #### 2 4323-8 #### MARLEE FREEMAN ([id number]) [facility] ([facility]) [address] [place], [place] [address] HCG ( test) IA.rapi d Ql (U)Ordered By: Joni Soriano on 09-09-2023 HCG ( test) Ql (U) Negative NEGATIVE [facility] Interpretation and review of laboratory results Normal [facility] HCG ( test) IA.rapi d Ql (U)on 09-09-2023 HCG ( test) Ql (U) Negative Normal NEGATIVE [facility] Comment on above: Performed By: #### 8 0384-1 #### MARLEE FREEMAN ([id number]) [facility] ([facility]) [address] [place] [address] 32970 Lactateon 09-09-2023 Lactate [Moles/Vol] 1.1 mmol/L 0.4 - 2. 0 mmol/L [facility] Lactate [Moles/Vol] 1.1 mmol/L Normal 0.4-2.0 [facility] Comment on above: Order Comment: Venip uncture immediately after or during the administration of Metamizole may lead to falsely low results. Testing should be performed immediately prior to Metamizole dosing. Performed By: #### 2 524-7 #### MARLEE FREEMAN ([id number]) [facility] ([facility]) [address] [place] [address] Lactate [Moles/Vol]on 2023 Interpretation and review of laboratory results Normal [facility] Venipuncture immediately after or during the administration of Metamizole may lead to falsely low results. Testing should be performed immediately prior to Metamizole dosing. [facility] Lipaseon 09-09-2023 Lipase [Catalytic activity/Vol] 20 U/L U/L [facility] Lipase [Catalytic activity/V ol]on 09-09-2023 Venipuncture immediately after or during the administration of Metamizole may lead to falsely low results. Testing should be performed immediately prior to Metamizole dosing. [facility] No Panel Informationon 09-08 Interpretation and review of laboratory results Normal [facility] Triacylglycerol lipaseon Lipase [Catalytic activity/Vol] 20 U/L Normal [facility] Comment on above: Order Comment: Venip uncture immediately after or during the administration of Metamizole may lead to falsely low results. Testing should be performed immediately prior to Metamizole dosing. Performed By: #### 3 040-3 #### MARLEE FREEMAN ([id number]) [facility] ([facility]) [address] [id number] Urinalysis complete W Reflex Culture panel (U)on 09-09-2023 Appearance (U) Clear Clear [facility] Bacteria Auto (Urine sed) [#/Area] 1+ Abnormal NONE SEEN /HPF [facility] Bilirubin (U) [Mass/Vol] Negative NEGATIVE [facility] Color (U) Light-Yellow Light-Yellow, Yellow, Dark-Yellow [facility] Epithelial cells.squamous Auto (Urine sed) [#/Area] 1-9 (SPARSE) Reference range not established. /HPF [facility] Glucose Auto test strip (U) [Mass/Vol] Normal Normal mg/dL [facility] Interpretation and review of laboratory results Abnormal [facility] Ketones (U) [Mass/Vol] Negative NEGATIVE mg/dL [facility] Leukocyte esterase Auto test strip Ql (U) Negative NEGATIVE [facility] Mucus Auto (Urine sed) [#/Area] 2+ Reference range not established. /LPF [facility] Nitrite Auto test strip Ql (U) Negative NEGATIVE [facility] pH (U) 5.5 [pH] 5.0, 5.5, 6.0, 6.5, 7.0, 7.5, 8.0 [facility] Protein (U) [Mass/Vol] Negative NEGATIVE, 10 (TRACE), 20 (TRACE) mg/dL [facility] RBC (U) [#/Vol] 0.1 (1+) Abnormal NEGATIVE [facility] RBC Auto (Urine sed) [#/Area] 6-10 Abnormal NONE, 1-2, 3-5 /HPF [facility] Specific gravity (U) [Rel density] 1.012 1.005 - 1.035 [facility] Urobilinogen (U) [Mass/Vol] Normal Normal mg/dL [facility] WBC Auto (Urine sed) [#/Area] 1-5 1-5, NONE /HPF [facility] Appearance (U) Clear Normal Clear [facility] Comment on above: Performed By: #### 5 8077-9 #### MARLEE FREEMAN ([id number]) [facility] ([facility]) [address] [place] [address] Bacteria Auto (Urine sed) [#/Area] 1+ /HPF Abnormal NONE SEEN [facility] Comment on above: Performed By: #### 5 8077-9 #### MARLEE FREEMAN ([id number]) [facility] ([facility]) [address] [place] [address] 01205 Bilirubin (U) [Mass/Vol] Negative Normal NEGATIVE [facility] Comment on above: Performed By: #### 5 8077-9 #### MARLEE FREEMAN ([id number]) [facility] ([facility]) [address] [place], [place] [phone] Color (U) Light-Yellow Normal Light-Yellow, Yellow, Dark-Yellow [facility] Comment on above: Performed By: #### 5 8077-9 #### MARLEE FREEMAN ([id number]) [facility] ([facility]) [address] [place] [address] 00369 Epithelial cells.squamous Auto (Urine sed) [#/Area] 1-9 (SPARSE) Normal Reference range not established. [facility] Comment on above: Performed By: #### 5 8077-9 #### MARLEE FREEMAN ([id number]) [facility] ([facility]) [address] [place] [address] Glucose Auto test strip (U) [Mass/Vol] Normal Normal Normal [facility] Comment on above: Performed By: #### 5 8077-9 #### MARLEE FREEMAN ([id number]) [facility] ([facility]) [address] [place] [address] Ketones (U) [Mass/Vol] Negative Normal NEGATIVE [facility] Comment on above: Performed By: #### 5 8077-9 #### MARLEE FREEMAN ([id number]) [facility] ([facility]) [address] [place] [address] Leukocyte esterase Auto test strip Ql (U) Negative Normal NEGATIVE [facility] Comment on above: Performed By: #### 5 8077-9 #### MARLEE FREEMAN ([id number]) [facility] ([facility]) [address] [place] [address] Mucus Auto (Urine sed) [#/Area] 2+ /LPF Normal Reference range not established. [facility] Comment on above: Performed By: #### 5 8077-9 #### MARLEE FREEMAN ([id number]) [facility] ([facility]) [address] [place] [address] Nitrite Auto test strip Ql (U) Negative Normal NEGATIVE [facility] Comment on above: Performed By: #### 5 8077-9 #### MARLEE FREEMAN ([id number]) [facility] ([facility]) [address] [place] [address] pH (U) 5.5 [pH] Normal 5.0, 5.5, 6.0, 6.5, 7.0, 7.5, 8.0 [facility] Comment on above: Performed By: #### 5 8077-9 #### MARLEE FREEMAN ([id number]) [facility] ([facility]) [address] [place] [address] 77231 Protein (U) [Mass/Vol] Negative Normal NEGATIVE, 10 (TRACE), 20 (TRACE) [facility] Comment on above: Performed By: #### 5 8077-9 #### MARLEE FREEMAN ([id number]) [facility] ([facility]) [address] [place] [address] 43143 RBC (U) [#/Vol] 0.1 (1+) Abnormal NEGATIVE [facility] Comment on above: Performed By: #### 5 8077-9 #### MARLEE FREEMAN ([id number]) [facility] ([facility]) [address] [place] [address] 60878 RBC Auto (Urine sed) [#/Area] 6-10 Abnormal NONE, 1-2, 3-5 [facility] Comment on above: Performed By: #### 5 8077-9 #### MARLEE FREEMAN ([id number]) [facility] ([facility]) [address] [place] [address] Specific gravity (U) [Rel density] 1.012 Normal 1.005-1.035 [facility] Comment on above: Performed By: #### 5 8077-9 #### MARLEE FREEMAN ([id number]) [facility] ([facility]) [address] [place] [address] 04715 Urobilinogen (U) [Mass/Vol] Normal Normal Normal [facility] Comment on above: Performed By: #### 5 8077-9 #### MARLEE FREEMAN ([id number]) [facility] ([facility]) [address] [place] [address] 33241 WBC Auto (Urine sed) [#/Area] 1-5 Normal 1-5, NONE [facility] Comment on above: Performed By: #### 5 8077-9 #### MARLEE FREEMAN ([id number]) [facility] ([address] [place] [address] C. trachomatis+N. gonorrhoea e DNA YAS+probe Ql (Unsp spec)on 04-19-2023 C. trachomatis rRNA YAS+probe Ql (Unsp spec) Negative Negative for Chlamydia trachomatis by amplificaton [facility] N. gonorrhoeae rRNA YAS+probe Ql (Unsp spec) Negative Negative for Neisseria gonorrhoeae by amplification [facility] TRICHOMONAS VAGINALIS NAATon 04-19-2023 T. vaginalis DNA YAS+probe Ql (Unsp spec) Negative Negative for Trichomonas vaginalis by amplification [facility] HEP B SURF AG SCRNon 024 HBV surface Ag Ql (S) Negative Negative [facility] HIV 1+2 Ab IA Qlon 4 HIV 1 and 2 Ab IA.rapid Nom (S/P/Bld) [facility] HIV 1+2 Ab+HIV1 p24 Ag IA Ql Non-Reactive Nonreactive [facility] HIV immunoassay testing algorithm interpretation (S/P/Bld) [Interp] [facility] Reagin and Treponema pallidu m IgG and IgM [Interp]on 04-18-2023 T. pallidum IgG+IgM IA Ql (S) Non-Reactive Nonreactive [facility] SYPHILIS TOTAL W/REFLEXon Reagin and Treponema pallidum IgG and IgM [Interp] Cannot exclude recent Treponemal infection if specimen collected within 7-10 days after appearance of suspect lesions or 2-3 weeks after an exposure. Clinical correlation is required. [facility] CT ANGIOGRAM NECKon 03-17-19 CT ANGIOGRAM NECK [...] Mar 17, 2022 9:51:01 PM EST Normal [facility] Comment on above: Order Comment: Injur y/Trauma [...] Post-Discharge Culture Follow Up Team, please contact [phone]. . Pharm. JamesD. PGY-1 Neurology Teacher [facility] Electronic Signatures: Lexi Monsivais (PharmD) (Signed 01-Dec-2021 08:44) Co-Signer: Clinical Event Note Abiola Carlson ([facility]) (Signed 30-Nov-2021 09:47) Authored: Clinical Event Note Last Updated: 01-Dec-2021 08:44 by Lexi Monsivais (PharmD) Normal [facility] CORONAVIRUS 2019 BY PCRon SARS-CoV-2 (COVID-19) RNA YAS+probe Ql (Unsp spec) Detected Abnormal Not Detected [facility] Comment on above: Result Comment: . This test has received FDA Emergency Use Authorization (EUA) and has been verified by [facility]. This test is only authorized for the duration of time that circumstances exist to justify the authorization of the emergency use of in vitro diagnostic tests for the detection of SARS-CoV-2 virus and/or diagnosis of COVID-19 infection under section 564(b)(1) of the Act, 21 U.S.C. 360bbb-3(b)(1), unless the authorization is terminated or revoked sooner. [facility] is certified under CLIA-88 as qualified to perform high complexity testing. Testing is performed in the [facility] laboratory located at [address] [place] [address]. SARS-CoV-2/Flu/RSV Multiplex Test: Fact sheet for providers: https://www.fda.gov/media/602036/download Fact sheet for patients: https://www.fda.gov/media/711555/download Performed By: #### C OV19 #### [place] [address] Lab Specimen Source Nasal, Nasopharyngeal Normal [facility] Comment on above: Performed By: #### C OV19 #### [place] [address] Performed By: #### O VPG3 #### [address] [address] Covid 19 Resultson 2 SARS-CoV-2 (COVID-19) RNA [...] You may also be contacted by the [facility] to see if any of your [...] or Naproxen (Aleve) can also be used. Plkf-qlc-jocggmp cough and cold medicines can be used according to the instructions on the package. Some psse-nhp-btebfyp medicines also contain acetaminophen. Make sure you [...] water are not available, use alcohol-based hand curtain stitcher. Avoid touching your eyes, nose, and mouth [...] 24 nela (more content not included)... Normal [facility] INFLUENZA A + B PCRon 2021 INFLUENZA A, PCR Not detected Normal Not Detected [facility] Comment on above: Result Comment: Resp iratory virus testing is performed routinely by PCR for Influenza A/B and RSV. Not Detected results do not preclude Influenza A/B or RSV infections since the adequacy of sample collection or low viral burden may impact the clinical sensitivity of this test method. Performed By: #### O VPG3 #### [facility] [address] [facility] [place] [address] INFLUENZA B, PCR Not detected Normal Not Detected [facility] Comment on above: Result Comment: Resp iratory virus testing is performed routinely by PCR for Influenza A/B and RSV. Not Detected results do not preclude Influenza A/B or RSV infections since the adequacy of sample collection or low viral burden may impact the clinical sensitivity of this test method. Performed By: #### O VPG3 #### [facility] [address] [facility] [place] [address] Provider Note - ED v3on 100 Provider [...] chart was dictated with the use of Rocket[employer]La software within the framework of the current [...] Drug N (more content not included)... Normal [facility] Risk Screen - Adult Emergenc yon 11-29-2021 [...] instruction; written material Cultural Considerationsnone Developmental Considerationsnone Druze Considerationsnone Learning Assessment (Other Learner): Learning Assessment [...] an injured patient at a Trauma Center ([facility]/[place]/Sis [place]): no Electronic Signatures: Rita Stevenson (RN) (Signed 29-Nov-2021 08:25) Authored: Preferred Language, Patient Preferred Pharmacy, Advanced Directives, Family Violence Adult, Learning Assessment (Patient), Learning Assessment (Other Learner), Pressure Injury/TB/Substance, Pressure Injury, CAGE Last Updated: 29-Nov-2021 08:25 by Rita Stevenson (RN) [facility] Triage - EDon 11-29-2021 Triage - ED Quick Triage: Are You no Have You Given In The Last 6 Weeksno Are You Currently Breastfeedingno Chart Review: PRIMARY ASSESSMENT ABCD Normal Findings: airway open and patent, circulation normal and alert and oriented ARRIVAL INFORMATION Means of Arrival: Ambulatory Mode of Arrival: private vehicle Arrival From: home Accompanied By: spouse/significant other Language: Spoken Language Preferred: Ugandan Reading Language Preferred: Ugandan Present on Arrival: Device Present on Arrival [...] obeys commands Best Verbal Response: (V5) oriented [place] Score: 15 Allergies: no Last menstrual period: [...] 29-Nov-2021 08:23 by Rita Stevenson (MARYAN) Normal 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 STONE CALCULI: --GROSS DIAGNOSIS ONLY: CALCULUS MATERIAL, SENT FOR STONE ANALYSIS. [facility] CONVERTED FINAL REPORT PDF LINK TO COPY AND PASTE \\copathshare\copath\ PDF \[id number] .pdf [facility] CONVERTED GROSS DESCRIPTION Received fresh, labeled with the patient's name and hospital number and stone calculus, are two calculi aggregating to 0.4 x 0.3 x 0.2 cm. Tissue is not received with the specimen. A photograph has been taken. The stones are sent for stone analysis. The specimen is for gross examination only. [facility] Pathology Report Name ADRIANE AVALOS Pathologist: PETE JEFFERSON Date of Procedure: 09/14/2021 Date Received: 09/15/2021 Date Reported 09/25/2021 Submitting Physician: AZAEL HINDS II, MD Location: [facility] Other External # FINAL DIAGNOSIS A. STONE CALCULI: --GROSS DIAGNOSIS ONLY: CALCULUS MATERIAL, SENT FOR STONE ANALYSIS. Electronically Signed Out By PETE JEFFERSON/IDALMIS By the signature on this report, the individual or group listed as making the Final Interpretation/Diagno sis certifies that they have reviewed this case. Diagnostic interpretation performed at [facility] [address] [address] [facility] [address] Clinical History: Clinical Diagnosis History UETER CALCULI [...] is for gross examination only. [facility] rcc/09/16/2021 [facility] Department of Pathology [address] [place] [address] [facility] CALCULI [STONE] ANALYSISon 0 09-22-2021 CALCULI COMPOSITION See Note [facility] Comment on above: Result Comment: Calc malcolm [...] composition determined by FTIR analysis. Performed By: [facility] [address] [place] [address] [employer]: Austin Dolan MD, PhD Performed By: #### C ALCU #### [facility] [address] [place] [address] DESCRIPTION See Note [facility] Comment on above: Result Comment: Spec imen consists of two brown and carlton calculi fragments. The total weight is 6 mg. Performed By: #### C ALCU #### [facility] [address] [place] [address] WEIGHT 6 mg [facility] Comment on above: Performed By: #### C ALCU #### [facility] [address] [place] [address] ABDOMEN AP VIEWon 09-18-2021 ABDOMEN AP VIEW Patient Name: ADRIANE AVALOS STUDY: ABDOMEN AP VIEW; 09/18/2021 2:02 am INDICATION: Ureteral stent. COMPARISON: CT abdomen pelvis 09/14/2021 ACCESSION NUMBER(S): [id number] ORDERING CLINICIAN: JOSEPH GALLEGOS FINDINGS: A right-sided [...] Electronically signed by: JORGE BANKS MD Normal [facility] HCG,URINEon 09-18-2021 Beta HCG ( test) Ql (U) Negative Normal Negative [facility] Comment on above: Performed By: #### H U #### [place] [address] Office Visit (Urology)on Follow-up visit Diagnoses/Problems Assessed Right ureteral stone (592.1) (N20.1) Current some day smoker (305.1) (F17.200) social smoker on weekends Orders Right ureteral stone Follow-up visit in 2 weeks Outpatient Follow-up STONE ANALYSIS Status: Hold For - Scheduling Requested for: [id number] Ordered Stat;For: Right ureteral stone; Ordered By: Azael Hinds II Performed: Due: 17Dec2021 SocHx: Current some day smoker Tobacco Use Screening; Status:Complete; Done: [id number] Perform:Not Applicable;Ordered; For:SocHx: Current some day smoker; Ordered By:Henrietta Barrientos; Chief Complaint RIGHT URETERAL STONE Active Problems Problems Anxiety (300.00) (F41.9) Chest tightness (786.59) (R07.89) Chest wall pain (786.52) (R07.89) Chronic constipation (564.00) (K59.09) Cough (786.2) (R05.9) Diarrhea, unspecified type (787.91) (R19.7) Gastritis (535.50) (K29.70) Hookworm, 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 Zyrtec TABS Vitals Vital Signs Recorded: [id number] 11:43AM Heart Rate70 Tebhuyha713 Quvrbubhw34 Height5 ft 7 in Squhur680 lb 6 oz BMI Efdowevnhm23.67 kg/m2 BSA Calculated1.73 Tobacco Usea) Yes PHQ-2 [...] Sep 18 2021 12:50PM EST (Author) Normal [employer] Provider Note - ED v3on 07-2 Provider [...] Reference Range: STRAW,YELLOW Appearance, Urine HAZY Specific [place], Urine 1.019 pH, Urine 6.0 Protein, Urine [...] SIGNS: T PRBP SpO2O2(LPM) %FiO2 Method 18-Sep-2021 02:00:00-7260081/89 98 18-Sep-2021 01:30:00-1244614/77 97 17-Sep-2021 23:37:00-4276630/89 97 17-Sep-2021 22:28:[id number]/ 84 97 room air, no respiratory support MDM MDM/ED COURSE: This is a young female who was recently diagnosed with kidney stones. She had a ureteral stent put in the right side on September [address] Hinds (more content not included)... Normal [facility] Radiologyon 09-18-2021 XR Abdomen AP Normal [facility]-U[facility]- [employer] Phone: Risk Screen - Adult Emergenc yon [...] Learning Preferenceswritten material Cultural Considerationsnone Developmental Considerationsnone Druze Considerationsnone Other Learnersnone Learning Assessment (Other Learner): [...] an injured patient at a Trauma Center ([facility]/[place]/Sis [facility]/[place] no Electronic Signatures: Brittny Porter (SUPV) (Signed 17-Sep-2021 22:52) Authored: Preferred Language, Advanced Directives, Family Violence Adult, Learning Assessment (Patient), Learning Assessment (Other Learner), Pressure Injury/TB/Substance, Pressure Injury, CAGE Last Updated: 17-Sep-2021 22:52 by Brittny Porter (SUPV) [facility] Tobacco Screening.on 022 Fall risk assessment a) No falls within the last year QC-Astcvyu-Czl [facility] Work Phone: Tobacco use status CPHS a) Yes IE-Pwdwjoc-Yuw land Work Phone: Tobacco Screening. Yes MP-Uro logy[facility] Work Phone: Triage - EDon 09-18-2021 Triage [...] obeys commands Best Verbal Response: (V5) oriented [place] Score: 15 Cough lasting greater than 3 weeks: no Patient immunocompromised related to: N/A Allergies: no Last menstrual period: 04-Sep-2021 unknown CARPET SEWER History: (N/A had vasectomy) Patient has homicidal [...] 17-Sep-2021 22:51 by Brittny Porter (SUPV) Normal [facility] UA MICROSCOPICon 09-18-2021 RBC (U) [#/Vol] /uL Abnormal 0-5 [facility] Comment on above: Performed By: #### U AMIC #### [address] [address] SQUAMOUS EPITH. CELLS 1 /HPF Normal [facility] Comment on above: Performed By: #### U AMIC #### [address] [address] WBC 42 /HPF Abnormal 0-5 [facility] Comment on above: Performed By: #### U AMIC #### [address] [address] URINALYSISon 09-18-2021 Appearance (U) HAZY Normal CLEAR [facility] Comment on above: Performed By: #### U A #### [address] [address] Bilirubin Ql (U) Negative Normal NEGATIVE [facility] Comment on above: Performed By: #### U A #### [address] [address] Color (U) Chioma Normal STRAW,YELLOW [facility] Comment on above: Performed By: #### U A #### [address] [address] Glucose Ql (U) Negative Normal NEGATIVE [facility] Comment on above: Performed By: #### U A #### [address] [address] Hemoglobin Ql (U) LARGE(3+) Abnormal NEGATIVE [facility] Comment on above: Performed By: #### U A #### [address] [address] Ketones Ql (U) Negative Normal NEGATIVE [facility] Comment on above: Performed By: #### U A #### [address] [address] Leukocyte esterase Test strip Ql (U) TRACE Abnormal NEGATIVE [facility] Comment on above: Performed By: #### U A #### [address] [address] Nitrite Ql (U) Positive Abnormal NEGATIVE [facility] Comment on above: Performed By: #### U A #### [address] [address] pH (U) 6.0 [pH] Normal 5.0 - 8.[address] [facility] Comment on above: Performed By: #### U A #### [address] [address] Protein Ql (U) >=500(3+) Abnormal NEGATIVE [facility] Comment on above: Performed By: #### U A #### [address] [address] Specific gravity (U) [Rel density] 1.019 Normal 1.005 - 1.[address] [facility] Comment on above: Performed By: #### U A #### [address] [address] Urobilinogen (U) [Mass/Vol] 4.0 mg/dL High 0.0 - 1.[address] [facility] Comment on above: Result Comment: SOME PIGMENTS AND MEDICATIONS MAY CAUSE A FALSE POSITIVE UROBILINOGEN Performed By: #### U A #### [address] [address] Urinalysison 09-18-2021 Color (U) [place] See Below [employer] Work Phone: Comment on above: Reference Range: STR AW,YELLOW Glucose Ql (U) Negative NEGATIVE [employer] Work Phone: Ketones Ql (U) Negative NEGATIVE [employer] Work Phone: Leukocyte esterase Test strip Ql (U) TRACE Abnormal NEGATIVE LV-Pvtuibv-Jeq [facility] Work Phone: pH (U) 6.0 [pH] 5.0 - 8.0 YN-Zgekezl-Hug [facility] Work Phone: Protein (U) [Mass/Vol] >=500(3+) Abnormal NEGATIVE HF-Qddhdrr-Jrd land Work Phone: RBC (U) [#/Vol] LARGE(3+) Abnormal NEGATIVE [facility] [employer] Work Phone: Specific gravity (U) [Rel density] 1.019 1 See Below LR-Byqyrwc-Isz land Work Phone: Comment on above: Reference Range: 1.0 05 - 1.035 Urinalysis Positive Abnormal NEGATIVE RE-Evrwfci-Wzx land Work Phone: Urinalysis 4.0 mg/dL above high threshold 0.0 - 1.9 YR-Huukxvi-Xwu [facility] Work Phone: Comment on above: SOME PIGMENTS AND ME DICATIONS MAY CAUSE AFALSE POSITIVE UROBILINOGEN Urinalysis Negative NEGATIVE DB-Gdxbhsq-Ood [employer] Work Phone: Urinalysis HAZY CLEAR EY-Yenogxa-Bor land Work Phone: Urinalysis, Microscopicon Urinalysis, Microscopic 1 {/HPF} HP-Nnfexyq-Ebw land Work Phone: Urinalysis, Microscopic >182 Abnormal 0-5 GZ-Krltedo-Tmb land Work Phone: Urinalysis, Microscopic 42 {/HPF} Abnormal 0-5 YI-Lcjlqnn-Nry land Work Phone: Urine Teston 09-18 HCG ( test) Ql (U) Negative Negative ZA-Nsymurh-Duu land Work Phone: Bacteria identified Cx Nom ( U)on 09-15-2021 PATIENT: ADRIANE AVALOS LOCATION: [facility]#: [id number] : 87 AGE: SEX: F ORDERED BY: AHMET CARCAMO SOURCE: URINE COLLECTED: 09/14/21 09:24 ANTIBIOTICS AT ILDA.: RECEIVED : 09/14/21 17:25 SITE: R E S U L T S URINE CULTURE,BACTERIAL FINAL 09/15/21 11:04 NO SIGNIFICANT GROWTH. SOFT CONVERSION [facility] CBC AND DIFFERENTIALon 09-14 Basophils (Bld) [#/Vol] 0.10 10*3/uL Normal 0.00 - 0.[address] [facility] Comment on above: Performed By: #### O VPG3 #### [facility] [address] [place] [address] Basophils/100 WBC (Bld) 0.9 % Normal 0.0 - 2.[address] [facility] Comment on above: Performed By: #### O VPG3 #### [facility] [address] [facility] [place] [address] Eosinophils (Bld) [#/Vol] 0.30 10*3/uL Normal 0.00 - 0.[address] [facility] Comment on above: Performed By: #### O VPG3 #### [facility] [address] [facility] [place] [address] Eosinophils/100 WBC (Bld) 4.4 % Normal 0.0 - 6.[address] [facility] Comment on above: Performed By: #### O VPG3 #### [facility] [address] [facility] [place] [address] Erythrocyte distribution width (RBC) [Ratio] 13.8 % Normal 11.5 - 14.[address] [facility] Comment on above: Performed By: #### O VPG3 #### [facility] [address] [facility] [place] [address] Hematocrit (Bld) [Volume fraction] 41.0 % Normal 36.0 - 46.[address] [facility] Comment on above: Performed By: #### O VPG3 #### [facility] [address] [facility] [place] [address] Hemoglobin (Bld) [Mass/Vol] 14.1 g/dL Normal 12.0 - 16.[address] [facility] Comment on above: Performed By: #### O VPG3 #### [facility] [address] [facility] [place] [address] Lymphocytes (Bld) [#/Vol] 3.10 10*3/uL Normal 1.20 - 4.[address] [facility] Comment on above: Performed By: #### O VPG3 #### [facility] [address] [facility] [place] [address] Lymphocytes/100 WBC (Bld) 39.9 % Normal 13.0 - 44.[address] [facility] Comment on above: Performed By: #### O VPG3 #### [facility] [address] [facility] [place] [address] MCHC (RBC) [Mass/Vol] 34.3 g/dL Normal 32.0 - 36.0 [facility] Comment on above: Performed By: #### O VPG3 #### [facility] [address] [facility] [place] [address] MCV (RBC) [Entitic vol] 89 fL Normal 80 - [address] [facility] Comment on above: Performed By: #### O VPG3 #### [facility] [address] [facility] [place] [address] Monocytes (Bld) [#/Vol] 0.60 10*3/uL Normal 0.10 - 1.[address] [facility] Comment on above: Performed By: #### O VPG3 #### [facility] [address] [facility] [place] [address] Monocytes/100 WBC (Bld) 7.5 % Normal 2.0 - 10.[address] [facility] Comment on above: Performed By: #### O VPG3 #### [facility] [address] [facility] [place] [address] Neutrophils (Bld) [#/Vol] 3.70 10*3/uL Normal 1.20 - 7.[address] [facility] Comment on above: Result Comment: Perc ent differential counts (%) should be interpreted in the context of the absolute cell counts (cells/L). Performed By: #### O VPG3 #### [facility] [address] [facility] [place] [address] Neutrophils/100 WBC (Bld) 47.3 % Normal 40.0 - 80.[address] [facility] Comment on above: Performed By: #### O VPG3 #### [facility] [address] [facility] [place] [address] Platelets (Bld) [#/Vol] 313 10*3/uL Normal 150 - [address] [facility] Comment on above: Performed By: #### O VPG3 #### [facility] [address] [facility] [place] [address] RBC 4.63 x10E12/L Normal 4.00 - 5.[address] [facility] Comment on above: Performed By: #### O VPG3 #### [facility] [address] [facility] [place] [address] WBC (Bld) [#/Vol] 7.8 10*3/uL Normal 4.4 - 11.3 [facility] Comment on above: Performed By: #### O VPG3 #### [facility] [address] [facility] [place] [address] CBC W Auto Differential pane l (Bld)on 09-14-2021 Basophils (Bld) [#/Vol] 0.10 10*3/uL [facility] Basophils/100 WBC (Bld) 0.9 % 0.0 - 2.0 % [facility] Eosinophils (Bld) [#/Vol] 0.30 10*3/uL [facility] Eosinophils/100 WBC (Bld) 4.4 % 0.0 - 6.0 % [facility] Erythrocyte distribution width (RBC) [Ratio] 13.8 % 11.5 - 14.5 % [facility] Hematocrit (Bld) [Volume fraction] 41.0 % 36.0 - 46.0 % [facility] Hemoglobin (Bld) [Mass/Vol] 14.1 g/dL 12.0 - 16.0 g/dL [facility] Lymphocytes (Bld) [#/Vol] 3.10 10*3/uL [facility] Lymphocytes/100 WBC (Bld) 39.9 % 13.0 - 44.0 % [facility] MCHC (RBC) [Mass/Vol] 34.3 g/dL 32.0 - 36.0 g/dL [facility] MCV (RBC) [Entitic vol] 89 fL 80 - 100 fL [facility] Monocytes (Bld) [#/Vol] 0.60 10*3/uL [facility] Monocytes/100 WBC (Bld) 7.5 % 2.0 - 10.0 % [facility] Neutrophils (Bld) [#/Vol] 3.70 10*3/uL [facility] Comment on above: Percent differential counts (%) should be interpreted in the context of the absolute cell counts (cells/L). Neutrophils/100 WBC (Bld) 47.3 % 40.0 - 80.0 % [facility] Platelets (Bld) [#/Vol] 313 10*3/uL [facility] RBC (Bld) [#/Vol] 4.63 10*6/uL [facility] WBC (Bld) [#/Vol] 7.8 10*3/uL [facility] COMPREHENSIVE PANELon 2021 Albumin [Mass/Vol] 4.2 g/dL Normal 3.4 - 5.0 [facility] Comment on above: Performed By: #### C MP #### [address] [address] ALP [Catalytic activity/Vol] 54 U/L Normal 33 - [address] [facility] Comment on above: Performed By: #### C MP #### [address] [address] ALT [Catalytic activity/Vol] 19 U/L Normal 7 - [address] [facility] Comment on above: Result Comment: Ingrid ents treated with Sulfasalazine may generate falsely decreased results for ALT. Performed By: #### C MP #### [address] [address] Anion gap [Moles/Vol] 10 mmol/L Normal 10 - 20 [facility] Comment on above: Performed By: #### C MP #### [address] [address] AST [Catalytic activity/Vol] 16 U/L Normal 9 - [address] [facility] Comment on above: Performed By: #### C MP #### [address] [address] Bilirubin [Mass/Vol] 0.5 mg/dL Normal 0.0 - 1.2 [facility] Comment on above: Performed By: #### C MP #### [address] [address] Calcium [Mass/Vol] 8.5 mg/dL Low 8.6 - 10.3 [facility] Comment on above: Performed By: #### C MP #### [address] [address] Chloride [Moles/Vol] 106 mmol/L Normal 98 - 107 [facility] Comment on above: Performed By: #### C MP #### [address] [address] Creatinine [Mass/Vol] 0.92 mg/dL Normal 0.50 - 1.05 [facility] Comment on above: Performed By: #### C MP #### [address] [address] GFR/1.73 sq M.predicted among non-blacks MDRD (S/P/Bld) [Vol rate/Area] 83 mL/min/{1.73_m2} Normal >[address] [facility] Comment on above: Result Comment: CALC ULATIONS OF ESTIMATED GFR ARE PERFORMED USING THE 2020 CKD-EPI STUDY REFIT EQUATION WITHOUT THE RACE VARIABLE FOR THE IDMS-TRACEABLE CREATININE METHODS. https://jasn.asnjournals.org/content/early//ASN.095200 2423 Performed By: #### C MP #### [address] [address] Glucose [Mass/Vol] 100 mg/dL High 74 - 99 [facility] Comment on above: Performed By: #### C MP #### [address] [address] HCO3 (Bld) [Moles/Vol] 27 mmol/L Normal 21 - [address] [facility] Comment on above: Performed By: #### C MP #### [address] [address] Potassium [Moles/Vol] 4.1 mmol/L Normal 3.5 - 5.3 [facility] Comment on above: Performed By: #### C MP #### [address] [address] Protein [Mass/Vol] 6.7 g/dL Normal 6.4 - 8.2 [facility] Comment on above: Performed By: #### C MP #### [address] [address] Sodium [Moles/Vol] 139 mmol/L Normal 136 - 145 [facility] Comment on above: Performed By: #### C MP #### [address] [address] Urea nitrogen [Mass/Vol] 16 mg/dL Normal 6 - [address] [facility] Comment on above: Performed By: #### C MP #### [address] [address] CORONAVIRUS 2019 BY PCRon Lab Specimen Source Nasal, Nasopharyngeal Normal [facility] Comment on above: Performed By: #### C OV19 #### [place] [address] SARS-CoV-2 (COVID-19) RNA YAS+probe Ql (Unsp spec) Not detected Normal Not Detected [facility] Comment on above: Result Comment: . This test has received FDA Emergency Use Authorization (EUA) and has been verified by [facility]. This test is only authorized for the duration of time that circumstances exist to justify the authorization of the emergency use of in vitro diagnostic tests for the detection of SARS-CoV-2 virus and/or diagnosis of COVID-19 infection under section 564(b)(1) of the Act, 21 U.S.C. 360bbb-3(b)(1), unless the authorization is terminated or revoked sooner. [facility] is certified under CLIA-88 as qualified to perform high complexity testing. Testing is performed in the [facility] laboratory located at [address] [place] [address]. SARS-CoV-2/Flu/RSV Multiplex Test: Fact sheet for providers: https://www.fda.gov/media/703448/download Fact sheet for patients: https://www.fda.gov/media/209943/download Performed By: #### C OV19 #### [place] [address] CT ABDOMEN AND PELVIS W IV C Syd 09-14-2021 CT ABDOMEN AND PELVIS W IV CONTRAST Patient Name: ADRIANE AVALOS STUDY: CT ABDOMEN AND PELVIS W IV CONTRAST; 09/14/2021 10:11 am INDICATION: stable. Right lower quadrant pain COMPARISON: 02/18/2016 ACCESSION NUMBER(S): [id number] ORDERING CLINICIAN: AHMET CARCAMO TECHNIQUE: CT of [...] Electronically signed by: LIUDMILA BELTRÁN MD Normal [facility] CT Abdomen and Pelvis W cont rast Solnage 09-14-2021 Patient Name: ADRIANE AVALOS STUDY: CT ABDOMEN AND PELVIS W IV CONTRAST; 09/14/2021 10:11 am INDICATION: stable. Right lower quadrant pain COMPARISON: 02/18/2016 ACCESSION NUMBER(S): [id number] ORDERING CLINICIAN: AHMET CARCAMO TECHNIQUE: CT of [...] lower quadrant pain COMPARISON: 02/18/2016 ACCESSION NUMBER(S): [id number] ORDERING CLINICIAN: AHMET CARCAMO TECHNIQUE: CT of [...] appendicitis or acute abnormality of the bowel. [facility] Work Phone: Radiology Study observation (narrative) [facility] Work Phone: CT Abdomen and Pelvis W cont rast IVOrdered By: Liudmila Beltrán on 09-14-2021 [facility] Work Phone: CT Abdomen and Pelvis with I V Contraston 09-14-2021 CT Abdomen and Pelvis W contrast IV Normal [facility]hi[facility] Work Phone: Complete Blood Count + Diffe rentialon 09-14-2021 Basophils/100 WBC (Bld) 0.9 % 0.0 - 2.0 JM-Pnnmnqq-Ynq[facility]aximm Work Phone: Erythrocyte distribution width (RBC) [Ratio] 13.8 % See Below TQ-Werhoie-Ntn[facility]aximm Work Phone: Comment on above: Reference Range: 11. 5 - 14.5 Hematocrit (Bld) [Volume fraction] 41.0 % See Below NP-Lajoqbx-Nkw land Work Phone: Comment on above: Reference Range: 36. 0 - 46.0 Hemoglobin (Bld) [Mass/Vol] 14.1 g/dL See Below JW-Zvhqkjq-Ntz land Work Phone: Comment on above: Reference Range: 12. 0 - 16.0 Lymphocytes/100 WBC (Bld) 39.9 % See Below GB-Cyjqtjp-Fxg land Work Phone: Comment on above: Reference Range: 13. 0 - 44.0 MCHC (RBC) [Mass/Vol] 34.3 g/dL See Below [facility] Work Phone: Comment on above: Reference Range: 32. 0 - 36.0 MCV (RBC) [Entitic vol] 89 fL 80 - 100 IA-Vjfgtey-Ctd [facility] Work Phone: Monocytes/100 WBC (Bld) 7.5 % 2.0 - 10.0 CM-Ldlrjwg-Ome land Work Phone: Neutrophils/100 WBC (Bld) 47.3 % See Below RI-Vyokwku-Bgk [facility] Work Phone: Comment on above: Reference Range: 40. 0 - 80.0 Platelets (Bld) [#/Vol] 313 10*3/uL 150 - 450 DE-Tiuflei-Cxv land Work Phone: RBC (Bld) [#/Vol] 4.63 {x10E12/L} See Below [employer] Work Phone: Comment on above: Reference Range: 4.0 0 - 5.20 WBC (Bld) [#/Vol] 7.8 10*3/uL 4.4 - 11.3 MP-Uro logy-[facility] Work Phone: Complete Blood Count + Differential 0.10 {x10E9/L} See Below KG-Yqpvnkh-Gcc land Work Phone: Comment on above: Reference Range: 0.0 0 - 0.10 Complete Blood Count + Differential 0.30 {x10E9/L} See Below QA-Rhuscll-Dqy land Work Phone: Comment on above: Reference Range: 0.0 0 - 0.70 Complete Blood Count + Differential 0.60 {x10E9/L} See Below LO-Hqnlcnq-Sko land Work Phone: Comment on above: Reference Range: 0.1 0 - 1.00 Complete Blood Count + Differential 3.10 {x10E9/L} See Below YT-Zoqafkk-Mzy land Work Phone: Comment on above: Reference Range: 1.2 0 - 4.80 Complete Blood Count + Differential 3.70 {x10E9/L} See Below EN-Wkubhhd-Ypo [employer] Work Phone: Comment on above: Reference Range: 1.2 0 - 7.70 Percent differential counts (%) should be interpreted in the context of the absolute cell counts (cells/L). Complete Blood Count + Differential 4.4 % 0.0 - 6.0 NB-Jlxzufe-McyVaximm Work Phone: Comprehensive metabolic 2000 panelon 09-14-2021 Albumin BCP dye [Mass/Vol] 4.2 g/dL 3.4 - 5.0 g/dL [facility] ALP [Catalytic activity/Vol] 54 U/L 33 - 110 U/L [facility] ALT With P-5'-P [Catalytic activity/Vol] 19 U/L 7 - 45 U/L [facility] Comment on above: Patients treated wit h Sulfasalazine may generate falsely decreased results for ALT. Anion gap [Moles/Vol] 10 mmol/L 10 - 20 mmol/L [facility] AST With P-5'-P [Catalytic activity/Vol] 16 U/L 9 - 39 U/L [facility] Bilirubin [Mass/Vol] 0.5 mg/dL 0.0 - 1 .2 mg/dL [facility] Calcium [Mass/Vol] 8.5 mg/dL Low 8.6 - 10. 3 mg/dL [facility] Chloride [Moles/Vol] 106 mmol/L 98 - 10 7 mmol/L [facility] CO2 [Moles/Vol] 27 mmol/L 21 - 32 mmol/L [facility] Creatinine [Mass/Vol] 0.92 mg/dL 0.50 - 1.05 mg/dL [facility] GFR Female 83 - PINF [facility] Comment on above: CALCULATIONS OF THEE MATED GFR ARE PERFORMED USING THE 2020 CKD-EPI STUDY REFIT EQUATION WITHOUT THE RACE VARIABLE FOR THE IDMS-TRACEABLE CREATININE METHODS. https://jasn.asnjournals.org/content//ASN.853558 6695 Glucose [Mass/Vol] 100 mg/dL High 74 - 99 mg/dL [facility] Interpretation and review of laboratory results Abnormal [facility] Potassium [Moles/Vol] 4.1 mmol/L 3.5 - 5.3 mmol/L [facility] Protein [Mass/Vol] 6.7 g/dL 6.4 - 8.2 g/dL Un [facility] Sodium [Moles/Vol] 139 mmol/L 136 - 145 mmol/L [facility] Urea nitrogen [Mass/Vol] 16 mg/dL 6 - 23 mg/dL [facility] Coronavirus 2019 RNA by PCR, Symptomaticon 09-14-2021 Coronavirus 2019 RNA by PCR, Symptomatic Not detected Normal See Below LP-Npcilqy-C [employer] Work Phone: Comment on above: SOURCE: Nasal, Nasop haryngealReference Range: Not Detected.This test has received FDA Emergency Use Authorization (EUA) and has been verified by [facility]. This test is only authorized for the duration of time that circumstances exist to justify the authorization of the emergency use of in vitro diagnostic tests for the detection of SARS-CoV-2 virus and/or diagnosis of COVID-19 infection under section 564(b)(1) of the Act, 21 U.S.C. 360bbb-3(b)(1), unless the authorization is terminated or revoked sooner. [facility] is certified under CLIA-88 as qualified to perform high complexity testing. Testing is performed in the [facility] laboratory located at [address] [place] [address].SARS-CoV-2/Flu/RSV Multiplex Test: Fact sheet for providers: https://www.fda.gov/media/565539/downloadFact sheet for patients: https://www.fda.gov/media/177562/download Covid 19 Resultson 2 SARS-CoV-2 (COVID-19) RNA [...] You may also be contacted by the [facility] to see if any of your [...] or Naproxen (Aleve) can also be used. Cuwa-ymj-jnxeeuc cough and cold medicines can be used according to the instructions on the package. Some lwqa-gla-ccasicb medicines also contain acetaminophen. Make sure you [...] water are not available, use alcohol-based hand curtain stitcher. Avoid touching your eyes, nose, and mouth [...] 24 nela (more content not included)... Normal [facility] Cult, Urineon 09-14-2021 Bacteria identified Cx Nom (U) HO-Jkhdbvg-HffVaximm Work Phone: HCG ( test) IA.rapi d Ql (U)on 09-14-2021 HCG ( test) Ql (U) Negative Negative [facility] HCG,URINEon 09-14-2021 Beta HCG ( test) Ql (U) Negative Normal Negative [facility] Comment on above: Performed By: #### U A #### [facility] [address] [place] [address] LACTATEon 09-14-2021 Lactate [Moles/Vol] 0.6 mmol/L Normal 0.4 - 2.0 [facility] Comment on above: Result Comment: Millicent puncture immediately after or during the administration of Metamizole may lead to falsely low results. Testing should be performed immediately prior to Metamizole dosing. Performed By: #### O VPG3 #### [facility] [address] [place] [address] Laboratory - Chemistry and C hemistry - challengeon 09-14-2021 Albumin BCP dye [Mass/Vol] 4.2 g/dL 3.4 - 5.0 WW-Dagyiwq-BkgVaximm Work Phone: ALP [Catalytic activity/Vol] 54 U/L 33 - 110 AH-Uenzuos-XqmVaximm Work Phone: ALT With P-5'-P [Catalytic activity/Vol] 19 U/L 7 - 45 AU-Ibdrfjb-[employer] Work Phone: Comment on above: Patients treated wit h Sulfasalazine may generate falsely decreased results for ALT. Anion gap [Moles/Vol] 10 mmol/L 10 - 20 [employer] Work Phone: AST With P-5'-P [Catalytic activity/Vol] 16 U/L 9 - 39 JY-Ryytgwa-Pce land Work Phone: Bilirubin [Mass/Vol] 0.5 mg/dL 0.0 - 1.2 MP-U rology-Doc land Work Phone: Calcium [Mass/Vol] 8.5 mg/dL below low threshold 8.6 - 10.3 XG-Meobjeq-Mry land Work Phone: Chloride [Moles/Vol] 106 mmol/L 98 - 107 MP-U rology-Doc land Work Phone: CO2 [Moles/Vol] 27 mmol/L 21 - 32 MP-Urolog y-Doc land Work Phone: Creatinine [Mass/Vol] 0.92 mg/dL See Below MP- Urology-Doc land Work Phone: Comment on above: Reference Range: 0.5 0 - 1.05 Glucose [Mass/Vol] 100 mg/dL above high threshold 74 - 99 GV-Rqjmerx-Hjn land Work Phone: Potassium [Moles/Vol] 4.1 mmol/L 3.5 - 5.3 MP- Urology-Doc land Work Phone: Protein [Mass/Vol] 6.7 g/dL 6.4 - 8.2 MP-Uro logy-Doc land Work Phone: Sodium [Moles/Vol] 139 mmol/L 136 - 145 MP-Uro logy-Doc land Work Phone: Urea nitrogen [Mass/Vol] 16 mg/dL 6 - 23 EZ-Yflaths-Maq land Work Phone: Lactateon 09-14-2021 Lactate [Moles/Vol] 0.6 mmol/L 0.4 - 2. 0 mmol/L [facility] Comment on above: Venipuncture immedia tely after or during the administration of Metamizole may lead to falsely low results. Testing should be performed immediately prior to Metamizole dosing. Lactate [Moles/Vol]on 2021 [facility] Lactate, Levelon 09-14-2021 Lactate [Moles/Vol] 0.6 mmol/L 0.4 - 2.0 MP-Ur ology-[facility] Work Phone: Comment on above: Venipuncture immedia tely after or during the administration of Metamizole may lead to falsely low results. Testing should be performed immediately prior to Metamizole dosing. No Panel Informationon 09-14 Please click on the link to view the study images Normal PU-Zbzhcfx-Kne land Work Phone: [facility] 83 {mL/min/1.73m2} >90 MP-Uro logy-[facility] Work Phone: Comment on above: CALCULATIONS OF THEE MATED GFR ARE PERFORMED USING THE 2020 CKD-EPI STUDY REFIT EQUATION WITHOUT THE RACE VARIABLE FOR THE IDMS-TRACEABLE CREATININE METHODS.https://jasn.asnjournals.org/content/early/ N.2919568739 Order Reconciliationon 09-14 Order Reconciliation Page 1 [...] online in your Personal Health Record (PHR). 1.[facility] Document Architecture (C-CDA) Patient Discharge Summary This document is a summary of your hospital stay to be kept for your reference.2.C-CDA Visit Summary This document is a summary of your hospital stay to be shared with your follow-up providers (doctor, end frazer, physical therapist, etc.). Follow Up with Dr [...] online in your Personal Health Record (PHR). 1.[facility] Document Architecture (C-CDA) Patient Discharge Summary This document is a summary of your hospital stay to be kept for your reference.2.C-CDA Visit Summary This document is a summary of your hospital stay to be shared with your follow-up providers (doctor, end frazer, physical therapist, etc.). Follow Up with Dr [...] orally every 8 hours, As Needed Normal [facility] Preop Checkliston 09-14-2021 Preop Checklist Preop Checklist: Preop Checklist: Arrival [id number] Arrival Time13:00 Procedure Typeright cystoscopy, stent placement Temperature C36.7 degrees C Temperature F98.1 degrees F Heart Rate50 beats per minute Respiratory Rate16 breath per minute Blood Pressure Phxxpxtw040 mm/Hg Blood Pressure Njfnaeooj64 mm/Hg COVID 19 Results in Last 7 daysnegative NPOyes Last Food [id number] 18:00 Last Clear Fluid Nlveai29-Plq-3950 18:00 NPO Commentyes ID Band On Patientpatient [...] Updated: 14-Sep-2021 13:23 by Mayra Olguin (RN) [facility] Provider Note - ED v3on 07- Provider [...] Reference Range: STRAW,YELLOW Appearance, Urine HAZY Specific [place], Urine 1.021 pH, Urine 5.0 Protein, Urine [...] Anion G (more content not included)... Normal [facility] RF Kidney and Ureter and Uri nary bladder Views W contrast retrogradeon 09-14-2021 [employer] LEGACY CONVERSIONS Conversion, Ge Radiology - 04/20/2022 [facility] Work Phone: Radiology Study observation (narrative) [facility] Work Phone: RF Kidney and Ureter and Uri nary bladder Views W contrast retrogradeOrdered By: Ge Conversion on 09-14-2021 [facility] Risk Screen - Adult Emergenc yon [...] instruction; written material Cultural Considerationsnone Developmental Considerationsnone Druze Considerationsnone Learning Assessment (Other Learner): Learning Assessment [...] an injured patient at a Trauma Center ([facility]/[place]/Ash/Sis lisbeth/Ozzy/[place]): no Electronic Signatures: Rita Stevenson (RN) (Signed 14-Sep-2021 08:57) Authored: Preferred Language, Advanced Directives, Family Violence Adult, Learning Assessment (Patient), Learning Assessment (Other Learner), Pressure Injury/TB/Substance, Pressure Injury, CAGE Last Updated: 14-Sep-2021 08:57 by Rita Stevenson (RN) [facility] SARS-CoV-2 (COVID-19) RNA NA A+probe Ql (Resp)on 09-14-2021 SARS-related CoV RNA YAS+probe Ql (Resp) Not detected Not Detected [facility] Comment on above: . This test has received [facility] Emergency Use Authorization (EUA) and has been verified by [facility]. This test is only authorized for the duration of time that circumstances exist to justify the authorization of the emergency use of in vitro diagnostic tests for the detection of SARS-CoV-2 virus and/or diagnosis of COVID-19 infection under section 564(b)(1) of the Act, 21 U.S.C. 360bbb-3(b)(1), unless the authorization is terminated or revoked sooner. [facility] is certified under CLIA-88 as qualified to perform high complexity testing. Testing is performed in the [facility] laboratory located at [address] [place] [address]. SARS-CoV-2/Flu/RSV Multiplex Test: Fact sheet for providers: https://www.fda.gov/media/275589/download Fact sheet for patients: https://www.fda.gov/media/389358/download [facility] Triage - EDon 09-14-2021 Triage - [...] immediate family member Language: Spoken Language Preferred: Ugandan Reading Language Preferred: Ugandan Present on Arrival: Device Present on Arrival [...] BMI (kg/m2): 23.496 Calculated BSA (m2) 1.75 [place] Coma Scale: Best Eye Response: (E4) spontaneous [...] 14-Sep-2021 08:56 by Rita Stevenson (MARYAN) Normal [facility] UA MICROSCOPICon 09-14-2021 BACTERIA 1+ /HPF Abnormal [facility] Comment on above: Performed By: #### U AMIC #### [place] [address] Mucus Ql (Urine sed) 2+ /LPF Normal [facility] Comment on above: Performed By: #### U AMIC #### [place] [address] RBC 8 /HPF Abnormal 0-[address] [facility] Comment on above: Performed By: #### U AMIC #### [place] [address] SQUAMOUS EPITH. CELLS 12 /HPF Normal [facility] Comment on above: Performed By: #### U AMIC #### [place] [address] WBC 12 /HPF Abnormal 0-[address] [facility] Comment on above: Performed By: #### U AMIC #### [address] Surgical Pathology Depar tmenton 09-14-2021 [facility] Surgical Pathology Department Name ADRIANE AVALOS Pathologist: PETE JEFFERSON Date of Procedure: 09/14/2021 Date Received: 09/15/2021 Date Reported 09/25/2021 Submitting Physician: AZAEL HINDS II, MD Location: [facility] Other External # FINAL DIAGNOSIS A. STONE CALCULI: --GROSS DIAGNOSIS ONLY: CALCULUS MATERIAL, SENT FOR STONE ANALYSIS. Electronically Signed Out By PETE JEFFERSON/IDALMIS By the signature on this report, the individual or group listed as making the Final Interpretation/Diagno sis certifies that they have reviewed this case. Diagnostic interpretation performed at [address] [place] [address] Clinical History: Clinical Diagnosis History UETER CALCULI [...] is for gross examination only. RCC 09/16/2021 [facility] Department of Pathology [address] [place] [address] Normal [facility] Comment on above: Performed By: #### U HCS #### [facility] Surgical Pathology Department [address] [place] [address] URINALYSIS WITH CULTURE IF I NDICATEDon 09-14-2021 Appearance (U) HAZY Normal CLEAR [facility] Comment on above: Performed By: #### U A #### [address] [address] Bilirubin Ql (U) Negative Normal NEGATIVE [facility] Comment on above: Performed By: #### U A #### [address] [address] Color (U) Yellow Normal STRAW,YELLOW [facility] Comment on above: Performed By: #### U A #### [address] [address] Glucose Ql (U) Negative Normal NEGATIVE [facility] Comment on above: Performed By: #### U A #### [address] [address] Hemoglobin Ql (U) SMALL(1+) Abnormal NEGATIVE [facility] Comment on above: Performed By: #### U A #### [address] [address] Ketones Ql (U) Negative Normal NEGATIVE [facility] Comment on above: Performed By: #### U A #### [address] [address] Leukocyte esterase Test strip Ql (U) TRACE Abnormal NEGATIVE [facility] Comment on above: Performed By: #### U A #### [address] [address] Nitrite Ql (U) Negative Normal NEGATIVE [facility] Comment on above: Performed By: #### U A #### [address] [address] pH (U) 5.0 [pH] Normal 5.0 - 8.[address] [facility] Comment on above: Performed By: #### U A #### [address] [address] Protein Ql (U) Negative Normal NEGATIVE [facility] Comment on above: Performed By: #### U A #### [address] [address] Specific gravity (U) [Rel density] 1.021 Normal 1.005 - 1.[address] [facility] Comment on above: Performed By: #### U A #### [address] [address] Urobilinogen (U) [Mass/Vol] mg/dL Normal 0.0 - 1.[address] [facility] Comment on above: Performed By: #### U A #### [address] [address] Color (U) Yellow See Below FH-Irarfuc-Veo land Work Phone: Comment on above: Reference Range: STR AW,YELLOW Glucose Ql (U) Negative NEGATIVE -[facility]rology -[facility] Work Phone: Ketones Ql (U) Negative NEGATIVE -Urolog [employer] Work Phone: Leukocyte esterase Test strip Ql (U) TRACE Abnormal NEGATIVE CT-Lnamlzc-Mid land Work Phone: pH (U) 5.0 [pH] 5.0 - 8.0 DO-Xqwwdyc-Fku land Work Phone: Protein (U) [Mass/Vol] Negative NEGATIVE RW-Iyyhwaw-Fgf land Work Phone: RBC (U) [#/Vol] SMALL(1+) Abnormal NEGATIVE [employer] Work Phone: Specific gravity (U) [Rel density] 1.021 1 See Below FE-Vgfmrja-Lsl land Work Phone: Comment on above: Reference Range: 1.0 05 - 1.035 URINALYSIS WITH CULTURE IF INDICATED Negative NEGATIVE [employer] Work Phone: URINALYSIS WITH CULTURE IF INDICATED <2.0 0.0 - 1.9 [employer] Work Phone: URINALYSIS WITH CULTURE IF INDICATED HAZY CLEAR [employer] Work Phone: URINE CULTURE,BACTERIALon URINE CULTURE,BACTERIAL PATIENT: ADRIANE AVALOS LOCATION: [facility]#: [id number] : 87 AGE: SEX: F ORDERED BY: AHMET CARCAMO SOURCE: URINE COLLECTED: 09/14/21 09:24 ANTIBIOTICS AT ILDA.: RECEIVED : 09/14/21 17:25 SITE: R E S U L T S URINE CULTURE,BACTERIAL FINAL 09/15/21 11:04 NO SIGNIFICANT GROWTH. [facility] Comment on above: Performed By: #### U [facility] #### [facility] [address] [address] [facility] [place] [address] Urinalysis complete W Reflex Culture panel (U)on 09-14-2021 Appearance (U) HAZY CLEAR [facility] Bilirubin (U) [Mass/Vol] Negative NEGATIVE [facility] Color (U) Yellow STRAW,YELLOW [facility] Glucose Auto test strip (U) [Mass/Vol] Negative NEGATIVE mg/dL [facility] Interpretation and review of laboratory results Abnormal [facility] Ketones (U) [Mass/Vol] Negative NEGATIVE mg/dL [facility] Leukocyte esterase Auto test strip Ql (U) TRACE Abnormal NEGATIVE [facility] Nitrite Auto test strip Ql (U) Negative NEGATIVE [facility] pH (U) 5.0 [pH] 5.0 - 8.0 [facility] Protein (U) [Mass/Vol] Negative NEGATIVE mg/dL [facility] RBC (U) [#/Vol] SMALL(1+) Abnormal NEGATIVE [facility] Specific gravity (U) [Rel density] 1.021 1.005 - 1.035 [facility] Urobilinogen (U) [Mass/Vol] mg/dL 0.0 - 1.9 mg/dL [facility] Urinalysis microscopic panel Auto Ql (U)on 09-14-2021 Bacteria Auto (Urine sed) [#/Area] 1+ Abnormal /HPF [facility] Epithelial cells.squamous Auto (Urine sed) [#/Area] 12 /HPF [facility] Interpretation and review of laboratory results Abnormal [facility] Mucus Auto (Urine sed) [#/Area] 2+ /LPF [facility] RBC Auto (Urine sed) [#/Area] 8 Abnormal [facility] WBC Auto (Urine sed) [#/Area] 12 Abnormal [facility] Urinalysis, Microscopicon Urinalysis, Microscopic 2+ BN-Xftpgui-Nrg land Work Phone: Urinalysis, Microscopic 1+ Abnormal LK-Bkidipp-Szp land Work Phone: Urinalysis, Microscopic 12 {/HPF} Abnormal 0-5 SY-Vmcwgpp-Atk land Work Phone: Urinalysis, Microscopic 8 {/HPF} Abnormal 0-5 LM-Lximwwf-Plc land Work Phone: Urine Teston 09-14 HCG ( test) Ql (U) Negative Negative CO-Wblnnsw-Qio land Work Phone: OVA/PARA + GIARDIA/CRYPTOSPO RIDIUM ANTIGENon 05-12-2021 OVA + PARASITE EXAM Negative Normal Negative [facility] Comment on above: Order Comment: TAKEN FROM [place], WENT [place] Result Comment: INTE RPRETIVE INFORMATION: Ova and [...] Microsporidia. For additional test information refer to [employer] consult, [email or web address] Performed By: [employer] [address] [place] [address] [employer] Tender Cloth: Cinda Mcghee MD Performed By: #### O VPG3 #### [place] [address] OVA/PARA + GIARDIA/CRYPTOSPO RIDIUM ANTIGENon 05-10-2021 GIARDIA ANTIGEN Negative Normal Negative [facility] Comment on above: Order Comment: TAKEN FROM [place], WENT TO [place] Result Comment: Perf ormed By: NMRUPINDER [facility] [address] [place] [address] [employer]: Cinda Mcghee MD Performed By: #### O VPG3 #### [place] [address] CRYPTOSPORIDIUM ANTIGEN Negative Normal Negative [facility] Comment on above: Order Comment: TAKEN FROM [place], WENT TO [place] Result Comment: Perf ormed By: [facility] [address] [place] [address] [employer]: Cinda Mcghee MD Performed By: #### O VPG3 #### [place] [address] No Panel Informationon 05-06 Negative Negative [facility] Work Phone: Comment on above: Performed By: CRISTOBAL [place], [place] [address]Laboratory Director: Cinda Mcghee MD SOURCE: INTERPRETIVE INFORMATION: [...] Microsporidia. For additional test information refer to [employer] consult, https://[email or web address] Desk/content/diarrheaPerformed By: [employer] [place], [place] [address]Urbbwqilsq Director: Cinda Mcghee MD OVA/PARA + GIARDIA/CRYPTOSPO RIDIUM ANTIGENon 05-06-2021 Lab Specimen Source [facility] Comment on above: Order Comment: TAKEN FROM [place], WENT TO [place] Performed By: #### O VPG3 #### [facility] [address] [place] [address] CHEST 2 VIEW PA AND LATon CHEST 2 VIEW PA AND LAT Patient Name: ADRIANE AVALOS STUDY: TH CHEST 2 VIEW PA AND LAT; 05/03/2021 10:36 am INDICATION: pain in the posterior chestwall. R07.89: Chest wall pain. COMPARISON: None. ACCESSION NUMBER(S): [id number] ORDERING CLINICIAN: BENNY GALINDO FINDINGS: CARDIOMEDIASTINAL SILHOUETTE: Cardiomediastinal silhouette is normal in size and configuration. LUNGS: There are no focal areas of consolidation or pleural effusions noted. ABDOMEN: No remarkable upper abdominal findings. BONES: No acute osseous changes. IMPRESSION: 1. No evidence of acute cardiopulmonary process. Electronically signed by: SHORTY JARRELL MD [facility] Office Visit (Family Medicin e)on 05-03-2021 Follow-up [...] type (787.91) (R19.7) Gastritis (535.50) (K29.70) Hookworm, Puerto Rican (126.1) (B76.1) Stuffy and runny nose (478.19) [...] 1 TABLET TWICE DAILY FOR 3 DAYSHookworm, Puerto Rican Benadryl Allergy TABS Fluticasone Propionate 50 MCG/ACT Nasal Suspensioninstill 1 spray into each nostril once daily Zyrtec TABS Vitals Vital Signs Recorded: 03May2021 09:33AM Heart Rate96 Rogimaoy043 Sdbkhenpt14 Height5 ft 7 in Hdkzyx161 lb 5.86 oz BMI Bbkcpvlcvo60.99 kg/m2 BSA Calculated1.74 Tobacco Usea) Yes Patient encouraged to stop using tobacco productsYes Physical Exam Healing wounds are noticed in her forearms. Otherwise normal examination. Results/Data Xray Chest 2 View PA + [id number] 10:36Dayan Masters Test NameResultFlagReferen ce Xray Chest 2 View PA + Lateral(Report) FINAL REPORT Interpreted by: SHORTY JARRELL CRAIG, MD 05/04/21 10:53 Patient Name: ADRIANE VAALOS STUDY: TH CHEST 2 VIEW PA AND LAT; 05/03/2021 10:36 am INDICATION: pain in the posterior chestwall. R07.89: Chest wall pain. COMPARISON: None. ACCESSION NUMBER(S): [id number] ORDERING CLINICIAN: BENNY GALINDO FINDINGS: CARDIOMEDIASTINAL SILHOUETTE: [...] Results Xray Chest 2 View PA + [id number] 10:36Dayan Masters Test NameResultFlagReferen ce Xray Chest 2 View PA + Lateral(Report) FINAL REPORT Interpreted by: SHORTY JARRELL CRAIG, MD 05/04/21 10:53 Patient Name: ADRIANE AVALOS STUDY: TH CHEST 2 VIEW PA A (more content not included)... Normal [facility] Radiologyon 05-03-2021 XR Chest 2 Views Please click on the link to view the study images Normal -[facility] Work Phone: XR Chest 2 Views Normal [facility] Work Phone: Tobacco Screening.on 022 Tobacco use status CPHS a) Yes [facility] Work Phone: Tobacco Screening. Yes [place] [facility] Work Phone: OVA/PARA + GIARDIA/CRYPTOSPO RIDIUM ANTIGENon 04-27-2021 OVA + PARASITE EXAM Negative Normal Negative [facility] Comment on above: Result Comment: INTE RPRETIVE [...] Microsporidia. For additional test information refer to [employer] consult, [email or web address] Performed By: [facility] [address] [place] [address] Indigo Vat Tender Cloth: Cinda Mcghee MD Performed By: #### O VPG3 #### [employer] [address] [place], [place] [address] [address] [place] [address] OVA/PARA + GIARDIA/CRYPTOSPO RIDIUM ANTIGENon 04-23-2021 GIARDIA ANTIGEN Negative Normal Negative [facility] Comment on above: Result Comment: Perf ormed By: [employer] [address] [place] [address] Indigo Vat Tender Cloth: Cinda Mcghee MD Performed By: #### O VPG3 #### [facility] [address] [place] [address] [facility] [address] [place] [address] CRYPTOSPORIDIUM ANTIGEN Negative Normal Negative [facility] Comment on above: Result Comment: Perf ormed By: [facility] [address] [place] [address] Indigo Vat Tender Cloth: Cinda Mcghee MD Performed By: #### O VPG3 #### [facility] [address] [place] [address] [facility] [address] [place] [address] No Panel Informationon 04-20 Negative Negative [facility] Work Phone: Comment on above: Performed By: CRISTOBAL Chairez [id number] [place], [place] [address]Laboratory Director: Cinda Mcghee MD SOURCE: INTERPRETIVE INFORMATION: [...] Microsporidia. For additional test information refer to [facility] consult, [email or web address] By: CRISTOBAL Rodriguez[address] [place], [place] [address]Laboratory Director: Cinda Mcghee MD OVA/PARA + GIARDIA/CRYPTOSPO RIDIUM ANTIGENon 04-20-2021 Lab Specimen Source Normal [facility] Comment on above: Performed By: #### O VPG3 #### [facility] [address] [place], [place] [id number] [place] [address] Office Visit (Family Medicin e)on 04-18-2021 Follow-up visit Diagnoses/Problems Anxiety (300.00) (F41.9) Hookworm, Puerto Rican (126.1) (B76.1) Orders Anxiety Start: ALPRAZolam 0.5 MG Oral Tablet; 0.5 - 1 tabs 3 times daily as needed Hookworm, [place] Start: Emverm 100 MG Oral Tablet Chewable (Mebendazole); CHEW AND SWALLOW 1 TABLET TWICE DAILY FOR 3 DAYS Ova and Parasite + Giardia/Crypto Ag; Status:Active; Requested for:[id number]; Patient History : Travel History Chief Complaint [...] expressed from the wounds. She traveled to [place] about a month ago. Other than that [...] 8:42 amSigned by: Natalya Wise DO Technologist: [facility] Vital Signs Date Time Vital Sign Value Performing Clinician Faci lity 12-06-2024 23:51-0400 Body temperature 97.6 [degF] No Primary Care Physician [facility] 12-06-2024 23:51-0400 Diastolic blood pressure 71 mm[Hg] No Primary Care Physician [facility] 12-06-2024 23:51-0400 Heart rate 90 /min No Primary Care Physician [facility] 12-06-2024 23:51-0400 Respiratory rate 16 /min No Primary Care Physician [facility] 12-06-2024 23:51-0400 Systolic blood pressure 129 mm[Hg] No Primary Care Physician [facility] 12-06-2024 23:39-0400 Body height 167.64 cm No Primary Care Physician [facility] 12-06-2024 23:39-0400 Body mass index (BMI) [Ratio] 24.5 kg/m2 No Primary Care Physician [facility] 12-06-2024 23:39-0400 Body weight 68.76 kg No Primary Care Physician [facility] 10-13-2024 10:57-0400 Body mass index (BMI) [Ratio] 21.76 kg/m2 Abad Strong MD Work Phone: [facility] 10-13-2024 10:57-0400 Body weight 62.51 kg Abad Strong MD Work Phone: [facility] 10-13-2024 10:57-0400 Diastolic blood pressure 66 mm[Hg] Abad Strong MD Work Phone: [facility] 10-13-2024 10:57-0400 Systolic blood pressure 114 mm[Hg] Abad Strong MD Work Phone: [facility] 10-13-2024 09:06-0400 Body mass index (BMI) [Ratio] 21.91 kg/m2 Unique Mejia MD Work Phone: [facility] 10-13-2024 09:06-0400 Body weight 62.96 kg Unique Mejia MD Work Phone: [facility] 10-13-2024 09:06-0400 Diastolic blood pressure 62 mm[Hg] Unique Mejia MD Work Phone: [facility] 10-13-2024 09:06-0400 Systolic blood pressure 100 mm[Hg] Unique Mejia MD Work Phone: [facility] 09-14-2024 09:22-0400 Body mass index (BMI) [Ratio] 21.31 kg/m2 Jen Plotts TEMPLATE REPRODUCTION TECHNICIAN.CNM Work Phone: [facility] 09-14-2024 09:22-0400 Body weight 61.24 kg Jen Plotts TEMPLATE REPRODUCTION TECHNICIAN.CNM Work Phone: [facility] 09-14-2024 09:22-0400 Diastolic blood pressure 60 mm[Hg] Jen Plotts TEMPLATE REPRODUCTION TECHNICIAN.CNM Work Phone: [facility] 09-14-2024 09:22-0400 Systolic blood pressure 96 mm[Hg] Jen Plotts TEMPLATE REPRODUCTION TECHNICIAN.CNM Work Phone: [facility] 08-26-2024 10:20-0400 Body mass index (BMI) [Ratio] 21.16 kg/m2 Jen Plotts TEMPLATE REPRODUCTION TECHNICIAN.CNM Work Phone: [facility] 08-26-2024 10:20-0400 Body weight 60.78 kg Jen Plotts TEMPLATE REPRODUCTION TECHNICIAN.CNM Work Phone: [facility] 08-26-2024 10:20-0400 Diastolic blood pressure 66 mm[Hg] Jen Plotts TEMPLATE REPRODUCTION TECHNICIAN.CNM Work Phone: [facility] 08-26-2024 10:20-0400 Systolic blood pressure 118 mm[Hg] Jen Plotts TEMPLATE REPRODUCTION TECHNICIAN.CNM Work Phone: [facility] 08-04-2024 08:45-0400 Body height 169.5 cm Jen Plotts TEMPLATE REPRODUCTION TECHNICIAN.CNM Work Phone: [facility] 08-04-2024 08:45-0400 Body mass index (BMI) [Ratio] 21.47 kg/m2 Jen Plotts TEMPLATE REPRODUCTION TECHNICIAN.CNM Work Phone: [facility] 08-04-2024 08:45-0400 Body weight 61.69 kg Jen Bowling TEMPLATE REPRODUCTION TECHNICIAN.CNM Work Phone: [facility] 08-04-2024 08:45-0400 Diastolic blood pressure 66 mm[Hg] Jen Bowling TEMPLATE REPRODUCTION TECHNICIAN.CNM Work Phone: [facility] 08-04-2024 08:45-0400 Systolic blood pressure 102 mm[Hg] Jen Bowling TEMPLATE REPRODUCTION TECHNICIAN.CNM Work Phone: [facility] 07-28-2024 11:12-0400 Body height 167.6 cm Sanjuanita Rodarte MD Work Phone: [facility] 07-28-2024 11:12-0400 Body mass index (BMI) [Ratio] 22.27 kg/m2 Sanjuanita Rodarte MD Work Phone: [facility] 07-28-2024 11:12-0400 Body weight 62.6 kg Sanjuanita Rodarte MD Work Phone: [facility] 05-01-2024 09:10-0500 Body height 168.9 cm Valeria Werner MD Work Phone: [facility] 05-01-2024 09:10-0500 Body mass index (BMI) [Ratio] 20.89 kg/m2 Valeria Werner MD Work Phone: [facility] 05-01-2024 09:10-0500 Body temperature 96.8 [degF] Valeria Werner MD Work Phone: [facility] 05-01-2024 09:10-0500 Body weight 59.6 kg Valeria Werner MD Work Phone: [facility] 05-01-2024 09:10-0500 Diastolic blood pressure 85 mm[Hg] Valeria Werner MD Work Phone: [facility] 05-01-2024 09:10-0500 Heart rate 76 /min Valeria Werner MD Work Phone: [facility] 05-01-2024 09:10-0500 Respiratory rate 20 /min Valeria Werner MD Work Phone: [facility] 05-01-2024 09:10-0500 SaO2% (BldA) [Mass fraction] 99 % Valeria Werner MD Work Phone: [facility] 05-01-2024 09:10-0500 Systolic blood pressure 106 mm[Hg] Valeria Werner MD Work Phone: [facility] 04-23-2024 15:38-0500 Body height 167.6 cm Lisa Rommel TEMPLATE REPRODUCTION TECHNICIAN.SALESPERSON [employer] Work Phone: [facility] 04-23-2024 15:38-0500 Body mass index (BMI) [Ratio] 22.18 kg/m2 Lisa Rommel TEMPLATE REPRODUCTION TECHNICIAN.SALESPERSON [employer] Work Phone: [facility] 04-23-2024 15:38-0500 Body weight 62.32 kg Lisa [place] TEMPLATE REPRODUCTION TECHNICIAN.SALESPERSON [employer] Work Phone: [facility] 04-23-2024 15:38-0500 Diastolic blood pressure 70 mm[Hg] Lisa [place] TEMPLATE REPRODUCTION TECHNICIAN.SALESPERSON [employer] Work Phone: [facility] 04-23-2024 15:38-0500 Systolic blood pressure 120 mm[Hg] Lisa [place] TEMPLATE REPRODUCTION TECHNICIAN.SALESPERSON [employer] Work Phone: [facility] 04-14-2024 15:08-0500 Body height 167.6 cm Sanjuanita Rodarte MD Work Phone: [facility] 04-14-2024 15:08-0500 Body mass index (BMI) [Ratio] 24.21 kg/m2 Sanjuanita Rodarte MD Work Phone: [facility] 04-14-2024 15:08-0500 Body weight 68.04 kg Sanjuanita Rodarte MD Work Phone: [facility] 04-14-2024 15:08-0500 Diastolic blood pressure 72 mm[Hg] Sanjuanita Rodarte MD Work Phone: [facility] 04-14-2024 15:08-0500 Heart rate 68 /min Sanjuanita Rodarte MD Work Phone: [facility] 04-14-2024 15:08-0500 Respiratory rate 18 /min Sanjuanita Rodarte MD Work Phone: [facility] 04-14-2024 15:08-0500 Systolic blood pressure 116 mm[Hg] Sanjuanita Rodarte MD Work Phone: [facility] 03-26-2024 11:11-0500 Body height 167.6 cm Sanjuanita Rodarte MD Work Phone: [facility] 03-26-2024 11:11-0500 Body mass index (BMI) [Ratio] 24.21 kg/m2 Sanjuanita Rodarte MD Work Phone: [facility] 03-26-2024 11:11-0500 Body weight 68.04 kg Sanjuanita Rodarte MD Work Phone: [facility] 09-20-2023 13:36-0400 Body height 167.6 cm Shila Herrera MD Work Phone: [facility] 09-20-2023 13:36-0400 Body mass index (BMI) [Ratio] 22.6 kg/m2 Shila Herrera MD Work Phone: [facility] 09-20-2023 13:36-0400 Body temperature 97.81 [degF] Shila Herrera MD Work Phone: [facility] 09-20-2023 13:36-0400 Body weight 63.5 kg Shila Herrera MD Work Phone: [facility] 09-20-2023 13:36-0400 Diastolic blood pressure 74 mm[Hg] Shila Herrera MD Work Phone: [facility] 09-20-2023 13:36-0400 Heart rate 90 /min Shila Herrera MD Work Phone: [facility] 09-20-2023 13:36-0400 Respiratory rate 17 /min Shila Herrera MD Work Phone: [facility] 09-20-2023 13:36-0400 SaO2% (BldA) [Mass fraction] 99 % Shila Herrera MD Work Phone: [facility] 09-20-2023 13:36-0400 Systolic blood pressure 110 mm[Hg] Shila Herrera MD Work Phone: [facility] 09-09-2023 20:02-0400 Diastolic blood pressure 67 mm[Hg] Dayan Galindo MD MPH Work Phone: [facility] 09-09-2023 20:02-0400 Heart rate 60 /min Dayan Galindo MD MPH Work Phone: [facility] 09-09-2023 20:02-0400 Respiratory rate 16 /min Dayan Galindo MD MPH Work Phone: [facility] 09-09-2023 20:02-0400 SaO2% (BldA) [Mass fraction] 96 % Dayan Galindo MD MPH Work Phone: [facility] 09-09-2023 20:02-0400 Systolic blood pressure 110 mm[Hg] Dayan Galindo MD MPH Work Phone: [facility] 09-09-2023 15:54-0400 Body height 167.6 cm Dayan Galindo MD MPH Work Phone: [facility] 09-09-2023 15:54-0400 Body mass index (BMI) [Ratio] 24.21 kg/m2 Dayan Galindo MD MPH Work Phone: [facility] 09-09-2023 15:54-0400 Body temperature 97.59 [degF] Dayan Galindo MD MPH Work Phone: [facility] 09-09-2023 15:54-0400 Body weight 68.04 kg Dayan Galindo MD MPH Work Phone: [facility] 04-18-2023 15:29-0500 Body height 167.6 cm Lisa Rommel TEMPLATE REPRODUCTION TECHNICIAN.S[employer]ESPERSON [employer] Work Phone: [facility] 04-18-2023 15:29-0500 Body weight 71.4 kg Lisa [place] TEMPLATE REPRODUCTION TECHNICIAN.S[employer]ESPERSON [employer] Work Phone: [facility] 04-18-2023 15:29-0500 Diastolic blood pressure 76 mm[Hg] Lisa Rommel TEMPLATE REPRODUCTION TECHNICIAN.S[employer]ESPERSON [employer] Work Phone: [facility] 04-18-2023 15:29-0500 Systolic blood pressure 110 mm[Hg] Lisa Rommel TEMPLATE REPRODUCTION TECHNICIAN.SALESPERSON [employer] Work Phone: [facility] 11-29-2021 11:10-0400 Diastolic blood pressure 86 mm[Hg] Dayan Nag [facility]apared[facility] 11-29-2021 11:10-0400 Heart rate 102 /min Dayan Lilibeth [facility]ap[facility] 11-29-2021 11:10-0400 Respiratory rate 18 /min Dayan Nag Mallapareddi [facility] 11-29-2021 11:10-0400 SaO2% (BldA) [Mass fraction] 98 % Dayan Nag [facility]apareddi [facility] 11-29-2021 11:10-0400 Systolic blood pressure 97 mm[Hg] Dayan Nag [facility]apareddi [facility] 11-29-2021 10:18-0400 Body height 167.6 cm Dayan Nag [facility]apareddi [facility] 11-29-2021 10:18-0400 Body temperature 100.76 [degF] Dayan Nag [facility]apareddi [facility] 11-29-2021 10:18-0400 Body weight 63.5 kg Dayan Nag [facility]apareddi [facility] 09-18-2021 11:43-0400 Body height 170.18 cm Dayan Nag S Mallapareddi Work Phone: WM-Dbqqucz-Vhcoxbm Work Phone: 09-18-2021 11:43-0400 Body mass index (BMI) [Ratio] 21.67 kg/m2 Dayan Nag S Mallapareddi Work Phone: GE-Nxqgrge-Zvgrvuw Work Phone: 09-18-2021 11:43-0400 Body surface area Derived from formula 1.73 m2 Dayan Nag S Mallapareddi Work Phone: OH-Ymssojw-Furqonc Work Phone: 09-18-2021 11:43-0400 Body weight 62.77 kg Dayan Nag S Mallapareddi Work Phone: WK-Zcgpgwz-Gkhuhbe Work Phone: 09-18-2021 11:43-0400 Diastolic blood pressure 70 mm[Hg] Dayan Nag S Mallapareddi Work Phone: NP-Rvmkalr-Jxcioaj Work Phone: 09-18-2021 11:43-0400 Heart rate 70 /min Dayan Nag S Mallapareddi Work Phone: RY-Qrzqnix-Mnkzwjt Work Phone: 09-18-2021 11:43-0400 Systolic blood pressure 118 mm[Hg] Dayan Nag S Mallapareddi Work Phone: CA-Nmjmanv-Jvogqho Work Phone: 09-18-2021 05:30-0400 Diastolic blood pressure 72 mm[Hg] Dayan Nag [facility]apareddi [facility] 09-18-2021 05:30-0400 Heart rate 61 /min Dayan Nag [facility]apareddi [facility] 09-18-2021 05:30-0400 Respiratory rate 17 /min Dayan Nag [facility]apareddi [facility] 09-18-2021 05:30-0400 SaO2% (BldA) [Mass fraction] 100 % Dayan Nag [facility]apareddi [facility] 09-18-2021 05:30-0400 Systolic blood pressure 112 mm[Hg] Dayan Nag [facility]apareddi [facility] 09-14-2021 13:19-0400 Body temperature 98.1 [degF] Azael Hinds MD Work Phone: [facility] 09-14-2021 13:19-0400 Diastolic blood pressure 95 mm[Hg] Azael Hinds MD Work Phone: [facility] 09-14-2021 13:19-0400 Heart rate 50 /min Azael Hinds MD Work Phone: [facility] 09-14-2021 13:19-0400 Respiratory rate 16 /min Azael Hinds MD Work Phone: [facility] 09-14-2021 13:19-0400 Systolic blood pressure 135 mm[Hg] Azael Hinds MD Work Phone: [facility] 09-14-2021 08:51-0400 Body height 167.6 cm Azael Hinds MD Work Phone: [facility] 09-14-2021 08:51-0400 Body mass index (BMI) [Ratio] 23.5 kg/m2 Azael Hinds MD Work Phone: [facility] 09-14-2021 08:51-0400 Body weight 66 kg Azael Hinds MD Work Phone: [facility] 09-14-2021 08:51-0400 SaO2% (BldA) [Mass fraction] 100 % Azael Hinds MD Work Phone: [facility] 05-03-2021 09:33-0500 Body height 170.18 cm Dayan Nag S Mallapareddi Work Phone: [facility] Work Phone: 05-03-2021 09:33-0500 Body mass index (BMI) [Ratio] 21.99 kg/m2 Dayan Nag S Mallapareddi Work Phone: [facility] Work Phone: 05-03-2021 09:33-0500 Body surface area Derived from formula 1.74 m2 Dayan Nag S Mallapareddi Work Phone: [facility] Work Phone: 05-03-2021 09:33-0500 Body weight 63.67 kg Dayan Nag S Mallapareddi Work Phone: [facility] Work Phone: 05-03-2021 09:33-0500 Diastolic blood pressure 82 mm[Hg] Dayan Nag S Mallapareddi Work Phone: [facility] Work Phone: 05-03-2021 09:33-0500 Heart rate 96 /min Dayan Nag S Mallapareddi Work Phone: [facility] Work Phone: 05-03-2021 09:33-0500 Systolic blood pressure 112 mm[Hg] Dayan Nag S Mallapareddi Work Phone: [facility] Work Phone: 05-02-2021 19:27-0500 Body height 167.6 cm Summer Milner [employer] Work Phone: [facility] 05-02-2021 19:27-0500 Body mass index (BMI) [Ratio] 23.4 kg/m2 Summer Milner [employer]ERSON [employer] Work Phone: [facility] 05-02-2021 19:27-0500 Body temperature 97.2 [degF] Summer Milner [employer]ESPERSON [employer] Work Phone: [facility] 05-02-2021 19:27-0500 Body weight 65.77 kg Summerliya Milner [employer]ESPERSON [employer] Work Phone: [facility] 05-02-2021 19:27-0500 Diastolic blood pressure 87 mm[Hg] Summer Conn [employer]ESPERSON [employer] Work Phone: [facility] 05-02-2021 19:27-0500 Heart rate 87 /min Summerliya Milner [employer]ESPERSON [employer] Work Phone: [facility] 05-02-2021 19:27-0500 Respiratory rate 16 /min Summerliya Milner [employer]ESPERSON [employer] Work Phone: [facility] 05-02-2021 19:27-0500 SaO2% (BldA) [Mass fraction] 100 % Summer Milner [employer]ESPERSON [employer] Work Phone: [facility] 05-02-2021 19:27-0500 Systolic blood pressure 133 mm[Hg] Summer Milner [employer]ESPERSON [employer] Work Phone: [facility] Encounters Encounter Date Encounter Type Care Provider Facility Start: 12-28-2024 End: 12-28-2024 ambulatory JEN BOWLING Facility:[facility] Start: 12-14-2024 End: 12-14-2024 ambulatory OTONIEL DEL VALLE Facility:[facility] Start: 12-11-2024 End: 12-11-[facility] Start: 12-08-2024 End: 12-08-2024 ambulatory UNIQUE MEJIA Facility:[facility] Start: 12-06-2024 End: 12-07-2024 ambulatory No Primary Care Physician Facility:[facility] Start: 12-06-2024 End: 12-07-[address] Lisa Chapman DO [facility] Work Phone: Start: 12-02-2024 End: 12-02-2024 ambulatory SANJUANITA RODARTE Facility:[facility] Start: 11-25-2024 ambulatory SANJUANITA RODARTE Faci lity:[facility] Start: 11-24-2024 End: 11-24-2024 ambulatory LINDA CARMONA Facility:[facility] Start: 11-17-2024 End: 11-17-2024 [facility] Start: 10-13-2024 End: 10-13-2024 Patient encounter procedure Whi [employer] 1 [employer] [facility] Comment on above: screening for malformation using ultrasonics (HCC) (Primary Dx); Multigravida of advanced maternal age in second trimester (HCC); 19 weeks gestation of (HCC) History of pre-eclam psia (Primary Dx); History of melanoma; 19 weeks gestation of ([facility]) Encounter for superv ision of high risk in second trimester, antepartum (HCC) (Primary Dx); 19 weeks gestation of (HCC); Advanced maternal age in multigravida, second trimester (HCC) Start: 10-13-2024 End: 10-13-2024 ambulatory UNIQUE MEJIA Facility:[facility] Start: 10-05-2024 End: 10-05-2024 Telephone encounter Ramya [...] on above: 15 weeks gestation o f ([facility]) (Primary Dx); CHERI (generalized anxiety disorder); Multigravida of advanced maternal age in second trimester ([facility]); Encounter for supervision of high risk in second trimester, antepartum ([facility]); Constipation during in second trimester ([facility]) Start: 09-14-2024 End: 09-14-2024 [facility] Start: 09-10-2024 End: 09-10-2024 Emergency department patient visit BENY MENDOZA [facility] Start: 08-26-2024 End: 08-26-2024 ambulatory JEN BOWLING Facility:[facility] Start: 08-26-2024 End: 08-26-2024 Patient encounter procedure Jen Bowling TEMPLATE REPRODUCTION TECHNICIAN.CNMihaela Work Phone: OB/Gynecology Comment on above: 12 weeks gestation o f ([facility]) (Primary Dx); History of delivery; History of pre-eclampsia; Nausea/vomiting in ([facility]) Encounter for antena trista screening for malformation using ultrasound ([facility]) (Primary Dx); 12 weeks gestation of ([facility]); Multigravida of advanced maternal age in first trimester ([facility]) Start: 08-19-2024 End: 08-19-2024 ambulatory [facility] Facility:[facility] Start: 08-17-2024 End: 10-17-2024 Follow-up encounter Jen Bowling APRN.CNM Work Phone: OB/Gynecology Start: 08-10-2024 End: 08-10-2024 [facility] Start: 08-06-2024 End: 08-06-2024 Telephone encounter Nurse Steel Post Installer Jerrica Lopez Work Phone: Obstetrics/Gynecology Comment on above: PRAF Start: 08-05-2024 ambulatory DMITRY GUTIÉRREZ Facility :[facility] Start: 08-05-2024 End: 08-05-2024 Subsequent hospital visit by physician [facility] W[facility] Mob 2 Work Phone: Radiology Comment on above: Malignant melanoma o f torso excluding breast (HCC) [C43.59] Start: 08-04-2024 End: 08-04-2024 Patient encounter procedure Jen Bowling APRN.CNM Work [...] (HCC) Start: 08-04-2024 End: 08-04-2024 [facility] Start: 08-03-2024 End: 08-03-2024 E-mail encounter from [...] minutes Sanjuanita Rodarte MD Work Phone: [facility] Comment on above: Malignant melanoma o f torso excluding breast (HCC) (Primary Dx) Start: 07-28-2024 End: 07-28-2024 ambulatory SANJUANITA RODARTE Facility:[facility] Start: 07-16-2024 End: 07-16-2024 ambulatory ARIN TAYLOR Facility:[facility] Start: 06-01-2024 End: 06-05-2024 ambulatory Valeria Werner MD Work Phone: Hematology/Oncology Comment on above: pathology re-review Start: 06-01-2024 End: 06-05-2024 E-mail encounter from caregiver Valeria Werner MD Work Phone: Hematology/Oncology Start: 06-01-2024 End: 08-01-2024 Follow-up encounter Valeria Werner MD Work Phone: Hematology/Oncology Start: 05-28-2024 End: 05-28-2024 ambulatory Dmitry Gutiérrez [facility] Work Phone: [facility] Comment on above: Family history of me lanoma (Primary Dx); Malignant melanoma of skin (HCC); Family history of breast cancer Start: 05-28-2024 End: 05-28-2024 Telemedicine consultation with patient Dmitry Gutiérrez [facility] Work Phone: [facility] Start: 05-13-2024 End: 07-13-2024 Follow-up encounter Sanjuanita Rodarte MD Work Phone: [facility] Start: 05-13-2024 End: 05-13-2024 ambulatory SANJUANITA RODARTE Facility:[facility] Start: 05-13-2024 End: 05-13-2024 Subsequent hospital visit by physician Us Walter A21 5 Work Phone: Radiology Start: 05-01-2024 End: 05-01-2024 ambulatory VALERIA WERNER Facility:[facility] Start: 05-01-2024 End: 05-01-2024 Follow-up encounter Valeria [...] End: 04-23-2024 Patient encounter status Lisa Carney APRN.S[employer]ERSON [employer] Work Phone: [facility] Start: 04-23-2024 End: 04-23-2024 ambulatory LISA CARNEY Facility:[facility] Start: 04-23-2024 End: 04-23-2024 ambulatory SANJUANITA RODARTE Facility:[facility] Start: 04-23-2024 End: 04-23-2024 Subsequent hospital visit by physician Dilcia [facility] Wstr (I-Stat) Work Phone: Cat Scan Comment on above: Malignant melanoma o f torso excluding breast (HCC) [C43.59] Start: 04-17-2024 End: 04-17-2024 Orders Only Sanjuanita Rodarte MD Work Phone: [facility] Start: 04-16-2024 End: 04-16-2024 Orders Only Sanjuanita Rodarte MD Work Phone: [facility] Comment on above: Malignant melanoma o f torso excluding breast (HCC) (Primary Dx) Start: 04-14-2024 End: 04-14-2024 Postop follow up visit related to original px Sanjuanita Rodarte MD Work Phone: [facility] DEPARTMENT Comment on above: Malignant melanoma o f torso excluding breast (HCC) (Primary Dx) Start: 04-14-2024 End: 04-14-2024 ambulatory SANJUANITA RODARTE Facility:[facility] Start: 04-09-2024 End: 04-09-2024 Orders Only Sanjuanita Rodarte MD Work Phone: [facility] DEPARTMENT Comment on above: Malignant melanoma o f torso excluding breast (HCC) (Primary Dx) Start: 03-26-2024 End: 03-26-2024 Office outpatient new 60 minutes Sanjuanita Rodarte MD Work Phone: [facility] DEPARTMENT Comment on above: Malignant melanoma o f torso excluding breast (HCC) (Primary Dx) Start: 03-26-2024 End: 03-26-2024 Orders Only Sanjuanita Rodarte MD Work Phone: [facility] DEPARTMENT Comment on above: Malignant melanoma o f back (HCC) (Primary Dx) Start: 12-04-2023 End: 12-04-2023 Refill Lisa Rommel PAREDES Work Phone: OB/Gynecology Comment on above: Refill Request Start: 09-20-2023 End: 09-20-2023 Office outpatient new 30 minutes Shila Herrera MD Work Phone: [facility] Comment on above: Internal hemorrhoids (Primary Dx) Start: 09-09-2023 End: 09-09-2023 Emergency department patient visit DAYAN Wells [facility] Work Phone: Comment on above: Kidney stone on righ t side (Primary Dx) Start: 04-18-2023 End: 04-18-2023 Patient encounter procedure Lisa Carney [employer] Work Phone: OB/Gynecology Comment on above: Encounter for gyneco logical examination (general) (routine) without abnormal findings (Primary Dx); Screening for cervical cancer; Encounter for screening for human papillomavirus (HPV); Screening for STDs (sexually transmitted diseases) Start: 04-18-2023 End: 04-18-2023 Patient encounter status Lisa Carney [employer] Work Phone: [facility] Start: 03-17-2022 End: 03-18-2022 Emergency department patient visit [facility] Start: 11-29-2021 End: 11-29-2021 Emergency department patient visit Issa Gomez [facility] Emergency 04 Start: 09-28-2021 ambulatory DAYAN MCELROY [facility] SANDROREDANTONIO Facility:[id number] Start: 09-18-2021 [facility][id number] Start: 09-18-2021 Patient encounter procedure Dayan Galindo Work Phone: [id number] Work Phone: Start: 09-18-2021 End: 09-18-2021 Emergency department patient visit Joseph Gallegos [facility] Emergency 11 Start: 09-14-2021 End: 09-14-2021 ambulatory [facility]:[id number] Start: 09-14-2021 End: 09-14-2021 Subsequent hospital visit by physician Azael Hinds MD Work Phone: [facility] Comment on above: Hydronephrosis with renal and ureteral calculous obstruction (Primary Dx); Contact with and (suspected) exposure to covid-19; Nicotine dependence, unspecified, uncomplicated; Calculus of ureter; Right lower quadrant pain Start: 05-17-2021 ambulatory DAYAN MCELROY [facility] MALLAPAREDDI Facility:[id number] Start: 05-17-2021 EPV, Provider: Dayan Galindo, Status: Pen, Time: 10:00 AM Dayan Wells Mallapareddi Work Phone: [facility] Work Phone: Start: 05-15-2021 Chart Update Dayan Blakereddi Work Phone: [facility] Work Phone: Start: 05-08-2021 AUDIT Dayan Wells Mallapareddi Work Phone: [facility] Work Phone: Start: 05-06-2021 ambulatory Dayan Lilibeth [facility] Mallapareddi Facility:[id number] Start: 05-03-2021 ambulatory Dayan Mcelroy [facility] Mallapareddi Facility:9863 Start: 05-03-2021 Office outpatient vi sit 25 minutes Dayan Wells Mallapareddi Work Phone: [facility] Work Phone: Start: 05-03-2021 Patient encounter procedure Dayan Blakereddi Work Phone: [facility] Work Phone: Start: 05-02-2021 End: 05-02-2021 Office outpatient new 20 minutes Summer Milner CNP Work Phone: [facility] Urgent [facility] Comment on above: Rash and nonspecific skin eruption (Primary Dx); Cigarette smoker Start: 05-02-2021 End: 05-02-2021 ambulatory DAYAN [facility] Start: 04-18-2021 Office outpatient vi sit 15 minutes Michelle Mckee [facility] Work Phone: Start: 04-18-2021 ambulatory DAYANMARIBELL MCELROY [facility] MALLAPAREDDI Facility:[id number] Start: 02-10-2017 End: 02-10-2017 Emergency department patient visit Rhys Drake Facility:[facility] Start: 05-19-2015 End: 05-10-2017 Patient requested procedure Lisa Carney APRN.[employer] Work Phone: [facility] Procedures Date Procedure Procedure Detail Performing Clinician [...] after 1st trimest / gestation Jen Bowling TEMPLATE REPRODUCTION TECHNICIAN.CNM Work Phone: Start: 08-26-2024 Us preg uterus after 1st trimest / gestation Jen Bowling TEMPLATE REPRODUCTION TECHNICIAN.CNM Work Phone: Start: 08-19-2024 Antibody screen DMITRY GUTIÉRREZ Comment on above: Order Comment: Speci men Type: BLOOD SPECIMEN Ordering Facility: [facility] Address: [address] [place] [address] Performed By: #### 7 [id number], [id number], [id number] #### [facility] CLIA [id number] [address] [place] [address] [place] Start: 08-05-2024 Us lmtd joint/oth no nvasc xtr strux r-t w/img Sanjuanita Rodarte MD Work Phone: Start: 08-04-2024 Iadna chlamydia trac homatis amplified probe tq Jen Bowling TEMPLATE REPRODUCTION TECHNICIAN.KARMENM Work Phone: Start: 08-04-2024 Us uterus l imited 1/> fetuses Jen Bowling TEMPLATE REPRODUCTION TECHNICIAN.KARMENM Work Phone: Start: 05-13-2024 Us soft tissue [...] abdomen & pelvis w/contrast material Selam Marcelo TEMPLATE REPRODUCTION TECHNICIAN-[employer] Work Phone: Start: 09-09-2023 Urinalysis complete W Reflex Culture panel - Urine Selam Marcelo TEMPLATE REPRODUCTION TECHNICIAN-[employer] Work Phone: Start: 09-09-2023 Urine test visual color cmprsn meths Selam Marcelo TEMPLATE REPRODUCTION TECHNICIAN-[employer] Work Phone: Start: 09-09-2023 Urnls dip stick/tabl et reagent auto microscopy Selam Robbinsderquirino TEMPLATE REPRODUCTION TECHNICIAN-[employer] Work Phone: Start: 09-09-2023 Comprehensive metabo lic panel Selam Marcelo TEMPLATE REPRODUCTION TECHNICIAN-[employer] Work Phone: Start: 04-18-2023 Iadna chlamydia trac homatis amplified probe tq Lisa [place] TEMPLATE REPRODUCTION TECHNICIAN.[employer] Work Phone: Start: 04-18-2023 Microscopic observat ion [...] ( test) [Presence] in Urine Ahmet Bonilla [employer] Work Phone: Start: 09-14-2021 Urinalysis complete W Reflex Culture panel - Urine Ahmet Bonilla [employer] Work Phone: Start: 09-14-2021 Urinalysis microscop ic panel - Urine Qualitative by Automated Ahmet Bonilla [employer] Work Phone: Start: 09-14-2021 Blood count complete auto&auto difrntl wbc Ahmet Bonilla [employer] Work Phone: Start: 09-14-2021 Comprehensive metabo lic 2000 panel - Serum or Plasma Ahmet Bonilla [employer] Work Phone: Start: 09-14-2021 Lactate [Moles/volum e] in Serum or Plasma Ahmet Bonilla [employer] Work Phone: No history of surgery Michelle Mckee Plan of Treatment Date Care Activity Detail Author Start: 01-26-2036 Zoster Vaccines (1 o f 2) Zoster Vaccines (1 of 2) [facility] Start: 04-18-2028 Screening for malign ant neoplasm of cervix [facility] Start: 04-18-2026 Screening for malign ant neoplasm of cervix [facility] Start: 10-10-2025 DTaP/Tdap/Td Vaccine s (2 - Td or Tdap) DTaP/Tdap/Td Vaccines (2 - Td or Tdap) [facility] Start: 10-10-2025 Tetanus vaccination Tetanus: Every [address] [facility] Start: 10-10-2025 Urine microalbumin profile DTaP,Tdap,Td Vaccine (2 - Td or Tdap) [facility] Start: 04-26-2025 End: 04-26-2025 Patient encounter procedure 04/26/2025 4:00 PM EST Office Visit OB/Gynecology [address] [place] [address] Lisa Carney APRN.[employer] [address] [place], [place] [id number] Annual OB/Gynecology Comment on above: Annual Start: 01-10-2025 RSV Vaccine (1 - Ris k 1-dose series) RSV Vaccine (1 - Risk 1-dose series) [facility] Start: 12-07-2024 Patient [facility] Start: 12-06-2024 Nonstress test [facility] Start: 12-06-2024 Obstetric monitoring [facility] Start: 12-06-2024 Vital signs measurements [facility] Start: 12-06-2024 [facility] Start: 11-24-2024 End: 11-24-2024 Admission to same day surgery center 11/24/2024 3:45 PM EDT [facility] SURGERY DEPARTMENT [address] [facility] 3rd Floor [place] [id number] Sanjuanita Rodarte MD [address] [place] [phone] Fu Ultrasound 11/10(LEFT MESSAGE TO R/S 08/24) [facility] SURGERY DEPARTMENT Comment on above: Fu Ultrasound 11/10( LEFT MESSAGE TO R/S 08/24) Start: 11-17-2024 End: 11-17-2024 Admission to same day surgery center [facility] SURGERY DEPARTMENT Comment on above: Fu Ultrasound 11/10 Fu Ultrasound 11/10( LEFT MESSAGE TO R/S 08/24) Start: 11-10-2024 End: 11-10-2024 Patient encounter procedure Radiology Comment on above: Malignant melanoma o f torso excluding breast (HCC) [C43.59] OB Start: 10-26-2024 Influenza vaccination C [facility] Start: 10-13-2024 End: 10-13-2024 Patient encounter procedure [facility] Comment on above: Anatomy Consult to MFM Anatomy/MFM/OB Start: 09-14-2024 End: 09-14-2024 Patient encounter procedure 09/14/2024 9:15 AM EDT Routine Office Visit OB/Gynecology [address] [place] [address] Jen Bowling APRN.CN [address] [place] [address] OB OB/Gynecology Comment on above: OB Start: 09-03-2024 End: 08-03-2025 OBSTETRIC ULTRASOUND WHI OBSTETRIC ULTRASOUND WHI Anc Imaging Routine Encounter for supervision of high risk in first trimester, antepartum (HCC) Expected: 09/03/2024, Expires: 08/03/2025 [facility] Comment on above: Expected: 09/03/2024 , Expires: 08/03/2025 Start: 09-03-2024 End: 09-03-2024 Patient encounter procedure 09/03/2024 10:20 AM EDT Routine Office Visit OB/Gynecology [address] [place], [place] [id number] Abad Strong MD [address] [place], [place] [address] Initial OB - LMP 05/23 OB/Gynecology Comment on above: Initial OB - LMP 04/26 9 Start: 08-26-2024 End: 08-26-2024 Patient encounter procedure Maternal Medicine Comment on above: Nuchal OB Start: 08-18-2024 End: 11-17-2024 ANEMIA REFLEX PANEL ANEMIA REFLEX PANEL Lab Routine Encounter for supervision of high risk in first trimester, antepartum (HCC) Expected: 08/18/2024, Expires: 11/17/2024 [facility] Work Phone: Comment on above: Expected: 08/18/2024 , Expires: 11/17/2024 Start: 08-18-2024 End: 11-17-2024 Hemoglobin A1c in Blood HEMOGLOBIN A1C Lab Routine Encounter for supervision of high risk in first trimester, antepartum (HCC) Expected: 08/18/2024, Expires: 11/17/2024 [facility] Comment on above: Expected: 08/18/2024 , Expires: 11/17/2024 Start: 08-18-2024 End: 11-17-2024 Hepatitis B virus surface Ag [Presence] in Serum HEPATITIS B SURFACE ANTIGEN Lab Routine Encounter for supervision of high risk in first trimester, antepartum (HCC) Expected: 08/18/2024, Expires: 11/17/2024 [facility] Comment on above: Expected: 08/18/2024 , Expires: 11/17/2024 Start: 08-18-2024 End: 11-17-2024 Hepatitis C virus Ab [Presence] in Serum HEPATITIS C ANTIBODY IA WITH CONFIRMATION Lab Routine Encounter for supervision of high risk in first trimester, antepartum (HCC) Expected: 08/18/2024, Expires: 11/17/2024 [facility] Comment on above: Expected: 08/18/2024 , Expires: 11/17/2024 Start: 08-18-2024 End: 11-17-2024 HIV 1+2 Ab [Presence] in Serum or Plasma by Immunoassay HIV 1/2 COMBO WITH REFLEX TO DIFFERENTIATION Lab Routine Encounter for supervision of high risk in first trimester, antepartum (HCC) Expected: 08/18/2024, Expires: 11/17/2024 [facility] Comment on above: Expected: 08/18/2024 , Expires: 11/17/2024 Start: 08-18-2024 End: 08-03-2025 OBSTETRIC ULTRASOUND WHI OBSTETRIC ULTRASOUND WHI Anc Imaging Routine Encounter for supervision of high risk in first trimester, antepartum (HCC) Expected: 08/18/2024, Expires: 08/03/2025 [facility] Comment on above: Expected: 08/18/2024 , Expires: 08/03/2025 Start: 08-18-2024 End: 11-17-2024 RUBELLA IGG ANTIBODY RUBELLA IGG ANTIBODY Lab Routine Encounter for supervision of high risk in first trimester, antepartum (HCC) Expected: 08/18/2024, Expires: 11/17/2024 [facility] Comment on above: Expected: 08/18/2024 , Expires: 11/17/2024 Start: 08-18-2024 End: 11-17-2024 SYPHILIS TREPONEMAL W/REFLEX SYPHILIS TREPONEMAL W/REFLEX Lab Routine Encounter for supervision of high risk in first trimester, antepartum (HCC) Expected: 08/18/2024, Expires: 11/17/2024 [facility] Comment on above: Expected: 08/18/2024 , Expires: 11/17/2024 Start: 08-18-2024 End: 11-17-2024 TYPE + SCREEN TYPE + SCREEN Blood Bank Routine Encounter for supervision of high risk in first trimester, antepartum (HCC) Expected: 08/18/2024, Expires: 11/17/2024 [facility] Comment on above: Expected: 08/18/2024 , Expires: 11/17/2024 Start: 08-05-2024 End: 08-05-2024 Patient encounter procedure 08/05/2024 10:45 AM EDT Appointment Radiology [address] [place] [address] tried to leave vm about canceling diagnostic [...] [Presence] in Blood or Tissue by Cytogenetics [id number] PLUS Lab Routine Encounter for supervision of high risk in first trimester, antepartum (HCC) 9 weeks gestation of (HCC) Multigravida of advanced maternal age in first trimester ([facility]) History of pre-eclampsia History of melanoma History of delivery Expected: 08/04/2024, Expires: 11/03/2024 [facility] Comment on above: Expected: 08/04/2024 , Expires: 11/03/2024 Start: 08-04-2024 End: 08-04-2024 Patient encounter procedure OB/Gynecology Comment on above: Initial OB - LMP 04/26 9 Encounter for superv ision of normal in multigravida (HCC) (Primary Dx); with uncertain dates in first trimester (HCC) Start: 07-31-2024 End: 07-31-2024 ambulatory 07/31/2024 3:30 PM EDT [facility] Hematology/Oncology [address] [place] [address] [place] [address] [place] [address] vv per pt req Hematology/Oncology Comment on above: vv per pt req Start: 07-29-2024 End: 07-29-2024 ambulatory 07/29/2024 1:30 PM EDT [facility] Hematology/Oncology [address] [place] [address] Valeria Werner MD [address] [place] [address] vv per pt req Hematology/Oncology Comment on [...] procedure 07/28/2024 11:00 AM EDT Office Visit [facility] GENERAL SURGERY DEPARTMENT [address] [place] [address] [address] [place] [address] Sanjuanita Rodarte MD [address] [place] [address] 3 month FU melanoma and US 07/14 [facility] SURGERY DEPARTMENT Comment on above: 3 month FU melanoma and US 07/14 Start: 07-24-2024 End: 07-24-2024 Patient encounter procedure Cat Scan Comment on above: Malignant melanoma o f skin (HCC) [C43.9] Start: 07-16-2024 End: 07-16-2024 Patient encounter procedure 07/16/2024 10:45 AM EDT Office Visit OB/Gynecology [address] [place] [address] Arin Taylor, KAMLA.[employer] [address] [place] [address] Confrim a test. OB/Gynecology Comment on above: Confrim a test. Start: 07-14-2024 End: 07-14-2024 Patient encounter procedure 07/14/2024 4:00 PM EDT Appointment Radiology [address] [place] [address] Dx: 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) [C43.59] Radiology Comment on above: Dx: Malignant melano ma of torso excluding breast (HCC) [C43.59] Start: 07-12-2024 End: 05-14-2025 US Axilla - left US AXILLA ONLY LEFT Radiology Routine 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) Expected: 07/12/2024 (Approximate), Expires: 05/14/2025 [facility] Work Phone: Comment on above: Expected: 07/12/2024 (Approximate), Expires: 05/14/2025 Start: 06-16-2024 End: 06-16-2024 Patient encounter procedure 06/16/2024 4:00 PM EDT Office Visit OB/Gynecology [address] [place] [address] Linda Colon MD [address] [place] [address] IUD insert OB/Gynecology Comment on above: IUD insert Start: 06-01-2024 End: 06-01-2024 Patient encounter procedure 06/01/2024 4:00 PM EDT Office Visit OB/Gynecology [address] [place] [address] Arin Taylor APRN.[employer] [address] [place] [address] IUD insert OB/Gynecology Comment on above: IUD insert Start: 05-28-2024 End: 05-28-2024 ambulatory 05/28/2024 3:00 PM EDT [facility] [address] [place] [address] Dmitry Gutiérrez LGC [address] [place] [address] Malignant melanoma of skin (HCC) [C43.9] [facility] Comment on above: Malignant melanoma o f skin (HCC) [C43.9] Start: 05-15-2024 End: 05-15-2024 Patient encounter procedure 05/15/2024 10:00 AM EDT Office Visit OB/Gynecology [address] [place] [address] Lisa Carney, TEMPLATE REPRODUCTION TECHNICIAN.[employer] [address] [place] [address] IUD insert OB/Gynecology Comment on above: IUD insert Start: 05-07-2024 End: 05-07-2024 Patient encounter procedure 05/07/2024 9:15 AM EDT Appointment Radiology [address] [address] 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) [C43.59] Radiology Comment on above: Malignant melanoma o f torso excluding breast (HCC) [C43.59] Start: 05-01-2024 End: 05-01-2024 ambulatory 05/01/2024 9:00 AM EST Visit (SP) Office Hematology/Oncology [address] [place] [address] Valeria Werner MD [address] [place] [address] Metastatic Melanoma Hematology/Oncology Comment on above: Metastatic Melanoma Start: 04-23-2024 End: 04-23-2024 Patient encounter procedure 04/23/2024 3:30 PM EST Office Visit OB/Gynecology [address] [place] [address] Lisa Carney, TEMPLATE REPRODUCTION TECHNICIAN.[employer] [address] [place] [address] Annual OB/Gynecology Comment on above: Annual Start: 04-23-2024 End: 04-23-2024 Patient encounter procedure Cat Scan Comment on above: Malignant melanoma o f torso excluding breast (HCC) [C43.59] Start: 04-14-2024 End: 04-14-2024 Patient encounter procedure 04/14/2024 10:00 AM EST Office Visit [facility] SURGERY DEPARTMENT [address] [facility] 3[address] Floor [place] [phone] Sanjuanita Rodarte MD [address] [place] [phone] s/p wle melanoma [facility] DEPARTMENT Comment on above: s/p wle melanoma Start: 04-09-2024 End: 07-09-2024 CREATININE BLD CREATININE BLD Lab Routine 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) Expected: 04/09/2024, Expires: 07/09/2024 [facility] Comment on above: Expected: 04/09/2024 , Expires: 07/09/2024 Start: 04-03-2024 End: 04-03-2024 Admission to same day surgery center 04/03/2024 12:30 PM EST - 04/03/2024 2:15 PM EST [facility] [address] [place] [address] Sanjuanita Rodarte MD [address] [place] [phone] WIDE LOCAL EXCISION OF BACK MELAN[place] [...] EST Hospital Encounter [facility] [address] [place] [address] Sanjuanita Rodarte MD [address] [place] [phone] Malignant melanoma of back (HCC) [C43.59] [facility] Comment on above: Malignant melanoma o f back (HCC) [C43.59] Start: 10-27-2023 Covid-19 Vaccine ( season) Covid-19 Vaccine ( season) [facility] Start: 10-27-2023 Influenza vaccination Influenza Vacc ine (#1) [facility] Start: 05-17-2023 Screening for malign ant neoplasm of cervix [facility] Start: 04-18-2023 End: 07-18-2023 Hepatitis C virus Ab [Presence] in Serum [facility] Work Phone: Comment on above: Expected: 04/18/2023 , Expires: 07/18/2023 Start: 02-25-2023 Depression Assessment Depression Ass essment [facility] Start: 10-26-2022 COVID-19 Vaccine ( season) COVID-19 Vaccine ( season) [facility] Start: 10-26-2022 Influenza vaccination Influenza Vacc ine (#1) [facility] Start: 12-05-2021 Patient encounter procedure [facility] [place] Start: 10-06-2021 FUV, Provider: Azael Hinds II, Status: Pen, Time: 11:15 AM FUV, Provider: Azael Hinds II, Status: Pen, Time: 11:15 AM [facility] Work Phone: Start: 08-24-2021 Influenza vaccination Sequenti al Influenza Vaccine (#1) [facility] Comment on above: Postponed from 10/26 (Treatment Not Available) Start: 05-17-2021 EPV, Provider: Dayan Galindo, Status: Pen, Time: 10:00 AM EPV, Provider: Dayan Galindo, Status: Pen, Time: 10:00 AM [facility] Work Phone: Start: 05-17-2019 History and physical examination, annual for health maintenance Wellness Visit [facility] Start: 02-05-2017 Hepatitis B Vaccine (2 of 3 - 19+ 3-dose series) Hepatitis B Vaccine (2 of 3 - 19+ 3-dose series) [facility] Start: 02-05-2017 Hepatitis B Vaccines (2 of 3 - 19+ 3-dose series) Hepatitis B Vaccines (2 of 3 - 19+ 3-dose series) [facility] Start: 02-05-2017 MMR Vaccines (1 of 1 - Standard series) MMR Vaccines (1 of 1 - Standard series) [facility] Start: 02-05-2017 Varicella vaccination Varicell a Vaccines (2 of 2 - 13+ 2-dose series) [facility] Start: 2013 HPV Vaccine (1 - 3-d ose SCDM series) HPV Vaccine (1 - 3-dose SCDM series) [facility] Start: 01-26-2008 DTaP/Tdap/Td Vaccine s (1 - Tdap) DTaP/Tdap/Td Vaccines (1 - Tdap) [facility] Start: 2007 Screening for malign ant neoplasm of cervix [facility] Start: 2005 Pneumococcal vaccination Pneumococcal Vaccine (1 of 2 - PCV) [facility] Start: 01-26-2004 Anxiety Screening Anxiety Screening [facility] Start: 01-26-2004 Depression Screening Depression Scre ening [facility] Start: 01-26-2004 Hepatitis C screening Hepatitis C Sc reening [facility] Start: 2001 HIV screening HIV Screening [facility] Start: 1998 Depression screening using PHQ-9 (Patient Health Questionnaire 9) score [facility] Start: 01-26-1992 Pneumococcal Vaccine : Ped or At-Risk (1 of 2 - PCV) Pneumococcal Vaccine: Ped or At-Risk (1 of 2 - PCV) [facility] Start: 01-26-1992 Pneumococcal Vaccine : Ped or At-Risk (1 of 2 - PPSV23) Pneumococcal Vaccine: Ped or At-Risk (1 of 2 - PPSV23) [facility] Start: 01-26-1992 Pneumococcal Vaccine : Pediatrics (0 to 5 Years) and At-Risk Patients (6 to 64 Years) (1 of 2 - PCV) Pneumococcal Vaccine: Pediatrics (0 to 5 Years) and At-Risk Patients (6 to 64 Years) (1 of 2 - PCV) [facility] Start: 1991 COVID-19 Vaccine (1) COVID-19 Vaccin e (1) [facility] Start: 1989 History and physical examination, annual for health maintenance Wellness Visit [facility] Start: 1987 MMR Vaccines (1 of 1 - Standard series) MMR Vaccines (1 of 1 - Standard series) [facility] Start: 1987 Varicella vaccination Varicell a Vaccines (1 of 2 - 2-dose childhood series) [facility] Start: 1986 COVID-19 Vaccine (#1) COVID-19 Vacci ne (#1) [facility] Start: 1986 Hepatitis B Vaccines (1 of 3 - 3-dose series) Hepatitis B Vaccines (1 of 3 - 3-dose series) [facility] Start: 1986 HIV screening HIV Screening [facility] Start: 1986 Lipid panel Lipid Panel [facility] Start: 1986 Screening for malign ant neoplasm of cervix Pap Smear [facility] Start: 1986 Yearly Adult Physical Yearly Adult P hysical [facility] Bacteria identified in Urine by Culture BACTERIAL CULTURE, URINE Microbiology Routine Encounter for supervision of high risk in first trimester, antepartum (HCC) 08/04/2024 9:38 AM EDT [facility] Chlamydia trachomatis+Neisseria gonorrhoeae DNA [Presence] in Unspecified specimen by YAS with probe detection GONORRHEA/CHLAMYDIA NAAT Lab Routine Screen for STD (sexually transmitted disease) 04/23/2024 4:21 PM EST [facility] End: 05-07-2025 CT Abdomen and Pelvis W contrast IV CT ABD/PEL W IVCON Radiology Routine 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) 1 Occurrences starting 04/09/2024 until 05/07/2025 [facility] Comment on above: 1 Occurrences starti ng 04/09/2024 until 05/07/2025 End: 05-31-2025 CT Abdomen and Pelvis W contrast IV CT ABD/PEL W IVCON Radiology Routine Malignant melanoma of skin (HCC) Encounter for follow-up surveillance of melanoma 1 Occurrences starting 05/01/2024 until 05/31/2025 [facility] Work Phone: Comment on above: 1 Occurrences starti ng 05/01/2024 until 05/31/2025 End: 05-07-2025 CT Chest W contrast IV CT CHEST W IVCON Radiology Routine 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) 1 Occurrences starting 04/09/2024 until 05/07/2025 [facility] Comment on above: 1 Occurrences starti ng 04/09/2024 until 05/07/2025 End: 05-31-2025 CT Chest W contrast IV CT CHEST W IVCON Radiology Routine Malignant melanoma of skin (HCC) Encounter for follow-up surveillance of melanoma 1 Occurrences starting 05/01/2024 until 05/31/2025 [facility] Comment on above: 1 Occurrences starti ng 05/01/2024 until 05/31/2025 End: 09-09-2023 Extra Urine Card Tube Extra Urine Card Tube Lab Timed Once for 1 Occurrences starting 09/09/2023 until 09/09/2023 [facility] Work Phone: Comment on above: Once for 1 Occurrenc es starting 09/09/2023 until 09/09/2023 Insertion intrauteri ne device iud INSERT INTRAUTERINE DEVICE Procedures Routine Encounter for insertion of intrauterine contraceptive device (IUD) Ordered: 04/23/2024 [facility] Work Phone: Comment on above: Ordered: 04/23/2024 End: 05-09-2025 MR Brain WO and W contrast IV MRI BRAIN WO/W IVCON Radiology Routine 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) 1 Occurrences starting 04/09/2024 until 05/09/2025 [facility] Work Phone: Comment on above: 1 Occurrences starti ng 04/09/2024 until 05/09/2025 End: 04-24-2025 NM Lymph node Views NM LYMPH NODE IMAGING Radiology Routine 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) 1 Occurrences starting 03/26/2024 until 04/24/2025 [facility] Work Phone: Comment on above: 1 Occurrences starti ng 03/26/2024 until 04/24/2025 [facility] HEREDIT DERRICK DIAGNOSTIC CANCER PANEL [facility] INV[facility]AE HEREDITARY DIAGNOSTIC CANCER PANEL Lab Routine Malignant melanoma of skin (HCC) Family history of melanoma Family history of breast cancer Ordered: 05/28/2024 [facility] Work Phone: Comment on above: Ordered: 05/28/2024 [facility] HEREDIT DERRICK DIAGNOSTIC CANCER PANEL [facility] INVITAE HEREDITARY DIAGNOSTIC CANCER PANEL Lab Routine Malignant melanoma of skin (HCC) Family history of breast cancer Family history of melanoma Ordered: 09/21/2024 [facility] Work Phone: Comment on above: Ordered: 09/21/2024 End: 05-01-2025 OBSTETRIC ULTRASOUND WHI OBSTETRIC ULTRASOUND WHI Anc Imaging Routine History of pre-eclampsia Once per month for 5 Occurrences starting 10/13/2024 until 05/01/2025 [facility] Work Phone: Comment on above: Once per month for 5 Occurrences starting 10/13/2024 until 05/01/2025 PAP TEST PAP TEST Lab Dianna thakur Encounter for gynecological examination (general) (routine) without abnormal findings Screening for cervical cancer Encounter for screening for human papillomavirus (HPV) 04/18/2023 4:18 PM [facility] Work Phone: Patient Education Kick Counts ED False Labor OB Triage: Return to Hospital or Notify Physician if you Experience: [facility] Work Phone: TRICHOMONAS VAGINALI S NAAT TRICHOMONAS VAGINALIS NAAT Lab Routine Screen for STD (sexually transmitted disease) 04/23/2024 4:21 PM [facility] End: 09-09-2023 Urinalysis complete W Reflex Culture panel - Urine [facility] Service Area Work Phone: Comment on above: STAT (Lab) for 1 Occ urrences starting 09/09/2023 until 09/09/2023 End: 08-27-2025 US Axilla - left US AXILLA ONLY LEFT Radiology Routine 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) 1 Occurrences starting 07/28/2024 until 08/27/2025 [facility] Work Phone: Comment on above: 1 Occurrences starti ng 07/28/2024 until 08/27/2025 End: 05-14-2025 US Axilla - right US AXILLA ONLY RIGHT Radiology Routine 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) 1 Occurrences starting 04/14/2024 until 05/14/2025 [facility] Comment on above: 1 Occurrences starti ng 04/14/2024 until 05/14/2025 End: 08-27-2025 US Axilla - right US AXILLA ONLY RIGHT Radiology Routine 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) 1 Occurrences starting 07/28/2024 until 08/27/2025 [facility] Comment on above: 1 Occurrences starti ng 07/28/2024 until 08/27/2025 End: 05-24-2025 US Head and neck soft tissue US HEAD/NECK SOFT TISSUE OTHER Radiology Routine 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) 1 Occurrences starting 04/24/2024 until 05/24/2025 [facility] Work Phone: Comment on above: 1 Occurrences starti ng 04/24/2024 until 05/24/2025 US NECK (POC) FOR ASCENCIO RG USE ONLY US NECK (POC) FOR SURG USE ONLY Imaging Diagnostic Routine Malignant melanoma of back (HCC) Ordered: 04/24/2024 [facility] Work Phone: Comment on above: Ordered: 04/24/2024 US NECK (POC) FOR ASCENCIO RG USE ONLY US NECK (POC) FOR SURG USE ONLY Imaging Diagnostic Routine 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) Ordered: 04/24/2024 [facility] Work Phone: Comment on above: [facility]: [facility] Immunization Date Immunization Notes Care Provider Sergei sadler 11-17-2019 Influenza, injectabl e, Madin [place] Canine Kidney, preservative free, quadrivalent Michelle Mckee -[facility] Work Phone: 11-17-2019 influenza virus vaccine, unspecified formulation Lisa Carney APRN.CNP Work Phone: [facility] 03-31-2018 Influenza, injectabl e, Madin Yaneli Canine Kidney, preservative free, quadrivalent Michelle Colby Mckee [facility] Work Phone: 01-08-2017 hepatitis B vaccine, adult dosage Michelle Bowman Rylee [facility] Work Phone: 01-08-2017 varicella virus vaccine Michelle D Gio bose [facility] Work Phone: 11-17-2015 influenza, injectabl e, quadrivalent, contains preservative Lisa [place] TEMPLATE REPRODUCTION TECHNICIAN.[facility] Work Phone: [facility] 10-27-2015 Influenza virus vaccine No P [facility] Phys[facility] 10-11-2015 tetanus toxoid, redu karley diphtheria toxoid, and acellular pertussis vaccine, adsorbed Michelle Mckee [facility] Payers Date Payer Category Payer Self-pay 2023 Medicaid [id number] 2023 Private Health Insurance [employer]NA [employer] MEDICAID [facility] [id number] 2023-Present [address] [address] [place] [address] Medicaid [id number] 2022 Unknown [id number] 2021 Unknown [id number] 2017 Unknown 2015 Medicaid [id number] 1985 Unknown [id number] [id number] 03 1986 Unknown [id number] [id number] 9 1986 Unknown [id number] 2.16.840.1.529702.3.579.2.1 9 1986 Unknown [id number] 2.16.840.1.597186.3.579.2.1 069 1986 Unknown [id number] 2.16.840.1.772944.3.579.2.1 069 1986 Unknown [id number] 2.16.840.1.109672.3.579.2.1 069 1986 Unknown [id number] 2.16.840.1.070888.3.579.2.3 56 1986 Unknown [id number] 2.16.840.1.412541.3.579.2.3 56 1986 Unknown [id number] 2.16.840.1.263668.3.579.2.3 56 1986 Unknown [id number] 2.16.840.1.322456.3.579.2.3 56 1986 Unknown [id number] 2.16.840.1.064114.3.579.2.3 56 1986 Unknown [id number] 2.16.840.1.271477.3.579.2.3 56 1986 Unknown [id number] 2.16.840.1.513503.3.579.2.9 03 1986 Unknown [id number] 2.16.840.1.634334.3.579.2.1 243 1986 Unknown [id number] [id number] 02 Unknown [id number] [id number] 62 Social History Date Type Detail Facility Start: 05-02-2021 End: 03-26-2024 No advance directives No advance directives [facility] Comment on above: social smoker on bryce sheppard; Start: 06-02-2009 End: 03-26-2024 Tobacco smoking status NHIS Smokes tobacco daily [facility] Start: 05-02-2021 End: 07-16-2024 Tobacco use and exposure Smokeless tobacco non-user [facility] Start: 05-02-2021 End: 09-09-2023 Alcohol intake Current drinker of alcohol (finding) [facility] Start: 05-02-2021 History SDOH Alcohol Comment occasional [facility] Start: 1985 Sex Assigned At Not on file [facility] Start: 04-22-2021 End: 09-09-2023 Exposure to SARS-CoV-2 (event) Not sure [facility] Tobacco smoking consumption unknown [facility] Start: 04-18-2023 End: 03-26-2024 Gender identity Not on file [facility] Work Phone: Start: 12-22-2015 End: 02-02-2016 Tobacco smoking status NHIS Ex-smoker [facility] Start: 06-02-2009 End: 06-03-2015 History of tobacco use Current smoker [facility] Start: 06-02-2009 End: 06-03-2015 History of tobacco use Cigarette Smoker [facility] Start: 04-18-2023 End: 08-04-2024 Alcohol intake Ex-drinker (finding) [facility] Start: 01-27-2012 National Score (1-100), lower number is lower risk 80 [facility] Start: 04-18-2023 Alcohol Comment [facility] Start: 05-02-2021 Gender identity Identifies as female gender (finding) [facility] Start: 06-14-2024 [facility] Start: 1985 Sex assigned at Female C [facility] Medical Equipment Procedure Code Equipment Code Equipment Origin al Text Equipment Identifier Dates [id number] Slimeline Ez 365 Laser Case [id number] Start: 09-14-2021 Comment on above: Description: Convert ed from [facility]. Please see archived information for full log information. Stent, Polaris Ultra 5fr 24cm, Disposable Case [id number] Start: 09-14-2021 Comment on above: Description: Convert ed from [facility]. Please see archived information for full log information. Goals Date Patient Goal Desired Activity /State Personal health goal Clinical Notes 05-27-2015 to 12-14-2024 Quick Notes - Abad Strong MD - 10/13/2024 11:02 AM EDTPrenatal Quick Notes - Abad Strong MD - 10/13/2024 11:02 AM EDTPatient InstructionsPatient Instructions<item> Note Date & Type Note Facility 12-14-2024 Note HNO ID: [id number] Author: ADRIANE RODRIGUEZ MA Service: ? Author Type: Welding Machine Operator Helper Gas Type: Progress Notes Filed: 12/14/2024 17:29 Note [...] severely ill: Yes Patient denies history of Guillain-Holgate Syndrome (a severe paralytic illness): Yes Tdap Adacel injection was given without incident. See immunizations for details of immunizations administered today. VIS sheet provided: Yes Provider Lisa Chapman DO was present in office at time of injection. Adriane Rodriguez MA [facility] 12-01-2024 Note HNO ID: [id number] Author: SANJUANITA RODARTE MD Service: ? Author Type: Physician Type: Progress Notes Filed: 12/08/2024 11:50 Note Text: Sanjuanita Rodarte MD Surgical Oncology [address] [facility], [place] [address] VIRTUAL VISIT PROGRESS NOTE This is a virtual visit using Audio Only Visit due to technical issues. It required patient-provider interaction for the medical decision making as documented below. I have communicated my name and active licensure. The patient's identity and physical location were verified at the time of this visit. Either the patient or their legal appliance service representative has been informed of the risks and benefits of -- and alternatives to -- treatment through a remote evaluation and consents to proceed with the evaluation remotely. Name: Adriane Card Age: [age] year old Sex: Adriane Card : 1985 Referring Provider: No ref. provider found Subjective CHIEF COMPLAINT: Melanoma surveillance ONCOLOGIC HISTORY: 03/03/24: Melanoma of upper back 04/03/24: WLE + SLNB, path: [id number] Anatomic Location: Upper back [place]low Depth: 1.5mm Ulceration: No Mitosis: 1/mm2 [place] Lymph Node Biopsy: Yes Number of positive [...] technological challenges. Sanjuanita Rodarte MD 12/01/2024 1559 [facility] 11-25-2024 Note HNO ID: [id number] Author: MAYRA ALMANZA RDMS Service: ? Author Type: Supervisor Volunteer Services Type: Progress Notes Filed: 11/26/2024 14:45 Note [...] PATIENT PRESENTS WITH AN IMPLANTABLE OR ATTACHED SHIFT SUPERINTENDENT CAUSTIC CRESYLATE: No RADIOLOGY DEPARTMENT: Ultrasound PERIPHERAL IV DATA: Not applicable SIGNED BY: Mayra Almanza RDMS RVT November 26, 2024 2:45 PM [facility] 10-13-2024 Progress note Formatting of t [...] 4 weeks or prn Abad Strong MD [facility] 10-13-2024 Miscellaneous Notes RR- VB No. LOF [...] Abad Strong MD documented in this encounter [facility] 10-13-2024 Instructions Lavern Gan LPN - 10/13/2024 10:53 AM EDT SEQUENTIAL SCREENINGS The [facility] offers sequential screenings for women who are [...] It will require an appointment with our lift team technician. This is not an ultrasound performed [...] the above symptoms, contact our office at [phone] and ask to speak with a nurse. After hours, you can call doctors registry at [phone] OR call [facility] at [phone] and ask to have the doctor examination scorer paged. If you consider this an emergency, dial [phone] or go to your nearest emergency department. NEED HELP? Are you dealing with a violent or abusive relationship? Are you a victim of rape or sexual assult? Call [facility] ([place]) 24 hour Crisis Hotline: 780.794.6697 or 937-176-2949. MANUAL Your Guide to a Healthy manual is now on-line. Visit [email or web address] [email or web address] to download your free copy documented in this encounter [facility] 10-13-2024 Note HNO ID: [id number] Author: UNIQUE MEJIA MD Service: ? Author [...] SURGICAL HISTORY Procedure Laterality Date IUD INSERTION (GROCERY CLERK CHECKING DEPT)_*FL 01/29/2008 Mirena IUD REMOVAL (GROCERY CLERK CHECKING DEPT)_*FL 06/28/2008 Mirena KIDNEY STONE SURGERY HX [...] APRN.CNM 08/04/24- Currently involved with counselor at [facility]. Has upcoming appointment with psychiatrist for evaluation [...] (28-30 weeks): [] Consent [] Contraception [] Utility Bagger [] TeamBirth handout Third trimester (36-40 weeks): [] GBS [] Presentation - [] Sched (more content not included)... [facility] 10-13-2024 History of Present illness Narrative [...] SURGICAL HISTORY Procedure Laterality Date IUD INSERTION (GROCERY CLERK CHECKING DEPT)_*FL 01/29/2008 Mirena IUD REMOVAL (GROCERY CLERK CHECKING DEPT)_*FL 06/28/2008 Mirena KIDNEY STONE SURGERY HX [...] Resolved By Constipation during in second trimester ([facility]) 09/14/2024 Jen Bowling APRN.CNM No [...] APRN.CNM 08/04/24- Currently involved with counselor at [facility]. Has upcoming appointment with psychiatrist for [...] (28-30 weeks): [] Consent [] Contraception [] Utility Bagger [] TeamBirth handout Third trimester (36-40 weeks): [] GBS [] Presentation - [] Scheduled [] yes - Hibiclens, pre-op instructions, CBC, T&S ordered [] no [] H&P [] Preferences worksheet [] Scanned in EMR [] Patient to bring copy to hospital [] Declined Multigravida of advanced maternal age in first trimester ([facility]) 08/04/2024 Jen Bowling APRN.CNM No Overview Signed 08/04/2024 12:25 PM by Jen Bowling APRN.CNM 08/04/24- Patient will be age 40 at the time of delivery. Accepts NIPT screening after 10 weeks gestation. Jen Bowling APRN.CNM Heartburn during in first trimester ([facility]) 08/04/2024 eJn Bowling APRN.CNM No Overview Signed 08/04/2024 4:44 PM by Jen Bowling APRN.CNM Pepcid 20 mg PO -RX sent. 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 TKRN GERD (gastroesophageal reflux disease) 07/19/2009 Melodei Vizcarra No Encounter for supervision of normal in multigravida in first trimester ([facility]) 05/27/2015 Linda Grimes 05/10/2017 Lisa Carney APRN.SALESPERSON [employer]ARD GOODS Two previous miscarriages, affecting care of mother in second trimester, antepartum ([facility]) 05/19/2015 Jason Marquez RN 05/10/2017 Overview Signed 05/19/2015 11:10 AM by Jason Marquez (Rn) 05/19/2015 Pt has a history of 2 miscarriages. She denies any bleeding. Notes occasional mild cramping that she believes is round ligament pain. Pt to call/come in of she develops any bleeding, pain worsens or PRN problems. TKRN Tobacco smoking complicating in first trimester ([facility]) 05/19/2015 Jason Marquez RN 05/10/2017 [...] nose Diabetes Maternal Grandfather Heart Maternal Grandfather [place]- Assessment: 38 year old at 19 wks [...] Oncology, Vol 21, Issue 11 (July), 2002: 7696-3614 Metastatic Melanoma in : Risk of Transplacental [...] which included preparing to see the patient, [id number] patient care, completing clinical documentation, obtaining and/or [...] Drug use: Never documented in this encounter [facility] 10-05-2024 Telephone encounter Note Received call from [employer] regarding PA for genetic testing. Confirmed patient's [...] the denial could be appealed, denial number [id number]. Reason for denial was listed as no medical necessity. Informed Deisy that I would update the ordering provider. Esperanza Sanabria Genetic Counselor Manager Cosmetic [facility] 10-05-2024 Miscellaneous Notes Received call from [employer] regarding PA for genetic testing. Confirmed patient's [...] the denial could be appealed, denial number [id number]. Reason for denial was listed as no medical necessity. Informed Deisy that I would update the ordering provider. Esperanza Sanabria Genetic Counselor Manager Cosmetic documented in this encounter [facility] 09-21-2024 Telephone encounter Note Tried to call to explain the following: I periodically check to make sure my previous genetic test orders have gone through. When I checked for this patient, I could not find their order in [employer]'s portal. [employer] also could not find their order, and our Card[facility] team was unable to see what happened since our interface messages only go back 3 months. Therefore, Ramya Rinaldi placed a new order for testing and I sent a message to the patient via Smart Checkout to inform her of this technical error. Shortly after I sent the Smart Checkout message, Ramya found that the patient was showing up with multiple RQ numbers in [employer]'s portal and we came to the conclusion [...] testing or not. I will send a Smart Checkout message to follow up instead since she was unavailable and I was unable to leave a voicemail since her mailbox was full. Dmitry Gutiérrez [facility] Work Phone: 09-21-2024 Miscellaneous Notes Tried to call to explain the following: I periodically check to make sure my previous genetic test orders have gone through. When I checked for this patient, I could not find their order in [employer]'s portal. [employer] also could not find their order, and our Epic team was unable to see what happened since our interface messages only go back 3 months. Therefore, Ramya Franklyn placed a new order for testing and I sent a message to the patient via Smart Checkout to inform her of this technical error. Shortly after I sent the Smart Checkout message, Ramya found that the patient was showing up with multiple RQ numbers in [employer]'s portal and we came to the conclusion [...] testing or not. I will send a Smart Checkout message to follow up instead since she was unavailable and I was unable to leave a voicemail since her mailbox was full. Dmitry Gutiérrez documented in this encounter [facility] 09-21-2024 Note HNO ID: [id number] Author: RAMYA RINALDI MS Service: ? Author Type: Genetic Counselor Type: Progress Notes Filed: 09/21/2024 12:36 Note Text: After discussing with original ordering genetic counselor, Dmitry Gutiérrez MS, placing new genetic testing order for patient. Original order never got correctly integrated with [employer], so saliva sample never got sent. Ramya Rinaldi MS, [facility] Licensed, Certified Genetic Counselor [facility] 09-21-2024 History of Present illness Narrative After discussing with original ordering genetic counselor, Dmitry Gutiérrez MS, placing new genetic testing order for patient. Original order never got correctly integrated with [employer], so saliva sample never got sent. Ramya Rinaldi MS, [facility] Licensed, Certified Genetic Counselor documented in this encounter [facility] 09-14-2024 Progress note Formatting of t his [...] from [employer] in order to deliver at [facility] 4 weeks for anatomy US and MFM consult Jen Bowling APRN.CNM [facility] 09-14-2024 Miscellaneous Notes S: Adriane Card is [...] from [employer] in order to deliver at [facility] 4 weeks for anatomy US and MFM consult Jen Bowling APRN.CNM documented in this encounter [facility] 09-14-2024 Instructions Raffy Kate LPN - 09/14/2024 9:21 AM EDT SEQUENTIAL SCREENINGS The [facility] offers sequential screenings for women who are [...] It will require an appointment with our lift team technician. This is not an ultrasound performed [...] the above symptoms, contact our office at [phone] and ask to speak with a nurse. After hours, you can call doctors registry at [phone] OR call [facility] at [phone] and ask to have the doctor examination scorer paged. If you consider this an emergency, dial [phone] or go to your nearest emergency department. NEED HELP? Are you dealing with a violent or abusive relationship? Are you a victim of rape or sexual assult? Call [facility] ([facility] 24 hour Crisis Hotline: 541.284.5799 or 651-307-6152. MANUAL Your Guide to a Healthy manual is now on-line. Visit [email or web address] ncyGuide to download your free copy documented in this encounter [facility] 08-26-2024 Progress note Formatting of t his note might be different from the original. Anatomy ultrasound reviewed. No abnormalities identified. Follow up as clinically indicated. Please place copy in ob chart. Abad Strong MD [facility] Work Phone: 08-26-2024 Miscellaneous Notes Anatomy ultrasound reviewed. No abnormalities identified. Follow up as clinically indicated. Please place copy in ob chart. Abad Strong MD documented in this encounter [facility] 08-26-2024 Progress note Formatting of t his [...] - Insurance is [employer]- patient notified that [facility] does not take insurance and she will call and attempt to change plan - Continue vitamin and ASA - Labs completed - Start Zofran 4 mg PO PRN for nausea - RTO 4 weeks or sooner if needed Jen Bowling APRN.CNM [facility] 08-26-2024 Miscellaneous Notes S: Adriane Card is [...] - Insurance is [employer]- patient notified that [facility] does not take insurance and she will call and attempt to change plan - Continue vitamin and ASA - Labs completed - Start Zofran 4 mg PO PRN for nausea - RTO 4 weeks or sooner if needed Jen Bowling APRN.CNM documented in this encounter [facility] 08-26-2024 Instructions Lavern Gan LPN - 08/26/2024 9:59 AM EDT SEQUENTIAL SCREENINGS The [facility] offers sequential screenings for women who are [...] It will require an appointment with our lift team technician. This is not an ultrasound performed [...] the above symptoms, contact our office at [phone] and ask to speak with a nurse. After hours, you can call doctors registry at [phone] OR call [facility] at [phone] and ask to have the doctor examination scorer paged. If you consider this an emergency, dial [phone]- or go to your nearest emergency department. NEED HELP? Are you dealing with a violent or abusive relationship? Are you a victim of rape or sexual assult? Call [facility] ([place]) 24 hour Crisis Hotline: 718.866.2894 or 680-932-3142. MANUAL Your Guide to a Healthy manual is now on-line. Visit [email or web address] ncyGuide to download your free copy documented in this encounter [facility] 08-06-2024 Telephone encounter Note 1st risk assessment form submitted 08/06/2024. Lexi Veloz RN [facility] 08-06-2024 Miscellaneous Notes 1st risk assessment form submitted 08/06/2024. Lexi Veloz RN documented in this encounter [facility] 08-05-2024 Note HNO ID: [id number] Author: MAYRA ALMANZA RDMS Service: ? Author Type: Supervisor Volunteer Services Type: Progress Notes Filed: 08/06/2024 15:46 Note [...] PATIENT PRESENTS WITH AN IMPLANTABLE OR ATTACHED SHIFT SUPERINTENDENT CAUSTIC CRESYLATE: No RADIOLOGY DEPARTMENT: Ultrasound PERIPHERAL IV DATA: Not applicable SIGNED BY: Mayra Almanza RDMS RVT August 06, 2024 3:45 PM [facility] 08-04-2024 Note Addended by: JEN BOWLING on: 08/04/2024 04:44 PM Modules accepted: Orders [facility] 08-04-2024 Note Addended by: JEN BOWLING on: 08/04/2024 04:44 PM Modules accepted: Orders [facility] 08-04-2024 Miscellaneous Notes Addended by: JEN BOWLING on: 08/04/2024 04:44 PM Modules accepted: Orders Addended by: JEN BOWLING on: 08/04/2024 04:44 PM Modules accepted: Orders at 9.2 weeks gestation here for NOB. See progress note. Jen Bowling APRN.CNM documented in this encounter [facility] 08-04-2024 Progress note Formatting of t his note might be different from the original. at 9.2 weeks gestation here for NOB. See progress note. Jen Bowling APRN.CNM [facility] 08-03-2024 Note HNO ID: [id number] Author: JEN BOWLING APRN.CNM Service: ? Author Type: Telegraphic Typewriter Mechanic Type: Progress Notes Filed: 08/04/2024 12:32 Note [...] Jace Ramsey Age: 32 Occupation: [employer] Gender: Male PAST MEDICAL HISTORY Diagnosis Date Anemia GERD (gastroesophageal reflux disease) History of pre-eclampsia kidney stones Known medical problems melanoma back Malignant melanoma (HCC) depression PAST SURGICAL HISTORY Procedure Laterality Date IUD INSERTION (GROCERY CLERK CHECKING DEPT)_*FL 01/29/2008 Mirena IUD REMOVAL (GROCERY CLERK CHECKING DEPT)_*FL 06/28/2008 Mirena KIDNEY STONE SURGERY HX 09/2021 PAST SURGICAL HISTORY OF 2024 skin lesion biopsy, back Current Outpatient Medications (more content not included)... [facility] 08-03-2024 History of Present illness Narrative [...] and 36w6d. Marital Status:Single Partner: Name: Jace Rasmey Age: 32 Occupation: [employer] Gender: Male PAST MEDICAL HISTORY Diagnosis Date Anemia GERD (gastroesophageal reflux disease) History of pre-eclampsia kidney stones Known medical problems melanoma back Malignant melanoma (HCC) depression PAST SURGICAL HISTORY Procedure Laterality Date IUD INSERTION (GROCERY CLERK CHECKING DEPT)_*FL 01/29/2008 Mirena IUD REMOVAL (GROCERY CLERK CHECKING DEPT)_*FL 06/28/2008 Mirena KIDNEY STONE SURGERY HX [...] discussed with the Patient or Patient's Authorized Mine Car Mechanic. As applicable, any other physician, advance practice provider, medical student, or other health professional student that will be observing or involved in the sensitive examination for educational or training purposes was discussed with the Patient or Authorized Mine Car Mechanic. The Patient or Authorized Mine Car Mechanic has agreed to proceed with the sensitive [...] Your guide to a health and the Supervisor Order Takers. Reviewed midwifery and chief design branch services that are available. Reviewed [employer] program. Patient declines referral at this time. [...] in 4 weeks or sooner prn. Jen Bowling APRN.CNM documented in this encounter [facility] 08-03-2024 Instructions Raffy Kate MA - 08/03/2024 10:58 AM EDT Please select the following link to access the [facility] Your Guide to a Healthy . [email or web address] documented in this encounter [facility] 07-29-2024 Telephone encounter Note Chas Forrest, You had an appointment with Dr. Werner today that you did not log in for. If you are still seeking care with her, please call [phone] to reschedule. If not, please call the office at [phone] to update the office. Elsa RNCC [facility] 07-29-2024 Miscellaneous Notes Chas Forrest, You had an appointment with Dr. Werner today that you did not log in for. If you are still seeking care with her, please call [phone] to reschedule. If not, please call the office at [phone] to update the office. Elsa RNCC documented in this encounter [facility] 07-28-2024 History of Present illness Narrative Images from the original note were not included. Sanjuanita Rodarte MD Surgical Oncology [address] [facility], [address] [place] [id number] Name: Adriane Avalos Age: [age] year old Sex: Adriane Avalos : 1985 Referring Provider: No ref. provider found Subjective CHIEF COMPLAINT: Melanoma surveillance ONCOLOGIC HISTORY: 03/03/24: Melanoma of upper back 04/03/24: WLE + SLNB, path: [id number] Anatomic Location: Upper back Breslow Depth: 1.5mm Ulceration: No Mitosis: 1/mm2 Bolivar Lymph Node Biopsy: Yes Number of positive [...] MD 07/28/2024 1138 documented in this encounter [facility] 07-28-2024 Note HNO ID: [id number] Author: SANJUANITA RODARTE MD Service: ? Author Type: Physician Type: Progress Notes Filed: 07/28/2024 11:39 Note Text: Sanjuanita Rodarte MD Surgical Oncology [address] [facility], [address] [place] [id number] Name: Adriane Avalos Age: [age] year old Sex: Adriane Avalos : 1985 Referring Provider: No ref. provider found Subjective CHIEF COMPLAINT: Melanoma surveillance ONCOLOGIC HISTORY: 03/03/24: Melanoma of upper back 04/03/24: WLE + SLNB, path: [id number] Anatomic Location: Upper back Breslow Depth: 1.5mm Ulceration: No Mitosis: 1/mm2 Bolivar Lymph Node Biopsy: Yes Number of positive [...] on 04/13/2024 Sanjuanita Rodarte MD 07/28/2024 1138 [facility] 07-16-2024 Note HNO ID: [id number] Author: ARIN TAYLOR APRN.SALESPERSON [employer]ARD [employer] Service: ? Author Type: Nurse Practitioner Type: Progress Notes Filed: 07/16/2024 12:08 Note Text: Drafting Supervisor offered: Patient declines. Adriane Avalos is a 39 year old female who presents for problem visit of positive test. HPI: Adriane presents for confirmation of . Taking PNV. was unplanned, but she is accepting. LMP 05/23/24. OB History Gravida5 Para3 Term2 Preterm1 AB2 Living3 SAB2 IAB0 Ectopic0 Multiple0 Live Births3 Binder Layer History LMP: 05/23/2024 (Exact Date), Age at Menarche: 14 Age at First : Age at Menopause: Binder Layer History Comments: Sexual Activity: Yes; Male Contraception: [...] HISTORY Procedure Laterality Date - IUD INSERTION (GROCERY CLERK CHECKING DEPT)_*FL 01/29/2008 Mirena - IUD REMOVAL (GROCERY CLERK CHECKING DEPT)_*FL 06/28/2008 Mirena - KIDNEY STONE SURGERY HX 09/2021 - PAST SURGICAL HISTORY OF 2024 skin lesion biopsy, back FAMILY HISTORY Problem Relation Age of Onset - Breast Cancer Maternal Grandmother 75 - Melanoma Maternal Grandmother one on nose - Diabetes Maternal Grandfather - Heart Maternal Grandfather [place]- Social History Tobacco Use - Smoking status: [...] Assessed 07/16/2024 REVIEW OF SYSTEMS Expanded ROS: GROCERY CLERK CHECKING: + test Allergies and current medication updated:Yes SENSITIVE EXAM: The sensitive examination was discussed with the Patient or Patient's Authorized Mine Car Mechanic. As applicable, any other physician, advance practice provider, medical student, or other health professional student that will be observing or involved in the sensitive examination for educational or training purposes was discussed with the Patient or Authorized Mine Car Mechanic. The Patient or Authorized Mine Car Mechanic has agreed to proceed with the sensitive examination. (Sensitive examination includes inspection and/or palpation of the breasts, pelvis, prostate and anorectal regions). EXAM: BP 104/60 Wt 135 lb (61.2kg) LMP 05/23/2024 GENERAL: pleasant, female in no apparent distress HEENT: Normocephalic, atraumatic, mucus membranes moist, and no lesions CHEST: Normal inspiratory effort PELVIC: external genitalia normal, normal Bartholin's glands, urethra, Loyalhanna's glands, no vulvar lesions, normal appearing perineal body and perianal region NEURO: alert and oriented x3,exam grossly non-focal EXTREMITIES: normal ASSESSMENT AND PLAN: 1. Encounter for test, result positive (HCC) - ICD9: V72.42, ICD10: Z32.01 (primary diagnosis) - Enrolled in home care provider - Recommend continuing PNV - Reviewed avoiding [...] Medical Decision Making Level: 3 - Low [facility] 05-28-2024 History of Present illness Narrative Images from the original note were not included. [facility] Department of Medical Genetics Consultation Note Genetic Counselor: Dmitry Gutiérrez [facility] [place] Patient: Adriane Avalos This visit was conducted via [employer]. I have communicated my name and active licensure. The patient's identity and physical location were verified at the time of this visit. Either the patient or their legal appliance service representative has been informed of the risks [...] provided informed consent for Multi-Cancer panel through [employer]. Results are expected in 2-3 weeks from the time of sample collection. Genetic counseling and consideration of genetic testing is recommended for the patient's maternal grandmother. We will request that [employer] sends a saliva kit to the patient's [...] SURGICAL HISTORY Procedure Laterality Date IUD INSERTION (GROCERY CLERK CHECKING DEPT)_*FL 01/29/2008 Mirena IUD REMOVAL (GROCERY CLERK CHECKING DEPT)_*FL 06/28/2008 Mirena KIDNEY STONE SURGERY HX [...] nose Diabetes Maternal Grandfather Heart Maternal Grandfather [place]- The patient's maternal ancestors are of [place] descent and paternal ancestors are of unknown descent. It is unknown if there is Ashkenazi Christianity ancestry. It is unknown if there is [...] structure Additionally, a recent 2023 study (PMID: [id number]) showed that 10.6-15.8% patients with melanoma have [...] appropriate standard National Comprehensive Cancer Network and [place] Cancer Society guidelines, with consideration of their personal and family history risk factors. In this case, the patient will be referred back to their care providers for discussions of management. After considering the risks, benefits, and limitations, the patient chose to pursue and provided informed consent for the following testing: Multi-Cancer panel through [employer]. The Multi-Cancer Panel includes the following 70 genes: AIP, ALK, APC, SOTO, AXIN2, BAP1, BARD1, BLM, BMPR1A, BRCA1, BRCA2, BRIP1, CDC73, CDH1, CDK4, CDKN1B, CDKN2A, CHEK2, CTNNA1, DICER1, EGFR, EPCAM, FH, FLCN, GREM1, HOXB13, KIT, LZTR1, MAX, MBD4, MEN1, MET, MITF, MLH1, MSH2, MSH3, MSH6, MUTYH, NF1, NF2, NTHL1, PALB2, PDGFRA, PMS2, POLD1, POLE, POT1, WZLVJ8D, PTCH1, PTEN, RAD51C, RAD51D, RB1, RET, SDHA, SDHAF2, SDHB, SDHC, SDHD, SMAD4, SMARCA4, SMARCB1, SMARCE1, STK11, SUFU, KDYZ675, TP53, TSC1, TSC2, VHL. The Multi-Cancer panel [...] to the presenting phenotype. We discussed that [employer] may contact the patient regarding billing. The patient should watch for this communication and respond promptly. The patient should contact [employer] directly with any billing questions (ph. [phone] or [email or web address]). Per the patient's request, we will contact her by [employer] or telephone to review these results. A [...] greater than 50% of which was spent [id number] counseling. This plan is being carried out under the oversight of Dr. Bhavana Marshall. This note will also be sent to the referring provider via the electronic medical record. EVITA Leiva LGC [facility] CC: Dr. Valeria Marshall documented in this encounter [facility] 05-28-2024 Note HNO ID: [id number] Author: DMITRY GUTIÉRREZ LGC Service: ? Author Type: Research Type: Progress Notes Filed: 05/28/2024 15:58 Note Text: [facility] Department of Medical Genetics Consultation Note Genetic Counselor: EVITA Leiva LGC Patient: Adriane Avalos This visit was conducted via [employer]. I have communicated my name and active licensure. The patient's identity and physical location were verified at the time of this visit. Either the patient or their legal appliance service representative has been informed of the risks [...] patient's maternal grandmother. We will request that [employer] sends a saliva kit to the patient's [...] SURGICAL HISTORY Procedure Laterality Date IUD INSERTION (GROCERY CLERK CHECKING DEPT)_*FL 01/29/2008 Mirena IUD REMOVAL (GROCERY CLERK CHECKING DEPT)_*FL 06/28/2008 Mirena KIDNEY STONE SURGERY HX [...] nose Diabetes Maternal Grandfather Heart Maternal Grandfather [place]- The patient's maternal ancestors are of [place] descent and paternal ancestors are of unknown descent. It is unknown if there is Ashkenazi Christianity ancestry. It is unknown if there is [...] structure Additionally, a recent 2023 study (PMID: [id number] (more content not included)... [facility] 05-13-2024 History of Present illness Narrative Radiology Service Progress Note PATIENT NAME: Adriaen JURADON: [id number] DATE OF SERVICE: May 13, 2024 TIME: [...] PATIENT PRESENTS WITH AN IMPLANTABLE OR ATTACHED SHIFT SUPERINTENDENT CAUSTIC CRESYLATE: No RADIOLOGY DEPARTMENT: Ultrasound PERIPHERAL IV DATA: Not applicable SIGNED BY: Abad Nunez RDMS, RVAva May 13, 2024 11:58 AM documented in this encounter [facility] 05-13-2024 Note HNO ID: [id number] Author: ABAD NUNEZ RDMS Service: ? Author Type: Perch Mender Type: Progress Notes Filed: 05/13/2024 11:58 Note [...] PATIENT PRESENTS WITH AN IMPLANTABLE OR ATTACHED SHIFT SUPERINTENDENT CAUSTIC CRESYLATE: No RADIOLOGY DEPARTMENT: Ultrasound PERIPHERAL IV DATA: Not applicable SIGNED BY: Abad Nunez RDMS, RVT May 13, 2024 11:58 AM [facility] 05-01-2024 Instructions Valeria Werner MD - [...] children's cancer risk documented in this encounter [facility] 05-01-2024 Note HNO ID: [id number] Author: SHARONDA KINNEY MA Service: ? Author Type: Welding Machine Operator Helper Gas Type: Progress Notes Filed: 05/01/2024 10:58 Note Text: Additional intake questions: Has the patient had fever, nausea, vomiting, diarrhea, constipation, fatigue for > 1 week? No Does the patient have a decreased appetite? No Does patient want to see a Casting Assistant? No (yes to any of above refer patient to schedulers for dietitian appointment) ) Does patient have any new or increased numbness or tingling of extremities? No Is patient interested in fertility information? No Does patient need any prescription refills? No Does patient have an advanced directive in place? No, Electronically Signed By: Sharonda Kinney MA [facility] 05-01-2024 History of Present illness Narrative Additional intake questions: Has the patient had fever, nausea, vomiting, diarrhea, constipation, fatigue for > 1 week? No Does the patient have a decreased appetite? No Does patient want to see a Casting Assistant? No (yes to any of above refer patient to schedulers for dietitian appointment) ) Does patient have any new or increased numbness or tingling of extremities? No Is patient interested in fertility information? No Does patient need any prescription refills? No Does patient have an advanced directive in place? No, Electronically Signed By: Sharonda Kinney MA [facility] Patient name: Adriane Avalos Date of service: May 01, 2024 Diagnosis Stage IIIA melanoma, upper back Oncology History Stage IIIA melanoma of upper back 03/03/24: melanoma of upper back: Depth 1.5 mm. Ulceration not present. Performed at [facility] 04/03/24 WLE and SLNB: no residual melanoma. Bolivar lymph node with metastatic melanoma in 1/2 [...] SURGICAL HISTORY Procedure Laterality Date IUD INSERTION (GROCERY CLERK CHECKING DEPT)_*FL 01/29/2008 Mirena IUD REMOVAL (GROCERY CLERK CHECKING DEPT)_*FL 06/28/2008 Mirena KIDNEY STONE SURGERY HX 09/2021 PAST SURGICAL HISTORY OF 2024 skin lesion biopsy, back Family History FAMILY HISTORY Problem Relation Age of Onset Breast Cancer Maternal Grandmother 75 Melanoma Maternal Grandmother Diabetes Maternal Grandfather Heart Maternal Grandfather [place]- Social History Social History Tobacco Use Smoking [...] < 0.3 mm lymph node involvement (PMID [id number]). 5 year disease specific survival rate in [...] which included preparing to see the patient, [id number] patient care, completing clinical documentation, obtaining and/or reviewing separately obtained history, performing a medically appropriate examination, counseling and educating the patient/family/caregiver, ordering medications, tests, or procedures, communicating with other HCPs (not separately reported), independently interpreting results (not separately reported), communicating results to the patient/family/caregiver, and care coordination (not separately reported). documented in this encounter [facility] 05-01-2024 Note HNO ID: [id number] Author: VALERIA WERNER MD Service: ? Author Type: Physician Type: Progress Notes Filed: 05/01/2024 10:58 Note Text: [facility] Patient name: Adriane Avalos Date of service: May 01, 2024 Diagnosis Stage IIIA melanoma, upper back Oncology History Stage IIIA melanoma of upper back 03/03/24: melanoma of upper back: Depth 1.5 mm. Ulceration not present. Performed at [facility] 04/03/24 WLE and SLNB: no residual melanoma. Bolivar lymph node with metastatic melanoma in 1/2 [...] SURGICAL HISTORY Procedure Laterality Date IUD INSERTION (GROCERY CLERK CHECKING DEPT)_*FL 01/29/2008 Mirena IUD REMOVAL (GROCERY CLERK CHECKING DEPT)_*FL 06/28/2008 Mirena KIDNEY STONE SURGERY HX 09/2021 PAST SURGICAL HISTORY OF 2024 skin lesion biopsy, back Family History FAMILY HISTORY Problem Relation Age of Onset Breast Cancer Maternal Grandmother 75 Melanoma Maternal Grandmother Diabetes Maternal Grandfather Heart Maternal Grandfather [place]- Social History Social History Tobacco Use Smoking [...] Effort: Pulmonary effort (more content not included)... [facility] 04-23-2024 Note HNO ID: [id number] Author: LISA CARNEY APRN.SALESPERSON YARD GOODS Service: ? Author Type: Nurse Practitioner Type: Progress Notes Filed: 04/23/2024 16:15 Note Text: Patient declined rail technician. Adriane is a 39 year old who presents for an annual gynecologic exam without complaints. LMP 04/18/2024 Menses: cycles every 25 days and 5-6 days of flow. Contraception: progesterone only HPV vaccine: No Last Pap: 05/20/2018 normal HPV: 05/20/2018 negative History of abnormal pap: No Last mammogram: 2018normal OB History Gravida5 Para3 Term2 Preterm1 AB2 Living3 SAB2 IAB0 Ectopic0 Multiple0 Live Births3 Binder Layer History LMP: 04/18/2024 (Exact Date), Having periods Age at Menarche: 14 Age at First : Age at Menopause: Binder Layer History Comments: Sexual Activity: Yes; Male Contraception: Vasectomy, Pill Menstrual Tracking History Flowsheet Row Office Visit from 04/23/2024 in OB/Gynecology Period Cycle (Days) 28 Period Duration (Days) 6 Menstrual Flow Moderate PAST MEDICAL HISTORY Diagnosis Date Anemia GERD (gastroesophageal reflux disease) History of pre-eclampsia kidney stones Known medical problems melanoma back depression PAST SURGICAL HISTORY Procedure Laterality Date IUD INSERTION (GROCERY CLERK CHECKING DEPT)_*FL 01/29/2008 Mirena IUD REMOVAL (GROCERY CLERK CHECKING DEPT)_*FL 06/28/2008 Mirena KIDNEY STONE SURGERY HX 09/2021 PAST SURGICAL HISTORY OF 2024 skin lesion biopsy, back FAMILY HISTORY Problem Relation Age of Onset Breast Cancer Maternal Grandmother 75 Melanoma Maternal Grandmother Diabetes Maternal Grandfather Heart Maternal Grandfather [place]- SOCIAL HISTORY Social History Tobacco Use Smoking [...] discussed with the Patient or Patient's Authorized Mine Car Mechanic. As applicable, any other physician, advance practice provider, medical student, or other health professional student that will be observing or involved in the sensitive examination for educational or training purposes was discussed with the Patient or Authorized Mine Car Mechanic. The Patient or Authorized Mine Car Mechanic has agreed to proceed with the sensitive [...] external genitalia normal, normal Bartholin's glands, urethra, Loyalhanna's glands, no vulvar lesions, no cervical lesions, [...] or sooner as needed Lisa Carney APRN.AURY [facility] 04-23-2024 History of Present illness Narrative Patient declined rail technician. Adriane is a 39 year old who presents for an annual gynecologic exam without complaints. LMP 04/18/2024 Menses: cycles every 25 days and 5-6 days of flow. Contraception: progesterone only HPV vaccine: No Last Pap: 05/20/2018 normal HPV: 05/20/2018 negative History of abnormal pap: No Last mammogram: 2018normal OB History Gravida5 Para3 Term2 Preterm1 AB2 Living3 SAB2 IAB0 Ectopic0 Multiple0 Live Births3 Binder Layer History LMP: 04/18/2024 (Exact Date), Having periods Age at Menarche: 14 Age at First : Age at Menopause: Binder Layer History Comments: Sexual Activity: Yes; Male Contraception: Vasectomy, Pill Menstrual Tracking History Flowsheet Row Office Visit from 04/23/2024 in OB/Gynecology Period Cycle (Days) 28 Period Duration (Days) 6 Menstrual Flow Moderate PAST MEDICAL HISTORY Diagnosis Date Anemia GERD (gastroesophageal reflux disease) History of pre-eclampsia kidney stones Known medical problems melanoma back depression PAST SURGICAL HISTORY Procedure Laterality Date IUD INSERTION (GROCERY CLERK CHECKING DEPT)_*FL 01/29/2008 Mirena IUD REMOVAL (GROCERY CLERK CHECKING DEPT)_*FL 06/28/2008 Mirena KIDNEY STONE SURGERY HX 09/2021 PAST SURGICAL HISTORY OF 2024 skin lesion biopsy, back FAMILY HISTORY Problem Relation Age of Onset Breast Cancer Maternal Grandmother 75 Melanoma Maternal Grandmother Diabetes Maternal Grandfather Heart Maternal Grandfather [place]- SOCIAL HISTORY Social History Tobacco Use Smoking [...] discussed with the Patient or Patient's Authorized Mine Car Mechanic. As applicable, any other physician, advance practice provider, medical student, or other health professional student that will be observing or involved in the sensitive examination for educational or training purposes was discussed with the Patient or Authorized Mine Car Mechanic. The Patient or Authorized Mine Car Mechanic has agreed to proceed with the sensitive [...] external genitalia normal, normal Bartholin's glands, urethra, Loyalhanna's glands, no vulvar lesions, no cervical lesions, [...] year or sooner as needed Lisa Carney APRN.AUYR documented in this [facility] [facility] History of Present illness Narrative [...] PATIENT PRESENTS WITH AN IMPLANTABLE OR ATTACHED SHIFT SUPERINTENDENT CAUSTIC CRESYLATE: No RADIOLOGY DEPARTMENT: MR; Exam(s) Completed: Head: Routine Brain PERIPHERAL IV DATA: Site assessment: Clean,Dry and Intact, Site disposition Discontinued SIGNED BY: RT Briseida(R) April 23, 2024 11:10 AM documented in this encounter [facility] 04-23-2024 Note HNO ID: [id number] Author: RONIT MCINTYRE RT(R) Service: ? Author [...] PATIENT PRESENTS WITH AN IMPLANTABLE OR ATTACHED SHIFT SUPERINTENDENT CAUSTIC CRESYLATE: No RADIOLOGY DEPARTMENT: MR; Exam(s) Completed: Head: Routine Brain PERIPHERAL IV DATA: Site assessment: Clean,Dry and Intact, Site disposition Discontinued SIGNED BY: RT Briseida(R) April 23, 2024 11:10 AM [facility] 04-23-2024 History of Present illness Narrative [...] PATIENT PRESENTS WITH AN IMPLANTABLE OR ATTACHED SHIFT SUPERINTENDENT CAUSTIC CRESYLATE: No ALLERGIES: Reviewed and unchanged CONTRAST ALLERGY: [...] TIME: 4:03 PM documented in this encounter [facility] 04-23-2024 Note HNO ID: [id number] Author: SHANIEC ABRAMS RT(R) Service: ? Author Type: Perch Mender Type: Progress Notes Filed: 04/23/2024 16:03 Note [...] PATIENT PRESENTS WITH AN IMPLANTABLE OR ATTACHED SHIFT SUPERINTENDENT CAUSTIC CRESYLATE: No ALLERGIES: Reviewed and unchanged CONTRAST ALLERGY: [...] DATE: April 23, 2024 TIME: 4:03 PM [facility] 04-14-2024 History of Present illness Narrative Sanjuanita Rodarte MD Surgical Oncology 1 [facility], [address] [place] [address] Name: Adriane Avalos Age: [age] year old Sex: Adriane Avalos : 1985 Referring Provider: No ref. provider found Subjective CHIEF COMPLAINT: Postop Melanoma ONCOLOGIC HISTORY: 03/03/24: Melanoma of upper back 04/03/24: WLE + SLNB, path: [id number] HISTORY OF PRESENT ILLNESS: Ms. vAalos is a 39 year old female who presents for postop follow up for history of melanoma. Date of Surgery:04/03/2024 Anatomic Location: Upper back Breslow Depth: 1.5mm Ulceration: No Mitosis: 1/mm2 [place] Lymph Node Biopsy: Yes Number of positive [...] normal. DATA: Pathology Report: FINAL DIAGNOSIS A. [place] lymph node, right axillary, excision: - Metastatic melanoma in one (1) lymph node (1/), (see comment). - The metastatic deposit is 0.1 mm. - No extranodal extension is present. B. [place] lymph node, left axillary, excision: - One [...] months with US of axilla. -Follow up [id number] with Dermatology -Sun protection recommendations discussed. Cancer Staging 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) Staging form: Melanoma of the Skin, AJCC 8th Edition - Pathologic stage from 04/03/2024: Stage IIIA (pT2a, pN1a, cM0) - Signed by Sanjuanita Rodarte MD on 04/13/2024 Sanjuanita Rodarte MD 04/14/2024 1622 documented in this encounter [facility] 04-14-2024 Note HNO ID: [id number] Author: SANJUANITA RODARTE MD Service: ? Author Type: Physician Type: Progress Notes Filed: 04/14/2024 16:23 Note Text: Sanjuanita Rodarte MD Surgical Oncology [address] [place] [address], [place] [address] Name: Adriane Avalos Age: [age] year old Sex: Adriane Avalos : 1985 Referring Provider: No ref. provider found Subjective CHIEF COMPLAINT: Postop Melanoma ONCOLOGIC HISTORY: 03/03/24: Melanoma of upper back 04/03/24: WLE + SLNB, path: [id number] HISTORY OF PRESENT ILLNESS: Ms. Avalos is a 39 year old female who presents for postop follow up for history of melanoma. Date of Surgery:04/03/2024 Anatomic Location: Upper back B[place]low Depth: 1.5mm Ulceration: No Mitosis: 1/mm2 [place] Lymph Node Biopsy: Yes Number of positive [...] normal. DATA: Pathology Report: FINAL DIAGNOSIS A. [place] lymph node, right axillary, excision: - Metastatic melanoma in one (1) lymph node (02/25), (see comment). - The metastatic deposit is 0.1 mm. - No extranodal extension is present. B. [place] lymph node, left axillary, excision: - One [...] months with US of axilla. -Follow up [id number] with Dermatology -Sun protection recommendations discussed. Cancer Staging 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) Staging form: Melanoma of the Skin, AJCC 8th Edition - Pathologic stage from 04/03/2024: Stage IIIA (pT2a, pN1a, cM0) - Signed by Sanjuanita Rodarte MD on 04/13/2024 Sanjuanita Rodarte MD 04/14/2024 6539 [facility] 04-09-2024 Note HNO ID: [id number] Author: SANJUANITA RODARTE MD Service: ? Author Type: Physician Type: Progress Notes Filed: 04/09/2024 12:19 Note Text: Informed her of pathology results. Will obtain staging scans and present at tumor board for role of adjuvant immunotherapy. [facility] 04-09-2024 History of Present illness Narrative Informed her of pathology results. Will obtain staging scans and present at tumor board for role of adjuvant immunotherapy. documented in this encounter [facility] 04-03-2024 Note HNO ID: [id number] Author: REFUGIO SHIRLEY APRN.FIELD SUPPORT REPRESENTATIVE Service: Nursing Author Type: Nurse Spray I Painter Type: Anesthesia Procedure Notes Filed: 04/03/2024 14:12 Note Text: ANESTHESIOLOGY PROCEDURE NOTE Airway General Information Procedure Start Time/Medication Administration: 04/03/2024 1:52 PM Procedure End Time: 04/03/2024 1:52 PM Patient location during procedure: OR Timeout Performed Pre-procedure: timeout performed Consent Obtained: Yes Patient identity confirmed: arm band and patient Staffing FIELD SUPPORT REPRESENTATIVE: Refugio Shirley APRN.FIELD SUPPORT REPRESENTATIVE Performed by: CANDY Indications and Patient Condition [...] no Airway not difficult SIGNATURE: Refugio Shirley APRN.FIELD SUPPORT REPRESENTATIVE PATIENT NAME: Adriane Avalos DATE: April 03, 2024 TIME: 2:12 PM CSN: [id number] [facility] 03-26-2024 History and physical note Images from the original note were not included. Sanjuanita Rodarte MD Surgical Oncology [address] [place] [address], [address] [place] [address] Name: Adriane Avalos Age: [age] year old [...] SURGICAL HISTORY Procedure Laterality Date IUD INSERTION (GROCERY CLERK CHECKING DEPT)_*[place] 01/29/2008 Mirena IUD REMOVAL (GROCERY CLERK CHECKING DEPT)_*FL 06/28/2008 Mirena KIDNEY STONE SURGERY HX [...] Grandmother Diabetes Maternal Grandfather Heart Maternal Grandfather [place]- Social History Tobacco Use Smoking status: Every [...] Planning: WLE: Yes SLNB: Yes - Melanoma [place] of [place] risk calculator: 19% Adjacent tissue [...] on 03/26/2024 Sanjuanita Rodarte MD 03/26/2024 1151 [facility] 03-26-2024 History and physical note Images from the original note were not included. Sanjuanita Rodarte MD Surgical Oncology 1 [facility], [address] [place] [address] Name: Adriane Avalos Age: [age] year old [...] SURGICAL HISTORY Procedure Laterality Date IUD INSERTION (GROCERY CLERK CHECKING DEPT)_*FL 01/29/2008 Mirena IUD REMOVAL (GROCERY CLERK CHECKING DEPT)_*FL 06/28/2008 Mirena KIDNEY STONE SURGERY HX [...] Grandmother Diabetes Maternal Grandfather Heart Maternal Grandfather [place]- Social History Tobacco Use Smoking status: Every [...] Planning: WLE: Yes SLNB: Yes - Melanoma [place] of [place] risk calculator: 19% Adjacent tissue [...] MD 03/26/2024 1151 documented in this encounter [facility] 09-20-2023 History of Present illness Narrative HISTORY & PHYSICAL EXAMINATION Patient Name: Adriane Avalos MR #: [id number] : 1985 Physicians: Dayan Galindo MD (Family); No ref. provider found (Referring) Chief Complaint/Reason for Visit: Hemorrhoids History of Present Illness: Adriane Avalos is a 38 y.o. y/o female past medical without history presenting for referral for complaints of hemorrhoids. She describes being seen multiple times over the last 10 years with complaints of perianal pain, itching and swelling. Has tried pter-emc-voyclez hemorrhoid products and creams. Denies any significant [...] time 30 minutes, greater than 50% spent [id number] with the patient obtaining history and performing exam explained the procedure obtaining consent and coordinating care documented in this encounter [facility] 09-09-2023 Emergency department Note Chief Complaint Patient [...] Color, Urine Light-Yellow Appearance, Urine Clear Specific [place], Urine 1.012 pH, Urine 5.5 Protein, Urine [...] Abnormality Status --------- ------ Urinalysis with Reflex Cu...[[id number]] Abnormal Final result Extra Urine Card Tube[[id number]] Please view results for these tests on [...] THAO Garcia 09/09/231950 documented in this encounter [facility] Work Phone: 09-09-2023 Physician Emergency department [...] Color, Urine Light-Yellow Appearance, Urine Clear Specific [place], Urine 1.012 pH, Urine 5.5 Protein, Urine [...] Abnormality Status --------- ------ Urinalysis with Reflex Cu...[[id number]] Abnormal Final result Extra Urine Card Tube[[id number]] Please view results for these tests on [...] side #2 periportal edema THAO Garcia 09/09/231950 [facility] Work Phone: 04-18-2023 History of Present illness Narrative Drafting Supervisor offered: Patient declines. Adriane is a 38 [...] L3 SAB2 IAB0 Ectopic0 Multiple0 Live Births3 [place] History LMP: 04/16/2018, Having periods Age at Menarche: Age at First : Age at Menopause: [place] History Comments: Sexual Activity: Yes; Male Contraception: Vasectomy PAST MEDICAL HISTORY Diagnosis Date Anemia GERD (gastroesophageal reflux disease) History of pre-eclampsia in prior , currently kidney stones depression Pre-eclampsia or eclampsia superimposed on pre-existing hypertension, with delivery, with current complication PAST SURGICAL HISTORY Procedure Laterality Date IUD INSERTION (GROCERY CLERK CHECKING DEPT)_*[place] 01/29/2008 Mirena IUD REMOVAL (GROCERY CLERK CHECKING DEPT)_*[place] 06/28/2008 Mirena FAMILY HISTORY Problem Relation Age of Onset Breast Cancer Maternal Grandmother 75 Diabetes Maternal Grandfather Heart Maternal Grandfather [place]- SOCIAL HISTORY Social History Tobacco Use Smoking [...] external genitalia normal, normal Bartholin's glands, urethra, [place]'s glands, no vulvar lesions, no cervical lesions, [...] Lisa Carney APRN.AURY documented in this encounter [facility] 11-29-2021 Hospital Discharge instructions Provider/Service: Fernando SinghLocation: [address] Number: [phone] [facility] 09-14-2021 Note History & Physical R eviewed: [...] Referenced From Triage - ED 14-Sep-2021 08:[address] [facility] 09-14-2021 History and physical note History & [...] From Triage - ED 14-Sep-2021 08:51 T [facility] Work Phone: 09-14-2021 History and physical [...] ED 14-Sep-2021 08:51 documented in this encounter [facility] Work Phone: 05-02-2021 Instructions Summer Milner CNP - 05/02/2021 7:57 PM EST Thank you for choosing [facility] for your healthcare needs today. Schedule follow up with your doctor NESHA. ER for symptoms of concern. Please consider smoking cessation. documented in this encounter [facility] 05-02-2021 History of Present illness Narrative Images from the original note were not included. Patient Name: [facility] Location: Adriane Avalos [address] [place] [id number] Date Of : Date Of Visit: 1985 05/02/2021 MRN# Provider: [id number] Summer Milner CNP Chief Complaint Patient presents [...] this is a worm. She was in [place] 2 weeks ago. Rash is not the [...] and her symptoms improved. She traveled to [place] in February. Symptoms began in March. She [...] consider smoking cessation. documented in this encounter [facility] 05-02-2021 History of Present illness Narrative patient [...] any possible pulmonary condition.Follow-up in 2 weeks -[facility] Work Phone: 04-16-2021 History of Present illness [...] expressed from the wounds. She traveled to [place] about a month ago. Other than that [...] per day.Follow-up in 1 to 2 weeks. [facility] Work Phone: 05-27-2015 History of Past [...] of this encounter (statuses as of 04/19/2023) [facility] Diagnosis Rash and nonspecific skin eruption- Primary Rash and other nonspecific skin eruption Cigarette smoker Tobacco use disorder [facility] Diagnosis Hydronephrosis with renal and ureteral calculous obstruction- Primary Contact with and (suspected) exposure to covid-19 Nicotine dependence, unspecified, uncomplicated Calculus of ureter Right lower quadrant pain documented in this encounter [facility] Work Phone: Evaluation note* Diagnosis Encounter for gynecological examination (general) (routine) without abnormal findings- Primary Screening for cervical cancer Screening for malignant neoplasm of the cervix Encounter for screening for human papillomavirus (HPV) Special screening examination for human papillomavirus (HPV) Screening for STDs (sexually transmitted diseases) Screening examination for venereal disease documented [facility]* Diagnosis Internal hemorrhoids- Primary Internal hemorrhoids without mention of complication documented in this encounter [facility] note* Diagnosis Kidney stone on right side- Primary documented in this encounter [facility] Work Phone: Evaluation note* Diagnosis 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)- Primary Malignant melanoma of back (HCC) Malignant melanoma of skin of trunk, except scrotum [facility] Malignant melanoma of back (HCC)- Primary Malignant melanoma of skin of trunk, except scrotum Malignant melanoma of back (HCC) Malignant melanoma of skin of trunk, except scrotum [facility] Diagnosis 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)- Primary [facility] Diagnosis 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)- Primary [facility] Diagnosis 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)- Primary [facility] Encounter for gynecological examination (general) (routine) without abnormal findings- Primary Screen for STD (sexually transmitted disease) Screening examination for venereal disease Encounter for insertion of intrauterine contraceptive device (IUD) [facility] 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) [facility] Diagnosis 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) [facility] Diagnosis Malignant melanoma of back (HCC)- Primary Malignant melanoma of skin of trunk, except scrotum [facility] Diagnosis 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)- Primary [facility] Diagnosis 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)- Primary [facility] Diagnosis Encounter for follow-up surveillance of melanoma- Primary Unspecified follow-up examination 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) Malignant melanoma of skin (HCC) Melanoma of skin, site unspecified 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) [facility] Diagnosis 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) [facility] Diagnosis Family history of melanoma- Primary Family history of other specified malignant neoplasm Malignant melanoma of skin (HCC) Melanoma of skin, site unspecified Family history of breast cancer Family history of malignant neoplasm of breast [facility] Diagnosis Encounter for supervision of high [...] first trimester (HCC) [facility] Diagnosis 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) [facility] Diagnosis 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)- Primary [facility] Diagnosis 12 weeks gestation of (HCC)- Primary state, incidental History of delivery History of pre-eclampsia Personal history of other genital system and obstetric disorders Nausea/vomiting in ([facility]) Unspecified vomiting of , unspecified as to episode of care [facility]* Diagnosis Encounter for screening for malformation using ultrasound ([facility])- Primary 12 weeks gestation of ([facility]) state, incidental Multigravida of advanced maternal age in first trimester ([facility]) documented [facility]* Diagnosis 15 weeks gestation of ([facility])- Primary state, incidental CHERI (generalized anxiety disorder) Generalized anxiety disorder Multigravida of advanced maternal age in second trimester ([facility]) Encounter for supervision of high risk in second trimester, antepartum ([facility]) Constipation during in second trimester ([facility]) documented [facility] encounter [facility]* Diagnosis Malignant melanoma of skin ([facility])- Primary Melanoma of skin, site unspecified Family history of breast cancer Family history of malignant neoplasm of breast Family history of melanoma Family history of other specified malignant neoplasm documented [facility]* Diagnosis screening for malformation using ultrasonics ([facility])- Primary Encounter for routine screening for malformation using ultrasonics Multigravida of advanced maternal age in second trimester ([facility]) 19 weeks gestation of ([facility]) state, incidental documented [facility]* Diagnosis History of pre-eclampsia- Primary Personal history of other genital system and obstetric disorders History of melanoma Personal history of malignant melanoma of skin 19 weeks gestation of ([facility]) state, incidental documented [facility]* Diagnosis Encounter for supervision of high risk in second trimester, antepartum ([facility])- Primary 19 weeks gestation of ([facility]) state, incidental Advanced maternal age in multigravida, second trimester ([facility]) documented in this encounter [facility] note* Diagnosis Onset Date Resolution Status Admit Date 27 weeks gestation of acut e December 06, 2024 11:23pm Uterine contractions acute Octo 2024 11:23pm [facility] Work Phone: History and physical note [facility] Medical Records Department [address] [place] [address] OB Triage Physician Note 12/14/242103 MR#: [id number] Acct: [id number] Name: ADRIANE CARD Rep #:[id number] : 1985 39 From: Lisa Chapman DO PCP: Care Physician,No Primary Status :DEP CLI Y Location: [facility] HPI - General General Date of Admission: [...] DO; No Primary Care Physician ~ [facility] Lisa Chapman [facility] Note Date/Time December 14, 2024 9 :07pm [facility] Medical Records Department [address] [place] [address] OB Triage Physician Note 12/14/242103 MR#: [id number] Acct: [id number] Name: ADRIANE CARD Rep #:[id number] : 1985 39 From: Lisa Chapman DO PCP: Care Physician,No Primary Status :DEP CLI Y Location: [facility] HPI - General General Date of Admission: [...] Signature (if applicable): Date CC: Dr. Lisa Champan, DO; No Primary Care Physician ~ Signed [facility] Work Phone: Hospital Discharge instructions* Attachments The following attachments cannot be sent through Care Everywhere. * Kidney Stone, Adult ED (Ugandan) [facility]: Rerost for referral (narrative)* Consultation (Routine) - Authorized Specialty Diagnoses / Procedures Referred By Moreno bradley Referred To Contact Urology Diagnoses Kidney stone on right side Selam Marcelo, TEMPLATE REPRODUCTION TECHNICIAN-SALESPERSON [employer] [address] [address] Referral ID Status Reason Start Date Expiration Date Visits Requested Visits Authorized [id number] Authorized Specialty Services Required 09/09/2023 09/08/2024 1 1 Electronically signed by Selam Marcelo TEMPLATE REPRODUCTION TECHNICIAN-SALESPERSON [employer] at 09/09/2023 7:48 PM EDT [facility] Work Phone: Reixkt for referral (narrative)* Diagnostic Procedure Only (Routine) - New Request Specialty Diagnoses / Procedures Referred By Moreno bradley Referred To Contact MOLECULAR & FUNCTIONAL IMAGING Diagnoses 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) Procedures NM LYMPH NODE IMAGING LYMPHATICS & LYMPH NODES IMAGING Sanjuanita Rodarte MD [address] [place] [address] Molecular & Functional Imaging [address] [place] [address] Referral ID Status Reason Start Date Expiration Date Visits Requested Visits Authorized [id number] New Request Auto-Generat ed Referral 03/26/2024 04/25/2025 1 1 [facility] for referral (narrative)No reason for referral information availableWAdena [facility] Work Phone: Reason for visit Narrative* MRI/CT (Routine) - Closed Specialty Diagnoses / Procedures Referred By Moreno bradley Referred To Contact MR IMAGING Diagnoses 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) Procedures MRI BRAIN WO/W IVCON MRI BRAIN BRAIN STEM W/O W/CONTRAST MATERIAL Sanjuanita Rodarte MD [address] [place] [address] Phone: tel: fax: [place] [address] Referral ID Status Reason Start Date Expiration Date V isits Requested Visits Authorized [id number] Closed Auto-Generate d Referral 04/09/2024 05/09/2025 1 1 [facility] for visit Narrative* Diagnostic Procedure Only (Routine) - Closed Specialty Diagnoses / Procedures Referred By Moreno bradley Referred To Contact US IMAGING Diagnoses 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) Procedures US HEAD/NECK SOFT TISSUE OTHER US SOFT TISSUE HEAD & NECK REAL TIME IMGE Sanjuanita Centeno MD [address] [place] [address] Phone: tel: fax: [place] [address] Referral ID Status Reason Start Date Expiration Date V isits Requested Visits Authorized [id number] Closed Auto-Generate d Referral 04/24/2024 05/24/2025 1 1 [facility] for visit Narrative* Diagnostic Procedure Only (Routine) - Closed Specialty Diagnoses / Procedures Referred By Moreno bradley Referred To Contact BR IMAGING Diagnoses 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) Procedures US AXILLA ONLY LEFT US LMTD JOINT/OTH NONVASC XTR STRUX R-T W/IMG Sanjuanita Rodarte MD [address] [place] [address] Phone: tel: fax: BR IMAGING [address] [place] [address] Referral ID Status Reason Start Date Expiration Date V isits Requested Visits Authorized [id number] Closed Auto-Generate d Referral 07/12/2024 05/14/2025 1 1 [facility] Summary Purpose Family History No Family History [...] FoundDocuments on File Type Date 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 DATE CREATED AUTHOR AUTHOR'S ORGANIZ ATION 03/23/2022 [facility] DATE CREATED AUTHOR AUTHOR'S ORGANIZ ATION 09/13/2023 [facility] DATE CREATED AUTHOR AUTHOR'S ORGANIZ ATION 09/17/2024 [facility] DATE CREATED AUTHOR AUTHOR'S ORGANIZ ATION 12/10/2024 [facility] DATE CREATED AUTHOR AUTHOR'S ORGANIZ ATION 12/21/2024 [facility] DATE CREATED AUTHOR AUTHOR'S ORGANIZ ATION 12/29/2024 [facility] Reason for Visit (unrecogniz ed section and content) Reason Comments Rash Pt states she had th is issue 2 weeks ago and was seen and provider told her he thought it was hookworms from traveling, was given emverm with failed results, states there are worms in her nose, daughter was treated for pinworms 2 weeks ago Reason Comments Binder Layer Exam Reason Comments Hemorrhoids Reason Onset Date [...] TOMOGRAPHY THORAX W/CONTRAST Sanjuanita Rodarte MD [address] [place] [address] Phone: tel: fax:[phone] [place] [address] Referral ID Status Reason Start Date Expiration Date V isits Requested Visits Authorized [id number] Closed Auto-Generate d Referral 04/13/2024 02/24/2025 1 1 Reason Comments Consult Specialty Diagnoses / Procedures Referred By Contac t Referred To Contact Diagnoses 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) Procedures CONSULT TO HEMATOLOGY/ONCOLOGY OFFICE/OUTPATIENT NEW HIGH MDM 60 MINUTES Sanjuanita Rodarte MD [address] [place] [address] Phone: tel: fax: [place] [address] [place] [address] Phone: tel: fax: Referral ID Status Reason Start Date Expiration Date V isits Requested Visits Authorized [id number] Closed PCP Requested Referral 04/16/2024 04/16/2025 1 1 Reason Comments Melanoma Specialty Diagnoses / Procedures Referred By Moreno t Referred To Contact Diagnoses Malignant melanoma of skin (HCC) Procedures CONSULT TO MEDICAL GENETICS - CANCER MEDICAL GENETICS COUNSELING EACH 30 [place] [address] [place] [address] Phone: tel: fax: [facility] [address] [place] [phone] Referral ID Status Reason Start Date Expiration Date Visits Requested Visits Authorized [id number] Pending Review PCP Requested Referral Auto-Generate d Referral 05/01/2024 05/01/2025 1 1 Reason Comments new ob Reason Comments PRAF Reason Comments Established Patient 3 month follow up, mihaela burnett Reason Onset Date Comments Care 08/26/2024 Reason Comments US Specialty Diagnoses / Procedures Referred By Moreno bradley Referred To Contact [facility] Diagnoses Encounter for supervision of normal in multigravida (HCC) Procedures OBSTETRIC ULTRASOUND WHI US PREG UTERUS AFTER 1ST TRIMEST GESTATION Jen Bowling APRN.[facility] [address] [place] [address] Phone: tel: fax: [address] [address] Referral ID Status Reason Start Date Expiration Date V isits Requested Visits Authorized [id number] Closed Auto-Generate d Referral 08/18/2024 08/03/2025 1 1 Reason Onset Date Comments Care 09/14/2024 Reason Comments genetic testing update Referral ID Status Reason Start Date Expiration Date V isits Requested Visits Authorized [id number] Closed Auto-Generate d Referral 09/03/2024 08/03/2025 1 1 Reason Comments Consult Referred by Jen Bowling Specialty Diagnoses / Procedures Referred By Moreno bradley Referred To Contact Diagnoses Multigravida of advanced maternal age in first trimester (HCC) History of pre-eclampsia History of melanoma 9 weeks gestation of (HCC) Procedures OFFICE/OUTPATIENT NEW HIGH MDM 60 MINUTES Jen Bowling APRN.[facility] [address] [place] [address] Phone: tel: fax: Referral ID Status Reason Start Date Expiration Date V isits Requested Visits Authorized [id number] Closed PCP Requested Referral Auto-Generated Referral 08/04/2024 08/04/2025 1 1 Reason Onset Date Comments Care 10/13/2024 Care Teams (unrecognized sec tion and content) Necktie Stitcher Relationship Specialty Start Date End Date Dayan Galindo MD [address] [place] [address] PCP - General Family Medicine 05/02/21 Necktie Stitcher Relationship Specialty Start Date End Date Dayan Galindo MD MPH [address] [facility], [place] [address] PCP - General 05/03/21 Dayan Galindo MD MPH [address] [facility], [place] [address] PCP - MMO ACO PCP 05/26/21 10/25/21 Necktie Stitcher Relationship Specialty Start Date End Date Dayan Galindo MD [address] [place] [address] PCP - General Family Medicine 05/02/21 Necktie Stitcher Relationship Specialty Start Date End Date Dayan Galindo MD MPH [address] [facility], [address] [address] PCP - General 05/03/21 Necktie Stitcher Relationship Specialty Start Date End Date Shaila Grijalva MD [address] [facility] [address] [place] [address] Traffic Expert Dermatology 03/31/24 Necktie Stitcher Relationship Specialty Start Date End Date Shaila Grijalva MD [address] [facility] [address] [place] [address] Traffic Expert Dermatology 03/31/24 Necktie Stitcher Relationship Specialty Start Date End Date Shaila Grijalva MD [address] [facility] [address] [place] [address] Traffic Expert Dermatology 03/31/24 Necktie Stitcher Relationship Specialty Start Date End Date Shaila Grijalva MD [address] [facility] [address] [place] [address] Traffic Expert Dermatology 03/31/24 Necktie Stitcher Relationship Specialty Start Date End Date Shaila Grijalva MD [address] [facility] [address] [place] [address] Traffic Expert Dermatology 03/31/24 Necktie Stitcher Relationship Specialty Start Date End Date Shaila Grijalva MD [address] [facility] [address] [place] [address] Traffic Expert Dermatology 03/31/24 Necktie Stitcher Relationship Specialty Start Date End Date Shaila Grijalva MD [address] [facility] [address] [place] [address] Traffic Expert Dermatology 03/31/24 Necktie Stitcher Relationship Specialty Start Date End Date Shaila Grijalva MD [address] [place] [address] [place] [address] Traffic Expert Dermatology 03/31/24 Necktie Stitcher Relationship Specialty Start Date End Date Shaila Grijalva MD [address] [place] [address] [place] [address] Traffic Expert Dermatology 03/31/24 Elsa Das, RN Specialty Neon Light Installer Hematology/Oncology 05/01/24 [place] [address] [place] [address] Specialty Instructional Designer Hematology/Oncology 05/01/24 Necktie Stitcher Relationship Specialty Start Date End Date Shaila Grijalva MD [address] [place] [address] [place] [address] Traffic Expert Dermatology 03/31/24 Elsa Das, RN Specialty Neon Light Installer Hematology/Oncology 05/01/24 [place] [address] [facility] [address] [facility] [place] [address] Specialty Instructional Designer Hematology/Oncology 05/01/24 Necktie Stitcher Relationship Specialty Start Date End Date Shaila Grijalva MD [address] [place] [address] [place], [place] [id number] Traffic Expert Dermatology 03/31/24 Elsa Das, RN Specialty Neon Light Installer Hematology/Oncology 05/01/24 [place] [address] [place] [address] Specialty Instructional Designer Hematology/Oncology 05/01/24 Necktie Stitcher Relationship Specialty Start Date End Date Shaila Grijalva MD [address] [place] [address] Traffic Expert Dermatology 03/31/24 Elsa Das, RN Specialty Neon Light Installer Hematology/Oncology 05/01/24 [place] [address] [place] [address] Specialty Instructional Designer Hematology/Oncology 05/01/24 Necktie Stitcher Relationship Specialty Start Date End Date Shaila Grijalva MD [address] [address] [place] [address] Traffic Expert Dermatology 03/31/24 Elsa Das, MARYAN Specialty Neon Light Installer Hematology/Oncology 05/01/24 [place] [address] [place] [address] Specialty Instructional Designer Hematology/Oncology 05/01/24 Necktie Stitcher Relationship Specialty Start Date End Date Shaila Grijalva MD [address] [address] [place] [address] Traffic Expert Dermatology 03/31/24 Elsa Das, RN Specialty Neon Light Installer Hematology/Oncology 05/01/24 [place] [address] [place] [address] Specialty Instructional Designer Hematology/Oncology 05/01/24 Necktie Stitcher Relationship Specialty Start Date End Date Shaila Grijalva MD [address] [place] [address] Traffic Expert Dermatology 03/31/24 Elsa Das, RN Specialty Neon Light Installer Hematology/Oncology 05/01/24 [place] [address] [place] [address] Specialty Instructional Designer Hematology/Oncology 05/01/24 Adriane Li PA-C [address] [address] [place] [address] Dermatology 07/29/24 Necktie Stitcher Relationship Specialty Start Date End Date Shaila Grijalva MD [address] [place] [address] [place] [address] Traffic Expert Dermatology 03/31/24 Elsa Das, RN Specialty Neon Light Installer Hematology/Oncology 05/01/24 [place] [address] [place] [address] Specialty Instructional Designer Hematology/Oncology 05/01/24 Adriane Li PA-C [address] [place] [address] [place] [address] Dermatology 07/29/24 Necktie Stitcher Relationship Specialty Start Date End Date Shaila Grijalva MD [address] [place] [address] [place] [address] Traffic Expert Dermatology 03/31/24 Elsa Das, RN Specialty Neon Light Installer Hematology/Oncology 05/01/24 [place] [address] [place] [address] Specialty Instructional Designer Hematology/Oncology 05/01/24 Adriane Li PA-C [address] [place] [address] Dermatology 07/29/24 Necktie Stitcher Relationship Specialty Start Date End Date Shaila Grijalva MD [address] [place] [address] [place] [address] Traffic Expert Dermatology 03/31/24 Elsa aDs, RN Specialty Neon Light Installer Hematology/Oncology 05/01/24 [place] [address] [place] [address] Specialty Instructional Designer Hematology/Oncology 05/01/24 Adriane Li PA-C [address] [place] [address] [place] [address] Dermatology 07/29/24 Necktie Stitcher Relationship Specialty Start Date End Date Shaila Grijalva MD [address] [place] [address] [place] [address] Traffic Expert Dermatology 03/31/24 Elsa Das RN Specialty Neon Light Installer Hematology/Oncology 05/01/24 [place] [address] [place] [address] Specialty Instructional Designer Hematology/Oncology 05/01/24 Adriane Li PA-C [address] [place] [address] [place] [address] Dermatology 07/29/24 Necktie Stitcher Relationship Specialty Start Date End Date Shaila Grijalva MD [address] [place] [address] [place] [address] Traffic Expert Dermatology 03/31/24 Elsa Das, RN Specialty Neon Light Installer Hematology/Oncology 05/01/24 [place] [address] [place] [address] Specialty Instructional Designer Hematology/Oncology 05/01/24 Adriane Li PA-C [address] [place] [address] [place] [address] Dermatology 07/29/24 Necktie Stitcher Relationship Specialty Start Date End Date Shaila Grijalva MD [address] [place] [address] [place] [address] Traffic Expert Dermatology 03/31/24 Elsa Das, RN Specialty Neon Light Installer Hematology/Oncology 05/01/24 [place] [address] [place] [id number] Specialty Instructional Designer Hematology/Oncology 05/01/24 Necktie Stitcher Relationship Specialty Start Date End Date Shaila Grijalva MD [address] [address] [place] [address] Traffic Expert Dermatology 03/31/24 Elsa Das, RN Specialty Neon Light Installer Hematology/Oncology 05/01/24 [place] [address] [place] [id number] Specialty Instructional Designer Hematology/Oncology 05/01/24 Adriane Li PA-C [address] [place] [address] [place] [address] Dermatology 07/29/24 Necktie Stitcher Relationship Specialty Start Date End Date Shaila Grijalva MD [address] [place] [address] [place] [address] Traffic Expert Dermatology 03/31/24 Elsa Das, RN Specialty Neon Light Installer Hematology/Oncology 05/01/24 [place] [address] [place] [address] Specialty Instructional Designer Hematology/Oncology 05/01/24 Adriane Li PA-C [address] [place] [address] [place] [address] Dermatology 07/29/24 Necktie Stitcher Relationship Specialty Start Date End Date Shaila Grijalva MD [address] [place] [address] [place] [address] Traffic Expert Dermatology 03/31/24 Elsa Das RN Specialty Neon Light Installer Hematology/Oncology 05/01/24 [place] [address] [place] [address] Specialty Instructional Designer Hematology/Oncology 05/01/24 Adriane Li PA-C [address] [address] [place] [address] Dermatology 07/29/24 Necktie Stitcher Relationship Specialty Start Date End Date Shaila Grijalva MD [address] [place] [address] [place] [address] Traffic Expert Dermatology 03/31/24 Elsa Das, MARYAN Specialty Neon Light Installer Hematology/Oncology 05/01/24 [place] [address] [place] [address] Specialty Instructional Designer Hematology/Oncology 05/01/24 Adriane Li PA-C [address] [place] [address] [place] [address] Dermatology 07/29/24 Necktie Stitcher Relationship Specialty Start Date End Date Shaila Grijalva MD [address] [place] [address] [place] [address] Traffic Expert Dermatology 03/31/24 Elsa Das, MARYAN Specialty Neon Light Installer Hematology/Oncology 05/01/24 [place] [address] [place] [address] Specialty Instructional Designer Hematology/Oncology 05/01/24 Adriane Li PA-C [address] [address] [place] [address] Dermatology 07/29/24 Necktie Stitcher Relationship Specialty Start Date End Date Shaila Grijalva MD [address] [address] [place] [address] Traffic Expert Dermatology 03/31/24 Elsa Das, MARYAN Specialty Neon Light Installer Hematology/Oncology 05/01/24 [place] [address] [place] [address] Specialty Instructional Designer Hematology/Oncology 05/01/24 Adriane Li PA-C [address] [address] [place] [address] Dermatology 07/29/24 Necktie Stitcher Relationship Specialty Start Date End Date Shaila Grijalva MD [address] [place] [address] [place] [address] Traffic Expert Dermatology 03/31/24 Elsa Das, RN Specialty Neon Light Installer Hematology/Oncology 05/01/24 [place] [address] [place] [address] Specialty Instructional Designer Hematology/Oncology 05/01/24 Adriane Li PA-C [address] [place] [address] [place] [address] Dermatology 07/29/24 Necktie Stitcher Relationship Specialty Start Date End Date Shaila Grijalva MD [address] [address] [place] [address] Traffic Expert Dermatology 03/31/24 Elsa Das RN Specialty Neon Light Installer Hematology/Oncology 05/01/24 [place] [address] [place] [address] Specialty Instructional Designer Hematology/Oncology 05/01/24 Adriane Li PA-C [address] [place] [address] Dermatology 07/29/24 Necktie Stitcher Relationship Specialty Start Date End Date Shaila Grijalva MD [address] [place] [address] [place] [address] Traffic Expert Dermatology 03/31/24 Elsa Das, MARYAN Specialty Neon Light Installer Hematology/Oncology 05/01/24 [place] [address] [place] [address] Specialty Instructional Designer Hematology/Oncology 05/01/24 Adriane Li PA-C [address] [place] [address] Dermatology 07/29/24 Team Status: Active Member Role/Relationship [...] consent of such client. Section Author: Pushpa Gant PROHIBITION ON REDISCLOSURE [...] or prosecute any alcohol or drug abuse patient.[facility] the event this information is protected by the Federal Confidentiality of Alcohol and Drug Abuse Patient Records regulations: The Federal rules restrict any use of the information to criminally investigate or prosecute any alcohol or drug abuse patient.[facility] HospitalIn the event this information is protected by the Federal Confidentiality of Alcohol and Drug Abuse Patient Records regulations: The Federal rules restrict any use of the information to criminally investigate or prosecute any alcohol or drug abuse patient.[facility] HospitalIn the event this information is protected by the Federal Confidentiality of Alcohol and Drug Abuse Patient Records regulations: The Federal rules restrict any use of the information to criminally investigate or prosecute any alcohol or drug abuse patient.[facility] HospitalIn the event this information is protected by the Federal Confidentiality of Alcohol and Drug Abuse Patient Records regulations: The Federal rules restrict any use of the information to criminally investigate or prosecute any alcohol or drug abuse patient.[facility] HospitalIn the event this information is protected by the Federal Confidentiality of Alcohol and Drug Abuse Patient Records regulations: The Federal rules restrict any use of the information to criminally investigate or prosecute any alcohol or drug abuse patient.[facility] HospitalIn the event this information is protected by the Federal Confidentiality of Alcohol and Drug Abuse Patient Records regulations: The Federal rules restrict any use of the information to criminally investigate or prosecute any alcohol or drug abuse patient.[facility] HospitalIn the event this information is protected by the Federal Confidentiality of Alcohol and Drug Abuse Patient Records regulations: The Federal rules restrict any use of the information to criminally investigate or prosecute any alcohol or drug abuse patient.[facility] HospitalIn the event this information is protected by the Federal Confidentiality of Alcohol and Drug Abuse Patient Records regulations: The Federal rules restrict any use of the information to criminally investigate or prosecute any alcohol or drug abuse patient.[facility] HospitalIn the event this information is protected by the Federal Confidentiality of Alcohol and Drug Abuse Patient Records regulations: The Federal rules restrict any use of the information to criminally investigate or prosecute any alcohol or drug abuse patient.[facility] HospitalIn the event this information is protected by the Federal Confidentiality of Alcohol and Drug Abuse Patient Records regulations: The Federal rules restrict any use of the information to criminally investigate or prosecute any alcohol or drug abuse patient.[facility] HospitalIn the event this information is protected by the Federal Confidentiality of Alcohol and Drug Abuse Patient Records regulations: The Federal rules restrict any use of the information to criminally investigate or prosecute any alcohol or drug abuse patient.[facility] HospitalIn the event this information is protected by the Federal Confidentiality of Alcohol and Drug Abuse Patient Records regulations: The Federal rules restrict any use of the information to criminally investigate or prosecute any alcohol or drug abuse patient.[facility] HospitalIn the event this information is protected by the Federal Confidentiality of Alcohol and Drug Abuse Patient Records regulations: The Federal rules restrict any use of the information to criminally investigate or prosecute any alcohol or drug abuse patient.[facility] HospitalIn the event this information is protected by the Federal Confidentiality of Alcohol and Drug Abuse Patient Records regulations: The Federal rules restrict any use of the information to criminally investigate or prosecute any alcohol or drug abuse patient.[facility] HospitalIn the event this information is protected by the Federal Confidentiality of Alcohol and Drug Abuse Patient Records regulations: The Federal rules restrict any use of the information to criminally investigate or prosecute any alcohol or drug abuse patient.[facility] HospitalIn the event this information is protected by the Federal Confidentiality of Alcohol and Drug Abuse Patient Records regulations: The Federal rules restrict any use of the information to criminally investigate or prosecute any alcohol or drug abuse patient.[facility] HospitalIn the event this information is protected by the Federal Confidentiality of Alcohol and Drug Abuse Patient Records regulations: The Federal rules restrict any use of the information to criminally investigate or prosecute any alcohol or drug abuse patient.[facility] HospitalIn the event this information is protected by the Federal Confidentiality of Alcohol and Drug Abuse Patient Records regulations: The Federal rules restrict any use of the information to criminally investigate or prosecute any alcohol or drug abuse patient.[facility] HospitalIn the event this information is protected by the Federal Confidentiality of Alcohol and Drug Abuse Patient Records regulations: The Federal rules restrict any use of the information to criminally investigate or prosecute any alcohol or drug abuse patient.[facility] HospitalIn the event this information is protected by the Federal Confidentiality of Alcohol and Drug Abuse Patient Records regulations: The Federal rules restrict any use of the information to criminally investigate or prosecute any alcohol or drug abuse patient.[facility] HospitalIn the event this information is protected by the Federal Confidentiality of Alcohol and Drug Abuse Patient Records regulations: The Federal rules restrict any use of the information to criminally investigate or prosecute any alcohol or drug abuse patient.[facility] HospitalIn the event this information is protected by the Federal Confidentiality of Alcohol and Drug Abuse Patient Records regulations: The Federal rules restrict any use of the information to criminally investigate or prosecute any alcohol or drug abuse patient.[facility] HospitalIn the event this information is protected by the Federal Confidentiality of Alcohol and Drug Abuse Patient Records regulations: The Federal rules restrict any use of the information to criminally investigate or prosecute any alcohol or drug abuse patient.[facility] HospitalIn the event this information is protected by the Federal Confidentiality of Alcohol and Drug Abuse Patient Records regulations: The Federal rules restrict any use of the information to criminally investigate or prosecute any alcohol or drug abuse patient.[facility] HospitalIn the event this information is protected by the Federal Confidentiality of Alcohol and Drug Abuse Patient Records regulations: The Federal rules restrict any use of the information to criminally investigate or prosecute any alcohol or drug abuse patient.[facility] HospitalIn the event this information is protected by the Federal Confidentiality of Alcohol and Drug Abuse Patient Records regulations: The Federal rules restrict any use of the information to criminally investigate or prosecute any alcohol or drug abuse patient.[facility] HospitalIn the event this information is protected by the Federal Confidentiality of Alcohol and Drug Abuse Patient Records regulations: The Federal rules restrict any use of the information to criminally investigate or prosecute any alcohol or drug abuse patient.[facility] HospitalIn the event this information is protected by the Federal Confidentiality of Alcohol and Drug Abuse Patient Records regulations: The Federal rules restrict any use of the information to criminally investigate or prosecute any alcohol or drug abuse patient.[facility] HospitalIn the event this information is protected by the Federal Confidentiality of Alcohol and Drug Abuse Patient Records regulations: The Federal rules restrict any use of the information to criminally investigate or prosecute any alcohol or drug abuse patient.[facility] HospitalIn the event this information is protected by the Federal Confidentiality of Alcohol and Drug Abuse Patient Records regulations: The Federal rules restrict any use of the information to criminally investigate or prosecute any alcohol or drug abuse patient.[facility] HospitalIn the event this information is protected by the Federal Confidentiality of Alcohol and Drug Abuse Patient Records regulations: The Federal rules restrict any use of the information to criminally investigate or prosecute any alcohol or drug abuse patient.[facility] HospitalIn the event this information is protected by the Federal Confidentiality of Alcohol and Drug Abuse Patient Records regulations: The Federal rules restrict any use of the information to criminally investigate or prosecute any alcohol or drug abuse patient.[facility] HospitalIn the event this information is protected by the Federal Confidentiality of Alcohol and Drug Abuse Patient Records regulations: The Federal rules restrict any use of the information to criminally investigate or prosecute any alcohol or drug abuse patient.[facility] HospitalIn the event this information is protected by the Federal Confidentiality of Alcohol and Drug Abuse Patient Records regulations: The Federal rules restrict any use of the information to criminally investigate or prosecute any alcohol or drug abuse patient.[facility] HospitalIn the event this information is protected by the Federal Confidentiality of Alcohol and Drug Abuse Patient Records regulations: The Federal rules restrict any use of the information to criminally investigate or prosecute any alcohol or drug abuse patient.[facility] HospitalIn the event this information is protected by the Federal Confidentiality of Alcohol and Drug Abuse Patient Records regulations: The Federal rules restrict any use of the information to criminally investigate or prosecute any alcohol or drug abuse patient.[facility] HospitalIn the event this information is protected by the Federal Confidentiality of Alcohol and Drug Abuse Patient Records regulations: The Federal rules restrict any use of the information to criminally investigate or prosecute any alcohol or drug abuse patient.[facility] HospitalIn the event this information is protected by the Federal Confidentiality of Alcohol and Drug Abuse Patient Records regulations: The Federal rules restrict any use of the information to criminally investigate or prosecute any alcohol or drug abuse patient.[facility] Scheduled Active and Recently Administ ered Medications [...] BE BASED ON THE PRIMARY CLINICAL RECORDS. [employer] provides no warranty or guarantee of the accuracy or completeness of information in this document.
[2025-02-23 05:09] VITALS: BP 132/71; PULSE 81
--- NOTE | 2025-02-23 11:02 | OB.TRI.NOTE ---
HPI - General General Date of Service: 02/23/25 HPI Narrative SHEA CALLAHAN, is a 40 F @ 38.2 weeks reports ctx- here to r/o labor [facility] Medical History (Updated 02/23/25 @ 11:[address] Linda Rosario MD) History of pre-term labor Anxiety depression Pre-eclampsia Home Medications ?Medication ?Instructions ?Recorded ?Last Taken ?Type vits,calcium no.78-iron 1 tab PO DAILY 12/22/15 Unknown History fumarate-folic acid 29 mg-1 mg tablet (Prenatabs FA) sertraline 100 mg tablet (Zoloft) 100 mg PO DAILY 12/06/24 Unknown History famotidine 20 mg tablet 20 mg PO DAILY 02/03/25 Unknown History Allergy/AdvReac Type Severity Reaction Status Date / Time No Known Allergies Allergy Verified 02/03/25 04:52 Social History Smoking Status: Former smoker History 6 Elective abortions Hx Para 3 Spontaneous abortions Hx # Term Pregnancies Ectopic pregnancies Hx # Pregnancies Multiple births # of living children Physical Exam Narrative per nursing ve: 2 NST FHR Rate Baby A Baseline: 130 Variability:: Moderate Accelerations:: 15 x 15 Decelerations:: None NST Reactive:: Yes FHR Category:: Category I Uterine Activity:: irregular Assessment & Plan (1) Uterine contractions: (2) 38 weeks gestation of : PLAN: Plan @ 38.2 weeks - false labor 1) dc home 2) well being established
== END 2025-02-23 07:03 | disposition home or self-care (01) ==
LOC: WPOUT 04:52 → WP 04:53
PROVIDERS: Referring Provider Obstetrics & Gynecology; Visit Provider Obstetrics & Gynecology
DX: O47.1 False labor at or after 37 completed weeks of gestation (principal); O99.343 Other mental disorders complicating pregnancy, third trimester; F41.9 Anxiety disorder, unspecified; Z3A.38 38 weeks gestation of pregnancy; Z87.59 Personal history of other complications of pregnancy, childbirth and the puerperium; Z86.59 Personal history of other mental and behavioral disorders; Z79.899 Other long term (current) drug therapy; Z87.891 Personal history of nicotine dependence
CPT/HCPCS: 59025; 59050; 99221; G0378